=== PATIENT | female | born 1995 | race Caucasian/White ===

== ENCOUNTER 2023-01-22 14:28 | Outpatient (OUT) | payer BC, SELFPAY ==
--- NOTE | 2023-01-22 14:29 | US_ITS ---
[place] [id number] Patient Name: LEENA OCRDERO MRN: [id number] date: 1995 Sex: F Assigned Patient Location: US Current Patient Location: US Accession/Order Number: [id number] Exam Date: 01/22/2023 14:30 Report Date: 01/22/2023 15:40 At the request of: GINNY JAMES Procedure: US OB transvaginal EXAMINATION: US OB transvaginal HISTORY: MISSED MENSES COMPARISON: No relevant comparison available. FINDINGS: GESTATIONAL SAC: Present and normal appearing. YOLK SAC: Present and normal appearing. POLE: Present and normal appearing. CARDIAC: Present. UTERUS: Normal size and appearance. OVARIES: Right: Normal. Left: Normal. CERVIX: 4.8 cm in length and closed. CUL-DE-SAC: Normal. OTHER: Prominent periuterine vessels; nonspecific. AGE BY LMP: 9 weeks 0 days MARIO BY LMP: 08/27/2023 AGE BY US CRL: 9 weeks 1 day MARIO BY US CRL: 08/26/2023 US/US OB transvaginal IMPRESSION: 1. Single live intrauterine . Electronically authenticated by: SAMIR SHANNON Date: 01/22/2023 15:40
== END 2023-01-22 14:29 | disposition home or self-care (01) ==
PROVIDERS: Visit Provider Obstetrics & Gynecology
DX: Z34.91 Encounter for supervision of normal pregnancy, unspecified, first trimester (principal); Z3A.09 9 weeks gestation of pregnancy; N92.6 Irregular menstruation, unspecified
CPT/HCPCS: 76817

== ENCOUNTER 2023-02-20 12:21 | Outpatient (OUT) | payer BC, SELFPAY ==
--- OUTSIDE RECORDS SUMMARY | 2023-02-20 12:26 | XMS_ITS | CCD ---
Author Name Unknown Address [address] [facility] [address] [place] [address] Organization [facility] Care Team Providers Care Quality Control Inspector Name Role Phone ERIKA, DR GROSS Admitting Unavailable ERIKA, DR GROSS Consulting Unavailable MISC, DR LOPES Primary Care Unavailable ERIKA, DR GROSS Attending Unavailable ERIKA, DR GROSS Admitting Unavailable ERIKA, DR GROSS Consulting Unavailable MISC, DR LOPES Primary Care Unavailable ERIKA, DR GROSS Attending Unavailable ERIKA, DR GROSS Consulting Unavailable ERIKA, DR GROSS Attending Unavailable ERIKA, DR GROSS Admitting Unavailable REQUEST, DR ZIMMERMAN LISTED Primary Care Unavaila ble ZIEBFELISHA, DR SAMIR Edgar Consulting Unavailable ERIKA, DR GROSS Attending Unavailable MISC, DR LOPES Primary Care Unavailable ERIKA, DR GROSS Admitting Unavailable ERIKA, DR GROSS Consulting Unavailable ERIKA, DR GROSS Attending Unavailable MISC, DR LOPES Primary Care Unavailable ERIKA, DR GROSS Admitting Unavailable WANA, DR WENDY Christiansen Consulting Unavailable ERIKA, DR GROSS Consulting Unavailable ERIKA, DR GROSS Attending Unavailable ERIKA, DR GROSS Admitting Unavailable MISC, DR LOPES Primary Care Unavailable ERIKA, DR GROSS Consulting Unavailable ERIKA, DR GROSS Admitting Unavailable MISC, DR LOPES Primary Care Unavailable ERIKA, DR GROSS Consulting Unavailable ERIKA, DR GROSS Attending Unavailable ZIEBER, DR SAMIR Edgar Consulting Unavailable ERIKA, DR GROSS Attending Unavailable ERIKA, DR GROSS Admitting Unavailable ERIKA, DR GROSS Consulting Unavailable MISC, DR LOPES Primary Care Unavailable REIKA, DR GROSS Attending Unavailable ERIKA, DR GROSS Admitting Unavailable MISC, DR LOPES Primary Care Unavailable ERIKA, DR GROSS Consulting Unavailable LARA YOON Consulting Unavailable ERIKA, DR GROSS Procedure Practitioner Unavailab kavon REBOLLEDO, DR GROSS Admitting Unavailable MISC, DR LOPES Primary Care Unavailable ERIKA, DR GROSS Consulting Unavailable ERIKA, DR GROSS Attending Unavailable ZIEBER, DR SAMIR Edgar Consulting Unavailable MISC, DR LOPES Primary Care Unavailable KARASIK, DR WHITTEN Attending Unavailable ISABELLAASIK, DR WHITTEN Admitting Unavailable KARASIK, DR WHITTEN Consulting Unavailable ERIKA, DR GROSS Admitting Unavailable MISC, DR LOPES Primary Care Unavailable ERIKA, DR GROSS Consulting Unavailable ERIKA, DR GROSS Attending Unavailable Keith GARCIA Primary Care Physician NONE, XXXX Primary Care Physician Unavailab Ritesh David Attending Unavailable Amado Rordiguez Attending Unavailable Medications Current Medications Medication Drug Class(es) Dates Sig (Normalized) Sig (Original) citalopram 20 mg oral tablet (1 source) Serotonin Reuptake Inhibitor Start: 01-02-2023 citalopram 20 mg Tab Refills(s) 0 Start Date: 01/02/23 Status: Ordered dicyclomine hydrochloride 10 mg oral capsule (1 source) Anticholinergic Start: 01-02-2023 take 2 capsules by mouth four times daily Bentyl 10 mg Cap 20 mg = 2 cap(s), Oral, QID, # 20 cap(s), Refills(s) 0, Pharmacy: [facility]/pharmacy #[id number], 160.1, cm, 01/02/23 9:00:00 EST, Height/Length Dosing, 58.8, kg, 01/02/23 9:00:00 EST, Weight Dosing Start Date: 01/02/23 Status: Ordered ethinyl estradiol 0.02 mg / norethindrone acetate 1 mg oral tablet (1 source) Estrogen Start: 08-14-2020 Microgestin 03/14 20 mcg-1 mg oral tablet Refill(s) 0 Start Date: 08/14/20 Status: Ordered naproxen 500 mg delayed release oral tablet (1 source) Nonsteroidal Anti-inflammatory Drug Start: 06-21-2022 take 1 tablet by mouth twice daily as needed for pain naproxen 500 mg oral enteric coated tablet 500 mg = 1 tab(s), Oral, BID, PRN Pain, # 14 tab(s), Refills(s) 0, [id number] 160, cm, 06/20/22 23:30:00 EDT, Height/Length Dosing, 55, kg, 06/20/22 23:30:00 EDT, Weight Dosing Start Date: 06/21/22 Status: Ordered Zofran ODT 4 mg Tab-Dis (2 sources) Start: 01-02-2023 take 1 tablet by mouth every six hours as needed for nausea Zofran ODT 4 mg Tab-Dis 4 mg = 1 tab(s), Oral, q6hr, PRN Nausea/Vomiting, # 12 tab(s), Refills(s) 0, [id number] 160.1, cm, 01/02/23 9:00:00 EST, Height/Length Dosing, 58.8, kg, 01/02/23 9:00:00 EST, Weight Dosing Start Date: 01/02/23 Status: Ordered Start: 06-21-2022 take 1 tablet by mandy th every eight hours as needed for nausea Zofran ODT 4 mg Tab-Dis 4 mg = 1 tab(s), Oral, q8hr, PRN Nausea/Vomiting, # 16 tab(s), Refills(s) 0, [id number], 160, cm, 06/20/22 23:30:00 EDT, Height/Length Dosing, 55, kg, 06/20/22 23:30:00 EDT, Weight Dosing Start Date: 06/21/22 Status: Ordered Problems Active Problems Problem Classification Problem Date Documented Da te Episodic/Chronic Abdominal pain (2 sources) Abdominal pain; Translations: [Unspecified abdominal pain] Onset: 06-21-2022 Episodic Anxiety disorders (1 source) Anxiety disorder, unspecified; Translations: [ANXIETY DISORDER UNSPECIFIED] Onset: 11-21-2021 Chronic Menstrual disorders (4 sources) Irregular menstruation, unspecified; Translations: [IRREGULAR MENSTRUATION UNSPECIFIED] Onset: 04-05-2021 Chronic Mood disorders (1 source) Major depressive disorder, single episode, unspecified; Translations: [LAURA DEPRESS D/O SINGLE EPIS UNS] Onset: 11-21-2021 Chronic Nausea and vomiting (1 source) Vomiting; Translations: [Vomiting, unspecified] Onset: 01-02-2023 Episodic Other complications of ; puerperium affecting management of mother (1 source) Streptococcus B carrier state complicating childbirth; Translations: [STREP B HESS STATE COMP CHILDBIRTH] Onset: 11-21-2021 Episodic Other complications of ; puerperium affecting management of mother (1 source) Other mental disorders complicating childbirth; Translations: [OTH MENTAL D/O COMP CHILDBIRTH] Onset: 11-21-2021 Episodic Other complications of (4 sources) Maternal care for excessive growth, third trimester, not applicable or unspecified; Translations: [MAT CARE EXCSS FTL GRTH 3RD TRI UNS] Onset: 10-23-2021 Episodic Other gastrointestinal disorders (1 source) Diarrhea; Translations: [Diarrhea, unspecified] Onset: 01-02-2023 Episodic Other and delivery including normal (11 sources) Single live ; Translations: [Encounter for supervision of normal , unspecified, unspecified trimester] Onset: 04-10-2021 Episodic Other screening for suspected conditions (not mental disorders or infectious disease) (13 sources) Encounter for screening for Streptococcus B; Translations: [Encounter for screening for diabetes mellitus] Onset: 05-02-2021 Episodic Residual codes; unclassified (1 source) 39 weeks gestation of ; Translations: [39 WEEKS GESTATION OF ] Onset: 11-21-2021 Episodic Residual codes; unclassified (1 source) 36 weeks gestation of ; Translations: [36 WEEKS GESTATION OF ] Onset: 10-23-2021 Episodic Residual codes; unclassified (1 source) 32 weeks gestation of ; Translations: [32 WEEKS GESTATION OF ] Onset: 09-29-2021 Episodic Screening and history of mental health and substance abuse codes (1 source) Personal history of nicotine dependence; Translations: [PERSONAL HISTORY OF NICOTINE DEPEND] Onset: 11-21-2021 Episodic Substance-related disorders (2 sources) Drug use complicating childbirth; Translations: [Cannabis use, unspecified, uncomplicated] Onset: 11-21-2021 Episodic Unclassified (1 source) CONTACT W/AND (SUSP) EXPOS COVID-19; Translations: [CONTACT W/AND (SUSP) EXPOS COVID-19] Onset: 11-21-2021 Past or Other Problems Problem Classification Problem Date Documented Date Episodic/Chronic Immunizations and screening for infectious disease (5 sources) Encounter for screening for infections with a predominantly sexual mode of transmission; Translations: [Contact with and (suspected) exposure to infections with a predominantly sexual mode of transmission] Onset: 04-30-2021 Episodic Other female genital disorders (4 sources) Other specified noninflammatory disorders of vagina; Translations: [OTH SPEC NONINFLAMMATORY D/O VAGINA] Onset: 07-30-2021 Episodic Residual codes; unclassified (1 source) Less than 8 weeks gestation of ; Translations: [< 8 WEEKS GESTATION ] Onset: 04-10-2021 Episodic Results Test Name Value Interpretation Reference Range Facility Auto Diffon 01-02-2023 Basophils/100 WBC (Bld) 0.2 % Normal 0.0-2.0 [facility] Comment on above: Order Comment: Order Added by Discern Expert. Performed By: #### 2 [id number], [id number], 5545528, 5044735, 7712748, 1725079, 27901967 ####[facility] [address] [place] [address] Basophils/Leukocytes Auto (Bld) [Pure # fraction] 0.0 E9/L Normal 0.0-0.2 [facility] Comment on above: Order Comment: Order Added by Discern Expert. Performed By: #### 2 656668, 55655353, 9479963, 8281352, 8212814, 5365857, 33416497 ####[facility] [address] [place] [address] Eosinophils/100 WBC (Bld) 0.1 % Normal 0.0-8.0 [facility] Comment on above: Order Comment: Order Added by Discern Expert. Performed By: #### 2 297744, 43080541, 8938526, 7057330, 6344977, 5160034, 73321947 ####[facility] [address] [place] [address] Eosinophils/Leukocytes Auto (Bld) [Pure # fraction] 0.0 E9/L Normal 0.0-0.5 [facility] Comment on above: Order Comment: Order Added by Discern Expert. Performed By: #### 2 119086, 37164104, 0963516, 4259483, 7967604, 8150145, 81789100 ####[facility] [address] [place] [address] Lymphocytes/100 WBC (Bld) 8.0 % Low 14.0-50.0 [facility] Comment on above: Order Comment: Order Added by Discern Expert. Performed By: #### 2 616443, 97092914, 1372944, 2991215, 9112318, 5737653, 46593010 ####[facility] [address] [place] [address] Lymphocytes/Leukocytes Auto (Bld) [Pure # fraction] 1.1 E9/L Normal 1.0-4.0 [facility] Comment on above: Order Comment: Order Added by Mendy Expert. Performed By: #### 2 302710, 85399333, 0331351, 4564686, 8406049, 7485946, 41833708 ####[facility] [address] [place] [address] Monocytes/100 WBC (Bld) 2.9 % Low 4.0-14.0 [facility] Comment on above: Order Comment: Order Added by Mendy Expert. Performed By: #### 2 410404, 76848291, 5156229, 9404134, 4807069, 1369243, 25779142 ####[facility] [address] [place] [address] Monocytes/Leukocytes Auto (Bld) [Pure # fraction] 0.4 E9/L Normal 0.2-1.0 [facility] Comment on above: Order Comment: Order Added by Mendy Expert. Performed By: #### 2 246764, 90905997, 9614054, 3849104, 6443528, 9254807, 22375015 ####[facility] [address] [place] [address] Neutrophils/100 WBC (Bld) 88.8 % High 36.0-75.0 [facility] Comment on above: Order Comment: Order Added by Discern Expert. Performed By: #### 2 020351, 94940923, 5121335, 3632835, 4304350, 4753116, 93926983 ####[facility] [address] [place] [address] Neutrophils/Leukocytes Auto (Bld) [Pure # fraction] 12.0 E9/L High 2.0-7.5 [facility] Comment on above: Order Comment: Order Added by Discern Expert. Performed By: #### 2 592495, 02802920, 7045611, 4896463, 7324720, 8946132, 84773202 ####[facility] [address] [place] [address] BMPon 01-02-2023 Creatinine [Mass/Vol] 0.5 mg/dL Normal 0.5-1.3 [facility] Comment on above: Performed By: #### 2 516217, 55719976, 7717010, 6778545, 2235422, 2767906, 71564407 ####[facility] [address] [place] [address] Urea nitrogen [Mass/Vol] 10 mg/dL Normal 5-21 [facility] Comment on above: Performed By: #### 2 782287, 49751834, 1518412, 3115300, 3599590, 0507255, 95743778 ####[facility] [address] [place] [address] Urea nitrogen/Creatinine [Mass ratio] 20 No Units Normal 10-20 [facility] Comment on above: Performed By: #### 2 891188, 82747519, 7793878, 2036273, 5830061, 8050910, 21939464 ####[facility] [address] [place] [address] Anion gap [Moles/Vol] 14 mmol/L Normal 6-16 [facility] Comment on above: Performed By: #### 2 076792, 42619123, 8315319, 0153530, 9765782, 5955469, 34106268 ####[facility] [address] [address] Calcium [Mass/Vol] 8.9 mg/dL Normal 8.9-11.1 [facility] Comment on above: Performed By: #### 2 401155, 40864522, 2110712, 5043949, 7511575, 5842110, 25891426 ####[facility] [address] [address] Chloride [Moles/Vol] 103 mmol/L Normal 101-111 [facility] Comment on above: Performed By: #### 2 920549, 53286946, 5713188, 7719709, 5951478, 3642764, 79584582 ####[facility] [address] [place] [address] CO2 [Moles/Vol] 21 mmol/L Normal 21-31 [facility] Comment on above: Performed By: #### 2 380701, 42765737, 5261553, 0591770, 3623730, 4909535, 71997102 ####[facility] [address] [place] [address] Glucose [Mass/Vol] 119 mg/dL Normal 55-199 [facility] Comment on above: Result Comment: If t his glucose result represents a fasting glucose, interpretation should refer to the following reference range: 55-99 mg/dL Performed By: #### 2 485810, 26089963, 3297054, 5284789, 3875032, 5062053, 53272371 ####[facility] [address] [address] Potassium [Moles/Vol] 3.2 mmol/L Low 3.5-5.3 [facility] Comment on above: Performed By: #### 2 826051, 21392231, 8870590, 5623383, 7843026, 4256794, 70124951 ####[facility] [address] [address] Sodium [Moles/Vol] 135 mmol/L Normal 135-145 [facility] Comment on above: Performed By: #### 2 889086, 24885144, 1890152, 2806402, 6449271, 5312823, 87608859 ####[facility] [address] [place] [address] BhCG Quanton 01-02-2023 [place] [address] m[IU]/mL High 1-3 [facility] Comment on above: Result Comment: GEST ATIONAL AGE HCG RANGE (mIU/mL) NON- <1-3 0.2-1 WEEKS 5-50 1-2 WEEKS 50-500 2-3 WEEKS 100-5,000 3-4 WEEKS 500-10,000 4-5 WEEKS 1,000-50,000 5-6 WEEKS 10,000-100,000 6-8 WEEKS 15,000-200,000 8-12 WEEKS 10,000-100,000 Performed By: #### 2 585373 ####[facility] [address] [place] [place] [address] CBC w/ Auto Diffon Erythrocyte distribution width (RBC) [Ratio] 12.3 % Normal 10.9-14.2 [facility] Comment on above: Performed By: #### 2 506163, 00336241, 4439595, 1759548, 8691414, 7810922, 57957651 ####[facility] [address] [place] [address] Hematocrit (Bld) [Volume fraction] 36.5 % Normal 34.0-46.0 [facility] Comment on above: Performed By: #### 2 840676, 06659442, 7902731, 2790454, 6158377, 5909866, 79743703 ####[facility] [address] [place] [address] Hemoglobin (Bld) [Mass/Vol] 12.4 g/dL Normal 12.0-16.0 [facility] Comment on above: Performed By: #### 2 855326, 81178475, 4166955, 6840923, 1572997, 9032001, 58827332 ####[facility] [address] [place] [address] MCH (RBC) [Entitic mass] 30.1 pg Normal 27.0-34.0 [facility] Comment on above: Performed By: #### 2 503822, 96066666, 6326185, 9561017, 2933148, 7319054, 15774657 ####[facility] [address] [place] [address] MCHC (RBC) [Mass/Vol] 33.9 g/dL Normal 31.4-36.0 [facility] Comment on above: Performed By: #### 2 675746, 56784065, 3449039, 3421702, 2528025, 7531636, 43741494 ####[address] [address] MCV (RBC) [Entitic vol] 88.8 fL Normal 80.0-100.0 [facility] Comment on above: Performed By: #### 2 020647, 06774018, 6005106, 2235465, 3199376, 0840236, 00681578 ####[address] [address] Platelet mean volume (Bld) [Entitic vol] 7.4 fL Normal 6.4-10.8 [facility] Comment on above: Performed By: #### 2 133405, 81811789, 8935570, 3324848, 8938068, 4230021, 40660334 ####[facility] [address] [place] [address] Platelets (Bld) [#/Vol] 283.0 E9/L Normal 150.0-500.0 [facility] Comment on above: Performed By: #### 2 077913, 88436222, 0818828, 2018009, 6592094, 5229293, 56237356 ####[address] [address] RBC (Bld) [#/Vol] 4.1 E12/L Low 4.3-5.9 [facility] Comment on above: Performed By: #### 2 338681, 22840341, 3969420, 4346047, 5383730, 9096423, 35196051 ####[facility] [address] [place] [address] WBC corrected for nucl RBC Auto (Bld) [#/Vol] 13.5 E9/L High 4.0-11.0 [facility] Comment on above: Performed By: #### 2 882633, 54569559, 0883198, 3840843, 8554834, 6586554, 43406788 ####[facility] [address] [place] [address] CHEMISTRYOrdered By: SYSTEM SYSTEM on 01-02-2023 Albumin [Mass/Vol] 4.1 g/dL Normal 3.3 - 5.0 gm/dL [facility] Albumin/Globulin [Mass ratio] 1.2 {ratio} Normal 1.1 - 2.2 [facility] ALP [Catalytic activity/Vol] 57 [iU]/d Normal 21 - 98 Int._Unit/L [facility] ALT No additional P-5'-P [Catalytic activity/Vol] 13 [iU]/d Normal 6 - 46 Int._Unit/L [facility] Anion gap [Moles/Vol] 14 mmol/L Normal 6 - 16 mEq/L [facility] AST [Catalytic activity/Vol] 26 [iU]/d Normal 5 - 43 Int._Unit/L [facility] Bilirubin [Mass/Vol] 1.0 mg/dL Normal 0.0 - 1 .1 mg/dL [facility] Bilirubin.direct [Mass/Vol] 0.2 mg/dL Normal 0.1 - 0.4 mg/dL [facility] Bilirubin.indirect [Mass or moles/Vol] 0.8 mg/dL Normal 0.1 - 0.9 mg/dL [facility] Calcium [Mass/Vol] 8.9 mg/dL Normal 8.9 - 11. 1 mg/dL [facility] Chloride [Moles/Vol] 103 mmol/L Normal 101 - 1 11 mmol/L [facility] CO2 [Moles/Vol] 21 mmol/L Normal 21 - 31 mmol/L [facility] Creatinine [Mass/Vol] 0.5 mg/dL Normal 0.5 - 1.3 mg/dL [facility] GFR/1.73 sq M.predicted among non-blacks MDRD (S/P/Bld) [Vol rate/Area] 133 mL/min/1.73 m2 Normal >=59mL/min/1 .73 m2 [facility] Chem S Comment on above: Interpretive Data: C hronic kidney disease could be indicated at eGFR's of less than 60 mL/min/1.73m2. Kidney failure is indicated at less than 15 mL/min/1.73m2. Globulin (S) [Mass/Vol] 3.5 g/dL Normal 1.4 - 4.0 gm/dL [facility] Glucose [Mass/Vol] 119 mg/dL Normal 55 - 199 mg/dL [facility] Comment on above: Interpretive Data: I f this glucose result represents a fasting glucose, interpretation should refer to the following reference range: 55-99 mg/[place] [address] m[IU]/mL High 1 - 3 mIU/mL [facility] Comment on above: Interpretive Data: G ESTATIONAL AGE HCG RANGE (mIU/mL) NON- <1-3 0.2-1 WEEKS 5-50 1-2 WEEKS 50-500 2-3 WEEKS 100-5,000 3-4 WEEKS 500-10,000 4-5 WEEKS 1,000-50,000 5-6 WEEKS 10,000-100,000 6-8 WEEKS 15,000-200,000 8-12 WEEKS 10,000-100,000 Lipase [Catalytic activity/Vol] 79 U/L High 13 - 58 unit/L [facility] Potassium [Moles/Vol] 3.2 mmol/L Low 3.5 - 5.3 mmol/L [facility] Protein [Mass/Vol] 7.6 g/dL Normal 6.0 - 7.8 gm/dL [facility] Sodium [Moles/Vol] 135 mmol/L Normal 135 - 145 mmol/L [facility] Urea nitrogen [Mass/Vol] 10 mg/dL Normal 5 - 21 mg/dL [facility] nitrogen/Creatinine [Mass ratio] 20 mg/mg Normal 10 - 20 [facility] COAGULATIONOrdered By: Natalia Wang on 01-02-2023 aPTT Coag (PPP) [Time] 29.4 s Normal 25.1 - 36.5 second(s) [facility] Auto Coag Comment on above: Interpretive Data: P arameter 15 days - 4 weeks 1 - 5 months 6 - 11 months 1 - 5 years 6 - 10 years 11 - 17 years PTT Mean: 35.4 (27.6-45.6) Mean: 33.5 (24.8-40.7) Mean: 32.4 (25.1-40.7) Mean: 31.6 (24.0-39.2) Mean: 31.6 (26.9-38.7) Mean: 31.0 (24.6-38.4) Pediatric Reference ranges were obtained from a study by Kyle Siddiqui et al. prepared from 1437 samples obtained at 7 different centers using the same coagulation reagent and instrumentation as [facility]. Currently there are no coagulation studies available worldwide for children to 14 days, and no normal ranges. Heparin therapeutic range (represented by Anti-Factor Xa activity of 0.2 - 0.4 U/mL) corresponds to PTT of 56.6 - 109.0 sec. INR Coag (PPP) [Relative time] 1.1 {INR} Invalid Interpretation Code [facility] Auto Coag Comment on above: Interpretive Data: I NR results are specifically intended to assess patients stabilized on long-term Anticoagulation therapy suggested INR s Less Intensive Anticoagulation 2.0 3.0 Conventional Range 3.0 4.5 PT Coag (PPP) [Time] 12.1 s Normal 9.4 - 1 2.5 second(s) [facility] Auto Coag Comment on above: Interpretive Data: 1 5 days - 4 weeks 1 - 5 months 6 -11 months 1 5 years 6 10 years 11 -17 years Mean: 11.2 (9.5 12.6) Mean: 11.0 (9.7 12.8) Mean: 11.0 (9.8 13.0) Mean: 11.3 (9.9 13.4) Mean: 11.7 (10.0 14.6) Mean: 11.8 (10.0 - 14.1) Pediatric Reference ranges were obtained from a study by Kyle Siddiqui et al. prepared from 1437 samples obtained at 7 different centers using the same coagulation reagent and instrumentation as [facility]. Currently there are no coagulation studies available worldwide for children to 14 days, and no normal ranges. Consent for Treatmenton 12-24 Consent for Treatment [id number] #1.00TIFF Normal [facility] Discharge Instructionson Discharge Instructions [id number]#1.00TIFF Normal [facility] ED Clinical Summaryon 2022 ED Clinical Summary [place] [id number] ED Clinical Summary Person Information Name: LEENA CORDERO Zina/[facility] Age: 27 Years : 1995 Sex: Female Language: Argentine PCP: NONE, XXXX Marital Status: Single Visit Id: Visit Reason: Vomiting; Abdominal pain - ; ABDOMINAL PAIN, LEFT SIDE, VOMITING, DIAREHA Speciality: Acuity: 3 Enc Type: Emergency Med Service: Emergency Arrival: 01/02/2023 08:53:06 Discharge: 01/02/2023 13:45:47 LOS: 000 04:52 Checkin: 01/02/2023 08:53:06 Checkout: 01/02/2023 13:45:47 Dispo Type: Home (Routine DC) EVENTS: Event Name Event Status Request Date/Time Start Date/Time Complete Date/Time Arrive Complete 01/02/2023 08:53:06 01/02/2023 08:53:06 01/02/2023 08:53:06 Document Home Meds Request 01/02/2023 08:53:06 Triage Complete 01/02/2023 08:53:06 01/02/2023 09:00:24 01/02/2023 09:00:24 Bed Assign Complete 01/02/2023 08:55:15 01/02/2023 08:55:15 01/02/2023 08:55:15 Dr Exam Complete 01/02/2023 08:55:15 01/02/2023 08:58:26 01/02/2023 08:58:26 RN Exam Complete 01/02/2023 08:55:15 01/02/2023 09:06:42 01/02/2023 09:06:42 Registration Complete 01/02/2023 08:57:19 01/02/2023 08:57:19 01/02/2023 08:57:19 Reg Complete Request 01/02/2023 08:57:19 Reg Bed Request Complete 01/02/2023 08:57:19 01/02/2023 08:57:19 01/02/2023 08:57:19 Registration Request 01/02/2023 08:58:26 Meds Admin Complete 01/02/2023 09:08:17 01/02/2023 09:30:02 Pending Labs Complete 01/02/2023 09:08:17 01/02/2023 11:13:19 Lab Complete 01/02/2023 09:08:17 01/02/2023 11:13:19 Urine Collect Complete 01/02/2023 09:08:17 01/02/2023 11:13:19 Pending Labs Complete 01/02/2023 09:21:04 01/02/2023 09:21:04 01/02/2023 09:42:58 Lab Complete 01/02/2023 09:21:04 01/02/2023 09:21:04 01/02/2023 09:42:58 Pending Labs Complete 01/02/2023 09:25:31 01/02/2023 09:25:31 01/02/2023 09:25:31 Pending Labs Complete 01/02/2023 09:26:33 01/02/2023 09:26:33 01/02/2023 09:26:43 Lab Complete 01/02/2023 09:26:33 01/02/2023 09:26:33 01/02/2023 09:26:43 US Complete 01/02/2023 10:09:14 01/02/2023 10:46:52 01/02/2023 11:36:24 Meds Admin Complete 01/02/2023 10:12:45 01/02/2023 10:24:51 Meds Admin Complete 01/02/2023 10:16:51 01/02/2023 10:24:52 US Complete 01/02/2023 10:20:20 01/02/2023 10:46:55 01/02/2023 11:36:43 Patient Care Complete 01/02/2023 10:47:32 01/02/2023 10:48:45 Pending Labs Request 01/02/2023 10:47:32 Lab Request 01/02/2023 10:47:32 Urine Collect Request 01/02/2023 10:47:32 US Complete 01/02/2023 11:37:16 01/02/2023 11:37:47 Meds Admin Complete 01/02/2023 11:40:53 01/02/2023 11:49:32 Discharge Complete 01/02/2023 13:28:35 01/02/2023 13:45:55 01/02/2023 13:45:55 Transfer Complete 01/02/2023 13:45:55 01/02/2023 13:45:55 01/02/2023 13:45:55 ADDRESS: [address] [place] [phone] PHYS DOC NOTES: MEDICAL INFORMATION: Prescriptions Given: New Medications [facility] [facility]/pharmacy #[id number], [address] [place], [place] [id number], [phone] dicyclomine (Bentyl 10 mg Cap) 2 Capsules By Mouth 4 times a day. Refills: 0. ondansetron (Zofran ODT 4 mg Tab-Dis) 1 Tablets By Mouth every 6 hours as needed Nausea/Vomiting. Refills: 0. Medications to Continue with No Changes Other Medications citalopram (citalopram 20 mg Tab) PATIENT EDUCATION INFORMATION: Instructions: First Trimester of ; Diarrhea, Adult; Nausea and Vomiting, Adult; Abdominal Pain, Adult Follow up: With: Address: When: Ginny REBOLLEDO [facility], [address] [place] [address] , [place] [address] Business (1) In 3 days 01/05/2023 Comments: Make sure to follow-up with Dr. Rebolledo for your . Follow-up with Dr. Cuellar for the belly pain. Return to the emergency room if the abdominal pain recurs, vomiting recurs, vaginal bleeding or any new symptoms. With: Address: When: Patricia Murrieta In 3 days 01/05/2023 DIAGNOSIS: 1:Abdominal pain; 2:Vomiting and diarrhea; 3:Intrauterine ; Diarrhea, unspecified Normal [facility] ED Note-Physicianon 01-03-20 ED Note-Physician Basic Information Time Seen: Amado Rodriguez M.D. 01/02/2023 08:58 Chief Complaint Patient presens with vomitting and left upper abd pain that started this morning. pt 6 weeks History of Present Illness The patient is a 27-year-old female 6 weeks , A0, who presented to the emergency room with abdominal pain, vomiting and diarrhea. The patient states she woke up this morning with vomiting, diarrhea and abdominal pain. Her diarrhea is loose. Denies any blood with diarrhea. She reports vomiting unable to keep anything down. The patient is complaining of pain and points to the left upper quadrant. She describes the pain as achy/sharp. The patient reports some chills but no fever. She denies any vaginal bleeding or vaginal discharge. The patient denies any other associated symptoms. Review of Systems Additional ROS info: Except as noted in the above Review of Systems and in the History of Present Illness all other systems have been reviewed and are negative or noncontributory. Physical Exam Vitals & Measurements T: 36.6 ?C(Oral) HR: 67(Monitored) RR: 16 BP: 107/81 SpO2: 100% HT: 160.08 cm WT: 58.8 kg BMI: 22.95 General: alert, mild distress Skin: warm, dry Head: no trauma, normocephalic Neck: Trachea midline Eye: normal conjunctiva, sclera clear ENMT: Oral mucosa moist Cardiovascular: regular rate and rhythm Respiratory: Lungs CTA, respirations non labored, breath sounds equal Gastrointestinal: soft, non distended, mild to moderate tenderness in epigastric and left upper quadrant, no guarding, normal bowel sounds Musculoskeletal: normal ROM, no tenderness, normal strength. Extremities: no deformity, no trauma Neurological: Alert and oriented, speech normal, no focal neuro deficits Psychiatric: cooperative, affect appropriate for age Medical Decision Making MEDICAL DECISION MAKING Number and Complexity of Problems Differential Diagnosis: [] [facility] Data External documents reviewed: [] My EKG interpretation: [] My CT interpretation: [] My X-ray interpretation: [] My Ultrasound interpretation: [] Decision rules/scores evaluated: [] Discussed with: [] Treatment and Disposition ED Course: The patient presented with abdominal pain vomiting and diarrhea. She points to the epigastric area and left upper quadrant for the pain. She has mild tenderness in epigastric and left upper quadrant. Abdomen is soft. Does not appear to be surgical. The patient states she is 6 weeks . She has no vaginal bleeding. Beta hCG quant is 35,505 the rest of blood work shows slight leukocytosis. More likely reactive. More likely her vomiting and diarrhea and abdominal pain are due to viral gastroenteritis. Ultrasound of the gallbladder is negative. Pelvic ultrasound shows intrauterine single consistent with 6 weeks and 2 days. heart tone 117 bpm. The patient was given IV fluid antiemetic pain medication and her pain improved. She felt much better and comfortable. She feels comfortable going home. We will discharge patient home follow-up with her primary care and her OB. She is instructed to return to the emergency room if her pain gets worse, vaginal bleeding or any new symptoms. Shared decision making: [] Code status: [] Assessment/Plan 1. Abdominal pain (R10.9: Unspecified abdominal pain) 2. Vomiting and diarrhea (R11.10: Vomiting, unspecified) 3. Intrauterine (Z34.90: Encounter for supervision of normal , unspecified, unspecified trimester) Diarrhea, unspecified (R19.7: Diarrhea, unspecified) Orders: acetaminophen + Generic Diluent 100 mL, 1,000 mg = 100 mL, Soln-IV, IV Piggyback, Once, Stop date 01/02/23 10:12:00 EST, STAT, Start date 01/02/23 10:12:00 EST, 400 mL/hr, Infuse over 15 minute(s) dicyclomine, 20 mg = 2 mL, Injection, IntraMuscular, Once, Stop date 01/02/23 9:08:00 EST, STAT, Start date 01/02/23 9:08:00 EST, 01/02/23 9:08:00 EST dicyclomine, 20 mg = 2 cap(s), Oral, QID, # 20 cap(s), Refills(s) 0, [id number], 160.1, cm, 01/02/23 9:00:00 EST, Height/Length Dosing, 58.8, kg, 01/02/23 9:00:00 EST, Weight Dosing famotidine, 20 mg = 2 mL, Soln-IV, IV Push, Once, Stop date 01/02/23 10:16:00 EST, STAT, Start date 01/02/23 10:16:00 EST, 01/02/23 10:16:00 EST nalbuphine, 5 mg = 0.5 mL, Injection, IV Push, Once, Stop date 01/02/23 11:40:00 EST, STAT, Start date 01/02/23 11:40:00 EST, 01/02/23 11:40:00 EST ondansetron, 4 mg = 2 mL, Injection, IV Push, Once, Stop date 01/02/23 9:08:00 EST, STAT, Start date 01/02/23 9:08:00 EST, 01/02/23 9:08:00 EST ondansetron, 4 mg = 1 tab(s), Oral, q6hr, PRN Nausea/Vomiting, # 12 tab(s), Refills(s) 0, Pharmacy: [facility]/pharmacy #[id number], 160.1, cm, 01/02/23 9:00:00 EST, Height/Length Dosing, 58.8, kg, 01/02/23 9:00:00 EST, Weight Dosing Sodium Chloride 0.9% intravenous solution, 1,000 mL, Soln-IV, IV, Once, Stop date 01/02/23 9:08:00 EST, STAT, Start date 01/02/23 9:08:00 E (more content not included)... [facility] Comment on above: Result Comment: Elec tronically Signed By: Jennifer Lopez, Amado Nixon\.br\Date and Time Signed: 01/02/23 16:52 EST ED Patient Education Noteon 01-02-2023 ED Patient Education Note Gastroenterology Nausea and Vomiting, Adult Nausea is the feeling that you have an upset stomach or that you are about to vomit. As nausea gets worse, it can lead to vomiting. Vomiting is when stomach contents forcefully come out of your mouth as a result of nausea. Vomiting can make you feel weak and cause you to become dehydrated. Dehydration can make you feel tired and thirsty, cause you to have a dry mouth, and decrease how often you urinate. Older adults and people with other diseases or a weak disease-fighting system (immune system) are at higher risk for dehydration. It is important to treat your nausea and vomiting as told by your health care provider. Follow these instructions at home: Watch your symptoms for any changes. Tell your health care provider about them. Eating and drinking ? Take an oral rehydration solution (ORS). This is a drink that is sold at pharmacies and retail stores. ? Drink clear fluids slowly and in small amounts as you are able. Clear fluids include water, ice chips, low-calorie sports drinks, and fruit juice that has water added (diluted fruit juice). ? Eat bland, fowm-pp-vkppkq foods in small amounts as you are able. These foods include bananas, applesauce, rice, lean meats, toast, and crackers. ? Avoid fluids that contain a lot of sugar or caffeine, such as energy drinks, sports drinks, and soda. ? Avoid alcohol. ? Avoid spicy or fatty foods. General instructions ? Take pwee-gzy-jonharj and prescription medicines only as told by your health care provider. ? Drink enough fluid to keep your urine pale yellow. ? Wash your hands often using soap and water for at least 20 seconds. If soap and water are not available, use hand transfer man. ? Make sure that everyone in your household washes their hands well and often. ? Rest at home while you recover. ? Watch your condition for any changes. ? Take slow and deep breaths when you feel nauseous. ? Keep all follow-up visits. This is important. Contact a health care provider if: ? Your symptoms get worse. ? You have new symptoms. ? You have a fever. ? You cannot drink fluids without vomiting. ? Your nausea does not go away after 2 days. ? You feel light-headed or dizzy. ? You have a headache. ? You have muscle cramps. ? You have a rash. ? You have pain while urinating. Get help right away if: ? You have pain in your chest, neck, arm, or jaw. ? You feel extremely weak or you faint. ? You have persistent vomiting. ? You have vomit that is bright red or looks like black coffee grounds. ? You have bloody or black stools (feces) or stools that look like tar. ? You have a severe headache, a stiff neck, or both. ? You have severe pain, cramping, or bloating in your abdomen. ? You have difficulty breathing, or you are breathing very quickly. ? Your heart is beating very quickly. ? Your skin feels cold and clammy. ? You feel confused. ? You have signs of dehydration, such as: ? Dark urine, very little urine, or no urine. ? Cracked lips. ? Dry mouth. ? Sunken eyes. ? Sleepiness. ? Weakness. These symptoms may be an emergency. Get help right away. Call 911. ? Do not wait to see if the symptoms will go away. ? Do not drive yourself to the hospital. Summary ? Nausea is the feeling that you have an upset stomach or that you are about to vomit. As nausea gets worse, it can lead to vomiting. Vomiting can make you feel weak and cause you to become dehydrated. ? Follow instructions from your health care provider about eating and drinking to prevent dehydration. ? Take ethn-rnb-xotfzmk and prescription medicines only as told by your health care provider. ? Contact your health care provider if your symptoms get worse, or you have new symptoms. ? Keep all follow-up visits. This is important. This information is not intended to replace advice given to you by your health care provider. Make sure you discuss any questions you have with your health care provider. Document Revised: 08/16/2021 Document Reviewed: 08/16/2021 [employer] Patient Education ? 2022 [employer] Abdominal Pain, Adult Pain in the abdomen (abdominal pain) can be caused by many things. Often, abdominal pain is not serious and it gets better with no treatment or by being treated at home. However, sometimes abdominal pain is serious. Your health care provider will ask questions about your medical history and do a physical exam to try to determine the cause of your abdominal pain. Follow these instructions at home: Medicines ? Take rdnt-ssh-ijhayvp and prescription medicines only as told by your health care provider. ? Do not take a laxative unless told by your health care provider. General instructions ? Watch your condition for any changes. ? Drink enough fluid to keep your urine pale yellow. ? Keep all follow-up visits as told by your h (more content not included)... Normal [facility] ED Patient Summaryon 023 ED Patient Summary [address] [address] Patient Discharge Instructions Person Information Name: LEENA CORDERO Age: 27 Years Arrival Date: 01/02/2023 08:53:06 Discharge Diagnosis: 1:Abdominal pain; 2:Vomiting and diarrhea; 3:Intrauterine ; Diarrhea, unspecified Primary Care Physician: NONE, XXXX Provider Information Primary Provider: Amado Rodriguez M.D. Advanced Director Of Student Life:None The exam and treatment you received in the Emergency Department were for an urgent problem and are not intended as complete care. It is important that you follow up with a doctor, nurse practitioner, or physician?s licensed physical therapy assistant for ongoing care. If your symptoms become worse or you do not improve as expected and you are unable to reach your usual health care provider, you should return to the Emergency Department. We are available 24 hours a day. LEENA CORDERO has been given the following list of patient education materials, prescriptions and follow-up instructions: Follow-up Instructions: With: Address: When: Ginny REBOLLEDO [facility], [address] [place] [address] [place] [address] [facility] () In 3 days 01/05/2023 Comments: Make sure to follow-up with Dr. Rebolledo for your . Follow-up with Dr. Cuellar for the belly pain. Return to the emergency room if the abdominal pain recurs, vomiting recurs, vaginal bleeding or any new symptoms. With: Address: When: Patricia Murrieta In 3 days 01/05/2023 In the event that this physician does not participate in your insurance network, please consult with your insurance company to find a nearby participating provider. Patient Education Materials: First Trimester of ; Diarrhea, Adult; Nausea and Vomiting, Adult; Abdominal Pain, Adult A MESSAGE TO ALL PATIENTS REGARDING OPIOIDS PRESCRIPTION OPIOIDS: WHAT YOU NEED TO KNOW Prescription opioids can be used to help relieve oltvoxrv-pp-ftvcsp pain and are often prescribed following a surgery or injury, or for certain health conditions. These medications can be an important part of the treatment but also come with serious risks. It is important to work with your healthcare provider to make sure you are getting the safest, most effective care. WHAT ARE THE RISKS AND SIDE EFFECTS OF OPIOID USE? Prescription opioids carry serious risks of addiction and overdose, especially with prolonged use. An opioid overdose, often marked by slowed breathing, can cause sudden . The use of prescription opioids can have a number of side effects as well, even when taken as directed: ? Tolerance?meaning you might need to take more of the medication for the same pain relief ? Physical dependence?meaning you have symptoms of withdrawal when a medication is stopped ? Increased sensitivity to pain ? Constipation ? Nausea, vomiting, and dry mouth ? Sleepiness and dizziness ? Confusion ? Depression ? Low levels of testosterone that can result in lower sex drive, energy, and strength ? Itching and sweating RISKS ARE GREATER WITH: ? History of drug misuse, substance use disorder, or overdose ? Mental health conditions (such as depression or anxiety) ? Sleep apnea ? Older age (65 years and older) ? Avoid alcohol while taking prescription opioids. Also, unless specifically advised by your health care provider, medications to avoid include: ? Benzodiazepines (such as Xanax or Valium) ? Muscle relaxants (such as Soma or Flexeril) ? Hypnotics (such as Ambien or Lunesta) ? Other prescription opioids KNOW YOUR OPTIONS Talk to your health care provider about ways to manage your pain that don?t involve prescription opioids. Some of these options may actually work better and have fewer risks and side effects. Options may include: ? Pain relievers such as acetaminophen, ibuprofen, and naproxen ? Some medication that are also used for depression or seizures ? Physical therapy and exercise ? Cognitive behavioral therapy, a psychological, goal-directed approach, in which patients learn how to modify physical, behavioral, and emotional triggers of pain and stress. IF YOU ARE PRESCRIBED OPIOIDS FOR PAIN: ? Never take opioids in greater amounts or more often than prescribed. ? Follow up with your primary health care provider. o Work together to create a plan on how to manage your pain. o Talk about ways to help manage your pain that don?t involve prescription opioids. o Talk about any and all concerns and side effects. ? Help prevent misuse and abuse o Never sell or share prescription opioids. o Never use another person?s prescription opioids. ? Store prescription opioids in a secure place and out of reach of others (this may include visitors, children, friends, and family). ? Safely dispose of unused prescription opioids: Find your community (more content not included)... Normal [facility] HEMATOLOGYOrdered By: SYSTEM SYSTEM on 01-02-2023 Basophils/100 WBC (Bld) 0.2 % Normal 0.0 - 2.0 % [facility] Basophils/Leukocytes Auto (Bld) [Pure # fraction] 0.0 E9/L Normal 0.0 - 0.2 E9/L [facility] Eosinophils/100 WBC (Bld) 0.1 % Normal 0.0 - 8.0 % [facility] Eosinophils/Leukocytes Auto (Bld) [Pure # fraction] 0.0 E9/L Normal 0.0 - 0.5 E9/L [facility] Lymphocytes/100 WBC (Bld) 8.0 % Low 14.0 - 50.0 % [facility] Lymphocytes/Leukocytes Auto (Bld) [Pure # fraction] 1.1 E9/L Normal 1.0 - 4.0 E9/L [facility] Monocytes/100 WBC (Bld) 2.9 % Low 4.0 - 14.0 % [facility] Monocytes/Leukocytes Auto (Bld) [Pure # fraction] 0.4 E9/L Normal 0.2 - 1.0 E9/L [facility] Neutrophils/100 WBC (Bld) 88.8 % High 36.0 - 75.0 % [facility] Neutrophils/Leukocytes Auto (Bld) [Pure # fraction] 12.0 E9/L High 2.0 - 7.5 E9/L [facility] HEMATOLOGYOrdered By: Porsha Recinos on 01-02-2023 Erythrocyte distribution width (RBC) [Ratio] 12.3 % Normal 10.9 - 14.2 % [facility] Hematocrit (Bld) [Volume fraction] 36.5 % Normal 34.0 - 46.0 % [facility] Hemoglobin (Bld) [Mass/Vol] 12.4 g/dL Normal 12.0 - 16.0 gm/dL [facility] MCH (RBC) [Entitic mass] 30.1 pg Normal 27.0 - 34.0 pg [facility] MCHC (RBC) [Mass/Vol] 33.9 g/dL Normal 31.4 - 36.0 gm/dL [facility] MCV (RBC) [Entitic vol] 88.8 fL Normal 80.0 - 100.0 fL [facility] Platelet mean volume (Bld) [Entitic vol] 7.4 fL Normal 6.4 - 10.8 fL [facility] Platelets (Bld) [#/Vol] 283.0 E9/L Normal 150.0 - 500.0 E9/L [facility] RBC (Bld) [#/Vol] 4.1 E12/L Low 4.3 - 5.9 E12/L [facility] WBC corrected for nucl RBC Auto (Bld) [#/Vol] 13.5 E9/L High 4.0 - 11.0 E9/L [facility] Hep Func Panelon 01-02-2023 Albumin [Mass/Vol] 4.1 g/dL Normal 3.3-5.0 [facility] Comment on above: Performed By: #### 2 [id number], [id number], 0020387, 5524637, 7562137, 4565387, [id number] ####[facility] [address] [place] [address] Albumin/Globulin (S) [Mass conc ratio] 1.2 Normal 1.1-2.2 [facility] Comment on above: Performed By: #### 2 521635, 74861588, 5272779, 3315059, 3769769, 9743473, 72624948 ####[facility] [address] [place] [address] ALP [Catalytic activity/Vol] 57 Int._Unit/L Normal 21-98 [facility] Comment on above: Performed By: #### 2 339949, 35461348, 7733908, 4291569, 3535676, 2496044, 20810484 ####[facility] [address] [place] [id number] ALT No additional P-5'-P [Catalytic activity/Vol] 13 Int._Unit/L Normal 6-46 [facility] Comment on above: Performed By: #### 2 327771, 84682391, 4580788, 0719205, 7375585, 7370258, [id number] ####[place] [address] [place] [id number] AST [Catalytic activity/Vol] 26 Int._Unit/L Normal 5-43 [facility] Comment on above: Performed By: #### 2 769358, 37320467, 7758329, 1885180, 7802279, 8908707, 57793052 ####[place] [id number] Bilirubin [Mass/Vol] 1.0 mg/dL Normal 0.0-1.1 [facility] Comment on above: Performed By: #### 2 328038, 67853917, 6108983, 5345572, 1814832, 1794524, 93313167 ####[place] [address] Bilirubin.direct [Mass/Vol] 0.2 mg/dL Normal 0.1-0.4 [facility] Comment on above: Performed By: #### 2 797803, 46247619, 5195590, 0217193, 1707152, 2405741, 01960068 ####[place] [address] [place] [address] Bilirubin.indirect [Mass or moles/Vol] 0.8 mg/dL Normal 0.1-0.9 [facility] Comment on above: Performed By: #### 2 507837, 11038462, 9046548, 8345460, 6254131, 4120890, 28870929 ####[facility] [address] [place] [address] Globulin (S) [Mass/Vol] 3.5 g/dL Normal 1.4-4.0 [facility] Comment on above: Performed By: #### 2 667734, 54706651, 7750372, 6137126, 9540996, 8751634, 39244634 ####[facility] [address] [place] [address] Protein [Mass/Vol] 7.6 g/dL Normal 6.0-7.8 [facility] Comment on above: Performed By: #### 2 179334, 67878495, 1653082, 7701288, 1782190, 9668598, 56276853 ####[facility] [address] [place] [address] Lipase Levelon 01-02-2023 Lipase [Catalytic activity/Vol] 79 U/L High 13-58 [facility] Comment on above: Performed By: #### 2 840204, 58509168, 1870999, 0254172, 4858795, 1984372, 06587754 ####[facility] [address] [place] [address] PT & PTTon 01-02-2023 aPTT Coag (PPP) [Time] 29.4 second(s) Normal 25.1-36.5 [facility] Comment on above: Result Comment: Para meter 15 days - 4 weeks 1 - 5 months 6 - 11 months 1 - 5 years 6 - 10 years 11 - 17 years PTT Mean: 35.4 (27.6-45.6) Mean: 33.5 (24.8-40.7) Mean: 32.4 (25.1-40.7) Mean: 31.6 (24.0-39.2) Mean: 31.6 (26.9-38.7) Mean: 31.0 (24.6-38.4) Pediatric Reference ranges were obtained from a study by Kyle Siddiqui et al. prepared from 1437 samples obtained at 7 different centers using the same coagulation reagent and instrumentation as [facility]. Currently there are no coagulation studies available worldwide for children to 14 days, and no normal ranges. Heparin therapeutic range (represented by Anti-Factor Xa activity of 0.2 - 0.4 U/mL) corresponds to PTT of 56.6 - 109.0 sec. Performed By: #### 2 356396, 28130637, 9843737, 0720275, 6138249, 4595793, 68738639 ####[facility] [address] [place] [address] INR Coag (PPP) [Relative time] 1.1 {INR} Invalid Interpretation Code [facility] Comment on above: Result Comment: INR results are specifically intended to assess patients stabilized on long-term Anticoagulation therapy suggested INR?s ?Less Intensive Anticoagulation? 2.0 ? 3.0 Conventional Range 3.0 ? 4.5 Performed By: #### 2 910834, 14874911, 9123948, 2964280, 8375937, 3598323, 79175149 ####[facility] [address] [place] [address] PT Coag (PPP) [Time] 12.1 second(s) Normal 9.4-12.5 [facility] Comment on above: Result Comment: 15 d ays - 4 weeks 1 - 5 months 6 -11 months 1 ? 5 years 6 ? 10 years 11 -17 years Mean: 11.2 (9.5 ? 12.6) Mean: 11.0 (9.7 ? 12.8) Mean: 11.0 (9.8 ? 13.0) Mean: 11.3 (9.9 ? 13.4) Mean: 11.7 (10.0 ? 14.6) Mean: 11.8 (10.0 - 14.1) Pediatric Reference ranges were obtained from a study by Kyle Siddiqui et al. prepared from 1437 samples obtained at 7 different centers using the same coagulation reagent and instrumentation as [facility]. Currently there are no coagulation studies available worldwide for children to 14 days, and no normal ranges. Performed By: #### 2 703350, 59428937, 2474397, 9008615, 2732520, 0389810, 11740049 ####[facility] [address] [place] [address] With [facility] 2022 Bacteria LM Ql (Urine sed) TRACE Normal Trace [facility] Comment on above: Performed By: #### 1 [id number] ####[facility] [address] [place] [address] Bilirubin Ql (U) Negative Normal Negative [facility] Comment on above: Performed By: #### 1 0179304 ####[facility] [address] [place] [address] Clarity (U) SL CLOUDY Abnormal Clear [facility] Comment on above: Performed By: #### 1 [id number] ####[facility] [address] [place] [address] Color (U) YELLOW Normal Yellow [facility] Comment on above: Performed By: #### 1 1855137 ####[facility] [address] [place] [address] Epithelial cells.squamous LM.HPF (Urine sed) [#/Area] 9-10 Normal 0-2 [facility] Comment on above: Performed By: #### 1 6740134 ####[facility] [address] [place] [address] Glucose Test strip (U) [Mass/Vol] Negative Normal Negative [facility] Comment on above: Performed By: #### 1 2489151 ####[facility] [address] [place] [address] Hemoglobin Ql (U) Negative Normal Negative [facility] Comment on above: Performed By: #### 1 7136904 ####[facility] [address] [place] [address] Ketones (U) [Mass/Vol] 2+ Abnormal Negative Fi [facility] Comment on above: Performed By: #### 1 [id number] ####[facility] [address] [place] [address] [place].plasma/[place] .RBC (Bld) [Mass ratio] 0-3 Normal 0-3 [facility] Comment on above: Performed By: #### 1 [id number] ####[facility] [address] [place] [address] Mucus Ql (Urine sed) 2+ Normal Fish [facility] Comment on above: Performed By: #### 1 [id number] ####[facility] [address] [place] [address] Nitrite Ql (U) Negative Normal Negative [facility] Comment on above: Performed By: #### 1 [id number] ####[address] [address] pH (U) 8.5 [pH] Invalid Interpretation Code 5.0-9.0 [facility] Comment on above: Performed By: #### 1 [id number] ####[address] [address] Protein (U) [Mass/Vol] Negative Normal Negative [facility] Comment on above: Performed By: #### 1 [id number] ####[address] [address] Specific gravity (U) [Rel density] 1.015 Invalid Interpretation Code 1.005-1.030 [facility] Comment on above: Performed By: #### 1 [id number] ####[address] [address] [place] LM Ql (Urine sed) Present Normal [facility] Comment on above: Performed By: #### 1 [id number] ####[address] [address] Type of Urine collection method Clean Catch Normal [facility] Comment on above: Performed By: #### 1 [id number] ####[address] [address] Urobilinogen Qn (U) 0.2 {Hima'U}/dL Normal 0.0-1.0 [facility] Comment on above: Performed By: #### 1 [id number] ####[facility] [address] [place] [address] WBC Auto Ql (U) Negative Normal Negative [facility] Comment on above: Performed By: #### 1 [id number] ####[facility] [address] [place] [address] WBC LM.HPF (Urine sed) [#/Area] 0-5 Normal 0-5 [facility] Comment on above: Performed By: #### 1 [id number] ####[facility] [address] [place] [address] URINALYSISOrdered By: Cata Wang on 01-02-2023 Bacteria LM Ql (Urine sed) Trace /HPF Normal Trace/HPF [facility] UA Auto SS Bilirubin Ql (U) Negative (01/02/23 10:40 AM) Normal Negative [facility] UA Auto SS Clarity (U) Slightly Cloudy *ABN* (01/02/23 10:40 AM) Invalid Interpretation Code Clear [facility] UA Auto SS Color (U) Yellow (01/02/23 10:40 AM) Normal Yellow [facility] UA Auto SS Epithelial cells.squamous LM.HPF (Urine sed) [#/Area] 9-10 /HPF Normal 0-2/HPF [facility] UA Aut o SS Glucose Test strip (U) [Mass/Vol] Negative (01/02/23 10:40 AM) Normal Negative [facility] UA Auto SS Hemoglobin Ql (U) Negative (01/02/23 10:40 AM) Normal Negative [facility] UA Auto SS Ketones (U) [Mass/Vol] 2+ *ABN* (01/02/23 10:40 AM) Invalid Interpretation Code Negative [facility] UA Auto SS [place].plasma/[place] .RBC (Bld) [Mass ratio] 0-3 /HPF Normal 0-3/HPF [facility] UA Auto SS Mucus Ql (Urine sed) 2+ (01/02/23 10:40 AM) Normal [facility] UA Auto SS Nitrite Ql (U) Negative (01/02/23 10:40 AM) Normal Negative [facility] UA Auto SS pH (U) 8.5 *NA* (01/02/23 10:40 AM) Invalid Interpretation Code 5.0 - 9.0 [facility] UA Auto SS Protein (U) [Mass/Vol] Negative (01/02/23 10:40 AM) Normal Negative [facility] UA Auto SS Specific gravity (U) [Rel density] 1.015 *NA* (01/02/23 10:40 AM) Invalid Interpretation Code 1.005 - 1.030 [facility] UA Auto SS [place] LM Ql (Urine sed) Present (01/02/23 10:40 AM) Normal [facility] UA Auto SS UA Spec Desc Clean Catch (01/02/23 10:40 AM) Normal [facility] UA Auto SS Urobilinogen Qn (U) 0.4668775 {Hima'U}/dL Normal 0.0 - 1.0 EU/dL [facility] UA Auto SS WBC Auto Ql (U) Negative (01/02/23 10:40 AM) Normal Negative [facility] UA Auto SS WBC LM.HPF (Urine sed) [#/Area] 0-5 /HPF Normal 0-5/HPF [facility] UA Auto SS US Gallbladderon 01-02-2023 US Gallbladder Exam Date/Time: 01/02/2023 11:36 EST Reason for Exam: Abdominal pain Report IMPRESSION: Unremarkable ultrasound of the right upper quadrant. EXAMINATION: US Gallbladder HISTORY: Abdominal pain. TECHNIQUE: Sonography of the right upper quadrant was performed. Images were obtained and stored in a permanent archive.\X09\ COMPARISON: CT 06/21/2022. RESULT: Pancreas: Normal sonographic appearance of the visualized portions. Liver: Normal echotexture, echogenicity, surface contour. No focal lesion. Gallbladder: Normal caliber without cholelithiasis, sludge, wall thickening, pericholecystic fluid. Biliary Ducts: No intrahepatic or extrahepatic bile duct dilation. CBD measures 0.3 cm. Right Kidney: Imaged portions unremarkable. Ascites: None. Ordering Provider: Amado Rodriguez FINAL REPORT Dictated: 01/02/2023 11:52 am Jos Lozano MD Signed (Electronic Signature): 01/02/2023 11:52 am Signed by: Jos Lozano MD Transcribed by: JUAN FRANCISCO Technologist: RAMÓN [facility] US 1st Trimesteron 01-02-2023 US 1st Trimester Exam Date/Time: 01/02/2023 11:36 EST Reason for Exam: Abdominal pain;Other (please specify) Report IMPRESSION: EARLY SINGLE LIVE INTRAUTERINE GESTATION. Composite Ultrasound Age: 6 weeks, 2 days CLINICAL HISTORY: Abdominal pain. LMP: 11/20/2022 MARIO from LMP: 08/27/2023 Gestational Age by LMP: 6 weeks, 1 days MARIO from average ultrasound age: 0708/26/2023 Composite Ultrasound Age: 6 weeks, 2 days COMPARISON: None for this gestation. COMMENT: Transabdominal and transvaginal images were obtained. The uterus measurements and an estimated volume are: Uterus Length: 8.2 cm Uterus Width: 6.1 cm Uterus Height: 5.0 cm Uterus Volume: 129.6 cm3 The uterus is otherwise unremarkable. A single gestational sac is present. Yolk sac and small pole within the gestational sac. The crown-rump length and the corresponding gestational age +/- 1 week are: Dumb Hundred Rump Length: 0.5 cm Composite Ultrasound Age: 6 weeks, 2 days MARIO from average ultrasound age: 0708/26/2023 There is no evidence of subchorionic hemorrhage. The heart rate is measured at 117 bpm. The right ovary measurements and estimated volume are: Right Ovary Length: 2.5 cm Right Ovary Width: 2.3 cm Right Ovary Height: 1.9 cm Right Ovary Volume: 5.6 cm3 The left ovary measurements and estimated volume are: Left Ovary Length: 3.3 cm Left Ovary Width: 2.5 cm Report Left Ovary Height: 1.8 cm Left Ovary Volume: 7.7 cm3 Probable corpus luteum on the right, ovaries otherwise unremarkable. There is no free fluid in the cul-de-sac. Ordering Provider: Amado Rodriguez FINAL REPORT Dictated: 01/02/2023 11:47 am Jos Lozano MD Signed (Electronic Signature): 01/02/2023 11:47 am Signed by: Jos Lozano MD Transcribed by: JUAN FRANCISCO Technologist: RAMÓN Technical Comments LMP : 11/20/22 Regular History 3 Para 2 SAB 1 [facility] US Transvaginalon 01-02-2023 US Transvaginal Exam Date/Time: 01/02/2023 11:37 EST Reason for Exam: pain Report Refer to concurrent ultrasound first trimester dictation. Ordering Provider: Amado Rodriguez FINAL REPORT Dictated: 01/02/2023 11:48 am Jos Lozano MD Signed (Electronic Signature): 01/02/2023 11:48 am Signed by: Jos Lozano MD Transcribed by: JUAN FRANCISCO Technologist: RAMÓN [facility] eGFRon 01-02-2023 GFR/1.73 sq M.predicted among non-blacks MDRD (S/P/Bld) [Vol rate/Area] 133 mL/min/1.73 m2 Normal >=59 [facility] Comment on above: Order Comment: Order added by Discern Expert. 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 Kidney failure is indicated at less than 15 mL/min/1.73m2. Performed By: #### 2 [id number], [id number], 8390855, 5678436, 4909871, 6520907, 57844495 ####[facility] [address] [place] [address] Coding Summary.on 06-23-2022 Coding Summary. CD:[id number] Ww+PGhlYWQ+WF8ZRSCnO 51thVOpwF8bR5HAPGtPJ ywgQVBQTElOSyIgbmFtZ I0scNViEFBv IC8+GO6dZXEhRnokrWXg x5F7wTT7N04xvp0rURbp rMD8XWJrYeYqwcyef6wj dMt6EBpkCalyHnPz ZDWtfQ37RFR9nG80Sb57 kVDrtZOub0twjAw3CiEh XLRiKFV5zGzhFIzul0Mm FONoH56mlZObt2Z7 IGNvbGxhcHNlOyBlbXB0 cG5rTGazjmelu5ngpdrm Eqi3vz02bFIiy5I6aFJ9 B6GkveH1YQSjiRSi ByaztHTKyR4iyblja4jt iwioGqSgVMJrSHq7HIm0 QXEceCgiKjOdXB86PLB6 CYMrouVtL2YyEZLw pIgvFzR7e6M0Qg6DR9JQ LhweJ7ZLAAZDUKykwQF+ TB90do03C9YtDwyiUwh7 STDxRES0cXI3qS5w RDUfIWmuc7X1zQA1C8Qd dtMxnn2nk1mwKQGgBEig Q33uqGWla4M8MLBllAX4 IKDgmEgrBeNljK84 Oyc+LZHtsEcsj8QrTdtv f9xgm5glyQm1CxzcXDYg fgFrzZpdQOJ2u5NpEv4w EMMriWX8gUP9lM3q XhJiJoM7MLxbA943SaOa bGEyYjfsF27hR0MdlHQ+ SIXpQsh8XMDezVykXP6h W6GyEYKfryitqAEn xTdfXD9lYEUaraghCYNb lC9pSDFpS9u0AjXpLyK1 RSvsR4VnWAZuncleJk99 sE8rZuHjWwC2ZNuh Q8BfxxO0EZNjpAGaHEfm RUA6U82xl7J6GADuKYTf MHB6hCU7gB6wmEsfvmgj bGVmdDsgdmVydGlj VFbsJTtlX524ABYiaJeg PkNvZGluZyBEYXRlOiAg MDUvMDEvMjAyMzwvdGQ+ UZTpHOS7mDeqOQZz yEWaLEkoSh8xwLslfXey NR3fTHXizpdxPGOdcU1a XNGyqCOwdMdwDQ0mQRKf srnva954WdZlYXI0 SWGlyBWsV1WarL6cSuAa BCKrVKUuW5FenKNkZSjf X968XSvgOpH8KAGkbdLg C8WoDQUjlAbuGjQ9 b9P4Rm6Dl6EofybbY7Pr hEYdNnRkJkncBTp3G7Mi PjwvdHI+WS43PLMlUQ67 LIv2YWX1bBeyOAps MFCbV9NxlV6oMzNwGUAd ZGRkOyc+PHRhYmxlIHdp ZHRoPScxMDAlJyBzdHls IX6bZy0aYVOoIRTm zYckvIRgYgNpf4exDYXs LDctBA2odNcuK4OezKG2 VKYhl5a1Bn55R46cW5Hy dXA+IRNhbPC6tFY6 oC9xFiHqLmM4XMtoM904 UvBzkPUoXapgd8qvd1ny yUa5ZtA0KYHtnoQhhArn NEZ1v7YgHi76Q12e IHdpZHRoPSIxNSUiIHZh jEigry5zeW1bMv9+PGNv sPE1oBA2bC2pMtCfKoY6 UHqpV286ZwQbhYIv Mvitj1dpj0ptpEz8LbDd HSJjafOwgUraZUU8l1Cu Bo34O7OrhZtnv0AlJny1 gb01eXThe1R7xBV1 D6HwNQTugmolxKJdpPhp BZ2uGRSpllisSQWtcL6w YCBtZ7o9XcIjHhE0CDci P3EuxbQ8CWLuuMGd UMBngFXSpF7werxis6av ckoyJlClDAJqTQx5VIi5 PCBlcBshKeHsMMW5ZbU3 ZPO4sHHtmK6uoQgc islwkN5nLej+TLY9zJCe oPMMUK4yBinsfJT+PHRk COS8mGerZDbpJREwlB0x JYKnZ7l4GcJxFiM3 RNftA1PilfL0ODGpbWMl EBZujERHfC3phriky5wi mzruJzJzDSOmWKv3QTi9 LWFsaWduOiBsZWZ0 KpW7VJJ8uDJtwP7meQlj wbfigX4nNpp+QmlydGgg RSO8NHi0J0HaDui2LWAz vGyeGG8znVPjGCzx No5ezCapjErkRN0fEWWr cvwnf178FxEmp9vpHJEm cOVvOKrpAGG1R65wf9W4 TABuOPQaJTD6mEL6 tQ8diVentuemzVTzvRio ifQcbMgiAMbmRRffG497 IKMweVoqKrVsEUa7R2Wz Ccj8AXAanTvzNJ2h iSJoLMkjRx5nzVbpvRoa PV1uAHUkkmuht621ZdCl m2vnDGPjrJEoFTrrQED1 W09rs5P7TPKyQEMm XGJ6uJM6vU5lkHnsdgpd bGVmdDsgdmVydGljYWwt RLbjQ374YNIlmZiwOeKs xUm7U0WlKte2JFSw cKmaHP3blLJvJWviDs7o nEgyvFqcUE5dLRLvpdms s937SlYlk2rrGHLvaNKc ZNegOBO5V25nf2Y5 YBLhCWDwFNV9qSX7pJ8s bGlnbjogbGVmdDsgdmVy sJwrTDwkVUvcM587XLIb cDsnPlBhdGllbnQg BSfdXNz9B2QdInaciEU+ ZZ93CKMbNG98lEHmcKRp l5fuqJl4ZeRsKAMgDJF7 tUqgPFfud5JkIENa X11ibDBuh4R8WBDgeKal kBZbRtMfyGS8mC4kGDcb usqob4svogakOqpuk4mk wq68vZ61I26sSDkw ZHRoPSIzMCUiIHZhbGln wa3adE4uWv6+PGNvbCB3 cML9qO3uIMGhZdQ7DWsn W414JhGcgIFtOdtv y3aun6kzuMo7FrT1KKCe zqPhyWvuKFY4k6AlWs19 M54mLXdgZPIvNLGpWMCy CIJxaQuzce8qsK9v Ii8+YJKfkGP1jKX1jL9w KxKxIvJ9XBhvS200BnCg cCHfDhcqJ09jI9EhyWM+ TWWxBnd4CIDayKmz NS2jaSEmNRkoGo2uCQF7 NkLpDsZjMTtmB8VzDOZu iwjlfyqatYT7FUEmADUf vZ62Mu8bgHoiTLXl aZGRfL5pwswlk6znxsxz NjGmWQZoRFq6BWp4ALEd oVqvTuIeRWA7OjM7DWC5 uHOajQ1hmWpsizdt aS0xK4KzXWEggedsXc64 eA7gJeRgIpB0EWfeRia+ O1CKHOECKYHXBLQBBHUB QH5XLnF7I3KjVyp0 DCQmeHctON0maWFqCKvx Ll1krPkxiBaeAC0vCKDc nahyVXIrbR5uWBHucSVv hOqwNE0qGDAyajnn t124LbReMNB6ZKUotDPn S0XelI0eOfNsIWViMGAe N3ZmtOIdWZqtW298FStr YiH1GQYfnpVnW9Rv MIEizPxwCcM5n4T1Ix8k Wz3iQZ2eBLt6KG87IG63 aEEta4S6tCH4B7KdUEOs tlaaknxhqDK6YYJt LWIecH08kZNcXExdEz5t a9M1i817WDDtVPCxtK93 Sn0wfTeuAICpmAEDoY7z rxcqy5fkjkjgAbSi SIZtDEk4LUl5EPArzRrf GoVcHVA3IsL4VLK2qEYs wY9vpGgptfutxM3uCbk+ FpYfUNPvfuN5O3Vp Lrz2KVAstUesGV1voPAy RZjlHl2zpVooiQnxAB6t ZLSpkenbNXZnjN7kDRXz mIKcxZjpDZ1eNHYo wosbj267UmJjPPW6VVSs kDExJ9KhrL1yAuQlEAXf ZLJqP6ClbXJzHPidE764 RFeqJfJ9UKNddySa D1HvCPDplJbaArX2x4P2 Me5OKH5loZF4H8SdEqx6 INSovZinDR3doJBgJPfl Cy5qiGbezMulCO4m VRBrywulFIEjfU4cYJDd qQFfaJunBH9xGYHxriue r299CaRvRZK4WKNxaMDi B9ZonG8nWwHwDYVq QPJrX5ZgwWGcQPstV742 EMlnVeQ0VKFflqSkJ6Sh KOQmdYahGtV5u0T1Wb7T pPCzJ7PiA6a7E8Zy PjwvdHI+NL65FTEcJV58 aUVbvZBkp7chyEn2RvYi HLDyYGA2fIjeCXnga4Yu PXFoQ15jvBKef4I2 IGNvbGxhcHNlOyBlbXB0 hD2qAZowaklmw1smmdxk Uydvx2cibp45rC06P64c IHdpZHRoPSIzMCUi UWMkgSizey4puX3yBk1+ EAJdqHT9cJN8xJ1jLwJw YtJ6HYsaK410BzHyiVXf Yrvkx9usy9uhjEo9 IjIwJSIgdmFsaWduPSJ0 b9UaEd94D67iXHwpBFKm OQSjVPQgTMPuaRodnw5s qA0wPs6+HK1ry5tz hb53iU97qYM+PHRkIHN0 bBfjZFguKHJbcA7wRTwq VpL6RPAzOxTeqZ18xNNu YYofLy6caSbvlDmd HL8yAZAfhrkpv553RhRw j0iqLSXsaWKmYEnfTCX0 M30ff4T4VRTsNJZuETA4 uCO6bF9hhBesriuo bGVmdDsgdmVydGljYWwt KDibU295OVTkmSldZbKv iLDlJ5rsneTKHO4nEvxx dGQ+KEKdQQX9mHeb SWdtSIOekK2cFGEjA0f8 TeXtUmU8IVcuV9SquiC1 VBXccTJkQMXxrLLMoE0a jbife8hufuvaLwTp BINtROx0RGk0POZavAcm VcMtHTF4SdU9MTB4qEHs yA7ioIbaakeimX5nBtr+ RklOOjwvdGQ+PHRk XJF6pKgfIWesMSUuoL8i ZWNeP6o9KgMjGwD6TPmm C2UotoQ0ZKFepYToKPCc qOPMsW9lddhhu2ph fuhzIhViWRRbCGa0FBh0 ICQmkDqqXxVoBKS2SlS5 NJB9mADgaQ3paYtzxsvn bR7nScb+TVJOOjwv dGQ+YZZkKHS7gEghYGvp HVLaxE4fBXDvT5a1LaTq CeQ1ITgqK6OnpnF1UKAb sJRqDOQweALUvI6l oknod9uxcdocMeOwNUHq LGg9ITe3QHBdeCqpFzTd XPV3TfI4RDS9xYEigM1o zMbmtzlcoK9hDky+ BFD5GKF4UA18TF07X7Nr PjwvdGFibGU+PHRhYmxl IHdpZHRoPScxMDAlJyBz hVjhXW0vEf9cLVMt LWNvbGxh (more content not included)... Normal [facility] Auto Diffon 06-21-2022 Basophils/100 WBC (Bld) 0.7 % Normal 0.0-2.0 [facility] Comment on above: Order Comment: Order Added by Discern Expert. Performed By: #### 2 540873, 6970444, 9005993, 9450042, 87880731, 60174858, 0886174 ####[facility] [address] [place] [address] Basophils/Leukocytes Auto (Bld) [Pure # fraction] 0.2 E9/L Normal 0.0-0.2 [facility] Comment on above: Order Comment: Order Added by Discern Expert. Performed By: #### 2 263341, 6510844, 1888014, 6000634, 23598662, 66884669, 9562269 ####[facility] [address] [place] [address] Eosinophils/100 WBC (Bld) 0.9 % Normal 0.0-8.0 [facility] Comment on above: Order Comment: Order Added by Discern Expert. Performed By: #### 2 109611, 8084779, 3323515, 7520406, 66563245, 02605126, 0571507 ####[address] [address] Eosinophils/Leukocytes Auto (Bld) [Pure # fraction] 0.2 E9/L Normal 0.0-0.5 [facility] Comment on above: Order Comment: Order Added by Discern Expert. Performed By: #### 2 202778, 0157421, 0795772, 0897179, 69011113, 72724853, 6129675 ####[address] [address] Lymphocytes/100 WBC (Bld) 19.5 % Normal 14.0-50.0 [facility] Comment on above: Order Comment: Order Added by Mendy Expert. Performed By: #### 2 483904, 1583659, 4899060, 8958523, 46516911, 78908923, 8791311 ####[address] [address] Lymphocytes/Leukocytes Auto (Bld) [Pure # fraction] 4.2 E9/L High 1.0-4.0 [facility] Comment on above: Order Comment: Order Added by Mendy Expert. Performed By: #### 2 437051, 8119309, 3916932, 4810898, 57207375, 13009335, 1669252 ####[address] [place] [address] Monocytes/100 WBC (Bld) 4.9 % Normal 4.0-14.0 [facility] Comment on above: Order Comment: Order Added by Mendy Expert. Performed By: #### 2 311238, 9195617, 8275599, 2307732, 84284232, 48259817, 6432872 ####[address] [address] Monocytes/Leukocytes Auto (Bld) [Pure # fraction] 1.1 E9/L High 0.2-1.0 [facility] Comment on above: Order Comment: Order Added by Discern Expert. Performed By: #### 2 993920, 4793705, 1441853, 9770098, 60026362, 21959513, 2391449 ####[facility] [address] [place] [address] Neutrophils/100 WBC (Bld) 74.0 % Normal 36.0-75.0 [facility] Comment on above: Order Comment: Order Added by Discern Expert. Performed By: #### 2 715952, 4092310, 7804167, 1777061, 26085314, 53748768, 5899179 ####[address] [place] [address] Neutrophils/Leukocytes Auto (Bld) [Pure # fraction] 15.9 E9/L High 2.0-7.5 [facility] Comment on above: Order Comment: Order Added by Discern Expert. Performed By: #### 2 402770, 3829283, 9441341, 1801973, 74758387, 62032975, 9175146 ####[facility] [address] [place] [address] B hCG Qualon 06-21-2022 Beta hCG Ql Negative Normal [facility] Comment on above: Performed By: #### 2 080251, 1779438, 3699642, 3517851, 17213875, 21798721, 8701124 ####[facility] [address] [place] [address] BMPon 06-21-2022 Creatinine [Mass/Vol] 0.7 mg/dL Normal 0.5-1.3 [facility] Comment on above: Performed By: #### 2 840156, 4661047, 4136714, 6625122, 09475477, 29744592, 7593930 ####[facility] [address] [place] [address] Urea nitrogen [Mass/Vol] 12 mg/dL Normal 5-21 [facility] Comment on above: Performed By: #### 2 961291, 5100630, 6380816, 9400116, 85790601, 94881577, 4091207 ####[facility] [address] [address] Urea nitrogen/Creatinine [Mass ratio] 17 No Units Normal 10-20 [facility] Comment on above: Performed By: #### 2 980732, 1152750, 5198224, 1593211, 68559924, 24030591, 8062652 ####[facility] [address] [address] Anion gap [Moles/Vol] 12 mmol/L Normal 6-16 [facility] Comment on above: Performed By: #### 2 652236, 6402395, 9172787, 8732247, 85382077, 51347093, 9696023 ####[facility] [address] [place] [address] Calcium [Mass/Vol] 8.8 mg/dL Low 8.9-11.1 [facility] Comment on above: Performed By: #### 2 883651, 3419754, 5533823, 0724224, 94547318, 63735205, 3104686 ####[facility] [address] [place] [address] Chloride [Moles/Vol] 105 mmol/L Normal 101-111 [facility] Comment on above: Performed By: #### 2 218507, 9601242, 0714220, 7312480, 59228060, 65297760, 0676716 ####[facility] [address] [address] CO2 [Moles/Vol] 23 mmol/L Normal 21-31 [facility] Comment on above: Performed By: #### 2 410745, 4740941, 3797983, 0410408, 30249820, 34138037, 9801020 ####[facility] [address] [place] [address] Glucose [Mass/Vol] 104 mg/dL Normal 55-199 [facility] Comment on above: Result Comment: If t his glucose result represents a fasting glucose, interpretation should refer to the following reference range: 55-99 mg/dL Performed By: #### 2 636340, 8666256, 1760201, 7358838, 73075129, 56382508, 6486225 ####[facility] [address] [place] [address] Potassium [Moles/Vol] 3.4 mmol/L Low 3.5-5.3 [facility] Comment on above: Performed By: #### 2 314021, 0451324, 7361324, 6879219, 40656670, 82628950, 2618894 ####[facility] [address] [place] [address] Sodium [Moles/Vol] 137 mmol/L Normal 135-145 [facility] Comment on above: Performed By: #### 2 063546, 0423759, 9717315, 6637169, 48524481, 94268016, 4626734 ####[facility] [address] [place] [address] CBC w/ Auto Diffon 3 Erythrocyte distribution width (RBC) [Ratio] 12.3 % Normal 10.9-14.2 [facility] Comment on above: Performed By: #### 2 046502, 7267990, 2168252, 9927310, 00566640, 22645896, 3771448 ####[facility] [address] [place] [address] Hematocrit (Bld) [Volume fraction] 41.0 % Normal 34.0-46.0 [facility] Comment on above: Performed By: #### 2 746426, 2462725, 7007851, 4873712, 21693981, 01093770, 8232813 ####[facility] [address] [place] [address] Hemoglobin (Bld) [Mass/Vol] 13.4 g/dL Normal 12.0-16.0 [facility] Comment on above: Performed By: #### 2 818262, 6232832, 8745236, 5525663, 67057000, 76463994, 2516100 ####[facility] [address] [place] [address] MCH (RBC) [Entitic mass] 28.2 pg Normal 27.0-34.0 [facility] Comment on above: Performed By: #### 2 688520, 5994805, 4245584, 7836698, 77765968, 45513797, 1826802 ####[address] [address] MCHC (RBC) [Mass/Vol] 32.7 g/dL Normal 31.4-36.0 [facility] Comment on above: Performed By: #### 2 120899, 7871138, 3255369, 5853647, 21322959, 75720933, 5024477 ####[address] [address] MCV (RBC) [Entitic vol] 86.3 fL Normal 80.0-100.0 [facility] Comment on above: Performed By: #### 2 393843, 2043305, 7183042, 2194367, 96505294, 55655763, 1958662 ####[address] [address] Platelet mean volume (Bld) [Entitic vol] 7.2 fL Normal 6.4-10.8 [facility] Comment on above: Performed By: #### 2 154021, 6037787, 5099692, 4561069, 60910020, 43363805, 6149492 ####[address] [address] Platelets (Bld) [#/Vol] 414.0 E9/L Normal 150.0-500.0 [facility] Comment on above: Performed By: #### 2 752788, 4921514, 0428840, 1873871, 27773780, 25551852, 3193640 ####[address] [address] RBC (Bld) [#/Vol] 4.8 E12/L Normal 4.3-5.9 [facility] Comment on above: Performed By: #### 2 524808, 6433204, 0937470, 6085395, 04849965, 35677529, 2212684 ####[facility] [address] [place] [address] WBC corrected for nucl RBC Auto (Bld) [#/Vol] 21.6 E9/L High 4.0-11.0 [facility] Comment on above: Result Comment: Slid e reviewed by AD. Performed By: #### 2 671174, 1828873, 5061543, 5423559, 99377616, 83964546, 8481572 ####[facility] [address] [place] [address] CT Abdomen/Pelvis w/ Contras ton 06-21-2022 CT Abdomen/Pelvis w/ Contrast Exam Date/Time: 06/21/2022 00:53 EDT Reason for Exam: Abdominal pain, acute, nonlocalized;Other (please specify) Report IMPRESSION: NO ACUTE OR SIGNIFICANT INTRA-ABDOMINAL PROCESS IDENTIFIED. EXAM: CT Abdomen/Pelvis w/ Contrast DATE: 06/21/2022 CLINICAL HISTORY: Abdominal pain, acute, nonlocalized. COMPARISON: None available. TECHNIQUE: Spiral imaging was obtained of the abdomen and pelvis after the uneventful infusion of approximately 100 mL of Isovue [address] scans at this facility use dose modulation, iterative reconstruction, and/or weight based dosing when appropriate to reduce radiation dose to as low as reasonably achievable. FINDINGS: There is no abnormal bowel dilatation, inflammatory changes, ascites, lymphadenopathy, hernias, or other findings of concern identified. A normal-appearing appendix is tentatively identified. There are no secondary findings to suggest acute appendicitis identified. The liver, gallbladder, spleen, pancreas, adrenal glands, kidneys, great vessels, unopacified bowel loops, uterus, adnexa, urinary bladder, the visualized lung bases and musculoskeletal structures are unremarkable. Ordering Provider: Ritesh Pascal FINAL REPORT Dictated: 06/21/2022 8:59 am Brett Colon MD Signed (Electronic Signature): 06/21/2022 8:59 am Signed by: Brett Colon MD Transcribed by: JUAN FRANCISCO Technologist: JUAN FRANCISCOR Technical Comments GFR (mL/min/1/73m2) age Contrast: Isovue 300 Contrast amount in ml's: 100 Normal [facility] Consent for Treatmenton 05-25 Consent for Treatment [id number] #1.00CD:127 Normal [facility] Discharge Instructionson Discharge Instructions [id number] 0#1.00CD:127 Normal [facility] ED Clinical Summaryon 2022 ED Clinical Summary [place] [id number] ED Clinical Summary [facility]: [facility] Age: 27 Years : 1995 Sex: Female Language: Argentine PCP: Keith GARCIA DO Marital Status: Single Visit Id: Visit Reason: Throat pain - Adult; Vomiting; Diarrhea; Abdominal pain; PAIN RIGHT LOWER ABD Speciality: Acuity: 3 Enc Type: Emergency Med Service: Emergency Arrival: 06/20/2022 23:19:15 Discharge: 06/21/2022 05:06:43 LOS: 000 05:47 Checkin: 06/20/2022 23:19:15 Checkout: 06/21/2022 05:06:43 Dispo Type: Home (Routine DC) EVENTS: Event Name Event Status Request Date/Time Start Date/Time Complete Date/Time Arrive Complete 06/20/2022 23:19:15 06/20/2022 23:19:15 06/20/2022 23:19:15 Document Home Meds Request 06/20/2022 23:19:15 Triage Complete 06/20/2022 23:19:15 06/20/2022 23:30:00 06/20/2022 23:30:00 Bed Assign Complete 06/20/2022 23:24:24 06/20/2022 23:24:24 06/20/2022 23:24:24 Dr Exam Complete 06/20/2022 23:24:24 06/20/2022 23:27:57 06/20/2022 23:27:57 RN Exam Complete 06/20/2022 23:24:24 06/20/2022 23:36:50 06/20/2022 23:36:50 Registration Complete 06/20/2022 23:27:57 06/20/2022 23:29:02 06/20/2022 23:29:02 Reg Complete Request 06/20/2022 23:29:02 Reg Bed Request Complete 06/20/2022 23:29:02 06/20/2022 23:29:02 06/20/2022 23:29:02 Meds Admin Complete 06/20/2022 23:38:59 06/20/2022 23:46:09 Pending Labs Complete 06/20/2022 23:38:59 06/21/2022 02:37:36 Lab Complete 06/20/2022 23:38:59 06/21/2022 02:37:36 Urine Collect Complete 06/20/2022 23:38:59 06/21/2022 02:37:36 Patient Care Complete 06/20/2022 23:38:59 06/20/2022 23:46:28 Pending Labs Complete 06/20/2022 23:45:53 06/20/2022 23:45:53 06/21/2022 00:09:23 Lab Complete 06/20/2022 23:45:53 06/20/2022 23:45:53 06/21/2022 00:09:23 Pending Labs Complete 06/21/2022 00:12:00 06/21/2022 00:12:00 06/21/2022 00:12:09 Lab Complete 06/21/2022 00:12:00 06/21/2022 00:12:00 06/21/2022 00:12:09 Meds Admin Complete 06/21/2022 00:14:41 06/21/2022 00:28:27 CT Complete 06/21/2022 00:14:41 06/21/2022 00:19:38 06/21/2022 00:53:56 Meds Admin Complete 06/21/2022 01:08:50 06/21/2022 01:15:33 US Cancel 06/21/2022 01:10:03 06/21/2022 02:13:12 US Complete 06/21/2022 02:13:11 06/21/2022 02:17:14 06/21/2022 03:07:35 Discharge Complete 06/21/2022 04:46:12 06/21/2022 05:06:52 06/21/2022 05:06:52 Transfer Complete 06/21/2022 05:06:52 06/21/2022 05:06:52 06/21/2022 05:06:52 ADDRESS: [facility] [address] [id number] PHYS DOC NOTES: MEDICAL INFORMATION: Prescriptions Given: New Medications [id number], [address], [place] [id number], [phone] naproxen (naproxen 500 mg oral enteric coated tablet) 1 Tablets By Mouth 2 times a day as needed Pain. Refills: 0. ondansetron (Zofran ODT 4 mg Tab-Dis) 1 Tablets By Mouth every 8 hours as needed Nausea/Vomiting. Refills: 0. PATIENT EDUCATION INFORMATION: Instructions: Abdominal Pain, Adult Follow up: With: Address: When: Keith GARCIA [address] [place] [id number] Business (1) In 3 days 06/24/2022 DIAGNOSIS: Abdominal pain, acute [facility] ED Note-Physicianon 06-22-19 ED Note-Physician Basic Information Time Seen: Ritesh Pascal DO 06/20/2022 23:27 Chief Complaint Pt arrives to ed with c/o right sided lower quadrant pain. Pt also has n,v,d and sore throat. History of Present Illness HPI: Patient is a 27-year-old female who is previously healthy presents the ED for abdominal pain. She states that this for started a few hours ago and has been progressively worsening. The pain is in her right lower abdomen. Pain occasionally radiates into her upper abdomen. She has associated nausea and vomiting. She has also had loose bowel movements today. She denies any fevers but does have some chills. She denies any urinary symptoms. She denies any previous abdominal surgeries and has never had any pain like this before. ROS: Pertinent review of systems conducted and is negative except as noted above. Physical exam: General: Uncomfortable appearing HEENT: Mucous membranes moist Neuro: awake and alert Neck: supple, trachea midline Card: Heart regular rate and rhythm no murmur Resp: Lungs clear to auscultation no wheeze or rhonchi Abd: Soft and nondistended. Right lower quadrant tenderness with voluntary guarding, no rebound Ext: No gross deformity or edema Physical Exam Vitals & Measurements T: 36.8 ?C(Oral) HR: 65(Peripheral) RR: 16 BP: 119/74 SpO2: 100% HT: 160.02 cm WT: 55 kg BMI: 21.48 Medical Decision Making MEDICAL DECISION MAKING Number and Complexity of Problems Differential Diagnosis: [] [facility] Data External documents reviewed: N/A My EKG interpretation: Noted in chart if applicable My CT interpretation: N/A My X-ray interpretation: Noted in chart if applicable My Ultrasound interpretation: N/A Decision rules/scores evaluated: N/A Discussed with: N/A Treatment and Disposition ED Course: Patient is nontoxic-appearing and in no distress. She has significant tenderness of the right lower quadrant but is nonperitoneal. We will obtain a CT of the abdomen pelvis to assess for possible appendicitis or other acute intra-abdominal process. We will give her IV fluids as well as Zofran and Dilaudid. Blood work is markable for a elevated leukocytosis of 21.6. CT of abdomen pelvis shows no acute intra-abdominal or pelvic process. Within normal CT and concern for possible ovarian torsion so we will obtain a pelvic ultrasound to evaluate Ultrasound the pelvis shows no evidence of ovarian torsion. Unremarkable appearance of the uterus. On my reassessment the patient states her pain has completely resolved and she is feeling much better. Her abdomen is now soft and nontender. We discussed the plan of discharge with a prescription for Zofran and naproxen as needed. We discussed the need for close follow-up with her primary care physician as well as return precautions should her symptoms return. Patient states understanding agreement with this plan was discharged stable condition. Shared decision making: As above Code status: N/A Assessment/Plan Abdominal pain, acute (R10.9: Unspecified abdominal pain) Orders: HYDROmorphone, 0.5 mg = 0.5 mL, Injection, IV Push, Once, Stop date 06/21/22 0:14:00 EDT, STAT, Start date 06/21/22 0:14:00 EDT, 06/21/22 0:14:00 EDT ketorolac, 15 mg = 1 mL, Injection, IV Push, Once, Stop date 06/21/22 1:08:00 EDT, STAT, Start date 06/21/22 1:08:00 EDT, 06/21/22 1:08:00 EDT naproxen, 500 mg = 1 tab(s), Oral, BID, PRN Pain, # 14 tab(s), Refills(s) 0, [id number], 160, cm, 06/20/22 23:30:00 EDT, Height/Length Dosing, 55, kg, 06/20/22 23:30:00 EDT, Weight Dosing ondansetron, Injection, Misc, Once, Stop date 06/20/22 23:33:33 EDT, Physician Stop, 06/20/22 23:33:33 EDT ondansetron, 4 mg = 2 mL, Injection, IV Push, Once, Stop date 06/20/22 23:37:00 EDT, Start date 06/20/22 23:37:00 EDT ondansetron, 4 mg = 2 mL, Injection, IV Push, Once, Stop date 06/20/22 23:38:00 EDT, STAT, Start date 06/20/22 23:38:00 EDT, 06/20/22 23:38:00 EDT ondansetron, 4 mg = 1 tab(s), Oral, q8hr, PRN Nausea/Vomiting, # 16 tab(s), Refills(s) 0, Pharmacy: [id number], 160, cm, 06/20/22 23:30:00 EDT, Height/Length Dosing, 55, kg, 06/20/22 23:30:00 EDT, Weight Dosing promethazine, 12.5 mg = 0.5 mL, Injection, IV Push, Once, Stop date 06/21/22 1:08:00 EDT, STAT, Start date 06/21/22 1:08:00 EDT, 06/21/22 1:08:00 EDT Sodium Chloride 0.9% intravenous solution, Soln-IV, Misc, Once, Stop date 06/20/22 23:33:21 EDT, Physician Stop, 06/20/22 23:33:21 EDT Sodium Chloride 0.9% intravenous solution, 1,000 mL, IV Push, Stop date 06/20/22 23:37:00 EDT, Start date 06/20/22 23:37:00 EDT Sodium Chloride 0.9% intravenous solution, 1,000 mL, Soln-IV, IV, Once, Stop date 06/20/22 23:38:00 EDT, STAT, Start date 06/20/22 23:38:00 EDT, Infuse over 61, minute(s) Automated Diff Basic Metabolic Panel Beta hCG Qual CBC w/ Auto Diff CT Abdomen/Pelvis w/ Contrast eGFR Hepatic Function Panel Lipase Level Saline Lock Insert UA With Cult Reflex US Pelvis Non-OB Complete Medications Administered (more content not included)... [facility] Comment on above: Result Comment: Elec tronically Signed By: Ritesh Pascal DO\.br\Date and Time Signed: 06/21/22 04:48 EDT ED Patient Education Noteon 06-21-2022 ED Patient Education Note Gastroenterology Abdominal Pain, Adult Pain in the abdomen (abdominal pain) can be caused by many things. Often, abdominal pain is not serious and it gets better with no treatment or by being treated at home. However, sometimes abdominal pain is serious. Your health care provider will ask questions about your medical history and do a physical exam to try to determine the cause of your abdominal pain. Follow these instructions at home: Medicines ? Take echr-oqn-xqmspll and prescription medicines only as told by your health care provider. ? Do not take a laxative unless told by your health care provider. General instructions ? Watch your condition for any changes. ? Drink enough fluid to keep your urine pale yellow. ? Keep all follow-up visits as told by your health care provider. This is important. Contact a health care provider if: ? Your abdominal pain changes or gets worse. ? You are not hungry or you lose weight without trying. ? You are constipated or have diarrhea for more than 2?3 days. ? You have pain when you urinate or have a bowel movement. ? Your abdominal pain wakes you up at night. ? Your pain gets worse with meals, after eating, or with certain foods. ? You are vomiting and cannot keep anything down. ? You have a fever. ? You have blood in your urine. Get help right away if: ? Your pain does not go away as soon as your health care provider told you to expect. ? You cannot stop vomiting. ? Your pain is only in areas of the abdomen, such as the right side or the left lower portion of the abdomen. Pain on the right side could be caused by appendicitis. ? You have bloody or black stools, or stools that look like tar. ? You have severe pain, cramping, or bloating in your abdomen. ? You have signs of dehydration, such as: ? Dark urine, very little urine, or no urine. ? Cracked lips. ? Dry mouth. ? Sunken eyes. ? Sleepiness. ? Weakness. ? You have trouble breathing or chest pain. Summary ? Often, abdominal pain is not serious and it gets better with no treatment or by being treated at home. However, sometimes abdominal pain is serious. ? Watch your condition for any changes. ? Take zsuy-wto-zchtdhi and prescription medicines only as told by your health care provider. ? Contact a health care provider if your abdominal pain changes or gets worse. ? Get help right away if you have severe pain, cramping, or bloating in your abdomen. This information is not intended to replace advice given to you by your health care provider. Make sure you discuss any questions you have with your health care provider. Document Revised: 03/30/2020 Document Reviewed: 06/20/2019 [employer] Patient Education ? 2022 [employer] [facility] ED Patient Summaryon 023 ED Patient Summary [address] [address] Patient Discharge Instructions Person Information Name: LEENA CORDERO Age: 27 Years Arrival Date: 06/20/2022 23:19:15 Discharge Diagnosis: Abdominal pain, acute Primary Care Physician: Keith GARCIA DO Provider Information Primary Provider: Ritesh Pascal DO Advanced Director Of Student Life:None The exam and treatment you received in the Emergency Department were for an urgent problem and are not intended as complete care. It is important that you follow up with a doctor, nurse practitioner, or physician?s licensed physical therapy assistant for ongoing care. If your symptoms become worse or you do not improve as expected and you are unable to reach your usual health care provider, you should return to the Emergency Department. We are available 24 hours a day. LEENA CORDERO LARRY has been given the following list of patient education materials, prescriptions and follow-up instructions: Follow-up Instructions: With: Address: When: Keith GARCIA [address] [place] [phone] Business (1) In 3 days 06/24/2022 In the event that this physician does not participate in your insurance network, please consult with your insurance company to find a nearby participating provider. Patient Education Materials: Abdominal Pain, Adult A MESSAGE TO ALL PATIENTS REGARDING OPIOIDS PRESCRIPTION OPIOIDS: WHAT YOU NEED TO KNOW Prescription opioids can be used to help relieve phfkxhxv-hl-ijdsam pain and are often prescribed following a surgery or injury, or for certain health conditions. These medications can be an important part of the treatment but also come with serious risks. It is important to work with your healthcare provider to make sure you are getting the safest, most effective care. WHAT ARE THE RISKS AND SIDE EFFECTS OF OPIOID USE? Prescription opioids carry serious risks of addiction and overdose, especially with prolonged use. An opioid overdose, often marked by slowed breathing, can cause sudden . The use of prescription opioids can have a number of side effects as well, even when taken as directed: ? Tolerance?meaning you might need to take more of the medication for the same pain relief ? Physical dependence?meaning you have symptoms of withdrawal when a medication is stopped ? Increased sensitivity to pain ? Constipation ? Nausea, vomiting, and dry mouth ? Sleepiness and dizziness ? Confusion ? Depression ? Low levels of testosterone that can result in lower sex drive, energy, and strength ? Itching and sweating RISKS ARE GREATER WITH: ? History of drug misuse, substance use disorder, or overdose ? Mental health conditions (such as depression or anxiety) ? Sleep apnea ? Older age (65 years and older) ? Avoid alcohol while taking prescription opioids. Also, unless specifically advised by your health care provider, medications to avoid include: ? Benzodiazepines (such as Xanax or Valium) ? Muscle relaxants (such as Soma or Flexeril) ? Hypnotics (such as Ambien or Lunesta) ? Other prescription opioids KNOW YOUR OPTIONS Talk to your health care provider about ways to manage your pain that don?t involve prescription opioids. Some of these options may actually work better and have fewer risks and side effects. Options may include: ? Pain relievers such as acetaminophen, ibuprofen, and naproxen ? Some medication that are also used for depression or seizures ? Physical therapy and exercise ? Cognitive behavioral therapy, a psychological, goal-directed approach, in which patients learn how to modify physical, behavioral, and emotional triggers of pain and stress. IF YOU ARE PRESCRIBED OPIOIDS FOR PAIN: ? Never take opioids in greater amounts or more often than prescribed. ? Follow up with your primary health care provider. o Work together to create a plan on how to manage your pain. o Talk about ways to help manage your pain that don?t involve prescription opioids. o Talk about any and all concerns and side effects. ? Help prevent misuse and abuse o Never sell or share prescription opioids. o Never use another person?s prescription opioids. ? Store prescription opioids in a secure place and out of reach of others (this may include visitors, children, friends, and family). ? Safely dispose of unused prescription opioids: Find your community drug take-back program or your pharmacy mail-back program, or flush them down the toilet, following guidance from the Food and Drug Administration (www.fda.gov/Drugs/R esourcesForYou). ? Visit www.cdc.gov/drugover dose to learn about the risks of opioids abuse and overdose. ? If you believe you may be struggling with addiction, tell your health chiropractic care and ask for guidance or call SAMHSA?S National Helpline at 2-910-874-HELP. v Source: [facility] (more content not included)... [facility] Hep Func Panelon 06-21-2022 Bilirubin.indirect [Mass or moles/Vol] UTC Abnormal 0.1-0.9 [facility] Comment on above: Result Comment: Resu lt verified by Discern Rule. Performed result UTC (Unable to Calculate) was sent as an Alpha code due the inability to calculate a valid numeric value. Performed By: #### 2 [id number], 3633899, 1286546, 4098771, 68037508, 97261539, 8030202 ####[facility] [address] [place] [address] Albumin [Mass/Vol] 4.1 g/dL Normal 3.3-5.0 [facility] Comment on above: Performed By: #### 2 259302, 9346495, 0913186, 6587366, 71632909, 27265573, 7802081 ####[address] [place] [address] Albumin/Globulin (S) [Mass conc ratio] 1.1 Normal 1.1-2.2 [facility] Comment on above: Performed By: #### 2 699849, 1975701, 3357601, 2022330, 85188708, 67055829, 1614427 ####[address] [address] ALP [Catalytic activity/Vol] 86 Int._Unit/L Normal 21-98 [facility] Comment on above: Performed By: #### 2 391894, 2614184, 4169371, 2271700, 45516511, 13339212, 0941068 ####[address] [address] ALT No additional P-5'-P [Catalytic activity/Vol] 16 Int._Unit/L Normal 6-46 [facility] Comment on above: Performed By: #### 2 659382, 9312101, 0776293, 9172899, 89232207, 13792240, 3246081 ####[facility] [address] [place] [address] AST [Catalytic activity/Vol] 22 Int._Unit/L Normal 5-43 [facility] Comment on above: Performed By: #### 2 979148, 6380513, 3426450, 9794740, 49300807, 27603124, 0459719 ####[address] [place] [address] Bilirubin [Mass/Vol] 0.5 mg/dL Normal 0.0-1.1 [facility] Comment on above: Performed By: #### 2 404717, 0864047, 7997234, 0300171, 45541072, 77618125, 8198170 ####[address] [address] Globulin (S) [Mass/Vol] 3.6 g/dL Normal 1.4-4.0 [facility] Comment on above: Performed By: #### 2 353024, 9293054, 7405834, 2140866, 67562636, 15450152, 8798796 ####[address] [address] Protein [Mass/Vol] 7.7 g/dL Normal 6.0-7.8 [facility] Comment on above: Performed By: #### 2 013371, 3730057, 7408947, 2532595, 87615739, 54838175, 7610391 ####[address] [address] Bilirubin.direct [Mass/Vol] mg/dL Normal 0.1-0.4 [facility] Comment on above: Performed By: #### 2 756432, 7031248, 8527019, 8888626, 19454278, 29368268, 6330067 ####[address] [address] Lipase Levelon 06-21-2022 Lipase [Catalytic activity/Vol] 32 U/L Normal 13-58 [facility] Comment on above: Performed By: #### 2 696892, 4628903, 2039174, 5331528, 48381788, 29841942, 5811917 ####[address] [address] RAD - Preliminary Cat Scan R eporton 06-21-2022 RAD - Preliminary Cat Scan Report [id number] 9#[id number]:127 [facility] RAD - Preliminary Cat Scan Report [id number] 5#1.00CD:127 Normal [facility] UA With Cult Reflexon 2022 Bilirubin Ql (U) Negative Normal Negative [facility] Comment on above: Performed By: #### 1 [id number] ####[facility] [address] [place] [address] Clarity (U) CLEAR Normal Clear [facility] Comment on above: Performed By: #### 1 8250905 ####[facility] [address] [place] [address] Color (U) STRAW Invalid Interpretation Code [facility] Comment on above: Performed By: #### 1 0381013 ####[address] [address] Epithelial cells.squamous LM.HPF (Urine sed) [#/Area] 0-2 Normal 0-2 [facility] Comment on above: Performed By: #### 1 6465804 ####[facility] [address] [place] [address] Glucose Test strip (U) [Mass/Vol] Negative Normal Negative [facility] Comment on above: Performed By: #### 1 5345965 ####[facility] [address] [place] [address] Hemoglobin Ql (U) TRACE Abnormal Negative [facility] Comment on above: Performed By: #### 1 3994816 ####[facility] [address] [place] [address] Ketones (U) [Mass/Vol] TRACE Invalid Interpretation Code Negative [facility] Comment on above: Performed By: #### 1 0468276 ####[address] [address] [place].plasma/[place] .RBC (Bld) [Mass ratio] 0-3 Normal 0-3 [facility] Comment on above: Performed By: #### 1 2911293 ####[facility] [address] [place] [address] Nitrite Ql (U) Negative Normal Negative [facility] Comment on above: Performed By: #### 1 9851059 ####[address] [address] pH (U) 8.0 [pH] Invalid Interpretation Code 5.0-9.0 [facility] Comment on above: Performed By: #### 1 9718900 ####[address] [address] Protein (U) [Mass/Vol] Negative Normal Negative [facility] Comment on above: Performed By: #### 1 8467555 ####[address] [address] Specific gravity (U) [Rel density] 1.010 Invalid Interpretation Code 1.005-1.030 [facility] Comment on above: Performed By: #### 1 3169667 ####[address] [address] Type of Urine collection method Clean Catch Normal [facility] Comment on above: Performed By: #### 1 9994286 ####[address] [address] Urobilinogen Qn (U) 0.2 {Hima'U}/dL Normal 0.0-1.0 [facility] Comment on above: Performed By: #### 1 9345454 ####[address] [address] WBC Auto Ql (U) Negative Normal Negative [facility] Comment on above: Performed By: #### 1 1567142 ####[address] [address] WBC LM.HPF (Urine sed) [#/Area] 0-5 Normal 0-5 [facility] Comment on above: Performed By: #### 1 6201212 ####[address] [address] URINALYSISOrdered By: Tom Jon on 06-21-2022 Bilirubin Ql (U) Negative (06/21/22 1:12 AM) Normal Negative [facility] UA Auto SS Clarity (U) Clear (06/21/22 1:12 AM) Normal Clear [facility] UA Auto SS Color (U) STRAW Invalid Interpretation Code [facility] UA Auto SS Epithelial cells.squamous LM.HPF (Urine sed) [#/Area] 0-2 /HPF Normal 0-2/HPF [facility] UA Aut o SS Glucose Test strip (U) [Mass/Vol] Negative (06/21/22 1:12 AM) Normal Negative [facility] UA Auto SS Hemoglobin Ql (U) Trace *ABN* (06/21/22 1:12 AM) Invalid Interpretation Code Negative [facility] UA Auto SS Ketones (U) [Mass/Vol] Trace *NA* (06/21/22 1:12 AM) Invalid Interpretation Code Negative [facility] UA Auto SS [place].plasma/[place] .RBC (Bld) [Mass ratio] 0-3 /HPF Normal 0-3/HPF [facility] UA Auto SS Nitrite Ql (U) Negative (06/21/22 1:12 AM) Normal Negative [facility] UA Auto SS pH (U) 8.0 *NA* (06/21/22 1:12 AM) Invalid Interpretation Code 5.0 - 9.0 [facility] UA Auto SS Protein (U) [Mass/Vol] Negative (06/21/22 1:12 AM) Normal Negative [facility] UA Auto SS Specific gravity (U) [Rel density] 1.010 *NA* (06/21/22 1:12 AM) Invalid Interpretation Code 1.005 - 1.030 [facility] UA Auto SS UA Spec Desc Clean Catch (06/21/22 1:12 AM) Normal [facility] UA Auto SS Urobilinogen Qn (U) 0.3058840 {Hima'U}/dL Normal 0.0 - 1.0 EU/dL [facility] UA Auto SS WBC Auto Ql (U) Negative (06/21/22 1:12 AM) Normal Negative [facility] UA Auto SS WBC LM.HPF (Urine sed) [#/Area] 0-5 /HPF Normal 0-5/HPF [facility] UA Auto SS US Pelvis Non-OB Completeon 06-21-2022 US Pelvis Non-OB Complete Exam Date/Time: 06/21/2022 03:07 EDT Reason for Exam: Torsion Report IMPRESSION: MILD DEBRIS AND RUIZ CATHETER WITHIN THE URINARY BLADDER. OTHERWISE, NEGATIVE ULTRASOUND OF THE PELVIS. EXAM: US Pelvis Non-OB Complete DATE: 06/21/2022 CLINICAL HISTORY: Right lower quadrant/pelvic pain. COMPARISON: CT abdomen and pelvis from earlier 06/21/2022. TECHNIQUE: Transabdominal ultrasound was performed of the pelvis. FINDINGS: A Ruiz catheter in mild debris is noted within the urinary bladder. The uterus is anteverted and mildly anteflexed in position, and otherwise unremarkable in appearance. Both ovaries appear within normal limits for the patient's age group. Equivalent blood flow is noted to both ovaries on Doppler analysis. There is no significant free fluid, abnormal adnexal masses, or other findings of concern identified. The uterine measurements and estimated volume: Uterus Length: 9.2 cm Uterus Width: 6.2 cm Uterus Height: 5.3 cm Uterus Volume: 156.3 cm3 Endometrium Thickness: 0.4 cm The right ovary measurements and estimated volume: Right Ovary Length: 2.8 cm Right Ovary Width: 1.7 cm Right Ovary Height: 2.5 cm Right Ovary Volume: 6.1 cm3 Report The left ovary measurements and an estimated volume are: Left Ovary Length: 2.9 cm Left Ovary Width: 3.1 cm Left Ovary Height: 1.5 cm Left Ovary Volume: 7.2 cm3 Ordering Provider: Ritesh Pascal FINAL REPORT Dictated: 06/21/2022 9:02 am Brett Colon MD Signed (Electronic Signature): 06/21/2022 9:02 am Signed by: Brett Colon MD Transcribed by: JUAN FRANCISCO Technologist: AD Technical Comments Transabdominal Ultrasound Performed Uterus Position Anteverted Normal [facility] eGFRon 06-21-2022 GFR/1.73 sq M.predicted among non-blacks MDRD (S/P/Bld) [Vol rate/Area] 123 mL/min/1.73 m2 Normal >=59 [facility] Comment on above: Order Comment: Order added by Discern Expert. 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 Kidney failure is indicated at less than 15 mL/min/1.73m2. Performed By: #### 2 735876, 0804232, 3752495, 1471467, 44283189, 94579858, 3623230 ####[facility] [address] [place] [address] CHEMISTRYOrdered By: SYSTEM SYSTEM on 06-20-2022 Albumin [Mass/Vol] 4.1 g/dL Normal 3.3 - 5.0 gm/dL [facility] Remisol Albumin/Globulin [Mass ratio] 1.1 {ratio} Normal 1.1 - 2.2 [facility] Remisol ALP [Catalytic activity/Vol] 86 [iU]/d Normal 21 - 98 Int._Unit/L [facility] Remisol ALT No additional P-5'-P [Catalytic activity/Vol] 16 [iU]/d Normal 6 - 46 Int._Unit/L [facility] Remisol Anion gap [Moles/Vol] 12 mmol/L Normal 6 - 16 mEq/L F [facility] Remisol AST [Catalytic activity/Vol] 22 [iU]/d Normal 5 - 43 Int._Unit/L [facility] Remisol Bilirubin [Mass/Vol] 0.5 mg/dL Normal 0.0 - 1 .1 mg/dL [facility] Remisol Bilirubin.direct [Mass/Vol] mg/dL Normal 0.1 - 0.4 mg/dL [facility] Remisol Bilirubin.indirect [Mass or moles/Vol] Unable to Calculate mg/dL Invalid Interpretation Code 0.1 - 0.9 mg/dL [facility] Calcium [Mass/Vol] 8.8 mg/dL Low 8.9 - 11. 1 mg/dL [facility] Chloride [Moles/Vol] 105 mmol/L Normal 101 - 1 11 mmol/L [facility] CO2 [Moles/Vol] 23 mmol/L Normal 21 - 31 mmol/L [facility] Creatinine [Mass/Vol] 0.7 mg/dL Normal 0.5 - 1.3 mg/dL [facility] GFR/1.73 sq M.predicted among non-blacks MDRD (S/P/Bld) [Vol rate/Area] 123 mL/min/1.73 m2 Normal >=59mL/min/1 .73 m2 [facility] S Globulin (S) [Mass/Vol] 3.6 g/dL Normal 1.4 - 4.0 gm/dL [facility] Glucose [Mass/Vol] 104 mg/dL Normal 55 - 199 mg/dL [facility] Lipase [Catalytic activity/Vol] 32 U/L Normal 13 - 58 unit/L [facility] Potassium [Moles/Vol] 3.4 mmol/L Low 3.5 - 5.3 mmol/L [facility] Protein [Mass/Vol] 7.7 g/dL Normal 6.0 - 7.8 gm/dL [facility] Sodium [Moles/Vol] 137 mmol/L Normal 135 - 145 mmol/L [facility] Urea nitrogen [Mass/Vol] 12 mg/dL Normal 5 - 21 mg/dL [facility] Urea nitrogen/Creatinine [Mass ratio] 17 mg/mg Normal 10 - 20 [facility] HEMATOLOGYOrdered By: SYSTEM SYSTEM on 06-20-2022 Basophils/100 WBC (Bld) 0.7 % Normal 0.0 - 2.0 % [facility] Basophils/Leukocytes Auto (Bld) [Pure # fraction] 0.2 E9/L Normal 0.0 - 0.2 E9/L [facility] Eosinophils/100 WBC (Bld) 0.9 % Normal 0.0 - 8.0 % [facility] Eosinophils/Leukocytes Auto (Bld) [Pure # fraction] 0.2 E9/L Normal 0.0 - 0.5 E9/L [facility] Lymphocytes/100 WBC (Bld) 19.5 % Normal 14.0 - 50.0 % [facility] Lymphocytes/Leukocytes Auto (Bld) [Pure # fraction] 4.2 E9/L High 1.0 - 4.0 E9/L [facility] Monocytes/100 WBC (Bld) 4.9 % Normal 4.0 - 14.0 % [facility] Monocytes/Leukocytes Auto (Bld) [Pure # fraction] 1.1 E9/L High 0.2 - 1.0 E9/L [facility] Neutrophils/100 WBC (Bld) 74.0 % Normal 36.0 - 75.0 % [facility] Neutrophils/Leukocytes Auto (Bld) [Pure # fraction] 15.9 E9/L High 2.0 - 7.5 E9/L [facility] HEMATOLOGYOrdered By: Tom Jon on 06-20-2022 Erythrocyte distribution width (RBC) [Ratio] 12.3 % Normal 10.9 - 14.2 % [facility] Hematocrit (Bld) [Volume fraction] 41.0 % Normal 34.0 - 46.0 % [facility] Hemoglobin (Bld) [Mass/Vol] 13.4 g/dL Normal 12.0 - 16.0 gm/dL [facility] MCH (RBC) [Entitic mass] 28.2 pg Normal 27.0 - 34.0 pg [facility] MCHC (RBC) [Mass/Vol] 32.7 g/dL Normal 31.4 - 36.0 gm/dL [facility] MCV (RBC) [Entitic vol] 86.3 fL Normal 80.0 - 100.0 fL [facility] Platelet mean volume (Bld) [Entitic vol] 7.2 fL Normal 6.4 - 10.8 fL [facility] Platelets (Bld) [#/Vol] 414.0 E9/L Normal 150.0 - 500.0 E9/L [facility] RBC (Bld) [#/Vol] 4.8 E12/L Normal 4.3 - 5.9 E12/L [facility] WBC corrected for nucl RBC Auto (Bld) [#/Vol] 21.6 E9/L High 4.0 - 11.0 E9/L [facility] Comment on above: Result Comment: Slid e reviewed by AD. SEROLOGYOrdered By: Allegra Jon on 06-20-2022 Beta hCG Ql Negative (06/20/22 11:40 PM) Normal [facility] Man Sero CANNABINOID (THC) CONFIRMATI ON, URINEon 11-19-2021 Cannabinoid Positive Abnormal [facility] Comment on above: Performed By: #### T HCCONF #### [facility] [address] [address] [address] Nannette Shafer THC GC/MS Conf 629 ng/mL Normal Cutoff=10 Th e [facility] Comment on above: Performed By: #### T HCCONF #### [facility] [address], [place] [address] Dr. Nannette Baker CBC AUTO DIFFon 11-13-2021 BASO # 0.1 103/ul Normal 0.0-0.1 [facility] Comment on above: Performed By: #### C BC #### [facility] [address] [place] [address] Dr. Nannette Baker Basophils/100 WBC (Bld) 0.5 % Normal 0.2-2.0 [facility] Comment on above: Performed By: #### C BC #### [facility] [address] [place] [address] Dr. Nannette Baker EO # 0.2 103/ul Normal 0.0-0.7 [facility] Comment on above: Performed By: #### C BC #### [facility] [address] [place] [address] Dr. Nannette Baker Eosinophils/100 WBC (Bld) 1.2 % Normal 0.9-7.0 [facility] Comment on above: Performed By: #### C BC #### [facility] [address] [place] [address] Dr. Nannette Baker Erythrocyte distribution width (RBC) [Ratio] 12.2 % Normal 11.0-15.0 [facility] Comment on above: Performed By: #### C BC #### [facility] [address] [place] [address] Dr. Nannette Baker Hematocrit (Bld) [Volume fraction] 33.4 % Critically low 36.0-48.0 [facility] Comment on above: Performed By: #### C BC #### [facility] [address] [place] [address] Dr. Nannette Baker Hemoglobin (Bld) [Mass/Vol] 11.5 g/dL Critically low 12.0-16.0 [facility] Comment on above: Performed By: #### C BC #### [facility] [address] [place] [address] Dr. Nannette Baker IG # 0.06 10e3/ul Critically high 0.00-0.03 [facility] Comment on above: Performed By: #### C BC #### [facility] [address] [place] [address] Dr. Nannette Baker IG % 0.5 % Normal 0.0-0.5 [facility] Comment on above: Performed By: #### C BC #### [facility] [address] [place] [address] Dr. Nannette Baker LYMPH # 2.3 103/ul Normal 1.2-3.8 [facility] Comment on above: Performed By: #### C BC #### [facility] [address] [place] [address] Dr. Nannette Baker Lymphocytes/100 WBC (Bld) 17.5 % Critically low 20.5-60.0 [facility] Comment on above: Performed By: #### C BC #### [facility] [address] [place] [address] Dr. Nannette Baker MANUAL DIFF REQ NO Normal [facility] Comment on above: Performed By: #### C BC #### [facility] [address] [place] [address] Dr. Nannette Baker MCH (RBC) [Entitic mass] 31.2 pg Normal 26.7-34.0 [facility] Comment on above: Performed By: #### C BC #### [facility] [address] [place] [address] Dr. Nannette Baker MCHC (RBC) [Mass/Vol] 34.4 g/dL Normal 29.9-35.2 [facility] Comment on above: Performed By: #### C BC #### [facility] [address] [place] [address] Dr. Nannette Baker MCV (RBC) [Entitic vol] 90.5 fL Normal 81.0-99.0 [facility] Comment on above: Performed By: #### C BC #### [facility] [address] [place] [address] Dr. Nannette Baker MONO # 0.8 103/ul Normal 0.3-0.8 [facility] Comment on above: Performed By: #### C BC #### [facility] [address] [place] [address] Dr. Nannette Baker Monocytes/100 WBC (Bld) 6.0 % Normal 1.7-12.0 [facility] Comment on above: Performed By: #### C BC #### [facility] [address] [address] [address] Nannette Baker NEUT # 9.7 103/ul Critically high 1.4-6.5 [facility] Comment on above: Performed By: #### C BC #### [facility] [address] [address] [address] Nannette Baker Neutrophils/100 WBC (Bld) 74.3 % Normal 43.0-75.0 [facility] Comment on above: Performed By: #### C BC #### [facility] [address] [place] [address] Dr. Nannette Baker Platelet mean volume (Bld) [Entitic vol] 9.4 fL Critically low 9.5-13.5 [facility] Comment on above: Performed By: #### C BC #### [facility] [address] [place] [address] Dr. Nannette Baker PLT 247 103/ul Normal 150-450 [facility] Comment on above: Performed By: #### C BC #### [facility] [address] [place] [address] Dr. Nannette Baker RBC 3.69 106/ul Critically low 4.20-5.40 [facility] Comment on above: Performed By: #### C BC #### [facility] [address] [place] [address] Dr. Nannette Baker WBC 13.0 103/ul Critically high 4.0-11.0 [facility] Comment on above: Performed By: #### C BC #### [facility] [address] [place] [address] Dr. Nannette Baker CBC AUTO DIFFon 11-12-2021 BASO # 0.0 103/ul Normal 0.0-0.1 [facility] Comment on above: Performed By: #### T HCCONF #### [facility] [address] [place] [address] Dr. Nannette Baker Basophils/100 WBC (Bld) 0.3 % Normal 0.2-2.0 [facility] Comment on above: Performed By: #### T HCCONF #### [facility] [address] [place] [address] Dr. Nannette Baker EO # 0.1 103/ul Normal 0.0-0.7 [facility] Comment on above: Performed By: #### T HCCONF #### [facility] [address] [place] [address] Dr. Nannette Baker Eosinophils/100 WBC (Bld) 1.2 % Normal 0.9-7.0 [facility] Comment on above: Performed By: #### T HCCONF #### [facility] [address] [place] [address] Dr. Nannette Baker Erythrocyte distribution width (RBC) [Ratio] 12.0 % Normal 11.0-15.0 [facility] Comment on above: Performed By: #### T HCCONF #### [facility] [address] [place] [address] Dr. Nannette Baker Hematocrit (Bld) [Volume fraction] 33.0 % Critically low 36.0-48.0 [facility] Comment on above: Performed By: #### T HCCONF #### [facility] [address] [place] [address] Dr. Nannette Baker Hemoglobin (Bld) [Mass/Vol] 11.1 g/dL Critically low 12.0-16.0 [facility] Comment on above: Performed By: #### T HCCONF #### [facility] [address] [place] [address] Dr. Nannette Baker IG # 0.05 10e3/ul Critically high 0.00-0.03 [facility] Comment on above: Performed By: #### T HCCONF #### [facility] [address] [place] [address] Dr. Nannette Baker IG % 0.5 % Normal 0.0-0.5 [facility] Comment on above: Performed By: #### T HCCONF #### [facility] [address] [place] [address] Dr. Nannette Baker LYMPH # 1.8 103/ul Normal 1.2-3.8 [facility] Comment on above: Performed By: #### T HCCONF #### [facility] [address] [place] [address] Dr. Nannette Baker Lymphocytes/100 WBC (Bld) 16.4 % Critically low 20.5-60.0 [facility] Comment on above: Performed By: #### T HCCONF #### [facility] [address] [place] [address] Dr. Nannette Baker MANUAL DIFF REQ NO Normal [facility] Comment on above: Performed By: #### T HCCONF #### [facility] [address] [place] [address] Dr. Nannette Baker MCH (RBC) [Entitic mass] 30.7 pg Normal 26.7-34.0 [facility] Comment on above: Performed By: #### T HCCONF #### [facility] [address] [place] [address] Dr. Nannette Baker MCHC (RBC) [Mass/Vol] 33.6 g/dL Normal 29.9-35.2 [facility] Comment on above: Performed By: #### T HCCONF #### [facility] [address] [place] [address] Dr. Nannette Baker MCV (RBC) [Entitic vol] 91.4 fL Normal 81.0-99.0 [facility] Comment on above: Performed By: #### T HCCONF #### [facility] [address] [place] [address] Dr. Nannette Baker MONO # 0.6 103/ul Normal 0.3-0.8 [facility] Comment on above: Performed By: #### T HCCONF #### [facility] [address] [place] [address] Dr. Nannette Baker Monocytes/100 WBC (Bld) 5.7 % Normal 1.7-12.0 [facility] Comment on above: Performed By: #### T HCCONF #### [facility] [address] [place] [address] Dr. Nannette Baker NEUT # 8.4 103/ul Critically high 1.4-6.5 [facility] Comment on above: Performed By: #### T HCCONF #### [facility] [address] [place] [address] Dr. Nannette Baker Neutrophils/100 WBC (Bld) 75.9 % Critically high 43.0-75.0 [facility] Comment on above: Performed By: #### T HCCONF #### [facility] [address] [place] [address] Dr. Nannette Baker Platelet mean volume (Bld) [Entitic vol] 9.4 fL Critically low 9.5-13.5 [facility] Comment on above: Performed By: #### T HCCONF #### [facility] [address] [place] [address] Dr. Nannette Baker PLT 230 103/ul Normal 150-450 [facility] Comment on above: Performed By: #### T HCCONF #### [facility] [address] [place] [address] Dr. Nannette Baker RBC 3.61 106/ul Critically low 4.20-5.40 [facility] Comment on above: Performed By: #### T HCCONF #### [facility] [address] [place] [address] Dr. Nnanette Baker WBC 11.1 103/ul Critically high 4.0-11.0 [facility] Comment on above: Performed By: #### T HCCONF #### [facility] [address] [place] [address] Dr. Nannette Baker [facility]on [facility]25 SARS-CoV-2 (COVID-19) RNA CHARLENE+probe Ql (Unsp spec) Not detected Normal NOT DETECTED [facility] Comment on above: Result Comment: When diagnostic testing is negative, the possibility of a false negative should be considered in the context of a patient's recent exposures and the presence of clinical signs and symptoms consistent with SARS-CoV-2. This test is not yet approved or cleared by the [place] FDA. When there are no FDA-approved or cleared tests available, and other criteria are met, FDA can make tests available under an emergency access mechanism called an Emergency Use Authorization (EUA). The EUA for this test is supported by the [employer] of Health and Human Service's declaration that circumstances exist to justify the emergency use of in vitro diagnostics for the detection and/or diagnosis of the virus that causes COVID-19. This EUA will remain in effect for the duration of the COVID-19 declaration justifying emergency of IVDs, unless it is terminated or revoked by the FDA (after which the test may no longer be used). Performed By: #### C VDTBH #### [facility] [address] [place] [address] Dr. Nannette Baker DRUG SCREEN RAPID (URINE)on 11-12-2021 AMP Negative Normal NEGATIVE [facility] Comment on above: Performed By: #### D RUGRPD #### [facility] [address] [place] [address] Dr. Nannette Baker BAR Negative Normal NEGATIVE [facility] Comment on above: Performed By: #### D RUGRPD #### [facility] [address] [place] [address] Dr. Nannette Baker BUP Negative Normal NEGATIVE [facility] Comment on above: Performed By: #### D RUGRPD #### [facility] [address] [place] [address] Dr. Nannette Baker BZO Negative Normal NEGATIVE [facility] Comment on above: Performed By: #### D RUGRPD #### [facility] [address] [place] [address] Dr. Nannette Baker SORAIDA Negative Normal NEGATIVE [facility] Comment on above: Performed By: #### D RUGRPD #### [facility] [address] [place] [address] Dr. Nannette Baker CUT-OFFS SEE BELOW Normal [facility] Comment on above: Result Comment: AMP (Amphetamine): 500ng/mL, BAR (Barbituates): 200 ng/mL, BZO (Benzodiazepines): 150 ng/mL, BUP (Buprenorphine): 10 ng/mL, SORAIDA (Cocaine): 150 ng/mL, mAMP (Methamphetamine): 500 ng/mL, MTD (Methadone): 200 ng/mL, OPI (Opiates): 100 ng/mL, OXY (Oxycodone): 100 ng/mL, PCP (Phencyclidine): 25 ng/mL, PPX (Propoxyphene): 300 ng/mL, THC (Cannabinoids): 50 ng/mL, TCA (Trycyclic Antidepressants): 300 ng/mL Performed By: #### D RUGRPD #### [facility] [address] [place] [address] Dr. Nannette Baker DRUG CUT HEADER DRUG CLASS TEST SYSTEM CUT-OFF CONCENTRATIONS ARE FOLLOWS: Normal [facility] Comment on above: Performed By: #### D RUGRPD #### [facility] [address] [place] [address] Dr. Nannette Baker mAMP Negative Normal NEGATIVE [facility] Comment on above: Performed By: #### D RUGRPD #### [facility] [address] [place] [address] Dr. Nannette Baker MTD Negative Normal NEGATIVE [facility] Comment on above: Performed By: #### D RUGRPD #### [facility] [address] [place] [address] Dr. Nannette Baker OPI Negative Normal NEGATIVE [facility] Comment on above: Performed By: #### D RUGRPD #### [facility] [address] [place] [address] Dr. Nannette Baker OXY Negative Normal NEGATIVE [facility] Comment on above: Performed By: #### D RUGRPD #### [facility] [address] [place] [address] Dr. Nannette Baker PCP Negative Normal NEGATIVE [facility] Comment on above: Performed By: #### D RUGRPD #### [facility] [address] [place] [address] Dr. Nannette Baker PPX Negative Normal NEGATIVE [facility] Comment on above: Performed By: #### D RUGRPD #### [facility] [address] [place] [address] Dr. Nannette Baker TCA Negative Normal NEGATIVE [facility] Comment on above: Performed By: #### D RUGRPD #### [facility] [address] [place] [address] Dr. Nannette Baker THC Positive Abnormal NEGATIVE [facility] Comment on above: Performed By: #### D RUGRPD #### [facility] [address] [place] [address] Dr. Nannette Baker TYPE AND SCREENon 11-12-2021 TYPE AND SCREEN Negative Normal [facility] Comment on above: Performed By: #### T NS #### [facility] [address] [place] [address] Dr. Nannette Baker GROUP B STREP CULTUREon S. agalactiae Ag Ql (Unsp spec) Isolate 1 Streptococcus agalactiae Moderate growth of ORGANISM 1 Streptococcus agalactiae ANTIBIOTIC M.I.C RX STATUS Benzylpenicillin <=0.06 S F Ampicillin <=0.25 S F Cefotaxime <=0.12 S F Ceftriaxone <=0.12 S F Levofloxacin 1 S F Inducible Clindamycin Resistance Neg NEG F Erythromycin 2 R F Clindamycin <=0.25 S F Linezolid <=2 S F Vancomycin 0.5 S F Tetracycline >=16 R F Normal [facility] Comment on above: Performed By: #### C VDTBH #### [facility] [address] [place] [address] Dr. Nannette Baker US PREG GROWTHon 10-22-2021 US PREG GROWTH EXAMINATION: US PREG GROWTH HISTORY: Large for gestation age fetus COMPARISON: Ultrasound growth 09/25/2021 FINDINGS: Heart Rate: 142.0 bpm Number: 1.0 Position: CEPHALIC Amniotic Fluid Volume: 16.2 cm Maximum Vertical Pocket: 4.7 cm BIOMETRY: BPD: 8.9 cm cm; 36 weeks 1 days HC: 32.3 cmcm; 36 weeks 4 days AC: 33.4 cm cm; 37 weeks 2 days FL: 6.9 cm cm; 35 weeks 2 days EFW: 2975.9 grams; 68% FL/AC: 20.6 FL/BPD: 76.8 HC/AC: 1.0 GESTATIONAL AGE: Age by EDC: 36 weeks 0 days MARIO by EDC: 11/19/2021 Age by US: 36 weeks, 2 days MARIO by US: 11/17/2021 IMPRESSION: 1. Single live intrauterine with growth detailed above. Electronically authenticated by: SAMIR SHANNON Date: 2021-10-22 16:21 Normal [facility] US PREG GROWTHon 09-25-2021 US PREG GROWTH EXAMINATION: US PREG GROWTH HISTORY: Large for gestation age fetus COMPARISON: Ultrasound anatomy 07/02/2021 FINDINGS: Heart Rate: 136.0 bpm Number: 1.0 Position: CEPHALIC Amniotic Fluid Volume: 21.1 cm Maximum Vertical Pocket: 7.2 cm BIOMETRY: BPD: 8.1 cm cm; 32 weeks 3 days HC: 30.2 cmcm; 33 weeks 4 days AC: 29.7 cm cm; 33 weeks 5 days FL: 6.4 cm cm; 33 weeks 0 days EFW: 2177.8 grams; 78% FL/AC: 21.5 FL/BPD: 78.9 HC/AC: 1.0 GESTATIONAL AGE: Age by EDC: 32 weeks 1 days MARIO by EDC: 11/19/2021 Age by US: 33 weeks 1 day MARIO by US: 11/12/2021 IMPRESSION: 1. Single live intrauterine with growth detailed above. Electronically authenticated by: SAMIR SHANNON Date: 2021-09-25 16:34 Normal [facility] CBC AUTO DIFFon 08-27-2021 BASO # 0.0 103/ul Normal 0.0-0.1 [facility] Comment on above: Performed By: #### C VDTBH #### [facility] [address] [place] [address] Dr. Nannette Baker Basophils/100 WBC (Bld) 0.3 % Normal 0.2-2.0 [facility] Comment on above: Performed By: #### C VDTBH #### [facility] [address] [place] [address] Dr. Nannette Baker EO # 0.1 103/ul Normal 0.0-0.7 [facility] Comment on above: Performed By: #### C VDTBH #### [facility] [address] [place] [address] Dr. Nannette Baker Eosinophils/100 WBC (Bld) 0.8 % Critically low 0.9-7.0 [facility] Comment on above: Performed By: #### C VDTBH #### [facility] [address] [place] [address] Dr. Nannette Baker Erythrocyte distribution width (RBC) [Ratio] 11.9 % Normal 11.0-15.0 [facility] Comment on above: Performed By: #### C VDTBH #### [facility] [address] [place] [address] Dr. Nannette Baker Hematocrit (Bld) [Volume fraction] 33.3 % Critically low 36.0-48.0 [facility] Comment on above: Performed By: #### C VDTBH #### [facility] [address] [place] [address] Dr. Nannette Baker Hemoglobin (Bld) [Mass/Vol] 11.3 g/dL Critically low 12.0-16.0 [facility] Comment on above: Performed By: #### C VDTBH #### [facility] [address] [place] [address] Dr. Nannette Baker IG # 0.07 10e3/ul Critically high 0.00-0.03 [facility] Comment on above: Performed By: #### C VDTBH #### [facility] [address] [place] [address] Dr. Nannette Baker IG % 0.6 % Critically high 0.0-0.5 [facility] Comment on above: Performed By: #### C VDTBH #### [facility] [address] [place] [address] Dr. Nannette Baker LYMPH # 1.3 103/ul Normal 1.2-3.8 [facility] Comment on above: Performed By: #### C VDTBH #### [facility] [address] [place] [address] Dr. Nannette Baker Lymphocytes/100 WBC (Bld) 10.8 % Critically low 20.5-60.0 [facility] Comment on above: Performed By: #### C VDTBH #### [facility] [address] [place] [address] Dr. Nannette Baker MANUAL DIFF REQ NO Normal [facility] Comment on above: Performed By: #### C VDTBH #### [facility] [address] [place] [address] Dr. Nannette Baker MCH (RBC) [Entitic mass] 32.1 pg Normal 26.7-34.0 [facility] Comment on above: Performed By: #### C VDTBH #### [facility] [address] [place] [address] Dr. Nannette Baker MCHC (RBC) [Mass/Vol] 33.9 g/dL Normal 29.9-35.2 [facility] Comment on above: Performed By: #### C VDTBH #### [facility] [address] [place] [address] Dr. Nannette Baker MCV (RBC) [Entitic vol] 94.6 fL Normal 81.0-99.0 [facility] Comment on above: Performed By: #### C VDTBH #### [facility] [address] [place] [address] Dr. Nannette Baker MONO # 0.5 103/ul Normal 0.3-0.8 [facility] Comment on above: Performed By: #### C VDTBH #### [facility] [address] [place] [address] Dr. Nannette Baker Monocytes/100 WBC (Bld) 4.5 % Normal 1.7-12.0 [facility] Comment on above: Performed By: #### C VDTBH #### [facility] [address] [place] [address] Dr. Nannette Baker NEUT # 10.1 103/ul Critically high 1.4-6.5 [facility] Comment on above: Performed By: #### C VDTBH #### [facility] [address] [place] [address] Dr. Nannette Baker Neutrophils/100 WBC (Bld) 83.0 % Critically high 43.0-75.0 [facility] Comment on above: Performed By: #### C VDTBH #### [facility] [address] [place] [address] Dr. Nannette Baker Platelet mean volume (Bld) [Entitic vol] 9.2 fL Critically low 9.5-13.5 [facility] Comment on above: Performed By: #### C VDTBH #### [facility] [address] [place] [address] Dr. Nannette Baker PLT 233 103/ul Normal 150-450 [facility] Comment on above: Performed By: #### C VDTBH #### [facility] [address] [place] [address] Dr. Nannette Baker RBC 3.52 106/ul Critically low 4.20-5.40 [facility] Comment on above: Performed By: #### C VDTBH #### [facility] [address] [place] [address] Dr. Nannette Baker WBC 12.1 103/ul Critically high 4.0-11.0 [facility] Comment on above: Performed By: #### C VDTBH #### [facility] [address] [place] [address] Dr. Nannette Baker GLUCOSE - 1HRon 08-23-2021 Glucose [Mass/Vol] 104 mg/dL Normal 74-106 [facility] Comment on above: Performed By: #### T HCCONF #### [facility] [address] [place] [address] Dr. Nannette Baker CHLAMYDIA/GONOCOCCUS CHARLENE ( AB/URINE/PAPon 08-02-2021 Chlamydia trachomatis, CHARLENE Negative Normal Negative [facility] Comment on above: Performed By: #### T HCCONF #### [facility] [address] [place] [address] Dr. Nannette Baker Neisseria gonorrhoeae, CHARLENE Negative Normal Negative [facility] Comment on above: Performed By: #### T HCCONF #### [facility] [address] [place] [address] Dr. Nannette Baker VAGINITIS/VAGINOSIS DNA PROB Dipak 08-01-2021 Niesha species Negative Normal Negative [facility] Comment on above: Performed By: #### V AGINT #### [facility] [address] [address] [address] Nannette Baker Gardnerella vaginalis Positive Abnormal Negative [facility] Comment on above: Performed By: #### V AGINT #### [facility] [address] [address] [address] Nannette Baker Trichomonas vaginalis Negative Normal Negative [facility] Comment on above: Performed By: #### V AGINT #### [facility] [address] [address] [address] Nannette Baker AFP MATERNAL FOR SPINA BIFID Aon 07-04-2021 AFP MoM 1.32 Normal [facility] Comment on above: Performed By: #### A FPMAT #### [facility] [address] [address] [address] Nannette Baker AFP Value 83.8 ng/mL Normal [facility] Comment on above: Performed By: #### A FPMAT #### [facility] [address] [address] [address] Nannetet Baker AFP, Serum for Spina Bifida Report Normal [facility] Comment on above: Performed By: #### A FPMAT #### [facility] [address] [address] [address] Nannette Baker Comment Comment Normal [facility] Comment on above: Result Comment: Jamar Muñiz, Ph.D., [facility] Director . References: Available Upon Request. . Multiples Of Median Cutoffs For AFP Elevations Springer 2.5 Black 2.8 IDD 2.0 Twins 4.5 Abbreviation Definitions IDD - Insulin Dep Diabetes OSBR - Open Spina Bifida Risk . For further inquiries contact [employer] [facility] at [phone]. Performed By: #### A FPMAT #### [facility] [address] [address] [address] Nannette Patrick Age Collection Date 20.0 weeks Normal [facility] Comment on above: Performed By: #### A FPMAT #### [facility] [address] [place] [address] Dr. Nannette Baker Gestat, Age Based on MARIO [facility] Comment on above: Result Comment: 10/25 Recalculations are not recommended when gestational dating by LMP and ultrasound are within 10 days. Performed By: #### A FPMAT #### [facility] [address] [address] [address] Nannette Baker Insulin Dep Diabetes No Normal [facility] Comment on above: Performed By: #### A FPMAT #### [facility] [address] [address] [address] Nannette Baker Interpretation Comment Normal [facility] Comment on above: Result Comment: Inte rpretation: Screen Negative . This result is screen negative for OSB. The AFP MoM calculated is based on the gestational age provided. MS-AFP can identify up to 80% of open neural tube defects. Closed neural tube defects and some open defects may not be detected by this test. This test does not screen for Down Syndrome or Trisomy 18. If screening for Down Syndrome or Trisomy 18 is desired, contact [employer] to discuss available options. The [employer] recommends amniocentesis be offered to women age 35 and older. Performed By: #### A FPMAT #### [facility] [address] [place] [address] Dr. Nannette Baker Maternal Age at MARIO 26.[address] [facility] Comment on above: Performed By: #### A FPMAT #### [facility] [address] [address] [address] Nannette Baker Multiple Gestation No Normal [facility] Comment on above: Performed By: #### A FPMAT #### [facility] [address] [address] [address] Nannette Baker OSBR Risk 1 [place] [address] [facility] Comment on above: Performed By: #### A FPMAT #### [facility] [address] [address] [address] Nannette Baker PDF . Normal [facility] Comment on above: Performed By: #### A FPMAT #### [facility] [address] [address] [address] Nannette Baker Race Normal [facility] Comment on above: Performed By: #### A FPMAT #### [facility] [address] [place] [address] Dr. Nannette Baker Test Results: Negative Normal [facility] Comment on above: Performed By: #### A FPMAT #### [facility] [address] [place] [address] Dr. Nannette Baker US PREG ANATOMY SINGLEon US PREG ANATOMY SINGLE EXAMINATION: US P REG ANATOMY SINGLE HISTORY: screening COMPARISON: No relevant comparison available. TECHNIQUE: Transabdominal sonographic examination was performed for obstetrical and evaluation. FINDINGS: Number: 1 Heart Rate: 149.0 bpm H.B. /min Amniotic Fluid Volume: Subjectively normal Placental Location: POSTERIOR with lower margin 5.0 cm from internal os. Cervix Length: 4.2 cm; closed. ANATOMY: Normal Structures -cerebellum, choroid plexus, cisterna magna, lateral cerebral ventricles, orbits, midline falx, hard palate, four-chamber heart, RVOT, LVOT, stomach, kidneys, bladder, umbilical cord insertion into abdomen, three-vessel cord, cervical spine, thoracic spine, lumbar spine, sacral spine, right upper extremity, left upper extremity, right lower extremity, left lower extremity. SUBOPTIMALLY SEEN: None ABNORMALITIES: None BIOMETRY: BPD: 4.7 cm 20 weeks 1 days HC: 18.0 cm 20 weeks 3 days AC: 15.6 cm 20 weeks 5 days FL: 3.4 cm 20 weeks 6 days EFW:371.5 grams; 83% FL/AC: 22.0 FL/BPD: 73.0 HC/AC: 1.2 GESTATIONAL AGE: Age by EDC: 20 weeks 0 days MARIO by EDC: 11/19/2021 Age by current US: 20 weeks 4 days MARIO by current US: 11/15/2021 IMPRESSION: 1. Single live intrauterine with growth detailed above. Electronically authenticated by: SAMIR SHANNON Date: 2021-07-02 12:33 Normal [facility] HEP B SURFACE ANTIGEN SCREEN on 05-02-2021 HBsAg Screen Negative Normal Negative [facility] Comment on above: Performed By: #### H BSANS #### [facility] [address] [place] [address] Dr. Nannette Baker HEPATITIS C VIRUS AB W/ REFL EX QUANTon 05-02-2021 HCV AB <0.1 Normal 0.0-0.9 [facility] Comment on above: Performed By: #### T HCCONF #### [facility] [address] [place] [address] Dr. Nannette Baker Interpretation: Comment Normal [facility] Comment on above: Result Comment: Nega tive Not infected with HCV, unless recent infection is suspected or other evidence exists to indicate HCV infection. Performed By: #### T HCCONF #### [facility] [address] [place] [address] Dr. Nannette Baker HIV 1 AND 2 WITH REFLEXon HIV Screen 4th Generation wRfx Non-Reactive Normal Non Reactive [facility] Comment on above: Result Comment: HIV Negative HIV-1/HIV-2 antibodies and HIV-1 p24 antigen were NOT detected. There is no laboratory evidence of HIV infection. Performed By: #### C VDTBH #### [facility] [address] [place] [address] Dr. Nannette Baker RPR QUANTon 05-02-2021 Rapid Plasma Reagin, Quant Non-Reactive Normal NonRea<1:1 [facility] Comment on above: Performed By: #### C VDTBH #### [facility] [address] [place] [address] Dr. Nannette Baker RUBELLA AB IGGon 05-02-2021 Rubella Antibodies, IgG 2.65 index Normal Immune >0.99 [facility] Comment on above: Result Comment: Non- immune <0.90 Equivocal 0.90 - 0.99 Immune >0.99 Performed By: #### R UBIGG #### [facility] [address] [place] [address] Dr. Nannette Baker CBC AUTO DIFFon 04-30-2021 BASO # 0.1 103/ul Normal 0.0-0.1 [facility] Comment on above: Performed By: #### T HCCONF #### [facility] [address] [place] [address] Dr. Nannette Baker Basophils/100 WBC (Bld) 0.5 % Normal 0.2-2.0 [facility] Comment on above: Performed By: #### T HCCONF #### [facility] [address] [place] [address] Dr. Nannette Baker EO # 0.2 103/ul Normal 0.0-0.7 [facility] Comment on above: Performed By: #### T HCCONF #### [facility] [address] [place] [address] Dr. Nannette Baker Eosinophils/100 WBC (Bld) 1.5 % Normal 0.9-7.0 [facility] Comment on above: Performed By: #### T HCCONF #### [facility] [address] [place] [address] Dr. Nannette Baker Erythrocyte distribution width (RBC) [Ratio] 11.9 % Normal 11.0-15.0 [facility] Comment on above: Performed By: #### T HCCONF #### [facility] [address] [place] [address] Dr. Nannette Baker Hematocrit (Bld) [Volume fraction] 33.9 % Critically low 36.0-48.0 [facility] Comment on above: Performed By: #### T HCCONF #### [facility] [address] [place] [address] Dr. Nannette Baker Hemoglobin (Bld) [Mass/Vol] 11.9 g/dL Critically low 12.0-16.0 [facility] Comment on above: Performed By: #### T HCCONF #### [facility] [address] [place] [address] Dr. Nannette Baker IG # 0.02 10e3/ul Normal 0.00-0.03 [facility] Comment on above: Performed By: #### T HCCONF #### [facility] [address] [place] [address] Dr. Nannette Baker IG % 0.2 % Normal 0.0-0.5 [facility] Comment on above: Performed By: #### T HCCONF #### [facility] [address] [address] [address] Nannette Baker LYMPH # 1.8 103/ul Normal 1.2-3.8 [facility] Comment on above: Performed By: #### T HCCONF #### [facility] [address] [address] [address] Nannette Baker Lymphocytes/100 WBC (Bld) 17.3 % Critically low 20.5-60.0 [facility] Comment on above: Performed By: #### T HCCONF #### [facility] [address] [place] [address] Dr. Nannette Baker MANUAL DIFF REQ NO Normal [facility] Comment on above: Performed By: #### T HCCONF #### [facility] [address] [place] [address] Dr. Nannette Baker MCH (RBC) [Entitic mass] 31.7 pg Normal 26.7-34.0 [facility] Comment on above: Performed By: #### T HCCONF #### [facility] [address] [place] [address] Dr. Nannette Baker MCHC (RBC) [Mass/Vol] 35.1 g/dL Normal 29.9-35.2 [facility] Comment on above: Performed By: #### T HCCONF #### [facility] [address] [place] [address] Dr. Nannette Baker MCV (RBC) [Entitic vol] 90.4 fL Normal 81.0-99.0 [facility] Comment on above: Performed By: #### T HCCONF #### [facility] [address] [place] [address] Dr. Nannette Baker MONO # 0.5 103/ul Normal 0.3-0.8 [facility] Comment on above: Performed By: #### T HCCONF #### [facility] [address] [place] [address] Dr. Nannette Baker Monocytes/100 WBC (Bld) 4.2 % Normal 1.7-12.0 [facility] Comment on above: Performed By: #### T HCCONF #### [facility] [address] [address] [address] Nannette Baker NEUT # 8.1 103/ul Critically high 1.4-6.5 [facility] Comment on above: Performed By: #### T HCCONF #### [facility] [address] [address] [address] Nannette Baker Neutrophils/100 WBC (Bld) 76.3 % Critically high 43.0-75.0 [facility] Comment on above: Performed By: #### T HCCONF #### [facility] [address] [address] [address] Nannette Baker Platelet mean volume (Bld) [Entitic vol] 9.3 fL Critically low 9.5-13.5 [facility] Comment on above: Performed By: #### T HCCONF #### [facility] [address] [address] [address] Nannette Baker PLT 257 103/ul Normal 150-450 [facility] Comment on above: Performed By: #### T HCCONF #### [facility] [address] [address] [address] Nannette Baker RBC 3.75 106/ul Critically low 4.20-5.40 [facility] Comment on above: Performed By: #### T HCCONF #### [facility] [address] [address] [address] Nannette Baker WBC 10.6 103/ul Normal 4.0-11.0 [facility] Comment on above: Performed By: #### T HCCONF #### [facility] [address] [address] [address] Nannette Baker CULTURE URINEon 04-30-2021 CULTURE URINE Culture Observations: LIGHT GROWTH OF MIXED GENITAL RENETTA. NO POTENTIAL PATHOGENS SEEN. Normal [facility] Comment on above: Performed By: #### U RCX #### [facility] [address] [address] [address] Nannette Baker GLYCOHEMOGLOBIN A1Con 2021 ADA RECOMMENDATION ADA THERAPEUTIC TARGET 6.0 - 7.0 ACTION SUGGESTED > 7.0 Normal [facility] Comment on above: Performed By: #### T HCCONF #### [facility] [address] [place] [address] Dr. Nannette Baker Glucose [Mass/Vol] 91 mg/dL Normal [facility] Comment on above: Performed By: #### T HCCONF #### [facility] [address] [place] [address] Dr. Nannette Baker HbA1c (Bld) [Mass fraction] 4.8 % Normal <=6.0 [facility] Comment on above: Performed By: #### T HCCONF #### [facility] [address] [place] [address] Dr. Nannette Baker MANNY BOX TEST PT SEND OUTo n 04-30-2021 SENT TO REF LAB 04/30/2021 Normal [facility] Comment on above: Performed By: #### C VDTBH #### [facility] [address] [place] [address] Dr. Nannette Baker TYPE AND SCREENon 04-30-2021 TYPE AND SCREEN Negative Normal [facility] Comment on above: Performed By: #### C VDTBH #### [facility] [address] [place] [address] Dr. Nannette Baker US PREG TVon 04-05-2021 US PREG TV EXAMINATION: US PREG TV HISTORY: Missed period COMPARISON: No relevant comparison available. FINDINGS: Transvaginal images Springer intrauterine gestation Gestational sac: 2.33 cm, 7 weeks 2 days CRL: 1.24 cm, 7 weeks 3 days Yolk sac: 0.373 cm Heart rate: 145 bpm Cervix: Closed, 5.7 cm The uterus is normal in appearance. Anteverted, anteflexed The right ovary is normal in appearance measuring 2.8 x 1.9 x 2.1 cm. Left ovary measures 3. 0.0 x 2.0 cm. Corpus luteal cyst. Clinical age: 8 weeks 4 days Clinical MARIO: 11/12/2019 Ultrasound age: 7 weeks 3 days Ultrasound MARIO: 11/18/2021 IMPRESSION: Viable springer intrauterine gestation measuring 7 weeks 3 days Electronically authenticated by: WENDY POZO Date: 2021-04-05 09:09 Normal [facility] Vital Signs Date Time Vital Sign Value Performing Clinician Facility 01-02-2023 13:00-0500 Diastolic blood pressure 80 mm[Hg] [facility] 01-02-2023 13:00-0500 Heart rate 60 /min [facility] 01-02-2023 13:00-0500 Respiratory rate 14 /min [facility] 01-02-2023 13:00-0500 Systolic blood pressure 110 mm[Hg] [facility] 01-02-2023 10:19-0500 Diastolic blood pressure 81 mm[Hg] [facility] 01-02-2023 10:19-0500 Heart rate 67 /min [facility] 01-02-2023 10:19-0500 Mean blood pressure 90 mm[Hg] [facility] 01-02-2023 10:19-0500 Respiratory rate 16 /min [facility] 01-02-2023 10:19-0500 SaO2% (BldA) [Mass fraction] 100 % [facility] 01-02-2023 10:19-0500 Systolic blood pressure 107 mm[Hg] [facility] 01-02-2023 08:58-0500 Body temperature 97.88 [degF] [facility] 01-02-2023 08:58-0500 Diastolic blood pressure 77 mm[Hg] [facility] 01-02-2023 08:58-0500 Heart rate 77 /min [facility] 01-02-2023 08:58-0500 Respiratory rate 18 /min [facility] 01-02-2023 08:58-0500 Systolic blood pressure 125 mm[Hg] [facility] 06-21-2022 05:00-0400 Diastolic blood pressure 80 mm[Hg] Ritesh Crain [facility] 06-21-2022 05:00-0400 Heart rate 65 /min Ritesh Naida [facility] 06-21-2022 05:00-0400 Hourly Rounding Ritesh Naida [facility] 06-21-2022 05:00-0400 Promise to Return Ritesh Naida [facility] 06-21-2022 05:00-0400 Respiratory rate 12 /min Ritesh Naida [facility] 06-21-2022 05:00-0400 SaO2% (BldA) [Mass fraction] 99 % Ritesh Naida [facility] 06-21-2022 05:00-0400 Systolic blood pressure 121 mm[Hg] Ritesh Naida [facility] 06-21-2022 04:00-0400 Diastolic blood pressure 79 mm[Hg] Ritesh Naida [facility] 06-21-2022 04:00-0400 Heart rate 67 /min Ritesh Naida [facility] 06-21-2022 04:00-0400 Hourly Rounding Ritesh Naida [facility] 06-21-2022 04:00-0400 Promise to Return Ritesh Naida [facility] 06-21-2022 04:00-0400 Respiratory rate 16 /min Ritesh Naida [facility] 06-21-2022 04:00-0400 SaO2% (BldA) [Mass fraction] 100 % Ritesh Naida [facility] 06-21-2022 04:00-0400 Systolic blood pressure 116 mm[Hg] Ritesh Naida [facility] 06-21-2022 03:00-0400 Diastolic blood pressure 78 mm[Hg] Ritesh Naida [facility] 06-21-2022 03:00-0400 Heart rate 64 /min Ritesh Naida [facility] 06-21-2022 03:00-0400 Hourly Rounding Ritesh Pascal [facility] 06-21-2022 03:00-0400 Promise to Return Ritesh Naida [facility] 06-21-2022 03:00-0400 Systolic blood pressure 118 mm[Hg] Ritesh Naida [facility] 06-20-2022 23:24-0400 Body temperature 98.24 [degF] Ritesh Pascal [facility] 07-04-2021 02:06-0400 Body weight 62.[address] GINNY REBOLLEDO [facility] Comment on above: Performed By: #### AFPMAT #### [facility] [address] [place] [address] Dr. Nannette Baker Encounters Encounter Date Encounter Type Care Provider Facility Start: 01-22-2023 End: 01-22-2023 ambulatory Not Available Start: 01-02-2023 End: 01-02-2023 Emergency department patient visit Amado Westbren Facility:[facility] Start: 01-02-2023 End: 01-02-2023 Emergency department patient visit Amado Westbren [facility] Start: 06-21-2022 End: 06-21-2022 Emergency department patient visit Ritesh Pascal Facility:[facility] Start: 06-20-2022 End: 06-21-2022 Emergency department patient visit Ritesh Pascal [facility] Start: 11-12-2021 End: 11-13-2021 Evaluation and management of inpatient DR GINNY REBOLLEDO Facility:[facility] Start: 10-22-2021 End: 10-22-[address] GINNY REBOLLEDO Facility:[facility] Start: 10-22-2021 End: 10-23-[address] GINNY REBOLLEDO Facility:[facility] Start: 09-25-2021 End: 09-26-[address] GINNY REBOLLEDO Facility:[facility] Start: 08-27-2021 End: 08-28-[address] DOCTOR WOODS Facility:[facility] Start: 08-23-2021 End: 08-24-[address] GINNY REBOLLEDO Facility:[facility] Start: 07-30-2021 End: 07-30-[address] GINNY REBOLLEDO Facility:[facility] Start: 07-02-2021 End: 07-03-[address] GINNY REBOLLEDO Facility:[facility] Start: 07-02-2021 End: 07-03-[address] GINNY REBOLLEDO Facility:[facility] Start: 04-30-2021 End: 05-01-[address] GINNY REBOLLEDO Facility:[facility] Start: 04-05-2021 End: 04-06-[address] GINNY REBOLLEDO Facility:[facility] Procedures Date Procedure Procedure Detail Performing Clinician Start: 11-12-2021 Delivery of Products of Conception, External Approach DR GINNY REBOLLEDO Start: 11-12-2021 Drainage of Amniotic Fluid, Therapeutic from Products of Conception, Via Natural or Artificial Opening DR GINNY REBOLLEDO Start: 11-12-2021 Repair Perineum Skin , External Approach DR GINNY REBOLLEDO None (qualifier value) Ritesh Pascal Immunizations Immunization Date Immunization Notes Care Provider Flavia gilliam 08-11-2016 tetanus toxoid, redu angelica diphtheria toxoid, and acellular pertussis vaccine, adsorbed Ritesh Pascal [facility] Payers Date Payer Category Payer Unknown [id number] 1997 Unknown [id number] 1997 Unknown [id number] 1997 Unknown [id number] 2.16.84 [id number] 1997 Unknown [id number] 2.16.84 [id number] 1997 Unknown [id number] 2.16.84 [id number] 1997 Unknown [id number] 2.16.84 0.1.257519.3.579.2.593 1997 Unknown [id number] 2.16.84 0.1.409088.3.579.2.593 1997 Unknown [id number] 2.16.84 [id number] 1997 Unknown [id number] 2.16.84 0.1.054047.3.579.2.593 1997 Unknown [id number] 2.16.84 0.1.558246.3.579.2.593 1997 Unknown [id number] 2.16.8 [id number] 1997 Unknown [id number] 2.16.8 40.1.889105.3.579.2.727 1997 Unknown [id number] 2.16.840 .[id number] 1959 Self-pay 1959 Unknown [id number] 1959 Unknown [id number] Unknown [id number] 2.16.84 [id number] Social History Date Type Detail Facility Tobacco [facility] Comment on above: Denies. Tobacco smoking status No Smokin g Status Entered [facility] Sex Assigned At Female [facility] Functional Status Date Assessment Result Facility 01-02-2023 Functional Status N/A [facility] 06-20-2022 Functional Status N/A [facility] Hospital Discharge instructions 01-02-2023 Note Date & Type Note Facility 01-02-2023 Hospital Discharg e instructions Patient Education 01/02/2023 13:45:55 First Trimester of First Trimester of The first trimester of starts on the first day of your last menstrual period until the end of week 12. This is months 1 through 3 of . A week after a sperm fertilizes an egg, the egg will implant into the wall of the uterus and begin to develop into a baby. By the end of 12 weeks, all the baby's organs will be formed and the baby will be 2 3 inches in size. Body changes during your first trimester Your body goes through many changes during . The changes vary and generally return to normal after your baby is born. Physical changes You may gain or lose weight. Your breasts may begin to grow larger and become tender. The tissue that surrounds your nipples (areola) may become darker. Dark spots or blotches (chloasma or mask of ) may develop on your face. You may have changes in your hair. These can include thickening or thinning of your hair or changes in texture. Health changes You may feel nauseous, and you may vomit. You may have heartburn. You may develop headaches. You may develop constipation. Your gums may bleed and may be sensitive to brushing and flossing. Other changes You may tire easily. You may urinate more often. Your menstrual periods will stop. You may have a loss of appetite. You may develop cravings for certain kinds of food. You may have changes in your emotions from day to day. You may have more vivid and strange dreams. Follow these instructions at home: Medicines Follow your health care provider's instructions regarding medicine use. Specific medicines may be either safe or unsafe to take during . Do not take any medicines unless told to by your health care provider. Take a vitamin that contains at least 600 micrograms (mcg) of folic acid. Eating and drinking Eat a healthy diet that includes fresh fruits and vegetables, whole grains, good sources of protein such as meat, eggs, or tofu, and low-fat dairy products. Avoid raw meat and unpasteurized juice, milk, and cheese. These carry germs that can harm you and your baby. If you feel nauseous or you vomit: ?Eat 4 or 5 small meals a day instead of 3 large meals. ?Try eating a few soda crackers. ?Drink liquids between meals instead of during meals. You may need to take these actions to prevent or treat constipation: ?Drink enough fluid to keep your urine pale yellow. ?Eat foods that are high in fiber, such as beans, whole grains, and fresh fruits and vegetables. ?Limit foods that are high in fat and processed sugars, such as fried or sweet foods. Activity Exercise only as directed by your health care provider. Most people can continue their usual exercise routine during . Try to exercise for 30 minutes at least 5 days a week. Stop exercising if you develop pain or cramping in the lower abdomen or lower back. Avoid exercising if it is very hot or humid or if you are at high altitude. Avoid heavy lifting. If you choose to, you may have sex unless your health care provider tells you not to. Relieving pain and discomfort Wear a good support bra to relieve breast tenderness. Rest with your legs elevated if you have leg cramps or low back pain. If you develop bulging veins (varicose veins) in your legs: ?Wear support hose as told by your health care provider. ?Elevate your feet for 15 minutes, 3 4 times a day. ?Limit salt in your diet. Safety Wear your seat belt at all times when driving or riding in a car. Talk with your health care provider if someone is verbally or physically abusive to you. Talk with your health care provider if you are feeling sad or have thoughts of hurting yourself. Lifestyle Do not use hot tubs, steam rooms, or saunas. Do not douche. Do not use tampons or scented sanitary pads. Do not use herbal remedies, alcohol, illegal drugs, or medicines that are not approved by your health care provider. Chemicals in these products can harm your baby. Do not use any products that contain nicotine or tobacco, such as cigarettes, e-cigarettes, and chewing tobacco. If you need help quitting, ask your health care provider. Avoid cat litter boxes and soil used by cats. These carry germs that can cause defects in the baby and possibly loss of the unborn baby (fetus) by miscarriage or stillbirth. General instructions During routine visits in the first trimester, your health care provider will do a physical exam, perform necessary tests, and ask you how things are going. Keep all follow-up visits. This is important. Ask for help if you have counseling or nutritional needs during . Your health care provider can offer advice or refer you to specialists for help with various needs. Schedule a dentist appointment. At home, brush your teeth with a soft toothbrush. Floss gently. Write down your questions. Take them to your visits. Where to find more information [place] [employer]: americanpregnancy.org [employer]: acog.org/en/Womens%20Health/Preg petar Office on Women's Health: womenshealth.gov/ Contact a health care provider if you have: Dizziness. A fever. Mild pelvic cramps, pelvic pressure, or nagging pain in the abdominal area. Nausea, vomiting, or diarrhea that lasts for 24 hours or longer. A bad-smelling vaginal discharge. Pain when you urinate. Known exposure to a contagious illness, such as chickenpox, measles, Zika virus, HIV, or hepatitis. Get help right away if you have: Spotting or bleeding from your vagina. Severe abdominal cramping or pain. Shortness of breath or chest pain. Any kind of trauma, such as from a fall or a car crash. New or increased pain, swelling, or redness in an arm or leg. Summary The first trimester of starts on the first day of your last menstrual period until the end of week 12 (months 1 through 3). Eating 4 or 5 small meals a day rather than 3 large meals may help to relieve nausea and vomiting. Do not use any products that contain nicotine or tobacco, such as cigarettes, e-cigarettes, and chewing tobacco. If you need help quitting, ask your health care provider. Keep all follow-up visits. This is important. This information is not intended to replace advice given to you by your health care provider. Make sure you discuss any questions you have with your health care provider. Document Revised: 07/18/2020 Document Reviewed: 05/24/2020 [employer] Patient Education 2022 [employer]. 01/02/2023 13:45:55 Diarrhea, Adult Diarrhea, Adult Diarrhea is frequent loose and watery bowel movements. Diarrhea can make you feel weak and cause you to become dehydrated. Dehydration can make you tired and thirsty, cause you to have a dry mouth, and decrease how often you urinate. Diarrhea typically lasts 2 3 days. However, it can last longer if it is a sign of something more serious. It is important to treat your diarrhea as told by your health care provider. Follow these instructions at home: Eating and drinking Follow these recommendations as told by your health care provider: Take an oral rehydration solution (ORS). This is an ukbj-vnv-fzvmsfo medicine that helps return your body to its normal balance of nutrients and water. It is found at pharmacies and retail stores. Drink plenty of fluids, such as water, ice chips, diluted fruit juice, and low-calorie sports drinks. You can drink milk also, if desired. Avoid drinking fluids that contain a lot of sugar or caffeine, such as energy drinks, sports drinks, and soda. Eat bland, ciso-jb-kkmbcr foods in small amounts as you are able. These foods include bananas, applesauce, rice, lean meats, toast, and crackers. Avoid alcohol. Avoid spicy or fatty foods. Medicines Take alxf-rlq-dhzwoxw and prescription medicines only as told by your health care provider. If you were prescribed an antibiotic medicine, take it as told by your health care provider. Do not stop using the antibiotic even if you start to feel better. General instructions Wash your hands often using soap and water. If soap and water are not available, use a hand transfer man. Others in the household should wash their hands as well. Hands should be washed: ?After using the toilet or changing a diaper. ?Before preparing, cooking, or serving food. ?While caring for a sick person or while visiting someone in a hospital. Drink enough fluid to keep your urine pale yellow. Rest at home while you recover. Watch your condition for any changes. Take a warm bath to relieve any burning or pain from frequent diarrhea episodes. Keep all follow-up visits as told by your health care provider. This is important. Contact a health care provider if: You have a fever. Your diarrhea gets worse. You have new symptoms. You cannot keep fluids down. You feel light-headed or dizzy. You have a headache. You have muscle cramps. Get help right away if: You have chest pain. You feel extremely weak or you faint. You have bloody or black stools or stools that look like tar. You have severe pain, cramping, or bloating in your abdomen. You have trouble breathing or you are breathing very quickly. Your heart is beating very quickly. Your skin feels cold and clammy. You feel confused. You have signs of dehydration, such as: ?Dark urine, very little urine, or no urine. ?Cracked lips. ?Dry mouth. ?Sunken eyes. ?Sleepiness. ?Weakness. Summary Diarrhea is frequent loose and sometimes watery bowel movements. Diarrhea can make you feel weak and cause you to become dehydrated. Drink enough fluids to keep your urine pale yellow. Make sure that you wash your hands after using the toilet. If soap and water are not available, use hand transfer man. Contact a health care provider if your diarrhea gets worse or you have new symptoms. Get help right away if you have signs of dehydration. This information is not intended to replace advice given to you by your health care provider. Make sure you discuss any questions you have with your health care provider. Document Revised: 08/21/2021 Document Reviewed: 08/21/2021 [employer] Patient Education 2022 [employer]. 01/02/2023 13:45:55 Nausea and Vomiting, Adult Nausea and Vomiting, Adult Nausea is the feeling that you have an upset stomach or that you are about to vomit. As nausea gets worse, it can lead to vomiting. Vomiting is when stomach contents forcefully come out of your mouth as a result of nausea. Vomiting can make you feel weak and cause you to become dehydrated. Dehydration can make you feel tired and thirsty, cause you to have a dry mouth, and decrease how often you urinate. Older adults and people with other diseases or a weak disease-fighting system (immune system) are at higher risk for dehydration. It is important to treat your nausea and vomiting as told by your health care provider. Follow these instructions at home: Watch your symptoms for any changes. Tell your health care provider about them. Eating and drinking Take an oral rehydration solution (ORS). This is a drink that is sold at pharmacies and retail stores. Drink clear fluids slowly and in small amounts as you are able. Clear fluids include water, ice chips, low-calorie sports drinks, and fruit juice that has water added (diluted fruit juice). Eat bland, pchw-vd-zuxbyn foods in small amounts as you are able. These foods include bananas, applesauce, rice, lean meats, toast, and crackers. Avoid fluids that contain a lot of sugar or caffeine, such as energy drinks, sports drinks, and soda. Avoid alcohol. Avoid spicy or fatty foods. General instructions Take njtl-bbn-skemogx and prescription medicines only as told by your health care provider. Drink enough fluid to keep your urine pale yellow. Wash your hands often using soap and water for at least 20 seconds. If soap and water are not available, use hand transfer man. Make sure that everyone in your household washes their hands well and often. Rest at home while you recover. Watch your condition for any changes. Take slow and deep breaths when you feel nauseous. Keep all follow-up visits. This is important. Contact a health care provider if: Your symptoms get worse. You have new symptoms. You have a fever. You cannot drink fluids without vomiting. Your nausea does not go away after 2 days. You feel light-headed or dizzy. You have a headache. You have muscle cramps. You have a rash. You have pain while urinating. Get help right away if: You have pain in your chest, neck, arm, or jaw. You feel extremely weak or you faint. You have persistent vomiting. You have vomit that is bright red or looks like black coffee grounds. You have bloody or black stools (feces) or stools that look like tar. You have a severe headache, a stiff neck, or both. You have severe pain, cramping, or bloating in your abdomen. You have difficulty breathing, or you are breathing very quickly. Your heart is beating very quickly. Your skin feels cold and clammy. You feel confused. You have signs of dehydration, such as: ?Dark urine, very little urine, or no urine. ?Cracked lips. ?Dry mouth. ?Sunken eyes. ?Sleepiness. ?Weakness. These symptoms may be an emergency. Get help right away. Call 911. Do not wait to see if the symptoms will go away. Do not drive yourself to the hospital. Summary Nausea is the feeling that you have an upset stomach or that you are about to vomit. As nausea gets worse, it can lead to vomiting. Vomiting can make you feel weak and cause you to become dehydrated. Follow instructions from your health care provider about eating and drinking to prevent dehydration. Take opal-pjc-teyaill and prescription medicines only as told by your health care provider. Contact your health care provider if your symptoms get worse, or you have new symptoms. Keep all follow-up visits. This is important. This information is not intended to replace advice given to you by your health care provider. Make sure you discuss any questions you have with your health care provider. Document Revised: 08/16/2021 Document Reviewed: 08/16/2021 [employer] Patient Education 2022 [employer]. 01/02/2023 13:45:55 Abdominal Pain, Adult Abdominal Pain, Adult Pain in the abdomen (abdominal pain) can be caused by many things. Often, abdominal pain is not serious and it gets better with no treatment or by being treated at home. However, sometimes abdominal pain is serious. Your health care provider will ask questions about your medical history and do a physical exam to try to determine the cause of your abdominal pain. Follow these instructions at home: Medicines Take phma-tug-pbzcugc and prescription medicines only as told by your health care provider. Do not take a laxative unless told by your health care provider. General instructions Watch your condition for any changes. Drink enough fluid to keep your urine pale yellow. Keep all follow-up visits as told by your health care provider. This is important. Contact a health care provider if: Your abdominal pain changes or gets worse. You are not hungry or you lose weight without trying. You are constipated or have diarrhea for more than 2 3 days. You have pain when you urinate or have a bowel movement. Your abdominal pain wakes you up at night. Your pain gets worse with meals, after eating, or with certain foods. You are vomiting and cannot keep anything down. You have a fever. You have blood in your urine. Get help right away if: Your pain does not go away as soon as your health care provider told you to expect. You cannot stop vomiting. Your pain is only in areas of the abdomen, such as the right side or the left lower portion of the abdomen. Pain on the right side could be caused by appendicitis. You have bloody or black stools, or stools that look like tar. You have severe pain, cramping, or bloating in your abdomen. You have signs of dehydration, such as: ?Dark urine, very little urine, or no urine. ?Cracked lips. ?Dry mouth. ?Sunken eyes. ?Sleepiness. ?Weakness. You have trouble breathing or chest pain. Summary Often, abdominal pain is not serious and it gets better with no treatment or by being treated at home. However, sometimes abdominal pain is serious. Watch your condition for any changes. Take pqyo-jkg-byhvvjs and prescription medicines only as told by your health care provider. Contact a health care provider if your abdominal pain changes or gets worse. Get help right away if you have severe pain, cramping, or bloating in your abdomen. This information is not intended to replace advice given to you by your health care provider. Make sure you discuss any questions you have with your health care provider. Document Revised: 03/30/2020 Document Reviewed: 06/20/2019 [employer] Patient Education 2022 [employer] Follow Up Care 01/02/2023 08:54:27 With:Ginny REBOLLEDO Address: [address] [place] [address] [facility] (1) When:01/05/2023 13:27:46 Comments:Make sure to follow-up with Dr. Rebolledo for your . Follow-up with Dr. Cuellar for the belly pain. Return to the emergency room if the abdominal pain recurs, vomiting recurs, vaginal bleeding or any new symptoms. With:Patricia Murrieta Address:Unknown When:01/05/2023 13:27:38 [facility] Evaluation + Plan note 01-02-2023 Note Date & Type Note Facility 01-02-2023 Evaluation + Plan note Extrac jsoe alfredo from: Title:ED Note Author:Amado Rodriguez M.D. te:01/02/23 1. Abdominal pain (R10.9: Un specified abdominal pain) 2. Vomiting and diarrhea (R11.10: Vomiting, unspecified) 3. Intrauterine (Z34.90: Encounter for supervision of normal , unspecified, unspecified trimester) Diarrhea, unspecified (R19.7: Diarrhea, unspecified) Orders: acetaminophen + Generic Diluent 100 mL, 1,000 mg = 100 mL, Soln-IV, IV Piggyback, Once, Stop date 01/02/23 10:12:00 EST, STAT, Start date 01/02/23 10:12:00 EST, 400 mL/hr, Infuse over 15 minute(s) dicyclomine, 20 mg = 2 mL, Injection, IntraMuscular, Once, Stop date 01/02/23 9:08:00 EST, STAT, Start date 01/02/23 9:08:00 EST, 01/02/23 9:08:00 EST dicyclomine, 20 mg = 2 cap(s), Oral, QID, # 20 cap(s), Refills(s) 0, Pharmacy: [facility]/pharmacy #[id number], 160.1, cm, 01/02/23 9:00:00 EST, Height/Length Dosing, 58.8, kg, 01/02/23 9:00:00 EST, Weight Dosing famotidine, 20 mg = 2 mL, Soln-IV, IV Push, Once, Stop date 01/02/23 10:16:00 EST, STAT, Start date 01/02/23 10:16:00 EST, 01/02/23 10:16:00 EST nalbuphine, 5 mg = 0.5 mL, Injection, IV Push, Once, Stop date 01/02/23 11:40:00 EST, STAT, Start date 01/02/23 11:40:00 EST, 01/02/23 11:40:00 EST ondansetron, 4 mg = 2 mL, Injection, IV Push, Once, Stop date 01/02/23 9:08:00 EST, STAT, Start date 01/02/23 9:08:00 EST, 01/02/23 9:08:00 EST ondansetron, 4 mg = 1 tab(s), Oral, q6hr, PRN Nausea/Vomiting, # 12 tab(s), Refills(s) 0, Pharmacy: [facility]/pharmacy #[id number], 160.1, cm, 01/02/23 9:00:00 EST, Height/Length Dosing, 58.8, kg, 01/02/23 9:00:00 EST, Weight Dosing Sodium Chloride 0.9% intravenous solution, 1,000 mL, Soln-IV, IV, Once, Stop date 01/02/23 9:08:00 EST, STAT, Start date 01/02/23 9:08:00 EST, Infuse over 61, minute(s) Automated Diff Basic Metabolic Panel Beta hCG Quantitative CBC w/ Auto Diff eGFR Extra SST Tube Hepatic Function Panel Lipase Level PT & PTT UA With Cult Reflex Urinary Catheter Insertion US Gallbladder US 1st Trimester US Transvaginal [facility] Evaluation + Plan note 06-21-2022 Note Date & Type Note Facility 06-21-2022 Evaluation + Plan note Extrac jose alfredo from: Title:ED Note Author:Ritesh Pascal DO Date :06/21/22 Abdominal pain, acute (R10.9 : Unspecified abdominal pain) Orders: HYDROmorphone, 0.5 mg = 0.5 mL, Injection, IV Push, Once, Stop date 06/21/22 0:14:00 EDT, STAT, Start date 06/21/22 0:14:00 EDT, 06/21/22 0:14:00 EDT ketorolac, 15 mg = 1 mL, Injection, IV Push, Once, Stop date 06/21/22 1:08:00 EDT, STAT, Start date 06/21/22 1:08:00 EDT, 06/21/22 1:08:00 EDT naproxen, 500 mg = 1 tab(s), Oral, BID, PRN Pain, # 14 tab(s), Refills(s) 0, Pharmacy: [facility]/pharmacy #[id number], 160, cm, 06/20/22 23:30:00 EDT, Height/Length Dosing, 55, kg, 06/20/22 23:30:00 EDT, Weight Dosing ondansetron, Injection, Misc, Once, Stop date 06/20/22 23:33:33 EDT, Physician Stop, 06/20/22 23:33:33 EDT ondansetron, 4 mg = 2 mL, Injection, IV Push, Once, Stop date 06/20/22 23:37:00 EDT, Start date 06/20/22 23:37:00 EDT ondansetron, 4 mg = 2 mL, Injection, IV Push, Once, Stop date 06/20/22 23:38:00 EDT, STAT, Start date 06/20/22 23:38:00 EDT, 06/20/22 23:38:00 EDT ondansetron, 4 mg = 1 tab(s), Oral, q8hr, PRN Nausea/Vomiting, # 16 tab(s), Refills(s) 0, Pharmacy: [facility]/pharmacy #[id number], 160, cm, 06/20/22 23:30:00 EDT, Height/Length Dosing, 55, kg, 06/20/22 23:30:00 EDT, Weight Dosing promethazine, 12.5 mg = 0.5 mL, Injection, IV Push, Once, Stop date 06/21/22 1:08:00 EDT, STAT, Start date 06/21/22 1:08:00 EDT, 06/21/22 1:08:00 EDT Sodium Chloride 0.9% intravenous solution, Soln-IV, Misc, Once, Stop date 06/20/22 23:33:21 EDT, Physician Stop, 06/20/22 23:33:21 EDT Sodium Chloride 0.9% intravenous solution, 1,000 mL, IV Push, Stop date 06/20/22 23:37:00 EDT, Start date 06/20/22 23:37:00 EDT Sodium Chloride 0.9% intravenous solution, 1,000 mL, Soln-IV, IV, Once, Stop date 06/20/22 23:38:00 EDT, STAT, Start date 06/20/22 23:38:00 EDT, Infuse over 61, minute(s) Automated Diff Basic Metabolic Panel Beta hCG Qual CBC w/ Auto Diff CT Abdomen/Pelvis w/ Contrast eGFR Hepatic Function Panel Lipase Level Saline Lock Insert UA With Cult Reflex US Pelvis Non-OB Complete [facility] Hospital Discharge instructions 06-21-2022 Note Date & Type Note Facility 06-21-2022 Hospital Discharg e instructions Patient Education 06/21/2022 05:06:52 Abdominal Pain, Adult Abdominal Pain, Adult Pain in the abdomen (abdominal pain) can be caused by many things. Often, abdominal pain is not serious and it gets better with no treatment or by being treated at home. However, sometimes abdominal pain is serious. Your health care provider will ask questions about your medical history and do a physical exam to try to determine the cause of your abdominal pain. Follow these instructions at home: Medicines Take bdhi-arv-qjfadvb and prescription medicines only as told by your health care provider. Do not take a laxative unless told by your health care provider. General instructions Watch your condition for any changes. Drink enough fluid to keep your urine pale yellow. Keep all follow-up visits as told by your health care provider. This is important. Contact a health care provider if: Your abdominal pain changes or gets worse. You are not hungry or you lose weight without trying. You are constipated or have diarrhea for more than 2 3 days. You have pain when you urinate or have a bowel movement. Your abdominal pain wakes you up at night. Your pain gets worse with meals, after eating, or with certain foods. You are vomiting and cannot keep anything down. You have a fever. You have blood in your urine. Get help right away if: Your pain does not go away as soon as your health care provider told you to expect. You cannot stop vomiting. Your pain is only in areas of the abdomen, such as the right side or the left lower portion of the abdomen. Pain on the right side could be caused by appendicitis. You have bloody or black stools, or stools that look like tar. You have severe pain, cramping, or bloating in your abdomen. You have signs of dehydration, such as: ?Dark urine, very little urine, or no urine. ?Cracked lips. ?Dry mouth. ?Sunken eyes. ?Sleepiness. ?Weakness. You have trouble breathing or chest pain. Summary Often, abdominal pain is not serious and it gets better with no treatment or by being treated at home. However, sometimes abdominal pain is serious. Watch your condition for any changes. Take [id number] and prescription medicines only as told by your health care provider. Contact a health care provider if your abdominal pain changes or gets worse. Get help right away if you have severe pain, cramping, or bloating in your abdomen. This information is not intended to replace advice given to you by your health care provider. Make sure you discuss any questions you have with your health care provider. Document Revised: 03/30/2020 Document Reviewed: 06/20/2019 [employer] Patient Education 2022 [employer]. Follow Up Care 06/20/2022 23:21:21 With:Keith GARCIA Address: [address] [place] [phone] (1) When:06/24/2022 [facility] Hospital course Narrative Note Date & Type Note Facility Hospital course Narrative No data available for this section [facility] Progress note Note Date & Type Note Facility Progress note No data available for this section [facility] Summary Purpose Family History No Family History Records Found No data available for this section No Family History Records FoundNo Family History Records Found Advance Directives No Advanced Directives Records FoundNo Advanced Directives Records FoundNo Advanced Directives Records Found Additional Source Comments INFORMATION SOURCE (unrecogn ized section and content) DATE CREATED AUTHOR 11/24/2021 [facility] DATE CREATED AUTHOR AUTHOR'S ORGANIZ ATION 01/04/2023 [facility] DATE CREATED AUTHOR AUTHOR'S ORGANIZ ATION 01/25/2023 [facility] EPIC Patient Care team informatio n (unrecognized section and content) Personnel Name: Keith GARCIA DO Address: Address: [address] [place] [id number] Personnel Name: NONE, XXXX Address: Address: [facility] FOR RECORDS PERTAINING TO PATIENTS WHO ARE OR HAVE BEEN ENROLLED IN A CHEMICAL DEPENDENCY/SUBSTANCEABUSE PROGRAM, SOME INFORMATION MAY BE OMITTED. This clinical summary was aggregated from multiple sources. Caution should be exercised in using it in the provision of clinical care. This summary normalizes information from multiple sources, and as a consequence, information in this document may materially change the coding, format and clinical context of patient data. In addition, data may be omitted in some cases. CLINICAL DECISIONS SHOULD BE BASED ON THE PRIMARY CLINICAL RECORDS. [facility]. provides no warranty or guarantee of the accuracy or completeness of information in this document.
[2023-02-20 12:49] LABS: Basophils Absolute Auto 0.1 10^3/uL (0.0-0.1); Basophils Percent Auto 0.5 % (0.2-2.0); Eosinophils Absolute Auto 0.1 10^3/uL (0.0-0.7); Eosinophils Percent Auto 1.1 % (0.9-7.0); Hemoglobin 11.7 g/dL (12.0-16.0); Immature Granulocytes Abs Auto 0.04 10^3/uL (0.00-0.03); Immature Granulocytes Pct Auto 0.3 % (0.0-0.5); Lymphocytes Absolute Auto 2.2 10^3/uL (1.2-3.8); Lymphocytes Percent Auto 16.8 % (20.5-60.0); Mean Corpuscular HGB Conc 33.4 g/dL (29.9-35.2); Mean Corpuscular Hemoglobin 30.8 pg (26.7-34.0); Mean Corpuscular Volume 92.1 fL (81.0-99.0); Mean Platelet Volume 9.4 fL (9.5-13.5); Monocytes Absolute Auto 0.6 10^3/uL (0.3-0.8); Monocytes Percent Auto 4.4 % (1.7-12.0); Neutrophils Absolute Auto 10.1 10^3/uL (1.4-6.5); Neutrophils Percent Auto 76.9 % (43.0-75.0); Platelet Count 271 10^3/uL (150-450); Red Cell Distribution Width 12.1 % (11.0-15.0); White Blood Count 13.2 10^3/uL (4.0-11.0)
[2023-02-20 13:48] LABS: Estimated Average Glucose 105 mg/dL; Glycohemoglobin A1C 5.3 % (4.5-6.2)
[2023-02-20 13:55] LABS: Thyroid Stimulating Hormone 1.617 uIU/mL (0.358-3.740)
[2023-02-21 08:13] LABS: HBsAg Screen Negative (Negative)
[2023-02-21 09:12] LABS: Rapid Plasma Reagin, Quant Non Reactive titer (NonRea<1:1)
[2023-02-21 11:08] LABS: HCV Ab Non Reactive (Non Reactive); Rubella Antibodies, IgG 2.13 index (Immune >0.99)
[2023-02-25 07:09] LABS: HIV Ab/p24 Ag Screen Non Reactive (Non Reactive)
== END 2023-02-20 12:22 | disposition home or self-care (01) ==
LOC: LAB 12:23
PROVIDERS: Visit Provider Obstetrics & Gynecology
DX: N92.6 Irregular menstruation, unspecified (principal)
CPT/HCPCS: 36415; 83036; 84443; 85025; 86592; 86762; 86803; 86850; 86900; 86901; 87086; 87340; 87389

== ENCOUNTER 2023-03-05 20:58 | Outpatient (REF) | payer BC, SELFPAY ==
--- OUTSIDE RECORDS SUMMARY | 2023-03-05 21:02 | XMS_ITS | CCD ---
Author Name Unknown Address [address] [place] [address] Organization [facility] Care Team Providers Care Warranty Administrator Name Role Phone ERIKA, DR GROSS Admitting [...] Care Unavailable ERIKA, DR GROSS Admitting Unavailable HERMON, DR WENDY Christiansen Consulting Unavailable ERIKA, DR [...] Physician Unavailab Ritesh David Attending Unavailable Amado Rodriguez Attending Unavailable Medications Current Medications Medication Drug [...] QID, # 20 cap(s), Refills(s) 0, Pharmacy: [facility]/pharmacy #[id number], 160.1, cm, 01/02/23 9:00:00 EST, Height/Length [...] Pain, # 14 tab(s), Refills(s) 0, [id number], 160, cm, 06/20/22 23:30:00 EDT, Height/Length Dosing, 55, kg, 06/20/22 23:30:00 EDT, Weight Dosing Start Date: 06/21/22 Status: Ordered Zofran ODT 4 mg Tab-Dis (2 sources) Start: 01-02-2023 take 1 tablet by mouth every six hours as needed for nausea Zofran ODT 4 mg Tab-Dis 4 mg = 1 tab(s), Oral, q6hr, PRN Nausea/Vomiting, # 12 tab(s), Refills(s) 0, [id number], 160.1, cm, 01/02/23 9:00:00 EST, Height/Length Dosing, 58.8, kg, 01/02/23 9:00:00 EST, Weight Dosing Start Date: 01/02/23 Status: Ordered Start: 06-21-2022 take 1 tablet by mandy th every eight hours as needed for nausea Zofran ODT 4 mg Tab-Dis 4 mg = 1 tab(s), Oral, q8hr, PRN Nausea/Vomiting, # 16 tab(s), Refills(s) 0, [id number], 160, cm, 06/20/22 23:30:00 EDT, Height/Length [...] Basophils/100 WBC (Bld) 0.2 % Normal 0.0-2.0 [facility] Comment on above: Order Comment: Order Added by Discern Expert. Performed By: #### 2 953511, 25887940, 1822883, 6031657, 0544112, 6216493, 12032153 ####[facility] [address] [place] [address] Basophils/Leukocytes Auto (Bld) [Pure # fraction] 0.0 E9/L Normal 0.0-0.2 [facility] Comment on above: Order Comment: Order Added by Discern Expert. Performed By: #### 2 311606, 96837707, 5618761, 1448170, 2105349, 8205014, 96149709 ####[facility] [address] [place] [address] Eosinophils/100 WBC (Bld) 0.1 % Normal 0.0-8.0 [facility] Comment on above: Order Comment: Order Added by Discern Expert. Performed By: #### 2 253443, 66154068, 5086655, 0421601, 8998873, 7195515, 37243055 ####[facility] [address] [place] [address] Eosinophils/Leukocytes Auto (Bld) [Pure # fraction] 0.0 E9/L Normal 0.0-0.5 [facility] Comment on above: Order Comment: Order Added by Discern Expert. Performed By: #### 2 147636, 00318346, 3013955, 5689753, 6463049, 0290782, 03027120 ####[facility] [address] [place] [address] Lymphocytes/100 WBC (Bld) 8.0 % Low 14.0-50.0 [facility] Comment on above: Order Comment: Order Added by Discern Expert. Performed By: #### 2 505174, 43059748, 5242255, 2078517, 9467976, 6204388, 63672391 ####[facility] [address] [place] [address] Lymphocytes/Leukocytes Auto (Bld) [Pure # fraction] 1.1 E9/L Normal 1.0-4.0 [facility] Comment on above: Order Comment: Order Added by Mendy Expert. Performed By: #### 2 901947, 27149612, 1229452, 6790914, 7462917, 8663320, 07125148 ####[facility] [address] [place] [address] Monocytes/100 WBC (Bld) 2.9 % Low 4.0-14.0 [facility] Comment on above: Order Comment: Order Added by Mendy Expert. Performed By: #### 2 548702, 83321491, 8759060, 9192744, 1919139, 9271290, 14179879 ####[facility] [address] [place] [address] Monocytes/Leukocytes Auto (Bld) [Pure # fraction] 0.4 E9/L Normal 0.2-1.0 [facility] Comment on above: Order Comment: Order Added by Mendy Expert. Performed By: #### 2 658972, 47104214, 9624324, 1096583, 3950463, 3628521, 69047369 ####[facility] [address] [place] [address] Neutrophils/100 WBC (Bld) 88.8 % High 36.0-75.0 [facility] Comment on above: Order Comment: Order Added by Discern Expert. Performed By: #### 2 925811, 96858504, 2717138, 3579955, 8032544, 3857697, 02134440 ####[facility] [address] [place] [address] Neutrophils/Leukocytes Auto (Bld) [Pure # fraction] 12.0 E9/L High 2.0-7.5 [facility] Comment on above: Order Comment: Order Added by Discern Expert. Performed By: #### 2 370934, 94884191, 3599835, 8480750, 1360929, 2234421, 43890035 ####[facility] [address] [place] [address] BMPon 01-02-2023 Creatinine [Mass/Vol] 0.5 mg/dL Normal 0.5-1.3 [facility] Comment on above: Performed By: #### 2 407872, 51118998, 4427784, 1760255, 5898206, 8693315, 10107738 ####[facility] [address] [place] [address] Urea nitrogen [Mass/Vol] 10 mg/dL Normal 5-21 [facility] Comment on above: Performed By: #### 2 167373, 61012552, 1303151, 4007964, 1611986, 7827856, 57341770 ####[facility] [address] [place] [address] Urea nitrogen/Creatinine [Mass ratio] 20 No Units Normal 10-20 [facility] Comment on above: Performed By: #### 2 363847, 68347328, 6552580, 3141339, 8907181, 0986730, 14077936 ####[facility] [address] [place] [address] Anion gap [Moles/Vol] 14 mmol/L Normal 6-16 [facility] Comment on above: Performed By: #### 2 934171, 61343020, 3065805, 4481272, 4848025, 1450608, 52165686 ####[facility] [address] [place] [address] Calcium [Mass/Vol] 8.9 mg/dL Normal 8.9-11.1 [facility] Comment on above: Performed By: #### 2 887065, 89309185, 6763799, 5049774, 1818800, 9654049, 70778548 ####[facility] [address] [place] [address] Chloride [Moles/Vol] 103 mmol/L Normal 101-111 [facility] Comment on above: Performed By: #### 2 503280, 61290067, 9314924, 9475645, 2726738, 5983694, 15021512 ####[facility] [address] [place] [address] CO2 [Moles/Vol] 21 mmol/L Normal 21-31 [facility] Comment on above: Performed By: #### 2 988731, 83118294, 5816049, 3448621, 5910081, 8134503, 46158916 ####[facility] [address] [place] [address] Glucose [Mass/Vol] 119 mg/dL Normal 55-199 [facility] Comment on above: Result Comment: If t his glucose result represents a fasting glucose, interpretation should refer to the following reference range: 55-99 mg/dL Performed By: #### 2 592755, 27314608, 4491065, 2444758, 1509368, 0690888, 48187981 ####[facility] [address] [place] [address] Potassium [Moles/Vol] 3.2 mmol/L Low 3.5-5.3 [facility] Comment on above: Performed By: #### 2 175394, 67234325, 0254098, 1044485, 0089742, 6385192, 67863386 ####[facility] [address] [place] [address] Sodium [Moles/Vol] 135 mmol/L Normal 135-145 [facility] Comment on above: Performed By: #### 2 778575, 46755128, 7429121, 3060280, 4311722, 1689768, 74417137 ####[facility] [address] [place] [address] BhCG Quanton 01-02-2023 [place] [address] m[IU]/mL High 1-3 [facility] Comment on above: Result Comment: GEST ATIONAL AGE HCG RANGE (mIU/mL) NON- <1-3 0.2-1 WEEKS 5-50 1-2 WEEKS 50-500 2-3 WEEKS 100-5,000 3-4 WEEKS 500-10,000 4-5 WEEKS 1,000-50,000 5-6 WEEKS 10,000-100,000 6-8 WEEKS 15,000-200,000 8-12 WEEKS 10,000-100,000 Performed By: #### 2 948590 ####[facility] [address] [place] [address] CBC w/ Auto Diffon Erythrocyte distribution width (RBC) [Ratio] 12.3 % Normal 10.9-14.2 [facility] Comment on above: Performed By: #### 2 654093, 76882543, 2653866, 3570630, 5489276, 2083150, 36650219 ####[facility] [address] [place] [address] Hematocrit (Bld) [Volume fraction] 36.5 % Normal 34.0-46.0 [facility] Comment on above: Performed By: #### 2 620182, 91841094, 8413602, 0508119, 3011702, 5022709, 30420090 ####[facility] [address] [place] [address] Hemoglobin (Bld) [Mass/Vol] 12.4 g/dL Normal 12.0-16.0 [facility] Comment on above: Performed By: #### 2 709313, 15354744, 6782741, 5073098, 6081110, 4954495, 78003419 ####[facility] [address] [place] [address] MCH (RBC) [Entitic mass] 30.1 pg Normal 27.0-34.0 [facility] Comment on above: Performed By: #### 2 098877, 80483766, 4721574, 2769101, 0277890, 8741959, 04122828 ####[facility] [address] [place] [address] MCHC (RBC) [Mass/Vol] 33.9 g/dL Normal 31.4-36.0 [facility] Comment on above: Performed By: #### 2 208237, 39428993, 7090480, 7078317, 3377959, 9406520, 00863682 ####[address] [address] MCV (RBC) [Entitic vol] 88.8 fL Normal 80.0-100.0 [facility] Comment on above: Performed By: #### 2 155746, 31879022, 7387313, 3563118, 6396359, 5927780, 55602902 ####[address] [address] Platelet mean volume (Bld) [Entitic vol] 7.4 fL Normal 6.4-10.8 [facility] Comment on above: Performed By: #### 2 261246, 50428417, 5547438, 6968107, 1313561, 9622699, 26117768 ####[facility] [address] [place] [address] Platelets (Bld) [#/Vol] 283.0 E9/L Normal 150.0-500.0 [facility] Comment on above: Performed By: #### 2 709771, 62641940, 3357100, 1801954, 7242445, 6040769, 16816456 ####[address] [address] RBC (Bld) [#/Vol] 4.1 E12/L Low 4.3-5.9 [facility] Comment on above: Performed By: #### 2 286843, 34017810, 0214894, 3516871, 2497617, 0285310, 54469042 ####[facility] [address] [place] [address] WBC corrected for nucl RBC Auto (Bld) [#/Vol] 13.5 E9/L High 4.0-11.0 [facility] Comment on above: Performed By: #### 2 314216, 35707514, 0040110, 7807756, 7904515, 8624545, 71825153 ####[facility] [address] [place] [address] CHEMISTRYOrdered By: SYSTEM SYSTEM on 01-02-2023 Albumin [...] 133 mL/min/1.73 m2 Normal >=59mL/min/1 .73 m2 [facility] [place] Comment on above: Interpretive Data: [...] reference range: 55-99 mg/[place] [address] m[IU]/mL High 1 - 3 mIU/mL [facility] [...] mg/dL Normal 5 - 21 mg/dL [facility] Urea nitrogen/Creatinine [Mass ratio] 20 mg/mg Normal 10 - 20 [facility] COAGULATIONOrdered By: Natalia Wang on 01-02-2023 aPTT Coag (PPP) [Time] 29.4 s Normal 25.1 - 36.5 second(s) [facility] Auto Coag Comment on above: Interpretive Data: [...] the same coagulation reagent and instrumentation as [facility]. Currently there are no coagulation studies available worldwide for children to 14 days, and no normal ranges. Heparin therapeutic range (represented by Anti-Factor Xa activity of 0.2 - 0.4 U/mL) corresponds to PTT of 56.6 - 109.0 sec. INR Coag (PPP) [Relative time] 1.1 {INR} Invalid Interpretation Code [facility] Auto Coag Comment on above: Interpretive Data: I NR results are specifically intended to assess patients stabilized on long-term Anticoagulation therapy suggested INR s Less Intensive Anticoagulation 2.0 3.0 Conventional Range 3.0 4.5 PT Coag (PPP) [Time] 12.1 s Normal 9.4 - 1 2.5 second(s) [facility] Auto Coag Comment on above: Interpretive Data: [...] the same coagulation reagent and instrumentation as [facility]. Currently there are no coagulation studies available worldwide for children to 14 days, and no normal ranges. Consent for Treatmenton 12-24 Consent for Treatment [id number] 31 [id number] #1.00TIFF Normal [facility] Discharge Instructionson Discharge Instructions [id number] 6#1.00TIFF Normal [facility] ED Clinical Summaryon 2022 ED Clinical Summary [place] [id number] ED Clinical Summary Person Information Name: LEENA CORDERO [facility] Age: 27 Years : 1995 Sex: Female Language: Irish PCP: NONE, XXXX Marital Status: Single Visit [...] 01/02/2023 13:45:55 01/02/2023 13:45:55 01/02/2023 13:45:55 ADDRESS: [address] [place] [id number] PHYS DOC NOTES: MEDICAL INFORMATION: Prescriptions Given: New Medications [facility]/pharmacy #[id number], [address] [place] [id number], [phone] dicyclomine (Bentyl 10 mg Cap) 2 Capsules [...] Follow up: With: Address: When: Ginny REBOLLEDO [facility], [address] [place] [address] , [place] [address] Business (1) In 3 days [...] and diarrhea; 3:Intrauterine ; Diarrhea, unspecified Normal [facility] ED Note-Physicianon 01-03-20 ED Note-Physician Basic [...] and Complexity of Problems Differential Diagnosis: [] [facility] Data External documents reviewed: [] [...] QID, # 20 cap(s), Refills(s) 0, [id number], 160.1, cm, 01/02/23 9:00:00 EST, Height/Length [...] Nausea/Vomiting, # 12 tab(s), Refills(s) 0, Pharmacy: [facility]/pharmacy #[id number], 160.1, cm, 01/02/23 9:00:00 EST, Height/Length Dosing, 58.8, kg, 01/02/23 9:00:00 EST, Weight Dosing Sodium Chloride 0.9% intravenous solution, 1,000 mL, Soln-IV, IV, Once, Stop date 01/02/23 9:08:00 EST, STAT, Start date 01/02/23 9:08:00 E (more content not included)... Normal [facility] Comment on above: Result Comment: Elec [...] added (diluted fruit juice). ? Eat bland, fswl-wg-jdpoon foods in small amounts as you are able. These foods include bananas, applesauce, rice, lean meats, toast, and crackers. ? Avoid fluids that contain a lot of sugar or caffeine, such as energy drinks, sports drinks, and soda. ? Avoid alcohol. ? Avoid spicy or fatty foods. General instructions ? Take azly-tch-whtehhr and prescription medicines only as told by your health care provider. ? Drink enough fluid to keep your urine pale yellow. ? Wash your hands often using soap and water for at least 20 seconds. If soap and water are not available, use hand range conservationist. ? Make sure that everyone in your [...] and drinking to prevent dehydration. ? Take qwdg-cst-kmazznh and prescription medicines only as told by [...] provider. Document Revised: 08/16/2021 Document Reviewed: 08/16/2021 [employer] Patient Education ? 2022 [employer] Abdominal Pain, Adult Pain in the [...] these instructions at home: Medicines ? Take xfha-obe-bsrqrhu and prescription medicines only as told by your health care provider. ? Do not take a laxative unless told by your health care provider. General instructions ? Watch your condition for any changes. ? Drink enough fluid to keep your urine pale yellow. ? Keep all follow-up visits as told by your h (more content not included)... Normal [facility] ED Patient Summaryon 023 ED Patient Summary [address] [address] Patient Discharge Instructions Person Information Name: LEENA CORDERO Age: 27 Years Arrival Date: 01/02/2023 08:53:06 Discharge Diagnosis: 1:Abdominal pain; 2:Vomiting and diarrhea; 3:Intrauterine ; Diarrhea, unspecified Primary Care Physician: NONE, XXXX Provider Information Primary Provider: Amado Rodriguez M.D. Advanced Test Case Developer:None The exam and treatment you received in the Emergency Department were for an urgent problem and are not intended as complete care. It is important that you follow up with a doctor, nurse practitioner, or physician?s assistant store manager operations for ongoing care. If your symptoms become worse or you do not improve as expected and you are unable to reach your usual health care provider, you should return to the Emergency Department. We are available 24 hours a day. LEENA CORDERO has been given the following list of patient education materials, prescriptions and follow-up instructions: Follow-up Instructions: With: Address: When: Ginny REBOLLEDO [facility], [address] [place] [address] [place] [address] [facility] () In 3 days 01/05/2023 [...] opioids can be used to help relieve jbusxqoc-nh-vlibik pain and are often prescribed following a [...] your community (more content not included)... Normal [facility] HEMATOLOGYOrdered By: SYSTEM SYSTEM on 01-02-2023 [...] 01-02-2023 Albumin [Mass/Vol] 4.1 g/dL Normal 3.3-5.0 [facility] Comment on above: Performed By: #### 2 846235, 30514773, 8165636, 3470838, 3781168, 8164702, 33946731 ####[facility] [address] [place] [address] Albumin/Globulin (S) [Mass conc ratio] 1.2 Normal 1.1-2.2 [facility] Comment on above: Performed By: #### 2 547535, 42355697, 6853774, 2327528, 3505914, 0880940, 58277665 ####[facility] [address] [place] [address] ALP [Catalytic activity/Vol] 57 Int._Unit/L Normal 21-98 [facility] Comment on above: Performed By: #### 2 271490, 86900882, 5420442, 8189419, 6799894, 1128613, 52940042 ####[facility] [address] [place] [address]6457 ALT No additional P-5'-P [Catalytic activity/Vol] 13 Int._Unit/L Normal 6-46 [facility] Comment on above: Performed By: #### 2 217967, 21995183, 4638432, 8702550, 8542913, 9314118, 23075688 ####[place] [address] [place] [address]6457 AST [Catalytic activity/Vol] 26 Int._Unit/L Normal 5-43 [facility] Comment on above: Performed By: #### 2 935257, 16206095, 3267850, 0976104, 7403637, 6165271, 84352278 ####[place] [address]757 Bilirubin [Mass/Vol] 1.0 mg/dL Normal 0.0-1.1 [facility] Comment on above: Performed By: #### 2 869054, 75531099, 4891615, 4440701, 3374468, 8137367, 74722125 ####[place] 0977757 Bilirubin.direct [Mass/Vol] 0.2 mg/dL Normal 0.1-0.4 [facility] Comment on above: Performed By: #### 2 843209, 17293748, 4341500, 2639598, 8376846, 6943156, 25996449 ####[place] [address] [place] [address] Bilirubin.indirect [Mass or moles/Vol] 0.8 mg/dL Normal 0.1-0.9 [facility] Comment on above: Performed By: #### 2 535115, 32946047, 3684444, 4416728, 6850450, 6519403, 43561285 ####[facility] [address] [place] [address] Globulin (S) [Mass/Vol] 3.5 g/dL Normal 1.4-4.0 [facility] Comment on above: Performed By: #### 2 046098, 44331130, 3057816, 1541448, 9365165, 5032340, 43942302 ####[facility] [address] [place] [address] Protein [Mass/Vol] 7.6 g/dL Normal 6.0-7.8 [facility] Comment on above: Performed By: #### 2 396960, 06021615, 3116520, 3745633, 0685489, 9749946, 88756744 ####[facility] [address] [place] [address] Lipase Levelon 01-02-2023 Lipase [Catalytic activity/Vol] 79 U/L High 13-58 [facility] Comment on above: Performed By: #### 2 532361, 42654485, 5889635, 3375250, 7461929, 5723083, 10680684 ####[facility] [address] [place] [address] PT & PTTon 01-02-2023 aPTT Coag (PPP) [Time] 29.4 second(s) Normal 25.1-36.5 [facility] Comment on above: Result Comment: Para [...] the same coagulation reagent and instrumentation as [facility]. Currently there are no coagulation studies available worldwide for children to 14 days, and no normal ranges. Heparin therapeutic range (represented by Anti-Factor Xa activity of 0.2 - 0.4 U/mL) corresponds to PTT of 56.6 - 109.0 sec. Performed By: #### 2 861868, 29617090, 7656117, 9729698, 4576306, 9620691, 11227037 ####[facility] [address] [place] [address] INR Coag (PPP) [Relative time] 1.1 {INR} Invalid Interpretation Code [facility] Comment on above: Result Comment: INR results are specifically intended to assess patients stabilized on long-term Anticoagulation therapy suggested INR?s ?Less Intensive Anticoagulation? 2.0 ? 3.0 Conventional Range 3.0 ? 4.5 Performed By: #### 2 410785, 66442489, 9043330, 3444489, 8169531, 9056332, 98949969 ####[facility] [address] [place] [address] PT Coag (PPP) [Time] 12.1 second(s) Normal 9.4-12.5 [facility] Comment on above: Result Comment: 15 [...] the same coagulation reagent and instrumentation as [facility]. Currently there are no coagulation studies available worldwide for children to 14 days, and no normal ranges. Performed By: #### 2 556585, 01478613, 2371761, 9657735, 9859511, 5684433, 39321478 ####[facility] [address] [place] [address] With [facility] 2022 Bacteria LM Ql (Urine sed) TRACE Normal Trace [facility] Comment on above: Performed By: #### 1 6853723 ####[facility] [address] [place] [address] Bilirubin Ql (U) Negative Normal Negative [facility] Comment on above: Performed By: #### 1 1103507 ####[facility] [address] [place] [address] Clarity (U) SL CLOUDY Abnormal Clear [facility] Comment on above: Performed By: #### 1 4308664 ####[facility] [address] [place] [address] Color (U) YELLOW Normal Yellow [facility] Comment on above: Performed By: #### 1 6789186 ####[facility] [address] [place] [address] Epithelial cells.squamous LM.HPF (Urine sed) [#/Area] 9-10 Normal 0-2 [facility] Comment on above: Performed By: #### 1 8903280 ####[facility] [address] [place] [address] Glucose Test strip (U) [Mass/Vol] Negative Normal Negative [facility] Comment on above: Performed By: #### 1 0919516 ####[facility] [address] [place] [address] Hemoglobin Ql (U) Negative Normal Negative [facility] Comment on above: Performed By: #### 1 8306870 ####[facility] [address] [place] [address] Ketones (U) [Mass/Vol] 2+ Abnormal Negative Fi [facility] Comment on above: Performed By: #### 1 2358292 ####[facility] [address] [place] [address] Smoot.plasma/Smoot .RBC (Bld) [Mass ratio] 0-3 Normal 0-3 [facility] Comment on above: Performed By: #### 1 5864436 ####[facility] [address] [place] [address] Mucus Ql (Urine sed) 2+ Normal Fish [facility] Comment on above: Performed By: #### 1 3391362 ####[facility] [address] [place] [address] Nitrite Ql (U) Negative Normal Negative [place] Comment on above: Performed By: #### 1 4318455 ####[address] [address] pH (U) 8.5 [pH] Invalid Interpretation Code 5.0-9.0 [facility] Comment on above: Performed By: #### 1 4869226 ####[address] [address] Protein (U) [Mass/Vol] Negative Normal Negative [facility] Comment on above: Performed By: #### 1 7702080 ####[address] [address] Specific gravity (U) [Rel density] 1.015 Invalid Interpretation Code 1.005-1.030 [facility] Comment on above: Performed By: #### 1 0777415 ####[address] [address] [place] LM Ql (Urine sed) Present Normal [facility] Comment on above: Performed By: #### 1 0747691 ####[address] [address] Type of Urine collection method Clean Catch Normal [facility] Comment on above: Performed By: #### 1 6270627 ####[address] [address] Urobilinogen Qn (U) 0.2 {Hima'U}/dL Normal 0.0-1.0 [facility] Comment on above: Performed By: #### 1 3062779 ####[facility] [address] [place] [address] WBC Auto Ql (U) Negative Normal Negative [facility] Comment on above: Performed By: #### 1 4704768 ####Vizcarra [facility] [address] [place] [address] WBC LM.HPF (Urine sed) [#/Area] 0-5 Normal 0-5 [facility] Comment on above: Performed By: #### 1 0719398 ####Zackery [facility] [address] [place] [address] URINALYSISOrdered By: Cata Wang on 01-02-2023 Bacteria [...] Interpretation Code Negative [facility] UA Auto SS Smoot.plasma/Smoot .RBC (Bld) [Mass ratio] 0-3 /HPF Normal [...] (Urine sed) Present (01/02/23 10:40 AM) Normal [facility] UA Auto SS UA Spec Desc Clean Catch (01/02/23 10:40 AM) Normal [facility] UA Auto SS Urobilinogen Qn (U) 0.6356633 {Hima'U}/dL Normal 0.0 - 1.0 EU/dL [facility] UA Auto SS WBC Auto Ql (U) Negative (01/02/23 10:40 AM) Normal Negative [facility] [place] Auto SS WBC LM.HPF (Urine sed) [#/Area] 0-5 /HPF Normal 0-5/HPF [facility] [place] Auto SS US Gallbladderon 01-02-2023 US [...] Transcribed by: JUAN FRANCISCO Technologist: RAMÓN Vizcarra [facility] US 1st Trimesteron 01-02-2023 US [...] corresponding gestational age +/- 1 week are: Towanda Rump Length: 0.5 cm Composite Ultrasound Age: [...] Regular History 3 Para 2 SAB 1 [facility] US Transvaginalon 01-02-2023 US Transvaginal Exam Date/Time: 01/02/2023 11:37 EST Reason for Exam: pain Report Refer to concurrent ultrasound first trimester dictation. Ordering Provider: Amado Rodriguez FINAL REPORT Dictated: 01/02/2023 11:48 am Jos Lozano MD Signed (Electronic Signature): 01/02/2023 11:48 am Signed by: Jos Lozano MD Transcribed by: JUAN FRANCISCO Technologist: RAMÓN [facility] eGFRon 01-02-2023 GFR/1.73 sq M.predicted among non-blacks MDRD (S/P/Bld) [Vol rate/Area] 133 mL/min/1.73 m2 Normal >=59 [facility] Comment on above: Order Comment: Order added by Discern Expert. Result Comment: Efficiency Expert saranya kidney disease could be indicated at eGFR's of less than 60 mL/min/1.73m2. Kidney failure is indicated at less than 15 mL/min/1.73m2. Performed By: #### 2 527684, [id number], 4891084, 0096522, 2489481, 4845177, 12293486 ####[facility] [address] [place] [address] Coding Summary.on 06-23-2022 Coding Summary. CD:[id number] Ww+PGhlYWQ+FQ9EZCNzA 36zuMNlbW6bB5THTFoYX ywgQVBQTElOSyIgbmFtZ E5mrQTbGOEn IC8+HB5oDAEoMnzheQPi f8C0lXI4A16tew0jHPpi hFU0YMOqPgXwghzho9ya aRs7UDniNpgePkOd KFEbgP52XCZ5qU69Js77 mAXrlZCfh3wpjOc6OpVv PTYbWVJ9jOfpWFsng8Ob MLDvQ06udAVfe0X3 IGNvbGxhcHNlOyBlbXB0 cC5rLBlkhmrlw0khbsin Rtc9ad98vUDje1J1wGH7 U2UocfI4HSSlxFHx JsacrVTTvV6hczbyd1ho xjunBoKlQHRcLPo0CBh5 EIZbwCggXaQxBO90SXC8 FQLhejTfM7WqYHEl oOmvGoE0a3P4Bq0IP2BK QeyfT5EPNGGIAMtugTE+ UY97ix79P4EcAzhdVgr3 GHSfANY4dXT7zP2u VKMlDEtuc8R9gXW3V9Vc crVvrm9hg6vlNZGsODhg O40ogAMow5J7ULJenSF5 QFIkfUuuLgBnjC60 Oyc+CDZwnItqd1HxPkwt l8gay2rbmEp4DtgcQSGr ymMzsEybTWO3t6CuVv9t SQWpeGI9iNX8pV0t TaNuGpN8UJlgN042IaCd dRKpRdchW81dR1HrcYI+ HPFyXzn8LCXwlKucAT4l W0GvIKUtcsiqzUMg kOieJG7hFKTxgevxNETo bJ6yYQPjL2j2AzCoUnF2 RSjjX2RjNJSroxovJq59 cY5pZfJjFcM3ANak F8QeecF7UHIliIViQEsl EVY8K05gd8M3KIMrAWAv SGD8pFE7tB3cjVzsuuas bGVmdDsgdmVydGlj IIbtUPxpE606YZVysTtf PkNvZGluZyBEYXRlOiAg MDUvMDEvMjAyMzwvdGQ+ UTDpPOZ0yZpfHGRe dJLaTKkkEh2zeRqngYvt IR8nWAObfcqgFXQjnD8l JSLrsDNmkCovGU6lKHVy xkdtl257FkOhUVR1 OBZzgPQwS9DamE1rZaTp ESKcJJBmZ2MgpUUhBPar U628LIbdUmI7JPFksiMq P8SrXWOmoRkwPdF9 b1D8Pr9Hp2MgxrvpX7Fk kQHqXuJxMyhiZJz1Q6Dc PjwvdHI+HQ75VFHsVT94 FVj6LJK8gVzeAQsr LCSpW1AurV1qQwCvMPTx ZGRkOyc+PHRhYmxlIHdp ZHRoPScxMDAlJyBzdHls UA8uRy7nAWFxAXBv rLvqxOGbMdWme1oqTWSp EJugQB2dkFmdU6IecLI0 RTAyw3e4Fu01J03mJ3As dXA+UFWotVE0vOZ1 jX2cVaMeGvN5KKenZ413 CnIydJBcUosue7lwf2do rUh0JcY2JYErhaLjeJja CHV0r4YnZo40M41s IHdpZHRoPSIxNSUiIHZh uGmmop9zwR1xUv9+PGNv fVF7wVA6nU4kIzRbYkN2 LFvwI788LcJaxFZa Cfuqq4xza6aquWi3UtSf TZFhexLxmYakBSQ0i2Me Ph70W9OqvAjdj6RdGaz2 km07zPHnv0V3sRB9 T8RpXIZrgxrehQUnsAwl VN8iWAOmheliCVXmkU1a FIRpE7t1FvGxVfX9OKms L0SoosS5FCUtqIIc NUDhjHGVrR6cyqrqz7om hvziZnGeCJOhURc0XQp6 NKLxmQhuJsKpXAM4AvO2 BFQ3tOAxrP2hqNub cfuagX6xAky+BBW7xFBl eAUPSR7uEyegyRW+PHRk OTE0xFilNVooMKIrxN0c VCKbW5p4CtZqBrO9 WMdiS0ZexnJ3OEDwxBBj PHHxhQFBjP3qifiol1bt wuqyCaGxWITwXUs6TBt7 LWFsaWduOiBsZWZ0 KyR4SCT5hSRslF9qdTww hyfqgL6pIgr+QmlydGgg VSA9OWn6J6DmMty6LHOk uQkdBE0lcOSjENiv Us8xzBztuPsjXV7pIUCs imjtj385WqHlt9mjPTQi dYGcCUiwFMC0F84cd8P1 QNPoPIKqQOX5hEK8 wW7kgSyurtjwuIAptYde elWpbWjuERzkFDbuB228 KPXljYevUcAdUJb6D0Tm Ikz9MQIcfQizYB8i uDHiSDhgHs4lfCpzxFuw BL2pFWGouypeu393HdVw x0lrPTUdtRRcIMclENG7 H33wu3S2IYQmMMVg HRC2xDQ0rS1ozAznmnnz bGVmdDsgdmVydGljYWwt BEatZ375AVGvzWfwZhMq bUb6J8PaIvt7XIUm gVdsPM9zcFHtKNljLd2o zJokeLefGO0nXZUwzmlh q837HsHtv9bkLTUnqJGr DJdzPCV0W08ed5R8 LMNfRMJiYUG2mDU7lZ7x bGlnbjogbGVmdDsgdmVy sWfeVYhtAZkfD271GDQk cDsnPlBhdGllbnQg LTihHOd2Y1KwNxhxdDV+ BM75CAKrUB89qMRepPGe p4pbhHn5RnUoZUPpHBI8 wVqyRSuhq1CyLRDn L69njTUiy2Y7NPNueFev zPQnTiUreWQ4kH2oTFck qrayj5laludlSmshs1gc lr02dV03H03cLBnx ZHRoPSIzMCUiIHZhbGln wz5ktE2vFf0+PGNvbCB3 yJQ4dL4kZYMbAqE3CBxg K231EuXcvIHbKmuq c1oco2jvaDf6FaW0XOYz xbDxfAigVEF4d1NzWh65 F55yBTqpNVIgGIRiMOMc NIUjpBezvt0vtV6q Ii8+PRWstLO2gTI3wQ5x YjEyBvH8ETqfR946OpMj xTYqTqolF87eA7VkaFF+ QLRfTya4MNGvzRdj TM4anWDbCZdrOb0zJEH0 WnDfAxPdRHwjO1ZeRNBp zvehwmkieFT9IXMzPCEj uU39Pu2sxHgyNPIy jDJThO9bjkblr6whywga KvZwUOJkJEp1RCj8WTQe zLbzOiPnWXD3AjO9UJD7 hSDdbT0seXbvgmwv pP3iA3GdKELrhtimEd37 uI9tNxSsJpS6BKekEbq+ S4SEXAWUVVRNDGQAQFHQ IH8IHaB0Y1FvPzp6 NITbrGywPN4tmORlNZnj Lu3coTryaTyiTF1pSYJx llmeHCOfbF2yVLUdhBLk vVzdBN6jWPYyabik s715KaFrEPQ1IZQwuIWc A0SdtG4hIsJpDAAiUNWt M5GdbDNjUMaxG261HNqp AfL5SWFhjaFsM1Ax KPTdbKxhSwA7d3M4Ui6q Lk5pNH8hPFz3XZ77HY24 nQBcu2N0xQI4U0BmCLKi jvkodvxviPJ7OIHr IEQjwG44tEMmKTwvGx3f v3X3y800CJTgKPExtY93 Cg3zeOinRQVdbKIBvJ0e helww1vbnkiaDeHh PQTyQNp5YKs3EAMzsKjn QtVoZBH8KkK5ESE9rDOy aI0knQyqwfwfhQ5xYgx+ PrFvWFMflrK1T9Gh Yab6DEVwxOqmSB1ljLTr KMefPv2jaUrqkKuiTD8z SUVkjdniYOOgeP6bTDPm uTKjxTjaDT4bWYJg djahn962BwRrZSH7WTVa gGHgR4VqyA4aKkSjJHOg EWDfT1MdfYKcWAgjD974 HRxgTiG3WDVnwgFa W9KwDJSntPseAgX2a3W7 Rz1CHX7szHZ4U9LlNcp6 FAHbqVekDQ7uvRYaNGyg Ho3yjPlylQycEK2l BMGgidihRSQxdG0tTPVb rZQjqGzxWM0wCUBfwaic b207VbFxIVU5XIKljFYq O5YrtZ6zNqRiUKUe RKRvB8TilYIiBEwqE933 GMgoCpV7ZRLyctOxG4Ac GXOkzLxwLkT0r5B5Qx1V qPPhB6OyA7n7V1Ek PjwvdHI+ZP86ZCMbUL17 hNGodXOam4zbwQg9NxRt AZTdACM7aFarIJumd8Cy HVZvG08gjUMsy4E2 IGNvbGxhcHNlOyBlbXB0 eD5yQIzytxemo0asvvjx Meeyh9iwrf98mJ47U31k IHdpZHRoPSIzMCUi NFLsqHjihs1jcL7wMf9+ IBCtyDH6yRG2hU5nDsLz DkY0VGfdY523GmHttRLf Rjopp9men3lizYc2 IjIwJSIgdmFsaWduPSJ0 d9LyGj71K31dJDzqWQUu TSQxLZRhFVEirMckyz6k kJ5zUa9+LG2ke3zq ww03vI57eHW+PHRkIHN0 cDoqDPyaDWEghV1zTFdd HhA2WDSaOwYgrA84iJMq GSswJj8puIzpuVfa MT5cLWOddykww397FbBc q3bpRWBayWXeIBqmSWX8 Q24cx6L3IGPpXAKxGQS0 lAB3gU9mlYqufmdw bGVmdDsgdmVydGljYWwt AIebU982OLMtmArpRvBz kKJlX2zwciDJPC2tNoln dGQ+VRUfJYV6cImb YAtmQQTocW1lEAZuB5a4 WaNsZaE1VAbcR3YfggI5 HRNhcZEhPHAogPGAtA5c mthyy5gyybibZuJl FOVlFZm1GJj2NIXdqRzo ArZeQWL4MrC2LTD3bLWg fW5siXuyojzdwN9cRrc+ RklOOjwvdGQ+PHRk VGS8dYpfPTtpPLLdyE0k PJNlX5k0GkAsQqO5TLxe B9XxkyQ4DFQdgNOaBGUh pKDMbE9rcfzlp6yd brayWgJsRRBuBCo7LQf6 DVTapYqfJmTgAXU1UiO4 AGF1nCJprA6jkRdzzqkr jY2uPwc+TVJOOjwv dGQ+JOUzAKI2wFjiUOog YYIbsU0aUBOgN6h1TeKf BmW2OSvhP5NeuvQ3JVUv pDKdNCCrtXGLaN9o gmono5sjltiyNfUgQBPn UJu0GGx1NHLudSfsJyPm ECI3KoJ4HVJ9wTGhgM3w qYyxkqcfzV5nQum+ DEG1ZEB8CS60SZ78E9Cx PjwvdGFibGU+PHRhYmxl IHdpZHRoPScxMDAlJyBz lWwnMB2uDq4fIDQl LWNvbGxh (more content not included)... Normal [facility] Auto Diffon 06-21-2022 Basophils/100 WBC (Bld) 0.7 % Normal 0.0-2.0 [facility] Comment on above: Order Comment: Order Added by Discern Expert. Performed By: #### 2 063227, 1490995, 5568907, 3291575, 73846890, 29949855, 7698691 ####[facility] [address] [place] [address] Basophils/Leukocytes Auto (Bld) [Pure # fraction] 0.2 E9/L Normal 0.0-0.2 [facility] Comment on above: Order Comment: Order Added by Discern Expert. Performed By: #### 2 064726, 0650052, 5993137, 8874581, 60177114, 48639691, 5654953 ####[facility] [address] [place] [address] Eosinophils/100 WBC (Bld) 0.9 % Normal 0.0-8.0 [facility] Comment on above: Order Comment: Order Added by Discern Expert. Performed By: #### 2 576394, 3236456, 4866364, 7852327, 33499109, 18365242, 4024786 ####[address] [address] Eosinophils/Leukocytes Auto (Bld) [Pure # fraction] 0.2 E9/L Normal 0.0-0.5 [facility] Comment on above: Order Comment: Order Added by Discern Expert. Performed By: #### 2 252404, 8116780, 7185484, 4447754, 33036624, 71047626, 5472197 ####[address] [address] Lymphocytes/100 WBC (Bld) 19.5 % Normal 14.0-50.0 [facility] Comment on above: Order Comment: Order Added by Mendy Expert. Performed By: #### 2 101280, 9421754, 4590448, 1525813, 90155675, 52229095, 8147026 ####[address] [address] Lymphocytes/Leukocytes Auto (Bld) [Pure # fraction] 4.2 E9/L High 1.0-4.0 [facility] Comment on above: Order Comment: Order Added by Mendy Expert. Performed By: #### 2 778756, 8873216, 5726483, 3655281, 81085311, 70799318, 4577209 ####[address] [place] [address] Monocytes/100 WBC (Bld) 4.9 % Normal 4.0-14.0 [facility] Comment on above: Order Comment: Order Added by Mendy Expert. Performed By: #### 2 668648, 3731928, 4151410, 0221015, 92319559, 72339107, 2120050 ####[address] [address] Monocytes/Leukocytes Auto (Bld) [Pure # fraction] 1.1 E9/L High 0.2-1.0 [facility] Comment on above: Order Comment: Order Added by Discern Expert. Performed By: #### 2 728679, 7952409, 6261423, 4185549, 46872046, 10113077, 4770449 ####[facility] [address] [place] [address] Neutrophils/100 WBC (Bld) 74.0 % Normal 36.0-75.0 [facility] Comment on above: Order Comment: Order Added by Discern Expert. Performed By: #### 2 037901, 0526569, 1563328, 0958781, 53801489, 08137510, 3158439 ####[address] [place] [address] Neutrophils/Leukocytes Auto (Bld) [Pure # fraction] 15.9 E9/L High 2.0-7.5 [facility] Comment on above: Order Comment: Order Added by Discern Expert. Performed By: #### 2 415794, 5136888, 6139497, 8187304, 84215386, 79411234, 8166682 ####[facility] [address] [place] [address] B hCG Qualon 06-21-2022 Beta hCG Ql Negative Normal [facility] Comment on above: Performed By: #### 2 219239, 7978652, 6397328, 8256130, 97911954, 48316346, 2324888 ####[facility] [address] [place] [address] BMPon 06-21-2022 Creatinine [Mass/Vol] 0.7 mg/dL Normal 0.5-1.3 [facility] Comment on above: Performed By: #### 2 937850, 4730360, 9571279, 5192583, 16844789, 07536021, 7304182 ####[facility] [address] [place] [address] Urea nitrogen [Mass/Vol] 12 mg/dL Normal 5-21 [facility] Comment on above: Performed By: #### 2 942868, 1963013, 7358235, 4734532, 55429729, 00088499, 1698794 ####[facility] [address] [place] [address] Urea nitrogen/Creatinine [Mass ratio] 17 No Units Normal 10-20 [facility] Comment on above: Performed By: #### 2 334962, 9652025, 5257686, 7550229, 53561044, 61438713, 3777980 ####[facility] [address] [place] [address] Anion gap [Moles/Vol] 12 mmol/L Normal 6-16 [facility] Comment on above: Performed By: #### 2 010290, 0965411, 6872555, 5923683, 64665852, 85203854, 5330412 ####[facility] [address] [place] [address] Calcium [Mass/Vol] 8.8 mg/dL Low 8.9-11.1 [facility] Comment on above: Performed By: #### 2 069012, 5831698, 9959815, 5267270, 21178618, 41323627, 5910894 ####[facility] [address] [place] [address] Chloride [Moles/Vol] 105 mmol/L Normal 101-111 [facility] Comment on above: Performed By: #### 2 410666, 6482678, 9485912, 6941151, 59003683, 50281820, 9433462 ####[facility] [address] [place] [address] CO2 [Moles/Vol] 23 mmol/L Normal 21-31 [facility] Comment on above: Performed By: #### 2 035383, 8299205, 6985582, 3818287, 06005732, 85028593, 5545391 ####[facility] [address] [place] [address] Glucose [Mass/Vol] 104 mg/dL Normal 55-199 [facility] Comment on above: Result Comment: If t his glucose result represents a fasting glucose, interpretation should refer to the following reference range: 55-99 mg/dL Performed By: #### 2 751283, 9048763, 2917887, 2519717, 94450023, 08825291, 3141189 ####[facility] [address] [place] [address] Potassium [Moles/Vol] 3.4 mmol/L Low 3.5-5.3 [facility] Comment on above: Performed By: #### 2 416149, 4937722, 5673957, 2765297, 39754170, 95117613, 7224269 ####[facility] [address] [place] [address] Sodium [Moles/Vol] 137 mmol/L Normal 135-145 [facility] Comment on above: Performed By: #### 2 797606, 9922511, 1797031, 7599666, 25031203, 24729148, 8125629 ####[facility] [address] [place] [address] CBC w/ Auto Diffon 3 Erythrocyte distribution width (RBC) [Ratio] 12.3 % Normal 10.9-14.2 [facility] Comment on above: Performed By: #### 2 887540, 1819413, 8527122, 5069790, 89695293, 14650977, 7944397 ####[facility] [address] [place] [address] Hematocrit (Bld) [Volume fraction] 41.0 % Normal 34.0-46.0 [facility] Comment on above: Performed By: #### 2 917727, 0236962, 8978812, 5092439, 26986856, 91432432, 3976857 ####[facility] [address] [place] [address] Hemoglobin (Bld) [Mass/Vol] 13.4 g/dL Normal 12.0-16.0 [facility] Comment on above: Performed By: #### 2 206243, 8663647, 9171430, 3383575, 44174660, 95829882, 1430903 ####[facility] [address] [place] [address] MCH (RBC) [Entitic mass] 28.2 pg Normal 27.0-34.0 [facility] Comment on above: Performed By: #### 2 763842, 3082839, 1969680, 5256657, 89978383, 76128804, 6246406 ####[address] [address] MCHC (RBC) [Mass/Vol] 32.7 g/dL Normal 31.4-36.0 [facility] Comment on above: Performed By: #### 2 161144, 3220352, 9824160, 5467955, 79296423, 34501594, 5598041 ####[address] [address] MCV (RBC) [Entitic vol] 86.3 fL Normal 80.0-100.0 [facility] Comment on above: Performed By: #### 2 049711, 7206377, 8470899, 1748005, 55365155, 44377630, 4968128 ####[address] [address] Platelet mean volume (Bld) [Entitic vol] 7.2 fL Normal 6.4-10.8 [facility] Comment on above: Performed By: #### 2 841181, 8513010, 6545411, 7010007, 77508227, 49780779, 8636127 ####[address] [address] Platelets (Bld) [#/Vol] 414.0 E9/L Normal 150.0-500.0 [facility] Comment on above: Performed By: #### 2 283857, 0928036, 3343527, 3318755, 30189231, 72763128, 5623226 ####[address] [address] RBC (Bld) [#/Vol] 4.8 E12/L Normal 4.3-5.9 [facility] Comment on above: Performed By: #### 2 007093, 1893791, 0990823, 9057562, 86728494, 69160035, 2268769 ####[facility] [address] [place] [address] WBC corrected for nucl RBC Auto (Bld) [#/Vol] 21.6 E9/L High 4.0-11.0 [facility] Comment on above: Result Comment: Slid e reviewed by AD. Performed By: #### 2 970138, 6048767, 3630499, 1086123, 40981945, 64511306, 6192734 ####[facility] [address] [place] [address] CT Abdomen/Pelvis w/ Contras ton 06-21-2022 CT [...] 300 Contrast amount in ml's: 100 Normal [facility] Consent for Treatmenton 05-25 Consent for Treatment [id number] 30 [id number] #1.00CD:127 Normal [facility] Discharge Instructionson Discharge Instructions [id number] 304 [id number] 0#1.00CD:127 Normal [facility] ED Clinical Summaryon 2022 ED Clinical Summary [place] [id number] ED Clinical Summary [facility]: [facility] Age[facility] 27 Years : 1995 Sex: Female Language: Irish PCP: Keith GARCIA DO Marital Status: Single [...] 06/21/2022 05:06:52 06/21/2022 05:06:52 06/21/2022 05:06:52 ADDRESS: [facility] [address] [id number] PHYS DOC NOTES: MEDICAL INFORMATION: Prescriptions Given: New Medications [id number], [address], [place] [id number], [phone] naproxen (naproxen 500 mg oral enteric coated tablet) 1 Tablets By Mouth 2 times a day as needed Pain. Refills: 0. ondansetron (Zofran ODT 4 mg Tab-Dis) 1 Tablets By Mouth every 8 hours as needed Nausea/Vomiting. Refills: 0. PATIENT EDUCATION INFORMATION: Instructions: Abdominal Pain, Adult Follow up: With: Address: When: Keith GARCIA [address] [place] [address] Business (1) In 3 days 06/24/2022 DIAGNOSIS: Abdominal pain, acute Normal [facility] ED Note-Physicianon 06-22-19 ED Note-Physician Basic [...] and Complexity of Problems Differential Diagnosis: [] [facility] Data External documents reviewed: N/A [...] Pain, # 14 tab(s), Refills(s) 0, [id number] 160, cm, 06/20/22 23:30:00 EDT, Height/Length [...] Nausea/Vomiting, # 16 tab(s), Refills(s) 0, Pharmacy: [id number], 160, cm, 06/20/22 23:30:00 EDT, Height/Length [...] Medications Administered (more content not included)... Normal [facility] Comment on above: Result Comment: Elec [...] these instructions at home: Medicines ? Take usqp-crx-cqivkal and prescription medicines only as told by [...] your condition for any changes. ? Take unvt-ege-nvhgstu and prescription medicines only as told by [...] provider. Document Revised: 03/30/2020 Document Reviewed: 06/20/2019 [employer] Patient Education ? 2022 [employer] Normal [facility] ED Patient Summaryon 023 ED Patient Summary [address] [address] Patient Discharge Instructions Person Information Name: LEENA CORDERO Age: 27 Years Arrival Date: 06/20/2022 23:19:15 Discharge Diagnosis: Abdominal pain, acute Primary Care Physician: Keith GARCIA DO Provider Information Primary Provider: Ritesh Pascal DO Advanced Test Case Developer:None The exam and treatment you received in the Emergency Department were for an urgent problem and are not intended as complete care. It is important that you follow up with a doctor, nurse practitioner, or physician?s assistant store manager operations for ongoing care. If your symptoms become [...] When: Keith GARCIA [address] [place] [id number] Business (1) In 3 days 06/24/2022 In the event that this physician does not participate in your insurance network, please consult with your insurance company to find a nearby participating provider. Patient Education Materials: Abdominal Pain, Adult A MESSAGE TO ALL PATIENTS REGARDING OPIOIDS PRESCRIPTION OPIOIDS: WHAT YOU NEED TO KNOW Prescription opioids can be used to help relieve kdnkobpn-go-oncihj pain and are often prescribed following a [...] be struggling with addiction, tell your health daycare teacher and ask for guidance or call SAM[employer]?S National Helpline at 7-448-739-HELP. v Source: [place] [facility] (more content not included)... Normal [facility] Hep Func Panelon 06-21-2022 Bilirubin.indirect [Mass or moles/Vol] UTC Abnormal 0.1-0.9 [facility] Comment on above: Result Comment: Resu lt verified by Discern Rule. Performed result UTC (Unable to Calculate) was sent as an Alpha code due the inability to calculate a valid numeric value. Performed By: #### 2 130747, 0963321, 5055418, 6794378, 85807920, 03080065, 0733151 ####[facility] [address] [place] [address] Albumin [Mass/Vol] 4.1 g/dL Normal 3.3-5.0 [facility] Comment on above: Performed By: #### 2 969382, 1683493, 7509975, 0464642, 27251220, 91251243, 4365529 ####[address] [place] [address] Albumin/Globulin (S) [Mass conc ratio] 1.1 Normal 1.1-2.2 [facility] Comment on above: Performed By: #### 2 742210, 6123453, 4796500, 7868109, 68660678, 17464919, 5285013 ####[address] [address] ALP [Catalytic activity/Vol] 86 Int._Unit/L Normal 21-98 [facility] Comment on above: Performed By: #### 2 309047, 7559436, 6913847, 1657645, 34968429, 60406475, 1655042 ####[address] [address] ALT No additional P-5'-P [Catalytic activity/Vol] 16 Int._Unit/L Normal 6-46 [facility] Comment on above: Performed By: #### 2 379392, 7775511, 5608742, 5035106, 79728859, 19651060, 8258876 ####[facility] [address] [place] [address] AST [Catalytic activity/Vol] 22 Int._Unit/L Normal 5-43 [facility] Comment on above: Performed By: #### 2 157778, 0481345, 9036079, 3219596, 76096235, 43814840, 9853129 ####[address] [place] [address] Bilirubin [Mass/Vol] 0.5 mg/dL Normal 0.0-1.1 [facility] Comment on above: Performed By: #### 2 027953, 2527061, 6216677, 2482336, 00403198, 38343554, 3698989 ####[address] [address] Globulin (S) [Mass/Vol] 3.6 g/dL Normal 1.4-4.0 [facility] Comment on above: Performed By: #### 2 605995, 2505876, 7984501, 6017481, 86713235, 93885768, 8362962 ####[address] [address] Protein [Mass/Vol] 7.7 g/dL Normal 6.0-7.8 [facility] Comment on above: Performed By: #### 2 159067, 5222730, 1433676, 7413452, 81857594, 39565962, 1567152 ####[address] [address] Bilirubin.direct [Mass/Vol] mg/dL Normal 0.1-0.4 [facility] Comment on above: Performed By: #### 2 883203, 5947784, 7726021, 7862223, 61237486, 52537850, 4133590 ####[address] [address] Lipase Levelon 06-21-2022 Lipase [Catalytic activity/Vol] 32 U/L Normal 13-58 [facility] Comment on above: Performed By: #### 2 271571, 8332704, 7773896, 3816213, 09492626, 78595917, 7437694 ####[address] [address] RAD - Preliminary Cat Scan R eporton 06-21-2022 RAD - Preliminary Cat Scan Report [id number] 9#1.00CD:127 Normal [facility] RAD - Preliminary Cat Scan Report [id number] 5#1.00CD:127 Normal [facility] UA With Cult Reflexon 2022 Bilirubin Ql (U) Negative Normal Negative [facility] Comment on above: Performed By: #### 1 [id number] ####[facility] [address] [place] [address] Clarity (U) CLEAR Normal Clear [facility] Comment on above: Performed By: #### 1 [id number] ####[facility] [address] [place] [address] Color (U) STRAW Invalid Interpretation Code [facility] Comment on above: Performed By: #### 1 [id number] ####[address] [address] Epithelial cells.squamous LM.HPF (Urine sed) [#/Area] 0-2 Normal 0-2 [facility] Comment on above: Performed By: #### 1 7866216 ####[facility] [address] [place] [address] Glucose Test strip (U) [Mass/Vol] Negative Normal Negative [facility] Comment on above: Performed By: #### 1 4829325 ####[facility] [address] [place] [address] Hemoglobin Ql (U) TRACE Abnormal Negative [facility] Comment on above: Performed By: #### 1 0464192 ####[facility] [address] [place] [address] Ketones (U) [Mass/Vol] TRACE Invalid Interpretation Code Negative [facility] Comment on above: Performed By: #### 1 [id number] ####[address] [address] Smoot.plasma/Smoot .RBC (Bld) [Mass ratio] 0-3 Normal 0-3 [facility] Comment on above: Performed By: #### 1 1764565 ####[facility] [address] [place] [address] Nitrite Ql (U) Negative Normal Negative [place] Comment on above: Performed By: #### 1 8459569 ####[address] [address] pH (U) 8.0 [pH] Invalid Interpretation Code 5.0-9.0 [facility] Comment on above: Performed By: #### 1 7439040 ####[address] [address] Protein (U) [Mass/Vol] Negative Normal Negative [facility] Comment on above: Performed By: #### 1 1589389 ####[address] [address] Specific gravity (U) [Rel density] 1.010 Invalid Interpretation Code 1.005-1.030 [facility] Comment on above: Performed By: #### 1 8027373 ####[address] [address] Type of Urine collection method Clean Catch Normal [facility] Comment on above: Performed By: #### 1 [id number] ####[address] [address] Urobilinogen Qn (U) 0.2 {Hima'U}/dL Normal 0.0-1.0 [facility] Comment on above: Performed By: #### 1 0149869 ####[address] [address] WBC Auto Ql (U) Negative Normal Negative [facility] Comment on above: Performed By: #### 1 3260009 ####[address] [address] WBC LM.HPF (Urine sed) [#/Area] 0-5 Normal 0-5 [facility] Comment on above: Performed By: #### 1 7029142 ####[address] [address] URINALYSISOrdered By: Tom Jon on 06-21-2022 Bilirubin [...] Interpretation Code Negative [facility] UA Auto SS Smoot.plasma/Smoot .RBC (Bld) [Mass ratio] 0-3 /HPF Normal [...] [facility] UA Auto SS Urobilinogen Qn (U) 0.5215043 {Hima'U}/dL Normal 0.0 - 1.0 EU/dL [facility] [...] Transabdominal Ultrasound Performed Uterus Position Anteverted Normal [facility] eGFRon 06-21-2022 GFR/1.73 sq M.predicted among non-blacks MDRD (S/P/Bld) [Vol rate/Area] 123 mL/min/1.73 m2 Normal >=[facility] Comment on above: Order Comment: Order added by Discern Expert. Result Comment: Efficiency Expert saranya kidney disease could be indicated at eGFR's of less than 60 mL/min/1.73m2. Kidney failure is indicated at less than 15 mL/min/1.73m2. Performed By: #### 2 [id number], [id number], [id number], [id number] ####[facility] [id number] [place] [address] CHEMISTRYOrdered By: SYSTEM SYSTEM on 06-20-2022 Albumin [...] hCG Ql Negative (06/20/22 11:40 PM) Normal [facility] [place] [place] CANNABINOID (THC) CONFIRMATI ON, URINEon 11-19-2021 Cannabinoid Positive Abnormal [facility] Comment on above: Performed By: #### T HCCONF #### [facility] [address] [address] [address] Nannette Shafer THC GC/MS Conf 629 ng/mL Normal Cutoff=10 Th [facility] Comment on above: Performed By: #### T HCCONF #### [facility] [address] [place], [place] [address] Dr. Nannette Baker CBC AUTO DIFFon 11-13-2021 BASO # 0.1 103/ul Normal 0.0-0.1 [facility] Comment on above: Performed By: #### C BC #### [facility] [address] [place] [address] Dr. Nannette Baker Basophils/100 WBC (Bld) 0.5 % Normal 0.2-2.0 [facility] Comment on above: Performed By: #### C BC #### [facility] [address] [place] [address] Dr. Nannette Baker EO # 0.2 103/ul Normal 0.0-0.7 [facility] Comment on above: Performed By: #### C BC #### [facility] [address] [place] [address] Dr. Nannette Baker Eosinophils/100 WBC (Bld) 1.2 % Normal 0.9-7.0 [facility] Comment on above: Performed By: #### C BC #### [facility] [address] [place] [address] Dr. Nannette Baker Erythrocyte distribution width (RBC) [Ratio] 12.2 % Normal 11.0-15.0 [facility] Comment on above: Performed By: #### C BC #### [facility] [address] [place] [address] Dr. Nannette Baker Hematocrit (Bld) [Volume fraction] 33.4 % Critically low 36.0-48.0 [facility] Comment on above: Performed By: #### C BC #### [facility] [address] [place] [address] Dr. Nannette Baker Hemoglobin (Bld) [Mass/Vol] 11.5 g/dL Critically low 12.0-16.0 [facility] Comment on above: Performed By: #### C BC #### [facility] [address] [place] [address] Dr. Nannette Baker IG # 0.06 10e3/ul Critically high 0.00-0.03 [facility] Comment on above: Performed By: #### C BC #### [facility] [address] [place] [address] Dr. Nannette Baker IG % 0.5 % Normal 0.0-0.5 [facility] Comment on above: Performed By: #### C BC #### [facility] [address] [place] [address] Dr. Nannette Baker LYMPH # 2.3 103/ul Normal 1.2-3.8 [facility] Comment on above: Performed By: #### C BC #### [facility] [address] [place] [address] Dr. Nannette Baker Lymphocytes/100 WBC (Bld) 17.5 % Critically low 20.5-60.0 [facility] Comment on above: Performed By: #### C BC #### [facility] [address] [place] [address] Dr. Nannette Baker MANUAL DIFF REQ NO Normal [facility] Comment on above: Performed By: #### C BC #### [facility] [address] [place] [address] Dr. Nannette Baker MCH (RBC) [Entitic mass] 31.2 pg Normal 26.7-34.0 [facility] Comment on above: Performed By: #### C BC #### [facility] [address] [place] [address] Dr. Nannette Baker MCHC (RBC) [Mass/Vol] 34.4 g/dL Normal 29.9-35.2 [facility] Comment on above: Performed By: #### C BC #### [facility] [address] [place] [address] Dr. Nannette Baker MCV (RBC) [Entitic vol] 90.5 fL Normal 81.0-99.0 [facility] Comment on above: Performed By: #### C BC #### [facility] [address] [place] [address] Dr. Nannette Baker MONO # 0.8 103/ul Normal 0.3-0.8 [facility] Comment on above: Performed By: #### C BC #### [facility] [address] [place] [address] Dr. Nannette Baker Monocytes/100 WBC (Bld) 6.0 % Normal 1.7-12.0 [facility] Comment on above: Performed By: #### C BC #### [facility] [address] [address] [address] Nannette Baker NEUT # 9.7 103/ul Critically high 1.4-6.5 [facility] Comment on above: Performed By: #### C BC #### [facility] [address] [address] [address] Nannette Baker Neutrophils/100 WBC (Bld) 74.3 % Normal 43.0-75.0 [facility] Comment on above: Performed By: #### C BC #### [facility] [address] [place] [address] Dr. Nannette Baker Platelet mean volume (Bld) [Entitic vol] 9.4 fL Critically low 9.5-13.5 [facility] Comment on above: Performed By: #### C BC #### [facility] [address] [place] [address] Dr. Nannette Baker PLT 247 103/ul Normal 150-450 [facility] Comment on above: Performed By: #### C BC #### [facility] [address] [place] [address] Dr. Nannette Baker RBC 3.69 106/ul Critically low 4.20-5.40 [facility] Comment on above: Performed By: #### C BC #### [facility] [address] [place] [address] Dr. Nannette Baker WBC 13.0 103/ul Critically high 4.0-11.0 [facility] Comment on above: Performed By: #### C BC #### [facility] [address] [place] [address] Dr. Nannette Baker CBC AUTO DIFFon 11-12-2021 BASO # 0.0 103/ul Normal 0.0-0.1 [facility] Comment on above: Performed By: #### T HCCONF #### [facility] [address] [place] [address] Dr. Nannette Baker Basophils/100 WBC (Bld) 0.3 % Normal 0.2-2.0 [facility] Comment on above: Performed By: #### T HCCONF #### [facility] [address] [place] [address] Dr. Nannette Baker EO # 0.1 103/ul Normal 0.0-0.7 [facility] Comment on above: Performed By: #### T HCCONF #### [facility] [address] [place] [address] Dr. Nannette Baker Eosinophils/100 WBC (Bld) 1.2 % Normal 0.9-7.0 [facility] Comment on above: Performed By: #### T HCCONF #### [facility] [address] [place] [address] Dr. Nannette Baker Erythrocyte distribution width (RBC) [Ratio] 12.0 % Normal 11.0-15.0 [facility] Comment on above: Performed By: #### T HCCONF #### [facility] [address] [place] [address] Dr. Nannette Baker Hematocrit (Bld) [Volume fraction] 33.0 % Critically low 36.0-48.0 [facility] Comment on above: Performed By: #### T HCCONF #### [facility] [address] [place] [address] Dr. Nannette Baker Hemoglobin (Bld) [Mass/Vol] 11.1 g/dL Critically low 12.0-16.0 [facility] Comment on above: Performed By: #### T HCCONF #### [facility] [address] [place] [address] Dr. Nannette Baker IG # 0.05 10e3/ul Critically high 0.00-0.03 [facility] Comment on above: Performed By: #### T HCCONF #### [facility] [address] [place] [address] Dr. Nannette Baker IG % 0.5 % Normal 0.0-0.5 [facility] Comment on above: Performed By: #### T HCCONF #### [facility] [address] [place] [address] Dr. Nannette Baker LYMPH # 1.8 103/ul Normal 1.2-3.8 [facility] Comment on above: Performed By: #### T HCCONF #### [facility] [address] [place] [address] Dr. Nannette Baker Lymphocytes/100 WBC (Bld) 16.4 % Critically low 20.5-60.0 [facility] Comment on above: Performed By: #### T HCCONF #### [facility] [address] [place] [address] Dr. Nannette Baker MANUAL DIFF REQ NO Normal [facility] Comment on above: Performed By: #### T HCCONF #### [facility] [address] [place] [address] Dr. Nannette Baker MCH (RBC) [Entitic mass] 30.7 pg Normal 26.7-34.0 [facility] Comment on above: Performed By: #### T HCCONF #### [facility] [address] [place] [address] Dr. Nannette Baker MCHC (RBC) [Mass/Vol] 33.6 g/dL Normal 29.9-35.2 [facility] Comment on above: Performed By: #### T HCCONF #### [facility] [address] [place] [address] Dr. Nannette Baker MCV (RBC) [Entitic vol] 91.4 fL Normal 81.0-99.0 [facility] Comment on above: Performed By: #### T HCCONF #### [facility] [address] [place] [address] Dr. Nannette Baker MONO # 0.6 103/ul Normal 0.3-0.8 [facility] Comment on above: Performed By: #### T HCCONF #### [facility] [address] [place] [address] Dr. Nannette Baker Monocytes/100 WBC (Bld) 5.7 % Normal 1.7-12.0 [facility] Comment on above: Performed By: #### T HCCONF #### [facility] [address] [place] [address] Dr. Nannette Baker NEUT # 8.4 103/ul Critically high 1.4-6.5 [facility] Comment on above: Performed By: #### T HCCONF #### [facility] [address] [place] [address] Dr. Nannette Baker Neutrophils/100 WBC (Bld) 75.9 % Critically high 43.0-75.0 [facility] Comment on above: Performed By: #### T HCCONF #### [facility] [address] [place] [address] Dr. Nannette Baker Platelet mean volume (Bld) [Entitic vol] 9.4 fL Critically low 9.5-13.5 [facility] Comment on above: Performed By: #### T HCCONF #### [facility] [address] [place] [address] Dr. Nannette Baker PLT 230 103/ul Normal 150-450 [facility] Comment on above: Performed By: #### T HCCONF #### [facility] [address] [place] [address] Dr. Nannette Baker RBC 3.61 106/ul Critically low 4.20-5.40 [facility] Comment on above: Performed By: #### T HCCONF #### [facility] [address] [place] [address] Dr. Nannette Baker WBC 11.1 103/ul Critically high 4.0-11.0 [facility] Comment on above: Performed By: #### T HCCONF #### [facility] [address] [place] [address] Dr. Nannette Baker Cov[facility]-19 PCR [facility]on 10-25 SARS-CoV-2 (COVID-19) RNA CHARLENE+probe Ql (Unsp spec) Not detected Normal NOT DETECTED [facility] Comment on above: Result Comment: When [...] for this test is supported by the [place] of Health and Human Service's declaration that [...] used). Performed By: #### C VDTBH #### [facility] [address] [place] [address] Dr. Nannette Baker DRUG SCREEN RAPID (URINE)on 11-12-2021 AMP Negative Normal NEGATIVE [facility] Comment on above: Performed By: #### D RUGRPD #### [facility] [address] [place] [address] Dr. Nannette Baker BAR Negative Normal NEGATIVE [facility] Comment on above: Performed By: #### D RUGRPD #### [facility] [address] [place] [address] Dr. Nannette Baker BUP Negative Normal NEGATIVE [facility] Comment on above: Performed By: #### D RUGRPD #### [facility] [address] [place] [address] Dr. Nannette Baker BZO Negative Normal NEGATIVE [facility] Comment on above: Performed By: #### D RUGRPD #### [facility] [address] [place] [address] Dr. Nannette Baker SORAIDA Negative Normal NEGATIVE [facility] Comment on above: Performed By: #### D RUGRPD #### [facility] [address] [place] [address] Dr. Nannette Baker CUT-OFFS SEE BELOW Normal [facility] Comment on above: Result Comment: AMP [...] ng/mL Performed By: #### D RUGRPD #### [facility] [address] [place] [address] Dr. Nannette Baker DRUG CUT HEADER DRUG CLASS TEST SYSTEM CUT-OFF CONCENTRATIONS ARE FOLLOWS: Normal [facility] Comment on above: Performed By: #### D RUGRPD #### [facility] [address] [place] [address] Dr. Nannette Baker mAMP Negative Normal NEGATIVE [facility] Comment on above: Performed By: #### D RUGRPD #### [facility] [address] [place] [address] Dr. Nannette Baker MTD Negative Normal NEGATIVE [facility] Comment on above: Performed By: #### D RUGRPD #### [facility] [address] [place] [address] Dr. Nannette Baker OPI Negative Normal NEGATIVE [facility] Comment on above: Performed By: #### D RUGRPD #### [facility] [address] [place] [address] Dr. Nannette Baker OXY Negative Normal NEGATIVE [facility] Comment on above: Performed By: #### D RUGRPD #### [facility] [address] [place] [address] Dr. Nannette Baker PCP Negative Normal NEGATIVE [facility] Comment on above: Performed By: #### D RUGRPD #### [facility] [address] [place] [address] Dr. Nannette Baker PPX Negative Normal NEGATIVE [facility] Comment on above: Performed By: #### D RUGRPD #### [facility] [address] [place] [address] Dr. Nannette Baker TCA Negative Normal NEGATIVE [facility] Comment on above: Performed By: #### D RUGRPD #### [facility] [address] [place] [address] Dr. Nannette Baker THC Positive Abnormal NEGATIVE [facility] Comment on above: Performed By: #### D RUGRPD #### [facility] [address] [place] [address] Dr. Nannette Baker TYPE AND SCREENon 11-12-2021 TYPE AND SCREEN Negative Normal [facility] Comment on above: Performed By: #### T NS #### [facility] [address] [place] [address] Dr. Nannette Baker GROUP B STREP CULTUREon [...] F Tetracycline >=16 R F Normal [facility] Comment on above: Performed By: #### C VDTBH #### [facility] [address] [place] [address] Dr. Nannette Baker US PREG GROWTHon 10-22-2021 [...] SAMIR SHANNON Date: 2021-10-22 16:21 Normal [facility] US PREG GROWTHon 09-25-2021 US PREG [...] SAMIR SHANNON Date: 2021-09-25 16:34 Normal [facility] CBC AUTO DIFFon 08-27-2021 BASO # 0.0 103/ul Normal 0.0-0.1 [facility] Comment on above: Performed By: #### C VDTBH #### [facility] [address] [place] [address] Dr. Nannette Baker Basophils/100 WBC (Bld) 0.3 % Normal 0.2-2.0 [facility] Comment on above: Performed By: #### C VDTBH #### [facility] [address] [place] [address] Dr. Nannette Baker EO # 0.1 103/ul Normal 0.0-0.7 [facility] Comment on above: Performed By: #### C VDTBH #### [facility] [address] [place] [address] Dr. Nannette Baker Eosinophils/100 WBC (Bld) 0.8 % Critically low 0.9-7.0 [facility] Comment on above: Performed By: #### C VDTBH #### [facility] [address] [place] [address] Dr. Nannette Baker Erythrocyte distribution width (RBC) [Ratio] 11.9 % Normal 11.0-15.0 [facility] Comment on above: Performed By: #### C VDTBH #### [facility] [address] [place] [address] Dr. Nannette Baker Hematocrit (Bld) [Volume fraction] 33.3 % Critically low 36.0-48.0 [facility] Comment on above: Performed By: #### C VDTBH #### [facility] [address] [place] [address] Dr. Nannette Baker Hemoglobin (Bld) [Mass/Vol] 11.3 g/dL Critically low 12.0-16.0 [facility] Comment on above: Performed By: #### C VDTBH #### [facility] [address] [place] [address] Dr. Nannette Baker IG # 0.07 10e3/ul Critically high 0.00-0.03 [facility] Comment on above: Performed By: #### C VDTBH #### [facility] [address] [place] [address] Dr. Nannette Baker IG % 0.6 % Critically high 0.0-0.5 [facility] Comment on above: Performed By: #### C VDTBH #### [facility] [address] [place] [address] Dr. Nannette Baker LYMPH # 1.3 103/ul Normal 1.2-3.8 [facility] Comment on above: Performed By: #### C VDTBH #### [facility] [address] [place] [address] Dr. Nannette Baker Lymphocytes/100 WBC (Bld) 10.8 % Critically low 20.5-60.0 [facility] Comment on above: Performed By: #### C VDTBH #### [facility] [address] [place] [address] Dr. Nannette Baker MANUAL DIFF REQ NO Normal [facility] Comment on above: Performed By: #### C VDTBH #### [facility] [address] [place] [address] Dr. Nannette Baker MCH (RBC) [Entitic mass] 32.1 pg Normal 26.7-34.0 [facility] Comment on above: Performed By: #### C VDTBH #### [facility] [address] [place] [address] Dr. Nannette Baker MCHC (RBC) [Mass/Vol] 33.9 g/dL Normal 29.9-35.2 [facility] Comment on above: Performed By: #### C VDTBH #### [facility] [address] [place] [address] Dr. Nannette Baker MCV (RBC) [Entitic vol] 94.6 fL Normal 81.0-99.0 [facility] Comment on above: Performed By: #### C VDTBH #### [facility] [address] [place] [address] Dr. Nannette Baker MONO # 0.5 103/ul Normal 0.3-0.8 [facility] Comment on above: Performed By: #### C VDTBH #### [facility] [address] [place] [address] Dr. Nannette Baker Monocytes/100 WBC (Bld) 4.5 % Normal 1.7-12.0 [facility] Comment on above: Performed By: #### C VDTBH #### [facility] [address] [place] [address] Dr. Nannette Baker NEUT # 10.1 103/ul Critically high 1.4-6.5 [facility] Comment on above: Performed By: #### C VDTBH #### [facility] [address] [place] [address] Dr. Nannette Baker Neutrophils/100 WBC (Bld) 83.0 % Critically high 43.0-75.0 [facility] Comment on above: Performed By: #### C VDTBH #### [facility] [address] [place] [address] Dr. Nannette Baker Platelet mean volume (Bld) [Entitic vol] 9.2 fL Critically low 9.5-13.5 [facility] Comment on above: Performed By: #### C VDTBH #### [facility] [address] [place] [address] Dr. Nannette Baker PLT 233 103/ul Normal 150-450 [facility] Comment on above: Performed By: #### C VDTBH #### [facility] [address] [place] [address] Dr. Nannette Baker RBC 3.52 106/ul Critically low 4.20-5.40 [facility] Comment on above: Performed By: #### C VDTBH #### [facility] [address] [place] [address] Dr. Nannette Baker WBC 12.1 103/ul Critically high 4.0-11.0 [facility] Comment on above: Performed By: #### C VDTBH #### [facility] [address] [place] [address] Dr. Nannette Baker GLUCOSE - 1HRon 08-23-2021 Glucose [Mass/Vol] 104 mg/dL Normal 74-106 [facility] Comment on above: Performed By: #### T HCCONF #### [facility] [address] [place] [address] Dr. Nannette Baker CHLAMYDIA/GONOCOCCUS CHARLENE ( AB/URINE/PAPon 08-02-2021 Chlamydia trachomatis, CHARLENE Negative Normal Negative [facility] Comment on above: Performed By: #### T HCCONF #### [facility] [address] [place] [address] Dr. Nannette Baker Neisseria gonorrhoeae, CHARLENE Negative Normal Negative [facility] Comment on above: Performed By: #### T HCCONF #### [facility] [address] [place] [address] Dr. Nannette Baker VAGINITIS/VAGINOSIS DNA PROB Dipak 08-01-2021 Niesha species Negative Normal Negative [facility] Comment on above: Performed By: #### V AGINT #### [facility] [address] [address] [address] Nannette Baker Gardnerella vaginalis Positive Abnormal Negative [facility] Comment on above: Performed By: #### V AGINT #### [facility] [address] [address] [address] Nannette Baker Trichomonas vaginalis Negative Normal Negative [facility] Comment on above: Performed By: #### V AGINT #### [facility] [address] [address] [address] Nannette Baker AFP MATERNAL FOR SPINA BIFID Aon 07-04-2021 AFP MoM 1.32 Normal [facility] Comment on above: Performed By: #### A FPMAT #### [facility] [address] [address] [address] Nannette Baker AFP Value 83.8 ng/mL Normal [facility] Comment on above: Performed By: #### A FPMAT #### [facility] [address] [address] [address] Nannette Baker AFP, Serum for Spina Bifida Report Normal [facility] Comment on above: Performed By: #### A FPMAT #### [facility] [address] [address] [address] Nannette Baker Comment Comment Normal [facility] Comment on above: Result Comment: Jamar Muñiz, Ph.D., [facility] Director . References: Available Upon Request. . Multiples Of Median Cutoffs For AFP Elevations Springer 2.5 Black 2.8 IDD 2.0 Twins 4.5 Abbreviation Definitions IDD - Insulin Dep Diabetes OSBR - Open Spina Bifida Risk . For further inquiries contact [employer] [facility] at [phone]. Performed By: #### A FPMAT #### [facility] [address] [address] [address] Nannette Patrick Age Collection Date 20.0 weeks Normal [facility] Comment on above: Performed By: #### A FPMAT #### [facility] [address] [place] [address] Dr. Nannette Baker Gestat, Age Based on MARIO [facility] Comment on above: Result Comment: 10/25 Recalculations are not recommended when gestational dating by LMP and ultrasound are within 10 days. Performed By: #### A FPMAT #### [facility] [address] [address] [address] Nannette Baker Insulin Dep Diabetes No Normal [facility] Comment on above: Performed By: #### A FPMAT #### [facility] [address] [address] [address] Nannette Baker Interpretation Comment Normal [facility] Comment on above: Result Comment: Inte rpretation: [...] Customer Services to discuss available options. The [employer] recommends amniocentesis be offered to women age 35 and older. Performed By: #### A FPMAT #### [facility] [address] [place] [address] Dr. Nannette Baker [age] Normal [facility] Comment on above: Performed By: #### A FPMAT #### [facility] [address] [address] [address] Nannette Baker Multiple Gestation No Normal [facility] Comment on above: Performed By: #### A FPMAT #### [facility] [address] [address] [address] Nannette Baker OSBR Risk 1 [place] [address] [facility] Comment on above: Performed By: #### A FPMAT #### [facility] [address] [address] [address] Nannette Baker PDF . Normal [facility] Comment on above: Performed By: #### A FPMAT #### [facility] [address] [address] [address] Nannette Baker Race Normal [facility] Comment on above: Performed By: #### A FPMAT #### [facility] [address] [place] [address] Dr. Nannette Baker Test Results: Negative Normal [facility] Comment on above: Performed By: #### A FPMAT #### [facility] [address] [place] [address] Dr. Nannette Baker US PREG ANATOMY SINGLEon [...] SAMIR SHANNON Date: 2021-07-02 12:33 Normal [facility] HEP B SURFACE ANTIGEN SCREEN on 05-02-2021 HBsAg Screen Negative Normal Negative [facility] Comment on above: Performed By: #### H BSANS #### [facility] [address] [place] [address] Dr. Nannette Baker HEPATITIS C VIRUS AB W/ REFL EX QUANTon 05-02-2021 HCV AB <0.1 Normal 0.0-0.9 [facility] Comment on above: Performed By: #### T HCCONF #### [facility] [address] [place] [address] Dr. Nannette Baker Interpretation: Comment Normal [facility] Comment on above: Result Comment: Nega tive Not infected with HCV, unless recent infection is suspected or other evidence exists to indicate HCV infection. Performed By: #### T HCCONF #### [facility] [address] [place] [address] Dr. Nannette Baker HIV 1 AND 2 WITH REFLEXon HIV Screen 4th Generation wRfx Non-Reactive Normal Non Reactive [facility] Comment on above: Result Comment: HIV Negative HIV-1/HIV-2 antibodies and HIV-1 p24 antigen were NOT detected. There is no laboratory evidence of HIV infection. Performed By: #### C VDTBH #### [facility] [address] [place] [address] Dr. Nannette Baker RPR QUANTon 05-02-2021 Rapid Plasma Reagin, Quant Non-Reactive Normal NonRea<1:1 [facility] Comment on above: Performed By: #### C VDTBH #### [facility] [address] [place] [address] Dr. Nannette Baker RUBELLA AB IGGon 05-02-2021 Rubella Antibodies, IgG 2.65 index Normal Immune >0.99 [facility] Comment on above: Result Comment: Non- immune <0.90 Equivocal 0.90 - 0.99 Immune >0.99 Performed By: #### R UBIGG #### [facility] [address] [place] [address] Dr. Nannette Baker CBC AUTO DIFFon 04-30-2021 BASO # 0.1 103/ul Normal 0.0-0.1 [facility] Comment on above: Performed By: #### T HCCONF #### [facility] [address] [place] [address] Dr. Nannette Baker Basophils/100 WBC (Bld) 0.5 % Normal 0.2-2.0 [facility] Comment on above: Performed By: #### T HCCONF #### [facility] [address] [place] [address] Dr. Nannette Baker EO # 0.2 103/ul Normal 0.0-0.7 [facility] Comment on above: Performed By: #### T HCCONF #### [facility] [address] [place] [address] Dr. Nannette Baker Eosinophils/100 WBC (Bld) 1.5 % Normal 0.9-7.0 [facility] Comment on above: Performed By: #### T HCCONF #### [facility] [address] [place] [address] Dr. Nannette Baker Erythrocyte distribution width (RBC) [Ratio] 11.9 % Normal 11.0-15.0 [facility] Comment on above: Performed By: #### T HCCONF #### [facility] [address] [place] [address] Dr. Nannette Baker Hematocrit (Bld) [Volume fraction] 33.9 % Critically low 36.0-48.0 [facility] Comment on above: Performed By: #### T HCCONF #### [facility] [address] [place] [address] Dr. Nannette Baker Hemoglobin (Bld) [Mass/Vol] 11.9 g/dL Critically low 12.0-16.0 [facility] Comment on above: Performed By: #### T HCCONF #### [facility] [address] [place] [address] Dr. Nannette Baker IG # 0.02 10e3/ul Normal 0.00-0.03 [facility] Comment on above: Performed By: #### T HCCONF #### [facility] [address] [place] [address] Dr. Nannette Baker IG % 0.2 % Normal 0.0-0.5 [facility] Comment on above: Performed By: #### T HCCONF #### [facility] [address] [address] [address] Nannette Baker LYMPH # 1.8 103/ul Normal 1.2-3.8 [facility] Comment on above: Performed By: #### T HCCONF #### [facility] [address] [address] [address] Nannette Baker Lymphocytes/100 WBC (Bld) 17.3 % Critically low 20.5-60.0 [facility] Comment on above: Performed By: #### T HCCONF #### [facility] [address] [place] [address] Dr. Nannette Baker MANUAL DIFF REQ NO Normal [facility] Comment on above: Performed By: #### T HCCONF #### [facility] [address] [place] [address] Dr. Nannette Baker MCH (RBC) [Entitic mass] 31.7 pg Normal 26.7-34.0 [facility] Comment on above: Performed By: #### T HCCONF #### [facility] [address] [place] [address] Dr. Nannette Baker MCHC (RBC) [Mass/Vol] 35.1 g/dL Normal 29.9-35.2 [facility] Comment on above: Performed By: #### T HCCONF #### [facility] [address] [place] [address] Dr. Nannette Baker MCV (RBC) [Entitic vol] 90.4 fL Normal 81.0-99.0 [facility] Comment on above: Performed By: #### T HCCONF #### [facility] [address] [place] [address] Dr. Nannette Baker MONO # 0.5 103/ul Normal 0.3-0.8 [facility] Comment on above: Performed By: #### T HCCONF #### [facility] [address] [place] [address] Dr. Nannette Baker Monocytes/100 WBC (Bld) 4.2 % Normal 1.7-12.0 [facility] Comment on above: Performed By: #### T HCCONF #### [facility] [address] [address] [address] Nannette Baker NEUT # 8.1 103/ul Critically high 1.4-6.5 [facility] Comment on above: Performed By: #### T HCCONF #### [facility] [address] [address] [address] Nannette Baker Neutrophils/100 WBC (Bld) 76.3 % Critically high 43.0-75.0 [facility] Comment on above: Performed By: #### T HCCONF #### [facility] [address] [address] [address] Nannette Baker Platelet mean volume (Bld) [Entitic vol] 9.3 fL Critically low 9.5-13.5 [facility] Comment on above: Performed By: #### T HCCONF #### [facility] [address] [address] [address] Nannette Baker PLT 257 103/ul Normal 150-450 [facility] Comment on above: Performed By: #### T HCCONF #### [facility] [address] [address] [address] Nannette Baker RBC 3.75 106/ul Critically low 4.20-5.40 [facility] Comment on above: Performed By: #### T HCCONF #### [facility] [address] [address] [address] Nannette Baker WBC 10.6 103/ul Normal 4.0-11.0 [facility] Comment on above: Performed By: #### T HCCONF #### [facility] [address] [address] [address] Nannette Baker CULTURE URINEon 04-30-2021 CULTURE URINE Culture Observations: LIGHT GROWTH OF MIXED GENITAL RENETTA. NO POTENTIAL PATHOGENS SEEN. Normal [facility] Comment on above: Performed By: #### U RCX #### [facility] [address] [address] [address] Nnanette Baker GLYCOHEMOGLOBIN A1Con 2021 ADA RECOMMENDATION ADA THERAPEUTIC TARGET 6.0 - 7.0 ACTION SUGGESTED > 7.0 Normal [facility] Comment on above: Performed By: #### T HCCONF #### [facility] [address] [place] [address] Dr. Nannette Baker Glucose [Mass/Vol] 91 mg/dL Normal [facility] Comment on above: Performed By: #### T HCCONF #### [facility] [address] [place] [address] Dr. Nannette Baker HbA1c (Bld) [Mass fraction] 4.8 % Normal <=6.0 [facility] Comment on above: Performed By: #### T HCCONF #### [facility] [address] [place] [address] Dr. Nannette Baker MANNY BOX TEST PT SEND OUTo n 04-30-2021 SENT TO REF LAB 04/30/2021 Normal [facility] Comment on above: Performed By: #### C VDTBH #### [facility] [address] [place] [address] Dr. Nannette Baker TYPE AND SCREENon 04-30-2021 TYPE AND SCREEN Negative Normal [facility] Comment on above: Performed By: #### C VDTBH #### [facility] [address] [place] [address] Dr. Nannette Baker US PREG TVon 04-05-2021 [...] by: WENDY POZO Date: 2021-04-05 09:09 Normal [facility] Vital Signs Date Time Vital Sign Value Performing Clinician Facility 01-02-2023 13:00-0500 Diastolic blood pressure 80 mm[Hg] [facility] 01-02-2023 13:00-0500 Heart rate 60 /min [facility] 01-02-2023 13:00-0500 Respiratory rate 14 /min [facility] 01-02-2023 13:00-0500 Systolic blood pressure 110 mm[Hg] [facility] 01-02-2023 10:19-0500 Diastolic blood pressure 81 mm[Hg] [facility] 01-02-2023 10:19-0500 Heart rate 67 /min [facility] 01-02-2023 10:19-0500 Mean blood pressure 90 mm[Hg] [facility] 01-02-2023 10:19-0500 Respiratory rate 16 /min [facility] 01-02-2023 10:19-0500 SaO2% (BldA) [Mass fraction] 100 % [facility] 01-02-2023 10:19-0500 Systolic blood pressure 107 mm[Hg] [facility] 01-02-2023 08:58-0500 Body temperature 97.88 [degF] [facility] 01-02-2023 08:58-0500 Diastolic blood pressure 77 mm[Hg] [facility] 01-02-2023 08:58-0500 Heart rate 77 /min [facility] 01-02-2023 08:58-0500 Respiratory rate 18 /min [facility] 01-02-2023 08:58-0500 Systolic blood pressure 125 mm[Hg] [facility] 06-21-2022 05:00-0400 Diastolic blood pressure 80 mm[Hg] Ritesh Crain [facility] 06-21-2022 05:00-0400 Heart rate 65 /min Ritesh Naida [facility] 06-21-2022 05:00-0400 Hourly Rounding Ritesh Naida [facility] 06-21-2022 05:00-0400 Promise to Return Ritesh Naida [facility] 06-21-2022 05:00-0400 Respiratory rate 12 /min Ritesh Naida [facility] 06-21-2022 05:00-0400 SaO2% (BldA) [Mass fraction] 99 % Ritesh Naida [facility] 06-21-2022 05:00-0400 Systolic blood pressure 121 mm[Hg] Ritesh Naida [facility] 06-21-2022 04:00-0400 Diastolic blood pressure 79 mm[Hg] Ritesh Naida [facility] 06-21-2022 04:00-0400 Heart rate 67 /min Ritesh Naida [facility] 06-21-2022 04:00-0400 Hourly Rounding Ritesh Naida [facility] 06-21-2022 04:00-0400 Promise to Return Ritesh Naida [facility] 06-21-2022 04:00-0400 Respiratory rate 16 /min Ritesh Naida [facility] 06-21-2022 04:00-0400 SaO2% (BldA) [Mass fraction] 100 % Ritesh Naida [facility] 06-21-2022 04:00-0400 Systolic blood pressure 116 mm[Hg] Ritesh Naida [facility] 06-21-2022 03:00-0400 Diastolic blood pressure 78 mm[Hg] Ritesh Naida [facility] 06-21-2022 03:00-0400 Heart rate 64 /min Ritesh Naida [facility] 06-21-2022 03:00-0400 Hourly Rounding Ritesh Pascal [facility] 06-21-2022 03:00-0400 Promise to Return Ritesh Naida [facility] 06-21-2022 03:00-0400 Systolic blood pressure 118 mm[Hg] Ritesh Naida [facility] 06-20-2022 23:24-0400 Body temperature 98.24 [degF] Ritesh Pascal [facility] 07-04-2021 02:06-0400 Body weight 62.[address] GINNY REBOLLEDO [facility] Comment on above: Performed By: #### AFPMAT #### [facility] [address] [place] [address] Dr. Nannette Baker Encounters Encounter Date Encounter Type Care Provider Facility Start: 01-22-2023 End: 01-22-2023 ambulatory Not Available Start: 01-02-2023 End: 01-02-2023 [place] department [place]ado [place] [place]: 01-02-2023 End: 01-02-2023 Emergency department patient visit Amado Westbren [facility] Start: 06-21-2022 End: 06-21-2022 Emergency department patient [place] Ritesh Pascal [place] [place]: 06-20-2022 End: 06-21-2022 Emergency department patient visit Ritesh Pascal [facility] Start: 11-12-2021 End: 11-13-2021 Evaluation and [...] and acellular pertussis vaccine, adsorbed Ritesh Pascal [facility] Payers Date Payer Category Payer Unknown [id number] 2.16.84 [id number] 1997 Unknown [id number] 2.16.84 [id number] 1997 Unknown [id number] 2.16.84 [id number] 1997 Unknown [id number] 2.16.84 [id number] 1997 Unknown [id number] 2.16.84 [id number] 1997 Unknown [id number] 2.16.84 [id number] 1997 Unknown [id number] 2.16.84 [id number] 1997 Unknown [id number] 2.16.84 [id number] 1997 Unknown [id number] 2.16.84 [id number] 1997 Unknown [id number] 2.16.84 [id number] 1997 Unknown [id number] 2.16.84 [id number] 1997 Unknown [id number] 2.16.8 [id number] 1997 Unknown [id number] 2.16.8 [id number] 1997 Unknown [id number] 2.16.840 .[id number] 1959 Self-pay 1959 Unknown [id number] 1959 Unknown [id number] Unknown [id number] 2.16.84 [id number] Social History Date Type Detail Facility Tobacco [facility] Comment on above: Denies. Tobacco smoking status No Smokin g Status Entered [facility] Sex Assigned At Female [facility] Functional Status Date Assessment Result Facility 01-02-2023 Functional Status N/A [facility] 06-20-2022 Functional Status N/A [facility] Hospital Discharge instructions 01-02-2023 Note Date & [...] your visits. Where to find more information [employer]: [email or web address] [employer]: [email or web address] [...] provider. Document Revised: 07/18/2020 Document Reviewed: 05/24/2020 [employer] Patient Education 2022 [employer]. 01/02/2023 13:45:55 Diarrhea, Adult Diarrhea, Adult Diarrhea [...] oral rehydration solution (ORS). This is an nbri-esn-mrvfotd medicine that helps return your body to [...] drinks, sports drinks, and soda. Eat bland, fejm-mq-ywgheb foods in small amounts as you are able. These foods include bananas, applesauce, rice, lean meats, toast, and crackers. Avoid alcohol. Avoid spicy or fatty foods. Medicines Take pvtu-dks-cgnpniz and prescription medicines only as told by your health care provider. If you were prescribed an antibiotic medicine, take it as told by your health care provider. Do not stop using the antibiotic even if you start to feel better. General instructions Wash your hands often using soap and water. If soap and water are not available, use a hand range conservationist. Others in the household should wash their [...] and water are not available, use hand range conservationist. Contact a health care provider if your diarrhea gets worse or you have new symptoms. Get help right away if you have signs of dehydration. This information is not intended to replace advice given to you by your health care provider. Make sure you discuss any questions you have with your health care provider. Document Revised: 08/21/2021 Document Reviewed: 08/21/2021 [employer] Patient Education 2022 [employer]icket[employer]. 01/02/2023 13:45:55 Nausea and Vomiting, Adult Nausea [...] water added (diluted fruit juice). Eat bland, zcnm-qz-kqwgch foods in small amounts as you are able. These foods include bananas, applesauce, rice, lean meats, toast, and crackers. Avoid fluids that contain a lot of sugar or caffeine, such as energy drinks, sports drinks, and soda. Avoid alcohol. Avoid spicy or fatty foods. General instructions Take pifx-xtr-ipswqot and prescription medicines only as told by your health care provider. Drink enough fluid to keep your urine pale yellow. Wash your hands often using soap and water for at least 20 seconds. If soap and water are not available, use hand range conservationist. Make sure that everyone in your household [...] eating and drinking to prevent dehydration. Take njlu-ahx-myqaxzs and prescription medicines only as told by [...] provider. Document Revised: 08/16/2021 Document Reviewed: 08/16/2021 [employer] Patient Education 2022 Ticket[employer]Event. 01/02/2023 13:45:55 Abdominal Pain, Adult Abdominal Pain, [...] Follow these instructions at home: Medicines Take spql-bpi-zrxkpau and prescription medicines only as told by [...] Watch your condition for any changes. Take mzzw-xpg-sfihniu and prescription medicines only as told by [...] provider. Document Revised: 03/30/2020 Document Reviewed: 06/20/2019 [employer] Patient Education 2022 [employer] Follow Up Care 01/02/2023 08:54:27 With:Ginny REBOLLEDO Address: [address] [place] [address] [facility] (1) When:01/05/2023 13:27:46 Comments:Make sure to follow-up with Dr. Rebolledo for your . Follow-up with Dr. Cuellar for the belly pain. Return to the emergency room if the abdominal pain recurs, vomiting recurs, vaginal bleeding or any new symptoms. With:Patricia Murrieta Address:Unknown When:01/05/2023 13:27:38 [facility] Evaluation + Plan note 01-02-2023 Note Date & Type Note Facility 01-02-2023 Evaluation + Plan note Extrac jose alfredo from: Title:ED Note Author:Amado Rodriguez M.D. [...] QID, # 20 cap(s), Refills(s) 0, Pharmacy: [facility]/pharmacy #[id number], 160.1, cm, 01/02/23 9:00:00 EST, Height/Length [...] Nausea/Vomiting, # 12 tab(s), Refills(s) 0, Pharmacy: [facility]/pharmacy #[id number], 160.1, cm, 01/02/23 9:00:00 EST, Height/Length [...] US Gallbladder US 1st Trimester US Transvaginal [facility] Evaluation + Plan note 06-21-2022 Note [...] Pain, # 14 tab(s), Refills(s) 0, Pharmacy: [facility]/pharmacy #[id number], 160, cm, 06/20/22 23:30:00 EDT, Height/Length [...] Nausea/Vomiting, # 16 tab(s), Refills(s) 0, Pharmacy: [facility]/pharmacy #[id number], 160, cm, 06/20/22 23:30:00 EDT, Height/Length [...] With Cult Reflex US Pelvis Non-OB Complete [facility] Hospital Discharge instructions 06-21-2022 Note Date [...] Follow these instructions at home: Medicines Take duhm-rrt-gjgxrfc and prescription medicines only as told by [...] Watch your condition for any changes. Take gpeb-ygo-ddmwdrb and prescription medicines only as told by [...] provider. Document Revised: 03/30/2020 Document Reviewed: 06/20/2019 [employer] Patient Education 2022 [employer]icket[employer]Event. Follow Up Care 06/20/2022 23:21:21 With:Keith GARCIA Address: [address] [place] [phone] (1) When:06/24/2022 [facility] Hospital course Narrative Note Date & Type Note Facility Hospital course Narrative No data available for this section [facility] Progress note Note Date & Type Note Facility Progress note No data available for this section [facility] Summary Purpose Family History No Family [...] DATE CREATED AUTHOR AUTHOR'S ORGANIZ ATION 01/04/2023 [facility] DATE CREATED AUTHOR AUTHOR'S ORGANIZ ATION 01/25/2023 [facility] EPIC Patient Care team informatio n (unrecognized section and content) Personnel Name: Keith GARCIA DO Address: Address: [address] [place] [id number] Personnel Name: NONE, XXXX Address: Address: [facility] FOR RECORDS PERTAINING TO PATIENTS WHO ARE [...] BE BASED ON THE PRIMARY CLINICAL RECORDS. [facility] [facility]. provides no warranty or guarantee of the accuracy or completeness of information in this document.
[2023-03-10 11:13] LABS: Age Gdln ACOG Testing Note (.); IGP, rfx Aptima HPV ASCU Note (.)
== END 2023-03-05 20:59 | disposition home or self-care (01) ==
LOC: LAB 20:58
PROVIDERS: Visit Provider Obstetrics & Gynecology
DX: Z01.419 Encounter for gynecological examination (general) (routine) without abnormal findings (principal)
CPT/HCPCS: G0145

== ENCOUNTER 2023-04-03 13:52 | Outpatient (OUT) | payer BC, SELFPAY ==
[2023-05-26 13:46] LABS: Results Report
[2023-05-26 13:47] LABS: Insulin Dep Diabetes No
[2023-05-26 13:48] LABS: OSBR Risk 1 IN 10000
== END 2023-04-03 13:53 | disposition home or self-care (01) ==
LOC: LAB 13:53
PROVIDERS: Visit Provider Obstetrics & Gynecology
DX: Z34.92 Encounter for supervision of normal pregnancy, unspecified, second trimester (principal)
CPT/HCPCS: 36415; 82105

== ENCOUNTER 2023-04-09 08:36 | Outpatient (OUT) | payer BC, SELFPAY ==
--- NOTE | 2023-04-09 08:38 | US_ITS ---
[address] [address] Patient Name: LEENA CORDERO MRN: [id number]:[id number] date: 1995 Sex: F Assigned Patient Location: [facility] Current Patient Location: [facility] Accession/Order Number: [id number] Exam Date: 04/09/2023 08:39 Report Date: 04/09/2023 10:23 At the request of: GINNY JAMES Procedure: US OB anatomy EXAMINATION: US OB anatomy, US OB transvaginal HISTORY: ANATOMY COMPARISON: Ultrasound OB transvaginal 01/22/2023 TECHNIQUE: Transabdominal sonographic examination was performed for obstetrical and evaluation. FINDINGS: Number: 1 Heart Rate: 151.0 bpm H.B. /min Amniotic Fluid Volume: Subjectively normal Placental Location: POSTERIOR with lower margin 2.7 cm from os. Cervix Length: 4.6 cm, closed. ANATOMY: Normal Structures -cerebellum, choroid plexus, cisterna magna, lateral cerebral ventricles, orbits, midline falx, hard palate, four-chamber heart, RVOT, LVOT, stomach, kidneys, bladder, umbilical cord insertion into abdomen, three-vessel cord, cervical spine, thoracic spine, lumbar spine, sacral spine, right upper extremity, left upper extremity, right lower extremity, left lower extremity. SUBOPTIMALLY SEEN: None ABNORMALITIES: None BIOMETRY: BPD: 4.2 cm 18 weeks 4 days ; 6% HC: 17.3 cm 19 weeks 6 days; 36% AC: 15.1 cm 20 weeks 2 days; 55% FL: 3.4 cm 20 weeks 5 days ; 67% EFW:347.9 grams; 66% FL/AC: 22.6 FL/BPD: 81.5 HC/AC: 1.2 GESTATIONAL AGE: Age by EDC: 20 weeks 0 days MARIO by EDC: 08/27/2023 Age by current US: 19 weeks 6 days MARIO by current US: 08/28/2023 US/US OB anatomy IMPRESSION: 1. Single live intrauterine with growth detailed above. 2. Low-lying posterior placenta. Electronically authenticated by: SAMIR SHANNON Date: 04/09/2023 10:23
--- NOTE | 2023-04-09 08:38 | US_ITS ---
[address] [address] Patient Name: LEENA CORDERO MRN: [facility]:[id number] date: 1995 Sex: F Assigned Patient Location: [facility] Current Patient Location: [facility] Accession/Order Number: [id number] Exam Date: 04/09/2023 08:39 Report Date: 04/09/2023 10:23 At the request of: GINNY JAMES Procedure: US OB transvaginal EXAMINATION: US OB anatomy, US OB transvaginal HISTORY: ANATOMY COMPARISON: Ultrasound OB transvaginal 01/22/2023 TECHNIQUE: Transabdominal sonographic examination was performed for obstetrical and evaluation. FINDINGS: Number: 1 Heart Rate: 151.0 bpm H.B. /min Amniotic Fluid Volume: Subjectively normal Placental Location: POSTERIOR with lower margin 2.7 cm from os. Cervix Length: 4.6 cm, closed. ANATOMY: Normal Structures -cerebellum, choroid plexus, cisterna magna, lateral cerebral ventricles, orbits, midline falx, hard palate, four-chamber heart, RVOT, LVOT, stomach, kidneys, bladder, umbilical cord insertion into abdomen, three-vessel cord, cervical spine, thoracic spine, lumbar spine, sacral spine, right upper extremity, left upper extremity, right lower extremity, left lower extremity. SUBOPTIMALLY SEEN: None ABNORMALITIES: None BIOMETRY: BPD: 4.2 cm 18 weeks 4 days ; 6% HC: 17.3 cm 19 weeks 6 days; 36% AC: 15.1 cm 20 weeks 2 days; 55% FL: 3.4 cm 20 weeks 5 days ; 67% EFW:347.9 grams; 66% FL/AC: 22.6 FL/BPD: 81.5 HC/AC: 1.2 GESTATIONAL AGE: Age by EDC: 20 weeks 0 days MARIO by EDC: 08/27/2023 Age by current US: 19 weeks 6 days MARIO by current US: 08/28/2023 US/US OB transvaginal IMPRESSION: 1. Single live intrauterine with growth detailed above. 2. Low-lying posterior placenta. Electronically authenticated by: SAMIR SHANNON Date: 04/09/2023 10:23
--- OUTSIDE RECORDS SUMMARY | 2023-04-09 08:43 | XMS_ITS | CCD ---
Author Name Unknown Address [address] [place] [address] Organization [facility] Care Team Providers Care Statement Clerk Name Role Phone ERIKA, DR GROSS Admitting [...] Care Unavailable ERIKA, DR GROSS Admitting Unavailable HENLEY, DR WENDY Christiansen Consulting Unavailable ERIKA, DR [...] Care Unavailable KARASIK, DR WHITTEN Attending Unavailable KARASIK, DR WHITTEN Admitting Unavailable KARASIK, DR WHITTEN Consulting Unavailable ERIKA, DR GROSS Admitting Unavailable MISC, DR LOPES Primary Care Unavailable ERIKA, DR GROSS Consulting Unavailable ERIKA, DR GROSS Attending Unavailable Keith GARCIA Primary Care Physician NONE, XXXX Primary Care Physician Unavailab Ritesh David Attending Unavailable Amado Rodriguez Attending Unavailable GINNY REBOLLEDO Attending Unavailable Medications Current Medications Medication Drug [...] QID, # 20 cap(s), Refills(s) 0, Pharmacy: [facility]/pharmacy #[id number], 160.1, cm, 01/02/23 9:00:00 EST, Height/Length Dosing, 58.8, kg, 01/02/23 9:00:00 EST, Weight Dosing Start Date: 01/02/23 Status: Ordered ethinyl estradiol 0.02 mg / norethindrone acetate 1 mg oral tablet (1 source) Estrogen Start: 08-14-2020 Microgestin / 20 mcg-1 mg oral tablet Refill(s) 0 Start Date: 08/14/20 Status: Ordered naproxen 500 mg delayed release oral tablet (1 source) Nonsteroidal Anti-inflammatory Drug Start: 06-21-2022 take 1 tablet by mouth twice daily as needed for pain naproxen 500 mg oral enteric coated tablet 500 mg = 1 tab(s), Oral, BID, PRN Pain, # 14 tab(s), Refills(s) 0, [id number], 160, cm, 06/20/22 23:30:00 EDT, Height/Length Dosing, 55, kg, 06/20/22 23:30:00 EDT, Weight Dosing Start Date: 06/21/22 Status: Ordered Zofran ODT 4 mg Tab-Dis (2 sources) Start: 01-02-2023 take 1 tablet by mouth every six hours as needed for nausea Zofran ODT 4 mg Tab-Dis 4 mg = 1 tab(s), Oral, q6hr, PRN Nausea/Vomiting, # 12 tab(s), Refills(s) 0, [id number], 160.1, cm, 01/02/23 9:00:00 EST, Height/Length Dosing, 58.8, kg, 01/02/23 9:00:00 EST, Weight Dosing Start Date: 01/02/23 Status: Ordered Start: 06-21-2022 take 1 tablet by mandy th every eight hours as needed for nausea Zofran ODT 4 mg Tab-Dis 4 mg = 1 tab(s), Oral, q8hr, PRN Nausea/Vomiting, # 16 tab(s), Refills(s) 0, [id number], 160, cm, 06/20/22 23:30:00 EDT, Height/Length [...] Basophils/100 WBC (Bld) 0.2 % Normal 0.0-2.0 [facility] Comment on above: Order Comment: Order Added by Discern Expert. Performed By: #### 2 743305, 01599172, 5369931, 5650078, 0985639, 6649546, 73824761 ####[facility] [address] [place] [address] Basophils/Leukocytes Auto (Bld) [Pure # fraction] 0.0 E9/L Normal 0.0-0.2 [facility] Comment on above: Order Comment: Order Added by Discern Expert. Performed By: #### 2 849312, 96090892, 2945767, 0659566, 2192627, 8950255, 84478097 ####[facility] [address] [place] [address] Eosinophils/100 WBC (Bld) 0.1 % Normal 0.0-8.0 [facility] Comment on above: Order Comment: Order Added by Discern Expert. Performed By: #### 2 841140, 67887643, 8139608, 0803043, 9669147, 9625568, 80318356 ####[facility] [address] [place] [address] Eosinophils/Leukocytes Auto (Bld) [Pure # fraction] 0.0 E9/L Normal 0.0-0.5 [facility] Comment on above: Order Comment: Order Added by Mendy Expert. Performed By: #### 2 754258, 77239395, 7024390, 4531025, 9160819, 1075450, 99330670 ####[facility] [address] [place] [address] Lymphocytes/100 WBC (Bld) 8.0 % Low 14.0-50.0 [facility] Comment on above: Order Comment: Order Added by Discern Expert. Performed By: #### 2 396428, 61357437, 1250601, 2836078, 6151743, 5277923, 48717602 ####[facility] [address] [place] [address] Lymphocytes/Leukocytes Auto (Bld) [Pure # fraction] 1.1 E9/L Normal 1.0-4.0 [facility] Comment on above: Order Comment: Order Added by Mendy Expert. Performed By: #### 2 053657, 44513603, 2249005, 2632147, 6798751, 9960130, 69714546 ####[facility] [address] [place] [address] Monocytes/100 WBC (Bld) 2.9 % Low 4.0-14.0 [facility] Comment on above: Order Comment: Order Added by Mendy Expert. Performed By: #### 2 621616, 58742486, 2224771, 8056372, 8418491, 3502898, 59658190 ####[facility] [address] [place] [address] Monocytes/Leukocytes Auto (Bld) [Pure # fraction] 0.4 E9/L Normal 0.2-1.0 [facility] Comment on above: Order Comment: Order Added by Mendy Expert. Performed By: #### 2 039924, 60223034, 1648414, 3645940, 5468470, 6069855, 66838627 ####[facility] [address] [place] [address] Neutrophils/100 WBC (Bld) 88.8 % High 36.0-75.0 [facility] Comment on above: Order Comment: Order Added by Discern Expert. Performed By: #### 2 548662, 28046831, 6191319, 5489877, 9801966, 0401502, 77333627 ####[facility] [address] [place] [address] Neutrophils/Leukocytes Auto (Bld) [Pure # fraction] 12.0 E9/L High 2.0-7.5 [facility] Comment on above: Order Comment: Order Added by Discern Expert. Performed By: #### 2 336357, 99576161, 7683167, 5373402, 9345012, 3016558, 30083440 ####[facility] [address] [place] [address] BMPon 01-02-2023 Creatinine [Mass/Vol] 0.5 mg/dL Normal 0.5-1.3 [facility] Comment on above: Performed By: #### 2 862450, 79747630, 7196147, 1499396, 3372177, 2244681, 26861513 ####[facility] [address] [place] [address] Urea nitrogen [Mass/Vol] 10 mg/dL Normal 5-21 [facility] Comment on above: Performed By: #### 2 238488, 42116497, 2523038, 7081160, 4048359, 6292918, 55520625 ####[facility] [address] [place] [address] Urea nitrogen/Creatinine [Mass ratio] 20 No Units Normal 10-20 [facility] Comment on above: Performed By: #### 2 862844, 12241255, 4809265, 3031101, 7089391, 0859880, 26977224 ####[facility] [address] [place] [address] Anion gap [Moles/Vol] 14 mmol/L Normal 6-16 [facility] Comment on above: Performed By: #### 2 485946, 04542644, 4177278, 3528602, 2188982, 8399231, 23838181 ####[facility] [address] [place] [address] Calcium [Mass/Vol] 8.9 mg/dL Normal 8.9-11.1 [facility] Comment on above: Performed By: #### 2 615342, 89379334, 9064006, 8784822, 5446904, 6771715, 57356171 ####[facility] [address] [place] [address] Chloride [Moles/Vol] 103 mmol/L Normal 101-111 [facility] Comment on above: Performed By: #### 2 888159, 18700015, 7247976, 1438063, 1156313, 6647585, 93673610 ####[facility] [address] [place] [address] CO2 [Moles/Vol] 21 mmol/L Normal 21-31 [facility] Comment on above: Performed By: #### 2 538635, 65933933, 0605242, 6758945, 1091246, 0544306, 90454681 ####[facility] [address] [place] [address] Glucose [Mass/Vol] 119 mg/dL Normal 55-199 [facility] Comment on above: Result Comment: If t his glucose result represents a fasting glucose, interpretation should refer to the following reference range: 55-99 mg/dL Performed By: #### 2 285910, 99680977, 2354447, 4588789, 6443017, 2307301, 60702525 ####[facility] [address] [facility] [place] [address] Potassium [Moles/Vol] 3.2 mmol/L Low 3.5-5.3 [facility] Comment on above: Performed By: #### 2 716811, 27931787, 3635276, 1202381, 9305744, 9079663, 85304035 ####[facility] [address] [place] [address] Sodium [Moles/Vol] 135 mmol/L Normal 135-145 [facility] Comment on above: Performed By: #### 2 551582, 11860054, 3831061, 4613806, 4194220, 6579433, 66118023 ####[facility] [address] [place] [address] BhCG Quanton 01-02-2023 [place] [address] m[IU]/mL High 1-3 [facility] Comment on above: Result Comment: GEST ATIONAL AGE HCG RANGE (mIU/mL) NON- <1-3 0.2-1 WEEKS 5-50 1-2 WEEKS 50-500 2-3 WEEKS 100-5,000 3-4 WEEKS 500-10,000 4-5 WEEKS 1,000-50,000 5-6 WEEKS 10,000-100,000 6-8 WEEKS 15,000-200,000 8-12 WEEKS 10,000-100,000 Performed By: #### 2 808536 ####[facility] [address] [place] [address] CBC w/ Auto Diffon Erythrocyte distribution width (RBC) [Ratio] 12.3 % Normal 10.9-14.2 [facility] Comment on above: Performed By: #### 2 891026, 51784064, 2797799, 7909215, 4198163, 1285612, 97885439 ####[address] [place] [address] Hematocrit (Bld) [Volume fraction] 36.5 % Normal 34.0-46.0 [facility] Comment on above: Performed By: #### 2 843848, 33912040, 4917966, 9705120, 4941237, 4846071, 07789971 ####[facility] [address] [place] [address] Hemoglobin (Bld) [Mass/Vol] 12.4 g/dL Normal 12.0-16.0 [facility] Comment on above: Performed By: #### 2 759122, 02715110, 2241116, 3428673, 2436151, 2376438, 48904353 ####[facility] [address] [place] [address] MCH (RBC) [Entitic mass] 30.1 pg Normal 27.0-34.0 [facility] Comment on above: Performed By: #### 2 491077, 63739209, 6985728, 7198631, 7564790, 5082685, 98356432 ####[address] [address] MCHC (RBC) [Mass/Vol] 33.9 g/dL Normal 31.4-36.0 [facility] Comment on above: Performed By: #### 2 786941, 88562723, 4357919, 5839449, 7482872, 7442073, 43585184 ####[address] [address] MCV (RBC) [Entitic vol] 88.8 fL Normal 80.0-100.0 [facility] Comment on above: Performed By: #### 2 840655, 28929222, 7835083, 5763909, 9300231, 2667975, 64122404 ####[address] [address] Platelet mean volume (Bld) [Entitic vol] 7.4 fL Normal 6.4-10.8 [facility] Comment on above: Performed By: #### 2 940850, 38923811, 4510062, 6992212, 0001304, 7746444, 31760831 ####[address] [address] Platelets (Bld) [#/Vol] 283.0 E9/L Normal 150.0-500.0 [facility] Comment on above: Performed By: #### 2 721761, 80402966, 7562130, 6498668, 7648858, 1038954, 17393893 ####[address] [address] RBC (Bld) [#/Vol] 4.1 E12/L Low 4.3-5.9 [facility] Comment on above: Performed By: #### 2 483634, 21735382, 1683632, 2529271, 9977958, 4784265, 04466048 ####[facility] [address] [place] [address] WBC corrected for nucl RBC Auto (Bld) [#/Vol] 13.5 E9/L High 4.0-11.0 [facility] Comment on above: Performed By: #### 2 038543, 65073327, 2832701, 9206711, 7452922, 1491770, 97007793 ####[facility] [address] [place] [address] CHEMISTRYOrdered By: SYSTEM SYSTEM on 01-02-2023 Albumin [...] mEq/L [facility] AST [Catalytic activity/Vol] 26 [iU]/d Normal [...] 1 11 mmol/L [facility] CO2 [Moles/Vol] 21 mmol/L Normal 21 - 31 mmol/L [facility] Creatinine [Mass/Vol] 0.5 mg/dL Normal 0.5 - 1.3 mg/dL [facility] GFR/1.73 sq M.predicted among non-blacks MDRD (S/P/Bld) [Vol rate/Area] 133 mL/min/1.73 m2 Normal >=59mL/min/1 .73 m2 [facility] Comment on above: Interpretive Data: C hronic kidney disease could be indicated at eGFR's of less than 60 mL/min/1.73m2. Kidney failure is indicated at less than 15 mL/min/1.73m2. Globulin (S) [Mass/Vol] 3.5 g/dL Normal 1.4 - 4.0 gm/dL [facility] Glucose [Mass/Vol] 119 mg/dL Normal 55 - 199 mg/dL [facility] Comment on above: Interpretive Data: I f this glucose result represents a fasting glucose, interpretation should refer to the following reference range: 55-99 mg/[place] [address] m[IU]/mL High 1 - 3 mIU/mL [facility] Comment on above: Interpretive Data: G ESTATIONAL AGE HCG RANGE (mIU/mL) NON- <1-3 0.2-1 WEEKS 5-50 1-2 WEEKS 50-500 2-3 WEEKS 100-5,000 3-4 WEEKS 500-10,000 4-5 WEEKS 1,000-50,000 5-6 WEEKS 10,000-100,000 6-8 WEEKS 15,000-200,000 8-12 WEEKS 10,000-100,000 Lipase [Catalytic activity/Vol] 79 U/L High 13 - 58 unit/L [facility] Potassium [Moles/Vol] 3.2 mmol/L Low 3.5 - 5.3 mmol/L [facility] Protein [Mass/Vol] 7.6 g/dL Normal 6.0 - 7.8 gm/dL [facility] Sodium [Moles/Vol] 135 mmol/L Normal 135 - 145 mmol/L [facility] Urea nitrogen [Mass/Vol] 10 mg/dL Normal 5 - 21 mg/dL [facility] Urea nitrogen/Creatinine [Mass ratio] 20 mg/mg Normal 10 - 20 [facility] COAGULATIONOrdered By: Natalia Wang on 01-02-2023 aPTT Coag (PPP) [Time] 29.4 s Normal 25.1 - 36.5 second(s) [facility] Auto Coag Comment on above: Interpretive Data: P yunior 15 days - 4 weeks 1 - [...] the same coagulation reagent and instrumentation as [facility]. Currently there are no coagulation studies available worldwide for children to 14 days, and no normal ranges. Heparin therapeutic range (represented by Anti-Factor Xa activity of 0.2 - 0.4 U/mL) corresponds to PTT of 56.6 - 109.0 sec. INR Coag (PPP) [Relative time] 1.1 {INR} Invalid Interpretation Code [facility] Auto Coag Comment on above: Interpretive Data: I NR results are specifically intended to assess patients stabilized on long-term Anticoagulation therapy suggested INR s Less Intensive Anticoagulation 2.0 3.0 Conventional Range 3.0 4.5 PT Coag (PPP) [Time] 12.1 s Normal 9.4 - 1 2.5 second(s) [facility] Auto Coag Comment on above: Interpretive Data: [...] the same coagulation reagent and instrumentation as [facility]. Currently there are no coagulation studies available worldwide for children to 14 days, and no normal ranges. Consent for Treatmenton 12-24 Consent for Treatment [id number] #1.00TIFF Normal [facility] Discharge Instructionson Discharge Instructions [id number] 6#1.00TIFF Normal [facility] ED Clinical Summaryon 2022 ED Clinical Summary [place] [id number] ED Clinical Summary Person Information Name: LEENA CORDERO Zina/[facility] Age: 27 Years : 1995 Sex: Female Language: Albanian PCP: NONE, XXXX Marital Status: Single Visit [...] 01/02/2023 13:45:55 01/02/2023 13:45:55 01/02/2023 13:45:55 ADDRESS: [address] [place] [id number] PHYS DOC NOTES: MEDICAL INFORMATION: Prescriptions Given: New Medications [facility]/pharmacy #[id number], [address] [place], [place] [id number], [phone] dicyclomine (Bentyl 10 mg Cap) 2 Capsules [...] Follow up: With: Address: When: Ginny REBOLLEDO [facility], [address] [place] [address] , [place] [address] Business (1) In 3 days 01/05/2023 Comments: Make sure to follow-up with Dr. Rebolledo for your . Follow-up with Dr. Cuellar for the belly pain. Return to the emergency room if the abdominal pain recurs, vomiting recurs, vaginal bleeding or any new symptoms. With: Address: When: Patricia Murrieta In 3 days 01/05/2023 DIAGNOSIS: 1:Abdominal pain; 2:Vomiting and diarrhea; 3:Intrauterine ; Diarrhea, unspecified Normal [facility] ED Note-Physicianon 01-03-20 ED Note-Physician Basic [...] and Complexity of Problems Differential Diagnosis: [] [facility] Data External documents reviewed: [] My EKG [...] QID, # 20 cap(s), Refills(s) 0, Pharmacy: [facility]/pharmacy #[id number], 160.1, cm, 01/02/23 9:00:00 EST, Height/Length [...] Nausea/Vomiting, # 12 tab(s), Refills(s) 0, Pharmacy: [facility]/pharmacy #[id number], 160.1, cm, 01/02/23 9:00:00 EST, Height/Length Dosing, 58.8, kg, 01/02/23 9:00:00 EST, Weight Dosing Sodium Chloride 0.9% intravenous solution, 1,000 mL, Soln-IV, IV, Once, Stop date 01/02/23 9:08:00 EST, STAT, Start date 01/02/23 9:08:00 E (more content not included)... Normal [facility] Comment on above: Result Comment: Elec tronically Signed By: Jennifer Lopez, Amado Nixon\.anita\Date and Time Signed: 01/02/23 16:52 EST ED [...] added (diluted fruit juice). ? Eat bland, qrnx-ja-wxvljj foods in small amounts as you are able. These foods include bananas, applesauce, rice, lean meats, toast, and crackers. ? Avoid fluids that contain a lot of sugar or caffeine, such as energy drinks, sports drinks, and soda. ? Avoid alcohol. ? Avoid spicy or fatty foods. General instructions ? Take qdnh-buz-waeqoer and prescription medicines only as told by your health care provider. ? Drink enough fluid to keep your urine pale yellow. ? Wash your hands often using soap and water for at least 20 seconds. If soap and water are not available, use hand survey project manager. ? Make sure that everyone in your [...] and drinking to prevent dehydration. ? Take mhuw-izz-fjsnspy and prescription medicines only as told by [...] provider. Document Revised: 08/16/2021 Document Reviewed: 08/16/2021 [employer] Patient Education ? 2022 [employer] Abdominal Pain, Adult Pain in the [...] these instructions at home: Medicines ? Take gpda-cyx-zrgmyyz and prescription medicines only as told by your health care provider. ? Do not take a laxative unless told by your health care provider. General instructions ? Watch your condition for any changes. ? Drink enough fluid to keep your urine pale yellow. ? Keep all follow-up visits as told by your h (more content not included)... Normal [facility] ED Patient Summaryon 023 ED Patient Summary [address] [address] Patient Discharge Instructions Person Information Name: LEENA CORDERO Age: 27 Years Arrival Date: 01/02/2023 08:53:06 Discharge Diagnosis: 1:Abdominal pain; 2:Vomiting and diarrhea; 3:Intrauterine ; Diarrhea, unspecified Primary Care Physician: NONE, XXXX Provider Information Primary Provider: Amado Rodriguez M.D. Advanced Bid Writer:None The exam and treatment you received in the Emergency Department were for an urgent problem and are not intended as complete care. It is important that you follow up with a doctor, nurse practitioner, or physician?s child nutrition assistant for ongoing care. If your symptoms [...] Follow-up Instructions: With: Address: When: Ginny REBOLLEDO [facility], [address] [place] [address] [place] [id number] [facility] () In 3 days 01/05/2023 Comments: Make [...] opioids can be used to help relieve okwolekh-bu-jartur pain and are often prescribed following a [...] your community (more content not included)... Normal [facility] HEMATOLOGYOrdered By: SYSTEM SYSTEM on 01-02-2023 [...] 36.5 % Normal 34.0 - 46.0 % [facility] HemeAutoSS Hemoglobin (Bld) [Mass/Vol] 12.4 g/dL Normal [...] 4.1 E12/L Low 4.3 - 5.9 E12/L [facility] HemeAutoSS WBC corrected for nucl RBC Auto (Bld) [#/Vol] 13.5 E9/L High 4.0 - 11.0 E9/L [facility] HemeAutoSS Hep Func Panelon 01-02-2023 Albumin [Mass/Vol] 4.1 g/dL Normal 3.3-5.0 [facility] Comment on above: Performed By: #### 2 926985, 37665316, 3458385, 7479371, 5163249, 6089579, 48279625 ####[facility] [address] [place] [address] Albumin/Globulin (S) [Mass conc ratio] 1.2 Normal 1.1-2.2 [facility] Comment on above: Performed By: #### 2 278987, 60503050, 7827501, 1799617, 2348245, 0754003, 13166625 ####[facility] [address] [place] [address] ALP [Catalytic activity/Vol] 57 Int._Unit/L Normal 21-98 [facility] Comment on above: Performed By: #### 2 216832, 35273708, 5671062, 3847622, 4604867, 4456898, 44892620 ####[facility] [address] [place] [address] ALT No additional P-5'-P [Catalytic activity/Vol] 13 Int._Unit/L Normal 6-46 [facility] Comment on above: Performed By: #### 2 062374, 98395125, 3787398, 9797330, 6449517, 9522254, 64898119 ####[address] [place] [address] AST [Catalytic activity/Vol] 26 Int._Unit/L Normal 5-43 [facility] Comment on above: Performed By: #### 2 335948, 45808725, 4812339, 5700242, 8731636, 1655308, 15228086 ####[place] [address] Bilirubin [Mass/Vol] 1.0 mg/dL Normal 0.0-1.1 [facility] Comment on above: Performed By: #### 2 810756, 30172312, 5747552, 7773190, 6914779, 6807400, 53576082 ####[address] [address] Bilirubin.direct [Mass/Vol] 0.2 mg/dL Normal 0.1-0.4 [facility] Comment on above: Performed By: #### 2 520846, 98443918, 9044912, 4060540, 0123174, 8000132, 91779656 ####[address] [place] [address] Bilirubin.indirect [Mass or moles/Vol] 0.8 mg/dL Normal 0.1-0.9 [facility] Comment on above: Performed By: #### 2 068664, 38485307, 1058652, 3525784, 1883865, 7618711, 29511353 ####[facility] [address] [place] [address] Globulin (S) [Mass/Vol] 3.5 g/dL Normal 1.4-4.0 [facility] Comment on above: Performed By: #### 2 579796, 81407929, 1346384, 8701169, 0319315, 4064882, 98417268 ####[facility] [address] [place] [address] Protein [Mass/Vol] 7.6 g/dL Normal 6.0-7.8 [facility] Comment on above: Performed By: #### 2 171342, 97442313, 8436581, 0930537, 2221933, 4324985, 51118132 ####[facility] [address] [place] [address] Lipase Levelon 01-02-2023 Lipase [Catalytic activity/Vol] 79 U/L High 13-58 [facility] Comment on above: Performed By: #### 2 001950, 15932134, 0707177, 5341199, 4508984, 6532831, 18770566 ####[facility] [address] [place] [address] PT & PTTon 01-02-2023 aPTT Coag (PPP) [Time] 29.4 second(s) Normal 25.1-36.5 [facility] Comment on above: Result Comment: Para [...] the same coagulation reagent and instrumentation as [facility]. Currently there are no coagulation studies available worldwide for children to 14 days, and no normal ranges. Heparin therapeutic range (represented by Anti-Factor Xa activity of 0.2 - 0.4 U/mL) corresponds to PTT of 56.6 - 109.0 sec. Performed By: #### 2 651049, 21000033, 6360780, 3292046, 4965981, 1922952, 06392428 ####[facility] [address] [place] [address] INR Coag (PPP) [Relative time] 1.1 {INR} Invalid Interpretation Code [facility] Comment on above: Result Comment: INR results are specifically intended to assess patients stabilized on long-term Anticoagulation therapy suggested INR?s ?Less Intensive Anticoagulation? 2.0 ? 3.0 Conventional Range 3.0 ? 4.5 Performed By: #### 2 110061, 09210822, 2446542, 0979980, 4598970, 7501927, 38828866 ####[facility] [address] [place] [address] PT Coag (PPP) [Time] 12.1 second(s) Normal 9.4-12.5 [facility] Comment on above: Result Comment: 15 [...] the same coagulation reagent and instrumentation as [facility]. Currently there are no coagulation studies available worldwide for children to 14 days, and no normal ranges. Performed By: #### 2 099118, 78679157, 3149984, 5796486, 1870873, 9814505, 84611536 ####[facility] [address] [place] [address] UA With Cult Reflexon 2022 Bacteria LM Ql (Urine sed) TRACE Normal Trace [facility] Comment on above: Performed By: #### 1 1039168 ####[facility] [address] [place] [address] Bilirubin Ql (U) Negative Normal Negative [facility] Comment on above: Performed By: #### 1 0864222 ####[facility] [address] [place] [address] Clarity (U) SL CLOUDY Abnormal Clear [facility] Comment on above: Performed By: #### 1 5766671 ####[facility] [address] [facility] [place] [address] Color (U) YELLOW Normal Yellow [facility] Comment on above: Performed By: #### 1 3328577 ####[facility] [address] [place] [address] Epithelial cells.squamous LM.HPF (Urine sed) [#/Area] 9-10 Normal 0-2 [facility] Comment on above: Performed By: #### 1 7482882 ####[facility] [address] [place] [address] Glucose Test strip (U) [Mass/Vol] Negative Normal Negative [facility] Comment on above: Performed By: #### 1 2681744 ####[facility] [address] [place] [address] Hemoglobin Ql (U) Negative Normal Negative [facility] Comment on above: Performed By: #### 1 5406684 ####[facility] [address] [place] [address] Ketones (U) [Mass/Vol] 2+ Abnormal Negative Fi [facility] Comment on above: Performed By: #### 1 [id number] ####[facility] [address] [place] [address] Sabula.plasma/Sabula .RBC (Bld) [Mass ratio] 0-3 Normal 0-3 [facility] Comment on above: Performed By: #### 1 [id number] ####[address] [address] Mucus Ql (Urine sed) 2+ Normal [facility] Comment on above: Performed By: #### 1 [id number] ####[address] [address] Nitrite Ql (U) Negative Normal Negative [facility] Comment on above: Performed By: #### 1 1190697 ####[address] [address] pH (U) 8.5 [pH] Invalid Interpretation Code 5.0-9.0 [facility] Comment on above: Performed By: #### 1 [id number] ####[address] [address] Protein (U) [Mass/Vol] Negative Normal Negative [facility] Comment on above: Performed By: #### 1 [id number] ####[address] [address] Specific gravity (U) [Rel density] 1.015 Invalid Interpretation Code 1.005-1.030 [facility] Comment on above: Performed By: #### 1 [id number] ####[address] [address] Spermatozoa LM Ql (Urine sed) Present Normal [facility] Comment on above: Performed By: #### 1 [id number] ####[address] [address] Type of Urine collection method Clean Catch Normal [facility] Comment on above: Performed By: #### 1 [id number] ####[address] [address] Urobilinogen Qn (U) 0.2 {Hima'U}/dL Normal 0.0-1.0 [facility] Comment on above: Performed By: #### 1 8941467 ####[address] [address] WBC Auto Ql (U) Negative Normal Negative [facility] Comment on above: Performed By: #### 1 [id number] ####[facility] [address] [place] [address] WBC LM.HPF (Urine sed) [#/Area] 0-5 Normal 0-5 [facility] Comment on above: Performed By: #### 1 [id number] ####[facility] [address] [place] [address] URINALYSISOrdered By: Cata Wang on 01-02-2023 Bacteria [...] Interpretation Code Negative [facility] UA Auto SS Sabula.plasma/Sabula .RBC (Bld) [Mass ratio] 0-3 /HPF Normal [...] AM) Invalid Interpretation Code 1.005 - 1.030 [facility] UA Auto SS Spermat[place] LM Ql (Urine sed) Present (01/02/23 10:40 AM) Normal [facility] UA Auto SS UA Spec Desc Clean Catch (01/02/23 10:40 AM) Normal [facility] UA Auto SS Urobilinogen Qn (U) 0.1090315 {Hima'U}/dL Normal 0.0 - 1.0 EU/dL [facility] UA Auto SS WBC Auto Ql (U) Negative (01/02/23 10:40 AM) Normal Negative [facility] UA Auto SS WBC LM.HPF (Urine sed) [#/Area] 0-5 /HPF Normal 0-5/HPF [facility] UA Auto SS US Gallbladderon 01-02-2023 US [...] REPORT Dictated: 01/02/2023 11:52 am Jos Lozano MD. Signed (Electronic Signature): 01/02/2023 11:52 am Signed [...] corresponding gestational age +/- 1 week are: [place] Rump Length: 0.5 cm Composite Ultrasound Age: [...] Regular History 3 Para 2 SAB 1 Normal [facility] US Transvaginalon 01-02-2023 US Transvaginal Exam Date/Time: 01/02/2023 11:37 EST Reason for Exam: pain Report Refer to concurrent ultrasound first trimester dictation. Ordering Provider: Amado Rodriguez FINAL REPORT Dictated: 01/02/2023 11:48 am Jos Lozano MD Signed (Electronic Signature): 01/02/2023 11:48 am Signed by: oJs oLzano MD Transcribed by: JUAN FRANCISCO Technologist: RAMÓN Normal [facility] eGFRon 01-02-2023 GFR/1.73 sq M.predicted among non-blacks MDRD (S/P/Bld) [Vol rate/Area] 133 mL/min/1.73 m2 Normal >=59 [facility] Comment on above: Order Comment: Order added by Discern Expert. Result Comment: Tank Tester saranya kidney disease could be indicated at eGFR's of less than 60 mL/min/1.73m2. Kidney failure is indicated at less than 15 mL/min/1.73m2. Performed By: #### 2 [id number], 87075240, 5218125, 2310124, 2944127, 0219367, 89899528 ####[facility] [address] [place] [address] Coding Summary.on 06-23-2022 Coding Summary. CD:[id number] Ww+PGhlYWQ+CI4LAFQdZ 58slSOowI7xS3OCVUcHJ ywgQVBQTElOSyIgbmFtZ U9crGDfQFAr IC8+CY2xOGYsJvffePJg t2X0aJP9D28xgs1uPGxo vUM2PBGcPjAtaxwfj8zy wTt7BPhbPurzSzFu EANlmZ93MPN9mW57Sy80 lYXonMPqi2oehLe6MpMs XPIxVMX3hIsnVQuif2Bh TAJtP39tnERvy8V6 IGNvbGxhcHNlOyBlbXB0 yL7kNWorvdrlk8clqeuv Riw0uy13nEJzs5M8wBZ9 A8ApzmC5KWNxgTJy FyaalLCBrR0xiliwf9le fnqnDnJgTIHtWRs2PYk0 SOLaxJbtLdGxUB42YCA8 SNSpneXgS8QwLHJe mOrjBoE5i0Z5Ye1PR8EQ OlaiN7LIMOCQGCetcAV+ KB30lu32H3NtRffrLsa9 DLSiYRP4rHC8kP6v XDAjRMeze4P0tYW9N1Ve eyLafs4if3njWCNsHNmc L27giZHng3V8XWPnpEX5 ORUotYenOjMyrO84 Oyc+MOXfdJgvg6CeVlcg k8npq1etxMy8ImvyFTHg ccBzbVrxXQS1h2IaNl2a TPIfxWA3kLR4fU8i IfCqVqT2KQycO795EpJe sVVtWyauI64nG2LjwEK+ GOBtTtx9OXJdeYkhHL5p Y8FwAHZgwewbdGFc yJnjUV0dJBFxkqcdKWWa nG7gYHFxK5h7TvLcGvP8 ZBbsS8DzOHZinqbiRc78 tX5yHrTrAhB3HNxu L1JhgkR6WPNstWCkKCtx EML8K90ji1P1EAHfFPTj JNQ5uUJ0cN5wbTlahhky bGVmdDsgdmVydGlj XYdmHCtwC177ZXWzcCgu PkNvZGluZyBEYXRlOiAg MDUvMDEvMjAyMzwvdGQ+ QXXdGUS0mByfLFOs vOYvZKljVi6lzSjdhLpc XO4mJSHlvrwvIEFhmW1l VKTxwVLgfGtdKI2wLGQy ftrvj849OlSwKCX2 VQVhoQAgN8CfoS2vObDb NASvRDQnO8UtjEZoIPhe R801QQzvArK7PCEzapEj V2TpACUljIdeNrX0 w0X4Ai1Fn5KfwowsY5Xx fYRnQqTlCdhaRXe1D8Cy PjwvdHI+XM67UOYkLF62 MZc9EHB9gHknSZnt GSTlV8FonV7tWzShPIBb ZGRkOyc+PHRhYmxlIHdp ZHRoPScxMDAlJyBzdHls JC6lEv1hOWEpJBLw zZgjbKMwKaDed7bvBBHy GBffYC7cyNxcD5LakMM3 XUBie9c1Yo28Z37gB1Gu dXA+FIEscZU8sTV7 tV2cStNoTnK9ONpbT539 GmNdyADeYmjjf8ugd2qy wPb9ZkX5LSMizsGdcNku JEI9c7MgTx72F44l IHdpZHRoPSIxNSUiIHZh zPlgyk5bdV1wKp3+PGNv tRH2iXX9eK7jVjChTaC7 DBldF361NqZprYBl Tqmhb2ktw3wusBs4PoPz QTTkgeFkdKawJMA3g0Pp Id39T1ZqaChsx1ZhXzp3 iw62bUJmq2G6hWR3 B2SoAEMfnfaooTRzjAhw NG6oODMjgvyoVGHjwN9g HKRoP0l4UpFjQjK6DCtt M9NvxiG7BNVyzTMj DQZwfMHOdU6aykmya1kx ghpqXnAeFIVoONq0GKr3 CMLslSrtAeMoXGQ0KzZ7 ZBF1uDCfhV8fmJmj ladhwL5eGlb+AOT2iGBx gTVKOM9uFafqaDJ+PHRk TTU1zWmbZDesAPObwX3r OLEmW3j5MyYzMoI0 GZbqB4HsegQ7XKEtwOGj UJRkaVONbZ9vlzvkw5ek qihuNzNxGBOmDVb1EIy8 LWFsaWduOiBsZWZ0 LrA7BGQ9eHAvdV9jbNtg izogaI8aLdk+QmlydGgg RDQ9OLa5P5AlDwh1MVOh zZxyCI6xvRSnSTkk Cr0wuCeeqYskYS7kNJTg qnxoq183RhNen5ibLETn qUCpXJdzDNV7R85ev2V9 YIYlWRLaJBM5yIM5 wN6vyEprthgdvHLjqHvo ddDidBnjUAqvGRfpK043 VMLgdDubSaKhFMe8O8Kr Hhm2MXFkeYypRC8s mLYiLKazXg8okAvcsUaw FL7tBQEbyghjd715PoVc b6stGMDfcDQmXVanZKT0 B81zy6C2YGLoTVTe AQH8dZT1oN6gfQalylpp bGVmdDsgdmVydGljYWwt VXdaY330AHLnxVsgUsIq yAd9C9DhRra4FGAq uFgbSI2ncHNhGQgpSa5b rUtreNmhHY3vIWUtkfak p433YiRrq8lhCJEzqENi VWeeIAX0L37jc5D6 LUGuVGRgJHX6eTM5wE4q bGlnbjogbGVmdDsgdmVy rOpfIYjkIUarG474WCUj cDsnPlBhdGllbnQg GOedEHh5O9LtVlnsrFZ+ HD64BPQaTP62sTMbyPPe p3husTe9WwWcTWYvNYH7 wEbvEGhrw8FqTKYb O16dkZSvf2X5BKKigUkn sMOuIsVcsBV0oV6kIDvo frjui6rcyityQhgtb4db ii16vN24G48eMFmx ZHRoPSIzMCUiIHZhbGln zd3lnG5jYv8+PGNvbCB3 aAK4mO8eBWSzTxP7OMpj R799LmFdaUJdCimh z4muy4zhgNc8NiI5INAm miPyfFbaPHE2o0GaCd58 U29zHVrpRUOpKAEkSAZv OVXplPonvc1gjM5m Ii8+TYKblRB8hHJ2gV2g MzLqPtX3GAstQ518MuLv xZTpGnikZ18gK2JmpXZ+ HOOiJur6GOUnvZpz BU6mdIXkGUygFb2iHAI8 RjDmRcPnBWhlU6AsVERp lmwmwwdvqWW9ZPNeAVCc nN79Wf7eeShiJYUq kOPHhG6nrsbni2cuihff GnFqRAKwRDf9STc8JVZw uVrrHdVtKTC8PiI5XOG4 tOXvvG2cwZauutql dW1lZ6DbCANnjvxgMt70 bY5lTqJkEdC6JKqjAol+ P5ZXRKKJJINPYQFKPWFW QU1VTlD2E7DvQka9 MLPwkOrqMA9ytLZwKRky Bz2bsSbvsVgsTW8uAGLe txldUPZlcE5qVGMhnOGx zPxxEZ2fEFZsamhh y061XtOyUOP8JEUleYLr Y0OtvO1dTyMwHLTkAVNb Z7RzwKNzKJzkU994YSpk QhJ1DMYvuhTlD9De RAEzyUqqVwC7c2B7Qz0v Ph8wQT6sOMh3XE45GV00 gQZii4O9eEB9V2SlLWZe ecixbxltbAQ3JBHa LCAceU47uCJpXJzhUc3c f4H9x625CMNgQYJnzZ83 Hi0bmRpdTQIxzDYZoE5h zmpvf5lhkwvfJzDo PLIhZPr6JQg4CAXlpFan PdEgYDI3KcE4AKV9jNYl xC5mhLihhqluuD6xYkc+ KcRvFDOgdiT5Y6Nd Ncr9AOVegItdOX5bxDPd RVpoGw7wbHjleJcyDZ2q NMLpylgxDONxcT6oPHSq hPJgaYldOS6tLLBs ixgjg664VvIoRZM0RDAb tEAtG6AkoQ2uGoDcFEXf COVgS8XtdEQoSSwoX233 DTqcYwL7XEUhtpZc O2UvSRAvaXfiTiL0l8F2 Tt1HNM7qjIX7Q7LrNyy6 CACzcLioFQ3xbMGyYEzg No9biUptvIjoGX0e WGZenkqcSDOarX1gVIIv kOFikVjoSY7oPZQkqfsc m710GeQlQXH6XIVoiWDj H6AvbW0bKpSzNIHw ZXTmB0SfzVLqGYtlN803 WLisZoG9KYAmwsEdL6Nz BSCanEuuBtM1j0Q2Go8P cGMbD8PrU6h1U6Ee PjwvdHI+MC91TZVmYO41 gUFkxNXhz4zkdQi1RfJk SSQqWOW1iTzlNNyki9Nb MIThZ34uyBOxa9K3 IGNvbGxhcHNlOyBlbXB0 jI9oQDfvqkfxz4wmrwox Qeeat9zbqb81gR63R27o IHdpZHRoPSIzMCUi FJAlvJfkui0uxM9pNf4+ VEJgyZZ2kZN3aG7jQfSo GhO1DGjlZ488SuDzmQUf Vfdwq8cgs0vulQu7 IjIwJSIgdmFsaWduPSJ0 i5KgUj88O04yKTueUSOn OOKlMTYvBCYmoVclpm0l kR9aBy1+NT5ik7kt rd44eQ92nVR+PHRkIHN0 nAtmNGgjVUKnvR8wGSet ZiC1XHQfZrEhwJ85jWDa PVtfAr0tpMkjqDly MX4mBZOtjgzag649RhSu m7llCPMmwCVnGWdfUEZ8 E80xm3H0LETxHALiYIS5 pDX1aH6qeLmmjbwv bGVmdDsgdmVydGljYWwt WBryU014IODmtUknWmQh iXUtJ9ylerRCYP0aHbfz dGQ+XAXkDJX8vIwu KTryDDEpdA8mXZUoK9l4 YwCyAyF9BOmnY7BuigE1 JDNsdWAfXVYtfZZFhM0m etpox1dyobmsUgKo DRHuQXz6APd1DMVbgBes MxGyRLF5HcT0HZL9kMUi xN2xpVynmypteC3sIex+ RklOOjwvdGQ+PHRk ZYL3nZsgEMuiNNNhgA6v BZSbX4g8SeRvGaN9LZoi U3PgnaY3TSWwgAPdXBVx eVKMbE4oengtv9dx ixnaPvPqHMKtQQd1MZm5 XAUyoFbeTlLhGFI7TqD3 YXZ4dILzvC4ijJpucemx nI6qMap+TVJOOjwv dGQ+XLVpPOE0wLcoHQtk QXPzsD5uSPQdP3v6IzTm VpJ0TXavJ2DgjjE8EEDs gKNlDZXytQKQoL0t agoyb9nwtndkEtJbHZJw PJg3TRu4OSRsqSknAzAi AGB6PxF3YUI3pIVirR8m nDngbvscxI2eDri+ GXH9TFO6PD73BG91Y0Wi PjwvdGFibGU+PHRhYmxl IHdpZHRoPScxMDAlJyBz pYbkHC9rAj3hWFGd LWNvbGxh (more content not included)... Normal [facility] Auto Diffon 06-21-2022 Basophils/100 WBC (Bld) 0.7 % Normal 0.0-2.0 [facility] Comment on above: Order Comment: Order Added by Discern Expert. Performed By: #### 2 862630, 4981258, 3462113, 2633938, 62755425, 54416582, 4190210 ####[facility] [address] [place] [address] Basophils/Leukocytes Auto (Bld) [Pure # fraction] 0.2 E9/L Normal 0.0-0.2 [facility] Comment on above: Order Comment: Order Added by Discern Expert. Performed By: #### 2 306703, 2781268, 8365695, 1467619, 62008748, 90802420, 6848459 ####[facility] [address] [place] [address] Eosinophils/100 WBC (Bld) 0.9 % Normal 0.0-8.0 [facility] Comment on above: Order Comment: Order Added by Mendy Expert. Performed By: #### 2 941584, 1998677, 8894638, 2180668, 28312631, 24242105, 7418818 ####[address] [place] [address] Eosinophils/Leukocytes Auto (Bld) [Pure # fraction] 0.2 E9/L Normal 0.0-0.5 [facility] Comment on above: Order Comment: Order Added by Mendy Expert. Performed By: #### 2 795675, 6974193, 4500434, 4344107, 94940658, 49748310, 6587667 ####[address] [place] [address] Lymphocytes/100 WBC (Bld) 19.5 % Normal 14.0-50.0 [facility] Comment on above: Order Comment: Order Added by Mendy Expert. Performed By: #### 2 395860, 2167200, 5240945, 4268314, 81821137, 16654889, 4525618 ####[address] [address] Lymphocytes/Leukocytes Auto (Bld) [Pure # fraction] 4.2 E9/L High 1.0-4.0 [facility] Comment on above: Order Comment: Order Added by Mendy Expert. Performed By: #### 2 978463, 3420743, 1508842, 4248258, 34623705, 37474774, 8014740 ####[facility] [address] [place] [address] Monocytes/100 WBC (Bld) 4.9 % Normal 4.0-14.0 [facility] Comment on above: Order Comment: Order Added by Mendy Expert. Performed By: #### 2 670143, 0695334, 4154765, 7812578, 46667289, 24535839, 3338746 ####[facility] [address] [place] [address] Monocytes/Leukocytes Auto (Bld) [Pure # fraction] 1.1 E9/L High 0.2-1.0 [facility] Comment on above: Order Comment: Order Added by Discern Expert. Performed By: #### 2 985341, 2003375, 8331242, 3747415, 42943679, 31035167, 3738391 ####[facility] [address] [place] [address] Neutrophils/100 WBC (Bld) 74.0 % Normal 36.0-75.0 [facility] Comment on above: Order Comment: Order Added by Discern Expert. Performed By: #### 2 365444, 5746516, 7456979, 4372314, 70992240, 33239107, 6946963 ####[address] [place] [address] Neutrophils/Leukocytes Auto (Bld) [Pure # fraction] 15.9 E9/L High 2.0-7.5 [facility] Comment on above: Order Comment: Order Added by Discern Expert. Performed By: #### 2 245987, 3583045, 2862318, 1212478, 64417525, 11228071, 6572653 ####[address] [place] [address] B hCG Qualon 06-21-2022 Beta hCG Ql Negative Normal [facility] Comment on above: Performed By: #### 2 373716, 5728664, 2326024, 2508536, 37175486, 83394523, 2073485 ####[facility] [address] [place] [address] BMPon 06-21-2022 Creatinine [Mass/Vol] 0.7 mg/dL Normal 0.5-1.3 [facility] Comment on above: Performed By: #### 2 498571, 8266475, 2184296, 4644719, 77691618, 17997300, 7231085 ####[facility] [address] [place] [address] Urea nitrogen [Mass/Vol] 12 mg/dL Normal 5-21 [facility] Comment on above: Performed By: #### 2 183860, 1016121, 9738364, 9532739, 32827455, 33465153, 0973039 ####[facility] [address] [address] Urea nitrogen/Creatinine [Mass ratio] 17 No Units Normal 10-20 [facility] Comment on above: Performed By: #### 2 294333, 2845238, 1161816, 6738452, 76265337, 53652084, 6751492 ####[facility] [address] [place] [address] Anion gap [Moles/Vol] 12 mmol/L Normal 6-16 [facility] Comment on above: Performed By: #### 2 525023, 4114766, 8439761, 4708430, 15181304, 72542030, 6448434 ####[facility] [address] [place] [address] Calcium [Mass/Vol] 8.8 mg/dL Low 8.9-11.1 [facility] Comment on above: Performed By: #### 2 197885, 9790227, 4265734, 2724884, 24177860, 05345667, 2613774 ####[facility] [address] [place] [address] Chloride [Moles/Vol] 105 mmol/L Normal 101-111 [facility] Comment on above: Performed By: #### 2 077096, 5713300, 0011475, 6390585, 33958801, 66632754, 3276264 ####[facility] [address] [place] [address] CO2 [Moles/Vol] 23 mmol/L Normal 21-31 [facility] Comment on above: Performed By: #### 2 904564, 8980628, 4298803, 0972625, 79710585, 13608903, 7423763 ####[facility] [address] [place] [address] Glucose [Mass/Vol] 104 mg/dL Normal 55-199 [facility] Comment on above: Result Comment: If t his glucose result represents a fasting glucose, interpretation should refer to the following reference range: 55-99 mg/dL Performed By: #### 2 286428, 7840368, 3981687, 8382062, 46682738, 52040489, 2451870 ####[facility] [address] [place] [address] Potassium [Moles/Vol] 3.4 mmol/L Low 3.5-5.3 [facility] Comment on above: Performed By: #### 2 993150, 8601522, 8679988, 1049489, 53411351, 66174244, 5825473 ####[facility] [address] [place] [address] Sodium [Moles/Vol] 137 mmol/L Normal 135-145 [facility] Comment on above: Performed By: #### 2 741430, 6013147, 9707845, 1821217, 95293470, 30038237, 1144982 ####[facility] [address] [place] [address] CBC w/ Auto Diffon 3 Erythrocyte distribution width (RBC) [Ratio] 12.3 % Normal 10.9-14.2 [facility] Comment on above: Performed By: #### 2 071866, 0791900, 2968619, 9992557, 29573045, 08457958, 9182903 ####[facility] [address] [place] [address] Hematocrit (Bld) [Volume fraction] 41.0 % Normal 34.0-46.0 [facility] Comment on above: Performed By: #### 2 747091, 0038850, 4981207, 0520511, 39245951, 23811549, 9206330 ####[facility] [address] [place] [address] Hemoglobin (Bld) [Mass/Vol] 13.4 g/dL Normal 12.0-16.0 [facility] Comment on above: Performed By: #### 2 944553, 9571203, 8757590, 0677815, 13675181, 59667352, 5412943 ####[address] [address] MCH (RBC) [Entitic mass] 28.2 pg Normal 27.0-34.0 [facility] Comment on above: Performed By: #### 2 506790, 7617048, 7352231, 9136260, 85764537, 18053076, 7664088 ####[address] [address] MCHC (RBC) [Mass/Vol] 32.7 g/dL Normal 31.4-36.0 [facility] Comment on above: Performed By: #### 2 432331, 6647599, 7843844, 6606653, 54675442, 28441922, 3503747 ####[address] [address] MCV (RBC) [Entitic vol] 86.3 fL Normal 80.0-100.0 [facility] Comment on above: Performed By: #### 2 251985, 6287446, 6375705, 6106597, 89474648, 47916739, 0289041 ####[address] [address] Platelet mean volume (Bld) [Entitic vol] 7.2 fL Normal 6.4-10.8 [facility] Comment on above: Performed By: #### 2 131147, 8113058, 5114356, 2782836, 05789356, 49020505, 8983312 ####[address] [address] Platelets (Bld) [#/Vol] 414.0 E9/L Normal 150.0-500.0 [facility] Comment on above: Performed By: #### 2 866575, 9138093, 3263527, 9200437, 96523342, 28692548, 2775042 ####[address] [place] [address] RBC (Bld) [#/Vol] 4.8 E12/L Normal 4.3-5.9 [facility] Comment on above: Performed By: #### 2 705152, 5619459, 8690993, 9563295, 53050054, 85956010, 3598034 ####[facility] [address] [place] [address] WBC corrected for nucl RBC Auto (Bld) [#/Vol] 21.6 E9/L High 4.0-11.0 [facility] Comment on above: Result Comment: Slid e reviewed by AD. Performed By: #### 2 462307, 0618483, 0864923, 2710160, 04179607, 31701851, 0092956 ####[address] [place] [address] CT Abdomen/Pelvis w/ Contras ton 06-21-2022 CT [...] Pascal FINAL REPORT Dictated: 06/21/2022 8:59 am Brtet Colon MD Signed (Electronic Signature): 06/21/2022 8:59 am Signed by: Brett Colon MD Transcribed by: JUAN FRANCISCO Technologist: JUAN FRANCISCOR Technical Comments GFR (mL/min/1/73m2) age Contrast: Isovue 300 Contrast amount in ml's: 100 Normal [facility] Consent for Treatmenton 05-25 Consent for Treatment [id number] 30 [id number] #1.00CD:127 Normal [facility] Discharge Instructionson Discharge Instructions [id number] 304 [id number] 0#1.00CD:127 Normal [facility] ED Clinical Summaryon 2022 ED Clinical Summary [place] [id number] ED Clinical Summary [facility] Age: 27 Years : 1995 Sex: Female Language: Albanian PCP: Keith GARCIA DO Marital Status: Single MRN: [id number] Visit Id: Visit Reason: Throat pain - [...] 06/21/2022 05:06:52 06/21/2022 05:06:52 06/21/2022 05:06:52 ADDRESS: [address] [place] [id number] PHYS DOC NOTES: MEDICAL INFORMATION: Prescriptions Given: New Medications [id number], [address] [place], [place] [id number], [phone] naproxen (naproxen 500 mg oral enteric coated tablet) 1 Tablets By Mouth 2 times a day as needed Pain. Refills: 0. ondansetron (Zofran ODT 4 mg Tab-Dis) 1 Tablets By Mouth every 8 hours as needed Nausea/Vomiting. Refills: 0. PATIENT EDUCATION INFORMATION: Instructions: Abdominal Pain, Adult Follow up: With: Address: When: Keith GARCIA [address] [facility] [address] [place], [place] [id number] Business (1) In 3 days 06/24/2022 DIAGNOSIS: Abdominal pain, acute Normal [facility] ED Note-Physicianon 06-22-19 ED Note-Physician Basic [...] and Complexity of Problems Differential Diagnosis: [] [facility] Data External documents reviewed: N/A My EKG [...] Pain, # 14 tab(s), Refills(s) 0, Pharmacy: [facility]/pharmacy #[id number], 160, cm, 06/20/22 23:30:00 EDT, Height/Length [...] Nausea/Vomiting, # 16 tab(s), Refills(s) 0, Pharmacy: [facility]/pharmacy #[id number], 160, cm, 06/20/22 23:30:00 EDT, Height/Length [...] Medications Administered (more content not included)... Normal [facility] Comment on above: Result Comment: Elec [...] these instructions at home: Medicines ? Take xolu-kuh-lnsrcup and prescription medicines only as told by [...] your condition for any changes. ? Take evci-rdh-guaobyw and prescription medicines only as told by [...] provider. Document Revised: 03/30/2020 Document Reviewed: 06/20/2019 [employer] Patient Education ? 2022 [employer] Normal [facility] ED Patient Summaryon 023 ED Patient Summary [address] [address] Patient Discharge Instructions Person Information Name: LEENA CORDERO Age: 27 Years Arrival Date: 06/20/2022 23:19:15 Discharge Diagnosis: Abdominal pain, acute Primary Care Physician: Keith GARCIA DO Provider Information Primary Provider: Ritesh Pascal DO Advanced Bid Writer:None The exam and treatment you received in the Emergency Department were for an urgent problem and are not intended as complete care. It is important that you follow up with a doctor, nurse practitioner, or physician?s child nutrition assistant for ongoing care. If your symptoms [...] Follow-up Instructions: With: Address: When: Keith GARCIA [address] [place] [address] [facility] (1) In 3 days 06/24/2022 In the event that this physician does not participate in your insurance network, please consult with your insurance company to find a nearby participating provider. Patient Education Materials: Abdominal Pain, Adult A MESSAGE TO ALL PATIENTS REGARDING OPIOIDS PRESCRIPTION OPIOIDS: WHAT YOU NEED TO KNOW Prescription opioids can be used to help relieve dnctngty-lg-kxdlwq pain and are often prescribed following a [...] be struggling with addiction, tell your health home child care provider and ask for guidance or call [employer]?S National Helpline at 0-013-977-HELP. v Source: [facility] (more content not included)... Normal [facility] Hep Func Panelon 06-21-2022 Bilirubin.indirect [Mass or moles/Vol] UTC Abnormal 0.1-0.9 [facility] Comment on above: Result Comment: Resu lt verified by [employer]. Performed result UTC (Unable to Calculate) was sent as an Alpha code due the inability to calculate a valid numeric value. Performed By: #### 2 125295, 3257034, 5020251, 1424523, [id number], [id number], [id number] ####[address] [place] [address] Albumin [Mass/Vol] 4.1 g/dL Normal 3.3-5.0 [facility] Comment on above: Performed By: #### 2 902149, 8656426, 5001311, 3209138, 14597217, 28380166, 9572371 ####[address] [address] Albumin/Globulin (S) [Mass conc ratio] 1.1 Normal 1.1-2.2 [facility] Comment on above: Performed By: #### 2 797834, 6478210, 8971146, 9802904, 74165608, 74912146, 2874019 ####[address] [address] ALP [Catalytic activity/Vol] 86 Int._Unit/L Normal 21-98 [facility] Comment on above: Performed By: #### 2 518485, 8204833, 9986066, 3278526, 94570545, 35318708, 6933986 ####[address] [address] ALT No additional P-5'-P [Catalytic activity/Vol] 16 Int._Unit/L Normal 6-46 [facility] Comment on above: Performed By: #### 2 594506, 2947153, 3692119, 9029824, 98989552, 74208785, 3594544 ####[address] [place] [address] AST [Catalytic activity/Vol] 22 Int._Unit/L Normal 5-43 [facility] Comment on above: Performed By: #### 2 365130, 2443217, 3933411, 5902187, 00645037, 84765441, 0437861 ####[address] [address] Bilirubin [Mass/Vol] 0.5 mg/dL Normal 0.0-1.1 [facility] Comment on above: Performed By: #### 2 199274, 9830328, 5753012, 7596626, 15538503, 01218203, 3262125 ####[facility] [address] [place] [address] Globulin (S) [Mass/Vol] 3.6 g/dL Normal 1.4-4.0 [facility] Comment on above: Performed By: #### 2 540394, 9092060, 4925693, 8392794, 96119296, 64215298, 7125892 ####[facility] [address] [place] [address] Protein [Mass/Vol] 7.7 g/dL Normal 6.0-7.8 [facility] Comment on above: Performed By: #### 2 883150, 2076873, 8983274, 4551695, 94808539, 32187554, 7241933 ####[facility] [address] [place] [address] Bilirubin.direct [Mass/Vol] mg/dL Normal 0.1-0.4 [facility] Comment on above: Performed By: #### 2 075078, 3127692, 0032792, 4007786, 45277385, 70715644, 5452338 ####[address] [place] [address] Lipase Levelon 06-21-2022 Lipase [Catalytic activity/Vol] 32 U/L Normal 13-58 [facility] Comment on above: Performed By: #### 2 248220, 7306367, 4048778, 4256413, 19074645, 33274562, 5766179 ####[facility] [address] [place] [address] RAD - Preliminary Cat Scan R eporton 06-21-2022 RAD - Preliminary Cat Scan Report [id number] 9#1.00CD:127 Normal [facility] RAD - Preliminary Cat Scan Report [id number] 5#1.00CD:127 Normal [facility] UA With Cult Reflexon 2022 Bilirubin Ql (U) Negative Normal Negative [facility] Comment on above: Performed By: #### 1 [id number] ####[facility] [address] [place], [place] [id number] Clarity (U) CLEAR Normal Clear [facility] Comment on above: Performed By: #### 1 [id number] ####[facility] [address] [place] [address] Color (U) STRAW Invalid Interpretation Code [facility] Comment on above: Performed By: #### 1 [id number] ####[address] [address] Epithelial cells.squamous LM.HPF (Urine sed) [#/Area] 0-2 Normal 0-2 [facility] Comment on above: Performed By: #### 1 [id number] ####[facility] [address] [place] [address] Glucose Test strip (U) [Mass/Vol] Negative Normal Negative [facility] Comment on above: Performed By: #### 1 [id number] ####[facility] [address] [place] [address] Hemoglobin Ql (U) TRACE Abnormal Negative [facility] Comment on above: Performed By: #### 1 [id number] ####[facility] [address] [place] [address] Ketones (U) [Mass/Vol] TRACE Invalid Interpretation Code Negative [facility] Comment on above: Performed By: #### 1 [id number] ####[facility] [address] [place] [address] Sabula.plasma/Sabula .RBC (Bld) [Mass ratio] 0-3 Normal 0-3 [facility] Comment on above: Performed By: #### 1 [id number] ####[facility] [address] [place] [address] [place] [address] Nitrite Ql (U) Negative Normal Negative [facility] Comment on above: Performed By: #### 1 [id number] ####[address] [address] pH (U) 8.0 [pH] Invalid Interpretation Code 5.0-9.0 [facility] Comment on above: Performed By: #### 1 [id number] ####[address] [address] Protein (U) [Mass/Vol] Negative Normal Negative [facility] Comment on above: Performed By: #### 1 [id number] ####[address] [address] Specific gravity (U) [Rel density] 1.010 Invalid Interpretation Code 1.005-1.030 [facility] Comment on above: Performed By: #### 1 [id number] ####[place] [address] Type of Urine collection method Clean Catch Normal [facility] Comment on above: Performed By: #### 1 [id number] ####[address] [address] Urobilinogen Qn (U) 0.2 {Hima'U}/dL Normal 0.0-1.0 [facility] Comment on above: Performed By: #### 1 [id number] ####[address] [address] WBC Auto Ql (U) Negative Normal Negative [facility] Comment on above: Performed By: #### 1 [id number] ####[address] [address] WBC LM.HPF (Urine sed) [#/Area] 0-5 Normal 0-5 [facility] Comment on above: Performed By: #### 1 [id number] ####[address] [address] URINALYSISOrdered By: Tom Jon on 06-21-2022 Bilirubin [...] Interpretation Code Negative [facility] UA Auto SS Sabula.plasma/Sabula .RBC (Bld) [Mass ratio] 0-3 /HPF Normal [...] [facility] UA Auto SS Urobilinogen Qn (U) 0.7903966 {Hima'U}/dL Normal 0.0 - 1.0 EU/dL [facility] [...] Colon MD Transcribed by: JUAN FRANCISCO Technologist: ASIM Technical Comments Transabdominal Ultrasound Performed Uterus Position Anteverted Normal [facility] eGFRon 06-21-2022 GFR/1.73 sq M.predicted among non-blacks MDRD (S/P/Bld) [Vol rate/Area] 123 mL/min/1.73 m2 Normal >=59 [facility] Comment on above: Order Comment: Order added by Discern Expert. Result Comment: Tank Tester saranya kidney disease could be indicated at eGFR's of less than 60 mL/min/1.73m2. Kidney failure is indicated at less than 15 mL/min/1.73m2. Performed By: #### 2 [id number], [id number], [id number], [id number] ####[facility] [address] [place] [id number] CHEMISTRYOrdered By: SYSTEM SYSTEM on 06-20-2022 Albumin [...] - 7.5 E9/L [facility] HemeAutoSS HEMATOLOGYOrdered By: Alliso n Danay on 06-20-2022 Erythrocyte distribution width (RBC) [Ratio] 12.3 % Normal 10.9 - 14.2 % [facility] HemeAutoSS Hematocrit (Bld) [Volume fraction] 41.0 % Normal 34.0 - 46.0 % [facility] Hemoglobin (Bld) [Mass/Vol] 13.4 g/dL Normal 12.0 - 16.0 gm/dL [facility] HemeAutoSS MCH (RBC) [Entitic mass] 28.2 pg Normal 27.0 - 34.0 pg [facility] HemeAutoSS MCHC (RBC) [Mass/Vol] 32.7 g/dL Normal 31.4 - 36.0 gm/dL [facility] HemeAutoSS MCV (RBC) [Entitic vol] 86.3 fL Normal 80.0 - 100.0 fL [facility]eAutoSS Platelet mean volume (Bld) [Entitic vol] 7.2 fL Normal 6.4 - 10.8 fL [facility] HemeAutoSS Platelets (Bld) [#/Vol] 414.0 E9/L Normal 150.0 - 500.0 E9/L [facility] HemeAutoSS RBC (Bld) [#/Vol] 4.8 E12/L Normal 4.3 - 5.9 E12/L [facility] HemeAutoSS WBC corrected for nucl RBC Auto (Bld) [#/Vol] 21.6 E9/L High 4.0 - 11.0 E9/L [facility]eAuto[facility] Comment on above: Result Comment: Slid e reviewed by AD. SEROLOGYOrdered By: Allegra Jon on 06-20-2022 Beta hCG Ql Negative (06/20/22 11:40 PM) Normal [facility] Man Sero CANNABINOID (THC) CONFIRMATI ON, URINEon 11-19-2021 Cannabinoid Positive Abnormal [facility] Comment on above: Performed By: #### T HCCONF #### [facility] [address] [place] [address] Dr. Nannette Shafer THC GC/MS Conf 629 ng/mL Normal Cutoff=10 Th e [facility] Comment on above: Performed By: #### T HCCONF #### [facility] [address] [place], [place] [address] Dr. Nannette Baker CBC AUTO DIFFon 11-13-2021 BASO # 0.1 103/ul Normal 0.0-0.1 [facility] Comment on above: Performed By: #### C BC #### [facility] [address] [address] [address] Nannette Baker Basophils/100 WBC (Bld) 0.5 % Normal 0.2-2.0 [facility] Comment on above: Performed By: #### C BC #### [facility] [address] [address] [address] Nannette Baker EO # 0.2 103/ul Normal 0.0-0.7 [facility] Comment on above: Performed By: #### C BC #### [facility] [address] [place] [address] Dr. Nannette Baker Eosinophils/100 WBC (Bld) 1.2 % Normal 0.9-7.0 [facility] Comment on above: Performed By: #### C BC #### [facility] [address] [address] [address] Nannette Baker Erythrocyte distribution width (RBC) [Ratio] 12.2 % Normal 11.0-15.0 [facility] Comment on above: Performed By: #### C BC #### [facility] [address] [place] [address] Dr. Nannette Baker Hematocrit (Bld) [Volume fraction] 33.4 % Critically low 36.0-48.0 [facility] Comment on above: Performed By: #### C BC #### [facility] [address] [place] [address] Dr. Nannette Baker Hemoglobin (Bld) [Mass/Vol] 11.5 g/dL Critically low 12.0-16.0 [facility] Comment on above: Performed By: #### C BC #### [facility] [address] [place] [address] Dr. Nannette Baker IG # 0.06 10e3/ul Critically high 0.00-0.03 [facility] Comment on above: Performed By: #### C BC #### [facility] [address] [place] [address] Dr. Nannette Baker IG % 0.5 % Normal 0.0-0.5 [facility] Comment on above: Performed By: #### C BC #### [facility] [address] [place] [address] Dr. Nannette Baker LYMPH # 2.3 103/ul Normal 1.2-3.8 [facility] Comment on above: Performed By: #### C BC #### [facility] [address] [place] [address] Dr. Nannette Baker Lymphocytes/100 WBC (Bld) 17.5 % Critically low 20.5-60.0 [facility] Comment on above: Performed By: #### C BC #### [facility] [address] [place] [address] Dr. Nannette Baker MANUAL DIFF REQ NO Normal [facility] Comment on above: Performed By: #### C BC #### [facility] [address] [place] [address] Dr. Nannette Baker MCH (RBC) [Entitic mass] 31.2 pg Normal 26.7-34.0 [facility] Comment on above: Performed By: #### C BC #### [facility] [address] [place] [address] Dr. Nannette Baker MCHC (RBC) [Mass/Vol] 34.4 g/dL Normal 29.9-35.2 [facility] Comment on above: Performed By: #### C BC #### [facility] [address] [place] [address] Dr. Nannette Baker MCV (RBC) [Entitic vol] 90.5 fL Normal 81.0-99.0 [facility] Comment on above: Performed By: #### C BC #### [facility] [address] [place] [address] Dr. Nannette Baker MONO # 0.8 103/ul Normal 0.3-0.8 [facility] Comment on above: Performed By: #### C BC #### [facility] [address] [place] [address] Dr. Nannette Baker Monocytes/100 WBC (Bld) 6.0 % Normal 1.7-12.0 [facility] Comment on above: Performed By: #### C BC #### [facility] [address] [place] [address] Dr. Nannette Baker NEUT # 9.7 103/ul Critically high 1.4-6.5 [facility] Comment on above: Performed By: #### C BC #### [facility] [address] [place] [address] Dr. Nannette Baker Neutrophils/100 WBC (Bld) 74.3 % Normal 43.0-75.0 [facility] Comment on above: Performed By: #### C BC #### [facility] [address] [place] [address] Dr. Nannette Baker Platelet mean volume (Bld) [Entitic vol] 9.4 fL Critically low 9.5-13.5 [facility] Comment on above: Performed By: #### C BC #### [facility] [address] [place] [address] Dr. Nannette Baker PLT 247 103/ul Normal 150-450 [facility] Comment on above: Performed By: #### C BC #### [facility] [address] [place] [address] Dr. Nannette Baker RBC 3.69 106/ul Critically low 4.20-5.40 [facility] Comment on above: Performed By: #### C BC #### [facility] [address] [place] [address] Dr. Nannette Baker WBC 13.0 103/ul Critically high 4.0-11.0 [facility] Comment on above: Performed By: #### C BC #### [facility] [address] [place] [address] Dr. Nannette Baker CBC AUTO DIFFon 11-12-2021 BASO # 0.0 103/ul Normal 0.0-0.1 [facility] Comment on above: Performed By: #### T HCCONF #### [facility] [address] [place] [address] Dr. Nannette Baker Basophils/100 WBC (Bld) 0.3 % Normal 0.2-2.0 [facility] Comment on above: Performed By: #### T HCCONF #### [facility] [address] [place] [address] Dr. Nannette Baker EO # 0.1 103/ul Normal 0.0-0.7 [facility] Comment on above: Performed By: #### T HCCONF #### [facility] [address] [place] [address] Dr. Nannette Baker Eosinophils/100 WBC (Bld) 1.2 % Normal 0.9-7.0 [facility] Comment on above: Performed By: #### T HCCONF #### [facility] [address] [place] [address] Dr. Nannette Baker Erythrocyte distribution width (RBC) [Ratio] 12.0 % Normal 11.0-15.0 [facility] Comment on above: Performed By: #### T HCCONF #### [facility] [address] [place] [address] Dr. Nannette Baker Hematocrit (Bld) [Volume fraction] 33.0 % Critically low 36.0-48.0 [facility] Comment on above: Performed By: #### T HCCONF #### [facility] [address] [place] [address] Dr. Nannette Baker Hemoglobin (Bld) [Mass/Vol] 11.1 g/dL Critically low 12.0-16.0 [facility] Comment on above: Performed By: #### T HCCONF #### [facility] [address] [place] [address] Dr. Nannette Baker IG # 0.05 10e3/ul Critically high 0.00-0.03 [facility] Comment on above: Performed By: #### T HCCONF #### [facility] [address] [place] [address] Dr. Nannette Baker IG % 0.5 % Normal 0.0-0.5 [facility] Comment on above: Performed By: #### T HCCONF #### [facility] [address] [place] [address] Dr. Nannette Baker LYMPH # 1.8 103/ul Normal 1.2-3.8 [facility] Comment on above: Performed By: #### T HCCONF #### [facility] [address] [place] [address] Dr. Nannette Baker Lymphocytes/100 WBC (Bld) 16.4 % Critically low 20.5-60.0 [facility] Comment on above: Performed By: #### T HCCONF #### [facility] [address] [place] [address] Dr. Nannette Baker MANUAL DIFF REQ NO Normal [facility] Comment on above: Performed By: #### T HCCONF #### [facility] [address] [place] [address] Dr. Nannette Baker MCH (RBC) [Entitic mass] 30.7 pg Normal 26.7-34.0 [facility] Comment on above: Performed By: #### T HCCONF #### [facility] [address] [place] [address] Dr. Nannette Baker MCHC (RBC) [Mass/Vol] 33.6 g/dL Normal 29.9-35.2 [facility] Comment on above: Performed By: #### T HCCONF #### [facility] [address] [place] [address] Dr. Nannette Baker MCV (RBC) [Entitic vol] 91.4 fL Normal 81.0-99.0 [facility] Comment on above: Performed By: #### T HCCONF #### [facility] [address] [place] [address] Dr. Nannette Baker MONO # 0.6 103/ul Normal 0.3-0.8 [facility] Comment on above: Performed By: #### T HCCONF #### [facility] [address] [place] [address] Dr. Nannette Baker Monocytes/100 WBC (Bld) 5.7 % Normal 1.7-12.0 [facility] Comment on above: Performed By: #### T HCCONF #### [facility] [address] [place] [address] Dr. Nannette Baker NEUT # 8.4 103/ul Critically high 1.4-6.5 [facility] Comment on above: Performed By: #### T HCCONF #### [facility] [address] [place] [address] Dr. Nannette Baker Neutrophils/100 WBC (Bld) 75.9 % Critically high 43.0-75.0 [facility] Comment on above: Performed By: #### T HCCONF #### [facility] [address] [place] [address] Dr. Nannette Baker Platelet mean volume (Bld) [Entitic vol] 9.4 fL Critically low 9.5-13.5 [facility] Comment on above: Performed By: #### T HCCONF #### [facility] [address] [place] [address] Dr. Nannette Baker PLT 230 103/ul Normal 150-450 [facility] Comment on above: Performed By: #### T HCCONF #### [facility] [address] [place] [address] Dr. Nannette Baker RBC 3.61 106/ul Critically low 4.20-5.40 [facility] Comment on above: Performed By: #### T HCCONF #### [facility] [address] [place] [address] Dr. Nannette Baker WBC 11.1 103/ul Critically high 4.0-11.0 [facility] Comment on above: Performed By: #### T HCCONF #### [facility] [address] [place] [address] Dr. Nannette Baker Covid-19 PCR ([facility])on 10-25 SARS-CoV-2 (COVID-19) RNA CHARLENE+probe Ql (Unsp spec) Not detected Normal NOT DETECTED [facility] Comment on above: Result Comment: [...] for this test is supported by the [place] of Health and Human Service's declaration that [...] used). Performed By: #### C VDTBH #### [facility] [address] [place] [address] Dr. Nannette Baker DRUG SCREEN RAPID (URINE)on 11-12-2021 AMP Negative Normal NEGATIVE [facility] Comment on above: Performed By: #### D RUGRPD #### [facility] [address] [place] [address] Dr. Nannette Baker BAR Negative Normal NEGATIVE [facility] Comment on above: Performed By: #### D RUGRPD #### [facility] [address] [place] [address] Dr. Nannette Baker BUP Negative Normal NEGATIVE [facility] Comment on above: Performed By: #### D RUGRPD #### [facility] [address] [place] [address] Dr. Nannette Baker BZO Negative Normal NEGATIVE [facility] Comment on above: Performed By: #### D RUGRPD #### [facility] [address] [place] [address] Dr. Nannette Baker SORAIDA Negative Normal NEGATIVE [facility] Comment on above: Performed By: #### D RUGRPD #### [facility] [address] [place] [address] Dr. Nannette Baker CUT-OFFS SEE BELOW Normal [facility] Comment on above: Result Comment: AMP [...] ng/mL Performed By: #### D RUGRPD #### [facility] [address] [place] [address] Dr. Nannette Baker DRUG CUT HEADER DRUG CLASS TEST SYSTEM CUT-OFF CONCENTRATIONS ARE FOLLOWS: Normal [facility] Comment on above: Performed By: #### D RUGRPD #### [facility] [address] [place] [address] Dr. Nannette Baker mAMP Negative Normal NEGATIVE [facility] Comment on above: Performed By: #### D RUGRPD #### [facility] [address] [place] [address] Dr. Nannette Baker MTD Negative Normal NEGATIVE [facility] Comment on above: Performed By: #### D RUGRPD #### [facility] [address] [place] [address] Dr. Nannette Baker OPI Negative Normal NEGATIVE [facility] Comment on above: Performed By: #### D RUGRPD #### [facility] [address] [place] [address] Dr. Nannette Baker OXY Negative Normal NEGATIVE [facility] Comment on above: Performed By: #### D RUGRPD #### [facility] [address] [place] [address] Dr. Nannette Baker PCP Negative Normal NEGATIVE [facility] Comment on above: Performed By: #### D RUGRPD #### [facility] [address] [place] [address] Dr. Nannette Baker PPX Negative Normal NEGATIVE [facility] Comment on above: Performed By: #### D RUGRPD #### [facility] [address] [place] [address] Dr. Nannette Baker TCA Negative Normal NEGATIVE [facility] Comment on above: Performed By: #### D RUGRPD #### [facility] [address] [place] [address] Dr. Nannette Baker THC Positive Abnormal NEGATIVE [facility] Comment on above: Performed By: #### D RUGRPD #### [facility] [address] [place] [address] Dr. Nannette Baker TYPE AND SCREENon 11-12-2021 TYPE AND SCREEN Negative Normal [facility] Comment on above: Performed By: #### T NS #### [facility] [address] [place] [address] Dr. Nannette Baker GROUP B STREP CULTUREon [...] F Tetracycline >=16 R F Normal [facility] Comment on above: Performed By: #### C VDTBH #### [facility] [address] [place] [address] Dr. Nannette Baker US PREG GROWTHon 10-22-2021 [...] SAMIR SHANNON Date: 2021-10-22 16:21 Normal [facility] US PREG GROWTHon 09-25-2021 US [...] SAMIR SHANNON Date: 2021-09-25 16:34 Normal [facility] CBC AUTO DIFFon 08-27-2021 BASO # 0.0 103/ul Normal 0.0-0.1 [facility] Comment on above: Performed By: #### C VDTBH #### [facility] [address] [place] [address] Dr. Nannette Baker Basophils/100 WBC (Bld) 0.3 % Normal 0.2-2.0 [facility] Comment on above: Performed By: #### C VDTBH #### [facility] [address] [place] [address] Dr. Nannette Baker EO # 0.1 103/ul Normal 0.0-0.7 [facility] Comment on above: Performed By: #### C VDTBH #### [facility] [address] [place] [address] Dr. Nannette Baker Eosinophils/100 WBC (Bld) 0.8 % Critically low 0.9-7.0 [facility] Comment on above: Performed By: #### C VDTBH #### [facility] [address] [place] [address] Dr. Nannette Baker Erythrocyte distribution width (RBC) [Ratio] 11.9 % Normal 11.0-15.0 [facility] Comment on above: Performed By: #### C VDTBH #### [facility] [address] [place] [address] Dr. Nannette Baker Hematocrit (Bld) [Volume fraction] 33.3 % Critically low 36.0-48.0 [facility] Comment on above: Performed By: #### C VDTBH #### [facility] [address] [place] [address] Dr. Nannette Baker Hemoglobin (Bld) [Mass/Vol] 11.3 g/dL Critically low 12.0-16.0 [facility] Comment on above: Performed By: #### C VDTBH #### [facility] [address] [place] [address] Dr. Nannette Baker IG # 0.07 10e3/ul Critically high 0.00-0.03 [facility] Comment on above: Performed By: #### C VDTBH #### [facility] [address] [place] [address] Dr. Nannette Baker IG % 0.6 % Critically high 0.0-0.5 [facility] Comment on above: Performed By: #### C VDTBH #### [facility] [address] [place] [address] Dr. Nannette Baker LYMPH # 1.3 103/ul Normal 1.2-3.8 [facility] Comment on above: Performed By: #### C VDTBH #### [facility] [address] [place] [address] Dr. Nannette Baker Lymphocytes/100 WBC (Bld) 10.8 % Critically low 20.5-60.0 [facility] Comment on above: Performed By: #### C VDTBH #### [facility] [address] [place] [address] Dr. Nannette Baker MANUAL DIFF REQ NO Normal [facility] Comment on above: Performed By: #### C VDTBH #### [facility] [address] [place] [address] Dr. Nannette Baker MCH (RBC) [Entitic mass] 32.1 pg Normal 26.7-34.0 [facility] Comment on above: Performed By: #### C VDTBH #### [facility] [address] [place] [address] Dr. Nannette Baker MCHC (RBC) [Mass/Vol] 33.9 g/dL Normal 29.9-35.2 [facility] Comment on above: Performed By: #### C VDTBH #### [facility] [address] [place] [address] Dr. Nannette Baker MCV (RBC) [Entitic vol] 94.6 fL Normal 81.0-99.0 [facility] Comment on above: Performed By: #### C VDTBH #### [facility] [address] [place] [address] Dr. Nannette Baker MONO # 0.5 103/ul Normal 0.3-0.8 [facility] Comment on above: Performed By: #### C VDTBH #### [facility] [address] [place] [address] Dr. Nannette Baker Monocytes/100 WBC (Bld) 4.5 % Normal 1.7-12.0 [facility] Comment on above: Performed By: #### C VDTBH #### [facility] [address] [place] [address] Dr. Nannette Baker NEUT # 10.1 103/ul Critically high 1.4-6.5 [facility] Comment on above: Performed By: #### C VDTBH #### [facility] [address] [place] [address] Dr. Nannette Baker Neutrophils/100 WBC (Bld) 83.0 % Critically high 43.0-75.0 [facility] Comment on above: Performed By: #### C VDTBH #### [facility] [address] [address] [address] Nannette Baker Platelet mean volume (Bld) [Entitic vol] 9.2 fL Critically low 9.5-13.5 [facility] Comment on above: Performed By: #### C VDTBH #### [facility] [address] [place] [address] Dr. Nannette Baker PLT 233 103/ul Normal 150-450 [facility] Comment on above: Performed By: #### C VDTBH #### [facility] [address] [address] [address] Nannette Baker RBC 3.52 106/ul Critically low 4.20-5.40 [facility] Comment on above: Performed By: #### C VDTBH #### [facility] [facility] [address] [place] [address] Dr. Nannette Baker WBC 12.1 103/ul Critically high 4.0-11.0 [facility] Comment on above: Performed By: #### C VDTBH #### [facility] [address] [place] [address] Dr. Nannette Baker GLUCOSE - 1HRon 08-23-2021 Glucose [Mass/Vol] 104 mg/dL Normal 74-106 [facility] Comment on above: Performed By: #### T HCCONF #### [facility] [address] [place] [address] Dr. Nannette Baker CHLAMYDIA/GONOCOCCUS CHARLENE (SW AB/URINE/PAPon 08-02-2021 Chlamydia trachomatis, CHARLENE Negative Normal Negative [facility] Comment on above: Performed By: #### T HCCONF #### [facility] [address] [place] [address] Dr. Nannette Baker Neisseria gonorrhoeae, CHARLENE Negative Normal Negative [facility] Comment on above: Performed By: #### T HCCONF #### [facility] [address] [place] [address] Dr. Nannette Baker VAGINITIS/VAGINOSIS DNA PROB Dipak 08-01-2021 Niesha species Negative Normal Negative [facility] Comment on above: Performed By: #### V AGINT #### [facility] [address] [address] [address] Nannette Baker Gardnerella vaginalis Positive Abnormal Negative [facility] Comment on above: Performed By: #### V AGINT #### [facility] [address] [address] [address] Nannette Baker Trichomonas vaginalis Negative Normal Negative [facility] Comment on above: Performed By: #### V AGINT #### [facility] [address] [address] [address] Nannette Baker AFP MATERNAL FOR SPINA BIFID Aon 07-04-2021 AFP MoM 1.32 Normal [facility] Comment on above: Performed By: #### A FPMAT #### [facility] [address] [address] [address] Nannette Baker AFP Value 83.8 ng/mL Normal [facility] Comment on above: Performed By: #### A FPMAT #### [facility] [address] [address] [address] Nannette Baker AFP, Serum for Spina Bifida Report Normal [facility] Comment on above: Performed By: #### A FPMAT #### [facility] [address] [address] [address] Nannette Baker Comment Comment Normal [facility] Comment on above: Result Comment: Jamar Muñiz, Ph.D., [facility] Director . References: Available Upon Request. . Multiples Of Median Cutoffs For AFP Elevations Springer 2.5 Black 2.8 IDD 2.0 Twins 4.5 Abbreviation Definitions IDD - Insulin Dep Diabetes OSBR - Open Spina Bifida Risk . For further inquiries contact [employer] [facility] at [phone]. Performed By: #### A FPMAT #### [facility] [address] [address] [address] Nannette Baker Gest Age Collection Date 20.0 weeks Normal [facility] Comment on above: Performed By: #### A FPMAT #### [facility] [address] [address] [address] Nannette Baker Gestat, Age Based on MARIO [facility] Comment on above: Result Comment: 10/25 Recalculations are not recommended when gestational dating by LMP and ultrasound are within 10 days. Performed By: #### A FPMAT #### [facility] [address] [place] [address] Dr. Nannette Baker Insulin Dep Diabetes No Normal [facility] Comment on above: Performed By: #### A FPMAT #### [facility] [address] [place] [address] Dr. Nannette Baker Interpretation Comment Normal [facility] Comment on above: Result Comment: Inte [...] Customer Services to discuss available options. The [employer] recommends amniocentesis be offered to women age 35 and older. Performed By: #### A FPMAT #### [facility] [address] [place] [address] Dr. Nannette Baker [age] Normal [facility] Comment on above: Performed By: #### A FPMAT #### [facility] [address] [place] [address] Dr. Nannette Baker Multiple Gestation No Normal [facility] Comment on above: Performed By: #### A FPMAT #### [facility] [address] [place] [address] Dr. Nannette Baker OSBR Risk 1 [place] [address] [facility] Comment on above: Performed By: #### A FPMAT #### [facility] [address] [place] [address] Dr. Nannette Baker PDF . Normal [facility] Comment on above: Performed By: #### A FPMAT #### [facility] [address] [address] [address] Nannette Baker Race Normal [facility] Comment on above: Performed By: #### A FPMAT #### [facility] [address] [address] [address] Nannette Baker Test Results: Negative Normal [facility] Comment on above: Performed By: #### A FPMAT #### [facility] [address] [address] [address] Nannette Baker US PREG ANATOMY SINGLEon [...] SAMIR SHANNON Date: 2021-07-02 12:33 Normal [facility] HEP B SURFACE ANTIGEN SCREEN on 05-02-2021 HBsAg Screen Negative Normal Negative [facility] Comment on above: Performed By: #### H BSANS #### [facility] [address] [place] [address] Dr. Nannette Baker HEPATITIS C VIRUS AB W/ REFL EX QUANTon 05-02-2021 HCV AB <0.1 Normal 0.0-0.9 [facility] Comment on above: Performed By: #### T HCCONF #### [facility] [address] [place] [address] Dr. Nannette Baker Interpretation: Comment Normal [facility] Comment on above: Result Comment: Nega tive Not infected with HCV, unless recent infection is suspected or other evidence exists to indicate HCV infection. Performed By: #### T HCCONF #### [facility] [address] [place] [address] Dr. Nannette Baker HIV 1 AND 2 WITH REFLEXon HIV Screen 4th Generation wRfx Non-Reactive Normal Non Reactive [facility] Comment on above: Result Comment: HIV Negative HIV-1/HIV-2 antibodies and HIV-1 p24 antigen were NOT detected. There is no laboratory evidence of HIV infection. Performed By: #### C VDTBH #### [facility] [address] [place] [address] Dr. Nannette Baker RPR QUANTon 05-02-2021 Rapid Plasma Reagin, Quant Non-Reactive Normal NonRea<1:1 [facility] Comment on above: Performed By: #### C VDTBH #### [facility] [address] [place] [address] Dr. Nannette Baker RUBELLA AB IGGon 05-02-2021 Rubella Antibodies, IgG 2.65 index Normal Immune >0.99 [facility] Comment on above: Result Comment: Non- immune <0.90 Equivocal 0.90 - 0.99 Immune >0.99 Performed By: #### R UBIGG #### [facility] [address] [place] [address] Dr. Nannette Baker CBC AUTO DIFFon 04-30-2021 BASO # 0.1 103/ul Normal 0.0-0.1 [facility] Comment on above: Performed By: #### T HCCONF #### [facility] [address] [place] [address] Dr. Nannette Baker Basophils/100 WBC (Bld) 0.5 % Normal 0.2-2.0 [facility] Comment on above: Performed By: #### T HCCONF #### [facility] [address] [place] [address] Dr. Nannette Baker EO # 0.2 103/ul Normal 0.0-0.7 [facility] Comment on above: Performed By: #### T HCCONF #### [facility] [address] [place] [address] Dr. Nannette Baker Eosinophils/100 WBC (Bld) 1.5 % Normal 0.9-7.0 [facility] Comment on above: Performed By: #### T HCCONF #### [facility] [address] [place] [address] Dr. Nannette Baker Erythrocyte distribution width (RBC) [Ratio] 11.9 % Normal 11.0-15.0 [facility] Comment on above: Performed By: #### T HCCONF #### [facility] [address] [place] [address] Dr. Nannette Baker Hematocrit (Bld) [Volume fraction] 33.9 % Critically low 36.0-48.0 [facility] Comment on above: Performed By: #### T HCCONF #### [facility] [address] [place] [address] Dr. Nannette Baker Hemoglobin (Bld) [Mass/Vol] 11.9 g/dL Critically low 12.0-16.0 [facility] Comment on above: Performed By: #### T HCCONF #### [facility] [address] [place] [address] Dr. Nannette Baker IG # 0.02 10e3/ul Normal 0.00-0.03 [facility] Comment on above: Performed By: #### T HCCONF #### [facility] [address] [place] [address] Dr. Nannette Baker IG % 0.2 % Normal 0.0-0.5 [facility] Comment on above: Performed By: #### T HCCONF #### [facility] [address] [address] [address] Nannette Baker LYMPH # 1.8 103/ul Normal 1.2-3.8 [facility] Comment on above: Performed By: #### T HCCONF #### [facility] [address] [address] [address] Nannette Baker Lymphocytes/100 WBC (Bld) 17.3 % Critically low 20.5-60.0 [facility] Comment on above: Performed By: #### T HCCONF #### [facility] [address] [address] [address] Nannette Baker MANUAL DIFF REQ NO Normal [facility] Comment on above: Performed By: #### T HCCONF #### [facility] [address] [address] [address] Nannette Baker MCH (RBC) [Entitic mass] 31.7 pg Normal 26.7-34.0 [facility] Comment on above: Performed By: #### T HCCONF #### [facility] [address] [address] [address] Nannette Baker MCHC (RBC) [Mass/Vol] 35.1 g/dL Normal 29.9-35.2 [facility] Comment on above: Performed By: #### T HCCONF #### [facility] [address] [address] [address] Nannette Baker MCV (RBC) [Entitic vol] 90.4 fL Normal 81.0-99.0 [facility] Comment on above: Performed By: #### T HCCONF #### [facility] [address] [address] [address] Nannette Baker MONO # 0.5 103/ul Normal 0.3-0.8 [facility] Comment on above: Performed By: #### T HCCONF #### [facility] [address] [address] [address] Nannette Baker Monocytes/100 WBC (Bld) 4.2 % Normal 1.7-12.0 [facility] Comment on above: Performed By: #### T HCCONF #### [facility] [address] [address] [address] Nannette Baker NEUT # 8.1 103/ul Critically high 1.4-6.5 [facility] Comment on above: Performed By: #### T HCCONF #### [facility] [address] [address] [address] Nannette Baker Neutrophils/100 WBC (Bld) 76.3 % Critically high 43.0-75.0 [facility] Comment on above: Performed By: #### T HCCONF #### [facility] [address] [address] [address] Nannette Baker Platelet mean volume (Bld) [Entitic vol] 9.3 fL Critically low 9.5-13.5 [facility] Comment on above: Performed By: #### T HCCONF #### [facility] [address] [place] [address] Dr. Nannette Baker PLT 257 103/ul Normal 150-450 [facility] Comment on above: Performed By: #### T HCCONF #### [facility] [address] [place] [address] Dr. Nannette Baker RBC 3.75 106/ul Critically low 4.20-5.40 [facility] Comment on above: Performed By: #### T HCCONF #### [facility] [address] [place] [address] Dr. Nannette Baker WBC 10.6 103/ul Normal 4.0-11.0 [facility] Comment on above: Performed By: #### T HCCONF #### [facility] [address] [address] [address] Nannette Baker CULTURE URINEon 04-30-2021 CULTURE URINE Culture Observations: LIGHT GROWTH OF MIXED GENITAL RENETTA. NO POTENTIAL PATHOGENS SEEN. Normal [facility] Comment on above: Performed By: #### U RCX #### [facility] [address] [place] [address] Dr. Nannette Baker GLYCOHEMOGLOBIN A1Con 2021 ADA RECOMMENDATION ADA THERAPEUTIC TARGET 6.0 - 7.0 ACTION SUGGESTED > 7.0 Normal [facility] Comment on above: Performed By: #### T HCCONF #### [facility] [address] [place] [address] Dr. Nannette Baker Glucose [Mass/Vol] 91 mg/dL Normal [facility] Comment on above: Performed By: #### T HCCONF #### [facility] [address] [place] [address] Dr. Nannette Baker HbA1c (Bld) [Mass fraction] 4.8 % Normal <=6.0 [facility] Comment on above: Performed By: #### T HCCONF #### [facility] [address] [place] [address] Dr. Nannette Baker MANNY BOX TEST PT SEND OUTo n 04-30-2021 SENT TO REF LAB 04/30/2021 Normal [facility] Comment on above: Performed By: #### C VDTBH #### [facility] [address] [place] [address] Dr. Nannette Baker TYPE AND SCREENon 04-30-2021 TYPE AND SCREEN Negative Normal [facility] Comment on above: Performed By: #### C VDTBH #### [facility] [address] [place] [address] Dr. Nannette Baker US PREG TVon 04-05-2021 [...] by: WENDY POZO Date: 2021-04-05 09:09 Normal [facility] Vital Signs Date Time Vital Sign Value Performing Clinician Facility 01-02-2023 13:00-0500 Diastolic blood pressure 80 mm[Hg] [facility] 01-02-2023 13:00-0500 Heart rate 60 /min [facility] 01-02-2023 13:00-0500 Respiratory rate 14 /min [facility] 01-02-2023 13:00-0500 Systolic blood pressure 110 mm[Hg] [facility] 01-02-2023 10:19-0500 Diastolic blood pressure 81 mm[Hg] [facility] 01-02-2023 10:19-0500 Heart rate 67 /min [facility] 01-02-2023 10:19-0500 Mean blood pressure 90 mm[Hg] [facility] 01-02-2023 10:19-0500 Respiratory rate 16 /min [facility] 01-02-2023 10:19-0500 SaO2% (BldA) [Mass fraction] 100 % [facility] 01-02-2023 10:19-0500 Systolic blood pressure 107 mm[Hg] [facility] 01-02-2023 08:58-0500 Body temperature 97.88 [degF] [facility] 01-02-2023 08:58-0500 Diastolic blood pressure 77 mm[Hg] [facility] 01-02-2023 08:58-0500 Heart rate 77 /min [facility] 01-02-2023 08:58-0500 Respiratory rate 18 /min [facility] 01-02-2023 08:58-0500 Systolic blood pressure 125 mm[Hg] [facility] 06-21-2022 05:00-0400 Diastolic blood pressure 80 mm[Hg] Ritesh Naida [facility] 06-21-2022 05:00-0400 Heart rate 65 /min Ritesh Naida [facility] 06-21-2022 05:00-0400 Hourly Rounding Ritesh Naida [facility] 06-21-2022 05:00-0400 Promise to Return Ritesh Naida [facility] 06-21-2022 05:00-0400 Respiratory rate 12 /min Ritesh Naida [facility] 06-21-2022 05:00-0400 SaO2% (BldA) [Mass fraction] 99 % Ritesh Naida [facility] 06-21-2022 05:00-0400 Systolic blood pressure 121 mm[Hg] Ritesh Naida [facility] 06-21-2022 04:00-0400 Diastolic blood pressure 79 mm[Hg] Ritesh Naida [facility] 06-21-2022 04:00-0400 Heart rate 67 /min Ritesh Naida [facility] 06-21-2022 04:00-0400 Hourly [address] Ritesh Naida [facility] 06-21-2022 04:00-0400 Promise to Return Ritesh Naida [facility] 06-21-2022 04:00-0400 Respiratory rate 16 /min Ritesh Naida [facility] 06-21-2022 04:00-0400 SaO2% (BldA) [Mass fraction] 100 % Ritesh Naida [facility] 06-21-2022 04:00-0400 Systolic blood pressure 116 mm[Hg] Ritesh Niada [facility] 06-21-2022 03:00-0400 Diastolic blood pressure 78 mm[Hg] Ritesh Naida [facility] 06-21-2022 03:00-0400 Heart rate 64 /min Ritesh Naida [facility] 06-21-2022 03:00-0400 Hourly Round[address] Ritesh Naida [facility] 06-21-2022 03:00-0400 Promise to Return Ritesh Naida [facility] 06-21-2022 03:00-0400 Systolic blood pressure 118 mm[Hg] Ritesh Naida [facility] 06-20-2022 23:24-0400 Body temperature 98.24 [degF] Ritesh Naida [facility] 07-04-2021 02:06-0400 Body weight 62.[address] GINNY REBOLLEDO [facility] Comment on above: Performed By: #### AFPMAT #### [facility] [address] [place] [address] Dr. Nannette Baker Encounters Encounter Date Encounter Type Care Provider Facility Start: 03-05-2023 End: 03-05-2023 ambulatory GINNY ERIKA Not Available Start: 01-22-2023 End: 01-22-2023 ambulatory GINNY ERIKA Not Available Start: 01-02-2023 End: 01-02-2023 Emergency department patient visit Yesimary Westbren Facility[facility] Start: 01-02-2023 End: 01-02-2023 [facility] Start: 06-21-2022 End: 06-21-2022 Emergency department patient visit Ritesh Pascal Facility:[facility] Start: 06-20-2022 End: 06-21-2022 Emergency department patient visit Ritesh Pascal [facility] Start: 11-12-2021 End: 11-13-2021 Evaluation and [...] Immunizations Immunization Date Immunization Notes Care Provider [facility] 08-11-2016 tetanus toxoid, redu angelica diphtheria toxoid, and acellular pertussis vaccine, adsorbed Ritesh Pascal [facility] Payers Date Payer Category Payer Unknown [id number] 2.16.84 [id number] 1997 Unknown [id number] 2.16.84 [id number] 1997 Unknown [id number] 2.16.84 [id number] 1997 Unknown [id number] 2.16.84 [id number] 1997 Unknown [id number] 2.16.84 [id number] 1997 Unknown [id number] 2.16.84 [id number] 1997 Unknown [id number] 2.16.84 [id number] 1997 Unknown [id number] 2.16.84 0.1.464535.3.579.2.593 1997 Unknown [id number] 2.16.84 0.1.911907.3.579.2.593 1997 Unknown [id number] 2.16.84 0.1.410301.3.579.2.593 1997 Unknown [id number] 2.16.84 0.1.341177.3.579.2.593 1997 Unknown [id number] 2.16.8 40.1.533611.3.579.2.727 1997 Unknown [id number] 2.16.8 40.1.522053.3.579.2.727 1997 Unknown [id number] 2.16.84 0.1.239726.3.579.2.1259 1997 Unknown [id number] 2.16.840 .[id number] 1959 Self-pay 1959 Unknown [id number] 1959 Unknown [id number] Unknown [id number] 2.16.84 [id number] Social History Date Type Detail Facility Tobacco [facility] Comment on above: Denies. Tobacco smoking status No Smokin g Status Entered [facility] Sex Assigned At Female [facility] Functional Status Date Assessment Result Facility 01-02-2023 Functional Status N/A [facility] 06-20-2022 Functional Status N/A [facility] Hospital Discharge instructions 01-02-2023 Note Date [...] your visits. Where to find more information [employer]: [email or web address] [employer]: [email or web address] [...] provider. Document Revised: 07/18/2020 Document Reviewed: 05/24/2020 [employer] Patient Education 2022 [email or web address] 01/02/2023 13:45:55 Diarrhea, Adult Diarrhea, Adult Diarrhea [...] oral rehydration solution (ORS). This is an edli-kso-yzxmbee medicine that helps return your body to [...] drinks, sports drinks, and soda. Eat bland, mwtd-kr-bpfcwa foods in small amounts as you are able. These foods include bananas, applesauce, rice, lean meats, toast, and crackers. Avoid alcohol. Avoid spicy or fatty foods. Medicines Take tpws-ufz-fhmuxsn and prescription medicines only as told by your health care provider. If you were prescribed an antibiotic medicine, take it as told by your health care provider. Do not stop using the antibiotic even if you start to feel better. General instructions Wash your hands often using soap and water. If soap and water are not available, use a hand survey project manager. Others in the household should wash their [...] and water are not available, use hand survey project manager. Contact a health care provider if your diarrhea gets worse or you have new symptoms. Get help right away if you have signs of dehydration. This information is not intended to replace advice given to you by your health care provider. Make sure you discuss any questions you have with your health care provider. Document Revised: 08/21/2021 Document Reviewed: 08/21/2021 [employer] Patient Education 2022 [email or web address]. 01/02/2023 13:45:55 Nausea and Vomiting, Adult Nausea [...] water added (diluted fruit juice). Eat bland, apdh-us-fnnqwy foods in small amounts as you are able. These foods include bananas, applesauce, rice, lean meats, toast, and crackers. Avoid fluids that contain a lot of sugar or caffeine, such as energy drinks, sports drinks, and soda. Avoid alcohol. Avoid spicy or fatty foods. General instructions Take juln-vow-puazocd and prescription medicines only as told by your health care provider. Drink enough fluid to keep your urine pale yellow. Wash your hands often using soap and water for at least 20 seconds. If soap and water are not available, use hand survey project manager. Make sure that everyone in your household [...] eating and drinking to prevent dehydration. Take czgs-iji-spmeapf and prescription medicines only as told by [...] provider. Document Revised: 08/16/2021 Document Reviewed: 08/16/2021 [employer] Patient Education 2022 [email or web address]. 01/02/2023 13:45:55 Abdominal Pain, Adult Abdominal Pain, [...] Follow these instructions at home: Medicines Take yptd-dxj-rsaulca and prescription medicines only as told by [...] Watch your condition for any changes. Take rcyj-box-sydcqqd and prescription medicines only as told by [...] provider. Document Revised: 03/30/2020 Document Reviewed: 06/20/2019 [employer] Patient Education 2022 [email or web address]. Follow Up Care 01/02/2023 08:54:27 With:Ginny REBOLLEDO Address: [address] [place] [address] [facility] (1) When:01/05/2023 13:27:46 Comments:Make sure to follow-up with Dr. Rebolledo for your . Follow-up with Dr. Cuellar for the belly pain. Return to the emergency room if the abdominal pain recurs, vomiting recurs, vaginal bleeding or any new symptoms. With:Patricia Murrieta Address:Unknown When:01/05/2023 13:27:38 [facility] Evaluation + Plan note 01-02-2023 Note Date & Type Note Facility 01-02-2023 Evaluation + Plan note Extrac jose alfredo from: Title:ED Note Author:Jennifer Lopez, Amado Aguilar te:01/02/23 1. Abdominal pain (R10.9: Un specified [...] QID, # 20 cap(s), Refills(s) 0, Pharmacy: [facility]/pharmacy #[id number], 160.1, cm, 01/02/23 9:00:00 EST, Height/Length [...] Nausea/Vomiting, # 12 tab(s), Refills(s) 0, Pharmacy: [facility]/pharmacy #[id number], 160.1, cm, 01/02/23 9:00:00 EST, Height/Length [...] US Gallbladder US 1st Trimester US Transvaginal [facility] Evaluation + Plan note 06-21-2022 Note [...] Pain, # 14 tab(s), Refills(s) 0, Pharmacy: [facility]/pharmacy #[id number], 160, cm, 06/20/22 23:30:00 EDT, Height/Length [...] Nausea/Vomiting, # 16 tab(s), Refills(s) 0, Pharmacy: [facility]/pharmacy #[id number], 160, cm, 06/20/22 23:30:00 EDT, Height/Length [...] With Cult Reflex US Pelvis Non-OB Complete [facility] Hospital Discharge instructions 06-21-2022 Note Date [...] Follow these instructions at home: Medicines Take euql-frt-igbqfyf and prescription medicines only as told by [...] Watch your condition for any changes. Take wvgw-wtr-gykibyi and prescription medicines only as told by [...] provider. Document Revised: 03/30/2020 Document Reviewed: 06/20/2019 [employer] Patient Education 2022 [email or web address] Follow Up Care 06/20/2022 23:21:21 With:Keith GARCIA Address: [address] [place] [id number] (1) When:06/24/2022 [facility] Hospital course Narrative Note Date & Type Note Facility Hospital course Narrative No data available for this section [facility] Progress note Note Date & Type Note Facility Progress note No data available for this section [facility] Summary Purpose Family History No Family History Records Found No data available for this section No Family History Records FoundNo Family History Records Found Advance Directives No Advanced Directives Records FoundNo Advanced Directives Records FoundNo Advanced Directives Records Found Additional Source Comments INFORMATION SOURCE (unrecogn ized section and content) DATE CREATED AUTHOR 11/24/2021 [facility] DATE CREATED AUTHOR AUTHOR'S ORGANIZ ATION 01/04/2023 [facility] DATE CREATED AUTHOR AUTHOR'S ORGANIZ ATION 03/06/2023 [facility] EPIC Patient Care team informatio n (unrecognized section and content) Personnel Name: Keith GARCIA DO Address: Address: [address] [place] [id number] Personnel Name: NONE, XXXX Address: Address: [facility] FOR RECORDS PERTAINING TO PATIENTS WHO ARE [...] BE BASED ON THE PRIMARY CLINICAL RECORDS. [employer] provides no warranty or guarantee of the accuracy or completeness of information in this document.
== END 2023-04-09 08:37 | disposition home or self-care (01) ==
LOC: NOMS 08:36
PROVIDERS: Visit Provider Obstetrics & Gynecology
DX: Z36.89 Encounter for other specified antenatal screening (principal); Z3A.20 20 weeks gestation of pregnancy; O44.42 Low lying placenta NOS or without hemorrhage, second trimester
CPT/HCPCS: 76805; 76817

== ENCOUNTER 2023-05-11 13:32 | Outpatient (OUT) | payer BC, SELFPAY ==
--- NOTE | 2023-05-11 13:34 | US_ITS ---
[address] [address] Patient Name: LEENA CORDERO MRN: [facility]:[id number] date: 1995 Sex: F Assigned Patient Location: [facility] Current Patient Location: [facility] Accession/Order Number: [id number] Exam Date: 05/11/2023 13:35 Report Date: 05/11/2023 14:15 At the request of: GINNY JAMES Procedure: US OB placenta EXAM: US OB placenta, US OB cervical length HISTORY: LOW LYING PLACENTA COMPARISON: None. TECHNIQUE: Abdominal and transvaginal FINDINGS: The placental edge is 5.5 cm from the internal os Placenta: Posterior. No intraplacental or retroplacental echogenic abnormality position: Cephalic presentation, longitudinal lie Cervix: Closed, 4.2 cm Heart rate: 150 beats minute Clinical age: 24 weeks, 4 days Clinical MARIO: 08/27/2023 US/US OB placenta IMPRESSION: Normal placenta, the placental edge is 5.5 cm from the internal os Closed cervix measuring 4.2 cm in length Electronically authenticated by: WENDY POZO Date: 05/11/2023 14:15
--- NOTE | 2023-05-11 13:34 | US_ITS ---
[address] [address] Patient Name: LEENA CORDERO MRN: [facility]:[id number] date: 1995 Sex: F Assigned Patient Location: [facility] Current Patient Location: [facility] Accession/Order Number: [id number] Exam Date: 05/11/2023 13:35 Report Date: 05/11/2023 14:15 At the request of: GINNY JAMES Procedure: US OB cervical length EXAM: US OB placenta, US OB cervical length HISTORY: LOW LYING PLACENTA COMPARISON: None. TECHNIQUE: Abdominal and transvaginal FINDINGS: The placental edge is 5.5 cm from the internal os Placenta: Posterior. No intraplacental or retroplacental echogenic abnormality position: Cephalic presentation, longitudinal lie Cervix: Closed, 4.2 cm Heart rate: 150 beats minute Clinical age: 24 weeks, 4 days Clinical MARIO: 08/27/2023 US/US OB cervical length IMPRESSION: Normal placenta, the placental edge is 5.5 cm from the internal os Closed cervix measuring 4.2 cm in length Electronically authenticated by: WENDY POZO Date: 05/11/2023 14:15
--- OUTSIDE RECORDS SUMMARY | 2023-05-11 13:43 | XMS_ITS | CCD ---
Author Name Unknown Address [address] [facility] [address] [place] [address] Organization [facility] Care Team Providers Care Head Of Mathematics Name Role Phone KESHA, DR GROSS Admitting Unavailable KESHA, DR GROSS Consulting Unavailable MISC, DR LOPES Primary Care Unavailable KESHA, DR GROSS Attending Unavailable KESHA, DR GROSS Admitting Unavailable KESHA, DR GROSS Consulting Unavailable MISC, DR LOPES Primary Care Unavailable KESHA, DR GROSS Attending Unavailable KESHA, DR GROSS Consulting Unavailable KESHA, DR GROSS Attending Unavailable KESHA, DR GROSS Admitting Unavailable REQUEST, DR ELSIE LISTED Primary Care Unavaila ble ZIEBFELISHA, DR SAMIR Edgar Consulting Unavailable KESHA, DR GROSS Attending Unavailable MISC, DR LOPES Primary Care Unavailable KESHA, DR GROSS Admitting Unavailable KESHA, DR GROSS Consulting Unavailable KESHA, DR GROSS Attending Unavailable MISC, DR LOPES Primary Care Unavailable KESHA, DR GROSS Admitting Unavailable [place], DR WENDY Christiansen Consulting Unavailable KESHA, DR GROSS Consulting Unavailable KESHA, DR GROSS Attending Unavailable KESHA, DR GROSS Admitting Unavailable MISC, DR LOPES Primary Care Unavailable KESHA, DR GROSS Consulting Unavailable KESHA, DR GROSS Admitting Unavailable MISC, DR LOPES Primary Care Unavailable KESHA, DR GROSS Consulting Unavailable KESHA, DR GROSS Attending Unavailable ZIEBER, DR SAMIR Edgar Consulting Unavailable KESHA, DR GROSS Attending Unavailable KESHA, DR GROSS Admitting Unavailable KESHA, DR GROSS Consulting Unavailable MISC, DR LOPES Primary Care Unavailable KESHA, DR GROSS Attending Unavailable KESHA, DR GROSS Admitting Unavailable MISC, DR LOPES Primary Care Unavailable KESHA, DR GROSS Consulting Unavailable LARA YOON Consulting Unavailable KESHA, DR GROSS Procedure Practitioner Unavailab kavon REBOLLEDO, DR GROSS Admitting Unavailable MISC, DR LOPES Primary Care Unavailable KESHA, DR GROSS Consulting Unavailable KESHA, DR GROSS Attending Unavailable ZIEBER, DR SAMIR Edgar Consulting Unavailable MISC, DR LOPES Primary Care Unavailable KARASIK, DR WHITTEN Attending Unavailable KARASIK, DR WHITTEN Admitting Unavailable KARASIK, DR WHITTEN Consulting Unavailable KESHA, DR GROSS Admitting Unavailable MISC, DR LOPES Primary Care Unavailable KESHA, DR GROSS Consulting Unavailable KESHA, DR GROSS Attending Unavailable Keith GARCIA Primary Care Physician NONE, XXXX Primary Care Physician Unavailab Ritesh David Attending Unavailable Amado Rodriguez Attending Unavailable Unavailable Primary Care Provider Unavailabl GINNY Diaz Attending Unavailable GINNY REBOLLEDO Attending Unavailable Medications [...] QID, # 20 cap(s), Refills(s) 0, Pharmacy: [facility]/pharmacy #[id number], 160.1, cm, 01/02/23 9:00:00 EST, Height/Length Dosing, 58.8, kg, 01/02/23 9:00:00 EST, Weight Dosing Start Date: 01/02/23 Status: Ordered ethinyl estradiol 0.02 mg / norethindrone acetate 1 mg oral tablet (1 source) Estrogen Start: 08-14-2020 Microgestin /20 20 mcg-1 mg oral tablet Refill(s) 0 Start Date: 08/14/20 Status: Ordered naproxen 500 mg delayed release oral tablet (1 source) Nonsteroidal Anti-inflammatory Drug Start: 06-21-2022 take 1 tablet by mouth twice daily as needed for pain naproxen 500 mg oral enteric coated tablet 500 mg = 1 tab(s), Oral, BID, PRN Pain, # 14 tab(s), Refills(s) 0, Pharmacy: [facility]/pharmacy #[id number], 160, cm, 06/20/22 23:30:00 EDT, Height/Length Dosing, 55, kg, 06/20/22 23:30:00 EDT, Weight Dosing Start Date: 06/21/22 Status: Ordered ondansetron 4 mg disintegrating oral tablet (2 sources) Serotonin-3 Receptor Antagonist Start: 01-22-2023 take 1 tablet by mouth every six hours as needed for nausea and vomiting ondansetron ODT (Zofran-ODT) 4 MG disintegrating tablet Indications: Nausea TAKE 1 TABLET BY MOUTH EVERY 6 HOURS NEEDED FOR NAUSEA AND VOMITING 20 tablet 3 01/22/2023 Active Zofran ODT 4 mg Tab-Dis (2 sources) Start: 01-02-2023 take 1 tablet by mouth every six hours as needed for nausea Zofran ODT 4 mg Tab-Dis 4 mg = 1 tab(s), Oral, q6hr, PRN Nausea/Vomiting, # 12 tab(s), Refills(s) 0, Pharmacy: [facility]/pharmacy #[id number], 160.1, cm, 01/02/23 9:00:00 EST, Height/Length Dosing, 58.8, kg, 01/02/23 9:00:00 EST, Weight Dosing Start Date: 01/02/23 Status: Ordered Start: 06-21-2022 take 1 tablet by mandy th every eight hours as needed for nausea Zofran ODT 4 mg Tab-Dis 4 mg = 1 tab(s), Oral, q8hr, PRN Nausea/Vomiting, # 16 tab(s), Refills(s) 0, Pharmacy: [facility]/pharmacy #[id number], 160, cm, 06/20/22 23:30:00 EDT, Height/Length [...] 01-02-2023 Episodic Other and delivery including normal (13 sources) Single live ; Translations: [Encounter for supervision of normal , unspecified, unspecified trimester] Onset: 04-10-2021 Episodic Other screening for suspected conditions (not mental disorders or infectious disease) (15 sources) Encounter for screening for Streptococcus B; [...] Test Name Value Interpretation Reference Range Facility Urinalysis macro (dipstick) panel (U)on 04-09-2023 Bilirubin, UA Negative Negative - 4(70) +++ mg/dL [facility] Blood, UA Negative Negative - 50 Luis/mcL [facility] Clarity, UA Clear [facility] Color, UA Yellow [facility] Glucose, UA Negative Negative - 1999(110) ++++ mg/dL [facility] Interpretation and review of laboratory results Normal [facility] Ketones, UA Negative Negative - 160(16) ++++ mg/dL [facility] Leukocytes, UA Negative Negative - 500+++ Telma/mcL [facility] Nitrite, UA Negative Negative - Positive [facility] pH, UA 7.5 5 - 9 [facility] Protein, UA Negative Negative - 2000(20) ++++ mg/dL [facility] Spec Grav, UA 1.025 1 - 1.03 [facility] Urobilinogen, UA 0.2 0.2 - 12 mg/dL [facility] Auto Diffon 01-02-2023 Basophils/100 WBC (Bld) 0.2 % Normal 0.0-2.0 [facility] Comment on above: Order Comment: Order Added by Discern Expert. Performed By: #### 2 305335, [id number], 7301449, 0347214, 8068000, 1955192, 44803996 ####[facility] [address] [place] [address] Basophils/Leukocytes Auto (Bld) [Pure # fraction] 0.0 E9/L Normal 0.0-0.2 [facility] Comment on above: Order Comment: Order Added by Discern Expert. Performed By: #### 2 666849, 76215206, 1356214, 8325971, 1590134, 7585859, 26007183 ####[address] [place] [address] Eosinophils/100 WBC (Bld) 0.1 % Normal 0.0-8.0 [facility] Comment on above: Order Comment: Order Added by Discern Expert. Performed By: #### 2 556421, 95698769, 9206130, 4872114, 0688688, 8439119, 02902653 ####[address] [address] Eosinophils/Leukocytes Auto (Bld) [Pure # fraction] 0.0 E9/L Normal 0.0-0.5 [facility] Comment on above: Order Comment: Order Added by Discern Expert. Performed By: #### 2 148044, 25704346, 2047163, 3636651, 3368984, 4636465, 75965753 ####[facility] [address] [place] [address] Lymphocytes/100 WBC (Bld) 8.0 % Low 14.0-50.0 [facility] Comment on above: Order Comment: Order Added by Discern Expert. Performed By: #### 2 972356, 89733192, 0348465, 6742573, 6896322, 0225453, 32765480 ####[address] [address] Lymphocytes/Leukocytes Auto (Bld) [Pure # fraction] 1.1 E9/L Normal 1.0-4.0 [facility] Comment on above: Order Comment: Order Added by Discern Expert. Performed By: #### 2 547253, 26572223, 5445348, 9510621, 2852655, 4744484, 03040362 ####[address] [place] [address] Monocytes/100 WBC (Bld) 2.9 % Low 4.0-14.0 [facility] Comment on above: Order Comment: Order Added by Discern Expert. Performed By: #### 2 405755, 54861378, 0958162, 2101345, 0917424, 8380391, 66024893 ####[address] [address] Monocytes/Leukocytes Auto (Bld) [Pure # fraction] 0.4 E9/L Normal 0.2-1.0 [facility] Comment on above: Order Comment: Order Added by Discern Expert. Performed By: #### 2 383342, 83241211, 1636211, 7373966, 9948697, 2901883, 80372551 ####[address] [address] Neutrophils/100 WBC (Bld) 88.8 % High 36.0-75.0 [facility] Comment on above: Order Comment: Order Added by Discern Expert. Performed By: #### 2 946851, 18692302, 7521690, 2493229, 1703488, 5035846, 88672801 ####[address] [place] [address] Neutrophils/Leukocytes Auto (Bld) [Pure # fraction] 12.0 E9/L High 2.0-7.5 [facility] Comment on above: Order Comment: Order Added by Discern Expert. Performed By: #### 2 998454, 09156834, 5978787, 3165790, 1365003, 5588600, 60944180 ####[address] [place] [address] BMPon 01-02-2023 Creatinine [Mass/Vol] 0.5 mg/dL Normal 0.5-1.3 [facility] Comment on above: Performed By: #### 2 129908, 70326111, 6795452, 8599015, 4673694, 5795045, 47941419 ####[facility] [address] [place] [address] Urea nitrogen [Mass/Vol] 10 mg/dL Normal 5-21 [facility] Comment on above: Performed By: #### 2 337756, 52538931, 0085331, 5199594, 3842653, 5761219, 03327207 ####[facility] [address] [place] [address] Urea nitrogen/Creatinine [Mass ratio] 20 No Units Normal 10-20 [facility] Comment on above: Performed By: #### 2 994376, 86929274, 1523047, 5679095, 3005597, 0292812, 10546538 ####[facility] [address] [place] [address] Anion gap [Moles/Vol] 14 mmol/L Normal 6-16 [facility] Comment on above: Performed By: #### 2 898059, 62382389, 1519435, 4737006, 6631868, 0788618, 18110185 ####[facility] [address] [place] [address] Calcium [Mass/Vol] 8.9 mg/dL Normal 8.9-11.1 [facility] Comment on above: Performed By: #### 2 035199, 96210821, 7846326, 3652767, 2344667, 9554342, 92448511 ####[facility] [address] [place] [address] Chloride [Moles/Vol] 103 mmol/L Normal 101-111 [facility] Comment on above: Performed By: #### 2 253090, 83815378, 2200613, 4509324, 6253290, 4551801, 62153298 ####[facility] [address] [place] [address] CO2 [Moles/Vol] 21 mmol/L Normal 21-31 [facility] Comment on above: Performed By: #### 2 594604, 11116399, 1698968, 9588147, 5172584, 0981180, 58468077 ####[facility] [address] [place] [address] Glucose [Mass/Vol] 119 mg/dL Normal 55-199 [facility] Comment on above: Result Comment: If t his glucose result represents a fasting glucose, interpretation should refer to the following reference range: 55-99 mg/dL Performed By: #### 2 291514, 12857553, 0660799, 2188202, 6903626, 7016134, 49526914 ####[facility] [address] [place] [address] Potassium [Moles/Vol] 3.2 mmol/L Low 3.5-5.3 [facility] Comment on above: Performed By: #### 2 909183, 82119252, 8952913, 3374919, 7527312, 0967927, 36387839 ####[facility] [address] [place] [address] Sodium [Moles/Vol] 135 mmol/L Normal 135-145 [facility] Comment on above: Performed By: #### 2 877766, 69818329, 0098824, 0947293, 1652419, 1643763, 85817363 ####[facility] [address] [place] [address] BhCG Quanton 01-02-2023 [place] [address] m[IU]/mL High 1-3 [facility] Comment on above: Result Comment: GEST ATIONAL AGE HCG RANGE (mIU/mL) NON- <1-3 0.2-1 WEEKS 5-50 1-2 WEEKS 50-500 2-3 WEEKS 100-5,000 3-4 WEEKS 500-10,000 4-5 WEEKS 1,000-50,000 5-6 WEEKS 10,000-100,000 6-8 WEEKS 15,000-200,000 8-12 WEEKS 10,000-100,000 Performed By: #### 2 709160 ####[facility] [address] [place] [address] CBC w/ Auto Diffon Erythrocyte distribution width (RBC) [Ratio] 12.3 % Normal 10.9-14.2 [facility] Comment on above: Performed By: #### 2 744991, 61966780, 4021055, 6131999, 5431330, 0980642, 22285664 ####[facility] [address] [place] [address] Hematocrit (Bld) [Volume fraction] 36.5 % Normal 34.0-46.0 [facility] Comment on above: Performed By: #### 2 920151, 75224932, 0605998, 2992683, 0821313, 0214906, 56839607 ####[facility] [address] [place] [address] Hemoglobin (Bld) [Mass/Vol] 12.4 g/dL Normal 12.0-16.0 [facility] Comment on above: Performed By: #### 2 105688, 76768881, 7865362, 2166412, 0319330, 6040974, 41743825 ####[facility] [address] [place] [address] MCH (RBC) [Entitic mass] 30.1 pg Normal 27.0-34.0 [facility] Comment on above: Performed By: #### 2 454072, 03652556, 0222892, 3085209, 4801730, 4070558, 94849082 ####[facility] [address] [place] [address] MCHC (RBC) [Mass/Vol] 33.9 g/dL Normal 31.4-36.0 [facility] Comment on above: Performed By: #### 2 102461, 69665996, 4271917, 3588430, 5298500, 7965525, 96885248 ####[address] [place] [address] MCV (RBC) [Entitic vol] 88.8 fL Normal 80.0-100.0 [facility] Comment on above: Performed By: #### 2 578470, 24016583, 9200567, 7203139, 9112114, 1424982, 51365220 ####[address] [address] Platelet mean volume (Bld) [Entitic vol] 7.4 fL Normal 6.4-10.8 [facility] Comment on above: Performed By: #### 2 172516, 89876272, 1954040, 4089600, 5594313, 0297824, 99586841 ####[address] [address] Platelets (Bld) [#/Vol] 283.0 E9/L Normal 150.0-500.0 [facility] Comment on above: Performed By: #### 2 384262, 91359342, 0049114, 4569305, 6181961, 8834459, 35488523 ####[address] [address] RBC (Bld) [#/Vol] 4.1 E12/L Low 4.3-5.9 [facility] Comment on above: Performed By: #### 2 944941, 68674550, 2628631, 0828589, 2257148, 5231457, 01733115 ####[address] [place] [address] WBC corrected for nucl RBC Auto (Bld) [#/Vol] 13.5 E9/L High 4.0-11.0 [facility] Comment on above: Performed By: #### 2 803737, 44993705, 5680242, 7193737, 5781362, 8793848, 20311741 ####[facility] [address] [place] [address] CHEMISTRYOrdered By: SYSTEM SYSTEM on 01-02-2023 Albumin [...] 133 mL/min/1.73 m2 Normal >=59mL/min/1 .73 m2 [facility] Comment on above: Interpretive Data: [...] reference range: 55-99 mg/[place] [address] m[IU]/mL High 1 - 3 mIU/mL [facility] Remisol Comment on above: Interpretive Data: G [...] 10 mg/dL Normal 5 - 21 mg/dL [facility] Urea nitrogen/Creatinine [Mass ratio] 20 mg/mg Normal 10 - 20 [facility] COAGULATIONOrdered By: Natalia Wang on 01-02-2023 aPTT Coag (PPP) [Time] 29.4 s Normal 25.1 - 36.5 second(s) [facility] Auto Coag Comment on above: Interpretive Data: Zachariah mojica 15 days - 4 weeks 1 - 5 months 6 - 11 months 1 - 5 years 6 - 10 years 11 - 17 years PTT Mean: 35.4 (27.6-45.6) Mean: 33.5 (24.8-40.7) Mean: 32.4 (25.1-40.7) Mean: 31.6 (24.0-39.2) Mean: 31.6 (26.9-38.7) Mean: 31.0 (24.6-38.4) Pediatric Reference ranges were obtained from a study by tavo Robledo alBert prepared from 1437 samples obtained at 7 different centers using the same coagulation reagent and instrumentation as [facility]. Currently there are no coagulation studies available worldwide for children to 14 days, and no normal ranges. Heparin therapeutic range (represented by Anti-Factor Xa activity of 0.2 - 0.4 U/mL) corresponds to PTT of 56.6 - 109.0 sec. INR Coag (PPP) [Relative time] 1.1 {INR} Invalid Interpretation Code [facility] Comment on above: Interpretive Data: I NR results are specifically intended to assess patients stabilized on long-term Anticoagulation therapy suggested INR s Less Intensive Anticoagulation 2.0 3.0 Conventional Range 3.0 4.5 PT Coag (PPP) [Time] 12.1 s Normal 9.4 - 1 2.5 second(s) [facility] Comment on above: Interpretive Data: 1 5 days - 4 weeks 1 - 5 months 6 -11 months 1 5 years 6 10 years 11 -17 years Mean: 11.2 (9.5 12.6) Mean: 11.0 (9.7 12.8) Mean: 11.0 (9.8 13.0) Mean: 11.3 (9.9 13.4) Mean: 11.7 (10.0 14.6) Mean: 11.8 (10.0 - 14.1) Pediatric Reference ranges were obtained from a study by tavo Robledo al. prepared from 1437 samples obtained at 7 different centers using the same coagulation reagent and instrumentation as [facility]. Currently there are no coagulation studies available worldwide for children to 14 days, and no normal ranges. Consent for Treatmenton 12-24 Consent for Treatment [id number] #1.00TIFF Normal [facility] Discharge Instructionson Discharge Instructions [id number]#1.00TIFF Normal [facility] ED Clinical Summaryon 2022 ED Clinical Summary [place] [id number] ED Clinical Summary Person Information Name: RUTH CORDERO/Eugenie Age: 27 Years : 1995 Sex: Female Language: Palauan PCP: NONE, XXXX Marital Status: Single Visit [...] 01/02/2023 13:45:55 01/02/2023 13:45:55 01/02/2023 13:45:55 ADDRESS: [address] [place] [place] [id number] PHYS DOC NOTES: MEDICAL INFORMATION: Prescriptions Given: New Medications [id number] [address] [facility] [place], [place] [id number], [phone] dicyclomine (Bentyl 10 mg Cap) 2 Capsules [...] Follow up: With: Address: When: Ginny REBOLLEDO [facility], [address] [place] [address] [place] [address] Business (1) In 3 days 01/05/2023 Comments: Make sure to follow-up with Dr. Rebolledo for your . Follow-up with Dr. Cuellar for the belly pain. Return to the emergency room if the abdominal pain recurs, vomiting recurs, vaginal bleeding or any new symptoms. With: Address: When: Patricia Murrieta In 3 days 01/05/2023 DIAGNOSIS: 1:Abdominal pain; 2:Vomiting and diarrhea; 3:Intrauterine ; Diarrhea, unspecified Normal [facility] ED Note-Physicianon 01-03-20 ED Note-Physician Basic [...] and Complexity of Problems Differential Diagnosis: [] [facility] Data External documents reviewed: [] [...] QID, # 20 cap(s), Refills(s) 0, Pharmacy: [facility]/pharmacy #[id number], 160.1, cm, 01/02/23 9:00:00 EST, Height/Length Dosing, [...] Nausea/Vomiting, # 12 tab(s), Refills(s) 0, Pharmacy: [facility]/pharm[facility] #[id number], 160.1, cm, 01/02/23 9:00:00 EST, Height/Length Dosing, 58.8, kg, 01/02/23 9:00:00 EST, Weight Dosing Sodium Chloride 0.9% intravenous solution, 1,000 mL, Soln-IV, IV, Once, Stop date 01/02/23 9:08:00 EST, STAT, Start date 01/02/23 9:08:00 E (more content not included)... Normal [facility] Comment on above: Result Comment: Elec tronically Signed By: Amado Rodriguez M.D.\.anita\Date and Time Signed: 01/02/23 16:52 EST ED [...] added (diluted fruit juice). ? Eat bland, bdec-zq-kxkfca foods in small amounts as you are able. These foods include bananas, applesauce, rice, lean meats, toast, and crackers. ? Avoid fluids that contain a lot of sugar or caffeine, such as energy drinks, sports drinks, and soda. ? Avoid alcohol. ? Avoid spicy or fatty foods. General instructions ? Take rqdm-ycj-ihxnftb and prescription medicines only as told by your health care provider. ? Drink enough fluid to keep your urine pale yellow. ? Wash your hands often using soap and water for at least 20 seconds. If soap and water are not available, use hand consumer recruiter. ? Make sure that everyone in your [...] and drinking to prevent dehydration. ? Take rydn-ykl-jqsywel and prescription medicines only as told by [...] provider. Document Revised: 08/16/2021 Document Reviewed: 08/16/2021 [employer] Patient Education ? 2022 [employer]. Abdominal Pain, Adult Pain in the abdomen [...] these instructions at home: Medicines ? Take bomx-wng-vnrphxn and prescription medicines only as told by your health care provider. ? Do not take a laxative unless told by your health care provider. General instructions ? Watch your condition for any changes. ? Drink enough fluid to keep your urine pale yellow. ? Keep all follow-up visits as told by your h (more content not included)... Normal [facility] ED Patient Summaryon 023 ED Patient Summary [address] [address] Patient Discharge Instructions Person Information Name: RUTH CORDERO Age: 27 Years Arrival Date: 01/02/2023 08:53:06 Discharge Diagnosis: 1:Abdominal pain; 2:Vomiting and diarrhea; 3:Intrauterine ; Diarrhea, unspecified Primary Care Physician: NONE, XXXX Provider Information Primary Provider: Amado Rodriguez M.D. Advanced Funnel Setter:None The exam and treatment you received in the Emergency Department were for an urgent problem and are not intended as complete care. It is important that you follow up with a doctor, nurse practitioner, or physician?s activity assistant for ongoing care. If your symptoms become worse or you do not improve as expected and you are unable to reach your usual health care provider, you should return to the Emergency Department. We are available 24 hours a day. CORDERORUTH has been given the following list of patient education materials, prescriptions and follow-up instructions: Follow-up Instructions: With: Address: When: Ginny REBOLLEDO [facility], [address] [place] [address] [address] [place], [place] [id number] [facility] () In 3 days 01/05/2023 Comments: [...] opioids can be used to help relieve ntkylzcn-df-xjykvu pain and are often prescribed following a [...] your community (more content not included)... Normal [facility] HEMATOLOGYOrdered By: SYSTEM SYSTEM on 01-02-2023 [...] 283.0 E9/L Normal 150.0 - 500.0 E9/L [facility] HemeAutoSS RBC (Bld) [#/Vol] 4.1 E12/L Low 4.3 - 5.9 E12/L [facility] HemeAutoSS WBC corrected for nucl RBC Auto (Bld) [#/Vol] 13.5 E9/L High 4.0 - 11.0 E9/L [facility] HemeAutoSS Hep Func Panelon 01-02-2023 Albumin [Mass/Vol] 4.1 g/dL Normal 3.3-5.0 [facility] Comment on above: Performed By: #### 2 016410, 18177889, 7534804, 0336065, 3520610, 2292260, 20514448 ####[facility] [address] [place] [address] Albumin/Globulin (S) [Mass conc ratio] 1.2 Normal 1.1-2.2 [facility] Comment on above: Performed By: #### 2 229983, 77847028, 8046535, 6152844, 3452993, 1428122, 44666254 ####[facility] [address] [place] [address] ALP [Catalytic activity/Vol] 57 Int._Unit/L Normal 21-98 [facility] Comment on above: Performed By: #### 2 741948, 92125521, 4020350, 0893955, 7776807, 5926906, 96751052 ####[facility] [address] [place] [address] ALT No additional P-5'-P [Catalytic activity/Vol] 13 Int._Unit/L Normal 6-46 [facility] Comment on above: Performed By: #### 2 985341, 66152136, 9889599, 8677522, 4638875, 5676789, 11539177 ####[facility] [address] [place] [address] AST [Catalytic activity/Vol] 26 Int._Unit/L Normal 5-43 [facility] Comment on above: Performed By: #### 2 064596, 47048507, 3144520, 9159205, 7037222, 4996439, 09247382 ####[facility] [address] [place] [address] Bilirubin [Mass/Vol] 1.0 mg/dL Normal 0.0-1.1 [facility] Comment on above: Performed By: #### 2 178228, 61384988, 2104488, 5492173, 3926879, 8476470, 45884055 ####[facility] [address] [place] [address] Bilirubin.direct [Mass/Vol] 0.2 mg/dL Normal 0.1-0.4 [facility] Comment on above: Performed By: #### 2 455136, 48793721, 4153549, 5749616, 7642543, 6235297, 62376912 ####[place] [address] Bilirubin.indirect [Mass or moles/Vol] 0.8 mg/dL Normal 0.1-0.9 [facility] Comment on above: Performed By: #### 2 240384, 81355828, 2549639, 7565777, 4792157, 9424151, 30949137 ####[facility] [address] [place] [address] Globulin (S) [Mass/Vol] 3.5 g/dL Normal 1.4-4.0 [facility] Comment on above: Performed By: #### 2 027871, 84320239, 8665402, 1123647, 1386426, 0010078, [id number] ####[facility] [address] [place] [address] Protein [Mass/Vol] 7.6 g/dL Normal 6.0-7.8 [facility] Comment on above: Performed By: #### 2 486840, 72137802, 4029236, 1242962, 0261437, 8865374, 97004844 ####[facility] [address] [place] [address] Lipase Levelon 01-02-2023 Lipase [Catalytic activity/Vol] 79 U/L High 13-58 [facility] Comment on above: Performed By: #### 2 218466, 34755218, 0393786, 6748146, 4945218, 4530770, 17266285 ####[facility] [address] [place] [address] PT & PTTon 01-02-2023 aPTT Coag (PPP) [Time] 29.4 second(s) Normal 25.1-36.5 [facility] Comment on above: Result Comment: Para [...] the same coagulation reagent and instrumentation [place] [facility] Currently there are no coagulation studies available worldwide for children to 14 days, and no normal ranges. Heparin therapeutic range (represented by Anti-Factor Xa activity of 0.2 - 0.4 U/mL) corresponds to PTT of 56.6 - 109.0 sec. Performed By: #### 2 962210, 60193606, 9821825, 2612629, 9423656, 0050593, 44615233 ####[facility] [address] [place] [address] INR Coag (PPP) [Relative time] 1.1 {INR} Invalid Interpretation Code [facility] Comment on above: Result Comment: INR results are specifically intended to assess patients stabilized on long-term Anticoagulation therapy suggested INR?s ?Less Intensive Anticoagulation? 2.0 ? 3.0 Conventional Range 3.0 ? 4.5 Performed By: #### 2 779901, 38858953, 4691513, 6524820, 5076902, 2757145, 37785350 ####[facility] [address] [place] [address] PT Coag (PPP) [Time] 12.1 second(s) Normal 9.4-12.5 [facility] Comment on above: Result Comment: 15 [...] ranges were obtained from a study by tavo Robledo al. prepared from 1437 samples obtained at 7 different centers using the same coagulation reagent and instrumentation as [facility]. Currently there are no coagulation studies available worldwide for children to 14 days, and no normal ranges. Performed By: #### 2 070086, 50260140, 9256044, 8793972, 6684433, 5060642, 04692566 ####[facility] [address] [place] [address] UA With Cult Reflexon 2022 Bacteria LM Ql (Urine sed) TRACE Normal Trace [facility] Comment on above: Performed By: #### 1 0683740 ####[facility] [address] [place] [address] Bilirubin Ql (U) Negative Normal Negative [facility] Comment on above: Performed By: #### 1 9905965 ####[facility] [address] [place] [address] Clarity (U) SL CLOUDY Abnormal Clear [facility] Comment on above: Performed By: #### 1 6074916 ####[address] [place] [address] Color (U) YELLOW Normal Yellow [facility] Comment on above: Performed By: #### 1 7517598 ####[facility] [address] [place] [address] Epithelial cells.squamous LM.HPF (Urine sed) [#/Area] 9-10 Normal 0-2 [facility] Comment on above: Performed By: #### 1 1674078 ####[facility] [address] [place] [address] Glucose Test strip (U) [Mass/Vol] Negative Normal Negative [facility] Comment on above: Performed By: #### 1 7277066 ####[facility] [address] [place] [address] Hemoglobin Ql (U) Negative Normal Negative [facility] Comment on above: Performed By: #### 1 4091360 ####[address] [address] Ketones (U) [Mass/Vol] 2+ Abnormal Negative Fi [facility] Comment on above: Performed By: #### 1 1636929 ####[facility] [address] [place] [address] Savoy.plasma/Savoy .RBC (Bld) [Mass ratio] 0-3 Normal 0-3 [facility] Comment on above: Performed By: #### 1 4890965 ####[address] [address] Mucus Ql (Urine sed) 2+ Normal Fish [facility] Comment on above: Performed By: #### 1 3926635 ####[facility] [address] [place] [address] Nitrite Ql (U) Negative Normal Negative [facility] Comment on above: Performed By: #### 1 5200963 ####[address] [place] [address] pH (U) 8.5 [pH] Invalid Interpretation Code 5.0-9.0 [facility] Comment on above: Performed By: #### 1 8607749 ####[place] [address] Protein (U) [Mass/Vol] Negative Normal Negative [facility] Comment on above: Performed By: #### 1 8499065 ####[address] Specific gravity (U) [Rel density] 1.015 Invalid Interpretation Code 1.005-1.030 [facility] Comment on above: Performed By: #### 1 8262114 ####[place] Spermatozoa LM Ql (Urine sed) Present Normal [facility] Comment on above: Performed By: #### 1 4633884 ####[place] [address] Type of Urine collection method Clean Catch Normal [facility] Comment on above: Performed By: #### 1 2244537 ####[place] [address] Urobilinogen Qn (U) 0.2 {Hima'U}/dL Normal 0.0-1.0 [facility] Comment on above: Performed By: #### 1 4792473 ####[place] [address] WBC Auto Ql (U) Negative Normal Negative [facility] Comment on above: Performed By: #### 1 3358761 ####[place] [address] WBC LM.HPF (Urine sed) [#/Area] 0-5 Normal 0-5 [facility] Comment on above: Performed By: #### 1 2537303 ####[place] [address] URINALYSISOrdered By: Cata Wang on 01-02-2023 Bacteria LM Ql (Urine sed) Trace /HPF Normal Trace/HPF [facility] UA Auto SS Bilirubin Ql (U) Negative (01/02/23 10:40 AM) Normal Negative [facility] UA Auto SS Clarity (U) Slightly Cloudy [...] Interpretation Code Negative [facility] UA Auto SS Savoy.plasma/Savoy .RBC (Bld) [Mass ratio] 0-3 /HPF Normal [...] (Urine sed) Present (01/02/23 10:40 AM) Normal [facility] UA Auto SS UA Spec Desc Clean Catch (01/02/23 10:40 AM) Normal [facility] UA Auto SS Urobilinogen Qn (U) 0.8877485 {Hima'U}/dL Normal 0.0 - 1.0 EU/dL [facility] UA Auto SS WBC Auto Ql (U) Negative (01/02/23 10:40 AM) Normal Negative [facility] UA Auto SS WBC LM.HPF (Urine sed) [#/Area] 0-5 /HPF Normal 0-5/HPF [facility] UA Auto SS US Gallbladderon 01-02-2023 US [...] Transcribed by: JUAN FRANCISCO Technologist: RAMÓN Viz[address]ra [facility] US 1st Trimesteron 01-02-2023 US 1st Trimester [...] corresponding gestational age +/- 1 week are: [place] Rump Length: 0.5 cm Composite Ultrasound Age: [...] History 3 Para 2 SAB 1 Normal [facility] US Transvaginalon 01-02-2023 US Transvaginal Exam Date/Time: 01/02/2023 11:37 EST Reason for Exam: pain Report Refer to concurrent ultrasound first trimester dictation. Ordering Provider: Amado Rodriguez FINAL REPORT Dictated: 01/02/2023 11:48 am Jos Lozano MD Signed (Electronic Signature): 01/02/2023 11:48 am Signed by: Jos Lozano MD Transcribed by: JUAN FRANCISCO Technologist: RAMÓN Normal [facility] eGFRon 01-02-2023 GFR/1.73 sq M.predicted among non-blacks MDRD (S/P/Bld) [Vol rate/Area] 133 mL/min/1.73 m2 Normal >=59 [facility] Comment on above: Order Comment: Order added by Discern Expert. Result Comment: Media Production Manager saranya kidney disease could be indicated at eGFR's of less than 60 mL/min/1.73m2. Kidney failure is indicated at less than 15 mL/min/1.73m2. Performed By: #### 2 329923, 43117817, 1088581, 8772600, 3130647, 0882008, 40230868 ####[facility] [address] [place] [address] Coding Summary.on 06-23-2022 Coding Summary. CD:[id number] Ww+PGhlYWQ+VL9ORRMvC 88yiSQxhG5dG6KZAPpUL ywgQVBQTElOSyIgbmFtZ A8eoPDrMLUa IC8+UM3xARVxKkbrgDHo d4E3mFY3I14dhz4bHGjc sBL9LQAdEkYubgoqp1pd vUc0HKzoEcwzKoAb AJYoiA11MYT0dR68Pa76 hZKqeMHoj9sanYp0PyBv GSOeJAF2lEuiGCivl5Vn HLGaF19kkDYjq4G1 IGNvbGxhcHNlOyBlbXB0 nL5gYCremzjjn5ardmkn Oou3rd41mYMzz5B7mQY5 U7SjqdP3ZSLaaRMi PjplxLXWmK4ojtoeq2rs qtopFnBqSBFvIYu0VFf6 YEWsqBvaJrMhDA88FIU7 HRVlqyEqS5IlKAJv aUhmMvM0u7Q1Eb6SZ2DF AhgcL2AWDRMHBPktpRB+ UQ36kj06X7XyJmauOxg3 ZFUyYFY9oGO1jV9x FLBnULqij4U0yRE2J3Gg ixDoch2om2hlBPPzFDyb J21cbYAya2C8UKYczNF9 IAOqjJkrYzGhvZ04 Oyc+SNPlsNwyn3WdBukn z2btl3fxhEw1XssxOYUm wnHwnEljVOX5w6AbMm6d LBFnlGA2fPX0xV4p PjQoZfZ9WJemT697ZrJf pUMbXjlfX54xT0OgzFV+ BQMwBrd7AJOcnFszTI1w C8BzHVNcxijrcPQi tBbvRT0jQIEcfgsiWIZd tX1iVRKxM2w1QeCeLbV8 XKsfC2GmSRBlcvlwSu74 pU8xJlVuPaZ1KEpb M5MbgtE4MSSheKFsWFkb BDK7I81ed7R8MPDpGOUb BXW9bVK1kG5lmNzitjvh bGVmdDsgdmVydGlj BPdoIFueF445AYBtiKyb PkNvZGluZyBEYXRlOiAg MDUvMDEvMjAyMzwvdGQ+ AYAhXQX6iVycSXFy eGJbSDavOj0aeVvxiQmn HR2uILWkrrktZGTjyK3i WCAwaJUvqYduOI5hDHFk lqxhd180AvAbUFJ5 JRGuoKUdP3KvjT5kZyIh ICPkXCGlM7VuxXGnIEzd X777SAnnNdB6PXNhlfHz Z2RuTBPmiTskLdH5 o3Q6Yi2Cp6VoclnxA5Zs iKXwUzRcNdqeTRj6P3Bs PjwvdHI+DC65RJPbMA95 LAr0CHX3rQryODgg LERfX6AmkE1mMdAbCTZf ZGRkOyc+PHRhYmxlIHdp ZHRoPScxMDAlJyBzdHls BQ0fWa4wXEDdOLUv dUrgcHBwCvCic9keWLSa QYayYB1lhIgmB4CocMW5 IQCyd2c8Bh98U28dH9Wz dXA+KUCbzEV0wZF9 aK6pMwRaYaU9LLraA596 NkPofKAeBcnki3zic7hz vKe0YzM9HSIkxeDddKno XMC3u7UuAn32T76k IHdpZHRoPSIxNSUiIHZh eNjecl1rzH6vIq5+PGNv yEI0fQZ5bV3hIbYaBeA1 FCpmD583ZjKpoQSy Qjnyk9pti6vdnRq7WzHw KOUaubYukByaGYD5b7Ks Dn65B0RguDixb6QvNgt9 oo04oONov7K7xSC7 B4TuAFSsxuniaNRflMvq LF1oGVSgskvvDBEzuI4f VLDoA4z4QwBhEdP9THhh E5ZmczS0FCQweZCc TDJmqGKOlM7aqluaw2wp suyqNbPzSYFjCEe1NHo3 PIRscTrwYuUkSZD0MvK1 GXC8gSZdzW5ykZtm smlyzE8nZzr+MML6qGYx zDVFHG4tIrhucUB+PHRk HCA3iJzeSHjkENCwxH8s SUHwW9r0FgZzArD7 WGbsA3KbvzX9EKCylBVi TELkiGBOgV9txutyt0sb mofaJsArGRJgCJg3VCn2 LWFsaWduOiBsZWZ0 GgH0MTC9kIVmqA5zgVro mqcvcG7kWze+QmlydGgg RCA2CVs0B5CvMks1AXSa pGgaOA5ibGBbCCdb Wj7nwPwbnFkjXT9aRRVm ymajw295WcAab3pzMSDd sVPjVFljGNG4Y43te2R1 OKJiUSUlOPG1oUI1 nK0hfJhmrfhicIXazDtn uvNamTmjRUzbSKamT801 TTFqcJcpXuIuEHd6A8Ya Rcs0JMXvdXdsHD6y oLYhSJiiHc1fuWctfUvi RV9qJDBzqtreo648FhGn g8oaRGJfcOTiSWqwVJT7 E78cs2G2LOWcCIJl AMU1rIK0uA9peVfvquvo bGVmdDsgdmVydGljYWwt OAwuR593SXSxzZmvEyOh lEs1L6NeQnp9NRPs yBesIK9tyWBgUUsuSz3a bLhraDliIE1eSDZfcwtg v778StSrq0jcHHVhiEUr OYzqLZO0A01sw3H9 CIBzVRYgNBE4oUL8kL6p bGlnbjogbGVmdDsgdmVy cZfbROnoKAzvT034LOOl cDsnPlBhdGllbnQg EWxmGIi4D4XbCrebpNM+ BH98TENlIS26zDQsiKZh g9zmmSh8HuCsKOTePAA7 cXtdEJxlh4UfCNJe G21dlEMmz2Y7GOUqhEwa cBJnPuVveAT8yU8aINck jrfkc4mbrqirBjxhr8ph bb63lX40C74eLBkx ZHRoPSIzMCUiIHZhbGln fx6gyD2wJv2+PGNvbCB3 iEU2fA8iXFWvEgI5PNhj I012QuQnkSKoDbkz d5aqv8eadNh0LlY7YPXk jzYqjVhaOKV3h4WiHk30 T74oAQrnKSQxXPYfEYIu QKOxoTusez4qbT1e Ii8+VLDklQC9bNB7qF4j NqXxDkM1OJjpO456LxTf hOSeZkxuK43rU4DefVD+ PPOnNni3YVAlwSng EY5ogNUwJEndPy8wQMI5 UgPzRyPpMEerK2AwOAPw avzickfrjPZ0JUKfHBAx oQ88Ee3oqQguWAHb ySRLyC3crkxuy2dxndaw TyXqGJHxYTd1TDh7NCEf dJbvIzPmUHC2IfS9GRK0 nCWrgC0sqDwemszx aL6lE5YoZPVzhhnmNs67 eD7lHeIaEbH3LZnzOqj+ O3GWQWFOIVNQVTTXLOAF BU4CNfO1Y0OoLwo7 AQRcxWqbMJ6kgYDgTWqh Sd4cmPiyxTkfVX4tYKEp vzosYLDjaM8qFJDheCXz gAvaRY0cKRRtylkx u097KbOoJCD1QNFsgTKg D3DcbS5hGjFwOINjHMLp H5FwhXUmTHujW973LTez KaN8WJBgwuHoB9Uu SOEhpTdsKeN5i2D3Rt6p Dw1wFO9fZAb0RM14BG68 aCUnb5K3hJM1X9QnDYLv qorgjtozlAN0OWTc VQLyxS75hNMxIIylZd1w x8X9u651ZKQfDJXqlL54 Nb6lfFzcRCIfwJOYtA6y puszb4evbnjlMzBz HCExFPh8POg8XZYxgCdz MaRlBRB9EgS8URP0vFDw eH5mgEodvhmcnT9pEeq+ DlSvHPPuhvB3S0Cn Cah4WDEpjPawKF4pjCWd ZUghUj7riStjbRgqZF7s XQEshmaxIVUluO4nAVDd eDYxnOrfWR5dKXVj wmxvn741RhYwREX2YTXd nAPbW9QlaE2yTlFsSGJz JEMcL2EkfSJqFCnqH453 TAwfBtX0MRTvmyBh F4KjHJKyoUhfYpM7v7T0 Rj2ONJ4akZI1J0MdNim6 IVCthLomZE9snAFxLWcq Mz4xmFpnvYheKG1h HBOgkheeISObzA1zKDUf nPDfjQxoUI1dJWZvxtlz c496WbVmRIJ0YKMhxNCr L5CkpG4lAtBrQPYp ZFEoR3LwlFWsBYqmS691 QRhuMvT4GNNaakTbQ3Lu FJLhyRsmQkC3u6V8Dz7L fPYkM4DbW8f2S1Ln PjwvdHI+WF42QXDuZT45 sVHxyXYqa1ytrVd6BzRq QBTdBOV4uJjjACeft8Ds FZJtM11agXEtc7T4 IGNvbGxhcHNlOyBlbXB0 tO2nZDyltwyiu1mmackp Wtavl5tkvo39zZ96Q92a IHdpZHRoPSIzMCUi KRLjsHpqkn6rnL5bPw1+ MPQunFA1wYV5rU2tUbLb FvW8VDrgE779KhCjcLQa Aucwb4rfo0qwmJu6 IjIwJSIgdmFsaWduPSJ0 b7AtVo23S61cBHmpYGLl QWUhATEpXEIxdTftyd4z sI8bQc0+ZM1dg0qh ms70aN68yBV+PHRkIHN0 dQnyYYrsUUOxeI4dGZrq JpB7RPJqLhYasM09wPWs EIqzZo7kuCmanIjy UV7dHUNizmsoa424WvLq z9lvIBOfvYRfCHuxLQB9 I18tw8F6OPWqQMSyWKN6 vWD0fB7yeUsunfyj bGVmdDsgdmVydGljYWwt NTxeW559LURoyCvjDfSd mNVoU4zlbeFWZV6jIeqh dGQ+WAIzZSW2fNzs NUwwEWJhcQ2pKPSpD0m4 DpQgAuT9CVsyR1CsosH9 UDBfsRPuPRHwpYBDcF7k rzghf0grseyeSzMg PYDiWMt2EGt3MFZccBiq NjIbJNE2OyZ3OKR4kLZx rD5bcYcetuvhhE5gSpr+ RklOOjwvdGQ+PHRk VRK8wFouYTeuCOHmtZ2d BCNnH7x5EmLjNuF8PBpk F9NrwuC4VRVjzPWyTHFb cGLUzN8ngolak3dw tdivDqKnJWWiZDk6PMh5 JNLgcHrxZzOfJRE7QqQ2 BXM5lBTecR8mhFhjpoxm yA9tDln+TVJOOjwv dGQ+BIHkMJX3tJkgPBcx WROwqG0lOMMcP5b7HsPe YdH3TYmuE7JfbxP9WEPz bOIjPKJymIBLnF4i kzund7chtpdhRhPdUHXy AAj4HWl0ZPDfgCjqBhXd XFH2QsK3WMN5aOJzlV6j eUudesjblR8yCxf+ XHC2BPC8LC91YP66G0Xv PjwvdGFibGU+PHRhYmxl IHdpZHRoPScxMDAlJyBz vQrcOE8vIf0cVERh LWNvbGxh (more content not included)... Normal [facility] Auto Diffon 06-21-2022 Basophils/100 WBC (Bld) 0.7 % Normal 0.0-2.0 [facility] Comment on above: Order Comment: Order Added by Discern Expert. Performed By: #### 2 561430, 6174228, 5084334, 0017318, 50920095, 89773917, 2767733 ####[address] [address] Basophils/Leukocytes Auto (Bld) [Pure # fraction] 0.2 E9/L Normal 0.0-0.2 [facility] Comment on above: Order Comment: Order Added by Discern Expert. Performed By: #### 2 620691, 0749253, 0762490, 1594320, 03929457, 93064618, 4242569 ####[address] [address] Eosinophils/100 WBC (Bld) 0.9 % Normal 0.0-8.0 [facility] Comment on above: Order Comment: Order Added by Discern Expert. Performed By: #### 2 045768, 1794936, 5754338, 4342821, 12297751, 72190240, 6649628 ####[address] [address] Eosinophils/Leukocytes Auto (Bld) [Pure # fraction] 0.2 E9/L Normal 0.0-0.5 [facility] Comment on above: Order Comment: Order Added by Discern Expert. Performed By: #### 2 211334, 9689108, 5412966, 0105801, 12338007, 55629209, 9714663 ####[address] [address] Lymphocytes/100 WBC (Bld) 19.5 % Normal 14.0-50.0 [facility] Comment on above: Order Comment: Order Added by Discern Expert. Performed By: #### 2 330765, 2119031, 4013127, 1099259, 54295396, 17130113, 9793702 ####[address] [address] Lymphocytes/Leukocytes Auto (Bld) [Pure # fraction] 4.2 E9/L High 1.0-4.0 [facility] Comment on above: Order Comment: Order Added by Discern Expert. Performed By: #### 2 662433, 2943294, 1802836, 5294262, 97062482, 75255124, 0733644 ####[address] [address] Monocytes/100 WBC (Bld) 4.9 % Normal 4.0-14.0 [facility] Comment on above: Order Comment: Order Added by Discern Expert. Performed By: #### 2 515977, 8050371, 5105923, 9599544, 65851310, 04646142, 7919032 ####[address] [address] Monocytes/Leukocytes Auto (Bld) [Pure # fraction] 1.1 E9/L High 0.2-1.0 [facility] Comment on above: Order Comment: Order Added by Discern Expert. Performed By: #### 2 772844, 4543296, 7033329, 2959390, 61151794, 54999143, 5288823 ####[address] [address] Neutrophils/100 WBC (Bld) 74.0 % Normal 36.0-75.0 [facility] Comment on above: Order Comment: Order Added by Discern Expert. Performed By: #### 2 400412, 1503710, 6762182, 6222046, 41761868, 09556783, 1905221 ####[facility] [address] [place] [address] Neutrophils/Leukocytes Auto (Bld) [Pure # fraction] 15.9 E9/L High 2.0-7.5 [facility] Comment on above: Order Comment: Order Added by Discern Expert. Performed By: #### 2 005870, 5642575, 7821590, 7018601, 75611137, 94472812, 0751652 ####[facility] [address] [place] [address] B hCG Qualon 06-21-2022 Beta hCG Ql Negative Normal [facility] Comment on above: Performed By: #### 2 345688, 5326189, 6089940, 0611115, 48334426, 43237870, 5337843 ####[facility] [address] [place] [address] BMPon 06-21-2022 Creatinine [Mass/Vol] 0.7 mg/dL Normal 0.5-1.3 [facility] Comment on above: Performed By: #### 2 393598, 2646745, 7338448, 0632446, 65532264, 24557924, 6178821 ####[facility] [address] [place] [address] Urea nitrogen [Mass/Vol] 12 mg/dL Normal 5-21 [facility] Comment on above: Performed By: #### 2 679909, 2861607, 3937738, 9475936, 23909767, 01309212, 9180073 ####[facility] [address] [place] [address] Urea nitrogen/Creatinine [Mass ratio] 17 No Units Normal 10-20 [facility] Comment on above: Performed By: #### 2 278474, 4629919, 8475711, 9086949, 56345697, 87840696, 3093056 ####[facility] [address] [place] [address] Anion gap [Moles/Vol] 12 mmol/L Normal 6-16 [facility] Comment on above: Performed By: #### 2 384225, 5767559, 3287922, 1336607, 51261642, 72405814, 7894573 ####[facility] [address] [address] Calcium [Mass/Vol] 8.8 mg/dL Low 8.9-11.1 [facility] Comment on above: Performed By: #### 2 057849, 7965980, 9605215, 0676710, 81377721, 27139967, 4708111 ####[facility] [address] [place] [address] Chloride [Moles/Vol] 105 mmol/L Normal 101-111 [facility] Comment on above: Performed By: #### 2 669913, 3477811, 3077363, 5786312, 61113198, 70212047, 2142299 ####[facility] [address] [place] [address] CO2 [Moles/Vol] 23 mmol/L Normal 21-31 [facility] Comment on above: Performed By: #### 2 396467, 3642383, 9304789, 8043902, 44753216, 53316985, 5664312 ####[facility] [address] [place] [address] Glucose [Mass/Vol] 104 mg/dL Normal 55-199 [facility] Comment on above: Result Comment: If t his glucose result represents a fasting glucose, interpretation should refer to the following reference range: 55-99 mg/dL Performed By: #### 2 848887, 7185670, 7337050, 0300393, 07889601, 42875048, 7579009 ####[facility] [address] [place] [address] Potassium [Moles/Vol] 3.4 mmol/L Low 3.5-5.3 [facility] Comment on above: Performed By: #### 2 896568, 2290750, 1502656, 6172136, 01730113, 16384989, 9340668 ####[facility] [address] [place] [address] Sodium [Moles/Vol] 137 mmol/L Normal 135-145 [facility] Comment on above: Performed By: #### 2 465359, 1834091, 4204649, 8673140, 87236406, 54959374, 7847606 ####[facility] [address] [place] [address] CBC w/ Auto Diffon 3 Erythrocyte distribution width (RBC) [Ratio] 12.3 % Normal 10.9-14.2 [facility] Comment on above: Performed By: #### 2 362123, 2204309, 6659755, 6768138, 44154766, 33412535, 0211972 ####[facility] [address] [place] [address] Hematocrit (Bld) [Volume fraction] 41.0 % Normal 34.0-46.0 [facility] Comment on above: Performed By: #### 2 607550, 7365600, 7324888, 0297411, 23599007, 32995281, 5268009 ####[facility] [address] [place] [address] Hemoglobin (Bld) [Mass/Vol] 13.4 g/dL Normal 12.0-16.0 [facility] Comment on above: Performed By: #### 2 602567, 2796988, 0150726, 6776381, 52105734, 54857749, 3337041 ####[facility] [address] [place] [address] MCH (RBC) [Entitic mass] 28.2 pg Normal 27.0-34.0 [facility] Comment on above: Performed By: #### 2 639598, 4483884, 9658531, 3796902, 09693928, 98967475, 3486331 ####[facility] [address] [place] [address] MCHC (RBC) [Mass/Vol] 32.7 g/dL Normal 31.4-36.0 [facility] Comment on above: Performed By: #### 2 969077, 4990313, 9250987, 2406740, 50253930, 89088295, 0738895 ####[address] [address] MCV (RBC) [Entitic vol] 86.3 fL Normal 80.0-100.0 [facility] Comment on above: Performed By: #### 2 944589, 3904764, 3664391, 2048312, 72431436, 19017557, 3123150 ####[facility] [address] [place] [address] Platelet mean volume (Bld) [Entitic vol] 7.2 fL Normal 6.4-10.8 [facility] Comment on above: Performed By: #### 2 995090, 3458494, 5579062, 8471448, 02567203, 64484871, 8822789 ####[address] [address] Platelets (Bld) [#/Vol] 414.0 E9/L Normal 150.0-500.0 [facility] Comment on above: Performed By: #### 2 098633, 6547129, 3662075, 7468485, 56619228, 73552494, 8792365 ####[address] [address] RBC (Bld) [#/Vol] 4.8 E12/L Normal 4.3-5.9 [facility] Comment on above: Performed By: #### 2 062827, 6882746, 6463209, 9008566, 27630142, 00035461, 3442137 ####[address] [address] WBC corrected for nucl RBC Auto (Bld) [#/Vol] 21.6 E9/L High 4.0-11.0 [facility] Comment on above: Result Comment: Slid e reviewed by AD. Performed By: #### 2 659889, 9517899, 5138639, 1797793, 49015683, 71955828, 9487100 ####[facility] [address] [place] [address] CT Abdomen/Pelvis w/ Contras ton 06-21-2022 CT [...] Signed by: Brett Colon MD Transcribed by: DP Technologist: DPR Technical Comments GFR (mL/min/1/73m2) age Contrast: Isovue 300 Contrast amount in ml's: 100 Normal [facility] Consent for Treatmenton 05-25 Consent for Treatment [id number] #1.00CD:127 Normal [facility] Discharge Instructionson Discharge Instructions [id number] 0#1.00CD:127 Normal [facility] ED Clinical Summaryon 2022 ED Clinical Summary [address] [address] ED Clinical Summary Person Information Name: RUTH CORDERO/Eugenie Age: 27 Years : 1995 Sex: Female Language: Palauan PCP: Keith GARCIA DO Marital Status: Single [...] 06/21/2022 05:06:52 06/21/2022 05:06:52 06/21/2022 05:06:52 ADDRESS: [address] [facility] [id number] PHYS DOC NOTES: MEDICAL INFORMATION: Prescriptions Given: New Medications [id number], [address] [place] [id number], [phone] naproxen (naproxen 500 mg oral enteric coated tablet) 1 Tablets By Mouth 2 times a day as needed Pain. Refills: 0. ondansetron (Zofran ODT 4 mg Tab-Dis) 1 Tablets By Mouth every 8 hours as needed Nausea/Vomiting. Refills: 0. PATIENT EDUCATION INFORMATION: Instructions: Abdominal Pain, Adult Follow up: With: Address: When: Keith GARCIA [address] [place], [place] [id number] Business (1) In 3 days 06/24/2022 DIAGNOSIS: Abdominal pain, acute Normal [facility] ED Note-Physicianon 06-22-19 ED Note-Physician Basic [...] and Complexity of Problems Differential Diagnosis: [] [facility] Data External documents reviewed: N/A [...] Pain, # 14 tab(s), Refills(s) 0, Pharmacy: [id number], 160, cm, 06/20/22 23:30:00 EDT, Height/Length [...] Nausea/Vomiting, # 16 tab(s), Refills(s) 0, Pharmacy: [facility] #[id number], 160, cm, 06/20/22 23:30:00 EDT, Height/Length [...] Medications Administered (more content not included)... Normal [facility] Comment on above: Result Comment: Elec [...] these instructions at home: Medicines ? Take xhnt-prt-lcbkzvx and prescription medicines only as told by [...] your condition for any changes. ? Take tgea-akh-wylleem and prescription medicines only as told by [...] provider. Document Revised: 03/30/2020 Document Reviewed: 06/20/2019 [employer] Patient Education ? 2022 [employer]. Normal [facility] ED Patient Summaryon 023 ED Patient Summary [address] [address] Patient Discharge Instructions Person Information Name: RUTH CORDERO Age: 27 Years Arrival Date: 06/20/2022 23:19:15 Discharge Diagnosis: Abdominal pain, acute Primary Care Physician: Keith GARCIA DO Provider Information Primary Provider: Ritesh Pascal DO Advanced Funnel Setter:None The exam and treatment you received in the Emergency Department were for an urgent problem and are not intended as complete care. It is important that you follow up with a doctor, nurse practitioner, or physician?s activity assistant for ongoing care. If your symptoms become worse or you do not improve as expected and you are unable to reach your usual health care provider, you should return to the Emergency Department. We are available 24 hours a day. RUTH CORDERO has been given the following list of patient education materials, prescriptions and follow-up instructions: Follow-up Instructions: With: Address: When: Keith GARCIA [address] [facility] [address] [place] [id number] Business (1) In 3 days 06/24/2022 In the event that this physician does not participate in your insurance network, please consult with your insurance company to find a nearby participating provider. Patient Education Materials: Abdominal Pain, Adult A MESSAGE TO ALL PATIENTS REGARDING OPIOIDS PRESCRIPTION OPIOIDS: WHAT YOU NEED TO KNOW Prescription opioids can be used to help relieve qhlgtbka-tm-gneurg pain and are often prescribed following a [...] be struggling with addiction, tell your health vp care management and ask for guidance or call [facility]?S National Helpline at 4-948-947-FHSZ. r Source: [facility] (more content not included)... Normal [facility] Hep Func Panelon 06-21-2022 Bilirubin.indirect [Mass or moles/Vol] UTC Abnormal 0.1-0.9 [facility] Comment on above: Result Comment: Resu lt verified by Discern Rule. Performed result UTC (Unable to Calculate) was sent as an Alpha code due the inability to calculate a valid numeric value. Performed By: #### 2 311219, 1382130, 3210088, 7330478, 12463063, 04568707, 2270729 ####[facility] [address] [place] [address] Albumin [Mass/Vol] 4.1 g/dL Normal 3.3-5.0 [facility] Comment on above: Performed By: #### 2 696159, 5771834, 2884754, 5875918, 38520105, 05732870, 1346597 ####[facility] [address] [place] [address] Albumin/Globulin (S) [Mass conc ratio] 1.1 Normal 1.1-2.2 [facility] Comment on above: Performed By: #### 2 224987, 9743508, 5832593, 8177044, 82546488, 10142380, 9283239 ####[facility] [address] [place] [address] ALP [Catalytic activity/Vol] 86 Int._Unit/L Normal 21-98 [facility] Comment on above: Performed By: #### 2 098224, 3044535, 7346835, 6068555, 64880181, 64249460, 4270717 ####[facility] [address] [place] [address] ALT No additional P-5'-P [Catalytic activity/Vol] 16 Int._Unit/L Normal 6-46 [facility] Comment on above: Performed By: #### 2 027743, 2964620, 0758258, 5679468, 92568805, 21105460, 2231769 ####[address] [address] AST [Catalytic activity/Vol] 22 Int._Unit/L Normal 5-43 [facility] Comment on above: Performed By: #### 2 509942, 4305564, 1552131, 1660543, 08764424, 42770520, 1990268 ####[address] [address] Bilirubin [Mass/Vol] 0.5 mg/dL Normal 0.0-1.1 [facility] Comment on above: Performed By: #### 2 266349, 6531123, 7749918, 5191780, 08710191, 07669454, 0269656 ####[address] [place] [address] Globulin (S) [Mass/Vol] 3.6 g/dL Normal 1.4-4.0 [facility] Comment on above: Performed By: #### 2 561746, 0978343, 7310671, 6079122, 66362855, 34888925, 3886822 ####[address] [place] [address] Protein [Mass/Vol] 7.7 g/dL Normal 6.0-7.8 [facility] Comment on above: Performed By: #### 2 104535, 8362667, 9141711, 6769292, 86460919, 56840357, 7878505 ####[address] [place] [address] Bilirubin.direct [Mass/Vol] mg/dL Normal 0.1-0.4 [facility] Comment on above: Performed By: #### 2 878520, 9201571, 8948501, 6835996, 13605276, 78296631, 9403869 ####[address] [address] Lipase Levelon 06-21-2022 Lipase [Catalytic activity/Vol] 32 U/L Normal 13-58 [facility] Comment on above: Performed By: #### 2 934958, 4697107, 2579316, 4870223, 24716603, 16678676, 6451408 ####[facility] [address] [place] [address] RAD - Preliminary Cat Scan R eporton 06-21-2022 RAD - Preliminary Cat Scan Report [id number]:127 Normal [facility] RAD - Preliminary Cat Scan Report [id number]#[id number]:127 Normal [facility] UA With Cult Reflexon 2022 Bilirubin Ql (U) Negative Normal Negative [facility] Comment on above: Performed By: #### 1 [id number] ####[address] [address] Clarity (U) CLEAR Normal Clear [facility] Comment on above: Performed By: #### 1 8884215 ####[address] [address] Color (U) STRAW Invalid Interpretation Code [facility] Comment on above: Performed By: #### 1 [id number] ####[facility] [address] [place] [address] Epithelial cells.squamous LM.HPF (Urine sed) [#/Area] 0-2 Normal 0-2 [facility] Comment on above: Performed By: #### 1 9310287 ####[facility] [address] [place] [address] Glucose Test strip (U) [Mass/Vol] Negative Normal Negative [facility] Comment on above: Performed By: #### 1 [id number] ####[facility] [address] [place] [address] Hemoglobin Ql (U) TRACE Abnormal Negative [facility] Comment on above: Performed By: #### 1 7746615 ####[address] [address] Ketones (U) [Mass/Vol] TRACE Invalid Interpretation Code Negative [facility] Comment on above: Performed By: #### 1 1336979 ####[facility] [address] [place] [address] Savoy.plasma/Savoy .RBC (Bld) [Mass ratio] 0-3 Normal 0-3 [facility] Comment on above: Performed By: #### 1 8225560 ####[address] [place] [address] Nitrite Ql (U) Negative Normal Negative [facility] Comment on above: Performed By: #### 1 4320244 ####[facility] [address] [place] [address] pH (U) 8.0 [pH] Invalid Interpretation Code 5.0-9.0 [facility] Comment on above: Performed By: #### 1 8662119 ####[address] [address] Protein (U) [Mass/Vol] Negative Normal Negative [facility] Comment on above: Performed By: #### 1 2818174 ####[facility] [address] [place] [address] Specific gravity (U) [Rel density] 1.010 Invalid Interpretation Code 1.005-1.030 [facility] Comment on above: Performed By: #### 1 6969381 ####[place] [address] Type of Urine collection method Clean Catch Normal [facility] Comment on above: Performed By: #### 1 5915757 ####[place] [address] Urobilinogen Qn (U) 0.2 {Hima'U}/dL Normal 0.0-1.0 [facility] Comment on above: Performed By: #### 1 4042429 ####[place] [address] WBC Auto Ql (U) Negative Normal Negative [facility] Comment on above: Performed By: #### 1 2223079 ####[place] [address] WBC LM.HPF (Urine sed) [#/Area] 0-5 Normal 0-5 [facility] Comment on above: Performed By: #### 1 8119921 ####[place] [address] URINALYSISOrdered By: Tom Jon on 06-21-2022 Bilirubin Ql (U) Negative (06/21/22 1:12 AM) Normal Negative [facility] [place] Auto SS Clarity (U) Clear (06/21/22 1:12 AM) Normal Clear [facility] UA Auto SS Color (U) STRAW Invalid Interpretation Code [facility] UA Auto SS Epithelial cells.squamous LM.HPF (Urine sed) [#/Area] 0-2 /HPF Normal 0-2/HPF [facility] Aut o SS Glucose Test strip (U) [Mass/Vol] Negative (06/21/22 1:12 AM) Normal Negative [facility] Auto SS Hemoglobin Ql (U) Trace *ABN* (06/21/22 1:12 AM) Invalid Interpretation Code Negative [facility] Auto SS Ketones (U) [Mass/Vol] Trace *NA* (06/21/22 1:12 AM) Invalid Interpretation Code Negative [facility] UA Auto SS Savoy.plasma/Savoy .RBC (Bld) [Mass ratio] 0-3 /HPF Normal [...] [facility] UA Auto SS Urobilinogen Qn (U) 0.3189492 {Hima'U}/dL Normal 0.0 - 1.0 EU/dL [facility] [...] Transabdominal Ultrasound Performed Uterus Position Anteverted Normal [facility] eGFRon 06-21-2022 GFR/1.73 sq M.predicted among non-blacks MDRD (S/P/Bld) [Vol rate/Area] 123 mL/min/1.73 m2 Normal >=59 [facility] Comment on above: Order Comment: Order added by Discern Expert. Result Comment: Media Production Manager saranya kidney disease could be indicated at eGFR's of less than 60 mL/min/1.73m2. Kidney failure is indicated at less than 15 mL/min/1.73m2. Performed By: #### 2 988070, 8604321, 7321224, 0263602, 43939158, 44740225, 2026036 ####[facility] [address] [place] [address] CHEMISTRYOrdered By: SYSTEM SYSTEM on 06-20-2022 Albumin [...] mEq/L F C Remisol AST [Catalytic activity/Vol] 22 [iU]/d Normal 5 - 43 Int._Unit/L [facility] Remisol Bilirubin [Mass/Vol] 0.5 mg/dL Normal 0.0 - 1 .1 mg/dL [facility] Remisol Bilirubin.direct [Mass/Vol] mg/dL Normal 0.1 - 0.4 mg/dL [facility]isol Bilirubin.indirect [Mass or moles/Vol] Unable to Calculate mg/dL Invalid Interpretation Code 0.1 - 0.9 mg/dL [facility] Calcium [Mass/Vol] 8.8 mg/dL Low 8.9 - 11. 1 mg/dL [facility] Chloride [Moles/Vol] 105 mmol/L Normal 101 - 1 11 mmol/L [facility] CO2 [Moles/Vol] 23 mmol/L Normal 21 - 31 mmol/L [facility] Creatinine [Mass/Vol] 0.7 mg/dL Normal 0.5 - 1.3 mg/dL [facility] GFR/1.73 sq M.predicted among non-blacks MDRD (S/P/Bld) [Vol rate/Area] 123 mL/min/1.73 m2 Normal >=59mL/min/1 .73 m2 [facility] Chem S Globulin (S) [Mass/Vol] 3.6 g/dL Normal 1.4 - 4.0 gm/dL [facility] Glucose [Mass/Vol] 104 mg/dL Normal 55 - 199 mg/dL [facility] Lipase [Catalytic activity/Vol] 32 U/L Normal 13 - 58 unit/L [facility] Potassium [Moles/Vol] 3.4 mmol/L Low 3.5 - 5.3 mmol/L [facility] Protein [Mass/Vol] 7.7 g/dL Normal 6.0 - 7.8 gm/dL [facility] Sodium [Moles/Vol] 137 mmol/L Normal 135 - 145 mmol/L [facility] Urea nitrogen [Mass/Vol] 12 mg/dL Normal 5 - 21 mg/dL [facility] Urea nitrogen/Creatinine [Mass ratio] 17 mg/mg [...] hCG Ql Negative (06/20/22 11:40 PM) Normal [facility] CANNABINOID (THC) CONFIRMATI ON, URINEon 11-19-2021 Cannabinoid Positive Abnormal [facility] Comment on above: Performed By: #### T HCCONF #### [facility] [address] [place] [address] Dr. Nannette Baker Carboxy THC GC/MS Conf 629 ng/mL Normal Cutoff=10 Th e [facility] Comment on above: Performed By: #### T HCCONF #### [facility] [address] [place] [address] Dr. Nannette Baker CBC AUTO DIFFon 11-13-2021 BASO # 0.1 103/ul Normal 0.0-0.1 [facility] Comment on above: Performed By: #### C BC #### [facility] [address] [place] [address] Dr. Nannette Baker Basophils/100 WBC (Bld) 0.5 % Normal 0.2-2.0 [facility] Comment on above: Performed By: #### C BC #### [facility] [address] [place] [address] Dr. Nannette Baker EO # 0.2 103/ul Normal 0.0-0.7 [facility] Comment on above: Performed By: #### C BC #### [facility] [address] [place] [address] Dr. Nannette Baker Eosinophils/100 WBC (Bld) 1.2 % Normal 0.9-7.0 [facility] Comment on above: Performed By: #### C BC #### [facility] [address] [place] [address] Dr. Nannette Baker Erythrocyte distribution width (RBC) [Ratio] 12.2 % Normal 11.0-15.0 [facility] Comment on above: Performed By: #### C BC #### [facility] [address] [place] [address] Dr. Nannette Baker Hematocrit (Bld) [Volume fraction] 33.4 % Critically low 36.0-48.0 [facility] Comment on above: Performed By: #### C BC #### [facility] [address] [place] [address] Dr. Nannette Baker Hemoglobin (Bld) [Mass/Vol] 11.5 g/dL Critically low 12.0-16.0 [facility] Comment on above: Performed By: #### C BC #### [facility] [address] [place] [address] Dr. Nannette Baker IG # 0.06 10e3/ul Critically high 0.00-0.03 [facility] Comment on above: Performed By: #### C BC #### [facility] [address] [place] [address] Dr. Nannette Baker IG % 0.5 % Normal 0.0-0.5 [facility] Comment on above: Performed By: #### C BC #### [facility] [address] [place] [address] Dr. Nannette Baker LYMPH # 2.3 103/ul Normal 1.2-3.8 [facility] Comment on above: Performed By: #### C BC #### [facility] [address] [place] [address] Dr. Nannette Baker Lymphocytes/100 WBC (Bld) 17.5 % Critically low 20.5-60.0 [facility] Comment on above: Performed By: #### C BC #### [facility] [address] [place] [address] Dr. Nannette Baker MANUAL DIFF REQ NO Normal [facility] Comment on above: Performed By: #### C BC #### [facility] [address] [place] [address] Dr. Nannette Baker MCH (RBC) [Entitic mass] 31.2 pg Normal 26.7-34.0 [facility] Comment on above: Performed By: #### C BC #### [facility] [address] [place] [address] Dr. Nannette Baker MCHC (RBC) [Mass/Vol] 34.4 g/dL Normal 29.9-35.2 [facility] Comment on above: Performed By: #### C BC #### [facility] [address] [place] [address] Dr. Nannette Baker MCV (RBC) [Entitic vol] 90.5 fL Normal 81.0-99.0 [facility] Comment on above: Performed By: #### C BC #### [facility] [address] [place] [address] Dr. Nannette Baker MONO # 0.8 103/ul Normal 0.3-0.8 [facility] Comment on above: Performed By: #### C BC #### [facility] [address] [place] [address] Dr. Nannette Baker Monocytes/100 WBC (Bld) 6.0 % Normal 1.7-12.0 [facility] Comment on above: Performed By: #### C BC #### [facility] [address] [place] [address] Dr. Nannette Baker NEUT # 9.7 103/ul Critically high 1.4-6.5 [facility] Comment on above: Performed By: #### C BC #### [facility] [address] [place] [address] Dr. Nannette Baker Neutrophils/100 WBC (Bld) 74.3 % Normal 43.0-75.0 [facility] Comment on above: Performed By: #### C BC #### [facility] [address] [place] [address] Dr. Nannette Baker Platelet mean volume (Bld) [Entitic vol] 9.4 fL Critically low 9.5-13.5 [facility] Comment on above: Performed By: #### C BC #### [facility] [address] [place] [address] Dr. Nannette Baker PLT 247 103/ul Normal 150-450 [facility] Comment on above: Performed By: #### C BC #### [facility] [address] [address] [address] Nannette Baker RBC 3.69 106/ul Critically low 4.20-5.40 [facility] Comment on above: Performed By: #### C BC #### [facility] [address] [place] [address] Dr. Nannette Baker WBC 13.0 103/ul Critically high 4.0-11.[address] [facility] Comment on above: Performed By: #### C BC #### [facility] [address] [place] [address] Dr. Nannette Baker CBC AUTO DIFFon 11-12-2021 BASO # 0.0 103/ul Normal 0.0-0.1 [facility] Comment on above: Performed By: #### T HCCONF #### [facility] [address] [place] [address] Dr. Nannette Baker Basophils/100 WBC (Bld) 0.3 % Normal 0.2-2.0 [facility] Comment on above: Performed By: #### T HCCONF #### [facility] [address] [place] [address] Dr. Nannette Baker EO # 0.1 103/ul Normal 0.0-0.7 [facility] Comment on above: Performed By: #### T HCCONF #### [facility] [address] [place] [address] Dr. Nannette Baker Eosinophils/100 WBC (Bld) 1.2 % Normal 0.9-7.0 [facility] Comment on above: Performed By: #### T HCCONF #### [facility] [address] [address] [address] Nannette Baker Erythrocyte distribution width (RBC) [Ratio] 12.0 % Normal 11.0-15.0 [facility] Comment on above: Performed By: #### T HCCONF #### [facility] [address] [place] [address] Dr. Nannette Baker Hematocrit (Bld) [Volume fraction] 33.0 % Critically low 36.0-48.0 [facility] Comment on above: Performed By: #### T HCCONF #### [facility] [address] [place] [address] Dr. Nannette Baker Hemoglobin (Bld) [Mass/Vol] 11.1 g/dL Critically low 12.0-16.0 [facility] Comment on above: Performed By: #### T HCCONF #### [facility] [address] [place] [address] Dr. Nannette Baker IG # 0.05 10e3/ul Critically high 0.00-0.03 [facility] Comment on above: Performed By: #### T HCCONF #### [facility] [address] [place] [address] Dr. Nannette Baker IG % 0.5 % Normal 0.0-0.5 [facility] Comment on above: Performed By: #### T HCCONF #### [facility] [address] [place] [address] Dr. Nannette Baker LYMPH # 1.8 103/ul Normal 1.2-3.8 [facility] Comment on above: Performed By: #### T HCCONF #### [facility] [address] [place] [address] Dr. Nannette Baker Lymphocytes/100 WBC (Bld) 16.4 % Critically low 20.5-60.0 [facility] Comment on above: Performed By: #### T HCCONF #### [facility] [address] [place] [address] Dr. Nannette Baker MANUAL DIFF REQ NO Normal [facility] Comment on above: Performed By: #### T HCCONF #### [facility] [address] [address] [address] Nannette Baker MCH (RBC) [Entitic mass] 30.7 pg Normal 26.7-34.0 [facility] Comment on above: Performed By: #### T HCCONF #### [facility] [address] [place] [address] Dr. Nannette Baker MCHC (RBC) [Mass/Vol] 33.6 g/dL Normal 29.9-35.2 [facility] Comment on above: Performed By: #### T HCCONF #### [facility] [address] [place] [address] Dr. Nannette Baker MCV (RBC) [Entitic vol] 91.4 fL Normal 81.0-99.0 [facility] Comment on above: Performed By: #### T HCCONF #### [facility] [address] [place] [address] Dr. Nannette Baker MONO # 0.6 103/ul Normal 0.3-0.8 [facility] Comment on above: Performed By: #### T HCCONF #### [facility] [address] [place] [address] Dr. Nannette Baker Monocytes/100 WBC (Bld) 5.7 % Normal 1.7-12.0 [facility] Comment on above: Performed By: #### T HCCONF #### [facility] [address] [place] [address] Dr. Nannette Baker NEUT # 8.4 103/ul Critically high 1.4-6.5 [facility] Comment on above: Performed By: #### T HCCONF #### [facility] [address] [place] [address] Dr. Nannette Baker Neutrophils/100 WBC (Bld) 75.9 % Critically high 43.0-75.0 [facility] Comment on above: Performed By: #### T HCCONF #### [facility] [address] [place] [address] Dr. Nannette Baker Platelet mean volume (Bld) [Entitic vol] 9.4 fL Critically low 9.5-13.5 [facility] Comment on above: Performed By: #### T HCCONF #### [facility] [address] [address] [address] Nannette Baker PLT 230 103/ul Normal 150-450 [facility] Comment on above: Performed By: #### T HCCONF #### [facility] [address] [address] [address] Nannette Baker RBC 3.61 106/ul Critically low 4.20-5.40 [facility] Comment on above: Performed By: #### T HCCONF #### [facility] [address] [address] [address] Nannette Baker WBC 11.1 103/ul Critically high 4.0-11.0 [facility] Comment on above: Performed By: #### T HCCONF #### [facility] [address] [place] [address] Dr. Nannette Baker Covid-19 PCR ([facility])on 10-25 SARS-CoV-2 (COVID-19) RNA CHARLENE+probe Ql (Unsp spec) Not detected Normal NOT DETECTED [facility] Comment on above: Result Comment: [...] for this test is supported by the [place] [employer] and Human Service's declaration that [...] used). Performed By: #### C VDTBH #### [facility] [address] [place] [address] Dr. Nannette Baker DRUG SCREEN RAPID (URINE)on 11-12-2021 AMP Negative Normal NEGATIVE [facility] Comment on above: Performed By: #### D RUGRPD #### [facility] [address] [place] [address] Dr. Nannette Baker BAR Negative Normal NEGATIVE [facility] Comment on above: Performed By: #### D RUGRPD #### [facility] [address] [place] [address] Dr. Nannette Baker BUP Negative Normal NEGATIVE [facility] Comment on above: Performed By: #### D RUGRPD #### [facility] [address] [place] [address] Dr. Nannette Baker BZO Negative Normal NEGATIVE [facility] Comment on above: Performed By: #### D RUGRPD #### [facility] [address] [place] [address] Dr. Nannette Baker SORAIDA Negative Normal NEGATIVE [facility] Comment on above: Performed By: #### D RUGRPD #### [facility] [address] [place] [address] Dr. Nannette Baker CUT-OFFS SEE BELOW Normal [facility] Comment on above: Result Comment: AMP [...] ng/mL Performed By: #### D RUGRPD #### [facility] [address] [place] [address] Dr. Nannette Baker DRUG CUT HEADER DRUG CLASS TEST SYSTEM CUT-OFF CONCENTRATIONS ARE FOLLOWS: Normal [facility] Comment on above: Performed By: #### D RUGRPD #### [facility] [address] [place] [address] Dr. Nannette Baker mAMP Negative Normal NEGATIVE [facility] Comment on above: Performed By: #### D RUGRPD #### [facility] [address] [address] [address] Nannette Baker MTD Negative Normal NEGATIVE [facility] Comment on above: Performed By: #### D RUGRPD #### [facility] [address] [place] [address] Dr. Nannette Baker OPI Negative Normal NEGATIVE [facility] Comment on above: Performed By: #### D RUGRPD #### [facility] [address] [place] [address] Dr. Nannette Baker OXY Negative Normal NEGATIVE [facility] Comment on above: Performed By: #### D RUGRPD #### [facility] [address] [place] [address] Dr. Nannette Baker PCP Negative Normal NEGATIVE [facility] Comment on above: Performed By: #### D RUGRPD #### [facility] [address] [place] [address] Dr. Nannette Baker PPX Negative Normal NEGATIVE [facility] Comment on above: Performed By: #### D RUGRPD #### [facility] [address] [place] [address] Dr. Nannette Baker TCA Negative Normal NEGATIVE [facility] Comment on above: Performed By: #### D RUGRPD #### [facility] [address] [place] [address] Dr. Nannette Baker THC Positive Abnormal NEGATIVE [facility] Comment on above: Performed By: #### D RUGRPD #### [facility] [address] [place] [address] Dr. Nannette Baker TYPE AND SCREENon 11-12-2021 TYPE AND SCREEN Negative Normal [facility] Comment on above: Performed By: #### T NS #### [facility] [address] [place] [address] Dr. Nannette Baker GROUP B STREP CULTUREon [...] S F Tetracycline >=16 R F Normal [facility] Comment on above: Performed By: #### [facility] #### [facility] [facility] [address] [place] [address] Dr. Nannette Baker US PREG GROWTHon 10-22-2021 [...] SAMIR SHANNON Date: 2021-10-22 16:21 Normal [facility] US PREG GROWTHon 09-25-2021 US [...] SAMIR SHANNON Date: 2021-09-25 16:34 Normal [facility] CBC AUTO DIFFon 08-27-2021 BASO # 0.0 103/ul Normal 0.0-0.1 [facility] Comment on above: Performed By: #### C VDTBH #### [facility] [address] [address] [address] Nannette Baker Basophils/100 WBC (Bld) 0.3 % Normal 0.2-2.0 [facility] Comment on above: Performed By: #### C VDTBH #### [facility] [address] [address] [address] Nannette Baker EO # 0.1 103/ul Normal 0.0-0.7 [facility] Comment on above: Performed By: #### C VDTBH #### [facility] [address] [address] [address] Nannette Baker Eosinophils/100 WBC (Bld) 0.8 % Critically low 0.9-7.0 [facility] Comment on above: Performed By: #### C VDTBH #### [facility] [address] [address] [address] Nannette Baker Erythrocyte distribution width (RBC) [Ratio] 11.9 % Normal 11.0-15.0 [facility] Comment on above: Performed By: #### C VDTBH #### [facility] [address] [place] [address] Dr. Nannette Baker Hematocrit (Bld) [Volume fraction] 33.3 % Critically low 36.0-48.0 [facility] Comment on above: Performed By: #### C VDTBH #### [facility] [address] [address] [address] Nannette Baker Hemoglobin (Bld) [Mass/Vol] 11.3 g/dL Critically low 12.0-16.0 [facility] Comment on above: Performed By: #### C VDTBH #### [facility] [address] [place] [address] Dr. Nannette Baker IG # 0.07 10e3/ul Critically high 0.00-0.03 [facility] Comment on above: Performed By: #### C VDTBH #### [facility] [address] [place] [address] Dr. Nannette Baker IG % 0.6 % Critically high 0.0-0.5 [facility] Comment on above: Performed By: #### C VDTBH #### [facility] [address] [place] [address] Dr. Nannette Baker LYMPH # 1.3 103/ul Normal 1.2-3.8 [facility] Comment on above: Performed By: #### C VDTBH #### [facility] [address] [place] [address] Dr. Nannette Baker Lymphocytes/100 WBC (Bld) 10.8 % Critically low 20.5-60.0 [facility] Comment on above: Performed By: #### C VDTBH #### [facility] [address] [place] [address] Dr. Nannette Baker MANUAL DIFF REQ NO Normal [facility] Comment on above: Performed By: #### C VDTBH #### [facility] [address] [place] [address] Dr. Nannette Baker MCH (RBC) [Entitic mass] 32.1 pg Normal 26.7-34.0 [facility] Comment on above: Performed By: #### C VDTBH #### [facility] [address] [place] [address] Dr. Nannette Baker MCHC (RBC) [Mass/Vol] 33.9 g/dL Normal 29.9-35.2 [facility] Comment on above: Performed By: #### C VDTBH #### [facility] [address] [address] [address] Nannette Baker MCV (RBC) [Entitic vol] 94.6 fL Normal 81.0-99.0 [facility] Comment on above: Performed By: #### C VDTBH #### [facility] [address] [address] [address] Nannette Baker MONO # 0.5 103/ul Normal 0.3-0.8 [facility] Comment on above: Performed By: #### C VDTBH #### [facility] [address] [place] [address] Dr. Nannette Baker Monocytes/100 WBC (Bld) 4.5 % Normal 1.7-12.0 [facility] Comment on above: Performed By: #### C VDTBH #### [facility] [address] [place] [address] Dr. Nannette Baker NEUT # 10.1 103/ul Critically high 1.4-6.5 [facility] Comment on above: Performed By: #### C VDTBH #### [facility] [address] [place] [address] Dr. Nannette Baker Neutrophils/100 WBC (Bld) 83.0 % Critically high 43.0-75.0 [facility] Comment on above: Performed By: #### C VDTBH #### [facility] [address] [place] [address] Dr. Nannette Baker Platelet mean volume (Bld) [Entitic vol] 9.2 fL Critically low 9.5-13.5 [facility] Comment on above: Performed By: #### C VDTBH #### [facility] [address] [place] [address] Dr. Nannette Baker PLT 233 103/ul Normal 150-450 [facility] Comment on above: Performed By: #### C VDTBH #### [facility] [address] [place] [address] Dr. Nannette Baker RBC 3.52 106/ul Critically low 4.20-5.40 [facility] Comment on above: Performed By: #### C VDTBH #### [facility] [address] [address] [address] Nannette Baker WBC 12.1 103/ul Critically high 4.0-11.0 [facility] Comment on above: Performed By: #### C VDTBH #### [facility] [address] [place] [address] Dr. Nannette Baker GLUCOSE - 1HRon 08-23-2021 Glucose [Mass/Vol] 104 mg/dL Normal 74-106 [facility] Comment on above: Performed By: #### T HCCONF #### [facility] [address] [place] [address] Dr. Nannette Baker CHLAMYDIA/GONOCOCCUS CHARLENE ( AB/URINE/PAPon 08-02-2021 Chlamydia trachomatis, CHARLENE Negative Normal Negative [facility] Comment on above: Performed By: #### T HCCONF #### [facility] [address] [place] [address] Dr. Nannette Baker Neisseria gonorrhoeae, CHARLENE Negative Normal Negative [facility] Comment on above: Performed By: #### T HCCONF #### [facility] [address] [place] [address] Dr. Nannette Baker VAGINITIS/VAGINOSIS DNA PROB Dipak 08-01-2021 Niesha species Negative Normal Negative [facility] Comment on above: Performed By: #### V AGINT #### [facility] [address] [place] [address] Dr. Nannette Baker Gardnerella vaginalis Positive Abnormal Negative [facility] Comment on above: Performed By: #### V AGINT #### [facility] [address] [place] [address] Dr. Nannette Baker Trichomonas vaginalis Negative Normal Negative [facility] Comment on above: Performed By: #### V AGINT #### [facility] [address] [place] [address] Dr. Nannette Baker AFP MATERNAL FOR SPINA BIFID Aon 07-04-2021 AFP MoM 1.32 Normal [facility] Comment on above: Performed By: #### A FPMAT #### [facility] [address] [address] [address] Nannette Baker AFP Value 83.8 ng/mL Normal [facility] Comment on above: Performed By: #### A FPMAT #### [facility] [address] [place], [place] [address] Dr. Nannette Baker AFP, Serum for Spina Bifida Report Normal [facility] Comment on above: Performed By: #### A FPMAT #### [facility] [address] [address] [address] Nannette Baker Comment Comment Normal [facility] Comment on above: Result Comment: Jamar Muñiz, Ph.D., [facility] Director . References: Available Upon Request. . Multiples Of Median Cutoffs For AFP Elevations Springer 2.5 Black 2.8 IDD 2.0 Twins 4.5 Abbreviation Definitions IDD - Insulin Dep Diabetes OSBR - Open Spina Bifida Risk . For further inquiries contact [employer] at [phone]. Performed By: #### A FPMAT #### [facility] [address] [address] [address] Nannette Patrick Age Collection Date 20.0 weeks [facility] Comment on above: Performed By: #### A FPMAT #### [facility] [address] [address] [address] Nannette Baker Gestat, Age Based on MARIO [facility] Comment on above: Result Comment: 10/25 Recalculations are not recommended when gestational dating by LMP and ultrasound are within 10 days. Performed By: #### A FPMAT #### [facility] [address] [address] [address] Nannette Baker Insulin Dep Diabetes No Normal [facility] Comment on above: Performed By: #### A FPMAT #### [facility] [address] [address] [address] Nannette Baker Interpretation Comment Normal [facility] Comment on above: Result Comment: Inte [...] Customer Services to discuss available options. The [employer] recommends amniocentesis be offered to women age 35 and older. Performed By: #### A FPMAT #### [facility] [address] [place] [address] Dr. Nannette Baker [age] Normal [facility] Comment on above: Performed By: #### A FPMAT #### [facility] [address] [place] [address] Dr. Nannette Baker Multiple Gestation No Normal [facility] Comment on above: Performed By: #### A FPMAT #### [facility] [address] [place] [address] Dr. Nannette Baker OSBR Risk 1 [place] 4529 Normal [facility] Comment on above: Performed By: #### A FPMAT #### [facility] [address] [place] [address] Dr. Nannette Baker PDF . [facility] Comment on above: Performed By: #### A FPMAT #### [facility] [address] [place] [address] Dr. Nannette Baker Race Normal [facility] Comment on above: Performed By: #### A FPMAT #### [facility] [address] [place] [address] Dr. Nannette Baker Test Results: Negative Normal [facility] Comment on above: Performed By: #### A FPMAT #### [facility] [address] [place] [address] Dr. Nannette Baker US PREG ANATOMY SINGLEon [...] SAMIR SHANNON Date: 2021-07-02 12:33 Normal [facility] HEP B SURFACE ANTIGEN SCREEN on 05-02-2021 HBsAg Screen Negative Normal Negative [facility] Comment on above: Performed By: #### H BSANS #### [facility] [address] [place] [address] Dr. Nannette Baker HEPATITIS C VIRUS AB W/ REFL EX QUANTon 05-02-2021 HCV AB <0.1 Normal 0.0-0.9 [facility] Comment on above: Performed By: #### T HCCONF #### [facility] [address] [place] [address] Dr. Nannette Baker Interpretation: Comment Normal [facility] Comment on above: Result Comment: Nega tive Not infected with HCV, unless recent infection is suspected or other evidence exists to indicate HCV infection. Performed By: #### T HCCONF #### [facility] [address] [place] [address] Dr. Nannette Baker HIV 1 AND 2 WITH REFLEXon HIV Screen 4th Generation wRfx Non-Reactive Normal Non Reactive [facility] Comment on above: Result Comment: HIV Negative HIV-1/HIV-2 antibodies and HIV-1 p24 antigen were NOT detected. There is no laboratory evidence of HIV infection. Performed By: #### C VDTBH #### [facility] [address] [place] [address] Dr. Nannette Baker RPR QUANTon 05-02-2021 Rapid Plasma Reagin, Quant Non-Reactive Normal NonRea<1:1 [facility] Comment on above: Performed By: #### C VDTBH #### [facility] [address] [place] [address] Dr. Nannette Baker RUBELLA AB IGGon 05-02-2021 Rubella Antibodies, IgG 2.65 index Normal Immune >0.99 [facility] Comment on above: Result Comment: Non- immune <0.90 Equivocal 0.90 - 0.99 Immune >0.99 Performed By: #### R UBIGG #### [facility] [address] [place] [address] Dr. Nannette Baker CBC AUTO DIFFon 04-30-2021 BASO # 0.1 103/ul Normal 0.0-0.1 [facility] Comment on above: Performed By: #### T HCCONF #### [facility] [address] [place] [address] Dr. Nannette Baker Basophils/100 WBC (Bld) 0.5 % Normal 0.2-2.0 [facility] Comment on above: Performed By: #### T HCCONF #### [facility] [address] [place] [address] Dr. Nannette Baker EO # 0.2 103/ul Normal 0.0-0.7 [facility] Comment on above: Performed By: #### T HCCONF #### [facility] [address] [place] [address] Dr. Nannette Baker Eosinophils/100 WBC (Bld) 1.5 % Normal 0.9-7.0 [facility] Comment on above: Performed By: #### T HCCONF #### [facility] [address] [place] [address] Dr. Nannette Baker Erythrocyte distribution width (RBC) [Ratio] 11.9 % Normal 11.0-15.0 [facility] Comment on above: Performed By: #### T HCCONF #### [facility] [address] [place] [address] Dr. Nannette Baker Hematocrit (Bld) [Volume fraction] 33.9 % Critically low 36.0-48.0 [facility] Comment on above: Performed By: #### T HCCONF #### [facility] [address] [place] [address] Dr. Nannette Baker Hemoglobin (Bld) [Mass/Vol] 11.9 g/dL Critically low 12.0-16.0 [facility] Comment on above: Performed By: #### T HCCONF #### [facility] [address] [place] [address] Dr. Nannette Baker IG # 0.02 10e3/ul Normal 0.00-0.03 [facility] Comment on above: Performed By: #### T HCCONF #### [facility] [address] [place] [address] Dr. Nannette Baker IG % 0.2 % Normal 0.0-0.5 [facility] Comment on above: Performed By: #### T HCCONF #### [facility] [address] [place] [address] Dr. Nannette Baker LYMPH # 1.8 103/ul Normal 1.2-3.8 [facility] Comment on above: Performed By: #### T HCCONF #### [facility] [address] [place] [address] Dr. Nannette Baker Lymphocytes/100 WBC (Bld) 17.3 % Critically low 20.5-60.0 [facility] Comment on above: Performed By: #### T HCCONF #### [facility] [address] [place] [address] Dr. Nannette Baker MANUAL DIFF REQ NO Normal [facility] Comment on above: Performed By: #### T HCCONF #### [facility] [address] [place] [address] Dr. Nannette Baker MCH (RBC) [Entitic mass] 31.7 pg Normal 26.7-34.0 [facility] Comment on above: Performed By: #### T HCCONF #### [facility] [address] [place] [address] Dr. Nannette Baker MCHC (RBC) [Mass/Vol] 35.1 g/dL Normal 29.9-35.2 [facility] Comment on above: Performed By: #### T HCCONF #### [facility] [address] [place] [address] Dr. Nannette Baker MCV (RBC) [Entitic vol] 90.4 fL Normal 81.0-99.0 [facility] Comment on above: Performed By: #### T HCCONF #### [facility] [address] [place] [address] Dr. Nannette Baker MONO # 0.5 103/ul Normal 0.3-0.8 [facility] Comment on above: Performed By: #### T HCCONF #### [facility] [address] [place] [address] Dr. Nannette Baker Monocytes/100 WBC (Bld) 4.2 % Normal 1.7-12.0 [facility] Comment on above: Performed By: #### T HCCONF #### [facility] [address] [place] [address] Dr. Nannette Baker NEUT # 8.1 103/ul Critically high 1.4-6.5 [facility] Comment on above: Performed By: #### T HCCONF #### [facility] [address] [place] [address] Dr. Nannette Baker Neutrophils/100 WBC (Bld) 76.3 % Critically high 43.0-75.0 [facility] Comment on above: Performed By: #### T HCCONF #### [facility] [address] [place] [address] Dr. Nannette Baker Platelet mean volume (Bld) [Entitic vol] 9.3 fL Critically low 9.5-13.5 [facility] Comment on above: Performed By: #### T HCCONF #### [facility] [address] [address] [address] Nannette Baker PLT 257 103/ul Normal 150-450 [facility] Comment on above: Performed By: #### T HCCONF #### [facility] [address] [address] [address] Nannette Baker RBC 3.75 106/ul Critically low 4.20-5.40 [facility] Comment on above: Performed By: #### T HCCONF #### [facility] [address] [address] [address] Nannette Baker WBC 10.6 103/ul Normal 4.0-11.0 [facility] Comment on above: Performed By: #### T HCCONF #### [facility] [address] [place] [address] Dr. Nannette Baker CULTURE URINEon 04-30-2021 CULTURE URINE Culture Observations: LIGHT GROWTH OF MIXED GENITAL RENETTA. NO POTENTIAL PATHOGENS SEEN. Normal [facility] Comment on above: Performed By: #### U RCX #### [facility] [address] [place] [address] Dr. Nannette Baker GLYCOHEMOGLOBIN A1Con 2021 ADA RECOMMENDATION ADA THERAPEUTIC TARGET 6.0 - 7.0 ACTION SUGGESTED > 7.0 Normal [facility] Comment on above: Performed By: #### T HCCONF #### [facility] [address] [place] [address] Dr. Nannette Baker Glucose [Mass/Vol] 91 mg/dL Normal [facility] Comment on above: Performed By: #### T HCCONF #### [facility] [address] [place] [address] Dr. Nannette Baker HbA1c (Bld) [Mass fraction] 4.8 % Normal <=6.0 [facility] Comment on above: Performed By: #### T HCCONF #### [facility] [address] [place] [address] Dr. Nannette Baker MANNY BOX TEST PT SEND OUTo n 04-30-2021 SENT TO REF LAB 04/30/2021 Normal [facility] Comment on above: Performed By: #### C VDTBH #### [facility] [address] [address] [address] Nannette Baker TYPE AND SCREENon 04-30-2021 TYPE AND SCREEN Negative Normal [facility] Comment on above: Performed By: #### C VDTBH #### [facility] [address] [address] [address] Nannette Baker US PREG TVon 04-05-2021 [...] WENDY POZO Date: 2021-04-05 09:09 Normal [facility] Vital Signs Date Time Vital Sign Value Performing Clinician Facility 04-09-2023 10:35-0500 Body mass index (BMI) [Ratio] 25.69 kg/m2 [employer] Work Phone: [facility] 04-09-2023 10:35-0500 Body weight 65.77 kg [employer] Work Phone: [facility] 04-09-2023 10:35-0500 Diastolic blood pressure 60 mm[Hg] [employer] Work Phone: [facility] 04-09-2023 10:35-0500 Systolic blood pressure 104 mm[Hg] Ginny Rebolledo DO Work Phone: [facility] 01-02-2023 13:00-0500 Diastolic blood pressure 80 mm[Hg] [facility] 01-02-2023 13:00-0500 Heart rate 60 /min [facility] 01-02-2023 13:00-0500 Respiratory rate 14 /min [facility] 01-02-2023 13:00-0500 Systolic blood pressure 110 mm[Hg] [facility] 01-02-2023 10:19-0500 Diastolic blood pressure 81 mm[Hg] [facility] 01-02-2023 10:19-0500 Heart rate 67 /min [facility] 01-02-2023 10:19-0500 Mean blood pressure 90 mm[Hg] [facility] 01-02-2023 10:19-0500 Respiratory rate 16 /min [facility] 01-02-2023 10:19-0500 SaO2% (BldA) [Mass fraction] 100 % [facility] 01-02-2023 10:19-0500 Systolic blood pressure 107 mm[Hg] [facility] 01-02-2023 08:58-0500 Body temperature 97.88 [degF] [facility] 01-02-2023 08:58-0500 Diastolic blood pressure 77 mm[Hg] [facility] 01-02-2023 08:58-0500 Heart rate 77 /min [facility] 01-02-2023 08:58-0500 Respiratory rate 18 /min [facility] 01-02-2023 08:58-0500 Systolic blood pressure 125 mm[Hg] [facility] 06-21-2022 05:00-0400 Diastolic blood pressure 80 mm[Hg] Ritesh Naida [facility] 06-21-2022 05:00-0400 Heart rate 65 /min Ritesh Naida [facility] 06-21-2022 05:00-0400 Hourly Rounding Ritesh Naida [facility] 06-21-2022 05:00-0400 Promise to Return Ritesh Naida [facility] 06-21-2022 05:00-0400 Respiratory rate 12 /min Ritesh Naida [facility] 06-21-2022 05:00-0400 SaO2% (BldA) [Mass fraction] 99 % Ritesh Naida [facility] 06-21-2022 05:00-0400 Systolic blood pressure 121 mm[Hg] Ritesh Naida [facility] 06-21-2022 04:00-0400 Diastolic blood pressure 79 mm[Hg] Ritesh Naida [facility] 06-21-2022 04:00-0400 Heart rate 67 /min Ritesh Naida [facility] 06-21-2022 04:00-0400 Hourly Rounding Ritesh Naida [facility] 06-21-2022 04:00-0400 Promise to Return Ritesh Naida [facility] 06-21-2022 04:00-0400 Respiratory rate 16 /min Ritesh Naida [facility] 06-21-2022 04:00-0400 SaO2% (BldA) [Mass fraction] 100 % Ritesh Naida [facility] 06-21-2022 04:00-0400 Systolic blood pressure 116 mm[Hg] Ritesh Naida [facility] 06-21-2022 03:00-0400 Diastolic blood pressure 78 mm[Hg] Ritesh Naida [facility] 06-21-2022 03:00-0400 Heart rate 64 /min Ritesh Naida [facility] 06-21-2022 03:00-0400 Hourly Rounding Ritesh Naida [facility] 06-21-2022 03:00-0400 Promise to Return Ritesh Naida [facility] 06-21-2022 03:00-0400 Systolic blood pressure 118 mm[Hg] Ritesh Naida [facility] 06-20-2022 23:24-0400 Body temperature 98.24 [degF] Ritesh Naida [facility] 07-04-2021 02:06-0400 Body weight 62.[address] GINNY REBOLLEDO [facility] Comment on above: Performed By: #### AFPMAT #### [facility] [address] [place] [address] Dr. Nannette Baker Encounters Encounter Date Encounter Type Care Provider Facility Start: 04-09-2023 End: 04-09-2023 ambulatory GINNY KESHA Not Available Start: 04-09-2023 End: 04-09-2023 flow sheet Ginny Kesha DO Work Phone: [facility] Comment on above: Second trimester pre gnancy; Diabetes mellitus screening Start: 03-05-2023 End: 03-05-2023 ambulatory GINNY KESHA Not Available Start: 01-22-2023 End: 01-22-2023 ambulatory GINNY KESHA Not Available Start: 01-02-2023 End: 01-02-2023 Emergency department patient visit Amado Rodriguez [place]: 01-02-2023 End: 01-02-2023 Emergency department patient visit Amado Rodriguez [facility] Start: 06-21-2022 End: 06-21-2022 Emergency department patient visit Ritesheliud Orosco Naida [place] Start: 06-20-2022 End: 06-21-2022 Emergency department patient visit Ritesh DanielsBert Pascal [facility] Start: 11-12-2021 End: 11-13-2021 Evaluation and management [...] Date Procedure Procedure Detail Performing Clinician Start: 04-09-2023 Urnls dip stick/tabl et rgnt non-auto w/o micrscp Ginny Rebolledo DO Work Phone: Start: 11-12-2021 Delivery of Products of Conception, External Approach DR GINNY REBOLLEDO Start: 11-12-2021 Drainage of Amniotic Fluid, Therapeutic from Products of Conception, Via Natural or Artificial Opening DR GINNY REBOLLEDO Start: 11-12-2021 Repair Perineum Skin , External Approach DR GINNY REBOLLEDO None (qualifier value) Ritesh Pascal Plan of Treatment Date Care Activity Detail Author Start: 05-14-2023 End: 05-14-2023 Patient encounter procedure 05/14/2023 10:30 AM EDT Routine [facility] [address] [place] [address] Lucia No PA [address] [place] [address] [facility] Start: 04-09-2023 End: 04-09-2024 CBC panel - Blood by Automated count CBC Lab Routine Diabetes mellitus screening Expected: 04/09/2023 (Approximate), Expires: 04/09/2024 [facility] Work Phone: Comment on above: Expected: 04/09/2023 (Approximate), Expires: 04/09/2024 Start: 04-09-2023 End: 04-09-2024 Measurement of glucose 1 hour after glucose challenge for glucose tolerance test Glucose tolerance, 1 hour Lab Routine Diabetes mellitus screening Expected: 04/09/2023 (Approximate), Expires: 04/09/2024 [facility] Comment on above: Expected: 04/09/2023 (Approximate), Expires: 04/09/2024 Immunizations Immunization Date Immunization Notes Care Provider Flavia gilliam 08-11-2016 tetanus toxoid, redu angelica diphtheria toxoid, and acellular pertussis vaccine, adsorbed Ritesh Pascal [facility] Payers Date Payer Category Payer Unknown BCBS BCBS xxxxxx [id number] 2018-Present [phone] [address] [place] [address] [id number] 1997 Unknown [id number] 2.16.840.1.156737.3.579.2.593 1997 Unknown [id number] 2.16.840.1.846180.3.579.2.593 1997 Unknown [id number] 2.16.840.1.450133.3.579.2.593 1997 Unknown [id number] 2.16.840.1.458345.3.579.2.593 1997 Unknown [id number] 2.16.840.1.196982.3.579.2.593 1997 Unknown [id number] 2.16.840.1.225064.3.579.2.593 1997 Unknown [id number] 2.16.840.1.097890.3.579.2.593 1997 Unknown [id number] 2.16.840.1.194791.3.579.2.593 1997 Unknown [id number] 2.16.840.1.200564.3.579.2.593 1997 Unknown [id number] 2.16.840.1.054450.3.579.2.593 1997 Unknown [id number] 2.16.840.1.758328.3.579.2.593 1997 Unknown [id number] 2.16.840.1.626264.3.579.2.727 1997 Unknown [id number] 2.16.840.1.952752.3.579.2.727 1997 Unknown [id number] 2.16.840.1.882757.3.579.2.1259 1997 Unknown [id number] 2.16.840.1.984183.3.579.2.1259 1997 Unknown [id number] 2.16.840.1.714728.3.579.2.1259 1959 Self-pay 1959 Unknown [id number] 1959 Unknown [id number] Unknown [id number] 2.16.840.1.691136.3.579.2.593 Social History Date Type Detail Facility Tobacco Never smoker [facility] Comment on above: Denies. Tobacco smoking status No Smoking Status Entered [facility] Start: 02-12-2023 Sex Assigned At Female F [facility] Start: 02-12-2023 Tobacco smoking status NHIS Never smoked tobacco [facility] Start: 02-12-2023 Tobacco use and exposure Smokeless tobacco non-user [facility] Start: 04-09-2023 Alcohol intake Lifetime non-d brandi (finding) [facility] Start: 02-12-2023 History of Social function [facility] Start: 02-12-2023 Alcohol Comment caffeine: coff ee and soda 16 oz [facility] Start: 12-04-2022 [facility] Start: 1995 [facility] Start: 01-21-2023 Gender identity Identifies as female gender (finding) [facility] Functional Status Date Assessment Result Facility 01-02-2023 Functional Status N/A [facility] 06-20-2022 Functional Status N/A [facility] History of Present illness Narrative 04-09-2023 ASHA Redmond - 04/09/2023 9:40 AM EST Note Date & Type Note Facility 04-09-2023 History of Presen t illness Narrative Reason for Appointment: Patient ID: Ruth Cordero is a 27 y.o. female who presents for Routine Visit Patient presents today for Return OB appointment. Current Medications: has a current medication list which includes the following prescription(s): ondansetron odt. Medical History: Active Ambulatory Problems Diagnosis Date Noted No Active Ambulatory Problems Resolved Ambulatory Problems Diagnosis Date Noted No Resolved Ambulatory Problems Past Medical History: Diagnosis Date 2016 Anxiety Impetigo Family History Problem Relation Name Age of Onset Hypertension Father Social History Tobacco Use Smoking status: Never Smokeless tobacco: Never Substance Use Topics Alcohol use: Never Comment: caffeine: coffee and soda 16 oz Drug use: Never History reviewed. No pertinent surgical history. No Known Allergies Review of Systems: Review of Systems Constitutional: Negative. HENT: Negative. Eyes: Negative. Respiratory: Negative. Cardiovascular: Negative. Gastrointestinal: Negative. Musculoskeletal: Negative. Skin: Negative. Neurological: Negative. Psychiatric/Behavioral: Negative. All other systems reviewed and are negative. Hematological: Negative. Endocrine: Negative. Objective Physical Exam Constitutional: Appearance: Normal appearance. She is normal weight. HENT: Head: Normocephalic. Cardiovascular: Rate and Rhythm: Normal rate. Pulses: Normal pulses. Pulmonary: Effort: Pulmonary effort is normal. Breath sounds: Normal breath sounds. Abdominal: Palpations: Abdomen is soft. Musculoskeletal: General: Normal range of motion. Neurological: General: No focal deficit present. Mental Status: She is alert and oriented to person, place, and time. Psychiatric: Mood and Affect: Mood normal. Behavior: Behavior normal. Thought Content: Thought content normal. Judgment: Judgment normal. Vitals and nursing note reviewed. Vitals: Estimated body mass index is 25.69 kg/m as calculated from the following: Height as of 02/25/22: 5' 3 . Weight as of this encounter: 145 lb. BP: 104/60 Patient's last menstrual period was 11/20/2022. Assessment/Plan Encounter Diagnoses Name Primary? Second trimester Diabetes mellitus screening Patient presents today for a routine obstetrics appointment. Patient is currently 20w0d with a Estimated Date of Delivery: 08/27/23. Patient presents today for a routine obstetrics appointment. Patient is currently 20w0d . Patient states she is doing well but has complaints of being tired due to current . Patient has verbalizes frequent movement. labor precautions was discussed/given Follow Up: Patient is to return to office in 4week for routine OB appointment. Documented by ASHA Redmond on behalf of: Ginny Rebolledo DO documented in this encounter [facility] Discharge instructions 01-02-2023 Note Date & [...] your visits. Where to find more information [employer]: americanpregnancy.org [employer]: [email or web address] [...] provider. Document Revised: 07/18/2020 Document Reviewed: 05/24/2020 [employer] Patient Education 2022 [employer]. 01/02/2023 13:45:55 Diarrhea, Adult Diarrhea, Adult Diarrhea [...] oral rehydration solution (ORS). This is an mzrg-gpp-igugzsd medicine that helps return your body to [...] drinks, sports drinks, and soda. Eat bland, yvvk-yk-kglegz foods in small amounts as you are able. These foods include bananas, applesauce, rice, lean meats, toast, and crackers. Avoid alcohol. Avoid spicy or fatty foods. Medicines Take undx-enh-xmaxvca and prescription medicines only as told by your health care provider. If you were prescribed an antibiotic medicine, take it as told by your health care provider. Do not stop using the antibiotic even if you start to feel better. General instructions Wash your hands often using soap and water. If soap and water are not available, use a hand consumer recruiter. Others in the household should wash their [...] and water are not available, use hand consumer recruiter. Contact a health care provider if your diarrhea gets worse or you have new symptoms. Get help right away if you have signs of dehydration. This information is not intended to replace advice given to you by your health care provider. Make sure you discuss any questions you have with your health care provider. Document Revised: 08/21/2021 Document Reviewed: 08/21/2021 [employer] Patient Education 2022 [employer]. 01/02/2023 13:45:55 Nausea and Vomiting, Adult Nausea [...] water added (diluted fruit juice). Eat bland, bpxa-nq-cxexwq foods in small amounts as you are able. These foods include bananas, applesauce, rice, lean meats, toast, and crackers. Avoid fluids that contain a lot of sugar or caffeine, such as energy drinks, sports drinks, and soda. Avoid alcohol. Avoid spicy or fatty foods. General instructions Take lqmd-dkb-tsfavjy and prescription medicines only as told by your health care provider. Drink enough fluid to keep your urine pale yellow. Wash your hands often using soap and water for at least 20 seconds. If soap and water are not available, use hand consumer recruiter. Make sure that everyone in your household [...] eating and drinking to prevent dehydration. Take ahxv-vnf-vfvvfjk and prescription medicines only as told by [...] provider. Document Revised: 08/16/2021 Document Reviewed: 08/16/2021 [employer] Patient Education 2022 [employer]. 01/02/2023 13:45:55 Abdominal Pain, Adult Abdominal Pain, [...] Follow these instructions at home: Medicines Take zjss-cma-rwdinfk and prescription medicines only as told by [...] Watch your condition for any changes. Take ifnf-iwj-vohrdrq and prescription medicines only as told by [...] provider. Document Revised: 03/30/2020 Document Reviewed: 06/20/2019 [employer] Patient Education 2022 [employer]. Follow Up Care 01/02/2023 08:54:27 With:Ginny REBOLLEDO Address: [address] [place] [address] [facility] (1) When:01/05/2023 13:27:46 Comments:Make sure to follow-up with Dr. Rebolledo for your . Follow-up with Dr. Cuellar for the belly pain. Return to the emergency room if the abdominal pain recurs, vomiting recurs, vaginal bleeding or any new symptoms. With:Patricia Murrieta Address:Unknown When:01/05/2023 13:27:38 [facility] Evaluation + Plan note 01-02-2023 Note Date [...] QID, # 20 cap(s), Refills(s) 0, [id number] 160.1, cm, 01/02/23 9:00:00 EST, [...] Nausea/Vomiting, # 12 tab(s), Refills(s) 0, [id number] 160.1, cm, 01/02/23 9:00:00 EST, [...] US Gallbladder US 1st Trimester US Transvaginal [facility] Evaluation + Plan note 06-21-2022 Note Date & Type Note Facility 06-21-2022 Evaluation + Plan note Extrac jose alfredo from: Title:ED Note Author:Jing Pascal DOah Kwesi Date :06/21/22 Abdominal pain, acute (R10.9 : [...] Pain, # 14 tab(s), Refills(s) 0, Pharmacy: [facility]/pharmacy #[id number], 160, cm, 06/20/22 23:30:00 EDT, Height/Length [...] Nausea/Vomiting, # 16 tab(s), Refills(s) 0, Pharmacy: [facility]/pharmacy #[id number], 160, cm, 06/20/22 23:30:00 EDT, Height/Length [...] With Cult Reflex US Pelvis Non-OB Complete [facility] Discharge instructions 06-21-2022 Note Date & [...] Follow these instructions at home: Medicines Take jikv-syf-hbevejk and prescription medicines only as told by [...] Watch your condition for any changes. Take ztpx-lqq-tizppro and prescription medicines only as told by [...] provider. Document Revised: 03/30/2020 Document Reviewed: 06/20/2019 [employer] Patient Education 2022 [employer]. Follow Up Care 06/20/2022 23:21:21 With:Keith GARCIA Address: [address] [place], [place] [id number]- Business (1) When:06/24/2022 [facility] Evaluation note Note Date & Type Note Facility Evaluation note Diagnosis Second trimester state, incidental Diabetes mellitus screening Screening for diabetes mellitus documented in this encounter [facility] course Narrative Note Date & Type Note Facility Hospital course Narrative No data available for this section [facility] Progress note Note Date & Type Note Facility Progress note No data available for this section [facility] Summary Purpose Family History No Family History Records Found No data available for this section No Family History Records FoundNo Family History Records Found Advance Directives No Advanced Directives Records FoundNo Advanced Directives Records FoundNo Advanced Directives Records Found Additional Source Comments INFORMATION SOURCE (unrecogn ized section and content) DATE CREATED AUTHOR 11/24/2021 [facility] DATE CREATED AUTHOR AUTHOR'S ORGANIZ ATION 01/04/2023 Zackery Torres [facility] DATE CREATED AUTHOR AUTHOR'S ORGANIZ ATION 04/11/2023 [facility] EPIC Patient Care team informatio n (unrecognized section and content) Personnel Name: Keith GARCIA DO Address: Address: [address] [facility] [address] [place], [place] [address] Personnel Name: NONE, XXXX Address: [facility] Reason for Visit (unrecogniz ed section and content) Reason Comments Routine Visit FOR RECORDS PERTAINING TO PATIENTS WHO ARE [...] BE BASED ON THE PRIMARY CLINICAL RECORDS. [employer] provides no warranty or guarantee of the accuracy or completeness of information in this document.
== END 2023-05-11 13:33 | disposition home or self-care (01) ==
LOC: NOMS 13:32
PROVIDERS: Visit Provider Obstetrics & Gynecology
DX: O44.40 Low lying placenta NOS or without hemorrhage, unspecified trimester (principal); Z3A.24 24 weeks gestation of pregnancy
CPT/HCPCS: 76815; 76817

== ENCOUNTER 2023-05-22 12:30 | Outpatient (OUT) | payer BC, SELFPAY ==
[2023-05-22 13:44] LABS: Basophils Absolute Auto 0.1 10^3/uL (0.0-0.1); Basophils Percent Auto 0.3 % (0.2-2.0); Eosinophils Absolute Auto 0.2 10^3/uL (0.0-0.7); Eosinophils Percent Auto 1.1 % (0.9-7.0); Hematocrit 32.6 % (36.0-48.0); Hemoglobin 10.7 g/dL (12.0-16.0); Immature Granulocytes Abs Auto 0.12 10^3/uL (0.00-0.03); Immature Granulocytes Pct Auto 0.8 % (0.0-0.5); Lymphocytes Absolute Auto 2.1 10^3/uL (1.2-3.8); Lymphocytes Percent Auto 13.1 % (20.5-60.0); Mean Corpuscular HGB Conc 32.8 g/dL (29.9-35.2); Mean Corpuscular Hemoglobin 31.6 pg (26.7-34.0); Mean Corpuscular Volume 96.2 fL (81.0-99.0); Mean Platelet Volume 9.3 fL (9.5-13.5); Monocytes Absolute Auto 0.9 10^3/uL (0.3-0.8); Monocytes Percent Auto 5.8 % (1.7-12.0); Neutrophils Absolute Auto 12.5 10^3/uL (1.4-6.5); Neutrophils Percent Auto 78.9 % (43.0-75.0); Platelet Count 282 10^3/uL (150-450); Red Blood Count 3.39 10^6/uL (4.20-5.40); Red Cell Distribution Width 11.9 % (11.0-15.0); White Blood Count 15.8 10^3/uL (4.0-11.0)
[2023-05-22 14:13] LABS: Glucose 1 Hour 77 mg/dL (<130)
== END 2023-05-22 12:31 | disposition home or self-care (01) ==
LOC: LAB 12:30
PROVIDERS: Visit Provider Obstetrics & Gynecology
DX: Z13.1 Encounter for screening for diabetes mellitus (principal)
CPT/HCPCS: 36415; 82950; 85025

== ENCOUNTER 2023-07-22 10:09 | Outpatient (OUT) | payer SELFPAY ==
--- NOTE | 2023-07-22 10:10 | US_ITS ---
[address] [address] Patient Name: LEENA CORDERO MRN: [id number] date: 1995 Sex: F Assigned Patient Location: [facility] Current Patient Location: [facility] Accession/Order Number: [id number] Exam Date: 07/22/2023 10:10 Report Date: 07/22/2023 10:50 At the request of: ESTIVEN CESPEDES Procedure: US OB growth EXAMINATION: US OB growth HISTORY: LARGE FOR GESTATIONAL AGE COMPARISON: 04/09/2023 FINDINGS: Heart Rate: 155.0 bpm Amniotic Fluid Volume: 13.8 cm Number: 1.0 Position: Cephalic presentation, longitudinal lie Maximum Vertical Pocket: 5.8 cm cm 3.3 cm cm 1.4 cm cm 3.4 cm cm BIOMETRY: BPD: 8.7 cm cm; 35 weeks 2 days; 63% HC: 31.3 cmcm; 35 weeks 0 days, 20% AC: 34.0 cm cm; 37 weeks 6 days, greater than 97% FL: 6.9 cm cm; 35 weeks 4 days; 62.7 % % EFW: 3016.9 grams, 92%, 6 lbs. 10 oz. FL/AC: 20.4 FL/BPD: 79.5 HC/AC: 0.9 GESTATIONAL AGE: Age by EDC: 34 weeks 6 days MARIO by EDC: 08/27/2023 Age by US: 36 weeks 0 days MARIO by US: 08/19/2023 US/US OB growth IMPRESSION: Abdominal circumference greater than the 97th percentile Estimated weight 92nd percentile Electronically authenticated by: WENDY POZO Date: 07/22/2023 10:50
== END 2023-07-22 10:10 | disposition home or self-care (01) ==
LOC: NOMS 10:09
PROVIDERS: Visit Provider Physician Assistant
DX: O36.63X0 Maternal care for excessive fetal growth, third trimester, not applicable or unspecified (principal); Z3A.36 36 weeks gestation of pregnancy
CPT/HCPCS: 76816

== ENCOUNTER 2023-07-29 19:25 | Outpatient (REF) | payer OTHER, SELFPAY | END 2023-07-29 19:26 | disposition home or self-care (01) | LOC: LAB 19:25 | PROVIDERS: Visit Provider Obstetrics & Gynecology | DX: Z34.93 Encounter for supervision of normal pregnancy, unspecified, third trimester (principal) | CPT/HCPCS: 87081; 87150; 87186 ==

== ENCOUNTER 2023-08-12 18:08 | Inpatient (IN) | payer OTHER, SELFPAY ==
[2023-08-12] VITALS (9 sets, daily range): BP systolic 105–134; BP diastolic 56–81; PULSE 51–96; TEMP 36
--- OUTSIDE RECORDS SUMMARY | 2023-08-12 18:14 | XMS_ITS | CCD ---
Author Organization [facility] Care Team Providers Care Manufacturing Electrician Name Role Phone KESHA, DR GROSS Admitting [...] Care Unavailable KESHA, DR GROSS Admitting Unavailable WEST, DR WENDY Christiansen Consulting Unavailable KESHA, DR [...] Rodriguez Attending Unavailable Unavailable Primary Care Provider UnavailGINNY Matthews Attending Unavailable KESHA, GINNY Attending Unavailable LUCIA CESPEDES Attending Unavailable KESHA, GINNY Attending Unavailable KESHA, GINNY Attending Unavailable LUCIA CESPEDES Attending Unavailable GINNY REBOLLEDO Attending Unavailable KESHA, GINNY Attending Unavailable KESHA, GINNY Attending Unavailable Medications Current Medications Medication Drug [...] QID, # 20 cap(s), Refills(s) 0, Pharmacy: [facility]/pharmacy #[id number], 160.1, cm, 01/02/23 9:00:00 EST, Height/Length Dosing, [...] Pain, # 14 tab(s), Refills(s) 0, [id number] 160, cm, 06/20/22 23:30:00 EDT, Height/Length [...] Nausea/Vomiting, # 12 tab(s), Refills(s) 0, [id number] 160.1, cm, 01/02/23 9:00:00 EST, Height/Length Dosing, 58.8, kg, 01/02/23 9:00:00 EST, Weight Dosing Start Date: 01/02/23 Status: Ordered Start: 06-21-2022 take 1 tablet by mandy th every eight hours as needed for nausea Zofran ODT 4 mg Tab-Dis 4 mg = 1 tab(s), Oral, q8hr, PRN Nausea/Vomiting, # 16 tab(s), Refills(s) 0, Pharmacy: [facility]/pharmacy #[id number], 160, cm, 06/20/22 23:30:00 EDT, Height/Length [...] applicable or unspecified; Translations: [MAT CARE EXCSS FT GR 3RD TRI UNS] Onset: 10-23-2021 Episodic Other [...] UA Negative Negative - 4(70) +++ mg/dL [facility] Blood, UA Negative Negative - 50 Luis/mcL [facility] Clarity, UA Clear [facility] Color, UA Yellow [facility] Glucose, UA Negative Negative - 1999(110) ++++ mg/dL [facility] Interpretation and review of laboratory results Normal [facility] Ketones, UA Negative Negative - 160(16) ++++ mg/dL [facility] Leukocytes, UA Negative Negative - 500+++ Telma/mcL [facility] Nitrite, UA Negative Negative - Positive [facility] pH, UA 7.5 5 - 9 [facility] Protein, UA Negative Negative - 2000(20) ++++ mg/dL [facility] Spec Grav, UA 1.025 1 - 1.03 [facility] Urobilinogen, UA 0.2 0.2 - 12 mg/dL [facility] Auto Diffon 01-02-2023 Basophils/100 WBC (Bld) 0.2 % Normal 0.0-2.0 [facility] Comment on above: Order Comment: Order Added by Discern Expert. Performed By: #### 2 427581, 11287622, 3422608, 9572095, 9484354, 6150079, 07132096 ####[facility] [address] [place] [address] Basophils/Leukocytes Auto (Bld) [Pure # fraction] 0.0 E9/L Normal 0.0-0.2 [facility] Comment on above: Order Comment: Order Added by Mendy Expert. Performed By: #### 2 285752, 56337648, 0234764, 5066106, 1678905, 9465776, 94032502 ####[address] [address] Eosinophils/100 WBC (Bld) 0.1 % Normal 0.0-8.0 [facility] Comment on above: Order Comment: Order Added by Mendy Expert. Performed By: #### 2 415993, 56213715, 0251666, 2780189, 2981745, 1226691, 29733977 ####[address] [place] [address] Eosinophils/Leukocytes Auto (Bld) [Pure # fraction] 0.0 E9/L Normal 0.0-0.5 [facility] Comment on above: Order Comment: Order Added by Discern Expert. Performed By: #### 2 680692, 76338065, 7593037, 6196165, 7906146, 6319604, 56844506 ####[address] [place] [address] Lymphocytes/100 WBC (Bld) 8.0 % Low 14.0-50.0 [facility] Comment on above: Order Comment: Order Added by Mendy Expert. Performed By: #### 2 478214, 72234230, 7414208, 7847868, 1125830, 1879112, 00574791 ####[facility] [address] [place] [address] Lymphocytes/Leukocytes Auto (Bld) [Pure # fraction] 1.1 E9/L Normal 1.0-4.0 [facility] Comment on above: Order Comment: Order Added by Discern Expert. Performed By: #### 2 452336, 89508535, 3497002, 2363440, 3500401, 2232292, 99334014 ####[address] [place] [address] Monocytes/100 WBC (Bld) 2.9 % Low 4.0-14.0 [facility] Comment on above: Order Comment: Order Added by Discern Expert. Performed By: #### 2 083551, 80506550, 9245757, 5584022, 4386520, 4490045, 86271109 ####[address] [address] Monocytes/Leukocytes Auto (Bld) [Pure # fraction] 0.4 E9/L Normal 0.2-1.0 [facility] Comment on above: Order Comment: Order Added by Discern Expert. Performed By: #### 2 384053, 41238413, 8402012, 4802140, 7974497, 8387448, 81869606 ####[address] [place] [address] Neutrophils/100 WBC (Bld) 88.8 % High 36.0-75.0 [facility] Comment on above: Order Comment: Order Added by Discern Expert. Performed By: #### 2 334824, 37489430, 1015174, 4214457, 8020144, 0669082, 84694569 ####[address] [place] [address] Neutrophils/Leukocytes Auto (Bld) [Pure # fraction] 12.0 E9/L High 2.0-7.5 [facility] Comment on above: Order Comment: Order Added by Discern Expert. Performed By: #### 2 875240, 61589180, 9237713, 9228375, 8252558, 1877435, 85903737 ####[facility] [address] [place] [address] BMPon 01-02-2023 Creatinine [Mass/Vol] 0.5 mg/dL Normal 0.5-1.3 [facility] Comment on above: Performed By: #### 2 983785, 28113702, 8227624, 6959351, 2806774, 7198178, 91475900 ####[facility] [address] [place] [address] Urea nitrogen [Mass/Vol] 10 mg/dL Normal 5-21 [facility] Comment on above: Performed By: #### 2 614829, 02455424, 3801350, 1831780, 6646967, 9080719, 74563947 ####[facility] [address] [place] [address] Urea nitrogen/Creatinine [Mass ratio] 20 No Units Normal 10-20 [facility] Comment on above: Performed By: #### 2 930308, 89077873, 3636040, 6610454, 6180863, 5047641, 54342420 ####[facility] [address] [place] [address] Anion gap [Moles/Vol] 14 mmol/L Normal 6-16 [facility] Comment on above: Performed By: #### 2 843705, 33449399, 5726738, 5322374, 8832675, 2015075, 74750024 ####[facility] [address] [place] [address] Calcium [Mass/Vol] 8.9 mg/dL Normal 8.9-11.1 [facility] Comment on above: Performed By: #### 2 476914, 85555487, 3294418, 2669708, 8552558, 5999334, 75173621 ####[facility] [address] [place] [address] Chloride [Moles/Vol] 103 mmol/L Normal 101-111 [facility] Comment on above: Performed By: #### 2 805563, 30952692, 0626124, 0149738, 8765147, 9065253, 73338995 ####[facility] [address] [place] [address] CO2 [Moles/Vol] 21 mmol/L Normal 21-31 [facility] Comment on above: Performed By: #### 2 445100, 40740643, 6101868, 8956709, 2826074, 5351028, 84463818 ####[facility] [address] [place] [address] Glucose [Mass/Vol] 119 mg/dL Normal 55-199 [facility] Comment on above: Result Comment: If t his glucose result represents a fasting glucose, interpretation should refer to the following reference range: 55-99 mg/dL Performed By: #### 2 786163, 20096501, 5026468, 2686194, 3800428, 9795564, 76264815 ####[facility] [address] [place] [address] Potassium [Moles/Vol] 3.2 mmol/L Low 3.5-5.3 [facility] Comment on above: Performed By: #### 2 740702, 76139798, 9440281, 6290511, 3510619, 9328549, 42090808 ####[facility] [address] [place] [address] Sodium [Moles/Vol] 135 mmol/L Normal 135-145 [facility] Comment on above: Performed By: #### 2 767496, 09086760, 6567831, 0841882, 0885330, 1815272, 09093439 ####[facility] [address] [place] [address] BhCG Quanton 01-02-2023 [place] [address] m[IU]/mL High 1-3 [facility] Comment on above: Result Comment: GEST ATIONAL AGE HCG RANGE (mIU/mL) NON- <1-3 0.2-1 WEEKS 5-50 1-2 WEEKS 50-500 2-3 WEEKS 100-5,000 3-4 WEEKS 500-10,000 4-5 WEEKS 1,000-50,000 5-6 WEEKS 10,000-100,000 6-8 WEEKS 15,000-200,000 8-12 WEEKS 10,000-100,000 Performed By: #### 2 260431 ####[facility] [address] [place] [address] CBC w/ Auto Diffon 3 Erythrocyte distribution width (RBC) [Ratio] 12.3 % Normal 10.9-14.2 [facility] Comment on above: Performed By: #### 2 506204, 98118178, 3519344, 6441901, 3914004, 5081709, 28284263 ####[facility] [address] [place] [address] Hematocrit (Bld) [Volume fraction] 36.5 % Normal 34.0-46.0 [facility] Comment on above: Performed By: #### 2 036957, 94899002, 5713385, 3193533, 5482169, 3458962, 35699402 ####[address] [place] [address] Hemoglobin (Bld) [Mass/Vol] 12.4 g/dL Normal 12.0-16.0 [facility] Comment on above: Performed By: #### 2 983532, 24065387, 7744466, 7068661, 9551469, 7054489, 55658667 ####[address] [place] [address] MCH (RBC) [Entitic mass] 30.1 pg Normal 27.0-34.0 [facility] Comment on above: Performed By: #### 2 668063, 01342833, 2976773, 9298715, 4123867, 4188743, 71599674 ####[facility] [address] [place] [address] MCHC (RBC) [Mass/Vol] 33.9 g/dL Normal 31.4-36.0 [facility] Comment on above: Performed By: #### 2 105492, 77211367, 2021917, 7361374, 2629644, 8865395, 50099051 ####[facility] [address] [place] [address] MCV (RBC) [Entitic vol] 88.8 fL Normal 80.0-100.0 [facility] Comment on above: Performed By: #### 2 362494, 54738887, 3255794, 8771719, 1033003, 2149863, 29213142 ####[facility] [address] [place] [address] Platelet mean volume (Bld) [Entitic vol] 7.4 fL Normal 6.4-10.8 [facility] Comment on above: Performed By: #### 2 190085, 59098120, 6199738, 7223129, 7361621, 4132541, 41639126 ####[address] [address] Platelets (Bld) [#/Vol] 283.0 E9/L Normal 150.0-500.0 [facility] Comment on above: Performed By: #### 2 453135, 32659783, 3306076, 0607593, 0591088, 3777828, 40409335 ####[address] [address] RBC (Bld) [#/Vol] 4.1 E12/L Low 4.3-5.9 [facility] Comment on above: Performed By: #### 2 403256, 63239707, 0876311, 7446572, 8481107, 9156644, 08743504 ####[address] [place] [address] WBC corrected for nucl RBC Auto (Bld) [#/Vol] 13.5 E9/L High 4.0-11.0 [facility] Comment on above: Performed By: #### 2 654721, 92324010, 5058259, 3952375, 4297334, 7276317, 69273821 ####[facility] [address] [place] [address] CHEMISTRYOrdered By: SYSTEM SYSTEM on 01-02-2023 Albumin [...] 133 mL/min/1.73 m2 Normal >=59mL/min/1 .73 m2 [facility] Comment on above: Interpretive Data: [...] reference range: 55-99 mg/[place] [address] m[IU]/mL High 1 - 3 mIU/mL [facility] [...] mg/dL [facility] Remisol Urea nitrogen/Creatinine [Mass ratio] 20 mg/mg Normal 10 - 20 [facility] Remisol COAGULATIONOrdered By: Natalia Wang on 01-02-2023 aPTT Coag (PPP) [Time] 29.4 s Normal 25.1 - 36.5 second(s) [facility] Auto Coag Comment on above: Interpretive Data: [...] the same coagulation reagent and instrumentation as [facility]. Currently there are no coagulation studies available worldwide for children to 14 days, and no normal ranges. Heparin therapeutic range (represented by Anti-Factor Xa activity of 0.2 - 0.4 U/mL) corresponds to PTT of 56.6 - 109.0 sec. INR Coag (PPP) [Relative time] 1.1 {INR} Invalid Interpretation Code [facility] Auto Coag Comment on above: Interpretive Data: I NR results are specifically intended to assess patients stabilized on long-term Anticoagulation therapy suggested INR s Less Intensive Anticoagulation 2.0 3.0 Conventional Range 3.0 4.5 PT Coag (PPP) [Time] 12.1 s Normal 9.4 - 1 2.5 second(s) [facility] Auto Coag Comment on above: Interpretive Data: [...] the same coagulation reagent and instrumentation as [facility]. Currently there are no coagulation studies available worldwide for children to 14 days, and no normal ranges. Consent for Treatmenton 12-24 Consent for Treatment [id number] 31 [id number] #1.00TIFF Normal [facility] Discharge Instructionson Discharge Instructions [id number] 6#1.00TIFF Normal [facility] ED Clinical Summaryon 2022 ED Clinical Summary [address] [address] ED Clinical Summary Person Information Name: RUTH CORDERO/[place] Age: 27 Years : 1995 Sex: Female Language: Ugandan PCP: NONE, XXXX Marital Status: Single Visit [...] 01/02/2023 13:45:55 01/02/2023 13:45:55 01/02/2023 13:45:55 ADDRESS: [address] [place] [id number] PHYS DOC NOTES: MEDICAL INFORMATION: Prescriptions Given: New Medications [id number], [address] [place] [id number], [phone] dicyclomine (Bentyl 10 mg Cap) 2 Capsules [...] Follow up: With: Address: When: Ginny REBOLLEDO [facility], [address] [place] [address] [place] [address] Business (1) In 3 days 01/05/2023 Comments: Make sure to follow-up with Dr. Rebolledo for your . Follow-up with Dr. Cuellar for the belly pain. Return to the emergency room if the abdominal pain recurs, vomiting recurs, vaginal bleeding or any new symptoms. With: Address: When: Patricia Murrieta In 3 days 01/05/2023 DIAGNOSIS: 1:Abdominal pain; 2:Vomiting and diarrhea; 3:Intrauterine ; Diarrhea, unspecified Normal [facility] ED Note-Physicianon 01-03-20 ED Note-Physician Basic [...] and Complexity of Problems Differential Diagnosis: [] [facility] Data External documents reviewed: [] [...] QID, # 20 cap(s), Refills(s) 0, Pharmacy: [facility]/pharmacy #[id number], 160.1, cm, 01/02/23 9:00:00 EST, Height/Length Dosing, [...] Nausea/Vomiting, # 12 tab(s), Refills(s) 0, Pharmacy: [facility] #6173, 160.1, cm, 01/02/23 9:00:00 EST, Height/Length Dosing, 58.8, kg, 01/02/23 9:00:00 EST, Weight Dosing Sodium Chloride 0.9% intravenous solution, 1,000 mL, Soln-IV, IV, Once, Stop date 01/02/23 9:08:00 EST, STAT, Start date 01/02/23 9:08:00 E (more content not included)... Normal [facility] Comment on above: Result Comment: Elec [...] added (diluted fruit juice). ? Eat bland, sttj-kh-bjkxau foods in small amounts as you are able. These foods include bananas, applesauce, rice, lean meats, toast, and crackers. ? Avoid fluids that contain a lot of sugar or caffeine, such as energy drinks, sports drinks, and soda. ? Avoid alcohol. ? Avoid spicy or fatty foods. General instructions ? Take yurd-wcc-xvgkmmk and prescription medicines only as told by your health care provider. ? Drink enough fluid to keep your urine pale yellow. ? Wash your hands often using soap and water for at least 20 seconds. If soap and water are not available, use hand product safety specialist. ? Make sure that everyone in your [...] and drinking to prevent dehydration. ? Take udiq-tgb-mjteuod and prescription medicines only as told by [...] provider. Document Revised: 08/16/2021 Document Reviewed: 08/16/2021 [employer] Patient Education ? 2022 [employer]. Abdominal Pain, Adult Pain in the abdomen [...] these instructions at home: Medicines ? Take ofbs-zpt-rbhidzp and prescription medicines only as told by your health care provider. ? Do not take a laxative unless told by your health care provider. General instructions ? Watch your condition for any changes. ? Drink enough fluid to keep your urine pale yellow. ? Keep all follow-up visits as told by your h (more content not included)... Normal [facility] ED Patient Summaryon 023 ED Patient Summary [place] [id number] Patient Discharge Instructions Person Information Name: RUTH CORDERO Age: 27 Years Arrival Date: 01/02/2023 08:53:06 Discharge Diagnosis: 1:Abdominal pain; 2:Vomiting and diarrhea; 3:Intrauterine ; Diarrhea, unspecified Primary Care Physician: NONE, XXXX Provider Information Primary Provider: Amado Rodriguez M.D. Advanced Environmental Science Professor:None The exam and treatment you received in the Emergency Department were for an urgent problem and are not intended as complete care. It is important that you follow up with a doctor, nurse practitioner, or physician?s clinic office assistant for ongoing care. If your symptoms [...] Follow-up Instructions: With: Address: When: Ginny REBOLLEDO [facility], [address] [place] [address] [place] [address] [facility] (1) In 3 days 01/05/2023 Comments: Make [...] opioids can be used to help relieve kihsxddp-hp-scegbv pain and are often prescribed following a [...] your community (more content not included)... Normal [facility] HEMATOLOGYOrdered By: SYSTEM SYSTEM on 01-02-2023 [...] 7.4 fL Normal 6.4 - 10.8 fL [facility] HemeAutoSS Platelets (Bld) [#/Vol] 283.0 E9/L Normal 150.0 - 500.0 E9/L [facility] HemeAutoSS RBC (Bld) [#/Vol] 4.1 E12/L Low 4.3 - 5.9 E12/L [facility] HemeAutoSS WBC corrected for nucl RBC Auto (Bld) [#/Vol] 13.5 E9/L High 4.0 - 11.0 E9/L [facility] HemeAutoSS Hep Func Panelon 01-02-2023 Albumin [Mass/Vol] 4.1 g/dL Normal 3.3-5.0 [facility] Comment on above: Performed By: #### 2 655982, 67979886, 7794720, 0883909, 7822309, 4825403, 08316775 ####[facility] [address] [place] [address] Albumin/Globulin (S) [Mass conc ratio] 1.2 Normal 1.1-2.2 [facility] Comment on above: Performed By: #### 2 003662, 42932021, 4199922, 3281715, 3945547, 2780077, 81860093 ####[facility] [address] [place] [address] ALP [Catalytic activity/Vol] 57 Int._Unit/L Normal 21-98 [facility] Comment on above: Performed By: #### 2 961588, 33952105, 7945165, 1678110, 1598299, 2428766, 17714770 ####[facility] [address] [place] [address] ALT No additional P-5'-P [Catalytic activity/Vol] 13 Int._Unit/L Normal 6-46 [facility] Comment on above: Performed By: #### 2 454311, 33331981, 5735677, 6840633, 1761647, 6431543, 27444377 ####[facility] [address] [place] [address] AST [Catalytic activity/Vol] 26 Int._Unit/L Normal 5-43 [facility] Comment on above: Performed By: #### 2 820001, 17045509, 8335745, 1676018, 4701109, 1084926, 36279457 ####[facility] [address] [place] [address] Bilirubin [Mass/Vol] 1.0 mg/dL Normal 0.0-1.1 [facility] Comment on above: Performed By: #### 2 633150, 10134436, 4252721, 9809683, 2394687, 3484247, 00541598 ####[facility] [address] [place] [address] Bilirubin.direct [Mass/Vol] 0.2 mg/dL Normal 0.1-0.4 [facility] Comment on above: Performed By: #### 2 858241, 21570185, 2192524, 5821422, 5267194, 6097338, 74457860 ####[facility] [address] [place] [address] Bilirubin.indirect [Mass or moles/Vol] 0.8 mg/dL Normal 0.1-0.9 [facility] Comment on above: Performed By: #### 2 138345, 45058600, 3457416, 2457902, 2777489, 8155594, 72944286 ####[facility] [address] [place] [address] Globulin (S) [Mass/Vol] 3.5 g/dL Normal 1.4-4.0 [facility] Comment on above: Performed By: #### 2 543518, 64498714, 0949483, 4062835, 4452593, 0220574, 57308328 ####[facility] [address] [place] [address] Protein [Mass/Vol] 7.6 g/dL Normal 6.0-7.8 [facility] Comment on above: Performed By: #### 2 494684, 22569510, 0488312, 2077899, 8303912, 8462478, 14801433 ####[facility] [address] [place] [address] Lipase Levelon 01-02-2023 Lipase [Catalytic activity/Vol] 79 U/L High 13-58 [facility] Comment on above: Performed By: #### 2 488565, 56415486, 8325425, 8055405, 7989726, 8529991, 19950787 ####[facility] [address] [place] [address] PT & PTTon 01-02-2023 aPTT Coag (PPP) [Time] 29.4 second(s) Normal 25.1-36.5 [facility] Comment on above: Result Comment: Para [...] the same coagulation reagent and instrumentation as [facility]. Currently there are no coagulation studies available worldwide for children to 14 days, and no normal ranges. Heparin therapeutic range (represented by Anti-Factor Xa activity of 0.2 - 0.4 U/mL) corresponds to PTT of 56.6 - 109.0 sec. Performed By: #### 2 515896, 15346326, 7671981, 2868678, 1649095, 1867278, 99625177 ####[facility] [address] [place] [address] INR Coag (PPP) [Relative time] 1.1 {INR} Invalid Interpretation Code [facility] Comment on above: Result Comment: INR results are specifically intended to assess patients stabilized on long-term Anticoagulation therapy suggested INR?s ?Less Intensive Anticoagulation? 2.0 ? 3.0 Conventional Range 3.0 ? 4.5 Performed By: #### 2 651296, 55973102, 0496061, 4113251, 4906213, 7996250, 49576928 ####[facility] [address] [place] [address] PT Coag (PPP) [Time] 12.1 second(s) Normal 9.4-12.5 [facility] Comment on above: Result Comment: 15 [...] the same coagulation reagent and instrumentation as [facility]. Currently there are no coagulation studies available worldwide for children to 14 days, and no normal ranges. Performed By: #### 2 601986, 28856339, 5746295, 1460218, 8075866, 9169203, 80956742 ####[facility] [address] [place] [address] UA With Cult Reflexon 2022 Bacteria LM Ql (Urine sed) TRACE Normal Trace [facility] Comment on above: Performed By: #### 1 0239736 ####[facility] [address] [place] [address] Bilirubin Ql (U) Negative Normal Negative [facility] Comment on above: Performed By: #### 1 3012137 ####[facility] [address] [place] [address] Clarity (U) SL CLOUDY Abnormal Clear [facility] Comment on above: Performed By: #### 1 8169428 ####[address] [address] Color (U) YELLOW Normal Yellow [facility] Comment on above: Performed By: #### 1 2610110 ####[address] [address] Epithelial cells.squamous LM.HPF (Urine sed) [#/Area] 9-10 Normal 0-2 [facility] Comment on above: Performed By: #### 1 7085795 ####[address] [address] Glucose Test strip (U) [Mass/Vol] Negative Normal Negative [facility] Comment on above: Performed By: #### 1 2765926 ####[address] [address] Hemoglobin Ql (U) Negative Normal Negative [facility] Comment on above: Performed By: #### 1 5932825 ####[address] [address] Ketones (U) [Mass/Vol] 2+ Abnormal Negative [facility] Comment on above: Performed By: #### 1 7098883 ####[address] [address] [place].plasma/[place] .RBC (Bld) [Mass ratio] 0-3 Normal 0-3 [facility] Comment on above: Performed By: #### 1 4450782 ####[address] [address] Mucus Ql (Urine sed) 2+ Normal Fish [facility] Comment on above: Performed By: #### 1 5620342 ####[address] [address] Nitrite Ql (U) Negative Normal Negative [facility] Comment on above: Performed By: #### 1 5264437 ####[address] [address] pH (U) 8.5 [pH] Invalid Interpretation Code 5.0-9.0 [facility] Comment on above: Performed By: #### 1 9016688 ####[facility] [address] [place] [address] Protein (U) [Mass/Vol] Negative Normal Negative [facility] Comment on above: Performed By: #### 1 1053772 ####[address] [address] Specific gravity (U) [Rel density] 1.015 Invalid Interpretation Code 1.005-1.030 [facility] Comment on above: Performed By: #### 1 [id number] ####[facility] [address] [place] [address] Spermatozoa LM Ql (Urine sed) Present Normal [facility] Comment on above: Performed By: #### 1 [id number] ####[address] [address] Type of Urine collection method Clean Catch Normal [facility] Comment on above: Performed By: #### 1 [id number] ####[address] [address] Urobilinogen Qn (U) 0.2 {Hima'U}/dL Normal 0.0-1.0 [facility] Comment on above: Performed By: #### 1 [id number] ####[address] [address] WBC Auto Ql (U) Negative Normal Negative [facility] Comment on above: Performed By: #### 1 [id number] ####[address] [address] WBC LM.HPF (Urine sed) [#/Area] 0-5 Normal 0-5 [facility] Comment on above: Performed By: #### 1 [id number] ####[address] [address] URINALYSISOrdered By: Cata Wang on 01-02-2023 Bacteria LM Ql (Urine sed) Trace /HPF Normal Trace/HPF [facility] UA Auto SS Bilirubin Ql (U) Negative [...] Interpretation Code Negative [facility] UA Auto SS [place].plasma/[place] .RBC (Bld) [Mass ratio] 0-3 /HPF Normal [...] [facility] UA Auto SS Urobilinogen Qn (U) 0.9392685 {Hima'U}/dL Normal 0.0 - 1.0 EU/dL [facility] [...] Transcribed by: JUAN FRANCISCO Technologist: RAMÓN [facility] US 1st Trimesteron 01-02-2023 US 1st [...] corresponding gestational age +/- 1 week are: [place] Rump Length: 0.5 cm Composite Ultrasound Age: [...] History 3 Para 2 SAB 1 Normal [facility] US Transvaginalon 01-02-2023 US Transvaginal Exam Date/Time: 01/02/2023 11:37 EST Reason for Exam: pain Report Refer to concurrent ultrasound first trimester dictation. Ordering Provider: Amado Rodriguez FINAL REPORT Dictated: 01/02/2023 11:48 am Jos Lozano MD Signed (Electronic Signature): 01/02/2023 11:48 am Signed by: Jos Lozano MD Transcribed by: JUAN FRANCISCO Technologist: RAMÓN Normal [facility] eGFRon 01-02-2023 GFR/1.73 sq M.predicted among non-blacks MDRD (S/P/Bld) [Vol rate/Area] 133 mL/min/1.73 m2 Normal >=59 [facility] Comment on above: Order Comment: Order added by Discern Expert. Result Comment: Clinical Transplant Coordinator saranya kidney disease could be indicated at eGFR's of less than 60 mL/min/1.73m2. Kidney failure is indicated at less than 15 mL/min/1.73m2. Performed By: #### 2 455458, [id number], 1322696, 5857048, 3405638, 7834115, 60340721 ####[facility] [address] [place] [address] Coding Summary.on 06-23-2022 Coding Summary. CD:[id number] Ww+PGhlYWQ+CE2NWMHbY 94eaPBxeT6kG3TEKSoDL ywgQVBQTElOSyIgbmFtZ N7fqXPdDOGm IC8+AE0tXMIaMbwbwFUf r2E1yOY0L56max0dNGpv xAR7QXNzIsRtehbmd9ms jRw7ERndGileZkQu BBScoS52VIX5iD14Gt58 sWXtkRJyn6jqqNe5PbAj SICfCAD0cKwcRUvpx1Pr CTAsE64qgBCms4N1 IGNvbGxhcHNlOyBlbXB0 jH8lGBcdyyeve0memznc Ood5pi96pXVdm2N1rIR2 E9KalbE9RDNxiXEi OqtukPBHbP6gohqyu4cn idfiBtXnUEGgLFm8MCf4 KRAjqLusRvGeAN88AWR9 IFBcmoKyB3AxIOCs zAymOmM4a4D0Qo0NZ4VM ToryL5ADOSLLUYadgTH+ JR59ct06B2FeOvceWtw4 OQPzANI5sFF2dQ0b MKCcAOgga6L9jTA8Y7Xk gkQpnk6wp5bsQGXlDUdz S43omRHoz8W8UXDzcMH9 TXAqfEmkViWbvE80 Oyc+MAMmmXppv4DoVcac t7wlu3gnmHf6EwmpQVQi miGpaUaiOTN0a4LhXe1u NTWnxBA2iEA3aT0c VlGfRwQ8PZuaR445CuTu rIBqLzwuM73vF7AmnHF+ NLHlYoy3PFExrNxpWX6f U7JrNSSnzbmciRQy kFpoUK0rTNEisvsuGCDl xQ0pSKGzC0x1ZqUqZqI3 GFytT4RfJPVhnkzdVx24 yM0xWiZvBjH9EXac A7KjekP2TTGmeSTaVHwt LMN5L51un2U3SLMvCZXf XEI4wQO2pP1xoZvakpsc bGVmdDsgdmVydGlj RGzoWXruM328RKBkoXcp PkNvZGluZyBEYXRlOiAg MDUvMDEvMjAyMzwvdGQ+ TAUtUVE3hUqcQKIw jKRrBQcjKd7ngYxwqSqb DP9uEBHffdgwBRGkbZ9z PXPwaSRkjGsrQS1qYBJx isglf376BcJjBYY4 ASTnxZIzY5ArrC3sAqZn IVSxKDWxA6YmeBFvQYgi N768CSlpHyG7PCMkxkLd Y3SvMMPeaNuhQbG5 g6A9Ej2Tf7NngbdvS2Ts uKXkHbIoInhvLTu0L2Gq PjwvdHI+PC13IUMzIJ13 KJo5VKQ1kYtgEOia NHSdS4XwgR9rKjPfOOCr ZGRkOyc+PHRhYmxlIHdp ZHRoPScxMDAlJyBzdHls IL8xIt8mOGWuPKNq zDlykFQbIbBov9rzZFOx WNeyFZ0wjYvoO8ZfcVL3 TCWep8v9Jo13S88rD5Zp dXA+NIQagUT0oIZ4 dF9yMmBbNsP3PLjzZ539 TzMteNQwBwpga1gid3zz uTw1PnQ9VHPmiyEozHpv TYT2j6YvTa42K91m IHdpZHRoPSIxNSUiIHZh mZxbgl1ljZ4vIn4+PGNv vSY8fPA0mK5iEnEtNsY1 HHcfG602QgVmwXXb Bjfzs6yvt1eluSh3SgEr ZXXwliVmtOszAFU2c7Ot Uo78V9SjbVlmq5BkDar0 dy13zEAih1M1lLP1 P9AaZSIahvmsaFDvtOvy AN0hVUQdmyawXTHjwP9s MRBkG7r5BuFeIlN6BEzc D4PwftN6TIDltSOm KKOomGKSnA6djjmhn8yp rqkxAnUqTXOpYTn1GGv6 QRScwIvrNcQfOMN1JaF3 ADI1eJKhhD5xtTbr uorcqY3pUed+ANC1uIPx jIYUMQ7qDaiwcAG+PHRk KEL3fHeyWIcxHHAysZ0n DSUcY5b1DgCnFcT8 PVxuE6QsbcW6CZEaaSLj YTIofDOTzD2rrjeof3qi fytaWxRwYWDeCBm6DBk2 LWFsaWduOiBsZWZ0 DdR3LUY4nCBjhD1poMxs jumsyI7qKdy+QmlydGgg NVM8EKa9W0VrYxr3QLCl nBknOS4fwQOaNDan Tb4huLcyyYwyMO3iEERo taqgl548PwItj4aeENLm aKCpTFxjPDV5B32yt0J9 CVXdTEOtYFV6yQE9 yX1tcYleqlrniURdzOnu etUllCbtHAnzUNyoB173 MYTreMicGbWzLIi3Y3Ay Fdh3XFJrlFuhCP4a ySWkTKwyQx0shKooiFxa GO5vYRCgqyfdq638UvIs n7wiBYQcsHOsFEozPAM1 I34gu4J5KXGeQTDd WRO6jEG2rQ6twJjhbhks bGVmdDsgdmVydGljYWwt BXrxZ361HGItgAwdJsTr gYw6Q0VtVji9YYVa qHjjMB5pwKVyXTkrQt8q iLlioPgcFY8mAWFwerrh x388GvEkz8uhUUMejABq KRnsDNO4Y17ox1O6 XKXyBMWuXQY4yVC2xQ6d bGlnbjogbGVmdDsgdmVy rYznHCnkLKtsR606VHFe cDsnPlBhdGllbnQg LBovDAb0E6WvEzldtUK+ SB76CTLjXA20wYOwcTDf u1munLw4EsEdUPCjNAE9 gIspSHofo6BiXKGf P81rdLTxq4W9WNHfvUmq uIXaIbKxgIL2zX9uGVnk nxjtr9ssmnrkHwgyw6ki xc92uU66V23vPPog ZHRoPSIzMCUiIHZhbGln ny6tmK1lJd7+PGNvbCB3 gCA2xH4wARYcMhV7UHql X414KmIlzIKfUixd h3anw0bfzNy4DeG8DRVj onUoeXvkBEA1w5RrIj01 X76mUCgbQQLcCZJvTDVa GCLqsWsrso1ziP6b Ii8+SBWdrTV9qHE7kA2n QkMdEmR3CMhmX051UhTx yNNxRespJ54pJ8OvjJH+ FAKqRdv9RXYlxOyz GH1xjFLoNQaxYt3uZTZ1 CvEpEtAnYZoqK1OtOGCx cmwphrjaoJJ0RSHiDDSj mD25Uj1rmUepNOBw jVQGnD8eqkbzt8wpckur KfLvQSKcUTb7NEs6TWFl uZthPnQtWAL3QvO5SVE5 mUFjqT8wvBsmzyib gI6pI9BlCCMokvcuTo29 sW4mPoLvWuL6MThgCdc+ J9UUIMCWZQBCIRSRVSAV NK7QCzI9O2NfAkr3 AALwlSyzPN8ihHSlNXpn Al4ceAmwkPnaPX7wYQAg hgqsPGDfuZ7rFOSjyMLo tTlrYS7fERNbvztd m496QfBlKCH4EPKiwNGi M3GhsC8hQvJoCKAiQBSg O3KrqDKbCKnzG186ETbd BsK2RUIfyiBoA1Nv YZJfyQkhKgF5l4R0Cm6s Zm1qUK2xODl7IM66IO28 sOSum0Q4hDM0U3QdHSLc crneftmpvKG8KINi ZEXpjI31eLOlLXkoVy2j f0A8u143RTPdDVImdA44 Gl3xwCppPLEogZPSmY6v fbiuk3dnhjdlIfVh PTEpIMk9OSe8GSOnzWwk NaMkVTG3DbB1ZKW9zNHa hX9dfIukvxufhT1bUxe+ LaYkSQQbuiJ8F5Jc Niq6KFPafBywWM2wwOMa UBmoHb1wfWkdlPtvCU3w UVYcslniJMSxiD2iDRVo sYUrqHszBO7lBVYm yvynl873FaOmFWT8RNQe nWCjH8AbcF0kSsOxGWNi OVHyU4RhqBRbBZiyV499 TVuiMpB4MCZeyfVq F0JsFPHbjFnjJlC4z5O9 Uh8TYC2lnNH4W3RrXqn1 PIYzsPbmXW2kgFQbBOxu Kz0dmXqxfDpePA8e RIBrkmaeIYUmfP2uMTPm tKDecKqhFA7sEYBbqkkm n290RyJkNPP6VKAiqXQd E5OgzI2eXpKePUAe UXRaN1WcfZQfPVqrA206 DCnsMeA5ZIBfphUyB5Tu ODGemBtfMmI0h4J4Yi1I qOEzJ1NeI3e1J4Te PjwvdHI+ZA86HLGyEV64 vOMujBKdo6fhdHp3GvWf MCKtPKE4rBftLVnwb7Zw LLEqV73iyNWvm9S7 IGNvbGxhcHNlOyBlbXB0 yB7vUPabuynlp2hziqbb Cuool9yoex75cA37E89i IHdpZHRoPSIzMCUi YYRyzApkuj2gvR4uVx9+ ZSCkhVJ6nMI3oH2lVuYf ZkH7SCuwI783MpRdqQPq Xivag6nmn0jcsEj9 IjIwJSIgdmFsaWduPSJ0 y6CbPo16E41eZUfjQEYx IYBjSMPxTXCtrWrmqd2d fE7hHm1+SM6yp2sf fm84lS15eYL+PHRkIHN0 fOjnGZbdFZFtjB7dTLky VkU9MGKyAtXbmU31hUPx KRdyHi9nrGngbRym ZI7yMIXnmgepo506FwFa t9vlIDGliBZsMApiVQR8 J08ka6N3ZDHlNCOeJPJ3 dMO9xG9qdNllnsuc bGVmdDsgdmVydGljYWwt NMsgW331AATfjEiwBpCg vPNlU4gwgeSRWZ9nGfbp dGQ+RLNyGHL7dRoq LIpfHCIxqE7oVNUcO6y6 SgLnUgY0WMmiW1CdsvZ7 LNBtgJLpKPGhuDORkG4r iehhz2ghtetuVzHs DQNoKCa4QZn3KNJsfLos KiDbGLP9LdR7FDA5hFRh lD4enDxzjdbdtN1lInw+ RklOOjwvdGQ+PHRk SEJ9uFedPIdvHJSkaL5j KZIyE8g7EwUeSbR3UHlf B6IerkL4TCTmfTHeEWDn hQATuT3fhhxrw2dl myawQhSxKKNrJPr5JOz4 DETijGhuGwXjUZV5EbL0 EZS0sTVdeM8soRvmennm tZ4cQil+TVJOOjwv dGQ+ZUYwFCC3aSexRAjb LBCwxL4hIVPiE4v3PjXm AbB8FAyqA2IxcrR3AFDq kILiWCVznWRWdC9w pvgkm4htoldbMaDgDJUh ISf3VPt0TQUbeRgjFtNv ZBA2DuV1BVN7kCUjiH7l zBayxlootZ5iPwl+ QYY6MEI3EK05IA35X3Ez PjwvdGFibGU+PHRhYmxl IHdpZHRoPScxMDAlJyBz bZvcDH1qVn6fATCk LWNvbGxh (more content not included)... Normal [facility] Auto Diffon 06-21-2022 Basophils/100 WBC (Bld) 0.7 % Normal 0.0-2.0 [facility] Comment on above: Order Comment: Order Added by Discern Expert. Performed By: #### 2 982142, 9994511, 1242370, 7132553, 69294143, 84302651, 2161062 ####[address] [address] Basophils/Leukocytes Auto (Bld) [Pure # fraction] 0.2 E9/L Normal 0.0-0.2 [facility] Comment on above: Order Comment: Order Added by Discern Expert. Performed By: #### 2 556997, 4099855, 4750526, 4071328, 22288139, 94876042, 1898714 ####[address] [place] [address] Eosinophils/100 WBC (Bld) 0.9 % Normal 0.0-8.0 [facility] Comment on above: Order Comment: Order Added by Discern Expert. Performed By: #### 2 405716, 5058685, 5237629, 2183023, 32599164, 42170922, 3425522 ####[address] [place] [address] Eosinophils/Leukocytes Auto (Bld) [Pure # fraction] 0.2 E9/L Normal 0.0-0.5 [facility] Comment on above: Order Comment: Order Added by Discern Expert. Performed By: #### 2 646694, 6186397, 5538740, 5768195, 24899377, 88861058, 2840667 ####[address] [place] [address] Lymphocytes/100 WBC (Bld) 19.5 % Normal 14.0-50.0 [facility] Comment on above: Order Comment: Order Added by Discern Expert. Performed By: #### 2 964970, 5719470, 7882058, 6725790, 22199764, 09662704, 1093880 ####[address] [place] [address] Lymphocytes/Leukocytes Auto (Bld) [Pure # fraction] 4.2 E9/L High 1.0-4.0 [facility] Comment on above: Order Comment: Order Added by Discern Expert. Performed By: #### 2 078711, 0321369, 1799434, 5098140, 96147175, 96568073, 0931826 ####[address] [address] Monocytes/100 WBC (Bld) 4.9 % Normal 4.0-14.0 [facility] Comment on above: Order Comment: Order Added by Discern Expert. Performed By: #### 2 828384, 9316888, 9796142, 1053419, 34889503, 37332542, 0412078 ####[address] [address] Monocytes/Leukocytes Auto (Bld) [Pure # fraction] 1.1 E9/L High 0.2-1.0 [facility] Comment on above: Order Comment: Order Added by Discern Expert. Performed By: #### 2 640691, 3447371, 2232746, 2481431, 78686900, 59813060, 0828350 ####[address] [place] [address] Neutrophils/100 WBC (Bld) 74.0 % Normal 36.0-75.0 [facility] Comment on above: Order Comment: Order Added by Discern Expert. Performed By: #### 2 775816, 3727128, 8239460, 0096348, 23723044, 30486050, 2992795 ####[facility] [address] [place] [address] Neutrophils/Leukocytes Auto (Bld) [Pure # fraction] 15.9 E9/L High 2.0-7.5 [facility] Comment on above: Order Comment: Order Added by Discern Expert. Performed By: #### 2 195929, 5551822, 6659074, 3970263, 75247198, 84583876, 9387245 ####[facility] [address] [place] [address] B hCG Qualon 06-21-2022 Beta hCG Ql Negative Normal [facility] Comment on above: Performed By: #### 2 590244, 3903466, 5846535, 6317001, 57756178, 62874049, 7627910 ####[facility] [address] [place] [address] BMPon 06-21-2022 Creatinine [Mass/Vol] 0.7 mg/dL Normal 0.5-1.3 [facility] Comment on above: Performed By: #### 2 448112, 7516410, 2731071, 0574025, 35152033, 47764921, 5877310 ####[facility] [address] [place] [address] Urea nitrogen [Mass/Vol] 12 mg/dL Normal 5-21 [facility] Comment on above: Performed By: #### 2 668258, 8993432, 5594458, 1819234, 45266753, 41690185, 9934901 ####[facility] [address] [place] [address] Urea nitrogen/Creatinine [Mass ratio] 17 No Units Normal 10-20 [facility] Comment on above: Performed By: #### 2 950288, 3367053, 0330550, 9483428, 76170267, 38514329, 5481529 ####[facility] [address] [place] [address] Anion gap [Moles/Vol] 12 mmol/L Normal 6-16 [facility] Comment on above: Performed By: #### 2 099682, 7119242, 6212801, 4838524, 94598943, 84412657, 3450283 ####[facility] [address] [place] [address] Calcium [Mass/Vol] 8.8 mg/dL Low 8.9-11.1 [facility] Comment on above: Performed By: #### 2 943290, 5243875, 4125419, 7668618, 05682724, 25348008, 6013933 ####[facility] [address] [place] [address] Chloride [Moles/Vol] 105 mmol/L Normal 101-111 [facility] Comment on above: Performed By: #### 2 579998, 3735800, 1566467, 3808513, 82254211, 46215484, 7723285 ####[facility] [address] [place] [address] CO2 [Moles/Vol] 23 mmol/L Normal 21-31 [facility] Comment on above: Performed By: #### 2 437229, 3004130, 3605870, 2376112, 43383484, 26331080, 1941037 ####[facility] [address] [place] [address] Glucose [Mass/Vol] 104 mg/dL Normal 55-199 [facility] Comment on above: Result Comment: If t his glucose result represents a fasting glucose, interpretation should refer to the following reference range: 55-99 mg/dL Performed By: #### 2 945887, 3559690, 2904672, 1194034, 10272150, 13469510, 7215896 ####[facility] [address] [place] [address] Potassium [Moles/Vol] 3.4 mmol/L Low 3.5-5.3 [facility] Comment on above: Performed By: #### 2 805246, 7332710, 2940129, 3666032, 34900043, 88256564, 2519208 ####[facility] [address] [place] [address] Sodium [Moles/Vol] 137 mmol/L Normal 135-145 [facility] Comment on above: Performed By: #### 2 697891, 9572279, 5566418, 2737247, 56658907, 06401398, 6221352 ####[address] [address] CBC w/ Auto Diffon 3 Erythrocyte distribution width (RBC) [Ratio] 12.3 % Normal 10.9-14.2 [facility] Comment on above: Performed By: #### 2 314424, 5659191, 8745186, 7115205, 42896861, 77553818, 7433896 ####[address] [address] Hematocrit (Bld) [Volume fraction] 41.0 % Normal 34.0-46.0 [facility] Comment on above: Performed By: #### 2 162762, 9654104, 4692279, 1330619, 99733575, 20587250, 6030679 ####[address] [address] Hemoglobin (Bld) [Mass/Vol] 13.4 g/dL Normal 12.0-16.0 [facility] Comment on above: Performed By: #### 2 164999, 2656430, 3692712, 3244919, 14199716, 92073303, 9509357 ####[address] [address] MCH (RBC) [Entitic mass] 28.2 pg Normal 27.0-34.0 [facility] Comment on above: Performed By: #### 2 896230, 2809212, 0133686, 8943398, 93429022, 58554077, 9355782 ####[address] [address] MCHC (RBC) [Mass/Vol] 32.7 g/dL Normal 31.4-36.0 [facility] Comment on above: Performed By: #### 2 658102, 8130027, 5399335, 5556106, 88779700, 92658120, 7536377 ####[facility] [address] [place] [address] MCV (RBC) [Entitic vol] 86.3 fL Normal 80.0-100.0 [facility] Comment on above: Performed By: #### 2 889417, 4377731, 8634897, 0508888, 54260103, 26193204, 3754626 ####[facility] [address] [place] [address] Platelet mean volume (Bld) [Entitic vol] 7.2 fL Normal 6.4-10.8 [facility] Comment on above: Performed By: #### 2 398784, 7529397, 5262799, 8890206, 72795292, 91336204, 0235355 ####[facility] [address] [place] [address] Platelets (Bld) [#/Vol] 414.0 E9/L Normal 150.0-500.0 [facility] Comment on above: Performed By: #### 2 504850, 4591686, 7096683, 0671566, 14256043, 44563942, 1996881 ####[facility] [address] [place] [address] RBC (Bld) [#/Vol] 4.8 E12/L Normal 4.3-5.9 [facility] Comment on above: Performed By: #### 2 794210, 3021401, 5232322, 2216764, 92262280, 69017570, 6210586 ####[facility] [address] [place] [address] WBC corrected for nucl RBC Auto (Bld) [#/Vol] 21.6 E9/L High 4.0-11.0 [facility] Comment on above: Result Comment: Slid e reviewed by ADBert Performed By: #### 2 740419, 0990776, 0765107, 6624902, 72774914, 52389976, 5341957 ####[facility] [address] [place] [address] CT Abdomen/Pelvis w/ Contras ton 06-21-2022 CT [...] 300 Contrast amount in ml's: 100 Normal [facility] Consent for Treatmenton 05-25 Consent for Treatment [id number] #1.00CD:127 Normal [facility] Discharge Instructionson Discharge Instructions [id number] 304 [id number]#1.00CD:127 Normal [facility] ED Clinical Summaryon 2022 ED Clinical Summary [place] [id number] ED Clinical Summary Person Information Name: RUTH CORDERO/[place] Age: 27 Years : 1995 Sex: Female Language: Ugandan PCP: Keith GARCIA DO Marital Status: Single [...] 06/21/2022 05:06:52 ADDRESS: [address] [facility] [id number] PHYS DOC NOTES: MEDICAL INFORMATION: Prescriptions Given: New Medications [id number], [address] [place] [id number], [phone] naproxen (naproxen 500 mg oral enteric coated tablet) 1 Tablets By Mouth 2 times a day as needed Pain. Refills: 0. ondansetron (Zofran ODT 4 mg Tab-Dis) 1 Tablets By Mouth every 8 hours as needed Nausea/Vomiting. Refills: 0. PATIENT EDUCATION INFORMATION: Instructions: Abdominal Pain, Adult Follow up: With: Address: When: Keith GARCIA [address] [place] [address] Business (1) In 3 days 06/24/2022 DIAGNOSIS: Abdominal pain, acute Normal [facility] ED Note-Physicianon 06-22-19 ED Note-Physician Basic [...] and Complexity of Problems Differential Diagnosis: [] [facility] Data External documents reviewed: N/A [...] Pain, # 14 tab(s), Refills(s) 0, Pharmacy: [id number], 160, cm, 06/20/22 23:30:00 EDT, Height/Length [...] Nausea/Vomiting, # 16 tab(s), Refills(s) 0, Pharmacy: [id number], 160, cm, 06/20/22 23:30:00 EDT, Height/Length [...] Medications Administered (more content not included)... Normal [facility] Comment on above: Result Comment: Elec [...] these instructions at home: Medicines ? Take jcxh-xud-lazfdrm and prescription medicines only as told by [...] your condition for any changes. ? Take zhwh-uut-rrnumcs and prescription medicines only as told by [...] provider. Document Revised: 03/30/2020 Document Reviewed: 06/20/2019 [employer] Patient Education ? 2022 [employer] Normal [facility] ED Patient Summaryon 023 ED Patient Summary [place] [id number] Patient Discharge Instructions Person Information Name: RUTH CORDERO Age: 27 Years Arrival Date: 06/20/2022 23:19:15 Discharge Diagnosis: Abdominal pain, acute Primary Care Physician: Keith GARCIA DO Provider Information Primary Provider: Ritesh Pascal DO Advanced Environmental Science Professor:None The exam and treatment you received in the Emergency Department were for an urgent problem and are not intended as complete care. It is important that you follow up with a doctor, nurse practitioner, or physician?s clinic office assistant for ongoing care. If your symptoms [...] Follow-up Instructions: With: Address: When: Keith GARCIA [address] [place] [address] Business (1) In 3 days 06/24/2022 In the event that this physician does not participate in your insurance network, please consult with your insurance company to find a nearby participating provider. Patient Education Materials: Abdominal Pain, Adult A MESSAGE TO ALL PATIENTS REGARDING OPIOIDS PRESCRIPTION OPIOIDS: WHAT YOU NEED TO KNOW Prescription opioids can be used to help relieve rtwbmyvw-vn-udpqtx pain and are often prescribed following a [...] be struggling with addiction, tell your health career and guidance counselor and ask for guidance or call [facility] National Helpline at 5-136-977-Feed.fm. h Source: [facility] (more content not included)... Normal [facility] Hep Func Panelon 06-21-2022 Bilirubin.indirect [Mass or moles/Vol] UTC Abnormal 0.1-0.9 [facility] Comment on above: Result Comment: Resu lt verified by Discern Rule. Performed result UTC (Unable to Calculate) was sent as an Alpha code due the inability to calculate a valid numeric value. Performed By: #### 2 328174, 9303919, 5787301, 0893432, 48086190, [id number], 4679960 ####[facility] [address] [place] [address] Albumin [Mass/Vol] 4.1 g/dL Normal 3.3-5.0 [facility] Comment on above: Performed By: #### 2 816756, 2812169, 4851824, 3150101, 00961776, 37558626, 6931656 ####[facility] [address] [place] [address] Albumin/Globulin (S) [Mass conc ratio] 1.1 Normal 1.1-2.2 [facility] Comment on above: Performed By: #### 2 939040, 5160666, 3513333, 4555283, 48713940, 38285371, 6632057 ####[facility] [address] [place] [address] ALP [Catalytic activity/Vol] 86 Int._Unit/L Normal 21-98 [facility] Comment on above: Performed By: #### 2 082180, 8745904, 9940235, 0144648, 51894388, 87454926, 2866817 ####[address] [address] ALT No additional P-5'-P [Catalytic activity/Vol] 16 Int._Unit/L Normal 6-46 [facility] Comment on above: Performed By: #### 2 662897, 0235166, 9378218, 1479644, 46578785, 89191434, 9850195 ####[facility] [address] [place] [address] AST [Catalytic activity/Vol] 22 Int._Unit/L Normal 5-43 [facility] Comment on above: Performed By: #### 2 201054, 9538481, 2255486, 1461719, 31443462, 26723873, 7645967 ####[facility] [address] [place] [address] Bilirubin [Mass/Vol] 0.5 mg/dL Normal 0.0-1.1 [facility] Comment on above: Performed By: #### 2 986302, 7204158, 9675451, 6436759, 31562210, 54196733, 0006428 ####[address] [place] [address] Globulin (S) [Mass/Vol] 3.6 g/dL Normal 1.4-4.0 [facility] Comment on above: Performed By: #### 2 141399, 8066094, 8984055, 5400908, 72089510, 69518359, 7912827 ####[facility] [address] [place] [address] Protein [Mass/Vol] 7.7 g/dL Normal 6.0-7.8 [facility] Comment on above: Performed By: #### 2 798546, 2589011, 1007250, 3938874, 83941143, 43019160, 6980212 ####[facility] [address] [place] [address] Bilirubin.direct [Mass/Vol] mg/dL Normal 0.1-0.4 [facility] Comment on above: Performed By: #### 2 763191, 6109668, 6951713, 7637786, 75260485, 99789414, 3660962 ####[address] [address] Lipase Levelon 06-21-2022 Lipase [Catalytic activity/Vol] 32 U/L Normal 13-58 [facility] Comment on above: Performed By: #### 2 599091, 0305428, 6808266, 0689721, 21727878, 03210310, 0510822 ####[address] [address] RAD - Preliminary Cat Scan R eporton 06-21-2022 RAD - Preliminary Cat Scan Report [id number] 9#1.00CD:127 Normal [facility] RAD - Preliminary Cat Scan Report [id number] 5#1.00CD:127 Normal [facility] UA With Cult Reflexon 2022 Bilirubin Ql (U) Negative Normal Negative [facility] Comment on above: Performed By: #### 1 [id number] ####[address] [address] Clarity (U) CLEAR Normal Clear [facility] Comment on above: Performed By: #### 1 [id number] ####[address] [place] [address] Color (U) STRAW Invalid Interpretation Code [facility] Comment on above: Performed By: #### 1 [id number] ####[address] [address] Epithelial cells.squamous LM.HPF (Urine sed) [#/Area] 0-2 Normal 0-2 [facility] Comment on above: Performed By: #### 1 [id number] ####[address] [address] Glucose Test strip (U) [Mass/Vol] Negative Normal Negative [facility] Comment on above: Performed By: #### 1 [id number] ####[address] [address] Hemoglobin Ql (U) TRACE Abnormal Negative [facility] Comment on above: Performed By: #### 1 [id number] ####[address] [address] Ketones (U) [Mass/Vol] TRACE Invalid Interpretation Code Negative [facility] Comment on above: Performed By: #### 1 [id number] ####[address] [address] [place].plasma/[place] .RBC (Bld) [Mass ratio] 0-3 Normal 0-3 [facility] Comment on above: Performed By: #### 1 [id number] ####[address] [address] Nitrite Ql (U) Negative Normal Negative [facility] Comment on above: Performed By: #### 1 [id number] ####[address] [address] pH (U) 8.0 [pH] Invalid Interpretation Code 5.0-9.0 [facility] Comment on above: Performed By: #### 1 [id number] ####[address] [address] Protein (U) [Mass/Vol] Negative Normal Negative [facility] Comment on above: Performed By: #### 1 [id number] ####[facility] [address] [place] [address] Specific gravity (U) [Rel density] 1.010 Invalid Interpretation Code 1.005-1.030 [facility] Comment on above: Performed By: #### 1 [id number] ####[facility] [address] [place] [address] Type of Urine collection method Clean Catch Normal [facility] Comment on above: Performed By: #### 1 [id number] ####[facility] [address] [place] [address] Urobilinogen Qn (U) 0.2 {Hima'U}/dL Normal 0.0-1.0 [facility] Comment on above: Performed By: #### 1 [id number] ####[address] [address] WBC Auto Ql (U) Negative Normal Negative [facility] Comment on above: Performed By: #### 1 [id number] ####[facility] [address] [place] [address] WBC LM.HPF (Urine sed) [#/Area] 0-5 Normal 0-5 [facility] Comment on above: Performed By: #### 1 [id number] ####[address] [address] URINALYSISOrdered By: Tom Jon on 06-21-2022 Bilirubin Ql (U) Negative (06/21/22 1:12 AM) Normal Negative [facility] UA Auto SS Clarity (U) Clear (06/21/22 1:12 AM) Normal Clear [facility] UA Auto SS Color (U) STRAW Invalid Interpretation Code FT UA Auto SS Epithelial cells.squamous LM.HPF (Urine [...] Interpretation Code Negative [facility] UA Auto SS [place].plasma/[place] .RBC (Bld) [Mass ratio] 0-3 /HPF Normal [...] AM) Invalid Interpretation Code 1.005 - 1.030 [facility] UA Auto SS UA Spec Desc Clean Catch (06/21/22 1:12 AM) Normal [facility] UA Auto SS Urobilinogen Qn (U) 0.8323773 {Hima'U}/dL Normal 0.0 - 1.0 EU/dL FT UA Auto SS WBC Auto Ql (U) Negative (06/21/22 1:12 AM) Normal Negative [facility] UA Auto SS WBC LM.HPF (Urine sed) [#/Area] 0-5 /HPF Normal 0-5/HPF [facility] UA Auto SS US Pelvis Non-OB Completeon [...] Transabdominal Ultrasound Performed Uterus Position Anteverted Normal [facility] eGFRon 06-21-2022 GFR/1.73 sq M.predicted among non-blacks MDRD (S/P/Bld) [Vol rate/Area] 123 mL/min/1.73 m2 Normal >=59 [facility] Comment on above: Order Comment: Order added by Discern Expert. Result Comment: Clinical Transplant Coordinator saranya kidney disease could be indicated at eGFR's of less than 60 mL/min/1.73m2. Kidney failure is indicated at less than 15 mL/min/1.73m2. Performed By: #### 2 [id number] ####[facility] [address] [place] [address] CHEMISTRYOrdered By: SYSTEM SYSTEM on 06-20-2022 Albumin [...] 123 mL/min/1.73 m2 Normal >=59mL/min/1 .73 m2 [facility] Chem S Globulin (S) [Mass/Vol] 3.6 g/dL [...] ratio] 17 mg/mg Normal 10 - 20 FT Remisol HEMATOLOGYOrdered By: SYSTEM SYSTEM on 06-20-2022 [...] 19.5 % Normal 14.0 - 50.0 % FT HemeAutoSS Lymphocytes/Leukocytes Auto (Bld) [Pure # fraction] 4.2 E9/L High 1.0 - 4.0 E9/L [facility] HemeAutoSS Monocytes/100 WBC (Bld) 4.9 % Normal 4.0 - 14.0 % [facility] HemeAutoSS Monocytes/Leukocytes Auto (Bld) [Pure # fraction] 1.1 E9/L High 0.2 - 1.0 E9/L [facility] HemeAutoSS Neutrophils/100 WBC (Bld) 74.0 % Normal 36.0 - 75.0 % [facility] HemeAutoSS Neutrophils/Leukocytes Auto (Bld) [Pure # fraction] 15.9 E9/L High 2.0 - 7.5 E9/L FT HemeAutoSS HEMATOLOGYOrdered By: Alliso n Danay on 06-20-2022 Erythrocyte distribution width (RBC) [Ratio] 12.3 % Normal 10.9 - 14.2 % FT HemeAutoSS Hematocrit (Bld) [Volume fraction] 41.0 % Normal 34.0 - 46.0 % FT HemeAutoSS Hemoglobin (Bld) [Mass/Vol] 13.4 g/dL Normal 12.0 - 16.0 gm/dL [facility] HemeAutoSS MCH (RBC) [Entitic mass] 28.2 pg Normal 27.0 - 34.0 pg FT HemeAutoSS MCHC (RBC) [Mass/Vol] 32.7 g/dL Normal [...] hCG Ql Negative (06/20/22 11:40 PM) Normal [facility] Man Sero CANNABINOID (THC) CONFIRMATI ON, URINEon 11-19-2021 Cannabinoid Positive Abnormal [facility] Comment on above: Performed By: #### T HCCONF #### [facility] [address] [address] [address] Nannette Shafer THC GC/MS Conf 629 ng/mL Normal Cutoff=10 [facility] Comment on above: Performed By: #### T HCCONF #### [facility] [address] [address] [address] Nannette Baker CBC AUTO DIFFon 11-13-2021 BASO # 0.1 103/ul Normal 0.0-0.1 [facility] Comment on above: Performed By: #### C BC #### [facility] [address] [address] [address] Nannette Baker Basophils/100 WBC (Bld) 0.5 % Normal 0.2-2.[address] [facility] Comment on above: Performed By: #### C BC #### [facility] [address] [address] [address] Nannette Baker EO # 0.2 103/ul Normal 0.0-0.7 [facility] Comment on above: Performed By: #### C BC #### [facility] [address] [address] [address] Nannette Baker Eosinophils/100 WBC (Bld) 1.2 % Normal 0.9-7.0 [facility] Comment on above: Performed By: #### C BC #### [facility] [address] [place] [address] Dr. Nannette Baker Erythrocyte distribution width (RBC) [Ratio] 12.2 % Normal 11.0-15.0 [facility] Comment on above: Performed By: #### C BC #### [facility] [address] [place] [address] Dr. Nannette Baker Hematocrit (Bld) [Volume fraction] 33.4 % Critically low 36.0-48.0 [facility] Comment on above: Performed By: #### C BC #### [facility] [address] [place] [address] Dr. Nannette Baker Hemoglobin (Bld) [Mass/Vol] 11.5 g/dL Critically low 12.0-16.0 [facility] Comment on above: Performed By: #### C BC #### [facility] [address] [place] [address] Dr. Nannette Baker IG # 0.06 10e3/ul Critically high 0.00-0.03 [facility] Comment on above: Performed By: #### C BC #### [facility] [address] [place] [address] Dr. Nannette Baker IG % 0.5 % Normal 0.0-0.[address] [facility] Comment on above: Performed By: #### C BC #### [facility] [address] [place] [address] Dr. Nannette Baker LYMPH # 2.3 103/ul Normal 1.2-3.[address] [facility] Comment on above: Performed By: #### C BC #### [facility] [address] [place] [address] Dr. Nannette Baker Lymphocytes/100 WBC (Bld) 17.5 % Critically low 20.5-60.0 [facility] Comment on above: Performed By: #### C BC #### [facility] [address] [place] [address] Dr. Nannette Baker MANUAL DIFF REQ NO Normal [facility] Comment on above: Performed By: #### C BC #### [facility] [address] [place] [address] Dr. Nannette Baker MCH (RBC) [Entitic mass] 31.2 pg Normal 26.7-34.0 [facility] Comment on above: Performed By: #### C BC #### [facility] [address] [place] [address] Dr. Nannette Baker MCHC (RBC) [Mass/Vol] 34.4 g/dL Normal 29.9-35.2 [facility] Comment on above: Performed By: #### C BC #### [facility] [address] [place] [address] Dr. Nannette Baker MCV (RBC) [Entitic vol] 90.5 fL Normal 81.0-99.0 [facility] Comment on above: Performed By: #### C BC #### [facility] [address] [place] [address] Dr. Nannette Baker MONO # 0.8 103/ul Normal 0.3-0.8 [facility] Comment on above: Performed By: #### C BC #### [facility] [address] [place] [address] Dr. Nannette Baker Monocytes/100 WBC (Bld) 6.0 % Normal 1.7-12.[address] [facility] Comment on above: Performed By: #### C BC #### [facility] [address] [place] [address] Dr. Nannette Baker NEUT # 9.7 103/ul Critically high 1.4-6.5 [facility] Comment on above: Performed By: #### C BC #### [facility] [address] [place] [address] Dr. Nannette Baker Neutrophils/100 WBC (Bld) 74.3 % Normal 43.0-75.[address] [facility] Comment on above: Performed By: #### C BC #### [facility] [address] [place] [address] Dr. Nannette Baker Platelet mean volume (Bld) [Entitic vol] 9.4 fL Critically low 9.5-13.5 [facility] Comment on above: Performed By: #### C BC #### [facility] [address] [place] [address] Dr. Nannette Baker PLT 247 103/ul Normal 150-[address] [facility] Comment on above: Performed By: #### C BC #### [facility] [address] [place] [address] Dr. Nannette Baker RBC 3.69 106/ul Critically low 4.20-5.40 [facility] Comment on above: Performed By: #### C BC #### [facility] [address] [place] [address] Dr. Nannette Baker WBC 13.0 103/ul Critically high 4.0-11.0 [facility] Comment on above: Performed By: #### C BC #### [facility] [address] [place] [address] Dr. Nannette Baker CBC AUTO DIFFon 11-12-2021 BASO # 0.0 103/ul Normal 0.0-0.1 [facility] Comment on above: Performed By: #### T HCCONF #### [facility] [address] [place] [address] Dr. Nannette Baker Basophils/100 WBC (Bld) 0.3 % Normal 0.2-2.0 [facility] Comment on above: Performed By: #### T HCCONF #### [facility] [address] [place] [address] Dr. Nannette Baker EO # 0.1 103/ul Normal 0.0-0.7 [facility] Comment on above: Performed By: #### T HCCONF #### [facility] [address] [place] [address] Dr. Nannette Baker Eosinophils/100 WBC (Bld) 1.2 % Normal 0.9-7.0 [facility] Comment on above: Performed By: #### T HCCONF #### [facility] [address] [address] [address] Nannette Baker Erythrocyte distribution width (RBC) [Ratio] 12.0 % Normal 11.0-15.0 [facility] Comment on above: Performed By: #### T HCCONF #### [facility] [address] [place] [address] Dr. Nannette Baker Hematocrit (Bld) [Volume fraction] 33.0 % Critically low 36.0-48.0 [facility] Comment on above: Performed By: #### T HCCONF #### [facility] [address] [place] [address] Dr. Nannette Baker Hemoglobin (Bld) [Mass/Vol] 11.1 g/dL Critically low 12.0-16.0 [facility] Comment on above: Performed By: #### T HCCONF #### [facility] [address] [place] [address] Dr. Nannette Baker IG # 0.05 10e3/ul Critically high 0.00-0.03 [facility] Comment on above: Performed By: #### T HCCONF #### [facility] [address] [place] [address] Dr. Nannette Baker IG % 0.5 % Normal 0.0-0.5 [facility] Comment on above: Performed By: #### T HCCONF #### [facility] [address] [place] [address] Dr. Nannette Baker LYMPH # 1.8 103/ul Normal 1.2-3.8 [facility] Comment on above: Performed By: #### T HCCONF #### [facility] [address] [place] [address] Dr. Nannette Baker Lymphocytes/100 WBC (Bld) 16.4 % Critically low 20.5-60.0 [facility] Comment on above: Performed By: #### T HCCONF #### [facility] [address] [place] [address] Dr. Nannette Baker MANUAL DIFF REQ NO Normal [facility] Comment on above: Performed By: #### T HCCONF #### [facility] [address] [place] [address] Dr. Nannette Baker MCH (RBC) [Entitic mass] 30.7 pg Normal 26.7-34.0 [facility] Comment on above: Performed By: #### T HCCONF #### [facility] [address] [place] [address] Dr. Nannette Baker MCHC (RBC) [Mass/Vol] 33.6 g/dL Normal 29.9-35.[address] [facility] Comment on above: Performed By: #### T HCCONF #### [facility] [address] [place] [address] Dr. Nannette Baker MCV (RBC) [Entitic vol] 91.4 fL Normal 81.0-99.0 [facility] Comment on above: Performed By: #### T HCCONF #### [facility] [address] [place] [address] Dr. Nannette Baker MONO # 0.6 103/ul Normal 0.3-0.8 [facility] Comment on above: Performed By: #### T HCCONF #### [facility] [address] [place] [address] Dr. Nannette Baker Monocytes/100 WBC (Bld) 5.7 % Normal 1.7-12.0 [facility] Comment on above: Performed By: #### T HCCONF #### [facility] [address] [place] [address] Dr. Nannette Baker NEUT # 8.4 103/ul Critically high 1.4-6.5 [facility] Comment on above: Performed By: #### T HCCONF #### [facility] [address] [place] [address] Dr. Nannette Baker Neutrophils/100 WBC (Bld) 75.9 % Critically high 43.0-75.0 [facility] Comment on above: Performed By: #### T HCCONF #### [facility] [address] [place] [address] Dr. Nannette Baker Platelet mean volume (Bld) [Entitic vol] 9.4 fL Critically low 9.5-13.[address] [facility] Comment on above: Performed By: #### T HCCONF #### [facility] [address] [place] [address] Dr. Nannette Baker PLT 230 103/ul Normal 150-[address] [facility] Comment on above: Performed By: #### T HCCONF #### [facility] [address] [address] [address] Nannette Baker RBC 3.61 106/ul Critically low 4.20-5.40 [facility] Comment on above: Performed By: #### T HCCONF #### [facility] [address] [place] [address] Dr. Nannette Baker WBC 11.1 103/ul Critically high 4.0-11.0 [facility] Comment on above: Performed By: #### T HCCONF #### [facility] [address] [place] [address] Dr. Nannette Baker Covid-19 PCR ([facility])on 10-25 SARS-CoV-2 (COVID-19) RNA CHARLENE+probe Ql (Unsp spec) Not detected Normal NOT DETECTED [facility] Comment on above: Result Comment: When [...] for this test is supported by the Blue of Health and Human Service's declaration that [...] used). Performed By: #### C VDTBH #### [facility] [address] [address] [address] Nannette Baker DRUG SCREEN RAPID (URINE)on 11-12-2021 AMP Negative Normal NEGATIVE [facility] Comment on above: Performed By: #### D RUGRPD #### [facility] [address] [address] [address] Nannette Baker BAR Negative Normal NEGATIVE [facility] Comment on above: Performed By: #### D RUGRPD #### [facility] [address] [address] [address] Nannette Baker BUP Negative Normal NEGATIVE [facility] Comment on above: Performed By: #### D RUGRPD #### [facility] [address] [place] [address] Dr. Nannette Baker BZO Negative Normal NEGATIVE [facility] Comment on above: Performed By: #### D RUGRPD #### [facility] [address] [place] [address] Dr. Nannette Baker SORAIDA Negative Normal NEGATIVE [facility] Comment on above: Performed By: #### D RUGRPD #### [facility] [address] [address] [address] Nannette Baker CUT-OFFS SEE BELOW Normal [facility] Comment on above: Result Comment: AMP [...] ng/mL Performed By: #### D RUGRPD #### [facility] [address] [place] [address] Dr. Nannette Baker DRUG CUT HEADER DRUG CLASS TEST SYSTEM CUT-OFF CONCENTRATIONS ARE FOLLOWS: Normal [facility] Comment on above: Performed By: #### D RUGRPD #### [facility] [address] [address] [address] Nannette Baker mAMP Negative Normal NEGATIVE [facility] Comment on above: Performed By: #### D RUGRPD #### [facility] [address] [place] [address] Dr. Nannette Baker MTD Negative Normal NEGATIVE [facility] Comment on above: Performed By: #### D RUGRPD #### [facility] [address] [place] [address] Dr. Nannette Baker OPI Negative Normal NEGATIVE [facility] Comment on above: Performed By: #### D RUGRPD #### [facility] [address] [place] [address] Dr. Nannette Baker OXY Negative Normal NEGATIVE [facility] Comment on above: Performed By: #### D RUGRPD #### [facility] [address] [place] [address] Dr. Nannette Baker PCP Negative Normal NEGATIVE [facility] Comment on above: Performed By: #### D RUGRPD #### [facility] [address] [place] [address] Dr. Nannette Baker PPX Negative Normal NEGATIVE [facility] Comment on above: Performed By: #### D RUGRPD #### [facility] [address] [place] [address] Dr. Nannette Baker TCA Negative Normal NEGATIVE [facility] Comment on above: Performed By: #### D RUGRPD #### [facility] [address] [place] [address] Dr. Nannette Baker THC Positive Abnormal NEGATIVE [facility] Comment on above: Performed By: #### D RUGRPD #### [facility] [address] [place] [address] Dr. Nannette Baker TYPE AND SCREENon 11-12-2021 TYPE AND SCREEN Negative Normal [facility] Comment on above: Performed By: #### T NS #### [facility] [address] [place] [address] Dr. Nannette Baker GROUP B STREP CULTUREon 09-0 S. agalactiae Ag Ql (Unsp spec) Isolate [...] S F Tetracycline >=16 R F Normal [facility] Comment on above: Performed By: #### [facility] #### [facility] [address] [place] [address] Dr. Nannette Baker PREG GROWTHon 10-22-2021 US PREG GROWTH EXAMINATION: [...] SAMIR SHANNON Date: 2021-10-22 16:[address] [facility] US PREG GROWTHon 09-25-2021 US PREG [...] SAMIR SHANNON Date: 2021-09-25 16:[address] [facility] CBC AUTO DIFFon 08-27-2021 BASO # 0.0 103/ul Normal 0.0-0.1 [facility] Comment on above: Performed By: #### C VDTBH #### [facility] [address] [address] [address] Nannette Baker Basophils/100 WBC (Bld) 0.3 % Normal 0.2-2.0 [facility] Comment on above: Performed By: #### C VDTBH #### [facility] [address] [address] [address] Nannette Baker EO # 0.1 103/ul Normal 0.0-0.7 [facility] Comment on above: Performed By: #### C VDTBH #### [facility] [address] [address] [address] Nannette Baker Eosinophils/100 WBC (Bld) 0.8 % Critically low 0.9-7.0 [facility] Comment on above: Performed By: #### C VDTBH #### [facility] [address] [address] [address] Nannette Baker Erythrocyte distribution width (RBC) [Ratio] 11.9 % Normal 11.0-15.0 [facility] Comment on above: Performed By: #### C VDTBH #### [facility] [address] [address] [address] Nannette Baker Hematocrit (Bld) [Volume fraction] 33.3 % Critically low 36.0-48.0 [facility] Comment on above: Performed By: #### C VDTBH #### [facility] [address] [place] [address] Dr. Nannette Baker Hemoglobin (Bld) [Mass/Vol] 11.3 g/dL Critically low 12.0-16.0 [facility] Comment on above: Performed By: #### C VDTBH #### [facility] [address] [place] [address] Dr. Nannette Baker IG # 0.07 10e3/ul Critically high 0.00-0.03 [facility] Comment on above: Performed By: #### C VDTBH #### [facility] [address] [place] [address] Dr. Nannette Baker IG % 0.6 % Critically high 0.0-0.5 [facility] Comment on above: Performed By: #### C VDTBH #### [facility] [address] [place] [address] Dr. Nannette Baker LYMPH # 1.3 103/ul Normal 1.2-3.8 [facility] Comment on above: Performed By: #### C VDTBH #### [facility] [address] [place] [address] Dr. Nannette Baker Lymphocytes/100 WBC (Bld) 10.8 % Critically low 20.5-60.0 [facility] Comment on above: Performed By: #### C VDTBH #### [facility] [address] [place] [address] Dr. Nannette Baker MANUAL DIFF REQ NO Normal [facility] Comment on above: Performed By: #### C VDTBH #### [facility] [address] [place] [address] Dr. Nannette Baker MCH (RBC) [Entitic mass] 32.1 pg Normal 26.7-34.0 [facility] Comment on above: Performed By: #### C VDTBH #### [facility] [address] [place] [address] Dr. Nannette Baker MCHC (RBC) [Mass/Vol] 33.9 g/dL Normal 29.9-35.2 [facility] Comment on above: Performed By: #### C VDTBH #### [facility] [address] [place] [address] Dr. Nannette Baker MCV (RBC) [Entitic vol] 94.6 fL Normal 81.0-99.[address] [facility] Comment on above: Performed By: #### C VDTBH #### [facility] [address] [place] [address] Dr. Nannette Baker MONO # 0.5 103/ul Normal 0.3-0.[address] [facility] Comment on above: Performed By: #### C VDTBH #### [facility] [address] [place] [address] Dr. Nannette Baker Monocytes/100 WBC (Bld) 4.5 % Normal 1.7-12.0 [facility] Comment on above: Performed By: #### C VDTBH #### [facility] [address] [place] [address] Dr. Nannette Baker NEUT # 10.1 103/ul Critically high 1.4-6.5 [facility] Comment on above: Performed By: #### C VDTBH #### [facility] [address] [place] [address] Dr. Nannette Baker Neutrophils/100 WBC (Bld) 83.0 % Critically high 43.0-75.0 [facility] Comment on above: Performed By: #### C VDTBH #### [facility] [address] [place] [address] Dr. Nannette Baker Platelet mean volume (Bld) [Entitic vol] 9.2 fL Critically low 9.5-13.[address] [facility] Comment on above: Performed By: #### C VDTBH #### [facility] [address] [place] [address] Dr. Nannette Baker PLT 233 103/ul Normal 150-[address] [facility] Comment on above: Performed By: #### C VDTBH #### [facility] [address] [place] [address] Dr. Nannette Baker RBC 3.52 106/ul Critically low 4.20-5.40 [facility] Comment on above: Performed By: #### C VDTBH #### [facility] [address] [place] [address] Dr. Nannette Baker WBC 12.1 103/ul Critically high 4.0-11.0 [facility] Comment on above: Performed By: #### C VDTBH #### [facility] [address] [place] [address] Dr. Nannette Baker GLUCOSE - 1HRon 08-23-2021 Glucose [Mass/Vol] 104 mg/dL Normal 74-106 [facility] Comment on above: Performed By: #### T HCCONF #### [facility] [address] [place] [address] Dr. Nannette Baker CHLAMYDIA/GONOCOCCUS CHARLENE ( AB/URINE/PAPon 08-02-2021 Chlamydia trachomatis, CHARLENE Negative Normal Negative [facility] Comment on above: Performed By: #### T HCCONF #### [facility] [address] [place] [address] Dr. Nannette Baker Neisseria gonorrhoeae, CHARLENE Negative Normal Negative [facility] Comment on above: Performed By: #### T HCCONF #### [facility] [address] [place] [address] Dr. Nannette Baker VAGINITIS/VAGINOSIS DNA PROB Dipak 08-01-2021 Niesha species Negative Normal Negative [facility] Comment on above: Performed By: #### V AGINT #### [facility] [address] [place] [address] Dr. Nannette Baker Gardnerella vaginalis Positive Abnormal Negative [facility] Comment on above: Performed By: #### V AGINT #### [facility] [address] [place] [address] Dr. Nannette Baker Trichomonas vaginalis Negative Normal Negative [facility] Comment on above: Performed By: #### V AGINT #### [facility] [address] [place] [address] Dr. Nannette Baker AFP MATERNAL FOR SPINA BIFID Aon 07-04-2021 AFP MoM 1.32 Normal [facility] Comment on above: Performed By: #### A FPMAT #### [facility] [address] [address] [address] Nannette Baker AFP Value 83.8 ng/mL Normal [facility] Comment on above: Performed By: #### A FPMAT #### [facility] [id number] Nannette Baker AFP, Serum for Spina Bifida Report Normal [facility] Comment on above: Performed By: #### A FPMAT #### [facility] [address] [address] [address] Nannette Baker Comment Comment Normal [facility] Comment on above: Result Comment: Jamar Muñiz, Ph.D., [facility] Director . References: Available Upon Request. . Multiples Of Median Cutoffs For AFP Elevations Springer 2.5 Black 2.8 IDD 2.0 Twins 4.5 Abbreviation Definitions IDD - Insulin Dep Diabetes OSBR - Open Spina Bifida Risk . For further inquiries contact [employer] at [phone]. Performed By: #### A FPMAT #### [facility] [address] [address] [address] Nannette Patrick Age Collection Date 20.0 weeks [facility] Comment on above: Performed By: #### A FPMAT #### [facility] [id number] Nannette Baker Gestat, Age Based on MARIO [facility] Comment on above: Result Comment: 10/25 Recalculations are not recommended when gestational dating by LMP and ultrasound are within 10 days. Performed By: #### A FPMAT #### [facility] [id number] Nannette Baker Insulin Dep Diabetes No Normal [facility] Comment on above: Performed By: #### A FPMAT #### [facility] [address] [address] [address] Nannette Baker Interpretation Comment Normal [facility] Comment on above: Result Comment: Inte [...] Customer Services to discuss available options. The [employer] recommends amniocentesis be offered to women age 35 and older. Performed By: #### A FPMAT #### [facility] [address] [place] [address] Dr. Nannette Baker [age] Normal [facility] Comment on above: Performed By: #### A FPMAT #### [facility] [address] [place] [address] Dr. Nannette Baker Multiple Gestation No Normal [facility] Comment on above: Performed By: #### A FPMAT #### [facility] [address] [place] [address] Dr. Nannette Baker OSBR Risk 1 IN 4529 Normal [facility] Comment on above: Performed By: #### A FPMAT #### [facility] [address] [place] [address] Dr. Nannette Baker PDF . [facility] Comment on above: Performed By: #### A FPMAT #### [facility] [address] [place] [address] Dr. Nannette Baker Race Normal [facility] Comment on above: Performed By: #### A FPMAT #### [facility] [address] [place] [address] Dr. Nannette Baker Test Results: Negative Normal [facility] Comment on above: Performed By: #### A FPMAT #### [facility] [address] [place] [address] Dr. Nannette Baker US PREG ANATOMY SINGLEon [...] SAMIR SHANNON Date: 2021-07-02 12:[address] [facility] HEP B SURFACE ANTIGEN SCREEN on 05-02-2021 HBsAg Screen Negative Normal Negative [facility] Comment on above: Performed By: #### H BSANS #### [facility] [address] [address] [address] Nannette Baker HEPATITIS C VIRUS AB W/ REFL EX QUANTon 05-02-2021 HCV AB <0.1 Normal 0.0-0.9 [facility] Comment on above: Performed By: #### T HCCONF #### [facility] [address] [address] [address] Nannette Baker Interpretation: Comment Normal [facility] Comment on above: Result Comment: Nega tive Not infected with HCV, unless recent infection is suspected or other evidence exists to indicate HCV infection. Performed By: #### T HCCONF #### [facility] [address] [place] [address] Dr. Nannette Baker HIV 1 AND 2 WITH REFLEXon HIV Screen 4th Generation wRfx Non-Reactive Normal Non Reactive [facility] Comment on above: Result Comment: HIV Negative HIV-1/HIV-2 antibodies and HIV-1 p24 antigen were NOT detected. There is no laboratory evidence of HIV infection. Performed By: #### C VDTBH #### [facility] [address] [place] [address] Dr. Nannette Baker RPR QUANTon 05-02-2021 Rapid Plasma Reagin, Quant Non-Reactive Normal NonRea<1:1 [facility] Comment on above: Performed By: #### C VDTBH #### [facility] [address] [place] [address] Dr. Nannette Baker RUBELLA AB IGGon 05-02-2021 Rubella Antibodies, IgG 2.65 index Normal Immune >0.[address] [facility] Comment on above: Result Comment: Non- immune <0.90 Equivocal 0.90 - 0.99 Immune >0.99 Performed By: #### R UBIGG #### [facility] [address] [place] [address] Dr. Nannette Baker CBC AUTO DIFFon 04-30-2021 BASO # 0.1 103/ul Normal 0.0-0.[address] [facility] Comment on above: Performed By: #### T HCCONF #### [facility] [address] [place] [address] Dr. Nannette Baker Basophils/100 WBC (Bld) 0.5 % Normal 0.2-2.[address] [facility] Comment on above: Performed By: #### T HCCONF #### [facility] [address] [place] [address] Dr. Nannette Baker EO # 0.2 103/ul Normal 0.0-0.[address] [facility] Comment on above: Performed By: #### T HCCONF #### [facility] [address] [place] [address] Dr. Nannette Baker Eosinophils/100 WBC (Bld) 1.5 % Normal 0.9-7.0 [facility] Comment on above: Performed By: #### T HCCONF #### [facility] [address] [place] [address] Dr. Nannette Baker Erythrocyte distribution width (RBC) [Ratio] 11.9 % Normal 11.0-15.0 [facility] Comment on above: Performed By: #### T HCCONF #### [facility] [address] [place] [address] Dr. Nannette Baker Hematocrit (Bld) [Volume fraction] 33.9 % Critically low 36.0-48.0 [facility] Comment on above: Performed By: #### T HCCONF #### [facility] [address] [place] [address] Dr. Nannette Baker Hemoglobin (Bld) [Mass/Vol] 11.9 g/dL Critically low 12.0-16.0 [facility] Comment on above: Performed By: #### T HCCONF #### [facility] [address] [place] [address] Dr. Nannette Baker IG # 0.02 10e3/ul Normal 0.00-0.[address] [facility] Comment on above: Performed By: #### T HCCONF #### [facility] [address] [place] [address] Dr. Nannette Baker IG % 0.2 % Normal 0.0-0.[address] [facility] Comment on above: Performed By: #### T HCCONF #### [facility] [address] [place] [address] Dr. Nannette Baker LYMPH # 1.8 103/ul Normal 1.2-3.[address] [facility] Comment on above: Performed By: #### T HCCONF #### [facility] [address] [place] [address] Dr. Nannette Baekr Lymphocytes/100 WBC (Bld) 17.3 % Critically low 20.5-60.0 [facility] Comment on above: Performed By: #### T HCCONF #### [facility] [address] [place] [address] Dr. Nannette Baker MANUAL DIFF REQ NO Normal [facility] Comment on above: Performed By: #### T HCCONF #### [facility] [address] [place] [address] Dr. Nannette Baker MCH (RBC) [Entitic mass] 31.7 pg Normal 26.7-34.[address] [facility] Comment on above: Performed By: #### T HCCONF #### [facility] [address] [place] [address] Dr. Nannette Baker MCHC (RBC) [Mass/Vol] 35.1 g/dL Normal 29.9-35.[address] [facility] Comment on above: Performed By: #### T HCCONF #### [facility] [address] [place] [address] Dr. Nannette Baker MCV (RBC) [Entitic vol] 90.4 fL Normal 81.0-99.[address] [facility] Comment on above: Performed By: #### T HCCONF #### [facility] [address] [place] [address] Dr. Nannette Baker MONO # 0.5 103/ul Normal 0.3-0.[address] [facility] Comment on above: Performed By: #### T HCCONF #### [facility] [address] [place] [address] Dr. Nannette Baker Monocytes/100 WBC (Bld) 4.2 % Normal 1.7-12.[address] [facility] Comment on above: Performed By: #### T HCCONF #### [facility] [address] [place] [address] Dr. Nannette Baker NEUT # 8.1 103/ul Critically high 1.4-6.5 [facility] Comment on above: Performed By: #### T HCCONF #### [facility] [address] [place] [address] Dr. Nannette Baker Neutrophils/100 WBC (Bld) 76.3 % Critically high 43.0-75.[address] [facility] Comment on above: Performed By: #### T HCCONF #### [facility] [address] [address] [address] Nannette Baker Platelet mean volume (Bld) [Entitic vol] 9.3 fL Critically low 9.5-13.5 [facility] Comment on above: Performed By: #### T HCCONF #### [facility] [address] [address] [address] Nannette Baker PLT 257 103/ul Normal 150-450 [facility] Comment on above: Performed By: #### T HCCONF #### [facility] [address] [address] [address] Nannette Baker RBC 3.75 106/ul Critically low 4.20-5.40 [facility] Comment on above: Performed By: #### T HCCONF #### [facility] [address] [address] [address] Nannette Baker WBC 10.6 103/ul Normal 4.0-11.0 [facility] Comment on above: Performed By: #### T HCCONF #### [facility] [address] [address] [address] Nannette Baker CULTURE URINEon 04-30-2021 CULTURE URINE Culture Observations: LIGHT GROWTH OF MIXED GENITAL RENETTA. NO POTENTIAL PATHOGENS SEEN. Normal [facility] Comment on above: Performed By: #### U RCX #### [facility] [address] [address] [address] Nannette Baker GLYCOHEMOGLOBIN A1Con 2021 ADA RECOMMENDATION ADA THERAPEUTIC TARGET 6.0 - 7.0 ACTION SUGGESTED > 7.0 Normal [facility] Comment on above: Performed By: #### T HCCONF #### [facility] [address] [address] [address] Nannette Baker Glucose [Mass/Vol] 91 mg/dL Normal [facility] Comment on above: Performed By: #### T HCCONF #### [facility] [address] [address] [address] Nannette Baker HbA1c (Bld) [Mass fraction] 4.8 % Normal <=6.0 [facility] Comment on above: Performed By: #### T HCCONF #### [facility] [address] [address] [address] Nannette Baker MANNY BOX TEST PT SEND OUTo n 04-30-2021 SENT TO REF LAB 04/30/2021 Normal [facility] Comment on above: Performed By: #### C VDTBH #### [facility] [address] [address] [address] Nannette Baker TYPE AND SCREENon 04-30-2021 TYPE AND SCREEN Negative Normal [facility] Comment on above: Performed By: #### C VDTBH #### [facility] [address] [address] [address] Nannette Baker US PREG TVon 04-05-2021 [...] by: WENDY POZO Date: 2021-04-05 09:[address] [facility] Vital Signs Date Time Vital Sign Value Performing Clinician Facility 04-09-2023 10:35-0500 Body mass index (BMI) [Ratio] 25.69 kg/m2 [employer] Work Phone: [facility] [employer] 04-09-2023 10:35-0500 Body weight 65.77 kg [employer] Work Phone: [facility] 04-09-2023 10:35-0500 Diastolic blood pressure 60 mm[Hg] Ginny Kesha DO Work Phone: [facility] 04-09-2023 10:35-0500 Systolic blood pressure 104 mm[Hg] Ginny Rebolledo DO Work Phone: [facility] 01-02-2023 13:00-0500 Diastolic blood pressure 80 mm[Hg] [facility] 01-02-2023 13:00-0500 Heart rate 60 /min [facility] 01-02-2023 13:00-0500 Respiratory rate 14 /min [facility] 01-02-2023 13:00-0500 Systolic blood pressure 110 mm[Hg] [facility] 01-02-2023 10:19-0500 Diastolic blood pressure 81 mm[Hg] [facility] 01-02-2023 10:19-0500 Heart rate 67 /min [facility] 01-02-2023 10:19-0500 Mean blood pressure 90 mm[Hg] [facility] 01-02-2023 10:19-0500 Respiratory rate 16 /min [facility] 01-02-2023 10:19-0500 SaO2% (BldA) [Mass fraction] 100 % [facility] 01-02-2023 10:19-0500 Systolic blood pressure 107 mm[Hg] [facility] 01-02-2023 08:58-0500 Body temperature 97.88 [degF] [facility] 01-02-2023 08:58-0500 Diastolic blood pressure 77 mm[Hg] [facility] 01-02-2023 08:58-0500 Heart rate 77 /min [facility] 01-02-2023 08:58-0500 Respiratory rate 18 /min [facility] 01-02-2023 08:58-0500 Systolic blood pressure 125 mm[Hg] [facility] 06-21-2022 05:00-0400 Diastolic blood pressure 80 mm[Hg] Ritesh Naida [facility] 06-21-2022 05:00-0400 Heart rate 65 /min Ritesh Naida [facility] 06-21-2022 05:00-0400 Hourly Rounding Ritesh Naida [facility] 06-21-2022 05:00-0400 Promise to Return Ritesh Naida [facility] 06-21-2022 05:00-0400 Respiratory rate 12 /min Ritesh Naida [facility] 06-21-2022 05:00-0400 SaO2% (BldA) [Mass fraction] 99 % Ritesh Naida [facility] 06-21-2022 05:00-0400 Systolic blood pressure 121 mm[Hg] Ritesh Naida [facility] 06-21-2022 04:00-0400 Diastolic blood pressure 79 mm[Hg] Ritesh Naida [facility] 06-21-2022 04:00-0400 Heart rate 67 /min Ritesh Naida [facility] 06-21-2022 04:00-0400 Hourly Rounding Ritesh Naida [facility] 06-21-2022 04:00-0400 Promise to Return Ritesh Naida [facility] 06-21-2022 04:00-0400 Respiratory rate 16 /min Ritesh Naida [facility] 06-21-2022 04:00-0400 SaO2% (BldA) [Mass fraction] 100 % Ritesh Naida [facility] 06-21-2022 04:00-0400 Systolic blood pressure 116 mm[Hg] Ritesh Naida [facility] 06-21-2022 03:00-0400 Diastolic blood pressure 78 mm[Hg] Ritesh Naida [facility] 06-21-2022 03:00-0400 Heart rate 64 /min Ritesh Naida [facility] 06-21-2022 03:00-0400 Hourly Rounding Ritesh Naida [facility] 06-21-2022 03:00-0400 Promise to Return Ritesh Naida [facility] 06-21-2022 03:00-0400 Systolic blood pressure 118 mm[Hg] Ritesh Naida [facility] 06-20-2022 23:24-0400 Body temperature 98.24 [degF] Ritesh Naida [facility] 07-04-2021 02:06-0400 Body weight 62.[address] GINNY REBOLLEDO [facility] Comment on above: Performed By: #### AFPMAT #### [facility] [address] [place] [address] Dr. Nannette Baker Encounters Encounter Date Encounter Type Care Provider Facility Start: 08-05-2023 End: 08-05-2023 ambulatory GINNY KESHA Not Available Start: 07-29-2023 End: 07-29-2023 ambulatory GINNY KESHA Not Available Start: 07-22-2023 End: 07-22-2023 ambulatory GINNY KESHA Not Available Start: 07-06-2023 End: 07-06-2023 ambulatory LUCIA CESPEDES Not Available Start: 06-22-2023 End: 06-22-2023 ambulatory GINNY KESHA Not Available Start: 06-08-2023 End: 06-08-2023 ambulatory GINNY KESHA Not Available Start: 05-11-2023 End: 05-11-2023 ambulatory LUCIA CESPEDES Not Available Start: 04-09-2023 End: 04-09-2023 ambulatory GINNY FITZGERALDO Not Available Start: 04-09-2023 End: 04-09-2023 flow sheet Ginny Fitzgeraldo DO Work Phone: [facility] Comment on above: Second trimester pre gnancy; Diabetes mellitus screening Start: 03-05-2023 End: 03-05-2023 ambulatory GINNY FITZGERALDO Not Available Start: 01-22-2023 End: 01-22-2023 ambulatory GINNY FITZGERALDO Not Available Start: 01-02-2023 End: 01-02-2023 [facility] Start: 01-02-2023 End: 01-02-2023 Emergency department patient visit [facility] Hussain Jennifer [facility] Start: 06-21-2022 End: 06-21-2022 Emergency department patient visit Ritesh Pascal Facility:[facility] Start: 06-20-2022 End: 06-21-2022 Emergency department patient visit Ritesh Pascal [facility] Start: 11-12-2021 End: 11-13-2021 Evaluation and management [...] encounter procedure 05/14/2023 10:30 AM EDT Routine [facility] [address] [id number] Lucia Cespedes PA [address] [place] [address] [facility] Start: 04-09-2023 End: 04-09-2024 CBC panel - Blood by Automated count CBC Lab Routine Diabetes mellitus screening Expected: 04/09/2023 (Approximate), Expires: 04/09/2024 [facility] Work Phone: Comment on above: Expected: 04/09/2023 (Approximate), Expires: 04/09/2024 Start: 04-09-2023 End: 04-09-2024 Measurement of glucose 1 hour after glucose challenge for glucose tolerance test Glucose tolerance, 1 hour Lab Routine Diabetes mellitus screening Expected: 04/09/2023 (Approximate), Expires: 04/09/2024 [facility] Comment on above: Expected: 04/09/2023 (Approximate), Expires: 04/09/2024 Immunizations Immunization Date Immunization Notes Care Provider Flavia gilliam 08-11-2016 tetanus toxoid, redu angelica diphtheria toxoid, and acellular pertussis vaccine, adsorbed Ritesh Pascal [facility] Payers Date Payer Category Payer Unknown [id number] 2018 Unknown BCBS BCBS xxxxxx [id number] 2018-Present [phone] [address] [place] [address] [id number] 1997 Unknown [id number] [id number]3 1997 Unknown [id number] 2.16.840.1.482499.3.579.2.593 1997 Unknown [id number] 2.16.840.1.040701.3.579.2.593 1997 Unknown [id number] 2.16.840.1.062303.3.579.2.593 1997 Unknown [id number] 2.16.840.1.620626.3.579.2.593 1997 Unknown [id number] 2.16.840.1.808402.3.579.2.593 1997 Unknown [id number] 2.16.840.1.686875.3.579.2.593 1997 Unknown [id number] 2.16.840.1.386471.3.579.2.593 1997 Unknown [id number] 2.16.840.1.884158.3.579.2.593 1997 Unknown [id number] 2.16.840.1.866902.3.579.2.593 1997 Unknown [id number] 2.16.840.1.198768.3.579.2.593 1997 Unknown [id number] 2.16.840.1.524184.3.579.2.727 1997 Unknown [id number] 2.16.840.1.275208.3.579.2.727 1997 Unknown [id number] 2.16.840.1.848846.3.579.2.1259 1997 Unknown [id number] 2.16.840.1.092249.3.579.2.1259 1997 Unknown [id number] 2.16.840.1.596639.3.579.2.9 1997 Unknown [id number] 2.16.840.1.086435.3.579.2.1259 1997 Unknown [id number] 2.16.840.1.546555.3.579.2.1259 1997 Unknown [id number] 2.16.840.1.974261.3.579.2.1259 1997 Unknown [id number] 2.16.840.1.304622.3.579.2.9 1997 Unknown [id number] 2.16.840.1.925407.3.579.2.1259 1997 Unknown [id number] 2.16.840.1.815105.3.579.2.1259 1997 Unknown [id number] 2.16.840.1.619652.3.579.2.1259 1959 Self-pay 1959 Unknown [id number] 1959 Unknown [id number] Unknown [id number] 2.16.840.1.196141.3.579.2.593 Social History Date Type Detail Facility Tobacco Never smoker [facility] Comment on above: Denies. Tobacco smoking status No Smoking Status Entered [facility] Start: 02-12-2023 Sex Assigned At Female F [facility] Start: 02-12-2023 Tobacco smoking status NHIS Never smoked tobacco [facility] Start: 02-12-2023 Tobacco use and exposure Smokeless tobacco non-user [facility] Start: 04-09-2023 Alcohol intake Lifetime non-d brandi (finding) [facility] Start: 02-12-2023 History of Social function [facility] Start: 02-12-2023 Alcohol Comment caffeine: coff ee and soda 16 oz [facility] Start: 12-04-2022 [facility] Start: 1995 Sex Assigned At Female [facility] Start: 01-21-2023 Gender identity Identifies as female gender (finding) [facility] Functional Status Date Assessment Result Facility 01-02-2023 Functional Status N/A [facility] 06-20-2022 Functional Status N/A [facility] History of Present illness Narrative 04-09-2023 ASHA [...] Ginny Rebolledo DO documented in this encounter [facility] Discharge instructions 01-02-2023 Note Date & [...] your visits. Where to find more information [employer]: [email or web address].org [employer]: [email or web address] [...] provider. Document Revised: 07/18/2020 Document Reviewed: 05/24/2020 [employer] Patient Education 2022 [employer]. 01/02/2023 13:45:55 Diarrhea, Adult Diarrhea, Adult Diarrhea [...] oral rehydration solution (ORS). This is an zkkn-phw-veqryub medicine that helps return your body to [...] drinks, sports drinks, and soda. Eat bland, iofo-zu-febzhl foods in small amounts as you are able. These foods include bananas, applesauce, rice, lean meats, toast, and crackers. Avoid alcohol. Avoid spicy or fatty foods. Medicines Take udkq-suj-uioirfl and prescription medicines only as told by your health care provider. If you were prescribed an antibiotic medicine, take it as told by your health care provider. Do not stop using the antibiotic even if you start to feel better. General instructions Wash your hands often using soap and water. If soap and water are not available, use a hand product safety specialist. Others in the household should wash their [...] and water are not available, use hand product safety specialist. Contact a health care provider if your diarrhea gets worse or you have new symptoms. Get help right away if you have signs of dehydration. This information is not intended to replace advice given to you by your health care provider. Make sure you discuss any questions you have with your health care provider. Document Revised: 08/21/2021 Document Reviewed: 08/21/2021 [employer] Systems Patient Education 2022 [employer]. 01/02/2023 13:45:55 Nausea and Vomiting, Adult Nausea [...] water added (diluted fruit juice). Eat bland, dczv-rf-mhikzx foods in small amounts as you are able. These foods include bananas, applesauce, rice, lean meats, toast, and crackers. Avoid fluids that contain a lot of sugar or caffeine, such as energy drinks, sports drinks, and soda. Avoid alcohol. Avoid spicy or fatty foods. General instructions Take ncxj-yef-mumywuf and prescription medicines only as told by your health care provider. Drink enough fluid to keep your urine pale yellow. Wash your hands often using soap and water for at least 20 seconds. If soap and water are not available, use hand product safety specialist. Make sure that everyone in your household [...] eating and drinking to prevent dehydration. Take uyow-agr-hqjumrh and prescription medicines only as told by [...] provider. Document Revised: 08/16/2021 Document Reviewed: 08/16/2021 [employer] Patient Education 2022 [employer]. 01/02/2023 13:45:55 Abdominal Pain, Adult Abdominal Pain, [...] Follow these instructions at home: Medicines Take mkeq-tqv-wlanktq and prescription medicines only as told by [...] Watch your condition for any changes. Take aals-ijx-aqamvor and prescription medicines only as told by [...] provider. Document Revised: 03/30/2020 Document Reviewed: 06/20/2019 [employer] Patient Education 2022 [employer] Follow Up Care 01/02/2023 08:54:27 With:Ginny REBOLLEDO Address: [address] [place] [address] Business (1) When:01/05/2023 13:27:46 Comments:Make sure to follow-up with Dr. Rebolledo for your . Follow-up with Dr. Cuellar for the belly pain. Return to the emergency room if the abdominal pain recurs, vomiting recurs, vaginal bleeding or any new symptoms. With:Patricia Murrieta Address:Unknown When:01/05/2023 13:27:38 [facility] Evaluation + Plan note 01-02-2023 Note Date & Type Note Facility 01-02-2023 Evaluation + Plan note Extrac jose alfredo from: Title:ED Note Author:Jennifer Lopze, Amado Aguilar te:01/02/23 1. Abdominal pain (R10.9: [...] QID, # 20 cap(s), Refills(s) 0, Pharmacy: [facility]/pharmacy #[id number], 160.1, cm, 01/02/23 9:00:00 EST, Height/Length Dosing, [...] Nausea/Vomiting, # 12 tab(s), Refills(s) 0, Pharmacy: [facility]/pharmacy #[id number], 160.1, cm, 01/02/23 9:00:00 EST, Height/Length [...] US Gallbladder US 1st Trimester US Transvaginal [facility] Evaluation + Plan note 06-21-2022 Note Date & Type Note Facility 06-21-2022 Evaluation + Plan note Extrac jose alfredo from: Title:ED Note Author:Ritesh Pascal DO Date :06/21/22 Abdominal pain, acute (R10.9 : Unspecified abdominal pain) Orders: HYDROmorphone, 0.5 mg = 0.5 mL, Injection, IV Push, Once, Stop date 06/21/22 0:14:00 EDT, STAT, Start date 06/21/22 0:14:00 EDT, 04/29/23 0:14:00 EDT ketorolac, 15 mg = 1 mL, Injection, IV Push, Once, Stop date 06/21/22 1:08:00 EDT, STAT, Start date 06/21/22 1:08:00 EDT, 06/21/22 1:08:00 EDT naproxen, 500 mg = 1 tab(s), Oral, BID, PRN Pain, # 14 tab(s), Refills(s) 0, Pharmacy: [facility]/pharmacy #[id number], 160, cm, 06/20/22 23:30:00 EDT, Height/Length [...] Nausea/Vomiting, # 16 tab(s), Refills(s) 0, Pharmacy: [facility]/pharmacy #[id number], 160, cm, 06/20/22 23:30:00 EDT, Height/Length [...] With Cult Reflex US Pelvis Non-OB Complete [facility] Hospital Discharge instructions 06-21-2022 Note Date & [...] Follow these instructions at home: Medicines Take qdgl-ewz-ofktasd and prescription medicines only as told by [...] Watch your condition for any changes. Take hhtm-fdl-uzxhebn and prescription medicines only as told by [...] provider. Document Revised: 03/30/2020 Document Reviewed: 06/20/2019 [employer] Patient Education 2022 [employer]. Follow Up Care 06/20/2022 23:21:21 With:Keith GARCIA Address: [address] [place], [place] [id number]- Business (1) When:06/24/2022 [facility] Evaluation note Note Date & Type Note Facility Evaluation note Diagnosis Second trimester state, incidental Diabetes mellitus screening Screening for diabetes mellitus documented in this encounter [facility] course Narrative Note Date & Type Note Facility Hospital course Narrative No data available for this section [facility] Progress note Note Date & Type Note Facility Progress note No data available for this section [facility] Summary Purpose Family History No Family History Records Found No data available for this section No Family History Records FoundNo Family History Records Found Advance Directives No Advanced Directives Records FoundNo Advanced Directives Records FoundNo Advanced Directives Records Found Additional Source Comments INFORMATION SOURCE (unrecogn ized section and content) DATE CREATED AUTHOR 11/24/2021 [facility] DATE CREATED AUTHOR AUTHOR'S ORGANIZ ATION 01/04/2023 [facility] DATE CREATED AUTHOR AUTHOR'S ORGANIZ ATION 08/06/2023 [facility] EPIC Patient Care team informatio n (unrecognized section and content) Personnel Name: Keith GARCIA DO Address: Address: [address] [place], [place] [address] Personnel Name: NONE, XXXX Address: Address: [facility] Reason for Visit (unrecogniz ed section and [...] BE BASED ON THE PRIMARY CLINICAL RECORDS. [facility] provides no warranty or guarantee of the accuracy or completeness of information in this document.
[2023-08-12] MEDS: 0.9 % SODIUM CHLORIDE 1,000 ML 125 ML IV (18:21)
[2023-08-12] MEDS: AMPICILLIN SODIUM 2,000 MG in 0.9 % SODIUM CHLORIDE 100 ML 200 MG IV (18:28)
[2023-08-12 18:35] LABS: Hemoglobin 10.8 g/dL (12.0-16.0); Mean Corpuscular HGB Conc 33.8 g/dL (29.9-35.2); Mean Corpuscular Hemoglobin 29.2 pg (26.7-34.0); Mean Corpuscular Volume 86.5 fL (81.0-99.0); Mean Platelet Volume 9.8 fL (9.5-13.5); Platelet Count 290 10^3/uL (150-450); Red Cell Distribution Width 12.1 % (11.0-15.0); White Blood Count 15.8 10^3/uL (4.0-11.0)
--- NOTE | 2023-08-12 18:37 | PM.OBPRCVD ---
Procedure Intrapartal events: None Induction method: none Delivery monitor: external FHT and external uterine Route of delivery: L&D Laceration Description: none Estimated blood loss (mL): 200 Anesthesia type: None Disposition: floor Delivery date: 08/12/23 Gender: female presentation: vertex Placental delivery description: Spontaneous cord description: 3 Vessels
[2023-08-12] MEDS: IBUPROFEN 600 MG TABLET PO (19:38)
[2023-08-12] MEDS: OXYTOCIN/0.9 % SODIUM CHLORIDE 20 UNITS/1,000 ML PLAST..BAG 125 UNIT IV (19:44)
[2023-08-12] MEDS: ONDANSETRON 4 MG RAPDIS TABLET SL (21:27)
[2023-08-12 22:17] LABS: Amphetamine Screen Urine NEGATIVE (NEGATIVE); Barbiturates Screen Urine NEGATIVE (NEGATIVE); Benzodiazepines Screen Urine NEGATIVE (NEGATIVE); Buprenorphine Screen Urine NEGATIVE (NEGATIVE); Cannabinoid Screen Urine POSITIVE (NEGATIVE); Cocaine Screen Urine NEGATIVE (NEGATIVE); Methadone Screen Urine NEGATIVE (NEGATIVE); Methamphetamines Screen Urine NEGATIVE (NEGATIVE); Opiate Screen Urine NEGATIVE (NEGATIVE); Oxycodone Screen Urine NEGATIVE (NEGATIVE); Phencyclidine Screen Urine NEGATIVE (NEGATIVE); Tricyclic Antidepressant Urine NEGATIVE (NEGATIVE)
--- NOTE | 2023-08-13 00:24 | PM.OBPN ---
OB - PN: Subj Subjective Patient comments: no complaints and pain well controlled [place] status: doing well Exam Constitutional Vital Signs, click to edit/add: Last Vital Signs Temp 96.8 F L 08/12/23 20:48 Pulse 57 L 08/12/23 20:41 BP 125/59 08/12/23 20:41 Documenting provider has reviewed patient's vital signs: yes Common normals: no apparent distress Respiratory Common normals: normal respiratory effort and clear to auscultation bilaterally Cardio Common normals: regular rate and regular rhythm GI Common normals: Normal to inspection, nondistended, normoactive bowel sounds present Extremity Common normals: no calf tenderness Results Labs Labs: Short CBC 08/12/23 Range/Units 18:25 WBC 15.8 H (4.0-11.0) 10^3/uL Hgb 10.8 L (12.0-16.0) g/dL Hct 32.0 L (36.0-48.0) % Plt Count 290 (150-450) 10^3/uL OB - PN: A/P Plan - Vaginal Delivery day: 1 Plan: routine care, discharge home and follow up 6 weeks Time Spent with Patient Time: Total time spent is greater than 50% in coordination of care (as documented) at patient's floor/unit and/or counseling patient: Total time spent with greater than 50% in coordination of care (as documented) at patient's floor/unit and/or counseling patient: less than 15 minutes
[2023-08-13] MEDS: IBUPROFEN 600 MG TABLET PO ×3 (01:22→20:48)
--- NOTE | 2023-08-13 01:24 | PC.NURSE ---
Pt medicated with Motrin 600mg po for complaints of post delivery pain. Pt attempting to awake baby to feed.
[2023-08-13 02:16] VITALS: BP 124/99; PULSE 50; TEMP 35.9; TEMP 36.6
[2023-08-13 02:19] VITALS: BP 119/71; PULSE 59
[2023-08-13 05:56] LABS: Basophils Absolute Auto 0.1 10^3/uL (0.0-0.1); Basophils Percent Auto 0.4 % (0.2-2.0); Eosinophils Absolute Auto 0.1 10^3/uL (0.0-0.7); Eosinophils Percent Auto 0.8 % (0.9-7.0); Hematocrit 28.8 % (36.0-48.0); Hemoglobin 9.4 g/dL (12.0-16.0); Immature Granulocytes Abs Auto 0.06 10^3/uL (0.00-0.03); Immature Granulocytes Pct Auto 0.4 % (0.0-0.5); Lymphocytes Absolute Auto 1.8 10^3/uL (1.2-3.8); Lymphocytes Percent Auto 12.9 % (20.5-60.0); Mean Corpuscular HGB Conc 32.6 g/dL (29.9-35.2); Mean Corpuscular Hemoglobin 28.9 pg (26.7-34.0); Mean Corpuscular Volume 88.6 fL (81.0-99.0); Mean Platelet Volume 9.6 fL (9.5-13.5); Monocytes Absolute Auto 0.7 10^3/uL (0.3-0.8); Monocytes Percent Auto 5.1 % (1.7-12.0); Neutrophils Absolute Auto 11.5 10^3/uL (1.4-6.5); Neutrophils Percent Auto 80.4 % (43.0-75.0); Platelet Count 219 10^3/uL (150-450); Red Blood Count 3.25 10^6/uL (4.20-5.40); Red Cell Distribution Width 11.9 % (11.0-15.0); White Blood Count 14.3 10^3/uL (4.0-11.0)
[2023-08-13 09:04] VITALS: BP 118/74; PULSE 50; TEMP 36.9
[2023-08-13] MEDS: DOCUSATE SODIUM 100 MG CAPSULE PO ×2 (09:14→20:46)
[2023-08-13] MEDS: ONDANSETRON 4 MG RAPDIS TABLET SL (09:33)
[2023-08-13] MEDS: CITALOPRAM HYDROBROMIDE 20 MG TABLET PO (10:39)
--- NOTE | 2023-08-13 11:08 | SWNOTE1 ---
SW met with pt due to positive drug screen for marijuana. Pt voiced she has everything she needs at home for baby. In the home is her and 2 sons who are 4 and 1. Pt also voiced she has a good support system at home. She is attempting breast feeding, was able to breast feed her one son as well. SW did ask about positive marijuana drug screen. She voiced she was positive for her middle son as well and met with SW. She smoked it due to nausea and to help her sleep. She stated it is always out of reach of the children and they are never around it. She is unsure if she will continue after discharge and does not have her medical marijuana card. Pt voices she is feeling well and baby is doing well. SW spoke to pt about post depression and signs to watch for. At this time no other concerns. SW spoke to nursing and no other concerns, pt is caring for and is appropriate with baby. Report called to [facility] CPS. HIPAA form filled out and sent to
[2023-08-13] MEDS: ACETAMINOPHEN 325 MG TABLET 650 MG PO ×2 (13:09→22:16)
[2023-08-13] MEDS: CYCLOBENZAPRINE HCL 10 MG TABLET 5 MG PO (15:26)
[2023-08-13 15:30] VITALS: BP 112/62; PULSE 46; TEMP 36.7
[2023-08-13 23:54] VITALS: TEMP 36.2
[2023-08-13 23:55] VITALS: BP 135/89; PULSE 57
[2023-08-14] MEDS: IBUPROFEN 600 MG TABLET PO ×3 (03:02→18:31)
[2023-08-14] MEDS: ACETAMINOPHEN 325 MG TABLET 650 MG PO ×2 (04:56→14:07)
--- NOTE | 2023-08-14 07:14 | W.PC.ACHO ---
Registration Status: ADM IN Primary Language: Rwandan Preferred Language: Rwandan Report given at 0710 to Cristy. Active Medications Generic Name Dose Route Start Last Admin Trade Name Freq PRN Reason Stop Dose Admin Acetaminophen 650 mg 08/12/23 18:38 08/14/23 04:56 Acetaminophen 325 Mg Tablet PO 650 mg Q6H PRN Administration Mild Pain Hydrocodone Bitart/Acetaminophen 2 tab 08/13/23 14:59 Hydrocodone/Acet 5-325 Mg Tablet PO Q6H PRN ABDOMINAL PAIN Al Hydroxide/Mg Hydroxide 2,400 mg 08/12/23 18:38 Magnesium Hydroxide 2,400 Mg/10 Ml Oral.Susp PO Q6H PRN Dyspepsia Benzocaine/Menthol 1 applic 08/12/23 18:38 Benzocaine/Menthol 85 Gram [place] Bottle TOPICAL Q2H PRN Pain Carboprost Tromethamine 250 mcg 08/12/23 18:19 Carboprost Tromethamine 250 Mcg/Ml 1 Ml Vial IM 08/14/23 18:20 Q15M PRN Bleeding Celecoxib 20 mg 08/13/23 10:00 08/13/23 10:39 Citalopram Hydrobromide 20 Mg Tablet PO 20 mg QD PAULINA Administration Diphtheria/Pertussis/Tetanus Vacc 0.5 ml 08/14/23 09:00 Adacel Diph,Pertuss(Acell),Tet Vac/Pf 0.5 Ml Adult Syringe IM 08/14/23 09:01 .ONCE ONE Docusate Sodium 100 mg 08/13/23 09:00 08/13/23 20:46 Docusate Sodium 100 Mg Capsule PO 100 mg BID PAULINA Administration Sodium Chloride 1,000 mls @ 125 mls/hr 08/12/23 17:00 08/12/23 18:21 Sodium Chloride 0.9% 1,000 Ml IV 125 mls/hr .Q8H PAULINA Administration Ibuprofen 600 mg 08/12/23 18:38 08/14/23 03:02 Ibuprofen 600 Mg Tablet PO 600 mg Q6H PRN Administration Moderate Pain Measles/Mumps/Rubella Vaccine Live 0.5 ml 08/14/23 09:00 Measles,Mumps,Rubella Vacc/Pf 0.5 Ml Vial SQ 08/14/23 09:01 .ONCE ONE Methylergonovine Maleate 0.2 mg 08/12/23 18:19 Methylergonovine Maleate 0.2 Mg/Ml Ampule IM 08/14/23 18:20 ONCE PRN Uterine Contractility/Contract Methylergonovine Maleate 0.2 mg 08/12/23 18:19 Methylergonovine Maleate 0.2 Mg Tablet PO 08/14/23 18:20 Q4H PRN Uterine Contractility/Contract Misoprostol 600 mcg 08/12/23 18:19 Misoprostol 100 Mcg Tablet PO 08/14/23 18:20 ONCE PRN Uterine Bleeding Misoprostol 800 mcg 08/12/23 18:19 Misoprostol 100 Mcg Tablet SL 08/14/23 18:20 ONCE PRN Uterine Bleeding Misoprostol 1,000 mcg 08/12/23 18:19 Misoprostol 100 Mcg Tablet AK 08/14/23 18:20 ONCE PRN Uterine Bleeding Ondansetron HCl 4 mg 08/12/23 18:19 Ondansetron Pf 4 Mg/2 Ml Vial IV Q6H PRN Nausea And Vomiting Ondansetron HCl 4 mg 08/12/23 18:19 08/13/23 09:33 Ondansetron 4 Mg Rapdis Tablet SL 4 mg Q6H PRN Administration Nausea And Vomiting Oxytocin 10 unit 08/12/23 18:19 Oxytocin 10 Unit/Ml Vial IM 08/14/23 18:20 ONCE PRN hemorrhage Senna 17.2 mg 08/12/23 20:00 Sennosides 8.6 Mg Tablet PO QHS PRN Constipation Simethicone 80 mg 08/12/23 18:38 Simethicone 80 Mg Tab.Chew PO QID PRN Abdominal Distention Temazepam 15 mg 08/12/23 18:38 Temazepam 15 Mg Capsule PO QHS PRN Sleep Witch Viri/Glycerin 1 pad 08/12/23 18:38 Glycerin/Witch Viri Pads TOPICAL Q2H PRN Pain Respiratory Oxygen Delivery Method Room Air Oxygen Delivery Method Room Air Oxygen Delivery Method Room Air Renal Bladder Pattern Continent Bladder Pattern Continent
--- NOTE | 2023-08-14 07:46 | P.OBPN_ITS ---
OB - PN: Subj Subjective Patient comments: no complaints and pain well controlled [place] status: doing well Exam Constitutional Vital Signs, click to edit/add: Last Vital Signs Temp 97.2 F L 08/13/23 23:54 Pulse 57 L 08/13/23 23:55 Resp 16 08/13/23 23:55 BP 135/89 08/13/23 23:55 O2 Del Method Room Air 08/13/23 23:55 Documenting provider has reviewed patient's vital signs: yes Common normals: no apparent distress Respiratory Common normals: normal respiratory effort and clear to auscultation bilaterally Cardio Common normals: regular rate and regular rhythm GI Common normals: Normal to inspection, nondistended, normoactive bowel sounds present Extremity Common normals: no clubbing, cyanosis or edema and no calf tenderness OB - PN: A/P Plan - Vaginal Delivery day: 2 Plan: routine care, discharge home and follow up 6 weeks Time Spent with Patient Time: Total time spent is greater than 50% in coordination of care (as documented) at patient's floor/unit and/or counseling patient: Total time spent with greater than 50% in coordination of care (as documented) at patient's floor/unit and/or counseling patient: less than 15 minutes
[2023-08-14 08:38] VITALS: BP 107/75; PULSE 62; TEMP 36.3
[2023-08-14] MEDS: DOCUSATE SODIUM 100 MG CAPSULE PO (08:44)
[2023-08-14] MEDS: CITALOPRAM HYDROBROMIDE 20 MG TABLET PO (08:44)
== END 2023-08-14 18:53 | disposition home or self-care (01) | DRG 807 ==
PROVIDERS: Admitting Provider Obstetrics & Gynecology; Visit Provider Obstetrics & Gynecology
DX: O99.344 Other mental disorders complicating childbirth (principal); Z37.0 Single live birth; F41.9 Anxiety disorder, unspecified; Z3A.37 37 weeks gestation of pregnancy; Z79.899 Other long term (current) drug therapy; Z23 Encounter for immunization
CPT/HCPCS: 36415; 80307; 85025; 85027; 86850; 86900; 86901; 96374; 96375; J0290; Q0162

== ENCOUNTER 2024-06-14 12:27 | Outpatient (OUT) | payer OTHER, SELFPAY ==
[2024-06-14 12:54] LABS: Basophils Percent Auto 0.5 % (0.2-2.0); Eosinophils Absolute Auto 0.1 10^3/uL (0.0-0.7); Hematocrit 34.5 % (36.0-48.0); Hemoglobin 11.9 g/dL (12.0-16.0); Immature Granulocytes Abs Auto 0.02 10^3/uL (0.00-0.03); Immature Granulocytes Pct Auto 0.2 % (0.0-0.5); Lymphocytes Absolute Auto 1.8 10^3/uL (1.2-3.8); Lymphocytes Percent Auto 21.7 % (20.5-60.0); Mean Corpuscular HGB Conc 34.5 g/dL (29.9-35.2); Mean Corpuscular Hemoglobin 30.4 pg (26.7-34.0); Mean Platelet Volume 9.9 fL (9.5-13.5); Monocytes Absolute Auto 0.4 10^3/uL (0.3-0.8); Monocytes Percent Auto 4.3 % (1.7-12.0); Neutrophils Absolute Auto 6.1 10^3/uL (1.4-6.5); Neutrophils Percent Auto 72.3 % (43.0-75.0); Platelet Count 235 10^3/uL (150-450); Red Blood Count 3.92 10^6/uL (4.20-5.40); Red Cell Distribution Width 11.4 % (11.0-15.0); White Blood Count 8.4 10^3/uL (4.0-11.0)
[2024-06-14 13:07] LABS: Estimated Average Glucose 103 mg/dL; Glycohemoglobin A1C 5.2 % (4.5-6.2)
[2024-06-14 13:39] LABS: Free T4 1.04 ng/dL (0.76-1.46)
[2024-06-14 13:41] LABS: Thyroid Stimulating Hormone 1.318 uIU/mL (0.358-3.740)
[2024-06-14 13:42] LABS: HCG Quantitative <1 mIU/mL
[2024-06-15 04:07] LABS: FSH 9.2 mIU/mL (.); Luteinizing Hormone(LH) 10.3 mIU/mL (.)
[2024-06-20 17:08] LABS: DHEA, Serum 375 ng/dL (31-701)
== END 2024-06-14 12:28 | disposition home or self-care (01) ==
LOC: LAB 12:28
PROVIDERS: Visit Provider Obstetrics & Gynecology
DX: E28.2 Polycystic ovarian syndrome (principal); N92.6 Irregular menstruation, unspecified
CPT/HCPCS: 36415; 82626; 82627; 83001; 83002; 83036; 84439; 84443; 84702; 85025

== ENCOUNTER 2025-01-09 08:26 | Emergency (ER) | payer OTHER, SELFPAY ==
[2025-01-09 08:38] VITALS: BP 120/82; PULSE 70; TEMP 36.6; O2SAT 99; BMI 24.7
[2025-01-09] MEDS: 0.9 % SODIUM CHLORIDE 1,000 ML 1000 ML IV (09:00)
[2025-01-09] MEDS: FAMOTIDINE/PF 20 MG/2 ML VIAL IV (09:00)
--- OUTSIDE RECORDS SUMMARY | 2025-01-09 09:04 | XMS_ITS | CCD ---
Author Organization [facility] Care Team Providers Care Sack Filler Name Role Phone KESHA, DR GROSS Admitting [...] DR ELSIE LISTED Primary Care Unavaila ble ZIEBER, DR SAMIR Edgar Consulting Unavailable KESHA, DR GROSS Attending Unavailable MISC, DR LOPES Primary Care Unavailable KESHA, DR GROSS Admitting Unavailable KESHA, DR GROSS Consulting Unavailable KESHA, DR GROSS Attending Unavailable MISC, DR LOPES Primary Care Unavailable KESHA, DR GROSS Admitting Unavailable PARLIN, DR WENDY Christiansen Consulting Unavailable KESHA, DR [...] Unavailable KESHA, DR GROSS Procedure Practitioner Unavailab le KESHA, DR GROSS Admitting Unavailable MISC, DR [...] Physician NONE, XXXX Primary Care Physician Unavailab le Unavailable Primary Care Provider UnavailAlex Langston Attending Unavailable Alex Correia Attending Unavailable Ritesh Pascal Attending Unavailable Amado Rodriguez Attending Unavailable Yohannes Ramos Admitting Unavailable Yohannes Ramos Attending Unavailable Yohannes Ramos Referring Unavailable Yohannes Ramos Attending Unavailable Myrna Tenorio Primary Care Physician Alex Correia Attending Unavailable Alex Correia Attending Unavailable CLARKE REBOLLEDO Attending Unavailable LUCIA NO Attending Unavailable CLARKE REBOLLEDO Attending Unavailable CLARKE REBOLLEDO Attending Unavailable CLARKE REBOLLEDO Attending Unavailable CLARKE REBOLLEDO Attending Unavailable Medications Current Medications MedicationDrug Class(es)DatesSig (Normalized)Sig (Original)dicyclomine hydrochloride 20 mg oral tablet (4 sources)AnticholinergicStart: 05-06-2024 End: 35-14-4623hsbw 1 tablet by mouth three times dailydicyclomine 20 mg Tab 20 mg = 1 tab(s), Oral, TID, X 7 day(s), # 21 tab(s), Refills(s) 0, Pharmacy: [facility]/pharmacy #[id number], 160, cm, 05/06/24 9:09:00 EDT, Height/Length Dosing, 61, kg, 05/06/24 9:09:00 EDT, Weight Dosing Start Date: 05/06/24 Stop Date: 05/13/24 Status: OrderedStart: 63-06-3538tdzr 2 capsules by mouth four times dailyBentyl 10 mg Cap 20 mg = 2 cap(s), Oral, QID, # 20 cap(s), Refills(s) 0, Pharmacy: [facility]/pharmacy #[id number], 160.1, cm, 01/02/23 9:00:00 EST, Height/Length Dosing, 58.8, kg, 01/02/23 9:00:00 EST, Weight Dosing Start Date: 01/02/23 Status: Ordered doxycycline hyclate 100 mg oral capsule (3 sources)Tetracycline-class DrugStart: 06-14-2024 End: 91-88-9956fgpjpxcttmx (Vibramycin) 100 MG capsule Indications: Cervicitis and endocervicitis Take 1 capsule (100 mg) by mouth in the morning and 1 capsule (100 mg) before bedtime. Do all this for 14 days. Takewith at least 8 ounces (large glass) of water, do not lie down for 30 minutes after. 28 capsule 05/2506/28/2024 Activedrospirenone 3 mg / ethinyl estradiol 0.03 mg oral tablet (4 sources)Progestin, EstrogenStart: 11-18-2023 End: 26-06-5823gaxy 1 tablet by mouth once daily, then take 1 tablet by mouth once dailydrospirenone-ethinyl estradiol (Ocella) 3-0.03 MG tablet Indications: Encounter for female control Take 1 tablet by mouth Daily Take 1 tablet by mouth daily 28 tablet 11 11/18/2023 10/19/2024 Activeethinyl estradiol 0.02 mg / norethindrone acetate 1 mg oral tablet (1 source)EstrogenStart: 20-27-2476Zxrnzqfaful 1/20 20 mcg-1 mg oral tablet Refill(s) 0 Start Date: 08/14/20 Status: Orderednaproxen 500 mg delayed release oral tablet (1 source)Nonsteroidal Anti-inflammatory DrugStart: 23-58-7085jepl 1 tablet by mouth twice daily as needed for painnaproxen 500 mg oral enteric coated tablet 500 mg = 1 tab(s), Oral, BID, PRN Pain, # 14 tab(s), Refills(s) 0, Pharmacy: [facility]/pharmacy #[id number], 160, cm, 06/20/22 23:30:00 EDT, Height/Length Dosing, 55, kg , 06/20/22 23:30:00 EDT, Weight Dosing Start Date: 06/21/22 Status: Ordered norethindrone 0.35 mg oral tablet (6 sources)Start: 10-07-2023 End: 18-74-6072ektu 1 tablet by mouth once dailynorethindrone (Micronor) 0.35 MG tablet Indications: Encounter for female control Take 1 tablet (0.35 mg) by mouth Daily 28 tablet 11 10/07/2023 06/14/2024 Discontinuedomeprazole 20 mg delayed release oral capsule (5 sources)Proton Pump InhibitorStart: 86-14-5974zzpy 1 capsule by mouth once dailyomeprazole 20 mg Cap-DR 20 mg = 1 cap(s), Oral, Daily, # 30 cap(s), Refills(s) 0, Pharmacy: [facility]/pharmacy #[id number], 160, cm, 05/06/24 9:09:00 EDT, Height/Length Dosing, 61, kg, 05/06/24 9:09:00 EDT, Weight Dosing Start Date: 05/06/24 Status: Orderedondansetron 4 mg disintegrating oral tablet (13 sources)Serotonin-3 Receptor AntagonistStart: 01-22-2023 End: 96-09-5165bych 1 tablet by mouth every six hours as needed for nausea and vomitingondansetron ODT (Zofran-ODT) 4 MG disintegrating tablet Indications: Nausea TAKE 1 TABLET BY MOUTH EVERY 6 HOURS NEEDED FOR NAUSEA AND VOMITING 20 tablet 3 01/22/2023 Activepromethazine hydrochloride 12.5 mg oral tablet (5 sources)PhenothiazineStart: 30-62-9894opfv 1 tablet by mouth every eight hours as needed for nauseapromethazine 12.5 mg oral tablet 12.5 mg = 1 tab(s), Oral, q8hr, PRN as needed for nausea/vomiting,second line nausea, # 8 tab(s), Refills(s) 0, Pharmacy: [facility]/pharmacy #[id number], 160, cm, 11/07/23 23:38:00 EDT, Height/Length Dosing, 60, kg, 11/07/23 23:38:00 EDT, Weight Dosing Start Date: 11/08/23 Status: OrderedZofran ODT 4 mg Tab-Dis (12 sources)Start: 55-93-2924nmgv 1 tablet by mouth every eight hours as needed for nauseaZofran ODT 4 mg Tab-Dis 4 mg = 1 tab(s), Oral, q8hr, PRN Nausea/Vomiting, first line nausea, # 16 tab(s), Refills(s) 0, [id number] 160, cm, 11/07/23 23:38:00 EDT, Height/Length Dosing, 60, kg, 11/07/23 23:38:00 EDT, Weight Dosing Start Date: 11/08/23 Status: Ordered Start: 87-19-1318cixj 1 tablet by mouth every six hours as needed for nausea Zofran ODT 4 mg Tab-Dis 4 mg = 1 tab(s), Oral, q6hr, PRN Nausea/Vomiting, # 12 tab(s), Refills(s) 0, [id number] 160.1, cm, 01/02/23 9:00:00 EST, Height/Length Dosing, 58.8, kg, 01/02/23 9:00:00 EST, Weight Dosing Start Date: 01/02/23 Status: OrderedStart: 68-81-5004jokm 1 tablet by mouth every eight hours as needed for nauseaZofran ODT 4 mg Tab-Dis 4 mg = 1 tab(s), Oral, q8hr, PRN Nausea/Vomiting, # 16 tab(s), Refills(s) 0, [id number] 160, cm, 06/20/22 23:30:00 EDT, Height/Length Dosing, 55, kg, 06/20/22 23:30:00 EDT, Weight Dosing Start Date: 06/21/22 Status: Ordered Completed/Discontinued Medications MedicationDrug Class(es)DatesSig (Normalized)Sig (Original)citalopram 20 mg oral tablet (11 sources)Serotonin Reuptake InhibitorStart: 01-02-2023 End: 62-72-9498wuzb 1 tablet by mouth once dailycitalopram (CeleXA) 20 MG tablet Indications: Anxiety with depression Take 1 tablet (20 mg) by mouth Daily 30 tablet 3 07/06/2023 06/21/2024 DiscontinuedPrenatal MV & Min w/FA-DHA ( Adult Gummy/DHA/FA) 0.4-25 MG chewable tablet (4 sources) End: 43-32-0151Djdhdxwl MV & Min w/FA-DHA ( Adult Gummy/DHA/FA) 0.4-25 MG chewable tablet Chew 1 each Daily 06/14/2024 DiscontinuedPrenatal MV & Min w/FA-DHA ( Adult Gummy/DHA/FA) 0.4-25 MG chewable tablet Chew 1 each D aily Active Problems Active Problems Problem ClassificationProblemDateDocumented DateEpisodic/ChronicAbdominal pain (3 sources)Abdominal pain; Translations: [Unspecified abdominal pain]Onset: 09-61-5417KhivdfqoKxjwetk disorders (1 source)Anxiety disorder, unspecified; Translations: [ANXIETY DISORDER UNSPECIFIED]Onset: 76-32-9011PlfifjeAugla and electrolyte disorders (1 source)Hypokalemia; Translations: [Hypokalemia]Onset: 09-36-9168Ekwubcdi Gastritis and duodenitis (1 source)Gastritis; Translations: [Gastritis, unspecified, without bleeding] Onset: 66-94-2571WkqvxfumUfnfcuvvoxtu diseases of female pelvic organs (2 sources)Cervicitis and endocervicitis; Translations: [Inflammatory disease of cervix uteri]57-08-5442OeqiqgoqJfnpzgjlo disorders (6 sources)Irregular menstruation, unspecified; Translations: [Abnormal menstrual cycle]Onset: 79-54-9121AqpujdvGspt disorders (1 source)Major depressive disorder, single episode, unspecified; Translations: [LAURA DEPRESS D/O SINGLE EPIS UNS]Onset: 84-87-0981AmvmsddEkyklv and vomiting (3 sources)Vomiting; Translations: [Vomiting, unspecified]Onset: 01-02-2023 EpisodicOther complications of ; puerperium affecting management of mother (1 source)Streptococcus B carrier state complicating childbirth; Translations: [STREP B HESS STATE COMP CHILDBIRTH]Onset: 66-06-9720WppdqvbkFcxkc complications of ; puerperium affecting management of mother (1 source)Other mental disorders complicating childbirth; Translations: [OTH MENTAL D/O COMP CHILDBIRTH]Onset: 10-28-7474SijxjmlwXoglo complications of (4 sources)Maternal care for excessive growth, third trimester, not applicable or unspecified; Translations: [MAT CARE EXC FT GR 3RD TRI UNS] Onset: 09-35-5307SkjpdepfSswwg connective tissue disease (1 source)Spasm; Translations: [Other muscle spasm]Onset: 56-39-6901Hodanszr Other disorders of stomach and duodenum (1 source)Cyclical vomiting syndrome; Translations: [Cyclical vomiting syndrome unrelated to migraine]Onset: 82-62-6840WebikkinOssdv endocrine disorders (2 sources)Polycystic ovary syndrome; Translations: [Polycystic ovarian syndrome]80-32-9243PwshoeiPmwbc gastrointestinal disorders (1 source)Diarrhea; Translations: [Diarrhea, unspecified]Onset: 01-02-2023 EpisodicOther and delivery including normal (13 sources)Single live ; Translations: [Encounter for supervision of normal , unspecified, unspecified trimester]Onset: 28-96-4076Mxvtdaqb Other screening for suspected conditions (not mental disorders or infectious disease) (15 sources)Encounter for screening for Streptococcus B; Translations: [Encounter for screening for diabetes mellitus]Onset: 76-91-8368FwvyltfnNakgkpra codes; unclassified (1 source)39 weeks gestation of ; Translations: [39 WEEKS GESTATION OF ]Onset: 47-82-4852DdgrgyobPoidjacu codes; unclassified (1 source)36 weeks gestation of ; Translations: [36 WEEKS GESTATION OF ]Onset: 49-79-4541NemfyhfuWqslcosp codes; unclassified (1 source)32 weeks gestation of ; Translations: [32 WEEKS GESTATION OF ]Onset: 50-55-5391GczvsrzbRfnyywpuq and history of mental health and substance abuse codes (1 source)Personal history of nicotine dependence; Translations: [PERSONAL HISTORY OF NICOTINE DEPEND]Onset: 34-16-4233CfygsuneNxcpselyf-related disorders (4 sources)Cannabis dependence; Translations: [Cannabis dependence, uncomplicated]Onset: 999320-13-3361XrdbvslJtmfzzkud-igrrcel disorders (2 sources)Drug use complicating childbirth; Translations: [Cannabis use, unspecified, uncomplicated]Onset: 14-39-6974HdkolcbnQapybepbqhjb (1 source)CONTACT W/AND (SUSP) EXPOS COVID-19; Translations: [CONTACT W/AND (SUSP) EXPOS COVID-19]Onset: 11-21-2021 Past or Other Problems Problem ClassificationProblemDateDocumented DateEpisodic/ChronicImmunizations and screening for infectious disease (5 sources)Encounter for screening for infections with a predominantly sexual mode of transmission; Translations: [Contact with and (suspected) exposure to infections with a predominantly sexual mode of transmission]Onset: 04-30-2021 EpisodicOther female genital disorders (4 sources)Other specified noninflammatory disorders of vagina; Translations: [OTH SPEC NONINFLAMMATORY D/O VAGINA]Onset: 07-73-0252SocbusxoQnkqaqdl codes; unclassified (1 source)Less than 8 weeks gestation of ; Translations: [< 8 WEEKS GESTATION ]Onset: 26-32-8102Ijmxoxxt Results Test NameValueInterpretationReference RangeFacilityUS PELVIC COMPLETE W/ TVon [id number] PELVIC COMPLETE W/ TVEXAM: US PELVIC COMPLETE W/ TV HISTORY: PCOS. Abnormal uterine bleeding. Breakthrough bleeding. LMP 06/13/2024. A1. COMPARISON: None available. TECHNIQUE: Two-dimensional transabdominal grayscale and color Doppler ultrasound imaging of the pelvis was performed. Transvaginal was performed. FINDINGS: UTERUS 8.5 x 3.2 x 6.3 cm The uterus is anteverted in position and demonstrates a heterogeneous echotexture. ENDOMETRIUM 0.9 cm The endometrium demonstrates a normal, homogeneous echotexture. RIGHT OVARY 2.8 x 1.5 x 2.6 cm Ovarian volume: 5.7 mL The right ovary demonstrates a normal echotexture. There is normal color Doppler flow. LEFT OVARY 2.5 x 1.0 x 2.3 cm Ovarian volume: 3.0 mL The left ovary demonstrates a normal echotexture. There is normal color Doppler flow. No fluid is present within the cul-de-sac. IMPRESSION: 1. Heterogeneous uterine echotexture. 2. Normal color Doppler evaluation of the bilateral ovaries. Interpreted by: Electronically signed by APPLE ESCOBAR II, MD, PHD at 03-Jul-2024 08:20:53 PM [facility] TeleradiologyNormalNot AvailableComment on above:Order Comment: US PELVIS-TRANSVAG IF INDICATED Patient's last menstrual period was 06/13/2024.ALL CBC WITH AUTO DIFFon 13-02-2424BSFPRPCOI ABSOLUTE [id number] HealthcareBasophils/100 WBC (Bld)0.5 %0.2 - 2.0 %[facility] CenterEosinophils/100 WBC (Bld)1 %0.9 - 7.0 %[facility] Erythrocyte distribution width (RBC) [Ratio]11.4 %11.0 - 15.0 %[facility] Hematocrit (Bld) [Volume fraction]34.5 %Low36.0 - 48.0 %[facility] Hemoglobin (Bld) [Mass/Vol]11.9 g/dLLow12.0 - 16.0 g/dLResearch Medical CenterIMMATURE GRANULOCYTES ABS AUTO0.02NOCitizens Memorial HealthcareImmature granulocytes/100 WBC (Bld)0.2 % 0.0 - 0.5 %[facility] CenterInterpretation and review of laboratory results AbnormalNOCitizens Memorial HealthcareLYMPHOCYTES ABSOLUTE AUTO1.8[facility] Lymphocytes/100 WBC (Bld)21.7 %20.5 - 60.0 %[facility] CareH (RBC) [Entitic mass]30.4 pg26.7 - 34.0 pgNOCoxHealthHC (RBC) [Mass/Vol]34.5 g/dL29.9 - 35.2 g/dLUniversity of Missouri Health CareV (RBC) [Entitic vol]88 fL81.0 - 99.0 fLResearch Medical CenterMONOCYTES ABSOLUTE AUTO0.4NOCitizens Memorial HealthcareMonocytes/100 WBC (Bld)4.3 % 1.7 - 12.0 %[facility] CenterNEUTROPHILS ABSOLUTE AUTO6.1[facility] Neutrophils/100 WBC (Bld)72.3 %43.0 - 75.0 %[facility] Medical CenterPlatelet mean volume (Bld) [Entitic vol]9.9 fL9.5 - 13.5 fLResearch Medical CenterTB EO #0.1[facility] TBH FSO481NIEK [facility] CenterTB RBC3.92LowNOMS [facility] Medical CenterTB WBC8.4NOCitizens Memorial Healthcare CLINISYNCResearch Medical CenterHCG ( test) Ql (U)on 71-49-6358Qlohyagseuqvah and review of laboratory resultsNormalNOMS HealthcarePreg Test, UrNegative NegativeNOMS HealthcareNOMS HealthcareUrinalysis macro (dipstick) panel (U)on 32-60-8614Uxfdmxxcc, UANegativeNegative - 4(70) +++ mg/dLNOMS HealthcareBlood, UAPositiveNegative - 50 Luis/mcLNOMS HealthcareComment on above:smallClarity, UA ClearNOMS HealthcareColor, UAYellowNOMS HealthcareGlucose, UANegativeNegative - 2000(110) ++++ mg/dLNOMS HealthcareInterpretation and review of laboratory resultsAbnormalNOMS HealthcareKetones, UANegativeNegative - 160(16) ++++ mg/dL NOMS HealthcareLeukocytes, UANegativeNegative - 500+++ Telma/mcLNOMS Healthcare Nitrite, UANegativeNegative - PositiveNOMS HealthcarepH, UA6.55 - 9NOMS HealthcareProtein, UATraceNegative - 2000(20) ++++ mg/dLNOMS HealthcareSpec Grav, UA1.031 - 1.03NOMS HealthcareUrobilinogen, UA0.20.2 - 12 mg/dLNOMS HealthcareNOMS HealthcareB hCG Qualon 96-76-0820Jylc HCG ( test) Ql NegativeNoOhioHealth Arthur G.H. Bing, MD, Cancer CenterComment on above:Performed By: #### [id number] #### Zackery [facility] [address], [place] [address]QMVqm 42-01-7814Uyyzs gap [Moles/Vol]14 mmol/LNormal6-16[facility] SystemComment on above:Performed By: #### [id number] #### Zackery [facility] [address], [place] [address]Clckols [Mass/Vol]9.0 mg/dLNormal8.9-11.1FOhioHealth O'Bleness HospitalComment on above:Performed By: #### [id number] #### Zackery [facility] [address], [place] [address]Edgbviik [Moles/Vol]105 mmol/UTngiiy309-258NqlrekBlanchard Valley Health SystemComment on above:Performed By: #### [id number] #### [facility] [address], [place] [address]UX5 [Moles/Vol]21 mmol/VErmjar39-60QzitonBlanchard Valley Health System Comment on above:Performed By: #### [id number] #### [facility] [address], [place] [address]Nucgqoacsy [Mass/Vol]0.7 mg/dLNormal0.5-1.3FOhioHealth O'Bleness HospitalComment on above:Performed By: #### [id number] #### [facility] [address], [place] [address]Rzxywrp [Mass/Vol]124 mg/vFOaxbuy04-284PsjjagBlanchard Valley Health SystemComment on above:Performed By: #### [id number] #### [facility] [address], [place] [address]Kkfizqzqw [Moles/Vol]3.3 mmol/LLow3.5-5.3FOhioHealth O'Bleness HospitalComment on above:Performed By: #### [id number] #### [facility] [address], [place] [address]Pxvbjt [Moles/Vol]137 mmol/YNtynxa559-751UosfbqBlanchard Valley Health SystemComment on above:Performed By: #### [id number] #### [facility] [address], [place] [address]Fpfn nitrogen [Mass/Vol]10 mg/dLNormal5-21[facility] SystemComment on above:Performed By: #### [id number] #### [facility] [address], [place] [address]Ondf nitrogen/Creatinine [Mass ratio]14 No FhtynTtogbu95-15 [facility] SystemComment on above:Performed By: #### [id number] #### [facility] [address], [place] [address]YCF w/ Auto Diffon 44-20-5144Mlwddodav/100 WBC (Bld)0.6 %Normal 0.0-2.0[facility] SystemComment on above:Performed By: #### [id number] #### [facility] [address] [place] [address]Icrdzxpwu/Leukocytes Auto (Bld) [Pure # fraction]0.1 E9/LNormal 0.0-0.2FOhioHealth O'Bleness HospitalComment on above:Performed By: #### [id number] #### [facility] [address] [place] [address]Yeyzjuleudp (Bld) [#/Vol]0.1 E9/LNormal0.0-0.5FOhioHealth O'Bleness HospitalComment on above:Performed By: #### [id number] #### [facility] [address] [place] [address]Dmhdtljqnkq/100 WBC (Bld)1.0 %Normal0.0-8.0[facility] SystemComment on above:Performed By: #### [id number] #### [facility] [address] [place] [address]Qscixojgffi distribution width (RBC) [Ratio]12.5 %Normal 10.9-14.2FOhioHealth O'Bleness HospitalComment on above:Performed By: #### [id number] #### [facility] [address] [place] [address]Ftezetuido (Bld) [Volume fraction]38.8 %Nlhsin62.0-46.0[facility] SystemComment on above:Performed By: #### [id number] #### [facility] [address] [place] [address]Dsirogyagp (Bld) [Mass/Vol]13.5 g/eQSywwzm46.0-16.0[facility] SystemComment on above:Performed By: #### [id number] #### [facility] [address] [place] [address]Clotgxhyeky (Bld) [#/Vol]1.6 E9/LNormal1.0-4.0[facility] SystemComment on above:Performed By: #### [id number] #### [facility] [address] [place] [address]Fftihfxuucd/100 WBC (Bld)15.5 %Lwrfvs06.0-50.0[facility] SystemComment on above:Performed By: #### [id number] #### [facility] [address] [place] [address]AUO (RBC) [Entitic mass]30.8 asXfdxxv60.0-34.0[facility] SystemComment on above:Performed By: #### [id number] #### [facility] [address] [place] [address]KDGG (RBC) [Mass/Vol]34.9 g/aINaqiml56.4-36.0[facility] SystemComment on above:Performed By: #### [id number] #### [facility] [address] [place] [address]SMQ (RBC) [Entitic vol]88.0 dJRythky46.0-100.0[facility] SystemComment on above:Performed By: #### [id number] #### [facility] [address] [place] [address]Fxszyxali (Bld) [#/Vol]0.4 E9/LNormal0.2-1.0[facility] SystemComment on above:Performed By: #### [id number] #### [facility] [address] [place] [address]Acdqogtweyb (Bld) [#/Vol]8.1 E9/LHigh2.0-7.5FOhioHealth O'Bleness HospitalComment on above:Performed By: #### [id number] #### [facility] [address] [place] [address]Kyevaqaaoct/100 WBC (Bld)79.4 %High36.0-75.0[facility] SystemComment on above:Performed By: #### [id number] #### [facility] [address], [place] [address]Nmzykugk142.0 E9/GAcsxpm074.0-500.0[facility] Comment on above:Performed By: #### [id number] #### [facility] [address], [place] [address]Cxiwtpuf mean volume (Bld) [Entitic vol]7.8 fLNormal6.4-10.8 [facility] SystemComment on above:Performed By: #### [id number] #### [facility] [address], [place] [address]JJO (Bld) [#/Vol]4.4 E12/LNormal4.3-5.9[facility] SystemComment on above:Performed By: #### [id number] #### [facility] [address] [place] [address]QCW corrected for nucl RBC Auto (Bld) [#/Vol]10.1 E9/LNormal 4.0-11.0[facility] SystemComment on above:Performed By: #### [id number] #### [facility] [address], [place] [address]BFNYCINHINlfygqm By: SYSTEM SYSTEM on 78-87-7635Nhhhclw [Mass/Vol]4.2 g/dLNormal3.3 - 5.0 gm/dLRemisol ChemAlbumin/Globulin [Mass ratio] 1.4 {ratio}Normal1.1 - 2.2Remisol ChemALP [Catalytic activity/Vol]51 [iU]/d Olbmcl27 - 98 Int._Unit/LRemisol ChemALT No additional P-5'-P [Catalytic activity/Vol]9 [iU]/dNormal6 - 46 Int._Unit/LRemisol ChemAnion gap [Moles/Vol]14 mmol/LNormal6 - 16 mEq/LRemisol ChemAST [Catalytic activity/Vol]13 [iU]/dNormal 5 - 43 Int._Unit/LRemisol ChemBilirubin [Mass/Vol]0.6 mg/dLNormal0.0 - 1.1 mg/dL Remisol ChemBilirubin.direct [Mass/Vol]0.1 mg/dLNormal0.0 - 0.4 mg/dLRemisol ChemBilirubin.indirect [Mass or moles/Vol]0.5 mg/dLNormal0.1 - 0.9 mg/dLRemisol ChemCalcium [Mass/Vol]9.0 mg/dLNormal8.9 - 11.1 mg/dLRemisol ChemChloride [Moles/Vol]105 mmol/HIxwxzv811 - 111 mmol/LRemisol ChemCO2 [Moles/Vol]21 mmol/L Keaocr80 - 31 mmol/LRemisol ChemCreatinine [Mass/Vol]0.7 mg/dLNormal0.5 - 1.3 mg/dLRemisol UkadqFEA976 mL/min/1.73 l4Kdvtuf>=59mL/min/1.73 t0Zmpadew Chem Globulin (S) [Mass/Vol]3.0 g/dLNormal1.4 - 4.0 gm/dLRemisol ChemGlucose [Mass/Vol]124 mg/bYDshdep57 - 199 mg/dLRemisol ChemLipase [Catalytic activity/Vol]15 U/IRhbitk91 - 58 unit/LRemisol ChemPotassium [Moles/Vol]3.3 mmol/LLow3.5 - 5.3 mmol/LRemisol ChemProtein [Mass/Vol]7.2 g/dLNormal6.0 - 7.8 gm/dLRemisol ChemSodium [Moles/Vol]137 mmol/BPztysh357 - 145 mmol/LRemisol Chem Urea nitrogen [Mass/Vol]10 mg/dLNormal5 - 21 mg/dLRemisol ChemUrea nitrogen/Creatinine [Mass ratio]14 mg/hqAfkbar64 - 20Remisol ChemED Clinical Summaryon [id number] Clinical SummaryED Clinical Summary [address] [address] ED Clinical Summary Person Information Name: RUTH GROSSMAN [facility] Age: 28 Years : 1995 Sex: Female Language: Australian PCP: Myrna Tenorio MD Marital Status: Single Phone: [phone] Visit Id: Visit Reason: Nausea and vomiting; Abdominal pain; ABD PAIN, DIZZY, VOMITING Speciality: Acuity: 3 Enc Type: Emergency Med Service: Emergency Arrival: 05/06/2024 08:51:09 Discharge: 05/06/2024 13:09:20 LOS: 000 04:18 Checkin: 05/06/2024 08:51:09 Checkout: 05/06/2024 13:09:20 Dispo Type: Home (Routine DC) EVENTS: Event Name Event Status Request Date/Time Start Date/Time Complete Date/Time Arrive Complete 05/06/2024 08:51:09 05/06/2024 08:51:09 05/06/2024 08:51:09 Document Home Meds Request 05/06/2024 08:51:09 Triage Complete 05/06/2024 08:51:09 05/06/2024 09:09:26 05/06/2024 09:09:26 Bed Assign Complete 05/06/2024 09:01:30 05/06/2024 09:01:30 05/06/2024 09:01:30 Dr Exam Complete 05/06/2024 09:01:30 05/06/2024 09:04:12 05/06/2024 09:04:12 RN Exam Complete 05/06/2024 09:01:30 05/06/2024 10:25:43 05/06/2024 10:25:43 Registration Complete 05/06/2024 09:04:12 05/06/2024 09:33:47 05/06/2024 09:33:47 Meds Admin Complete 05/06/2024 09:07:45 05/06/2024 09:47:32 Pending Labs Complete 05/06/2024 09:07:45 05/06/2024 10:09:02 Lab Complete 05/06/2024 09:07:45 05/06/2024 09:43:40 Pending Labs Complete 05/06/2024 09:17:04 05/06/2024 09:17:04 05/06/2024 09:43:40 Lab Complete 05/06/2024 09:17:04 05/06/2024 09:17:04 05/06/2024 09:43:40 Pending Labs Complete 05/06/2024 09:29:05 05/06/2024 09:29:05 05/06/2024 09:29:06 Reg Complete Request 05/06/2024 09:33:47 Reg Bed Request Complete 05/06/2024 09:33:47 05/06/2024 09:33:47 05/06/2024 09:33:47 Meds Admin Complete 05/06/2024 10:28:21 05/06/2024 10:38:11 Meds Admin Complete 05/06/2024 12:49:26 05/06/2024 13:03:41 Discharge Complete 05/06/2024 12:53:06 05/06/2024 13:09:28 05/06/2024 13:09:28 Transfer Complete 05/06/2024 13:09:28 05/06/2024 13:09:28 05/06/2024 13:09:28 ADDRESS: [address] [place] [phone] PHYS DOC NOTES: MEDICAL INFORMATION: Prescriptions Given: New Medications [facility]/pharmacy #[id number], [address], [place] [id number], [phone] dicyclomine (dicyclomine 20 mg Tab) 1 Tablets By Mouth 3 times a day for 7 Days. Refills: 0. Medications to Continue Taking That Have Changed [facility]/pharmacy #[id number], [address], [place] [id number], [phone] START: omeprazole (omeprazole 20 mg Cap-DR) 1 Capsules By Mouth every day. Refills: 0. START: ondansetron (ondansetron 4 mg Dis Tab) 1 Tablets By Mouth every 6 hours for 3 Days. Refills:0. Other Medications START: omeprazole (omeprazole 20 mg Cap-DR) 1 Capsules By Mouth every day. Refills: 0. START: ondansetron (Zofran ODT 4 mg Tab-Dis) 1 Tablets By Mouth every 8 hours as needed Nausea/Vomiting. first line nausea. Refills: 0. START: ondansetron (Zofran ODT 4 mg Tab-Dis) 1 Tablets By Mouth every 6 hours as needed Nausea/Vomiting. Refills: 0. Medications to Continue with No Changes Other Medications citalopram (citalopram 20 mg Tab) norethindrone (Incassia 0.35 mg oral tablet) promethazine (promethazine 12.5 mg oral tablet) 1 Tablets By Mouth every 8 hours as needed as needed for nausea/vomiting. second line nausea. Refills: 0. PATIENT EDUCATION INFORMATION: Instructions: Follow up: With: Address: When: Marito Hernandez [address], [address], [facility] [address] [place] [phone] Business (1) In 3 days 05/09/2024 With: Address: When: Myrna Tenorio [address] [place] [address] Business (1) In 3 days DIAGNOSIS: Cyclic vomiting syndromeNormalFisher Mcwilliams Medical CenterED Note-Physicianon [id number] Note-PhysicianED Note-Physician Basic Information Time Seen: Alex Correia DO 05/06/2024 09:04 History of Present Illness 28 female presents emergency department with nausea vomiting patient states this started here over the last 24 hours specifically worse this morning. And abdominal discomfort. Patient has had this inthe past it does sound like she has history of cannabis hyperemesis syndrome. She denies any prior abdominal surgeries she states there is chance of however the completion of her last menstrual cycle was about 3 weeks ago. She reports no urinary symptoms she took no medications prior to arrival. No other aggravating or relieving factors no other associated symptoms no other prior treatments or complaints. Family: Reviewed and noncontributory Social: lives at home Review of systems negative unless otherwise specified in the HPI. Physical Exam General: The patient appears well and in no apparent distress. Patient is resting comfortably on cart. Skin: Warm, dry, no pallor noted. Head: Normocephalic, atraumatic Neck: No JVD Eye: PERRLA, EOMI ENT: Dry mucus membranes Cardiovascular: Regular rate normal peripheral perfusion Respiratory: No respiratory distress no accessory muscle use no obvious audible wheezing Chest Wall: no deformity Musculoskeletal: normal ROM, no deformity, no swelling GI: Soft no obvious distention. No rebound or rigidity. No guarding. No tenderness. Neurological: A&O moves all extremities equal strength and symmetry Psychiatric: Cooperative and appropriate Medical Decision Making Workup in the ER has been reviewed and noted. The patient is found to have relatively benign Workuphere. Patient is feeling better after multiple medications here and given some IV fluid she was able to tolerate p.o. challenge. She did state that she was continuing to have some abdominal cramping therefore was treated with Bentyl ultimately discharged home to follow-up with GI in the outpatient setting. She is discharged home with supportive measures at home as well. Assessment/Plan Cyclic vomiting syndrome (R11.15: Cyclical vomiting syndrome unrelated to migraine) Orders: dicyclomine, 20 mg = 1 tab(s), Oral, TID, X 7 day(s), # 21 tab(s), Refills(s) 0, Pharmacy: [facility]/pharmacy #[id number], 160, cm, 05/06/24 9:09:00 EDT, Height/Length Dosing, 61, kg, 05/06/24 9:09:00 EDT, Weight Dosing dicyclomine, 20 mg = 2 mL, Injection, IntraMuscular, Once, Stop date 05/06/24 12:49:00 EDT, STAT, Start date 05/06/24 12:49:00 EDT, 05/06/24 12:49:00 EDT haloperidol, 2.5 mg = 0.5 mL, Injection, IntraMuscular, Once, Stop date 05/06/24 10:28:00 EDT, STAT, Start date 05/06/24 10:28:00 EDT, 05/06/24 10:28:00 EDT lorazepam, 1 mg = 0.5 mL, Injection, IV Push, Once, Stop date 05/06/24 10:27:00 EDT, STAT, Start date 05/06/24 10:27:00 EDT, 05/06/24 10:27:00 EDT omeprazole, 20 mg = 1 cap(s), Oral, Daily, # 30 cap(s), Refills(s) 0, Pharmacy: [facility]/pharmacy #[id number],160, cm, 05/06/24 9:09:00 EDT, Height/Length Dosing, 61, kg, 05/06/24 9:09:00 EDT, Weight Dosing ondansetron, 4 mg = 1 tab(s), Oral, q6hr, X 3 day(s), # 10 tab(s), Refills(s) 0, Pharmacy: [facility]/pharmacy #[id number], 160, cm, 05/06/24 9:09:00 EDT, Height/Length Dosing, 61, kg, 05/06/24 9:09:00 EDT, Weight Dosing pantoprazole, 40 mg = 10 mL, Injection, IV Push, Once, Stop date 05/06/24 9:07:00 EDT, STAT, Start date 05/06/24 9:07:00 EDT, 05/06/24 9:07:00 EDT promethazine 25 mg + Sodium Chloride 0.9% intravenous solution 50 mL, Injection, IV Piggyback, Once, Stop date 05/06/24 9:07:00 EDT, STAT, Start date 05/06/24 9:07:00 EDT, 153 mL/hr, Infuse over 20 minute(s) Sodium Chloride 0.9% intravenous solution, 1,000 mL, Soln-IV, IV, Once, Stop date 05/06/24 9:07:00 EDT, STAT, Start date 05/06/24 9:07:00 EDT, Infuse over 61, minute(s) Basic Metabolic Panel Beta hCG Qual CBC w/ Auto Diff eGFR Extra Blue Tube Extra SST Tube Hepatic Function Panel Lipase Level UA with Cult Rflx Medications Administered Given Ativan 2 mg/mL Injection, 1 mg, IV Push Haldol 5 mg/mL Injection, 2.5 mg, IntraMuscular NS 1000 ml Bolus, 1000 mL, IV pantoprazole 40 mg IV Inj, 40 mg, IV Push [id number] [F] 25 mg + Sodium Chloride 0.9% IV Sindi 50 mL [F] 50 mL, IV Piggyback Disposition Plan Discharge Prescription List Prescriptions dicyclomine 20 mg Tab, 20 mg= 1 tab(s), Oral, TID omeprazole 20 mg Cap-DR, 20 mg= 1 cap(s), Oral, Daily ondansetron 4 mg Dis Tab, 4 mg= 1 tab(s), Oral, q6hr Follow-up With When Contact Information Marito Hernandez In 3 days 05/09/2024 EDT [address], [address] [phone] Business (1) Additional Instructions: Myrna Tenorio In [address] [place] [address]- Business (1) Additional Instructions: Problem List/Past Medical History Ongoing Tetrahydrocannabinol (THC) dependence Historical No qualifying data Procedure/Surgical History EGD - esophagogastroduodenoscopy (11/26/2023), None. Med (more content not included)...[facility] CenterComment on above:Result Comment: Electronically Signed By: Alex Correia DO\.br\Date and Time Signed: 05/06/24 12:53EDTED Patient Education Noteon [id number] Patient Education NoteED Patient Education NoteNormKindred Healthcare Patient Summaryon [id number] Patient SummaryED Patient Summary [address] [address] Patient Discharge Instructions Person Information Name: RUTH GROSSMAN Age: 28 Years Arrival Date: 05/06/2024 08:51:09 Discharge Diagnosis: Cyclic vomiting syndrome Primary Care Physician: Myrna Tenorio MD Provider Information Primary Provider: Alex Correia DO Advanced Cream Cheese Maker:None The exam and treatment you received in the Emergency Department were for an urgent problem and are not intended as complete care. It is important that you follow up with a doctor, nurse practitioner,or physician???s study assistant for ongoing care. If your symptoms become worse or you do not improve asexpected and you are unable to reach your usual health care provider, you should return to the Emergency Department. We are available 24 hours a day. RUTH GROSSMAN has been given the following list of patient education materials, prescriptions and follow-up instructions: Follow-up Instructions: With: Address: When: Marito Hernandez [address], [address], [facility] [address] [place] [phone] Business (1) In 3 days 05/09/2024 With: Address: When: Myrna Tenorio [address] [place] [address] Business (1) In 3 days In the event that this physician does not participate in your insurance network, please consult with your insurance company to find a nearby participating provider. Patient Education Materials: A MESSAGE TO ALL PATIENTS REGARDING OPIOIDS PRESCRIPTION OPIOIDS: WHAT YOU NEED TO KNOW Prescription opioids can be used to help relieve xmuvvifv-kb-yrdjjt pain and are often prescribed following a [...] as well, even when taken as directed: ??? Tolerance???meaning you might need to take more of the medication for the same pain relief ??? Physical dependence???meaning you have symptoms of withdrawal when a medication is stopped ??? Increased sensitivity to pain ??? Constipation ??? Nausea, vomiting, and dry mouth ??? Sleepiness and dizziness ??? Confusion ??? Depression ??? Low levels of testosterone that can result in lower sex drive, energy, and strength ??? Itching and sweating RISKS ARE GREATER WITH: ??? History of drug misuse, substance use disorder, or overdose ??? Mental health conditions (such as depression or anxiety) ??? Sleep apnea ??? Older age (65 years and older) ??? Avoid alcohol while taking prescription opioids. Also, unless specifically advised by your health care provider, medications to avoid include: ??? Benzodiazepines (such as Xanax or Valium) ??? Muscle relaxants (such as Soma or Flexeril) ??? Hypnotics (such as Ambien or Lunesta) ??? Other prescription opioids KNOW YOUR OPTIONS Talk to your health care provider about ways to manage your pain that don???t involve prescription opioids. Some of these options may actually work better and have fewer risks and side effects. Options may include: ??? Pain relievers such as acetaminophen, ibuprofen, and naproxen ??? Some medication that are also used for depression or seizures ??? Physical therapy and exercise ??? Cognitive behavioral therapy, a psychological, goal-directed approach, in which patients learn how to modify physical, behavioral, and emotional triggers of pain and stress. IF YOU ARE PRESCRIBED OPIOIDS FOR PAIN: ??? Never take opioids in greater amounts or more often than prescribed. ??? Follow up with your primary health care provider. o Work together to create a plan on how to manage your pain. o Talk about ways to help manage your pain that don???t involve prescription opioids. o Talk about any and all concerns and side effects. ??? Help prevent misuse and abuse o Never sell or share prescription opioids. o Never use another person???s prescription opioids. ??? Store prescription opioids in a secure place and out of reach of others (this may include visitors, children, friends, and family). ??? Safely dispose of unused prescription opioids: Find your community drug take-back program or your pharmacy mail-back program, or flush them down the toilet, following guidance from the Food and Drug Administration (www.fda.gov/Drugs/ResourcesForYou). ??? Visit www.cdc.gov/drugoverdose to learn about the risks of opioid (more content not included)...[facility] CenterExsentara careplex hospital Blueon 05-06-2024 Tube Collected PlasmaYesInvalid Interpretation [facility] Comment on above:Performed By: #### [id number] #### [facility] [address] [place] [id number] By: SYSTEM SYSTEM on 15-24-1042Kckkbeley/100 WBC (Bld)0.6 %Normal0.0 - 2.0 %Remisol HemeBasophils/Leukocytes Auto (Bld) [Pure # fraction]0.1 E9/LNormal0.0 - 0.2 E9/LRemisol HemeEosinophils (Bld) [#/Vol]0.1 E9/LNormal0.0 - 0.5 E9/LRemisol HemeEosinophils/100 WBC (Bld)1.0 %Normal0.0 - 8.0 %Remisol HemeErythrocyte distribution width (RBC) [Ratio]12.5 %Fhdjwn95.9 - 14.2 %Remisol HemeHematocrit (Bld) [Volume fraction]38.8 %Mzhkbj70.0 - 46.0 % Remisol HemeHemoglobin (Bld) [Mass/Vol]13.5 g/kTRluaxg30.0 - 16.0 gm/dLRemisol HemeLymphocytes (Bld) [#/Vol]1.6 E9/LNormal1.0 - 4.0 E9/LRemisol Heme Lymphocytes/100 WBC (Bld)15.5 %Qtbqep44.0 - 50.0 %Remisol HemeMCH (RBC) [Entitic mass]30.8 jlFsvjzc04.0 - 34.0 pgRemisol HemeMCHC (RBC) [Mass/Vol]34.9 g/dL Kgppgg91.4 - 36.0 gm/dLRemisol HemeMCV (RBC) [Entitic vol]88.0 lHEwiwtz35.0 - 100.0 fLRemisol HemeMonocytes (Bld) [#/Vol]0.4 E9/LNormal0.2 - 1.0 E9/LRemisol HemeMonocytes/100 WBC (Bld)3.5 %Low4.0 - 14.0 %Remisol HemeNeutrophils (Bld) [#/Vol]8.1 E9/LHigh2.0 - 7.5 E9/LRemisol HemeNeutrophils/100 WBC (Bld)79.4 %High 36.0 - 75.0 %Remisol VdviUtbnosvo727.0 E9/NUdpewt748.0 - 500.0 E9/LRemisol Heme Platelet mean volume (Bld) [Entitic vol]7.8 fLNormal6.4 - 10.8 fLRemisol HemeRBC (Bld) [#/Vol]4.4 E12/LNormal4.3 - 5.9 E12/LRemisol HemeWBC corrected for nucl RBC Auto (Bld) [#/Vol]10.1 E9/LNormal4.0 - 11.0 E9/LRemisol HemeHep Func Panelon 14-78-9980Ncwhtyr [Mass/Vol]4.2 g/dLNormal3.3-5.0[facility] Comment on above:Performed By: #### [id number] #### [facility] [address], [place] [address]Mrllvjg/Globulin (S) [Mass conc ratio]1.7Mkoquz1.1-2.2FOhioHealth O'Bleness HospitalComment on above:Performed By: #### [id number] #### [facility] [address], [place] [address]DQQ [Catalytic activity/Vol]51 Int._Unit/KKgpmhm67-26FqvqxxBlanchard Valley Health SystemComment on above:Performed By: #### [id number] #### [facility] [address] [place] [address]QFF No additional P-5'-P [Catalytic activity/Vol]9 Int._Unit/L Normal6-46[facility] SystemComment on above:Performed By: #### [id number] #### [facility] [address] [place] [id number] [Catalytic activity/Vol]13 Int._Unit/LNormal5-43[facility] SystemComment on above:Performed By: #### [id number] #### [facility] [address], [place] [address]Gglerysvu [Mass/Vol]0.6 mg/dLNormal0.0-1.1FOhioHealth O'Bleness HospitalComment on above:Performed By: #### [id number] #### [facility] [address], [place] [address]Zifciwnkq.direct [Mass/Vol]0.1 mg/dLNormal0.0-0.4FOhioHealth O'Bleness HospitalComment on above:Performed By: #### [id number] #### [facility] [address], [place] [address]Exbytdxgn.indirect [Mass or moles/Vol]0.5 mg/dLNormal0.1-0.9 [facility] SystemComment on above:Performed By: #### [id number] #### [facility] [address], [place] [address]Dmjvijcz (S) [Mass/Vol]3.0 g/dLNormal1.4-4.0[facility] SystemComment on above:Performed By: #### [id number] #### [facility] [address], [place] [address]Rxrhilz [Mass/Vol]7.2 g/dLNormal6.0-7.8[facility] SystemComment on above:Performed By: #### [id number] #### [facility] [address], [place] [address]Nczyyx Levelon 92-40-2015Ugdwyr [Catalytic activity/Vol]15 U/L Wmdqdl30-35UkybqjBlanchard Valley Health SystemComment on above:Performed By: #### [id number] #### [facility] [address], [place] [address]YKFGYCLBMcocimn By: Karely Miller on 75-07-3740Shih HCG ( test) QlNegative (05/06/24 9:11 AM)[facility] SeroUA with Cult Rflxon 02-53-1604Hcgqmklmr Ql (U)NegativeNormalNegativeBlanchard Valley Health SystemComment on above:Performed By: #### [id number] #### [facility] [address], [place] [address]Sxrvwqg (U)ClearNormalClearBlanchard Valley Health SystemComment on above:Performed By: #### [id number] #### [facility] [address], [place] [address]Zsler (U)Light-YellowNormalYellowBlanchard Valley Health System Comment on above:Result Comment: Microscopic readings are only performed on those samples that meet specific criteria set forth by [facility].Performed By: #### [id number] #### [facility] [address], [place] [address]Kxloelk Ql (U)NegativeNormalNegativeBlanchard Valley Health System Comment on above:Performed By: #### [id number] #### [facility] [address] [place] [address]Mpetekpxbw Auto test strip (U) [Mass/Vol]NegativeNormalNegative [facility] SystemComment on above:Performed By: #### [id number] #### [facility] [address] [place] [address]Bmuecgy Auto test strip Ql (U)NegativeNormalNegativeBlanchard Valley Health SystemComment on above:Performed By: #### [id number] #### [facility] [address] [place] [address]Cdaafejry esterase Auto test strip Ql (U)NegativeNormalNegative [facility] SystemComment on above:Performed By: #### [id number] #### [facility] [address] [place] [address]Zdhslya Auto test strip Ql (U)NegativeNormalNegSelect Medical OhioHealth Rehabilitation HospitalComment on above:Performed By: #### [id number] #### [facility] [address] [place] [address]eE (U)8.0 [pH]Invalid Interpretation Code5.0-9.0[facility] SystemComment on above:Performed By: #### [id number] #### [facility] [address] [place] [address]Fbujtiv Ql (U)NegativeNormalNegSelect Medical [facility]Health Rehabilitation Hospital Comment on above:Performed By: #### [id number] #### [facility] [address] [place] [address]Akmnfbnk gravity (U) [Rel density]1.022Invalid Interpretation Code1.005-1.030[facility] SystemComment on above:Performed By: #### [id number] #### [facility] [address] [place] [address]Obbeqczcsaeq (U) [Mass/Vol]NegativeNormalNegativeBlanchard Valley Health SystemComment on above:Performed By: #### [id number] #### [facility] [address] [place] [address]Ygks of Urine collection methodClean CatchNormalBlanchard Valley Health SystemComment on above:Performed By: #### [id number] #### [facility] [address] [place], [place] [address]XXRWESBQCIJlersln By: SYSTEM SYSTEM on 00-63-4650Lasuzvtcg Ql (U)NegativeNormalNegativemg/dLHILLCREST HOS[facility]ITAL [facility] UA Auto SSClarity (U)Clear (05/06/24 9:43 AM)NormalClearFTM UA Auto SSColor (U)Light-Yellow 1 (05/06/24 9:43 AM)NormalYellowHILLCREST HOSPITAL [facility] UA Auto SSComment on above:Interpretive Data: Microscopic readings are only performed on those samples that meet specific criteria set forth by [facility].Glucose Ql (U) NegativeNormalNegativemg/dLFT UA Auto SSHemoglobin Auto test strip (U) [Mass/Vol]NegativeNormalNegativemg/dLHILLCREST HOSPITAL [facility] UA Auto SSKetones Auto test strip Ql (U)NegativeNormalNegativemg/dLFT UA Auto SSLeukocyte esterase Auto test strip Ql (U)NegativeNormalNegativeLeu/uLFT UA Auto SSNitrite Auto test strip Ql (U) NegativeNormalNegativemg/dLHILLCREST HOSPITAL [facility] UA Auto SSpH (U)8.0 *NA* (05/06/24 9:43 AM)Invalid Interpretation Code5.0 - 9.0[facility]A Auto SSProtein Ql (U)NegativeNormalNegativemg/dLHILLCREST HOSPITAL [facility] UA Auto SSSpecific gravity (U) [Rel density] 1.022 *NA* (05/06/24 9:43 AM)Invalid Interpretation Code1.005 - 1.030[facility]A Auto SS Urobilinogen (U) [Mass/Vol]NegativeNormalNegativemg/dLHILLCREST HOSPITAL [facility] UA Auto SSURINALYSIS Ordered By: Alex Correia on 60-33-7352HZ Spec DescClean Catch (05/06/24 9:43 AM)NormalHILLCREST HOSPITAL [facility] UA Auto SS eGFRon 12-22-5828lYJB648 mL/min/1.73 k9Cobxam>=59[facility] SystemComment on above:Performed By: #### [id number] #### [facility] [address], [place] [address]Yxsfzhwh Letteron 12-42-8116Upmjjwmp LetterProvider Letter December 04, 2023 RUTH GROSSMAN [address] [place] [phone] : 1995 Dear Ruth, We have attempted to reach you. Please call our office today to schedule follow up appointment to review EGD results. Sincerely, [facility]/ Dr Ramos NormalMercy Health St. Vincent Medical Centerurgical Pathology Reporton [id number] Pathology Report[address] [place] [address]- Surgical Pathology Report Collected Date/Time: 11/26/2023 12:16 EDT Pathologist: Samuel HUSTON PhD, Nannette Molina Received Date/Time: 11/26/2023 13:54 EDT Rachel HUSTON, Yohannes Ramos MD, Yohannes Pacheco Surgical Pathology Report - 12/03/2023 12:58 EDT - Auth (Verified) Final Diagnosis A: DUODENUM, BIOPSY: - DUODENAL MUCOSA WITHIN NORMAL LIMITS. B: STOMACH, BIOPSY: - GASTRIC ANTRAL MUCOSA WITH MILD CHRONIC INACTIVE GASTRITIS. - NO INTESTINAL METAPLASIA. - NO H. PYLORI MICROORGANISMS IDENTIFIED WITH IMMUNOSTAIN. (Electronic Signature) Nannette Baker MD PhD 12/03/2023 12:58 Clinical Information Left sided abdominal pain, nausea, vomiting Pre-Op Diagnosis: Left sided abdominal pain, nausea, vomiting Procedure: EGD Post-Op Diagnosis: 1. Mild reflux esophagitis 2. Hiatal hernia 3. Mild gastropathy Specimen(s) Received A.Duodenal biopsy B.Gastric biopsy Gross Description A: Received in formalin labeled with patient name, number, and duodenal biopsy are fragments of gaxiola/pink tissue ranging from less than 0.1 cm up to 0.3 cm in greatest dimension. Specimen is entirely submitted in one cassette. B: Received in formalin labeled with patient name, number, and gastric biopsy are five fragments of gaxiola tissue ranging from less than 0.1 cm up to 0.5 cm in greatest dimension. Specimen is entirely submitted in one cassette. (DC) DC:[facility] Microscopic Description The use of one or more reagents in the above tests is regulated as an analyte specific reagent (ASR). The test or tests are ordered following initial H&E microscopic examination. The performance characteristics were determined by the Laboratory [facility]. They have not been cleared or approved by the US Food and Drug Administration. The FDA has determined that such clearance or approval is not necessary. These tests are used for clinical purposes. They should not be regarded as investigational or for research. Appropriate positive and negative controls are performed and are acceptable. [facility] CenterComment on above:Performed By: #### [id number] #### [facility] [address], [place] [address]Xaii OR Intraoperative Recordon [id number] OR Intraoperative RecordMain OR Intraoperative Record IntraOp Document Type FT Summary Primary Physician: Yohannes Ramos MD Finalized Date/Time: 11/30/23 12:05:12 Pt. Name: RUTH GROSSMAN LARRY Hernandez/Sex: 1995 Female Med Rec #: [id number] Physician: Yohannes Ramos MD Financial #: [id number] Pt. Type: O Room/Bed: / Admit/Disch: 11/26/23 11:01:11 - 11/26/23 23:59:59 Institution: Case Times FT Entry 1 Patient Times In Room 11/26/23 12:06:00 Out Room 11/26/23 12:18:00 Procedure Times Start 11/26/23 12:12:00 Stop 11/26/23 12:15:00 Anesthesia Times Start 11/26/23 12:06:00 Stop 11/26/23 12:18:00 Last Modified By: Porsha Mart RN 11/26/23 12:18:46 General Comments: 11/30/23 Chart opened for charge review per Elfego Manriquez RN. [place] Case Attendance FT Entry 1 Entry 2 Entry 3 Case Attendee Fernando CHOWDARY, Alex Smyth, Suly Del Rio [employer]ER, Gwen M Role Performed Anesthesiologist Scrub - Primary Staff - Other Image Editor Time In 11/26/23 12:06:00 11/26/23 12:06:00 11/26/23 12:06:00 Time Out 11/26/23 12:18:00 11/26/23 12:18:00 11/26/23 12:18:00 Procedure EGD(.) EGD(.) EGD(.) Comments Dr. Bianchi supervising help in room Last Modified By: Barron RN, Porsha Mart RN, Porsha Ocampo RN 11/26/23 12:18:47 11/26/23 12:18:47 11/26/23 12:18:47 Entry 4 Entry 5 Case Attendee Rachel HUSTON, Porsha Michel RN Role Performed Surgeon - Primary Distance Education Faculty Liaison - Primary Time In 11/26/23 12:06:00 11/26/23 12:06:00 Time Out 11/26/23 12:18:00 11/26/23 12:18:00 Procedure EGD(.) EGD(.) Comments Last Modified By: Barron SEGURA, Porsha Mart RN, Porsha 11/26/23 12:18:47 11/26/23 12:18:47 Perioperative Protocols FT Pre-Care Text: Implements protective measures prior to operative or invasive procedure, confirms identity before the operative or invasive procedure, verifies operative procedure, surgical site, and laterality Entry 1 Procedure(s) EGD(.) Patient Identity Birthday, ID Band Verified (select at Check, Patient least 2): Participation Consents / H and P Anesthesia Consent, Operative Site N/A Verified H&P, Surgery/Procedure Marking Verified Consent Surgical Site No Laterality Verified n/a Verified Procedure Verified Yes Correct Patient Yes Position Verified Availability Equipment, Medication Prep Dry n/a Verified (If Applicable) PreOp Antibiotic No Time Out Alex Tan, Given Participants Suly Smyth Schafer [employer]ER, Rachel Nelson MD, Barron Ceja RN, Porsha Time Out Complete 11/26/23 12:07:00 Outcomes Met? Yes Last Modified By: Porsha Mart RN 11/26/23 12:11:14 Post-Care Text: The patient is free from signs and symptoms of injury caused by extraneous objects Allergy Information FT Pre-Care Text: Verifies allergies Entry 1 Allergies Reviewed? Yes Allergies Reviewed Self/Patient With Outcomes Met? Yes Last Modified By: Porsha Mart RN 11/26/23 12:11:21 Post-Care Text: The patient received appropriate medication(s) safely administered during the perioperative period Surgical Procedures FT Entry 1 Procedure Description Procedure EGD Modifiers . Surgeon Description EGD with duodenal and gastric biopsies Primary Procedure Yes Primary Surgeon Rachel HUSTON, Yohannes Orozco Start 11/26/23 12:12:00 Stop 11/26/23 12:15:00 Anesthesia Type General Surgical Service Gastroenterology Wound Class 2 - Clean-Contaminated Last Modified By: Porsha Mart RN 11/26/23 12:15:47 General Case Data FT Pre-Care Text: Classifies surgical wound, implements aseptic technique, initiates traffic control Entry 1 Case Information OR ENDO 1 FT Case Level Level 2 Wound Class 2 - Clean-Contaminated Specialty Gastroenterology ASA Class 2 Preop Diagnosis LEFT SIDED ABDOMINAL Postop Same As Preop No PAIN ,NAUSEA AND VOMITING, THC DEPENDENT Postop Diagnosis Esophagitis, hiatal Outcomes Met? Yes hernia, gastropathy Last Modified By: Porsha Mart RN 11/26/23 12:15:57 Post-Care Text: The patient is free from signs and symptoms of infection Skin Assessment (Pre Procedure) FT Pre-Care Text: Implements protective measures to prevent skin/ tissue injury due to thermal or mechanical sources Evaluates for signs and symptoms of physical injury to skin and tissue Entry 1 Skin Integrity Intact, [place], Warm, & Skin Abnormality No Dry Outcomes Met? Yes Last Modified By: Porsha Mart RN 11/26/23 12:13:52 Post-Care Text: The patient is free from signs and symptoms of injury caused by extraneous objects Patient Positioning FT Pre-Care Text: Identifies physical alterations that require additional precautions for procedure-specific positioning, verifies presence of prosthetics or corrective devices, positions the patient, evaluates the patient for signs and symptoms of injury as a result of positioning Entry 1 Procedure EGD(.) Body Position Lateral, right side up Feet Uncross (more content not included)...[facility] Discharge Instructionson [id number] InstructionsDischarge Instructions RUTH GROSSMAN :1995 Visit Date:11/26/2023 Inpatient Discharge Instructions Your Care Team Admitting Physician - Yohannes Ramos MD Referring Physician - Yohannes Ramos MD Reason for Your Visit LEFT SIDED ABDOMINAL PAIN ,NAUSEA AND VOMITING, THC DEPENDENT Your Diagnosis Esophagitis, reflux Gastropathy Hernia, hiatal Tests Performed Pathology Tissue Exam -- Results Pending -- Please visit your patient portal for your results or contact your primary care physician. This Is Your Medications List citalopram (citalopram 20 mg Tab) norethindrone (Incassia 0.35 mg oral tablet) omeprazole (omeprazole 20 mg Cap-DR) ondansetron (Zofran ODT 4 mg Tab-Dis) ondansetron (Zofran ODT 4 mg Tab-Dis) promethazine (promethazine 12.5 mg oral tablet) Procedure History EGD - esophagogastroduodenoscopy (11/26/2023), None. Discharge Vitals Temperature (Temporal Artery) 36.6 ?C Heart Rate (Monitored) 59 Respiratory Rate 20 Blood Pressure 106/64 Height 160 cm Weight 61 kg What to do next Instructions From Your Doctor No qualifying data available. New Follow Up Appointments after Discharge Follow Up with Rachel HUSTON, Yohannes Orozco, [facility], [facility] When: Comments: Office will call Date and Time of Follow-up Appt. Where: [address] [place] [address], [address] [place] [phone] Medications What How Much When Instructions Next Dose Unchanged citalopram (citalopram 20 mg Tab) Unchanged norethindrone (Incassia 0.35 mg oral tablet) See instructions Unchanged omeprazole (omeprazole 20 mg Cap-DR) 1 Capsules By Mouth Every day Unchanged ondansetron (Zofran ODT 4 mg Tab-Dis) 1 Tablets By Mouth Every 8 hours as needed for Nausea/Vomiting first line nausea Unchanged ondansetron (Zofran ODT 4 mg Tab-Dis) 1 Tablets By Mouth Every 6 hours as needed for Nausea/Vomiting Unchanged promethazine (promethazine 12.5 mg oral tablet) 1 Tablets By Mouth Every 8 hours as needed for as needed for nausea/vomiting second line nausea Test Results No qualifying data available. Allergies No Known Allergies Problems Ongoing - Any problem that you are currently receiving treatment for. Tetrahydrocannabinol (THC) dependence Education Materials Hiatal Hernia A hiatal hernia occurs when part of the stomach slides above the muscle that separates the abdomen from the chest (diaphragm). A person can be born with a hiatal hernia (congenital), or it may develop over time. In almost all cases of hiatal hernia, only the top part of the stomach pushes through the diaphragm. Many people have a hiatal hernia with no symptoms. The larger the hernia, the more likely it is that you will have symptoms. In some cases, a hiatal hernia allows stomach acid to flow back into the tube that carries food from your mouth to your stomach (esophagus). This may cause heartburn symptoms. The development of heartburn symptoms may mean that you have a condition called gastroesophageal reflux disease (GERD). What are the causes? This condition is caused by a weakness in the opening (hiatus) where the esophagus passes through the diaphragm to attach to the upper part of the stomach. A person may be born with a weakness in thehiatus, or a weakness can develop over time. What increases the risk? This condition is more likely to develop in: ? Older people. Age is a major risk factor for a hiatal hernia, especially if you are over the age of50. ? women. ? People who are overweight. ? People who have frequent constipation. What are the signs or symptoms? Symptoms of this condition usually develop in the form of GERD symptoms. Symptoms include: ? Heartburn. ? Upset stomach (indigestion). ? Trouble swallowing. ? Coughing or wheezing. Wheezing is making high-pitched whistling sounds when you breathe. ? Sore throat. ? Chest pain. ? Nausea and vomiting. How is this diagnosed? This condition may be diagnosed during testing for GERD. Tests that may be done include: ? X-rays of your stomach or chest. ? An upper gastrointestinal (GI) series. This is an X-ray exam of your GI tract that is taken after you swallow a chalky liquid that shows up clearly on the X-ray. ? Endoscopy. This is a procedure to look into your stomach using a thin, flexible tube that has a tiny camera and light on the end of it. How is this treated? This condition may be treated by: ? Dietary and lifestyle changes to help reduce GERD symptoms. ? Medicines. These may include: ? Rxzm-dqz-gdqoupq antacids. ? Medicines that make your stomach empty more quickly. ? Medicines that block the production of stomach acid (H2 blockers). ? Stronger medicines to reduce stomach acid (proton pump inhibitors). ? Surgery to repair the hernia, if other treatments are not helping. If you have no symptoms, you may not need storm (more content not included)... [facility] CenterComment [facility]:Result Comment: Electronically Signed By: Ros SEGURA, Mónica\.anita\Date and Time Signed: 11/26/23 12:37EDTH&P Updateon 11-26-2023H&P UpdateH&P Update Patient: RUTH GROSSMAN Age: 28 years Sex: Female : 1995 Associated Diagnoses: None Author: Yohannes Ramos MD Preoperative Information Chief compliant/Indication for procedure: abd pain Chief Complaint as above Review of Systems All systems reviewed, negative except as mentioned above Physical Examination Vital Signs (last 24 hrs) Last Charted Temp Temporal 36.6 DegC (NOV 25 11:21) Heart Rate Monitored 64 bpm (NOV 25 11:21) SBP 132 mmHg (NOV 25 11:21) DBP 89 mmHg (NOV 25 11:21) Weight 61 kg (NOV 25 11:21) General: in Nad Abdomen: Soft, NTND Impression and Plan Diagnosis: [facility]d [facility] II Recordon [id number] OR PACU II RecordMain OR PACU II Record PACU Phase II Document Type FT Summary Primary Physician: Yohannes Ramos MD Finalized Date/Time: 11/26/23 13:07:11 Pt. Name: RUTH GROSSMAN /Sex: 1995 Female Med Rec #: [id number] Physician: Yohannes Ramos MD Financial #: [id number] Pt. Type: O Room/Bed: / Admit/Disch: 11/26/23 11:01:11 - Institution: Case Times PACU II FT Pre-Care Text: Identifies barriers to communication and implements measures to provide psychological support and determines knowledge level Develops individualized plan of care, and ensures continuity of care Maintains patient's dignity and privacy, and maintains patient confidentiality Identifies and reports philosophical, cultural, and spiritual beliefs and values Identifies individual values and wishes concerning care administers prescribed antibiotic therapy and immunizing agents as ordered, Evaluates postoperative tissue perfusion Implements thermoregulation measures, and monitors body temperature Evaluates postoperative respiratory statusEvaluates postoperative cardiac status Evaluates postoperative neurological status Assesses pain control, collaborated in initiating patient-controlled analgesia and implements alternative methods of pain control Verifies allergies, administers prescribed medications and solutions, evaluates response to medications Entry 1 In PACU II 11/26/23 12:20:00 Discharge from PACU 11/26/23 12:50:00 II Outcomes Met? Yes Last Modified By: Mónica Sommer RN 11/26/23 12:57:23 Post-Care Text: The patient demonstrates knowledge of the expected response to the operative or invasive procedure The patient's care is consistent with the individualized perioperative plan of care The patient's rightto privacy is maintained The patient's value system, lifestyle, ethnicity, and culture are considered, respected, and incorporated into the perioperative plan of care The patient participates in decisions affecting his or her perioperative plan of care. The patient is free from signs and symptoms of infection The patient has wound/tissue perfusion consistent with or improved from baseline levels established preoperatively The patient is at or returning to normothermia at the conclusion of the immediate postoperative period The patient's respiratory function is consistent with or improved from baseline levels established preoperativelyThe patient's cardiovascular status is consistent with or improved from baseline levels established preoperatively The patient's neurological status is consistent with or improved from baseline levels established preoperatively The patient demonstrates and/or reports adequate pain control throughout the perioperative period The patient received appropriate medication(s), safely administered during the perioperativeperiod Finalized By: Mónica Sommer RN Document Signatures Signed By: Mónica Sommer RN 11/26/23 13:07[facility] Preoperative Recordon [id number] OR Preoperative RecordMain OR Preoperative Record Holding Area Document Type FT Summary Primary Physician: Yohannes Ramos MD Finalized Date/Time: 11/26/23 11:24:42 Pt. Name: RUTH GROSSMAN /Sex: 1995 Female Med Rec #: [id number] Physician: Yohannes Ramos MD Financial #: [id number] Pt. Type: O Room/Bed: / Admit/Disch: 11/26/23 11:01:11 - Institution: Case Times Holding FT Pre-Care Text: Verifies consent for planned procedure, identifies individual values and wishes concerning care, includes family members in perioperative teaching Secures patient's records' belongings, and valuables, maintains patient's dignity and privacy, and maintains patient confidentiality Entry 1 In Holding 11/26/23 11:05:00 Outcomes Met? Yes Last Modified By: Nita Jacques RN 11/26/23 11:23:41 Post-Care Text: The patient participates in decisions affecting his or her perioperative plan of care The patient'sright to privacy is maintained Surgery Checklist FT Entry 1 Patient Birthday, ID Band Procedure History and Physical, Identification: Check, Patient Verification: Surgical Consent, With Participation Patient NPO after Midnight: Yes Results Reviewed n/a Comments: Personal Items None Complaints of Pain: No Comment: Pain Comment: Denies Operative Site n/a Marking: Availability Equipment Verified: Does Patient Smoke No Patient states Yes Comment - Adult Deon- spouse postop adult Supervision supervision available Case Cancelled in No Holding Area see comments below for reason Last Modified By: Nita Jacques RN 11/26/23 11:24:37 Finalized By: Nita Jacques RN Document Signatures Signed By: Nita Jacques RN 11/26/23 11:24[facility] CenterOperative Reporton [id number] ReportOperative Report Patient: RUTH GROSSMAN Age: 28 years Sex: Female : 1995 Associated Diagnoses: None Author: Yohannes Ramos MD Pre-Procedure Procedure Date 11/26/2023 12:17:00 . Procedure Type: Esophagogastroduodenoscopy with biopsy. Procedure provider Performed by Mouchli MD, Mohamad A.. Current history and physical Documented on chart. Informed Consent After discussing the rationale, risks and benefits, and alternatives to this procedure, the patient provided signed consent for the procedure. Pre-procedure diagnosis: anemia. Medications (Selected) Inpatient Medications Ordered Lactated Ringers IV Sindi 1000 mL 1,000 mL: 1,000 mL, IV, 100 mL/hr, Routine, Start date 11/26/23 7:31:00 EDT, 10 hour(s), Total volume (mL): 1,000, 61 kg, 1.65, m2 Sodium Chloride 0.9% IV Sindi 1000 mL 1,000 mL: 1,000 mL, IV, 20 mL/hr, Routine, Start date 11/26/23 7:52:00 EDT, 50 hour(s), Total volume (mL): 1,000, 61 kg, 1.65, m2 Prescriptions Prescribed Zofran ODT 4 mg Tab-Dis: 4 mg = 1 tab(s), Oral, q6hr, PRN Nausea/Vomiting, # 12 tab(s), Refills(s) 0, [id number], 160.1, cm, 01/02/23 9:00:00 EST, Height/Length Dosing, 58.8, kg, 01/02/23 9:00:00 EST, Weight Dosing Zofran ODT 4 mg Tab-Dis: 4 mg = 1 tab(s), Oral, q8hr, PRN Nausea/Vomiting, first line nausea, # 16 tab(s), Refills(s) 0, [id number], 160, cm, 11/07/23 23:38:00 EDT, Height/Length Dosing, 60, kg, 11/07/23 23:38:00 EDT, Weight Dosing omeprazole 20 mg Cap-DR: 20 mg = 1 cap(s), Oral, Daily, # 30 cap(s), Refills(s) 0, Pharmacy: [facility] #[id number], 160, cm, 11/09/23 9:24:00 EDT, Height/Length Dosing, 60, kg, 11/09/23 9:24:00 EDT, Weight Dosing promethazine 12.5 mg oral tablet: 12.5 mg = 1 tab(s), Oral, q8hr, PRN as needed for nausea/vomiting, second line nausea, # 8 tab(s), Refills(s) 0, Pharmacy: [facility]/pharmacy #[id number], 160, cm, 11/07/23 23:38:00 EDT, Height/Length Dosing, 60, kg, 11/07/23 23:38:00 EDT, Weight Dosing Documented Medications Documented Incassia 0.35 mg oral tablet: See Instructions, Refills(s) 0 citalopram 20 mg Tab: Refills(s) 0 Anticoagulant/antiplatelet None. ASA Classification: Class II. . Monitoring: See anesthesia record. . Procedure The procedure was performed in the hospital. See anesthesia record for sedation given during procedure. The patient was positioned starting in the left lateral decubitus position and with safety measures. Endoscope type used was an adult- size, introduced orally, advanced to the 2nd portion of the duodenum. No difficulty was encountered during the procedure. Views were excellent. The patient tolerated the procedure well. Findings 1. Normal esophagus. Z-line at 37 cm. Mild reflux apicitis. Hiatal hernia measuring 3 cm 2. Erythema in the antrum, mild patchy. Otherwise normal stomach. Biopsies of the stomach were taken to rule out H. pylori. 3. Normal duodenum. Images Procedure images: Rec_hd_video___[id number].jpg Rec_hd_video__[id number].jpg Rec_hd_video__[id number].jpg Rec_hd_video__[id number].jpg Rec_hd_video__[id number].jpg Rec_hd_video__[id number].jpg Rec_hd_video__[id number].jpg [id number]_hd_video_[id number].jpg . Post-Procedure Complications: none. Estimated blood loss: minimal. Specimens: sent to pathology. Devices/ implants: none left in place. Impression and Plan mild reflux otherwise Hiatal hernia Mild gastropathy Recommendations: -Resume previous diet -Resume home medications -Try to avoid THC use -Await pathology results, follow in GI clinic in 1-2 after dischargeBarney Children's Medical CenterComment on above:Result Comment: Electronically Signed By: Rachel HUSTON, Yohannes Robins.br\Date and Time Signed: 11/26/2411:19 EDTOther Comment: Missing Attachment - attachment storage system not supported [id number] Can be viewed in source system Missing Attachment - attachment storage system not supported [id number] Can be viewed in source systemMissing Attachment - attachment storage system not supported [id number] Can be viewed in source systemMissing Attachment - attachment storage system not supported [id number] Can be viewed in source systemMissing Attachment - attachment storage system not supported [id number] Can be viewed in source systemMissing Attachment - attachment storage system not supported [id number] Can be viewed in source systemMissing Attachment - attachment storage system not supported [id number] Can be viewed in source systemMissing Attachment - attachment storage system not supported [id number] Can be viewed in source systemC Urineon [id number] identified Cx Nom (U)Microbiology PROCEDURE: Urine Culture [R1] SOURCE: U CleanCatch BODY SITE: COLLECTED DATE/TIME: 11/09/2023 11:26 EDT RECEIVED DATE/TIME: 11/09/2023 14:16 EDT START DATE/TIME: 11/09/2023 14:16 EDT FREE TEXT SOURCE: Alex Correia DO, DO, John FINAL REPORTS Final Report [] Verified Date/Time: 11/11/2023 08:48 EDT 35,000 cfu/ml Streptococcus agalactiae (Group B) Presumptive isolated. Penicillin is the drug of choice for Beta Hemolytic Streptococci Isolates. Routine susceptibility testing on Beta Hemolytic Streptococcus isolates is no longer performed. Susceptibilities will continue to be performed on Isolates from sterile body fluids and serious wound infections. 10,000 cfu/ml Mixed skin contaminants Performing Locations R1: This test was performed at: [facility], [address] [place] [address], [address] , [place], ZmpajqLhjkvaBarney Children's Medical CenterComment on above:Performed By: #### [id number] #### [facility] [address] [place] [id number] Office/Clinic Noteon 11-11-2023 Gastroenterology Office/Clinic NoteGastroenterology Office/Clinic Note Chief Complaint follow up to ER HPI Staff This is a 28 year old female who presents today for a follow up [facility] [place]09[place]23, for complaints of left sided abdominal pain and nausea & vomiting. Denies Blood Thinners. Denies GLP-1 Agonists. Denies any family history of colon cancer/polyps or IBD. Denies Dysphagia, constipation, diarrhea or bloody stools. Denies any previous EGD/Colonoscopy. Abdominal pain: When did you first have this pain: 4th occasion Quality (sharp, dull): Left upper crampy pain with bowel movements, nausea and vomiting. Constant or comes or go: comes and goes. Relation to food: unsure. was smoking dab pen a lot and vape nicotine, unsure if that can have any affect? [facility] [place]23, d/c with omeprazole 40mg, zofran and Bentyl. CT abd/pelv w/ contrast IMPRESSION: NO EVIDENCE OF ACUTE ABDOMINAL OR PELVIC PATHOLOGY. Laboratory Results CBC CMP PT PTT Basophil Absolute: 0.1 E9/L (11/09/23) A/G Ratio: 1.8 (11/09/23) INR: 1.06 (11/08/23) PTT: 33 second(s) (11/08/23) Basophil Auto: 0.6 % (11/09/23) AGAP: 15 mEq/L (11/09/23) PT: 11.9 second(s) (11/08/23) Eos Absolute: 0.1 E9/L (11/09/23) Albumin Lvl: 4.8 gm/dL (11/09/23) Eos Auto: 1.2 % (11/09/23) Alk Phos: 59 Int._Unit/L (11/09/23) Hct: 40.7 % (11/09/23) ALT: 22 Int._Unit/L (11/09/23) HGB: 13.7 gm/dL (11/09/23) AST: 23 Int._Unit/L (11/09/23) Lymph Absolute: 2 E9/L (11/09/23) Bili Total: 1.4 mg/dL High (11/09/23) Lymph Auto: 22.8 % (11/09/23) BUN: 16 mg/dL (11/09/23) MCH: 28.5 pg (11/09/23) BUN/Creat Ratio: 20 (11/09/23) MCHC: 33.7 gm/dL (11/09/23) Calcium Lvl: 9.4 mg/dL (11/09/23) MCV: 84.7 fL (11/09/23) Chloride: 108 mmol/L (11/09/23) [place] Absolute: 0.6 E9/L (11/09/23) CO2: 19 mmol/L Low (11/09/23) [place] Auto: 6.4 % (11/09/23) Creatinine: 0.8 mg/dL (11/09/23) MPV: 8.2 fL (11/09/23) Globulin: 2.7 gm/dL (11/09/23) Neutro Absolute: 6.1 E9/L (11/09/23) Glucose Lvl: 99 mg/dL (11/09/23) Neutro Auto: 69 % (11/09/23) Potassium Lvl: 4 mmol/L (11/09/23) Platelet: 312 E9/L (11/09/23) Sodium Lvl: 138 mmol/L (11/09/23) RBC: 4.8 E12/L (11/09/23) Total Protein: 7.5 gm/dL (11/09/23) RDW: 14.9 % High (11/09/23) WBC: 8.8 E9/L (11/09/23) History of Present Illness I have reviewed HPI staff note, most recent labs and imaging, more than 30 minutes spent reviewing the chart, during encounter, placing orders and counseling the patient. Pt with recurrent N/V comes with pain in the left side constant squeeze relief of the cramping after the vomiting goes for a BM before that was seen in ED and was given PPI and Bentyl Smokes THC for 10 years Review of Systems All systems reviewed, negative except as mentioned above Physical Exam Vitals & Measurements HR: 80(Peripheral) RR: 16 BP: 155/99 HT: 63 in HT: 160 cm WT: 61 kg WT: 134.2 lb BMI: 23.83 General: alert, no acute distress HEENT: atraumatic normocephalic Cardiovascular: regular rate and rhythm, normal peripheral perfusion Respiratory: Lungs CTA, respirations non labored Extremities: no deformity, no trauma Abdomen: Benign, soft, nontender nondistended Assessment/Plan 1. Left sided abdominal pain (R10.9: Unspecified abdominal pain) Ordered: EGD Endoscopy (Hospital Procedure) 2. Nausea and vomiting (R11.2: Nausea with vomiting, unspecified) Ordered: EGD Endoscopy (Hospital Procedure) 3. Tetrahydrocannabinol (THC) dependence (F12.20: Cannabis dependence, uncomplicated) Ordered: EGD Endoscopy (Hospital Procedure) schedule EGD PPI and Bentyl Advised to quit smoking THC Follow-up No qualifying data available Problem List/Past Medical History Ongoing Tetrahydrocannabinol (THC) dependence Historical No qualifying data Procedure/Surgical History None. Medications citalopram 20 mg Tab Incassia 0.35 mg oral tablet, See Instructions omeprazole 20 mg Cap-DR, 20 mg= 1 cap(s), Oral, Daily promethazine 12.5 mg oral tablet, 12.5 mg= 1 tab(s), Oral, q8hr, PRN Zofran ODT 4 mg Tab-Dis, 4 mg= 1 tab(s), Oral, q6hr, PRN Zofran ODT 4 mg Tab-Dis, 4 mg= 1 tab(s), Oral, q8hr, PRN Allergies No Known Allergies Social History Alcohol - Denies Alcohol Use, 04/14/2015 Substance Abuse - Denies Substance Abuse, 04/14/2015 Marijuana, 01/02/2023 Tobacco - Denies Tobacco Use, 04/14/2015 Current vaping or e-cigarette use Smokeless Tobacco Use:., 11/11/2023 Never (less than 100 in lifetime) Tobacco Use:. Never Smokeless Tobacco Use:., 10/13/2019 Never (less than 100 in lifetime) Tobacco Use:. Never Smokeless Tobacco Use:., 08/31/2019 Never (less than 100 in lifetime) Tobacco Use:., 06/28/2018 Family History Alcoholism: Negative: Mother, Father, Sister and Brother. Hypertension: Father. Immunizations Vaccine Date Status Comments influenza virus vaccine, inactivated - Not Given Mickie (more content not included)...[facility] CenterComment on above:Result Comment: Electronically Signed By: Rachel HUSTON, Yohannes Recio\Date and Time Signed: 11/10/2414:07 EDTB hCG Qualon [id number] HCG ( test) QlNegative [facility] CenterComment on above:Performed By: #### [id number] #### [facility] [address], [place] [address]EFNvt 29-11-5404Spisw gap [Moles/Vol]15 mmol/LNormal6-16[facility] SystemComment on above:Performed By: #### [id number] #### [facility] [address], [place] [address]Fbnqayk [Mass/Vol]9.4 mg/dLNormal8.9-11.1FOhioHealth O'Bleness HospitalComment on above:Performed By: #### [id number] #### [facility] [address], [place] [address]Swwxqwfe [Moles/Vol]108 mmol/CSqkuwg589-948FtnxpqBlanchard Valley Health SystemComment on above:Performed By: #### [id number] #### [facility] [address], [place] [address]AK3 [Moles/Vol]19 mmol/JEzv31-78StaxooBlanchard Valley Health System Comment on above:Performed By: #### [id number] #### [facility] [address], [place] [address]Lizzscxcrg [Mass/Vol]0.8 mg/dLNormal0.5-1.3Fisher [facility] Orthopaedic InstituteComment on above:Performed By: #### [id number] #### [facility] [address], [place] [address]Ohsfdjg [Mass/Vol]99 mg/oDTuslba99-899ZwzqvhBlanchard Valley Health SystemComment on above:Performed By: #### [id number] #### [facility] [address], [place] [address]Yjjunzreo [Moles/Vol]4.0 mmol/LNormal3.5-5.3FOhioHealth O'Bleness HospitalComment on above:Performed By: #### [id number] #### [facility] [address], [place] [address]Cpqzmt [Moles/Vol]138 mmol/KHazptk150-777BmzpkqBlanchard Valley Health SystemComment on above:Performed By: #### [id number] #### [facility] [address], [place] [address]Tytl nitrogen [Mass/Vol]16 mg/dLNormal5-21[facility] SystemComment on above:Performed By: #### [id number] #### [facility] [address], [place] [address]Toqk nitrogen/Creatinine [Mass ratio]20 No UrrbhNexiaj85-20 [facility] SystemComment on above:Performed By: #### [id number] #### [facility] [address] [place] [address]SAW w/ Auto Diffon 24-11-4637Tyacahyur/100 WBC (Bld)0.6 %Normal 0.0-2.0[facility] SystemComment on above:Performed By: #### [id number] #### [facility] [address], [place] [address]Qnbwuxuge/Leukocytes Auto (Bld) [Pure # fraction]0.1 E9/LNormal 0.0-0.2FOhioHealth O'Bleness HospitalComment on above:Performed By: #### [id number] #### [facility] [address], [place] [address]Spqljqasjef (Bld) [#/Vol]0.1 E9/LNormal0.0-0.5FOhioHealth O'Bleness HospitalComment on above:Performed By: #### [id number] #### [facility] [address] [place] [address]Gutczrxpabw/100 WBC (Bld)1.2 %Normal0.0-8.0[facility] SystemComment on above:Performed By: #### [id number] #### [facility] [address] [place] [address]Gwlceezasfg distribution width (RBC) [Ratio]14.9 %High10.9-14.2 [facility] SystemComment on above:Performed By: #### [id number] #### [facility] [address] [place] [address]Gwanatluem (Bld) [Volume fraction]40.7 %Rimcxc00.0-46.0[facility] SystemComment on above:Performed By: #### [id number] #### [facility] [address] [place] [address]Mzlqwvofgd (Bld) [Mass/Vol]13.7 g/kSVtvwou25.0-16.0[facility] SystemComment on above:Performed By: #### [id number] #### [facility] [address] [place] [address]Hiypeopntdt (Bld) [#/Vol]2.0 E9/LNormal1.0-4.0[facility] SystemComment on above:Performed By: #### [id number] #### [facility] [address] [place] [address]Itprbkndxmc/100 WBC (Bld)22.8 %Ssrkmi40.0-50.0[facility] SystemComment on above:Performed By: #### [id number] #### [facility] [address] [place] [address]EDX (RBC) [Entitic mass]28.5 goBqvguf99.0-34.0[facility] SystemComment on above:Performed By: #### [id number] #### [facility] [address], [place] [address]ZPIF (RBC) [Mass/Vol]33.7 g/pLWvvlre76.4-36.0[facility] SystemComment on above:Performed By: #### [id number] #### [facility] [address] [place] [address]DFU (RBC) [Entitic vol]84.7 uQDvogny03.0-100.0[facility] SystemComment on above:Performed By: #### [id number] #### [facility] [address] [place] [address]Xqehmtcih (Bld) [#/Vol]0.6 E9/LNormal0.2-1.0[facility] SystemComment on above:Performed By: #### [id number] #### [facility] [address] [place] [address]Ywafybvltmn (Bld) [#/Vol]6.1 E9/LNormal2.0-7.5FOhioHealth O'Bleness HospitalComment on above:Performed By: #### [id number] #### [facility] [address] [place] [address]Xxydzeqgqqf/100 WBC (Bld)69.0 %Oyddzv66.0-75.0[facility] SystemComment on above:Performed By: #### [id number] #### [facility] [address] [place] [address]Peyjduac mean volume (Bld) [Entitic vol]8.2 fLNormal6.4-10.8 [facility] SystemComment on above:Performed By: #### [id number] #### [facility] [address] [place] [address]Ayejdpqdp (Bld) [#/Vol]312.0 E9/EQvsgwf367.0-500.0[facility] SystemComment on above:Performed By: #### [id number] #### [facility] [address] [place] [address]KLM (Bld) [#/Vol]4.8 E12/LNormal4.3-5.9[facility] SystemComment on above:Performed By: #### [id number] #### [facility] [address], [place] [address]THE corrected for nucl RBC Auto (Bld) [#/Vol]8.8 E9/LNormal 4.0-11.0[facility] SystemComment on above:Performed By: #### [id number] #### [facility] [address], [place] [address]JOUDYUCYNDqqasxy By: Ramon Olmstead on 11-09-2023U Amph Scr NEGATIVE 8 (11/09/23 11:26 AM)NormalNEGATIVEFTMC Chem SComment on above:Interpretive Data: Negative Cutoff: <1000 ng/mLU Anamika ScrNEGATIVE 9 (11/09/23 11:26 AM)NormalNEGATIVEFTMC Chem SComment on above:Interpretive Data: Negative Cutoff: <200 ng/mLU Benzodia ScrNEGATIVE 1 (11/09/23 11:26 AM)NormalNEGATIVEFTMC Chem SComment on above:Interpretive Data: Negative Cutoff: <200 ng/mLU Cannab ScrPOSITIVE 6, 7 *ABN* (11/09/23 11:26 AM)Invalid Interpretation CodeNEGATIVEFTMC Chem SComment on above:Result Comment: No confirmation requested by physician Results verified by repeat analysis, Unconfirmed by alternate method. Critical result called to Cherelle Jacques by [email or web address] on 11/09/2023 at 1440 Interpretive Data: Negative Cutoff: <50 ng/mLU Cocaine ScrNEGATIVE 2 (11/09/23 11:26 AM)NormalNEGATIVEFTMC Chem SComment on above:Interpretive Data: Negative Cutoff: <300 ng/mLU FentanylNEGATIVE 10 (11/09/23 11:26 AM)NormalNEGATIVEFTMC Chem SComment on above:Interpretive Data: Negative Cutoff: <5 ng/mL These drug screen results are to be used for medical (i.e., treatment) purposes only. Unconfirmed drug screening results must not be used for non-medical purposes (e.g., employment testing, legal testing).U Opiate ScrNEGATIVE 4 (11/09/23 11:26 AM)NormalNEGATIVEHILLCREST HOSPITAL [facility] Chem SComment on above:Interpretive Data: Negative Cutoff: <300 ng/mLU PCP ScrNEGATIVE 5 (11/09/23 11:26 AM)NormalNEGATIVEHILLCREST HOSPITAL [facility] Chem SComment on above:Interpretive Data: Negative Cutoff: <25 ng/mL These drug screen results are to be used for medical (i.e., treatment) purposes only. Unconfirmed drug screening results must not be used for non-medical purposes (e.g., employment testing, legal testing).CHEMISTRYOrdered By: SYSTEM SYSTEM on 23-21-4493Hjjquqq [Mass/Vol]4.8 g/dLNormal3.3 - 5.0 gm/dLRemisol Chem Albumin/Globulin [Mass ratio]1.8 {ratio}Normal1.1 - 2.2Remisol ChemALP [Catalytic activity/Vol]59 [iU]/pMidnzo47 - 98 Int._Unit/LRemisol ChemALT No additional P-5'-P [Catalytic activity/Vol]22 [iU]/dNormal6 - 46 Int._Unit/L Remisol ChemAnion gap [Moles/Vol]15 mmol/LNormal6 - 16 mEq/LRemisol ChemAST [Catalytic activity/Vol]23 [iU]/dNormal5 - 43 Int._Unit/LRemisol ChemBilirubin [Mass/Vol]1.4 mg/dLHigh0.0 - 1.1 mg/dLRemisol ChemBilirubin.direct [Mass/Vol]0.2 mg/dLNormal0.0 - 0.4 mg/dLRemisol ChemBilirubin.indirect [Mass or moles/Vol]1.2 mg/dLHigh0.1 - 0.9 mg/dLRemisol ChemCalcium [Mass/Vol]9.4 mg/dLNormal8.9 - 11.1 mg/dLRemisol ChemChloride [Moles/Vol]108 mmol/NMnzixz853 - 111 mmol/LRemisol ChemCO2 [Moles/Vol]19 mmol/LLow21 - 31 mmol/LRemisol ChemCreatinine [Mass/Vol] 0.8 mg/dLNormal0.5 - 1.3 mg/dLRemisol PrlhgGBQ764 mL/min/1.73 j8Jzssnh >=59mL/min/1.73 k4Jyymmul ChemGlobulin (S) [Mass/Vol]2.7 g/dLNormal1.4 - 4.0 gm/dLRemisol ChemGlucose [Mass/Vol]99 mg/hZYezwkx83 - 199 mg/dLRemisol Chem Lipase [Catalytic activity/Vol]32 U/OKseqtb08 - 58 unit/LRemisol ChemPotassium [Moles/Vol]4.0 mmol/LNormal3.5 - 5.3 mmol/LRemisol ChemProtein [Mass/Vol]7.5 g/dLNormal6.0 - 7.8 gm/dLRemisol ChemSodium [Moles/Vol]138 mmol/YPtiigy514 - 145 mmol/LRemisol ChemUrea nitrogen [Mass/Vol]16 mg/dLNormal5 - 21 mg/dLRemisol ChemUrea nitrogen/Creatinine [Mass ratio]20 mg/bnKijoor10 - 20Remisol ChemCT Abdomen/Pelvis w/ Contraston [id number] Abdomen/Pelvis w/ ContrastExam Date/Time: 11/09/2023 10:49 EDT Reason for Exam: ABDOMINAL PAIN, ACUTE, NONLOCALIZED;Other (please specify) Report IMPRESSION: NO EVIDENCE OF ACUTE ABDOMINAL OR PELVIC PATHOLOGY. CLINICAL HISTORY: ABDOMINAL PAIN, ACUTE, NONLOCALIZED. COMPARISON: 06/21/2022. COMMENT: Images were obtained following the administration of Intravenous contrast. The liver, spleen, pancreas, gallbladder, and adrenal glands appear normal. There is a 2 mm nonobstructing calculus in the left kidney inferiorly. The kidneys are otherwise normal in appearance. No ureteral calculus is evident. The renal collecting systems are not dilated. There is no retroperitoneal lymphadenopathy. The abdominal aorta is normal. No aneurysm is noted. Evaluation of bowel is limited. The bowel loops are not dilated, and there is no evidence of bowel obstruction. The appendix is normal. Fecal material in the colon limits evaluation. There is no evidence of diverticulitis. No abdominal inflammatory complex nor free air nor free fluid is noted. The patient is 8 weeks and the uterus is unremarkable . There is no pelvic mass nor pelvic lymphadenopathy. The urinary bladder is unremarkable. The visualized bony structures are unremarkable. All CT scans at this facility use dose modulation, iterative reconstruction, and/or weight based dosing when appropriate to reduce radiation dose to as low as reasonably achievable. Unless otherwise stated, incidental findings identified in this report do not require routine follow-up imaging. Ordering Provider: Alex Correia FINAL REPORT Dictated: 11/09/2023 11:06 am Juan Pablo Gonzales M.D. Signed (Electronic Signature): 11/09/2023 11:06 am Signed by: Juan Pablo Gonzales M.D. Transcribed by: JUAN FRANCISCO Technologist: ANA Technical Comments GFR (mL/min/1/73m2) >60 Contrast: Isovue 300 Contrast amount in ml's: 100 Rectal Contrast Given? No Technical Comments Oral contrast amount in ml's: 0NormalFisher [facility] Clinical Summaryon [id number] Clinical SummaryED Clinical Summary [place] [id number] ED Clinical Summary Person Information Name: RUTH GROSSMAN/[facility] Age: 28 Years : 1995 Sex: Female Language: Australian PCP: NONE, XXXX Marital Status: Single Phone: [phone] Visit Id: Visit Reason: Chills; Abdominal pain; Vomiting; Abdomianl cramping Speciality: Acuity: 3 Enc Type: Emergency Med Service: Emergency Arrival: 11/09/2023 09:10:26 Discharge: 11/09/2023 12:58:39 LOS: 000 03:48 Checkin: 11/09/2023 09:10:26 Checkout: 11/09/2023 12:58:39 Dispo Type: Home (Routine DC) EVENTS: Event Name Event Status Request Date/Time Start Date/Time Complete Date/Time Arrive Complete 11/09/2023 09:10:26 11/09/2023 09:10:26 11/09/2023 09:10:26 Document Home Meds Request 11/09/2023 09:10:26 Triage Complete 11/09/2023 09:10:26 11/09/2023 09:24:44 11/09/2023 09:24:44 Bed Assign Complete 11/09/2023 09:14:17 11/09/2023 09:14:17 11/09/2023 09:14:17 Dr Exam Complete 11/09/2023 09:14:17 11/09/2023 09:20:59 11/09/2023 09:20:59 RN Exam Complete 11/09/2023 09:14:17 11/09/2023 10:12:54 11/09/2023 10:12:54 Registration Complete 11/09/2023 09:20:59 11/09/2023 10:04:23 11/09/2023 10:04:23 CT Complete 11/09/2023 09:28:17 11/09/2023 10:17:14 11/09/2023 10:49:23 Meds Admin Complete 11/09/2023 09:28:17 11/09/2023 09:36:29 Pending Labs Complete 11/09/2023 09:28:17 11/09/2023 12:28:26 Lab Complete 11/09/2023 09:28:17 11/09/2023 10:55:28 Pending Labs Complete 11/09/2023 09:44:04 11/09/2023 09:44:04 11/09/2023 10:24:22 Lab Complete 11/09/2023 09:44:04 11/09/2023 09:44:04 11/09/2023 10:24:22 Pending Labs Complete 11/09/2023 09:46:07 11/09/2023 09:46:07 11/09/2023 09:46:07 Reg Complete Request 11/09/2023 10:04:23 Reg Bed Request Complete 11/09/2023 10:04:23 11/09/2023 10:04:23 11/09/2023 10:04:23 Meds Admin Request 11/09/2023 10:28:38 Meds Admin Complete 11/09/2023 11:21:43 11/09/2023 11:28:10 Pending Labs Collected 11/09/2023 12:28:26 11/09/2023 12:28:26 Lab Collected 11/09/2023 12:28:26 11/09/2023 12:28:26 Discharge Complete 11/09/2023 12:43:46 11/09/2023 12:58:45 11/09/2023 12:58:45 Pending Labs Request 11/09/2023 12:44:55 Lab Request 11/09/2023 12:44:55 Urine Collect Request 11/09/2023 12:44:55 Transfer Complete 11/09/2023 12:58:45 11/09/2023 12:58:45 11/09/2023 12:58:45 ADDRESS: [address] [place] [phone] PHYS DOC NOTES: MEDICAL INFORMATION: Prescriptions Given: New Medications [facility]/pharmacy #[id number], [address], [place] [id number], [phone] omeprazole (omeprazole 20 mg Cap-DR) 1 Capsules By Mouth every day. Refills: 0. Medications to Continue Taking That Have Changed [facility]/pharmacy #[id number], [address], [place] [phone], [phone] START: ondansetron (ondansetron 4 mg Dis Tab) 1 Tablets By Mouth every 6 hours for 3 Days. Refills:0. Other Medications START: ondansetron (Zofran ODT 4 mg Tab-Dis) 1 Tablets By Mouth every 6 hours as needed Nausea/Vomiting. Refills: 0. START: ondansetron (Zofran ODT 4 mg Tab-Dis) 1 Tablets By Mouth every 8 hours as needed Nausea/Vomiting. first line nausea. Refills: 0. Medications to Continue with No Changes Other Medications citalopram (citalopram 20 mg Tab) dicyclomine (Bentyl 10 mg Cap) 2 Capsules By Mouth 4 times a day. Refills: 0. promethazine (promethazine 12.5 mg oral tablet) 1 Tablets By Mouth every 8 hours as needed as needed for nausea/vomiting. second line nausea. Refills: 0. PATIENT EDUCATION INFORMATION: Instructions: Follow up: With: Address: When: Marito Dial [facility], [address], [place] [address] [phone] Business (1) In 3 days 11/12/2023 With: Address: When: XXXX NONE , [place] In 3 days DIAGNOSIS: Gastritis; VomitingNormalFisher Brian Medical CenterED Note-Physicianon [id number] Note-PhysicianED Note-Physician Basic Information Time Seen: Alex Correia DO 11/09/2023 09:21 Chief Complaint pt reports being here on thursday with vomiting cramping and hypokalemia. got better and then returned today with worsening pain. History of Present Illness [age] female presents emergency department with abdominal pain. Patient states that she has had this intermittently since Thursday. She describes a left upper quadrant left-sided abdominal pain that she has never had before. She was in the emergency department with some nausea vomiting diagnosed withhypokalemia treated with IV fluids and was discharged home. That point they did an x-ray but no imag ing of the belly. Patient states despite this she has been having this pain on this left upper and left side of the abdomen. She denies any chance of stating that she takes control and just had a baby 2-1/2 months ago. She reports no urinary symptoms she has had nausea vomiting denies any diarrhea or constipation. No other aggravating or relieving factors no other associated symptoms no other prior treatments or complaints. Family: Reviewed and noncontributory Social: lives at home Review of systems negative unless otherwise specified in the HPI. Physical Exam Vitals & Measurements T: 36.9 ?C(Oral) HR: 65(Peripheral) RR: 24 BP: 138/109 SpO2: 98% HT: 160 cm WT: 60 kg BMI: 23.44 General: Patient is holding a bag towards her mouth and is obviously nauseous and in some discomfort and anxious but is nontoxic in appearance Skin: Warm, dry, no pallor noted. Head: Normocephalic, atraumatic Neck: No JVD Eye: PERRLA, EOMI ENT: Moist mucus membranes Cardiovascular: Regular rate normal peripheral perfusion Respiratory: No respiratory distress no accessory muscle use no obvious audible wheezing Chest Wall: no deformity Musculoskeletal: normal ROM, no deformity, no swelling GI: Soft no obvious distention. No rebound or rigidity. No guarding. Generalized abdominal tenderness no focal tenderness to palpation Neurological: A&O moves all extremities equal strength and symmetry Psychiatric: Cooperative and appropriate patient is very anxious Medical Decision Making Workup in the ER has been reviewed and noted. Workup here is essentially benign. CT scan was added this is negative mono testing is negative. Patient is treated with multiple doses of medications including Ativan Zofran Protonix and Bentyl. She is feeling better at this time she is educated on pumping and then dumping her breastmilk as she is currently breast-feeding. She has not yet seen GI she i s very frustrated that she has been here 4 times for this and does not have a definitive diagnosis.Therefore she is discharged on omeprazole and ondansetron follow-up with primary care physician deepthi given referral to GI as the next step in her workup will likely be EGD given the multiple workups without definitive diagnosis. Assessment/Plan Gastritis (K29.70: Gastritis, unspecified, without bleeding) Vomiting (R11.10: Vomiting, unspecified) Orders: dicyclomine, 20 mg = 2 mL, Injection, IntraMuscular, Once, Stop date 11/09/23 11:21:00 EDT, STAT, Start date 11/09/23 11:21:00 EDT, 11/09/23 11:21:00 EDT lorazepam, 1 mg = 0.5 mL, Injection, IV Push, Once, Stop date 11/09/23 9:27:00 EDT, STAT, Start date 11/09/23 9:27:00 EDT, 11/09/23 9:27:00 EDT omeprazole, 20 mg = 1 cap(s), Oral, Daily, # 30 cap(s), Refills(s) 0, Pharmacy: [facility]/pharmacy #[id number],160, cm, 11/09/23 9:24:00 EDT, Height/Length Dosing, 60, kg, 11/09/23 9:24:00 EDT, Weight Dosing ondansetron, 4 mg = 2 mL, Injection, IV Push, Once, Stop date 11/09/23 9:27:00 EDT, STAT, Start date 11/09/23 9:27:00 EDT, 11/09/23 9:27:00 EDT ondansetron, 4 mg = 1 tab(s), Oral, q6hr, X 3 day(s), # 10 tab(s), Refills(s) 0, Pharmacy: [facility]/pharmacy #[id number], 160, cm, 11/09/23 9:24:00 EDT, Height/Length Dosing, 60, kg, 11/09/23 9:24:00 EDT, Weight Dosing ondansetron, 4 mg = 2 mL, Injection, IV Push, Once, Stop date 11/09/23 10:28:00 EDT, STAT, Start date 11/09/23 10:28:00 EDT, 11/09/23 10:28:00 EDT pantoprazole, 40 mg = 10 mL, Injection, IV Push, Once, Stop date 11/09/23 9:27:00 EDT, STAT, Start date 11/09/23 9:27:00 EDT, 11/09/23 9:27:00 EDT promethazine 25 mg + Sodium Chloride 0.9% intravenous solution 50 mL, Injection, IV Piggyback, Once, Stop date 11/09/23 10:28:00 EDT, STAT, Start date 11/09/23 10:28:00 EDT, 153 mL/hr, Infuse over 20minute(s) Sodium Chloride 0.9% intravenous solution, 1,000 mL, Soln-IV, IV, Once, Stop date 11/09/23 9:27:00 EDT, STAT, Start date 11/09/23 9:27:00 EDT, Infuse over 61, minute(s) Sodium Chloride 0.9% intravenous solution 1,000 mL, 1,000 mL, IV, 1,000 mL/hr, STAT, Start date 11/09/23 10:28:00 EDT, 1 hour(s), Total volume (mL): 1,000, 60 kg, 1.63, m2 Basic Metabolic Panel Beta hCG Qual CBC w/ Auto Diff CT Abdomen/Pelvis w/ Contrast Drug Screen Urine eGFR Extra Blue Tube Hepatic Function Panel Lipase Level Mononucleosis Screen UA with Cult Rflx U (more content not included)...[facility]'s Medical CenterComment on above:Result Comment: Electronically Signed By: Alex Correia DO\.br\Date and Time Signed: 11/09/23 12:46EDTED Patient Education Noteon [id number] Patient Education NoteED Patient Education NoteNormKindred Healthcare Patient Summaryon [id number] Patient SummaryED Patient Summary [address] [address] Patient Discharge Instructions Person Information Name: RUTH GROSSMAN Age: 28 Years Arrival Date: 11/09/2023 09:10:26 Discharge Diagnosis: Gastritis; Vomiting Primary Care Physician: NONE, XXXX Provider Information Primary Provider: Alex Correia DO Advanced Cream Cheese Maker:None The exam and treatment you received in the Emergency Department were for an urgent problem and are not intended as complete care. It is important that you follow up with a doctor, nurse practitioner,or physician?s study assistant for ongoing care. If your symptoms become worse or you do not improve as expected and you are unable to reach your usual health care provider, you should return to the Emergency Department. We are available 24 hours a day. RUTH GROSSMAN has been given the following list of patient education materials, prescriptions and follow-up instructions: Follow-up Instructions: With: Address: When: Marito Hernandez [address] [place] [address], [address], [address] [phone] Business (1) In 3 days 11/12/2023 With: Address: When: XXXX [facility] , [place] In 3 days In the event that this physician does not participate in your insurance network, please consult with your insurance company to find a nearby participating provider. Patient Education Materials: A MESSAGE TO ALL PATIENTS REGARDING OPIOIDS PRESCRIPTION OPIOIDS: WHAT YOU NEED TO KNOW Prescription opioids can be used to help relieve hodxsgxu-kh-oxgemg pain and are often prescribed following a [...] and have fewer risks and side effects. Optionsmay include: ? Pain relievers such as acetaminophen, [...] unused prescription opioids: Find your community drug take- back program or yourAccordrmacy mail-back program, or flush them down the toilet, following guidance from the Food and Drug Administration (www.fda.gov/Drugs/ResourcesForYou). ? Visit www.cdc.gov/drugoverdose to learn about the risks of opioids abuse and overdose. ? If you believe you may be struggling with addiction, tell your health care specialist and ask for guidance or call SAMHSA?S National Help (more content not included)...NormalBlanchard Valley Health SystemExtra Blueon [id number] Collected PlasmaYesInvalid Interpretation CodeBlanchard Valley Health SystemComment on above:Performed By: #### [id number] #### Zackery [facility] [address] [place], [place] [address]JHMARUKAFGQsfmepx By: SYSTEM SYSTEM on 10-15-3101Gwcuceuwq/100 WBC (Bld)0.6 %Normal0.0 - 2.0 %Remisol HemeBasophils/Leukocytes Auto (Bld) [Pure # fraction]0.1 E9/LNormal0.0 - 0.2 E9/LRemisol HemeEosinophils (Bld) [#/Vol]0.1 E9/LNormal0.0 - 0.5 E9/LRemisol HemeEosinophils/100 WBC (Bld)1.2 %Normal0.0 - 8.0 %Remisol HemeErythrocyte distribution width (RBC) [Ratio]14.9 %High10.9 - 14.2 %Remisol HemeHematocrit (Bld) [Volume fraction]40.7 %Qxcdfy72.0 - 46.0 % Remisol HemeHemoglobin (Bld) [Mass/Vol]13.7 g/sRPgevff30.0 - 16.0 gm/dLRemisol HemeLymphocytes (Bld) [#/Vol]2.0 E9/LNormal1.0 - 4.0 E9/LRemisol Heme Lymphocytes/100 WBC (Bld)22.8 %Ateyjf93.0 - 50.0 %Remisol HemeMCH (RBC) [Entitic mass]28.5 fvLlcrfe08.0 - 34.0 pgRemisol HemeMCHC (RBC) [Mass/Vol]33.7 g/dL Wedksx35.4 - 36.0 gm/dLRemisol HemeMCV (RBC) [Entitic vol]84.7 wQWujwsw17.0 - 100.0 fLRemisol HemeMonocytes (Bld) [#/Vol]0.6 E9/LNormal0.2 - 1.0 E9/LRemisol HemeMonocytes/100 WBC (Bld)6.4 %Normal4.0 - 14.0 %Remisol HemeNeutrophils (Bld) [#/Vol]6.1 E9/LNormal2.0 - 7.5 E9/LRemisol HemeNeutrophils/100 WBC (Bld)69.0 % Iscpha42.0 - 75.0 %Remisol HemePlatelet mean volume (Bld) [Entitic vol]8.2 fL Normal6.4 - 10.8 fLRemisol HemePlatelets (Bld) [#/Vol]312.0 E9/UXglkcv530.0 - 500.0 E9/LRemisol HemeRBC (Bld) [#/Vol]4.8 E12/LNormal4.3 - 5.9 E12/LRemisol HemeWBC corrected for nucl RBC Auto (Bld) [#/Vol]8.8 E9/LNormal4.0 - 11.0 E9/L Remisol HemeHep Func Panelon 82-04-9933Osjdats [Mass/Vol]4.8 g/dLNormal3.3-5.0 [facility] SystemComment on above:Performed By: #### [id number] #### [facility] [address], [place] [address]Bxgtisd/Globulin (S) [Mass conc ratio]1.0Mjzuli6.1-2.2FOhioHealth O'Bleness HospitalComment on above:Performed By: #### [id number] #### [facility] [address], [place] [address]CTI [Catalytic activity/Vol]59 Int._Unit/PQddybj63-46WxwfosBlanchard Valley Health SystemComment on above:Performed By: #### [id number] #### [facility] [address], [place] [address]HDV No additional P-5'-P [Catalytic activity/Vol]22 Int._Unit/L Normal6-46[facility] SystemComment on above:Performed By: #### [id number] #### [facility] [address], [place] [address]JVP [Catalytic activity/Vol]23 Int._Unit/LNormal5-43[facility] SystemComment on above:Performed By: #### [id number] #### [facility] [address] [place] [address]Wgrlzsryk [Mass/Vol]1.4 mg/dLHigh0.0-1.1FOhioHealth O'Bleness HospitalComment on above:Performed By: #### [id number] #### [facility] [address] [place] [address]Ithiigrdl.direct [Mass/Vol]0.2 mg/dLNormal0.0-0.4FOhioHealth O'Bleness HospitalComment on above:Performed By: #### [id number] #### [facility] [address] [place] [address]Vqpthecrw.indirect [Mass or moles/Vol]1.2 mg/dLHigh0.1-0.9 [facility] SystemComment on above:Performed By: #### [id number] #### [facility] [address] [place] [address]Fpxgzksd (S) [Mass/Vol]2.7 g/dLNormal1.4-4.0[facility] SystemComment on above:Performed By: #### [id number] #### [facility] [address] [place] [address]Rrovkez [Mass/Vol]7.5 g/dLNormal6.0-7.8[facility] SystemComment on above:Performed By: #### [id number] #### [facility] [address] [place] [address]Puqviu Levelon 40-25-4721Dlqzve [Catalytic activity/Vol]32 U/L Iqxgrq72-17QxbxymBlanchard Valley Health SystemComment on above:Performed By: #### [id number] #### [facility] [address] [place] [address]Vdyk Screenon 30-76-2220Rhmwgagjmjn Ab LA Ql (S)NegativeNormal NegativeBlanchard Valley Health SystemComment on above:Performed By: #### [id number] #### Viz[facility] [address], [place] [address]ENAWTJYDQaaxkhk By: Ermelinda Saleh on 13-11-8922Cloy HCG ( test) QlNegative (11/09/23 9:31 AM)NormalHILLCREST [facility] Man SeroSEROLOGYOrdered By: Shahana Barnard on 32-90-5405Msthgacskvs Ab LA Ql (S)Negative (11/09/23 9:31 AM)NormalNegativeHILLCREST HOSPITAL [facility] Man SeroU Drug Screenon 11-09-2023U Amph Scr NegativeNormalNEGATIVEBlanchard Valley Health SystemComment on above:Result Comment: Negative Cutoff: <1000 ng/mLPerformed By: #### [id number] #### [facility] [address] [facility], [place] [address]N Anamika ScrNegativeNormalNEGPremier Health Miami [facility] Hospital Comment on above:Result Comment: Negative Cutoff: <200 ng/mLPerformed By: #### [id number] #### [facility] [address] [facility], [place] [address]T Benzodia ScrNegativeNormalNEGPremier Health Miami [facility] Hospital Comment on above:Result Comment: Negative Cutoff: <200 ng/mLPerformed By: #### [id number] #### [facility] [address] [facility], [place] [address]J Cannab ScrPositiveAbnormalNEGPremier Health [facility] Hospital Comment on above:Result Comment: No confirmation requested by physician Results verified by repeat analysis, Unconfirmed by alternate method. Critical result called to Cherelle Jacques by [email or web address] on 11/09/2023 at 1440 Negative Cutoff: <50 ng/mLPerformed By: #### [id number] #### [facility] [address] [facility], [place] [address]R Cocaine ScrNegativeNormalNEGPremier Health [facility] Comment on above:Result Comment: Negative Cutoff: <300 ng/mLPerformed By: #### [id number] #### [facility] [address] [facility], [place] [address]Q FentanylNegativeNormalNEGATIVEBlanchard Valley Health System Comment on above:Result Comment: Negative Cutoff: <5 ng/mL These drug screen results are to be used for medical (i.e., treatment) purposes only. Unconfirmed drug screening results must not be used for non-medical purposes (e.g., employment testing, legal testing).Performed By: #### [id number] #### [facility] [address], [place] [address]X Opiate ScrNegativeNormalNEGATIVEBlanchard Valley Health System Comment on above:Result Comment: Negative Cutoff: <300 ng/mLPerformed By: #### [id number] #### [facility] [address], [place] [address]U PCP ScrNegativeNormalNEGATIVEBlanchard Valley Health System Comment on above:Result Comment: Negative Cutoff: <25 ng/mL These drug screen results are to be used for medical (i.e., treatment) purposes only. Unconfirmed drug screening results must not be used for non-medical purposes (e.g., employment testing, legal testing).Performed By: #### [id number] #### [facility] [address], [place] [address]XY with Cult Rflxon 25-63-5110Dsiugokmm Ql (U)NegativeNormal NegativeBlanchard Valley Health SystemComment on above:Performed By: #### [id number] #### [facility] [address], [place] [address]Fuqxvci (U)ClearNormalClearBlanchard Valley Health SystemComment on above:Performed By: #### [id number] #### [facility] [address], [place] [address]Eztwo (U)Light-YellowNormalYellowBlanchard Valley Health System Comment on above:Result Comment: Microscopic readings are only performed on those samples that meet specific criteria set forth by [facility].Performed By: #### [id number] #### [facility] [address], [place] [address]Tbookpkslx cells.squamous Auto (Urine sed) [#/Area]5-8Invalid Interpretation CodeBlanchard Valley Health SystemComment on above:Performed By: #### [id number] #### [facility] [address], [place] [address]Etfpuwr Ql (U)[facility]iers HospitalNormalNegSelect Medical [facility] Comment on above:Performed By: #### [id number] #### [facility] [address], [place] [address]Zijfrteent Auto test strip (U) [Mass/Vol]NegativeNormalNegative [facility] SystemComment on above:Performed By: #### [id number] #### [facility] [address], [place] [address]Rspziyk Auto test strip Ql (U)TraceAbnormalNegativeBlanchard Valley Health SystemComment on above:Performed By: #### [id number] #### [facility] [address], [place] [address]Mrskrzfyl esterase Auto test strip Ql (U)75 Telma/uLAbnormal [facility] TriPoint Medical CenterComment on above:Performed By: #### [id number] #### [facility] [address], [place] [address]Kedlb Auto Ql (U)TraceNormalNegSelect Medical [facility] Rehabilitation Hospital Comment on above:Performed By: #### [id number] #### [facility] [address], [place] [address]Qgqpqrm Auto test strip Ql (U)NegativeNormalNegativeBlanchard Valley Health SystemComment on above:Performed By: #### [id number] #### [facility] [address], [place] [address]jB (U)6.5 [pH]Invalid Interpretation Code5.0-9.0[facility] SystemComment on above:Performed By: #### [id number] #### [facility] [address], [place] [address]Qpxieys Ql (U)NegativeNormalNegSelect Medical [facility] Comment on above:Performed By: #### [id number] #### Zackery [facility] [address], [place] [address]Oqbkkjbk gravity (U) [Rel density]1.045Invalid Interpretation Code1.005-1.030[facility] SystemComment on above:Performed By: #### [id number] #### Zackery [facility] [address], [place] [address]Ozobabkyaday (U) [Mass/Vol]NegativeNormalNegativeBlanchard Valley Health SystemComment on above:Performed By: #### [id number] #### [facility] [address], [place] [address]ONB Auto (Urine sed) [#/Area]1-3Mfxbqv8-7Vfnsoj [facility] InstituteComment on above:Performed By: #### [id number] #### [facility] [address] [place] [address]Izjo of Urine collection methodClean CatchNoalBlanchard Valley Health SystemComment on above:Performed By: #### [id number] #### [facility] [address], [place] [address]LROYHHEWZQBimonxj By: SYSTEM SYSTEM on 41-44-8346Ldkbzxpnr Ql (U)NegativeNormalNegativemg/dLHILLCREST HOSPITAL [facility] UA Auto SSClarity (U)Clear (11/09/23 11:26 AM)NormalClearFAMG [facility] UA Auto SSColor (U)Light-Yellow 3 (11/09/23 11:26 AM)NormalYellowHILLCREST HOSPITAL PR[facility] UA Auto SSComment on above:Interpretive Data: Microscopic readings are only performed on those samples that meet specific criteria set forth by [facility].Epithelial cells.squamous Auto (Urine sed) [#/Area]5-8 graded/HPFInvalid Interpretation CodeHILLCREST HOSPITAL [facility] UA Auto SSGlucose Ql (U)NegativeNormalNegativemg/dLHILLCREST HOSPITAL [facility] UA Auto SS Hemoglobin Auto test strip (U) [Mass/Vol]NegativeNormalNegativemg/dLHILLCREST HOSPITAL [facility] UA Auto SSKetones Auto test strip Ql (U)Trace mg/dLInvalid Interpretation Code Negativemg/dLHILLCREST HOSPITAL [facility] UA Auto SSLeukocyte esterase Auto test strip Ql (U)75 Telma/uL Telma/uLInvalid Interpretation CodeNegativeLeu/uLHILLCREST HOSPITAL PRYOR – [facility] UA Auto SSMucus Auto Ql (U) Trace graded/LPFNormalNegativegraded/LPFFTMC UA Auto SSNitrite Auto test strip Ql (U)NegativeNormalNegativemg/dLHILLCREST HOSPITAL [facility] UA Auto SSpH (U)6.5 *NA* (11/09/23 11:26 AM)Invalid Interpretation Code5.0 - 9.0[facility] UA Auto SSProtein Ql (U)NegativeNormalNegativemg/dLHILLCREST HOSPITAL [facility] UA Auto SSSpecific gravity (U) [Rel density] 1.045 *NA* (11/09/23 11:26 AM)Invalid Interpretation Code1.005 - 1.030[facility] UA Auto SS Urobilinogen (U) [Mass/Vol]NegativeNormalNegativemg/dLHILLCREST HOSPITAL [facility] UA Auto SSWBC Auto (Urine sed) [#/Area]0-5 graded/HPFNormal0-5graded/HPFHILLCREST HOSPITAL [facility] UA Auto SSURINALYSIS Ordered By: Alex Correia on 41-80-6863OQ Spec DescClean Catch (11/09/23 11:26 AM)NormalHILLCREST HOSPITAL [facility] UA Auto SS egFRon 70-12-5999oFDE461 mL/min/1.73 y8Znxctx>=59[facility] SystemComment on above:Order Comment: Order added by Discern Expert.Performed By: #### [id number] #### Zackery [facility] [address], [place] [address]QERfi 48-77-2536Zrnmd gap [Moles/Vol]22 mmol/LHigh6-16[facility] SystemComment on above:Performed By: #### [id number] #### Zackery [facility] [address], [place] [address]Cotqdup [Mass/Vol]9.2 mg/dLNormal8.9-11.1Fisher [facility] InstituteComment on above:Performed By: #### [id number] #### [facility] [address], [place] [address]Afxrhzyq [Moles/Vol]104 mmol/ASrucgp106-760SimxoeBlanchard Valley Health SystemComment on above:Performed By: #### [id number] #### [facility] [address], [place] [address]HZ2 [Moles/Vol]15 mmol/NXsq07-74AwwmziBlanchard Valley Health System Comment on above:Performed By: #### [id number] #### [facility] [address], [place] [address]Hmcqudfplw [Mass/Vol]0.7 mg/dLNormal0.5-1.3FOhioHealth O'Bleness HospitalComment on above:Performed By: #### [id number] #### [facility] [address], [place] [address]Xhialcx [Mass/Vol]127 mg/gBLlgnpw72-619OwukjpBlanchard Valley Health SystemComment on above:Performed By: #### [id number] #### [facility] [address], [place] [address]Vomdklwyl [Moles/Vol]2.6 mmol/LAbnormal3.5-5.3FOhioHealth O'Bleness HospitalComment on above:Result Comment: Critical Result Verified by Repeat Analysis Critical Result S_K:2.6 Called to and read back by: PHILIP WALL/FELISHA at: 11/08/2023 00:43:31 by:PIERRE Bazziformed By: #### [id number] #### [facility] [address], [place] [address]Jkcega [Moles/Vol]138 mmol/RGgttck692-126OykbwgBlanchard Valley Health SystemComment on above:Performed By: #### [id number] #### [facility] [address], [place] [address]Fsvi nitrogen [Mass/Vol]14 mg/dLNormal5-21[facility] SystemComment on above:Performed By: #### [id number] #### [facility] [address], [place] [address]Smlv nitrogen/Creatinine [Mass ratio]20 No KuctcAgspyu76-64 [facility] SystemComment on above:Performed By: #### [id number] #### [facility] [address] [place] [address]EOZ w/ Auto Diffon 75-17-4135Dpzabilvt/100 WBC (Bld)0.7 %Normal 0.0-2.0[facility] SystemComment on above:Performed By: #### [id number] #### [facility] [address], [place] [address]Dwiziikrk/Leukocytes Auto (Bld) [Pure # fraction]0.1 E9/LNormal 0.0-0.2FOhioHealth O'Bleness HospitalComment on above:Performed By: #### [id number] #### [facility] [address] [place] [address]Gdiloelgaap (Bld) [#/Vol]0.0 E9/LNormal0.0-0.5FOhioHealth O'Bleness HospitalComment on above:Performed By: #### [id number] #### [facility] [address] [place] [address]Kefjpgwcasg/100 WBC (Bld)0.4 %Normal0.0-8.0[facility] SystemComment on above:Performed By: #### [id number] #### [facility] [address] [place] [address]Kxzfecawvuo distribution width (RBC) [Ratio]14.4 %High10.9-14.2 [facility] SystemComment on above:Performed By: #### [id number] #### [facility] [address], [place] [address]Klsplxdjlj (Bld) [Volume fraction]38.8 %Lllqii09.0-46.0[facility] SystemComment on above:Performed By: #### [id number] #### [facility] [address], [place] [address]Orgdfaouql (Bld) [Mass/Vol]13.1 g/kMYfvdmc08.0-16.0[facility] SystemComment on above:Performed By: #### [id number] #### [employer] [facility] [address] [place] [address]Jqnpgwfzyar (Bld) [#/Vol]1.1 E9/LNormal1.0-4.0[facility] SystemComment on above:Performed By: #### [id number] #### [facility] [address] [place] [address]Nhazllhojzn/100 WBC (Bld)9.7 %Low14.0-50.0[facility] SystemComment on above:Performed By: #### [id number] #### [facility] [address] [place] [address]IWO (RBC) [Entitic mass]28.5 lrIuommt10.0-34.0[facility] SystemComment on above:Performed By: #### [id number] #### [facility] [address] [place] [address]QEWL (RBC) [Mass/Vol]33.9 g/uJZcdmsr41.4-36.0[facility] SystemComment on above:Performed By: #### [id number] #### [facility] [address] [place] [address]WAC (RBC) [Entitic vol]84.2 xABugkkk78.0-100.0[facility] SystemComment on above:Performed By: #### [id number] #### [facility] [address] [place] [address]Wuxxkzqom (Bld) [#/Vol]0.3 E9/LNormal0.2-1.0[facility] SystemComment on above:Performed By: #### [id number] #### [facility] [address] [place] [address]Fvehoiwdivx (Bld) [#/Vol]9.7 E9/LHigh2.0-7.5FOhioHealth O'Bleness HospitalComment on above:Performed By: #### [id number] #### [facility] [address] [place] [address]Wggfxzhsicf/100 WBC (Bld)86.1 %High36.0-75.0[facility] SystemComment on above:Performed By: #### [id number] #### [facility] [address] [place] [address]Nperbtdr mean volume (Bld) [Entitic vol]8.0 fLNormal6.4-10.8 [facility] SystemComment on above:Performed By: #### [id number] #### [facility] [address] [place] [address]Prsxckkkg (Bld) [#/Vol]287.0 E9/LFqcsdv730.0-500.0[facility] SystemComment on above:Performed By: #### [id number] #### [facility] [address] [place] [address]OHD (Bld) [#/Vol]4.6 E12/LNormal4.3-5.9[facility] SystemComment on above:Performed By: #### [id number] #### [facility] [address] [place] [address]AYA corrected for nucl RBC Auto (Bld) [#/Vol]11.3 E9/LHigh 4.0-11.0[facility] SystemComment on above:Performed By: #### [id number] #### [facility] [address] [place] [address]WYKFQYHOATplowax By: SYSTEM SYSTEM on 35-37-3904Yuezvcy [Mass/Vol]4.7 g/dLNormal3.3 - 5.0 gm/dLRemisol ChemAlbumin/Globulin [Mass ratio] 1.6 {ratio}Normal1.1 - 2.2Remisol ChemALP [Catalytic activity/Vol]70 [iU]/d Xbcqwc13 - 98 Int._Unit/LRemisol ChemALT No additional P-5'-P [Catalytic activity/Vol]22 [iU]/dNormal6 - 46 Int._Unit/LRemisol ChemAnion gap [Moles/Vol] 22 mmol/LHigh6 - 16 mEq/LRemisol ChemAST [Catalytic activity/Vol]23 [iU]/dNormal 5 - 43 Int._Unit/LRemisol ChemBilirubin [Mass/Vol]0.9 mg/dLNormal0.0 - 1.1 mg/dL Remisol ChemBilirubin.direct [Mass/Vol]0.1 mg/dLNormal0.0 - 0.4 mg/dLRemisol ChemBilirubin.indirect [Mass or moles/Vol]0.8 mg/dLNormal0.1 - 0.9 mg/dLRemisol ChemCalcium [Mass/Vol]9.2 mg/dLNormal8.9 - 11.1 mg/dLRemisol ChemChloride [Moles/Vol]104 mmol/SPaivov523 - 111 mmol/LRemisol ChemCO2 [Moles/Vol]15 mmol/L Low21 - 31 mmol/LRemisol ChemCreatinine [Mass/Vol]0.7 mg/dLNormal0.5 - 1.3 mg/dL Remisol YjuxlELH094 mL/min/1.73 t9Hspibo>=59mL/min/1.73 e8Jfwezzs ChemGlobulin (S) [Mass/Vol]2.9 g/dLNormal1.4 - 4.0 gm/dLRemisol ChemGlucose [Mass/Vol]127 mg/jTOgexfb08 - 199 mg/dLRemisol ChemLipase [Catalytic activity/Vol]12 U/LLow13 - 58 unit/LRemisol ChemMagnesium [Mass/Vol]1.7 mg/dLNormal1.3 - 2.4 mg/dLRemisol ChemPotassium [Moles/Vol]2.6 mmol/LInvalid Interpretation Code3.5 - 5.3 mmol/L Remisol ChemComment on above:Result Comment: Critical Result Verified by Repeat Analysis Critical Result S_K:2.6 Called to and read back by: PHILIP WALL/FELISHA at: 11/08/2023 00:43:31 by:PIERRE DUFFEYProtein [Mass/Vol]7.6 g/dLNormal6.0 - 7.8 gm/dLRemisol ChemSodium [Moles/Vol]138 mmol/YBbnigm855 - 145 mmol/LRemisol ChemTroponin HS pg/mLLow10.10 - 27.10 pg/mLRemisol ChemComment on above:Interpretive Data: The 95% CI (Confidence Interval) PPV (Positive Predictive Value) for myocardial i nfarction in females is 38 pg/mL, in males 51 pg/mL. The results should be used in conjunction withclinical conditions of myocardial infarction. (Access High Sensitivity Troponin I Instructions For Use, Valentina Laurie, September 2017)Urea nitrogen [Mass/Vol]14 mg/dLNormal5 - 21 mg/dLRemisol ChemUrea nitrogen/Creatinine [Mass ratio]20 mg/reAomrkb27 - 20Remisol ChemCOAGULATION Ordered By: Allegra Jon on 29-42-4488cWDV Coag (PPP) [Time]33.0 uNgepug65.1 - 36.5 second(s)[facility] Auto CoagComment on above:Interpretive Data: Parameter 15 days - 4 weeks 1 - [...] coagulation reagent and instrumentation as [facility]. Currently there are no coagulation studies available worldwide for children to 14 days, andno normal ranges. Heparin therapeutic range (represented by Anti-Factor Xa activity of 0.2 - 0.4 U/mL) corresponds to PTT of 56.6 - 109.0 sec.INR Coag (PPP) [Relative time]1.06 {INR}Invalid Interpretation CodeHILLCREST HOSPITAL PR[facility] Auto CoagComment on above:Interpretive Data: INR results are specifically intended to assess patients stabilized on long-term Anticoagulation therapy suggested INR s Less Intensive Anticoagulation 2.0 3.0 Conventional Range 3.0 4.5PT Coag (PPP) [Time]11.9 sNormal9.4 - 12.5 second(s) [facility] Auto CoagComment on above:Interpretive Data: 15 days - 4 weeks 1 - 5 months 6 -11 months 1-5 years 6-10 years 11 -17 years Mean: 11.2 (9.5-12.6) Mean: 11.0 (9.7-12.8) Mean: 11.0 (9.8-13.0) Mean: 11.3 (9.9-13.4) Mean: 11.7 (10.0-14.6) Mean: 11.8 (10.0 - 14.1) Pediatric Reference ranges were obtained from a study by Kyle Siddiqui et al. prepared from 1437 samples obtained at 7 different centers using the same coagulation reagent and instrumentation as [facility]. Currently there are no coagulation studies available worldwide for children to 14 days, andno normal ranges.ED Clinical Summaryon [id number] Clinical SummaryED Clinical Summary [place] [id number] ED Clinical Summary Person Information Name: RUTH GROSSMAN/[facility] Age: 28 Years : 1995 Sex: Female Language: Australian PCP: NONE, XXXX Marital Status: Single Phone: [phone] Visit Id: Visit Reason: Anxiety; Abdominal pain; Weakness or fatigue; abd pain weakness Speciality: Acuity: 3 Enc Type: Emergency Med Service: Emergency Arrival: 11/07/2023 23:21:05 Discharge: 11/08/2023 06:04:44 LOS: 000 06:43 Checkin: 11/07/2023 23:21:05 Checkout: 11/08/2023 06:04:44 Dispo Type: Home (Routine DC) EVENTS: Event Name Event Status Request Date/Time Start Date/Time Complete Date/Time Arrive Complete 11/07/2023 23:21:05 11/07/2023 23:21:05 11/07/2023 23:21:05 Document Home Meds Request 11/07/2023 23:21:05 Triage Complete 11/07/2023 23:21:05 11/07/2023 23:38:57 11/07/2023 23:38:57 EKG Complete 11/07/2023 23:26:20 11/07/2023 23:54:56 Bed Assign Complete 11/07/2023 23:30:16 11/07/2023 23:30:16 11/07/2023 23:30:16 Dr Exam Complete 11/07/2023 23:30:16 11/07/2023 23:32:14 11/07/2023 23:32:14 RN Exam Complete 11/07/2023 23:30:16 11/08/2023 00:07:54 11/08/2023 00:07:54 Registration Complete 11/07/2023 23:32:14 11/08/2023 00:51:39 11/08/2023 00:51:39 Pending Labs Complete 11/07/2023 23:51:39 11/08/2023 00:43:43 Lab Complete 11/07/2023 23:51:39 11/08/2023 00:43:43 Patient Care Request 11/07/2023 23:51:39 RT Request 11/07/2023 23:51:39 X-Ray Complete 11/07/2023 23:51:39 11/08/2023 00:23:19 11/08/2023 00:37:17 Meds Admin Complete 11/07/2023 23:51:39 11/08/2023 00:02:02 Pending Labs Complete 11/08/2023 00:09:52 11/08/2023 00:09:52 11/08/2023 00:43:43 Lab Complete 11/08/2023 00:09:52 11/08/2023 00:09:52 11/08/2023 00:43:43 Wet Read Request 11/08/2023 00:37:17 Reg Complete Request 11/08/2023 00:51:39 Reg Bed Request Complete 11/08/2023 00:51:39 11/08/2023 00:51:39 11/08/2023 00:51:39 Meds Admin Complete 11/08/2023 00:52:34 11/08/2023 05:54:07 Meds Admin Complete 11/08/2023 00:55:50 11/08/2023 01:09:09 Meds Admin Complete 11/08/2023 01:06:18 11/08/2023 01:20:09 Meds Admin Complete 11/08/2023 02:55:22 11/08/2023 03:08:45 Discharge Complete 11/08/2023 05:15:04 11/08/2023 06:04:48 11/08/2023 06:04:48 Transfer Complete 11/08/2023 06:04:48 11/08/2023 06:04:48 11/08/2023 06:04:48 ADDRESS: [address] [place] [phone] PHYS DOC NOTES: MEDICAL INFORMATION: Prescriptions Given: New Medications [id number], [address] [place], [place] [id number], [phone] promethazine (promethazine 12.5 mg oral tablet) 1 Tablets By Mouth every 8 hours as needed as needed for nausea/vomiting. second line nausea. Refills: 0. Medications to Continue Taking That Have Changed [facility]/pharmacy #[id number], [address] [place], [place] [id number], [phone] START: ondansetron (Zofran ODT 4 mg Tab-Dis) 1 Tablets By Mouth every 8 hours as needed Nausea/Vomiting. first line nausea. Refills: 0. Other Medications START: ondansetron (Zofran ODT 4 mg Tab-Dis) 1 Tablets By Mouth every 6 hours as needed Nausea/Vomiting. Refills: 0. Medications to Continue with No Changes Other Medications citalopram (citalopram 20 mg Tab) dicyclomine (Bentyl 10 mg Cap) 2 Capsules By Mouth 4 times a day. Refills: 0. PATIENT EDUCATION INFORMATION: Instructions: Muscle Cramps and Spasms; Hypokalemia Follow up: With: Address: When: [address] [place] [id number] Business (1) In 3 days 11/11/2023 DIAGNOSIS: Hypokalemia; Muscle spasmNormalFisher Brian Medical CenterED Note-Physicianon [id number] Note-PhysicianED Note-Physician Basic Information Time Seen: Ritesh Pascal DO 11/07/2023 23:32 Chief Complaint Pt. reports weakness and lower abdominal pain started 2 hours ago. Pt. stated im concerned about mastitis . Pt. denies n/v and fever. aox4. Also appears anxious. History of Present Illness HPI: Patient is a 28-year-old female who is previously healthy presents the ED for generalized weakness and muscle cramping. Patient states that this for started 2 hours ago and has been constant since that time. She started having generalized fatigue and feelings of generalized weakness and musclecramping. She states that she also feels lightheaded with this. She denies any nausea or vomiting. She denies any fever or chills. She denies any urinary symptoms. She does state that she is breast-feeding but has not noticed any redness or irritation of her breast. ROS: Pertinent review of systems conducted and is negative except as noted above. Physical exam: General: nontoxic appearing and in no distress HEENT: Mucous membranes moist Neuro: awake and alert Neck: supple, trachea midline Card: Heart regular rate and rhythm no murmur Resp: Lungs clear to auscultation no wheeze or rhonchi Abd: Soft and nondistended. No tenderness to palpation with no rebound or guarding. Ext: No gross deformity or edema Physical Exam Vitals & Measurements T: 36.5 ?C(Oral) HR: 82(Peripheral) RR: 25 BP: 104/65 SpO2: 100% HT: 160 cm WT: 60 kg BMI: 23.44 Medical Decision Making MEDICAL DECISION MAKING Number and Complexity of Problems Differential Diagnosis: [] [facility] Data External documents reviewed: N/A My EKG interpretation: Noted in chart if applicable My CT interpretation: N/A My X-ray interpretation: Noted in chart if applicable My Ultrasound interpretation: N/A Decision rules/scores evaluated: N/A Discussed with: N/A Treatment and Disposition ED Course: Is nontoxic-appearing in no distress. She is anxious and hyperventilating on arrival. She does have some cramping of her muscles and is having a hard time finding a comfortable position. She is also having some nausea now. We will give her IV fluids as well as IV magnesium and hydroxyzine as we obtain a workup. Will also give her Zofran for the nausea. She continued to have the nausea states she was given Phenergan and eventually Reglan and Benadryl. Blood work shows a significant hypokalemia of 2.6. We will start both oral and IV replacement. I did discuss these results with the patient and family at bedside. After the potassium replacement as well as the other medications the patient states she is startingto feel significantly better. We discussed the plan of discharge with a prescription for Zofran andPhenergan as needed. She will continue oral hydration and increase her oral potassium intake. We discussed the need for close follow-up with her primary care physician in the office this week. We discussed return precautions. Patient states understanding agreement this plan was discharged stable condition. Shared decision making: As above Code status: N/A Assessment/Plan Hypokalemia (E87.6: Hypokalemia) Muscle spasm (M62.838: Other muscle spasm) Orders: diphenhydrAMINE, 25 mg = 0.5 mL, Injection, IV Push, Once, Stop date 11/08/23 2:55:00 EDT, STAT, Start date 11/08/23 2:55:00 EDT, 11/08/23 2:55:00 EDT hydrOXYzine, 25 mg = 1 tab(s), Tab, Oral, Once, Stop date 11/07/23 23:51:00 EDT, STAT, Start date 11/07/23 23:51:00 EDT, 11/07/23 23:51:00 EDT Lactated Ringers Injection, 1,000 mL, Soln-IV, IV, Once, Stop date 11/07/23 23:50:00 EDT, STAT, Start date 11/07/23 23:50:00 EDT, mL/hr, Infuse over 61, minute(s) magnesium sulfate + Dextrose 5% in Water intravenous solution 100 mL, 1 gram = 100 mL, Soln-IV, IV Piggyback, Once, Stop date 11/07/23 23:50:00 EDT, STAT, Start date 11/07/23 23:50:00 EDT, 300 mL/hr,Infuse over 20 minute(s), 11/07/23 23:50:00 EDT metoclopramide, 10 mg = 2 mL, Injection, IV Push, Once, Stop date 11/08/23 2:55:00 EDT, STAT, Startdate 11/08/23 2:55:00 EDT, 11/08/23 2:55:00 EDT ondansetron, 4 mg = 2 mL, Injection, IV, Once, Stop date 11/08/23 0:08:00 EDT, Start date 11/08/23 0:08:00 EDT ondansetron, 4 mg = 1 tab(s), Oral, q8hr, PRN Nausea/Vomiting, first line nausea, # 16 tab(s), Refills(s) 0, Pharmacy: [facility]/pharmacy #[id number], 160, cm, 11/07/23 23:38:00 EDT, Height/Length Dosing, 60, kg, 11/07/23 23:38:00 EDT, Weight Dosing orphenadrine, 60 mg = 2 mL, Injection, IV Push, Once, Stop date 11/08/23 0:55:00 EDT, STAT, Start date 11/08/23 0:55:00 EDT, 11/08/23 0:55:00 EDT potassium chloride, 40 mEq = 2 tab(s), Tab-ER, Oral, Once, Stop date 11/08/23 0:52:00 EDT, STAT, Start date 11/08/23 0:52:00 EDT, 11/08/23 0:52:00 EDT potassium chloride + Generic Diluent 100 mL, 20 mEq = 100 mL, IV Piggyback, q2hr for 2 dose(s), Stop date 11/08/23 4:51:00 EDT, STAT, Start date 11/08/23 0:52:00 EDT, 50 mL/hr, Infuse over 2 hour(s),11/08/23 0:52:00 EDT promethazine, 12.5 mg = 1 tab(s), Oral, (more content not included)...Normal [facility] SystemComment on above:Result Comment: Electronically Signed By: Ritesh Pascal DO\.br\Date and Time Signed: 11/08/23 05:16 EDTED Patient Summaryon [id number] Patient SummaryED Patient Summary [address] [address] Patient Discharge Instructions Person Information Name: RUTH GROSSMAN Age: 28 Years Arrival Date: 11/07/2023 23:21:05 Discharge Diagnosis: Hypokalemia; Muscle spasm Primary Care Physician: NONE, XXXX Provider Information Primary Provider: Ritesh Pascal DO Advanced Cream Cheese Maker:None The exam and treatment you received in the Emergency Department were for an urgent problem and are not intended as complete care. It is important that you follow up with a doctor, nurse practitioner,or physician?s study assistant for ongoing care. If your symptoms become worse or you do not improve as expected and you are unable to reach your usual health care provider, you should return to the Emergency Department. We are available 24 hours a day. RUTH GROSSMAN has been given the following list of patient education materials, prescriptions and follow-up instructions: Follow-up Instructions: With: Address: When: Mate[address] [place], [place] [id number] Business (1) In 3 days 11/11/2023 In the event that this physician does not participate in your insurance network, please consult with your insurance company to find a nearby participating provider. Patient Education Materials: Muscle Cramps and Spasms; Hypokalemia A MESSAGE TO ALL PATIENTS REGARDING OPIOIDS PRESCRIPTION OPIOIDS: WHAT YOU NEED TO KNOW Prescription opioids can be used to help relieve zzmgzokr-zm-gndlgd pain and are often prescribed following a [...] and have fewer risks and side effects. Optionsmay include: ? Pain relievers such as acetaminophen, [...] unused prescription opioids: Find your community drug take- back program or yourpharmacy mail-back program, or flush them down the toilet, following guidance from the Food and Drug Administration (www.fda.gov/Drugs/ResourcesForYou). ? Visit www.cdc.gov/drugoverdose to learn about the risks of opioids abuse and overdose. ? If you believe you may be struggling with addiction, tell your health care specialist and ask for guidance or call SAMHSA?S National Helpline at 0-584-9 (more content not included)...[facility] CenterHEMATOLOGYOrdered By: SYSTEM SYSTEM on 54-70-8531Tapfkouit/100 WBC (Bld)0.7 %Normal0.0 - 2.0 % Remisol HemeBasophils/Leukocytes Auto (Bld) [Pure # fraction]0.1 E9/LNormal0.0 - 0.2 E9/LRemisol HemeEosinophils (Bld) [#/Vol]0.0 E9/LNormal0.0 - 0.5 E9/LRemisol HemeEosinophils/100 WBC (Bld)0.4 %Normal0.0 - 8.0 %Remisol HemeErythrocyte distribution width (RBC) [Ratio]14.4 %High10.9 - 14.2 %Remisol HemeHematocrit (Bld) [Volume fraction]38.8 %Nroznw28.0 - 46.0 %Remisol HemeHemoglobin (Bld) [Mass/Vol]13.1 g/xDPmrycm19.0 - 16.0 gm/dLRemisol HemeLymphocytes (Bld) [#/Vol] 1.1 E9/LNormal1.0 - 4.0 E9/LRemisol HemeLymphocytes/100 WBC (Bld)9.7 %Low14.0 - 50.0 %Remisol HemeMCH (RBC) [Entitic mass]28.5 rsPmdqld69.0 - 34.0 pgRemisol HemeMCHC (RBC) [Mass/Vol]33.9 g/vNAtwsto66.4 - 36.0 gm/dLRemisol HemeMCV (RBC) [Entitic vol]84.2 cNEszzau81.0 - 100.0 fLRemisol HemeMonocytes (Bld) [#/Vol]0.3 E9/LNormal0.2 - 1.0 E9/LRemisol HemeMonocytes/100 WBC (Bld)3.1 %Low4.0 - 14.0 % Remisol HemeNeutrophils (Bld) [#/Vol]9.7 E9/LHigh2.0 - 7.5 E9/LRemisol Heme Neutrophils/100 WBC (Bld)86.1 %High36.0 - 75.0 %Remisol HemePlatelet mean volume (Bld) [Entitic vol]8.0 fLNormal6.4 - 10.8 fLRemisol HemePlatelets (Bld) [#/Vol] 287.0 E9/GCwvjcn974.0 - 500.0 E9/LRemisol HemeRBC (Bld) [#/Vol]4.6 E12/LNormal 4.3 - 5.9 E12/LRemisol HemeWBC corrected for nucl RBC Auto (Bld) [#/Vol]11.3 E9/LHigh4.0 - 11.0 E9/LRemisol HemeHep Func Panelon 01-29-9953Ahyajlp [Mass/Vol] 4.7 g/dLNormal3.3-5.0[facility] SystemComment on above:Performed By: #### [id number] #### [facility] [address], [place] [address]Gbgrixq/Globulin (S) [Mass conc ratio]1.5Axitmr9.1-2.2FOhioHealth O'Bleness HospitalComment on above:Performed By: #### [id number] #### [facility] [address], [place] [address]BLC [Catalytic activity/Vol]70 Int._Unit/KOjwaov26-81MqqcgrBlanchard Valley Health SystemComment on above:Performed By: #### [id number] #### [facility] [address], [place] [address]VPD No additional P-5'-P [Catalytic activity/Vol]22 Int._Unit/L Normal6-46[facility] SystemComment on above:Performed By: #### [id number] #### [facility] [address], [place] [address]YTC [Catalytic activity/Vol]23 Int._Unit/LNormal5-43[facility] SystemComment on above:Performed By: #### [id number] #### [facility] [address], [place] [address]Kghudfklu [Mass/Vol]0.9 mg/dLNormal0.0-1.1FOhioHealth O'Bleness HospitalComment on above:Performed By: #### [id number] #### [facility] [address] [place] [address]Jissckswj.direct [Mass/Vol]0.1 mg/dLNormal0.0-0.4FOhioHealth O'Bleness HospitalComment on above:Performed By: #### [id number] #### [facility] [address] [place] [address]Vkmtochdq.indirect [Mass or moles/Vol]0.8 mg/dLNormal0.1-0.9 [facility] SystemComment on above:Performed By: #### [id number] #### [facility] [address] [place] [address]Sgdbonsf (S) [Mass/Vol]2.9 g/dLNormal1.4-4.0[facility] SystemComment on above:Performed By: #### [id number] #### [facility] [address] [place] [address]Xdoabym [Mass/Vol]7.6 g/dLNormal6.0-7.8[facility] SystemComment on above:Performed By: #### [id number] #### [facility] [address] [place] [address]Wcryrn Levelon 31-56-0049Yfgeiw [Catalytic activity/Vol]12 U/L Mha79-21PpjysnBlanchard Valley Health SystemComment on above:Performed By: #### [id number] #### [facility] [address] [place] [address]ZEYCV OTHER TESTSOrdered By: Allegra Jon on 22-74-8801Fwkve COV Int NEG CtlPass (11/08/23 12:12 AM)NormalH[facility] Man SeroRapid COV Int POS CtlPass (11/08/23 12:12 AM)NormalH[facility] Man SeroSARS-CoV+SARS-CoV-2 (COVID-19) Ag IA.rapid Ql (Resp)Not Detected 6 (11/08/23 12:12 AM)NormalNot DetectedHILLCREST HOSPITAL [facility] Man SeroComment on above:Interpretive Data: The BD Veritor System for Rapid Detection of SARS-CoV-2 is a chromatographic digital immunoassay intended for the direct and qualitative detection of SARS-CoV-2 nucleocapsid antigens in nasal swabs from individuals who are suspected of COVID-19 by their healthcare provider withinthe first five days of the onset of symptoms. Negative results should be treated as presumptive, do not rule out SARS-CoV-2 infection and should not be used as the sole basis for treatment or patient management decisions, including infection control decisions. Negative results should be considered in the context of a patient s recent exposures, history and the presence of clinical signs and symptoms consistent with COVID-19, and confirmed with a molecular assay, if necessary, for patient management. For in vitro diagnostic use. In the [place], only for use under an Emergency Use Authorization. In the [place], this test has not been FDA cleared or approved; this test has been authorized by FDA under an EUA for use by authorized laboratories; use by laboratories certified under the CLIA, 42 U.S.C. 263a, that meet requirements to perform moderate, high, or waived complexity tests and at the Point of Care (POC), i.e., in patient care settings operating under a CLIA Certificate of Waiver, Certificate of Compliance, or Certificate of Accreditation. This test has been authorized only for the detection of proteins from SARS-CoV-2, not for any otherviruses or pathogens; and, in the [place], this test is only authorized for the duration of the declaration that circumstances exist justifying the authorization of emergency use of in vitro diagnostics for detection and/or diagnosis of the virus that causes COVID-19 under Section 564(b)(1) of the Act,21 U.S.C. 360bbb-3(b)(1), unless the authorization is terminated or revoked sooner.Magnesiumon 32-46-2306Tizzsskof [Mass/Vol]1.7 mg/dL Normal1.3-2.4Fisher [facility] Orthopaedic InstituteComment on above:Performed By: #### [id number] #### [facility] [address], [place] [address]DF & PTTon 17-19-7464bUFS Coag (PPP) [Time]33.0 second(s)Normal 25.1-36.5FOhioHealth O'Bleness HospitalComment on above:Result Comment: Parameter 15 days - 4 weeks 1 - [...] coagulation reagent and instrumentation as [facility]. Currently there are no coagulation studies available worldwide for children to 14 days, andno normal ranges. Heparin therapeutic range (represented by Anti-Factor Xa activity of 0.2 - 0.4 U/mL) corresponds to PTT of 56.6 - 109.0 sec.Performed By: #### [id number] #### [facility] [address], [place] [address]XPR Coag (PPP) [Relative time]1.06 {INR}Invalid Interpretation CodeDavionSinai Hospital of BaltimoreComment on above:Result Comment: INR results are specifically intended to assess patients stabilized on long-term Anticoagulation therapy suggested INR?s ?Less Intensive Anticoagulation? 2.0 ? 3.0 Conventional Range 3.0 ? 4.5Performed By: #### [id number] #### [facility] [address], [place] [address]CJ Coag (PPP) [Time]11.9 second(s)Normal9.4-12.5FOhioHealth O'Bleness HospitalComment on above:Result Comment: 15 days - 4 weeks 1 - 5 months 6 -11 months 1-5 years 6-10 years 11 -17 years Mean: 11.2 (9.5-12.6) Mean: 11.0 (9.7-12.8) Mean: 11.0 (9.8-13.0) Mean: 11.3 (9.9-13.4) Mean: 11.7 (10.0-14.6) Mean: 11.8 (10.0 - 14.1) Pediatric Reference ranges were obtained from a study by Kyle Siddiqui et al. prepared from 1437 samples obtained at 7 different centers using the same coagulation reagent and instrumentation as [facility]. Currently there are no coagulation studies available worldwide for children to 14 days, andno normal ranges.Performed By: #### [id number] #### [facility] [address], [place] [address]Kfexe COVID Antigen ([facility])on 35-93-4347Ggnzu COV Int NEG Ctl PassNormTuscarawas HospitalComment on above:Performed By: #### [id number] #### [facility] [address], [place] [address]Pdfle COV Int POS CtlPassNormTuscarawas Hospital Comment on above:Performed By: #### [id number] #### [facility] [address], [place] [address]JFDA-DcF+SARS-CoV-2 (COVID-19) Ag IA.rapid Ql (Resp)Not detectedNormalNot DetectedBlanchard Valley Health SystemComment on above:Result Comment: The Distech Controlsitor? System for Rapid Detection of SARS-CoV-2 is a chromatographic digital immunoassay intended for the direct and qualitative detection of SARS-CoV-2 nucleocapsid antigensin nasal swabs from individuals who are suspected of COVID-19 by their healthcare provider within the first five days of the onset of symptoms. Negative results should be treated as presumptive, do not rule out SARS-CoV-2 infection and should not be used as the sole basis for treatment or patient management decisions, including infection control decisions. Negative results should be considered in the context of a patient?s recent exposures, history and the presence of clinical signs and symptoms consistent with COVID-19, and confirmed with a molecular assay, if necessary, for patient management. For in vitro diagnostic use. In the [place], only for use under an Emergency Use Authorization. In the [place], this test has not been FDA cleared or approved; this test has been authorized by FDA under an EUA for use by authorized laboratories; use by laboratories certified under the CLIA, 42 U.S.C. ?263a, that meet requirements to perform moderate, high, or waived complexity tests and at the Point of Care (POC), i.e., in patient care settings operating under a CLIA Certificate of Waiver, Certificate of Compliance, or Certificate of Accreditation. This test has been authorized only for the detection of proteins from SARS-CoV-2, not for any otherviruses or pathogens; and, in the [place], this test is only authorized for the duration of the declaration that circumstances exist justifying the authorization of emergency use of in vitro diagnostics for detection and/or diagnosis of the virus that causes COVID-19 under Section 564(b)(1) of the Act,21 U.S.C. ? 360bbb-3(b)(1), unless the authorization is terminated or revoked sooner.Performed By: #### [id number] #### [facility] [address], [place] [address]Ixbpfkgc 0 Hr.on 79-49-5197Kgyxwbmb HS<2.35Lvz81.10-27.10FishSinai Hospital of BaltimoreComment on above:Result Comment: The 95% CI (Confidence Interval) PPV (Positive Predictive Value) for myocardial infarction in females is 38 pg/mL, in males 51 pg/mL. The results should be used in conjunction with clinical conditions of myocardial infarction. (Access High Sensitivity Troponin I Instructions For Use, Valentina Tyrone, September 2017)Performed By: #### [id number] #### [facility] [address], [place] [address]YB Chest Single Viewon 50-15-1839CC Chest Single ViewExam Date/Time: 11/08/2023 00:37 EDT Reason for Exam: Chest pain Report IMPRESSION: NO RADIOGRAPHIC EVIDENCE OF ACUTE INTRATHORACIC PROCESS. EXAM: XR Chest Single View History: Chest pain Technique: Portable AP view of the chest. Comparison: None available Findings: The cardiomediastinal silhouette is within normal limits. No pneumothorax, pleural effusion, or consolidation. No acute osseous abnormality. Ordering Provider: Ritesh Pascal FINAL REPORT Dictated: 11/08/2023 10:34 am Jhony Leon DO Signed (Electronic Signature): 11/08/2023 10:34 am Signed by: Jhony Leon DO Transcribed by: JUAN FRANCISCO Technologist: REJI Technical Comments Radiation Dose: Ka,r in mGy = 0 DAP = 0NormalBlanchard Valley Health SystemeGFRon 30-21-6677aAOB925 mL/min/1.73 m2 Normal>=59[facility] SystemComment on above:Order Comment: Order added by Discern Expert.Performed By: #### [id number] #### [facility] [address], [place] [address]XD OB GROWTHon 36-70-[place], [place] [address] Ultrasound Report Signed Patient: RUTH GROSSMAN MR#: [id number] : 1995 Acct:[id number] Age/Sex: 28 / F ADM Date: 07/22/23 Loc: [facility] Attending Dr: Lucia No Ordering Physician: Lucia No Date of Service: 07/22/23 Procedure(s): US OB growth Accession Number(s): [id number] cc: Lucia No; Physician,Non-Staff M.DBert [address] [address] Patient Name: RUTH GROSSMAN MRN: [id number] date: 1995 Sex: F Assigned Patient Location: [facility] Current Patient Location: [facility] Accession/Order Number: [id number] Exam Date: 07/22/2023 10:10 Report Date: 07/22/2023 10:50 At the request of: LUCIA NO Procedure: US OB growth EXAMINATION: US OB growth HISTORY: LARGE FOR GESTATIONAL AGE COMPARISON: 04/09/2023 FINDINGS: Heart Rate: 155.0 bpm Amniotic Fluid Volume: 13.8 cm Number: 1.0 Position: Cephalic presentation, longitudinal lie Maximum Vertical Pocket: 5.8 cm cm 3.3 cm cm 1.4 cm cm 3.4 cm cm BIOMETRY: BPD: 8.7 cm cm; 35 weeks 2 days; 63% HC: 31.3 cmcm; 35 weeks 0 days, 20% AC: 34.0 cm cm; 37 weeks 6 days, greater than 97% FL: 6.9 cm cm; 35 weeks 4 days; 62.7 % % EFW: 3016.9 grams, 92%, 6 lbs. 10 oz. FL/AC: 20.4 FL/BPD: 79.5 HC/AC: 0.9 GESTATIONAL AGE: Age by EDC: 34 weeks 6 days MARIO by EDC: 08/27/2023 Age by US: 36 weeks 0 days MARIO by US: 08/19/2023 US/US OB growth IMPRESSION: Abdominal circumference greater than the 97th percentile Estimated weight 92nd percentile Electronically authenticated by: WENDY GALARZA Date: 07/22/2023 10:50 Dictated By: Wendy Galarza M.D. Signed By: 07/22/23 1053 DD/ 105 TD/TT: Telephone Maintainer:KEYANNAHRadiology, Radiologist, - 07/22/2023 [place] [address] Ultrasound Report Signed Patient: RUTH GROSSMAN MR#: [id number] : 1995 Acct:[id number] Age/Sex: 28 / F ADM Date: 07/22/23 [facility]: [facility] Attending Dr: Lucia No Ordering Physician: Lucia No Date of Service: 07/22/23 Procedure(s): US OB growth Accession Number(s): [id number] cc: Lucia No; Physician,Non-Staff MDaniella The [address] [address] Patient Name: RUTH GROSSMAN MRN: [id number] date: 1995 Sex: F Assigned Patient Location: [facility] Current Patient Location: [facility] Accession/Order Number: [id number] Exam Date: 07/22/2023 10:10 Report Date: 07/22/2023 10:50 At the request of: LUCIA NO Procedure: US OB growth EXAMINATION: US OB growth HISTORY: LARGE FOR GESTATIONAL AGE COMPARISON: 04/09/2023 FINDINGS: Heart Rate: 155.0 bpm Amniotic Fluid Volume: 13.8 cm Number: 1.0 Position: Cephalic presentation, longitudinal lie Maximum Vertical Pocket: 5.8 cm cm 3.3 cm cm 1.4 cm cm 3.4 cm cm BIOMETRY: BPD: 8.7 cm cm; 35 weeks 2 days; 63% HC: 31.3 cmcm; 35 weeks 0 days, 20% AC: 34.0 cm cm; 37 weeks 6 days, greater than 97% FL: 6.9 cm cm; 35 weeks 4 days; 62.7 % % EFW: 3016.9 grams, 92%, 6 lbs. 10 oz. FL/AC: 20.4 FL/BPD: 79.5 HC/AC: 0.9 GESTATIONAL AGE: Age by EDC: 34 weeks 6 days MARIO by EDC: 08/27/2023 Age by US: 36 weeks 0 days MARIO by US: 08/19/2023 US/US OB growth IMPRESSION: Abdominal circumference greater than the 97th percentile Estimated weight 92nd percentile Electronically authenticated by: WENDY GALARZA Date: 07/22/2023 10:50 Dictated By: Wendy Galarza M.D. Signed By: 07/22/23 1053 DD/ 1050 TD/TT: Telephone Maintainer: WILBER HealthcareRadiology Study observation (narrative)[facility] BrendanUS OB GROWTHOrdered By: Radiologist Radiology on [id number] Work Phone: no Panel InformationOrdered By: Radiologist Radiology on [id number] Work Phone: no Panel Informationon [id number] Study observation (narrative)NOMJeremiah CardonaUS OB CERVICAL LENGTHon [id number], [place] [address] Ultrasound Report Signed Patient: RUTH GROSSMAN MR#: [id number] : 1995 Acct:[id number] Age/Sex: 27 / F ADM Date: 05/11/23 Loc: [facility] Attending Dr: Clarke Rebolledo D.O. Ordering Physician: Clarke Rebolledo D.O. Date of Service: 05/11/23 Procedure(s): US OB cervical length Accession Number(s): [id number] cc: Clarke Rebolledo D.O.; Physician,Non-Staff John The [address] [id number] Patient Name: RUTH GROSSMAN MRN: [id number] date: 1995 Sex: F Assigned Patient Location: [facility] Current Patient Location: [facility] Accession/Order Number: [id number] Exam Date: 05/11/2023 13:35 Report Date: 05/11/2023 14:15 At the request of: CLARKE REBOLLEDO Procedure: US OB cervical length EXAM: US OB placenta, US OB cervical length HISTORY: LOW LYING PLACENTA COMPARISON: None. TECHNIQUE: Abdominal and transvaginal FINDINGS: The placental edge is 5.5 cm from the internal os Placenta: Posterior. No intraplacental or retroplacental echogenic abnormality position: Cephalic presentation, longitudinal lie Cervix: Closed, 4.2 cm Heart rate: 150 beats minute Clinical age: 24 weeks, 4 days Clinical MARIO: 08/27/2023 US/US OB cervical length IMPRESSION: Normal placenta, the placental edge is 5.5 cm from the internal os Closed cervix measuring 4.2 cm in length Electronically authenticated by: WENDY GALARZA Date: 05/11/2023 14:15 Dictated By: Wendy Galarza M.D. Signed By: 05/11/23 1417 DD/ 1415 TD/TT: Telephone Maintainer:TBHRadiology, Radiologist, - 05/11/2023 The [place] [id number] Ultrasound Report Signed Patient: RUTH GROSSMAN MR#: [id number] : 1995 Acct:[id number] Age/Sex: 27 / F ADM Date: 05/11/23 Loc: NOM[facility] Attending Dr: Clarke Rebolledo D.O. Ordering Physician: Clarke Rebolledo D.O. Date of Service: 05/11/23 Procedure(s): US OB cervical length Accession Number(s): [id number] cc: Clarke Rebolledo D.O.; Physician,Non-Staff John [address] [address] Patient Name: RUTH GROSSMAN MRN: [id number] date: 1995 Sex: F Assigned Patient Location: [facility] Current Patient Location: [facility] Accession/Order Number: [id number] Exam Date: 05/11/2023 13:35 Report Date: 05/11/2023 14:15 At the request of: CLARKE REBOLLEDO Procedure: US OB cervical length EXAM: US OB placenta, US OB cervical length HISTORY: LOW LYING PLACENTA COMPARISON: None. TECHNIQUE: Abdominal and transvaginal FINDINGS: The placental edge is 5.5 cm from the internal os Placenta: Posterior. No intraplacental or retroplacental echogenic abnormality position: Cephalic presentation, longitudinal lie Cervix: Closed, 4.2 cm Heart rate: 150 beats minute Clinical age: 24 weeks, 4 days Clinical MARIO: 08/27/2023 US/US OB cervical length IMPRESSION: Normal placenta, the placental edge is 5.5 cm from the internal os Closed cervix measuring 4.2 cm in length Electronically authenticated by: WENDY GALARZA Date: 05/11/2023 14:15 Dictated By: Wendy Galraza M.D. Signed By: 05/11/23 1417 DD/ 1415 TD/TT: Telephone Maintainer: WILBER Garcia OB PLACENTAon [id number], [place] [address] Ultrasound Report Signed Patient: RUTH GROSSMAN MR#: [id number] : 1995 Acct:[id number] Age/Sex: 27 / F ADM Date: 05/11/23 Loc: [facility] Attending Dr: Clarke Rebolledo D.O. Ordering Physician: Clarke Rebolledo D.O. Date of Service: 05/11/23 Procedure(s): US OB placenta Accession Number(s): [id number] cc: Clarke Rebolledo D.O.; Physician,Non-Staff John [address] [address] Patient Name: RUTH GROSSMAN MRN: [id number] date: 1995 Sex: F Assigned Patient Location: [facility] Current Patient Location: [facility] Accession/Order Number: [id number] Exam Date: 05/11/2023 13:35 Report Date: 05/11/2023 14:15 At the request of: CLARKE REBOLLEDO Procedure: US OB placenta EXAM: US OB placenta, US OB cervical length HISTORY: LOW LYING PLACENTA COMPARISON: None. TECHNIQUE: Abdominal and transvaginal FINDINGS: The placental edge is 5.5 cm from the internal os Placenta: Posterior. No intraplacental or retroplacental echogenic abnormality position: Cephalic presentation, longitudinal lie Cervix: Closed, 4.2 cm Heart rate: 150 beats minute Clinical age: 24 weeks, 4 days Clinical MARIO: 08/27/2023 US/US OB placenta IMPRESSION: Normal placenta, the placental edge is 5.5 cm from the internal os Closed cervix measuring 4.2 cm in length Electronically authenticated by: WENDY GALARZA Date: 05/11/2023 14:15 Dictated By: Wendy Galarza M.D. Signed By: 05/11/23 1417 DD/ 1415 TD/TT: Telephone Maintainer:KEYANNAHRadiology, Radiologist, - 05/11/2023 [place] [address] Ultrasound Report Signed Patient: RUTH GROSSMAN MR#: [id number] : 1995 Acct:[id number] Age/Sex: 27 / F ADM Date: 05/11/23 Loc: [facility] Attending Dr: Clarke Rebolledo D.O. Ordering Physician: Clarke Rebolledo D.O. Date of Service: 05/11/23 Procedure(s): US OB placenta Accession Number(s): [id number] cc: Clarke Rebolledo D.O.; Physician,Non-Staff John The [address] [address] Patient Name: RUTH GROSSMAN MRN: [id number] date: 1995 Sex: F Assigned Patient Location: [facility] Current Patient Location: [facility] Accession/Order Number: [id number] Exam Date: 05/11/2023 13:35 Report Date: 05/11/2023 14:15 At the request of: CLARKE REBOLLEDO Procedure: US OB placenta EXAM: US OB placenta, US OB cervical length HISTORY: LOW LYING PLACENTA COMPARISON: None. TECHNIQUE: Abdominal and transvaginal FINDINGS: The placental edge is 5.5 cm from the internal os Placenta: Posterior. No intraplacental or retroplacental echogenic abnormality position: Cephalic presentation, longitudinal lie Cervix: Closed, 4.2 cm Heart rate: 150 beats minute Clinical age: 24 weeks, 4 days Clinical MARIO: 08/27/2023 US/US OB placenta IMPRESSION: Normal placenta, the placental edge is 5.5 cm from the internal os Closed cervix measuring 4.2 cm in length Electronically authenticated by: WENDY GALARZA Date: 05/11/2023 14:15 Dictated By: Wendy Galarza M.D. Signed By: 05/11/23 1417 DD/ 1415 TD/TT: Telephone Maintainer: WILBER Marcelino Panel InformationOrdered By: Radiologist Radiology on [id number] Work Phone: No Panel Informationon 42-56-1247Hwzjewjud Study observation (narrative)WILBER Garcia OB ANATOMYon 81-57-4030[place], [place] [address] Ultrasound Report Signed Patient: RUTH GROSSMAN MR#: [id number] : 1995 Acct:[id number] Age/Sex: 27 / F ADM Date: 04/09/23 Loc: [facility] Attending Dr: Clarke Rebolledo D.O. Ordering Physician: Clarke Rebolledo D.O. Date of Service: 04/09/23 Procedure(s): US OB anatomy Accession Number(s): [id number] cc: Clarke Rebolledo D.O.; Physician,Non-Staff MDaniella [address] [address] Patient Name: RUTH GROSSMAN MRN: [id number] date: 1995 Sex: F Assigned Patient Location: [facility] Current Patient Location: [facility] Accession/Order Number: [id number] Exam Date: 04/09/2023 08:39 Report Date: 04/09/2023 10:23 At the request of: CLARKE REBOLLEDO Procedure: US OB anatomy EXAMINATION: US OB anatomy, US OB transvaginal HISTORY: ANATOMY COMPARISON: Ultrasound OB transvaginal 01/22/2023 TECHNIQUE: Transabdominal sonographic examination was performed for obstetrical and evaluation. FINDINGS: Number: 1 Heart Rate: 151.0 bpm H.B. /min Amniotic Fluid Volume: Subjectively normal Placental Location: POSTERIOR with lower margin 2.7 cm from os. Cervix Length: 4.6 cm, closed. ANATOMY: Normal Structures -cerebellum, choroid plexus, cisterna magna, lateral cerebral ventricles, orbits, midline falx, hard palate, four-chamber heart, RVOT, LVOT, stomach, kidneys, bladder, umbilical cord insertion into abdomen, three-vessel cord, cervical spine, thoracic spine, lumbar spine, sacral spine, right upper extremity, left upper extremity, right lower extremity, left lower extremity. SUBOPTIMALLY SEEN: None ABNORMALITIES: None BIOMETRY: BPD: 4.2 cm 18 weeks 4 days ; 6% HC: 17.3 cm 19 weeks 6 days; 36% AC: 15.1 cm 20 weeks 2 days; 55% FL: 3.4 cm 20 weeks 5 days ; 67% EFW:347.9 grams; 66% FL/AC: 22.6 FL/BPD: 81.5 HC/AC: 1.2 GESTATIONAL AGE: Age by EDC: 20 weeks 0 days MARIO by EDC: 08/27/2023 Age by current US: 19 weeks 6 days MARIO by current US: 08/28/2023 US/US OB anatomy IMPRESSION: 1. Single live intrauterine with growth detailed above. 2. Low-lying posterior placenta. Electronically authenticated by: SAMIR SHANNON Date: 04/09/2023 10:23 Dictated By: Samir Shannon M.D. Signed By: 04/09/23 1026 DD/ 1023 TD/TT: Telephone Maintainer:JARETHadiology, Radiologist, MD - 04/09/[address] [address] Ultrasound Report Signed Patient: RUTH GROSSMAN MR#: [id number] : 1995 Acct:[id number] Age/Sex: 27 / F ADM Date: 04/09/23 Loc: NOM[facility] Attending Dr: Clarke Rebolledo D.O. Ordering Physician: Clarke Rebolledo D.O. Date of Service: 04/09/23 Procedure(s): US OB anatomy Accession Number(s): [id number] cc: Clarke Rebolledo D.O.; Physician,Non-Staff John The [address] [address] Patient Name: RUTH GROSSMAN MRN: [facility]:[id number] date: 1995 Sex: F Assigned Patient Location: [facility] Current Patient Location: [facility] Accession/Order Number: [id number] Exam Date: 04/09/2023 08:39 Report Date: 04/09/2023 10:23 At the request of: CLARKE REBOLLEDO Procedure: US OB anatomy EXAMINATION: US OB anatomy, US OB transvaginal HISTORY: ANATOMY COMPARISON: Ultrasound OB transvaginal 01/22/2023 TECHNIQUE: Transabdominal sonographic examination was performed for obstetrical and evaluation. FINDINGS: Number: 1 Heart Rate: 151.0 bpm H.B. /min Amniotic Fluid Volume: Subjectively normal Placental Location: POSTERIOR with lower margin 2.7 cm from os. Cervix Length: 4.6 cm, closed. ANATOMY: Normal Structures -cerebellum, choroid plexus, cisterna magna, lateral cerebral ventricles, orbits, midline falx, hard palate, four-chamber heart, RVOT, LVOT, stomach, kidneys, bladder, umbilical cord insertion into abdomen, three-vessel cord, cervical spine, thoracic spine, lumbar spine, sacral spine, right upper extremity, left upper extremity, right lower extremity, left lower extremity. SUBOPTIMALLY SEEN: None ABNORMALITIES: None BIOMETRY: BPD: 4.2 cm 18 weeks 4 days ; 6% HC: 17.3 cm 19 weeks 6 days; 36% AC: 15.1 cm 20 weeks 2 days; 55% FL: 3.4 cm 20 weeks 5 days ; 67% EFW:347.9 grams; 66% FL/AC: 22.6 FL/BPD: 81.5 HC/AC: 1.2 GESTATIONAL AGE: Age by EDC: 20 weeks 0 days MARIO by EDC: 08/27/2023 Age by current US: 19 weeks 6 days MARIO by current US: 08/28/2023 US/US OB anatomy IMPRESSION: 1. Single live intrauterine with growth detailed above. 2. Low-lying posterior placenta. Electronically authenticated by: SAMIR SHANNON Date: 04/09/2023 10:23 Dictated By: Samir Shannon M.D. Signed By: 04/09/23 1026 DD/ 1023 TD/TT: Telephone Maintainer: WILBER Garcia OB TRANSVAGINALon [id number], [place] [address] Ultrasound Report Signed Patient: RUTH GROSSMAN MR#: [id number] : 1995 Acct:[id number] Age/Sex: 27 / F ADM Date: 04/09/23 Loc: [facility] Attending Dr: Clarke Rebolledo D.O. Ordering Physician: Clarke Rebolledo D.O. Date of Service: 04/09/23 Procedure(s): US OB transvaginal Accession Number(s): [id number] cc: Clarke Rebolledo D.O.; Physician,Non-Staff John [address] [address] Patient Name: RUTH GROSSMAN MRN: [id number] date: 1995 Sex: F Assigned Patient Location: [facility] Current Patient Location: [facility] Accession/Order Number: [id number] Exam Date: 04/09/2023 08:39 Report Date: 04/09/2023 10:23 At the request of: CLARKE REBOLLEDO Procedure: US OB transvaginal EXAMINATION: US OB anatomy, US OB transvaginal HISTORY: ANATOMY COMPARISON: Ultrasound OB transvaginal 01/22/2023 TECHNIQUE: Transabdominal sonographic examination was performed for obstetrical and evaluation. FINDINGS: Number: 1 Heart Rate: 151.0 bpm H.B. /min Amniotic Fluid Volume: Subjectively normal Placental Location: POSTERIOR with lower margin 2.7 cm from os. Cervix Length: 4.6 cm, closed. ANATOMY: Normal Structures -cerebellum, choroid plexus, cisterna magna, lateral cerebral ventricles, orbits, midline falx, hard palate, four-chamber heart, RVOT, LVOT, stomach, kidneys, bladder, umbilical cord insertion into abdomen, three-vessel cord, cervical spine, thoracic spine, lumbar spine, sacral spine, right upper extremity, left upper extremity, right lower extremity, left lower extremity. SUBOPTIMALLY SEEN: None ABNORMALITIES: None BIOMETRY: BPD: 4.2 cm 18 weeks 4 days ; 6% HC: 17.3 cm 19 weeks 6 days; 36% AC: 15.1 cm 20 weeks 2 days; 55% FL: 3.4 cm 20 weeks 5 days ; 67% EFW:347.9 grams; 66% FL/AC: 22.6 FL/BPD: 81.5 HC/AC: 1.2 GESTATIONAL AGE: Age by EDC: 20 weeks 0 days MARIO by EDC: 08/27/2023 Age by current US: 19 weeks 6 days MARIO by current US: 08/28/2023 US/US OB transvaginal IMPRESSION: 1. Single live intrauterine with growth detailed above. 2. Low-lying posterior placenta. Electronically authenticated by: SAMIR SHANNON Date: 04/09/2023 10:23 Dictated By: Samir Shannon M.D. Signed By: 04/09/23 1026 DD/ 1023 TD/TT: Telephone Maintainer:JARETHadiology, Radiologist, - 04/29/[address] [address] Ultrasound Report Signed Patient: RUTH GROSSMAN MR#: [id number] : 1995 Acct:[id number] Age/Sex: 27 / F ADM Date: 04/09/23 Loc: [facility] Attending Dr: Clarke Rebolledo D.O. Ordering Physician: Clarke Rebolledo D.O. Date of Service: 04/09/23 Procedure(s): US OB transvaginal Accession Number(s): [id number] cc: Clarke Rebolledo D.O.; Physician,Non-Staff John [place] [id number] Patient Name: RUTH GROSSMAN MRN: [facility]:[id number] date: 1995 Sex: F Assigned Patient Location: [facility] Current Patient Location: [facility] Accession/Order Number: [id number] Exam Date: 04/09/2023 08:39 Report Date: 04/09/2023 10:23 At the request of: CLARKE REBOLLEDO Procedure: US OB transvaginal EXAMINATION: US OB anatomy, US OB transvaginal HISTORY: ANATOMY COMPARISON: Ultrasound OB transvaginal 01/22/2023 TECHNIQUE: Transabdominal sonographic examination was performed for obstetrical and evaluation. FINDINGS: Number: 1 Heart Rate: 151.0 bpm H.B. /min Amniotic Fluid Volume: Subjectively normal Placental Location: POSTERIOR with lower margin 2.7 cm from os. Cervix Length: 4.6 cm, closed. ANATOMY: Normal Structures -cerebellum, choroid plexus, cisterna magna, lateral cerebral ventricles, orbits, midline falx, hard palate, four-chamber heart, RVOT, LVOT, stomach, kidneys, bladder, umbilical cord insertion into abdomen, three-vessel cord, cervical spine, thoracic spine, lumbar spine, sacral spine, right upper extremity, left upper extremity, right lower extremity, left lower extremity. SUBOPTIMALLY SEEN: None ABNORMALITIES: None BIOMETRY: BPD: 4.2 cm 18 weeks 4 days ; 6% HC: 17.3 cm 19 weeks 6 days; 36% AC: 15.1 cm 20 weeks 2 days; 55% FL: 3.4 cm 20 weeks 5 days ; 67% EFW:347.9 grams; 66% FL/AC: 22.6 FL/BPD: 81.5 HC/AC: 1.2 GESTATIONAL AGE: Age by EDC: 20 weeks 0 days MARIO by EDC: 08/27/2023 Age by current US: 19 weeks 6 days MARIO by current US: 08/28/2023 US/US OB transvaginal IMPRESSION: 1. Single live intrauterine with growth detailed above. 2. Low-lying posterior placenta. Electronically authenticated by: SAMIR SHANNON Date: 04/09/2023 10:23 Dictated By: Samir Shannon M.D. Signed By: 04/09/23 1026 DD/ 1023 TD/TT: Telephone Maintainer: WILBER [facility] Medical CenterUrinalysis macro (dipstick) panel (U)on 73-37-5883Qznowhgqy, UA NegativeNegative - 4(70) +++ mg/dLNOMS HealthcareBlood, UANegativeNegative - 50 Luis/mcLNOMS HealthcareClarity, UAClearNOMS HealthcareColor, UAYellowNOMS HealthcareGlucose, UANegativeNegative - 2000(110) ++++ mg/dLNOMS Healthcare Interpretation and review of laboratory resultsNormalNOMS HealthcareKetones, UA NegativeNegative - 160(16) ++++ mg/dLNOMS HealthcareLeukocytes, UANegative Negative - 500+++ Telma/mcLNOMS HealthcareNitrite, UANegativeNegative - Positive NOMS HealthcarepH, UA7.55 - 9NOMS HealthcareProtein, UANegativeNegative - 2000(20) ++++ mg/dLNOMS HealthcareSpec Grav, UA1.0251 - 1.03N[facility] Urobilinogen, UA0.20.2 - 12 mg/dLNOMS HealthcareNOMS HealthcareAuto Diffon 55-77-5811Zsvuvgphx/100 WBC (Bld)0.2 %Normal0.0-2.0[facility] Comment on above:Order Comment: Order Added by Discern Expert.Performed By: #### [id number], 5756565, 6573845, 6641962, 13334155, 5230578, 65910914 #### [facility] [address], [place] [address]Mvozqcuzt/Leukocytes Auto (Bld) [Pure # fraction]0.0 E9/LNormal 0.0-0.2[facility] Healthcare CenterComment on above:Order Comment: Order Added by Mendy Expert.Performed By: #### [id number], 9962693, 8117297, 2367960, 11602488, 1414363, 01767936 #### [facility] [address] [place] [address]Vjcupnbhsqn/100 WBC (Bld)0.1 %Normal0.0-8.0[facility] SystemComment on above:Order Comment: Order Added by Discern Expert.Performed By: #### 1548066, 3205475, 2185864, 0197637, 53445732, 9643215, 08251881 #### [facility] [address] [place] [address]Adkdwogtwax/Leukocytes Auto (Bld) [Pure # fraction]0.0 E9/L Normal0.0-0.5FOhioHealth O'Bleness HospitalComment on above:Order Comment: Order Added by Discern Expert.Performed By: #### 1431872, 9186600, 4350822, 1985572, 59227752, 0232992, 38525683 #### [facility] [address] [place] [address]Pldghcpdlwh/100 WBC (Bld)8.0 %Low14.0-50.0[facility] SystemComment on above:Order Comment: Order Added by Mendy Expert.Performed By: #### 7263777, 0734431, 1903094, 6410355, 39121883, 4565582, 13470541 #### [facility] [address] [place] [address]Tdnzwakcaxs/Leukocytes Auto (Bld) [Pure # fraction]1.1 E9/L Normal1.0-4.0[facility] SystemComment on above:Order Comment: Order Added by Mendy Expert.Performed By: #### 6110077, 4407732, 4653040, 1086220, 47257517, 7881126, 35760713 #### [facility] [address] [place] [address]Xxmnyhwpz/100 WBC (Bld)2.9 %Low4.0-14.0[facility] SystemComment on above:Order Comment: Order Added by Discern Expert.Performed By: #### 3547965, 7283650, 2410865, 0344018, 92092132, 0312438, 90747847 #### [facility] [address], [place] [address]Ajxgodzca/Leukocytes Auto (Bld) [Pure # fraction]0.4 E9/LNormal 0.2-1.0[facility] SystemComment on above:Order Comment: Order Added by Discern Expert.Performed By: #### 7032521, 4630854, 1695873, 4083319, 23379400, 8699126, 10706797 #### [facility] [address] [place] [address]Bnwmjomuvgv/100 WBC (Bld)88.8 %High36.0-75.0[facility] SystemComment on above:Order Comment: Order Added by Discern Expert. Performed By: #### 9599039, 2146349, 1846793, 7770063, 76774306, 0659157, 24522900 #### [facility] [address] [place] [address]Dqbgdetjbjn/Leukocytes Auto (Bld) [Pure # fraction]12.0 E9/L High2.0-7.5FOhioHealth O'Bleness HospitalComment on above:Order Comment: Order Added by Discern Expert.Performed By: #### 2220474, 2091341, 0594257, 6446351, 49060728, 2559246, 91570328 #### [facility] [address] [place] [address]PTCfr 72-18-1797Sxqvemfzih [Mass/Vol]0.5 mg/dLNormal0.5-1.3 [facility] SystemComment on above:Performed By: #### 9020936, 9147661, 6374110, 4144481, 76229880, 3610052, 12460091 #### [facility] [address], [place] [address]Ksxn nitrogen [Mass/Vol]10 mg/dLNormal5-21[facility] SystemComment on above:Performed By: #### 8388819, 0097053, 8567143, 3427547, 43343528, 5037344, 50351863 #### [facility] [address], [place] [address]Pqfo nitrogen/Creatinine [Mass ratio]20 No GehyuVxwniu95-62 [facility] SystemComment on above:Performed By: #### 4398194, 1892873, 6191022, 2165191, 55291908, 2639331, 86548060 #### [facility] [address], [place] [address]Nizfi gap [Moles/Vol]14 mmol/LNormal6-16[facility] SystemComment on above:Performed By: #### 8033946, 7404640, 1159492, 5218221, 23812041, 9477021, 00609393 #### [facility] [address], [place] [address]Hvzwfjh [Mass/Vol]8.9 mg/dLNormal8.9-11.1FOhioHealth O'Bleness HospitalComment on above:Performed By: #### 2366896, 1115765, 7463940, 8422249, 66300846, 8749514, 95135468 #### [facility] [address], [place] [address]Hqsabdfu [Moles/Vol]103 mmol/ZHuxmfg414-384BrjrxlBlanchard Valley Health SystemComment on above:Performed By: #### 5922704, 9297275, 1567779, 3519472, 17984332, 1394028, 06996526 #### [facility] [address], [place] [address]WS3 [Moles/Vol]21 mmol/WFbnord87-65GtorfiBlanchard Valley Health System Comment on above:Performed By: #### 3957009, 7570189, 7792756, 8670775, 68122068, 9270068, 29943859 #### [facility] [address], [place] [address]Ewadlqa [Mass/Vol]119 mg/mJMyvckh08-888BuqveoBlanchard Valley Health SystemComment on above:Result Comment: If this glucose result represents a fasting glucose, interpretation should refer tothe following reference range: 55-99 mg/dLPerformed By: #### 7376017, 1474125, 1697537, 6810214, 33372039, 7471006, 03003089 #### [facility] [address], [place] [address]Mxlmxqfzh [Moles/Vol]3.2 mmol/LLow3.5-5.3FOhioHealth O'Bleness HospitalComment on above:Performed By: #### 5704058, 2093224, 8380275, 5054666, 69512341, 2582577, 84208857 #### [facility] [address], [place] [address]Jxkkvb [Moles/Vol]135 mmol/CNqnpoz202-696VphnqoBlanchard Valley Health SystemComment on above:Performed By: #### 6292662, 1802736, 9143002, 7253510, 03482110, 7555475, 73464856 #### [facility] [address], [place] [address]LiZP Quanton 00-90-0882WTF.beta subunit Zv93926 m[IU]/mLHigh1-3 [facility] SystemComment on above:Result Comment: GESTATIONAL AGE HCG RANGE (mIU/mL) NON- <1-3 0.2-1 WEEKS 5-50 1-2 WEEKS 50-500 2-3 WEEKS 100-5,000 3-4 WEEKS 500-10,000 4-5 WEEKS 1,000-50,000 5-6 WEEKS 10,000-100,000 6-8 WEEKS 15,000-200,000 8-12 WEEKS 10,000-100,000Performed By: #### 5602033 #### [facility] [address], [place] [address]HIN w/ Auto Diffon 07-16-7355Yjegncsghir distribution width (RBC) [Ratio]12.3 %Vitixk23.9-14.2FOhioHealth O'Bleness HospitalComment on above: Performed By: #### 8198127, 9248711, 2984668, 4798367, 44772753, 7776802, 60583675 #### [facility] [address], [place] [address]Ckigwxuhjg (Bld) [Volume fraction]36.5 %Euxvzu69.0-46.0[facility] Health SystemComment on above:Performed By: #### 0571590, 5488322, 4288209, 1531028, 51489749, 4180530, 82303862 #### [facility] [address] [address]Fghjxxgwsa (Bld) [Mass/Vol]12.4 g/hUNuawlx38.0-16.0[facility] SystemComment on above:Performed By: #### [id number], 3062018, 6213655, 1376007, 18313496, 6108003, 95197534 #### [facility] [address], [place] [address]HUH (RBC) [Entitic mass]30.1 ymTwowjz65.0-34.0[facility] Health SystemComment on above:Performed By: #### 8633299, 7540313, 1434059, 1242233, 20864317, 7530870, 26648256 #### [facility] [address], [place] [address]EQHW (RBC) [Mass/Vol]33.9 g/qHXrrnsu15.4-36.0[facility] SystemComment on above:Performed By: #### 4892738, 1584742, 1416515, 1417796, 37818709, 6218543, 47685954 #### [facility] [address], [place] [address]QOD (RBC) [Entitic vol]88.8 dIIkqmdv60.0-100.0[facility] SystemComment on above:Performed By: #### 8534592, 7914029, 4990769, 2293150, 91841336, 6872293, 70413831 #### [facility] [address], [place] [address]Drvqazbr mean volume (Bld) [Entitic vol]7.4 fLNormal6.4-10.8 [facility] SystemComment on above:Performed By: #### 8706114, 5301974, 4122095, 7513995, 57545792, 6447460, 70729471 #### [facility] [address] [place] [address]Ymjqngrpb (Bld) [#/Vol]283.0 E9/XXshwtc696.0-500.0[facility] SystemComment on above:Performed By: #### 6993728, 0378580, 8272766, 3670265, 47603507, 8954008, 30602114 #### [facility] [address] [place] [address]GUJ (Bld) [#/Vol]4.1 E12/LLow4.3-5.9[facility] Comment on above:Performed By: #### 5484223, 4815484, 9850746, 3793851, 07439628, 6477117, 35844840 #### [facility] [address] [place] [address]MWY corrected for nucl RBC Auto (Bld) [#/Vol]13.5 E9/LHigh 4.0-11.0[facility] SystemComment on above:Performed By: #### 3086110, 8995835, 1650804, 8525323, 20561653, 5321340, 95285285 #### [facility] [address] [place] [address]24[address]MOGFPYCMKVqvprxk By: SYSTEM SYSTEM on 57-21-8058Irhsaao [Mass/Vol]4.1 g/dLNormal3.3 - 5.0 gm/dLFTMC RemisolAlbumin/Globulin [Mass ratio] 1.2 {ratio}Normal1.1 - 2.2[facility] RemisolALP [Catalytic activity/Vol]57 [iU]/d Lgixfo82 - 98 Int._Unit/LFTMC RemisolALT No additional P-5'-P [Catalytic activity/Vol]13 [iU]/dNormal6 - 46 Int._Unit/LFTMC RemisolAnion gap [Moles/Vol] 14 mmol/LNormal6 - 16 mEq/LFTMC RemisolAST [Catalytic activity/Vol]26 [iU]/d Normal5 - 43 Int._Unit/LFTMC RemisolBilirubin [Mass/Vol]1.0 mg/dLNormal0.0 - 1.1 mg/dLFTMC RemisolBilirubin.direct [Mass/Vol]0.2 mg/dLNormal0.1 - 0.4 mg/dLFTMC RemisolBilirubin.indirect [Mass or moles/Vol]0.8 mg/dLNormal0.1 - 0.9 mg/dLFTMC RemisolCalcium [Mass/Vol]8.9 mg/dLNormal8.9 - 11.1 mg/dLFTMC RemisolChloride [Moles/Vol]103 mmol/EGlajqd060 - 111 mmol/LFTMC RemisolCO2 [Moles/Vol]21 mmol/L Aujkko24 - 31 mmol/LFTMC RemisolCreatinine [Mass/Vol]0.5 mg/dLNormal0.5 - 1.3 mg/dLFTMC RemisolGFR/1.73 sq M.predicted among non-blacks MDRD (S/P/Bld) [Vol rate/Area]133 mL/min/1.73 z1Usoeqx>=59mL/min/1.73 m2FT[facility] Chem SComment on above: Interpretive Data: Chronic kidney disease could be indicated at eGFR's of less than 60 mL/min/1.73m2. Kidney failure is indicated at less than 15 mL/min/1.73m2.Globulin (S) [Mass/Vol]3.5 g/dLNormal1.4 - 4.0 gm/dLFTMC Remisol Glucose [Mass/Vol]119 mg/aQLlreem84 - 199 mg/dLH[facility]CRE[facility] RemisolComment on above: Interpretive Data: If this glucose result represents a fasting glucose, interpretation should referto the following reference range: 55-99 mg/dLHCG.beta subunit As44665 m[IU]/mLHigh1 - 3 mIU/mLHILLCREST [facility] RemisolComment on above: Interpretive Data: GESTATIONAL AGE HCG RANGE (mIU/mL) NON- <1-3 0.2-1 WEEKS 5-50 1-2 WEEKS 50-500 2-3 WEEKS 100-5,000 3-4 WEEKS 500-10,000 4-5 WEEKS 1,000-50,000 5-6 WEEKS 10,000-100,000 6-8 WEEKS 15,000-200,000 8-12 WEEKS 10,000-100,000Lipase [Catalytic activity/Vol]79 U/LHigh13 - 58 unit/L [facility] RemisolPotassium [Moles/Vol]3.2 mmol/LLow3.5 - 5.3 mmol/LFTMC Remisol Protein [Mass/Vol]7.6 g/dLNormal6.0 - 7.8 gm/dLHILLCREST [facility] RemisolSodium [Moles/Vol]135 mmol/FCqsgft412 - 145 mmol/LFTMC RemisolUrea nitrogen [Mass/Vol]10 mg/dLNormal5 - 21 mg/dLMC RemisolUrea nitrogen/Creatinine [Mass ratio]20 mg/dkBlmvbw53 - 20[facility] RemisolCOAGULATIONOrdered By: Shahana Wang on 03-70-7337aJRR Coag (PPP) [Time]29.4 fEjdbwq10.1 - 36.5 second(s)[facility] Auto CoagComment on above: Interpretive Data: Parameter 15 days - 4 weeks 1 - [...] coagulation reagent and instrumentation as [facility]. Currently there are no coagulation studies available worldwide for children to 14 days, andno normal ranges. Heparin therapeutic range (represented by Anti-Factor Xa activity of 0.2 - 0.4 U/mL) corresponds to PTT of 56.6 - 109.0 sec.INR Coag (PPP) [Relative time]1.1 {INR}Invalid Interpretation CodeHILLCREST HOSPITAL [facility] Auto CoagComment on above:Interpretive Data: INR results are specifically intended to assess patients stabilized on long-term Anticoagulation therapy suggested INR s Less Intensive Anticoagulation 2.0 3.0 Conventional Range 3.0 4.5PT Coag (PPP) [Time]12.1 sNormal9.4 - 12.5 second(s) [facility] Auto CoagComment on above:Interpretive Data: 15 days - 4 weeks 1 - [...] coagulation reagent and instrumentation as [facility]. Currently there are no coagulation studies available worldwide for children to 14 days, andno normal ranges.Consent for Treatmenton [id number] for Treatment [id number] Bay Park HospitalDischarge Instructionson 05-37-8520Nlouvvord Instructions [id number] Health [facility] Township Clinical Summaryon [id number] Clinical Summary [address] [address] ED Clinical Summary Person Information Name: [facility] Age: 27 Years : 1995 Sex: Female Language: Australian PCP: NONE, XXXX Marital Status: Single Visit [...] 01/02/2023 13:45:55 01/02/2023 13:45:55 01/02/2023 13:45:55 ADDRESS: [address] [place] [address] [place] [id number] PHYS DOC NOTES: MEDICAL INFORMATION: Prescriptions Given: New Medications [id number], [address], [place] [id number], [phone] dicyclomine (Bentyl 10 mg Cap) 2 Capsules [...] Pain, Adult Follow up: With: Address: When: Clarke REBOLLEDO [facility], [address] [place] [address] [place], [place] [id number] Business (1) In 3 days 01/05/2023 Comments: Make sure to follow-up with Dr. Rebolledo for your . Follow-up with Dr. Cuellar for the belly pain. Return to the emergency room if the abdominal pain recurs, vomiting recurs, vaginal bleedingor any new symptoms. With: Address: When: Patricia Murri[place] In 3 days 01/05/2023 DIAGNOSIS: 1:Abdominal pain; 2:Vomiting and diarrhea; 3:Intrauterine ; Diarrhea, unspecifiedNormalFisher Brain Medical CenterED Note-Physicianon [id number] Note-PhysicianBasic Information Time Seen: Amado Rodriguez M.D. 01/02/2023 [...] vaginal discharge. The patient denies any other associatedsymptoms. Review of Systems Additional ROS info: Except [...] and Complexity of Problems Differential Diagnosis: [] [facility] Data External documents reviewed: [] [...] patient home follow-up with her primary care andher OB. She is instructed to return to [...] QID, # 20 cap(s), Refills(s) 0, Pharmacy: [id number], 160.1, cm, 01/02/23 9:00:00 EST, Height/Length Dosing, 58.8, kg, 01/02/23 9:00:00 EST, Weight Dosing famotidine, 20 mg = 2 mL, Soln-IV, IV Push, Once, Stop date 01/02/23 10:16:00 EST, STAT, Start date01/02/23 10:16:00 EST, 01/02/23 10:16:00 EST nalbuphine, 5 [...] PRN Nausea/Vomiting, # 12 tab(s), Refills(s) 0, Pharmacy:[facility]/pharmacy #[id number], 160.1, cm, 01/02/23 9:00:00 EST, Height/Length Dosing, 58.8, kg, 01/02/23 9:00:00 EST, Weight Dosing Sodium Chloride 0.9% intravenous solution, 1,000 mL, Soln-IV, IV, Once, Stop date 01/02/23 9:08:00 EST, STAT, Start date 01/02/23 9:08:00 E (more content not included)...[facility] Medical CenterComment on above:Result Comment: Electronically Signed By: Amado Rodriguez M.D.\.anita\Date and Time Signed: 01/03/2316:52 KAILYN Patient Education Noteon [id number] Patient Education Note Gastroenterology Nausea and Vomiting, Adult Nausea is the feeling that you have an upset stomach or that you are about to vomit. As nausea getsworse, it can lead to vomiting. Vomiting is when stomach contents forcefully come out of your mouthas a result of nausea. Vomiting can make [...] added (diluted fruit juice). ? Eat bland, sdhs-ww-uaetqs foods in small amounts as you are able. These foods include bananas, applesauce, rice, lean meats, toast, and crackers. ? Avoid fluids that contain a lot of sugar or caffeine, such as energy drinks, sports drinks, and soda. ? Avoid alcohol. ? Avoid spicy or fatty foods. General instructions ? Take duya-rwi-xtpuinm and prescription medicines only as told by your health care provider. ? Drink enough fluid to keep your urine pale yellow. ? Wash your hands often using soap and water for at least 20 seconds. If soap and water are not available, use hand signal maintainer. ? Make sure that everyone in your [...] and drinking to prevent dehydration. ? Take fszf-quy-tsyiyvd and prescription medicines only as told by [...] provider. Document Revised: 08/16/2021 Document Reviewed: 08/16/2021 [employer] Patient Education ? 2022 [employer]. Abdominal Pain, Adult Pain in the abdomen [...] these instructions at home: Medicines ? Take vjsw-qnq-ocshowg and prescription medicines only as told by your health care provider. ? Do not take a laxative unless told by your health care provider. General instructions ? Watch your condition for any changes. ? Drink enough fluid to keep your urine pale yellow. ? Keep all follow-up visits as told by your h (more content not included)... [facility] Patient Summaryon [id number] Patient Summary [place] [id number] Patient Discharge Instructions Person Information Name: RUTH GROSSMAN Age: 27 Years Arrival Date: 01/02/2023 08:53:06 Discharge Diagnosis: 1:Abdominal pain; 2:Vomiting and diarrhea; 3:Intrauterine ; Diarrhea,unspecified Primary Care Physician: NONE, XXXX Provider Information Primary Provider: Amado Rodriguez M.D. Advanced Cream Cheese Maker:None The exam and treatment you received in the Emergency Department were for an urgent problem and are not intended as complete care. It is important that you follow up with a doctor, nurse practitioner,or physician?s study assistant for ongoing care. If your symptoms become worse or you do not improve as expected and you are unable to reach your usual health care provider, you should return to the Emergency Department. We are available 24 hours a day. RUTH GROSSMAN has been given the following list of patient education materials, prescriptions and follow-up instructions: Follow-up Instructions: With: Address: When: Clarke REBOLLEDO [facility], [address] [place] [address] Darron Sexton [place], [place] [id number] [facility] () In 3 days 01/05/2023 Comments: Make sure to follow-up with Dr. Rebolledo for your . Follow-up with Dr. Cuellar for the belly pain. Return to the emergency room if the abdominal pain recurs, vomiting recurs, vaginal bleedingor any new symptoms. With: Address: When: Patricia [...] opioids can be used to help relieve rxkgnzil-bg-mllctn pain and are often prescribed following a [...] and have fewer risks and side effects. Optionsmay include: ? Pain relievers such as acetaminophen, [...] opioids: Find your community (more content not included)...[facility] Medical CenterHEMATOLOGYOrdered By: SYSTEM SYSTEM on 53-00-9023Mdadkjpfn/100 WBC (Bld)0.2 %Normal0.0 - 2.0 %[facility] HemeAutoSSBasophils/Leukocytes Auto (Bld) [Pure # fraction]0.0 E9/LNormal0.0 - 0.2 E9/LFTMC HemeAutoSSEosinophils/100 WBC (Bld)0.1 %Normal0.0 - 8.0 %[facility] HemeAutoSSEosinophils/Leukocytes Auto (Bld) [Pure # fraction]0.0 E9/LNormal0.0 - 0.5 E9/LFTMC HemeAutoSSLymphocytes/100 WBC (Bld)8.0 %Low14.0 - 50.0 %[facility] HemeAutoSSLymphocytes/Leukocytes Auto (Bld) [Pure # fraction]1.1 E9/LNormal1.0 - 4.0 E9/LFTMC HemeAutoSSMonocytes/100 WBC (Bld)2.9 %Low4.0 - 14.0 %[facility] HemeAutoSSMonocytes/Leukocytes Auto (Bld) [Pure # fraction]0.4 E9/LNormal0.2 - 1.0 E9/LFTMC HemeAutoSSNeutrophils/100 WBC (Bld)88.8 %High36.0 - 75.0 %[facility] HemeAutoSSNeutrophils/Leukocytes Auto (Bld) [Pure # fraction]12.0 E9/LHigh2.0 - 7.5 E9/LFTMC HemeAutoSSHEMATOLOGYOrdered By: Porsha Recinos on 01-02-2023 Erythrocyte distribution width (RBC) [Ratio]12.3 %Ruymop66.9 - 14.2 %[facility] HemeAutoSSHematocrit (Bld) [Volume fraction]36.5 %Ylccpg51.0 - 46.0 %[facility] HemeAutoSSHemoglobin (Bld) [Mass/Vol]12.4 g/vYEetfrc80.0 - 16.0 gm/dLFTMC HemeAutoSSMCH (RBC) [Entitic mass]30.1 qpLktlek37.0 - 34.0 pgFTMC HemeAutoSSMCHC (RBC) [Mass/Vol]33.9 g/kEFrhcqz37.4 - 36.0 gm/dLFTMC HemeAutoSSMCV (RBC) [Entitic vol]88.8 fRGftdjg98.0 - 100.0 [facility] HemeAutoSSPlatelet mean volume (Bld) [Entitic vol]7.4 fLNormal6.4 - 10.8 [facility] HemeAutoSSPlatelets (Bld) [#/Vol]283.0 E9/BCmarwu624.0 - 500.0 /[facility] HemeAutoSSRBC (Bld) [#/Vol]4.1 E12/LLow4.3 - 5.9 E12/[facility] HemeAutoSSWBC corrected for nucl RBC Auto (Bld) [#/Vol]13.5 E9/LHigh4.0 - 11.0 /[facility] HemeAutoSSHep Func Panelon 01-02-2023 Albumin [Mass/Vol]4.1 g/dLNormal3.3-5.0[facility] SystemComment on above:Performed By: #### 6159226, 8657484, 7535817, 7288394, 39444483, 7217442, 54629039 #### [facility] [address], [place] [address]Vvpxvgl/Globulin (S) [Mass conc ratio]1.5Ixujey9.1-2.2FOhioHealth O'Bleness HospitalComment on above:Performed By: #### 9935331, 9504261, 6510830, 6385730, 36480900, 2593746, 78413711 #### [facility] [address], [place] [address]TSG [Catalytic activity/Vol]57 Int._Unit/GHzfvyd25-13KisnvcBlanchard Valley Health SystemComment on above:Performed By: #### 1516947, 1859847, 2707563, 6756857, 64453445, 2858497, 98139099 #### [facility] [address], [place] [address]KYV No additional P-5'-P [Catalytic activity/Vol]13 Int._Unit/L Normal6-46[facility] SystemComment on above:Performed By: #### 9525419, 5347069, 3039429, 7973463, 19828838, 6788737, 56323553 #### [facility] [address] [place] [address]BEO [Catalytic activity/Vol]26 Int._Unit/LNormal5-43[facility] SystemComment on above:Performed By: #### 2500754, 7006012, 1934021, 3920696, 76338312, 6368890, 52977517 #### [facility] [address], [place] [address]Wbabshjmo [Mass/Vol]1.0 mg/dLNormal0.0-1.1FOhioHealth O'Bleness HospitalComment on above:Performed By: #### 6836845, 2724045, 2258524, 3788839, 73368118, 0092200, 16012270 #### [facility] [address] [place] [address]Wkwlwczhl.direct [Mass/Vol]0.2 mg/dLNormal0.1-0.4FOhioHealth O'Bleness HospitalComment on above:Performed By: #### 4087047, 3590672, 2229465, 2468852, 18850658, 0533950, 76146244 #### [facility] [address] [place] [address]Bywraobed.indirect [Mass or moles/Vol]0.8 mg/dLNormal0.1-0.9 [facility] SystemComment on above:Performed By: #### 9980671, 8168876, 4076389, 4397670, 30083245, 7766036, 49332907 #### [facility] [address] [place] [address]Bjabbmae (S) [Mass/Vol]3.5 g/dLNormal1.4-4.0[facility] SystemComment on above:Performed By: #### 2877843, 2434766, 6471178, 4113215, 85934365, 2012955, 93568664 #### [facility] [address] [place] [address] [place] [address]Yxvdexf [Mass/Vol]7.6 g/dLNormal6.0-7.8[facility] SystemComment on above:Performed By: #### 1191234, 1995388, 9733771, 1022158, 24832335, 6536472, 19058131 #### [facility]ackery [facility] [address], [place] [address]Ddyuqd Levelon 03-57-5003Csmpgg [Catalytic activity/Vol]79 U/L Oyor38-79MddtrcBlanchard Valley Health SystemComment on above:Performed By: #### 8189588, 5616487, 6173929, 3150166, 13028345, 1599516, 43313633 #### [facility] [address], [place] [address]IE & PTTon 73-88-7652zLKD Coag (PPP) [Time]29.4 second(s)Normal 25.1-36.5FOhioHealth O'Bleness HospitalComment on above:Result Comment: Parameter 15 days - 4 weeks 1 - [...] coagulation reagent and instrumentation as [facility]. Currently there are no coagulation studies available worldwide for children to 14 days, andno normal ranges. Heparin therapeutic range (represented by Anti-Factor Xa activity of 0.2 - 0.4 U/mL) corresponds to PTT of 56.6 - 109.0 sec.Performed By: #### 0978352, 3799157, 4740980, 9172424, 95528703, 5851265, 38705205 #### [facility]ackery [facility] [address], [place] [address]YCB Coag (PPP) [Relative time]1.1 {INR}Invalid Interpretation CodeBlanchard Valley Health SystemComment on above:Result Comment: INR results are specifically intended to assess patients stabilized on long-term Anticoagulation therapy suggested INR?s ?Less Intensive Anticoagulation? 2.0 ? 3.0 Conventional Range 3.0 ? 4.5Performed By: #### 3989353, 6639529, 8736442, 1387986, 60353225, 2133061, 51996621 #### [facility] [address], [place] [address]UI Coag (PPP) [Time]12.1 second(s)Normal9.4-12.5Fisher [facility] Orthopaedic InstituteComment on above:Result Comment: 15 days - 4 weeks 1 - [...] coagulation reagent and instrumentation as [facility]. Currently there are no coagulation studies available worldwide for children to 14 days, andno normal ranges.Performed By: #### 1449687, 2807435, 9013711, 4163590, 91025445, 1174048, 59864766 #### Vizcarra [facility] [address], [place] [address]VK With Cult Reflexon 25-17-9252Nghbfmlf LM Ql (Urine sed)TRACE NormalTraceBlanchard Valley Health SystemComment on above:Performed By: #### [id number] #### [facility]ackery [facility] [address], [place] [address]Ekqhaxeql Ql (U)NegativeNormalNegativeBlanchard Valley Health SystemComment on above:Performed By: #### [id number] #### [facility]carra [facility] [address], [place] [address]Zqrhpfx (U)SL CLOUDYAbnormalClearFOhioHealth O'Bleness Hospital Comment on above:Performed By: #### [id number] #### [facility] [address], [place] [address]Cejjq (U)YELLOWNormalYellowBlanchard Valley Health SystemComment on above:Performed By: #### [id number] #### [facility] [address], [place] [address]Kiejzatwro cells.squamous LM.HPF (Urine sed) [#/Area]9-10Normal 0-2FOhioHealth O'Bleness HospitalComment on above:Performed By: #### [id number] #### [facility] [address], [place] [address]Pndtfxd Test strip (U) [Mass/Vol]NegativeNormalNegativeBlanchard Valley Health SystemComment on above:Performed By: #### [id number] #### [facility] [address], [place] [address]Kilxgvqcks Ql (U)NegativeNormalNegativeBlanchard Valley Health SystemComment on above:Performed By: #### [id number] #### [facility] [address], [place] [address]Vtvpvsb (U) [Mass/Vol]2+AbnormalNegativeBlanchard Valley Health SystemComment on above:Performed By: #### [id number] #### [facility] [address], [place] [address]Wrsacda.plasma/[place].RBC (Bld) [Mass ratio]1-0Qqovoi1-3RnyyghOhioHealth O'Bleness HospitalComment on above:Performed By: #### [id number] #### [facility] [address], [place] [address]Ievra Ql (Urine sed)2+NormalBlanchard Valley Health SystemComment on above:Performed By: #### [id number] #### [facility] [address], [place] [address]Vupgxao Ql (U)NegativeNormalNegSelect Medical OhioHealth Rehabilitation Hospital Comment on above:Performed By: #### [id number] #### Zackery [facility] [address] [place] [address]oG (U)8.5 [pH]Invalid Interpretation Code5.0-9.0[facility] SystemComment on above:Performed By: #### [id number] #### [facility]izcarra [facility] [address] [place] [address]Uuoxpgo (U) [Mass/Vol]NegativeNormalNegativeBlanchard Valley Health SystemComment on above:Performed By: #### [id number] #### [facility] [address] [place] [address]Ivumaayz gravity (U) [Rel density]1.015Invalid Interpretation Code1.005-1.030[facility] SystemComment on above:Performed By: #### [id number] #### [facility] [address] [place] [address]Onyhmhezpkt LM Ql (Urine sed)PresentBarney Children's Medical CenterComment on above:Performed By: #### [id number] #### [facility] [address] [place] [address]Eibm of Urine collection methodClean CatchBarney Children's Medical CenterComment on above:Performed By: #### [id number] #### [facility] [address] [place] [address]Grmmkezjwafq Qn (U)0.2 {Hima'U}/dLNormal0.0-1.0[facility] SystemComment on above:Performed By: #### [id number] #### [facility] [address] [place] [address]MXA Auto Ql (U)NegativeNormalNegSelect Medical OhioHealth Rehabilitation HospitalComment on above:Performed By: #### [id number] #### [facility] [address] [place] [address]EUN LM.HPF (Urine sed) [#/Area]9-8Wpzylf2-4Hvbjfj [facility] Orthopaedic InstituteComment on above:Performed By: #### [id number] #### Zackery [facility] [address] [place] [address]EFWCRHPUWHVydsuyi By: Shahana Wang on 94-86-8702Xbqsjtbf LM Ql (Urine sed)Trace /HPFNormalTrace/HPFFTMC UA Auto SSBilirubin Ql (U)Negative (01/02/23 10:40 AM)NormalNegativeFT UA Auto SSClarity (U)Slightly Cloudy *ABN* (01/02/23 10:40 AM)Invalid Interpretation CodeClearFTMC UA Auto SSColor (U) Yellow (01/02/23 10:40 AM)NormalYellowFT UA Auto SSEpithelial cells.squamous LM.HPF (Urine sed) [#/Area]9-10 /HPFNormal0-2/HPFFTMC UA Auto SSGlucose Test strip (U) [Mass/Vol]Negative (01/02/23 10:40 AM)NormalNegativeFT UA Auto SSHemoglobin Ql (U)Negative (01/02/23 10:40 AM)NormalNegativeH[facility] UA Auto SSKetones (U) [Mass/Vol]2+ *ABN* (01/02/23 10:40 AM)Invalid Interpretation CodeNegativeFTMC UA Auto SS [place].plasma/[place].RBC (Bld) [Mass ratio]0-3 /HPFNormal0-3/HPFFTMC UA Auto SSMucus Ql (Urine sed)2+ (01/02/23 10:40 AM)NormalFT UA Auto SSNitrite Ql (U)Negative (01/02/23 10:40 AM)NormalNegativeH[facility]CREST [facility] UA Auto SSpH (U)8.5 *NA* (01/02/23 10:40 AM)Invalid Interpretation Code5.0 - 9.0FT UA Auto SSProtein (U) [Mass/Vol]Negative (01/02/23 10:40 AM)NormalNegativeHILLCREST [facility] UA Auto SSSpecific gravity (U) [Rel density]1.015 *NA* (01/02/23 10:40 AM)Invalid Interpretation Code1.005 - 1.030[facility] UA Auto SS S[place] LM Ql (Urine sed)Present (01/02/23 10:40 AM)NormalHILLCREST HOSPITAL [facility] UA Auto SSUA Spec DescClean Catch (01/02/23 10:40 AM)[facility] Auto SSUrobilinogen Qn (U)0.1631383 {Hima'U}/dLNormal0.0 - 1.0 EU/dLHILLCREST [facility] Auto SSWBC Auto Ql (U)Negative (01/02/23 10:40 AM)NormalNegativeHILLCREST [facility] Auto SSWBC LM.HPF (Urine sed) [#/Area] 0-5 /HPFNormal0-5/HPFHILLCREST H[facility] Auto SSUS Gallbladderon [id number] Gallbladder Exam Date/Time: 01/02/2023 11:36 EST Reason [...] Lozano MD Transcribed by: JUAN FRANCISCO Technologist: NoelleSosa [facility] InstituteUS 1st Trimesteron [id number] 1st TrimesterExam Date/Time: 01/02/2023 11:36 EST Reason for Exam: [...] corresponding gestational age +/- 1 week are: [place] Rump Length: 0.5 cm Composite Ultrasound Age: [...] 11/20/22 Regular History 3 Para 2 SAB 1NMar[facility] HospitalUS Transvaginalon [id number] TransvaginalExam Date/Time: 01/02/2023 11:37 EST Reason for Exam: pain Report Refer to concurrent ultrasound first trimester dictation. Ordering Provider: Amado Rodriguez FINAL REPORT Dictated: 01/02/2023 11:48 am Jos Lozano MD Signed (Electronic Signature): 01/02/2023 11:48 am Signed by: Jos Lozano MD Transcribed by: JUAN FRANCISCO Technologist: MerlinBlanchard Valley Health SystemeGFRon [id number]/1.73 sq M.predicted among non-blacks MDRD (S/P/Bld) [Vol rate/Area]133 mL/min/1.73 f2Iyctqd>=59Blanchard Valley Health SystemComment on above:Order Comment: Order added by Discern Expert.Result Comment: Chronic kidney disease could be indicated at eGFR's of less than 60 mL/min/1.73m2. K idney failure is indicated at less than 15 mL/min/1.73m2.Performed By: #### [id number] #### [employer] [facility] [address], [place] [address]PHUWFRPBROWowuxzt By: Allegra Jon on 61-18-8318Vewxbxqbe Ql (U)Negative (06/21/22 1:12 AM)NormalNegativeH[facility] Auto SSClarity (U)Clear (06/21/22 1:12 AM)NormalClearFTMC UA Auto SSColor (U)STRAWInvalid Interpretation CodeFT UA Auto SSEpithelial cells.squamous LM.HPF (Urine sed) [#/Area]0-2 /HPF Normal0-2/HPFFTMC UA Auto SSGlucose Test strip (U) [Mass/Vol]Negative (06/21/22 1:12 AM)NormalNegativeH[facility]CREST [facility] Auto SSHemoglobin Ql (U)Trace *ABN* (06/21/22 1:12 AM)Invalid Interpretation CodeNegativeFT UA Auto SSKetones (U) [Mass/Vol]Trace *NA* (06/21/22 1:12 AM)Invalid Interpretation CodeNegativeHILLCREST [facility] Auto SS [place].plasma/[place].RBC (Bld) [Mass ratio]0-3 /HPFNormal0-3/HPFFTMC UA Auto SSNitrite Ql (U)Negative (06/21/22 1:12 AM)NormalNegativeHILLCREST [facility] Auto SSpH (U)8.0 *NA* (06/21/22 1:12 AM)Invalid Interpretation Code5.0 - 9.0[facility] Auto SSProtein (U) [Mass/Vol]Negative (06/21/22 1:12 AM)NormalNegativeHILLCREST [facility] Auto SSSpecific gravity (U) [Rel density] 1.010 *NA* (06/21/22 1:12 AM)Invalid Interpretation Code1.005 - 1.030[facility] Auto SSUA Spec DescClean Catch (06/21/22 1:12 AM)NormalH[facility] Auto SSUrobilinogen Qn (U)0.3328046 {Hima'U}/dLNormal0.0 - 1.0 EU/dLHILLCREST [facility] Auto SSWBC Auto Ql (U)Negative (06/21/22 1:12 AM)NormalNegativeH[facility]CREST [facility] Auto SSWBC LM.HPF (Urine sed) [#/Area]0-5 /HPFNormal0-5/HPFHILLCREST HOSP[facility] Auto SSCHEMISTRYOrdered By: SYSTEM SYSTEM on 33-08-1753Yhrgbpl [Mass/Vol]4.1 g/dLNormal3.3 - 5.0 gm/dLFTMC Remisol Albumin/Globulin [Mass ratio]1.1 {ratio}Normal1.1 - 2.2[facility] RemisolALP [Catalytic activity/Vol]86 [iU]/lBfqrhg65 - 98 Int._Unit/LFTMC RemisolALT No additional P-5'-P [Catalytic activity/Vol]16 [iU]/dNormal6 - 46 Int._Unit/LFTMC RemisolAnion gap [Moles/Vol]12 mmol/LNormal6 - 16 mEq/LFTMC RemisolAST [Catalytic activity/Vol]22 [iU]/dNormal5 - 43 Int._Unit/LFTMC RemisolBilirubin [Mass/Vol]0.5 mg/dLNormal0.0 - 1.1 mg/dLFTMC RemisolBilirubin.direct [Mass/Vol] mg/dLNormal0.1 - 0.4 mg/dLFTMC RemisolBilirubin.indirect [Mass or moles/Vol] Unable to Calculate mg/dLInvalid Interpretation Code0.1 - 0.9 mg/dLFTMC Remisol Calcium [Mass/Vol]8.8 mg/dLLow8.9 - 11.1 mg/dLFTMC RemisolChloride [Moles/Vol] 105 mmol/SCgxcqy969 - 111 mmol/LFTMC RemisolCO2 [Moles/Vol]23 mmol/FHtjkjp84 - 31 mmol/LFTMC RemisolCreatinine [Mass/Vol]0.7 mg/dLNormal0.5 - 1.3 mg/dLFTMC RemisolGFR/1.73 sq M.predicted among non-blacks MDRD (S/P/Bld) [Vol rate/Area] 123 mL/min/1.73 u4Rgstsz>=59mL/min/1.73 m2FTMC Chem SGlobulin (S) [Mass/Vol]3.6 g/dLNormal1.4 - 4.0 gm/dLFTMC RemisolGlucose [Mass/Vol]104 mg/gHFrliyk26 - 199 mg/dLFTMC RemisolLipase [Catalytic activity/Vol]32 U/WRfktjy92 - 58 unit/LFTMC RemisolPotassium [Moles/Vol]3.4 mmol/LLow3.5 - 5.3 mmol/LFTMC RemisolProtein [Mass/Vol]7.7 g/dLNormal6.0 - 7.8 gm/dLFTMC RemisolSodium [Moles/Vol]137 mmol/L Nsxtec016 - 145 mmol/LFTMC RemisolUrea nitrogen [Mass/Vol]12 mg/dLNormal5 - 21 mg/dLFTMC RemisolUrea nitrogen/Creatinine [Mass ratio]17 mg/ccFozuvo77 - 20FT[facility] RemisolHEMATOLOGYOrdered By: SYSTEM SYSTEM on 66-51-5706Mmemmsldo/100 WBC (Bld) 0.7 %Normal0.0 - 2.0 %[facility] HemeAutoSSBasophils/Leukocytes Auto (Bld) [Pure # fraction]0.2 E9/LNormal0.0 - 0.2 E9/LFTMC HemeAutoSSEosinophils/100 WBC (Bld)0.9 %Normal0.0 - 8.0 %[facility] HemeAutoSSEosinophils/Leukocytes Auto (Bld) [Pure # fraction]0.2 E9/LNormal0.0 - 0.5 E9/LFTMC HemeAutoSSLymphocytes/100 WBC (Bld) 19.5 %Zgajah19.0 - 50.0 %[facility] HemeAutoSSLymphocytes/Leukocytes Auto (Bld) [Pure # fraction]4.2 E9/LHigh1.0 - 4.0 E9/LFTMC HemeAutoSSMonocytes/100 WBC (Bld)4.9 % Normal4.0 - 14.0 %[facility] HemeAutoSSMonocytes/Leukocytes Auto (Bld) [Pure # fraction]1.1 E9/LHigh0.2 - 1.0 E9/LFTMC HemeAutoSSNeutrophils/100 WBC (Bld)74.0 %Qzjiwr91.0 - 75.0 %[facility] HemeAutoSSNeutrophils/Leukocytes Auto (Bld) [Pure # fraction]15.9 E9/LHigh2.0 - 7.5 E9/LFTMC HemeAutoSSHEMATOLOGYOrdered By: Allegra Jon on 79-05-6475Xptrvknntqs distribution width (RBC) [Ratio]12.3 %Tekuag72.9 - 14.2 %[facility] HemeAutoSSHematocrit (Bld) [Volume fraction]41.0 %Jxdyxt09.0 - 46.0 %[facility] HemeAutoSSHemoglobin (Bld) [Mass/Vol]13.4 g/lEYibgtg80.0 - 16.0 gm/dL [facility] HemeAutoSSMCH (RBC) [Entitic mass]28.2 adNsfkpq91.0 - 34.0 pgFTMC HemeAutoSSMCHC (RBC) [Mass/Vol]32.7 g/bWAkhqir65.4 - 36.0 gm/dLFTMC HemeAutoSS MCV (RBC) [Entitic vol]86.3 wRYwjrab80.0 - 100.0 fLFTMC HemeAutoSSPlatelet mean volume (Bld) [Entitic vol]7.2 fLNormal6.4 - 10.8 fLFTMC HemeAutoSSPlatelets (Bld) [#/Vol]414.0 E9/IQeidjo861.0 - 500.0 E9/LFTMC HemeAutoSSRBC (Bld) [#/Vol] 4.8 E12/LNormal4.3 - 5.9 E12/LFTMC HemeAutoSSWBC corrected for nucl RBC Auto (Bld) [#/Vol]21.6 E9/LHigh4.0 - 11.0 E9/LFTMC HemeAutoSSComment on above:Result Comment: Slide reviewed by AD.SEROLOGYOrdered By: Allegra Jon on 06-20-2022 Beta hCG QlNegative (06/20/22 11:40 PM)[facility] SeroCANNABINOID (THC) CONFIRMATION, URINEon 06-00-8282GncfswpbvmjMjoxxyggIaobmewsDyu [facility] CenterComment on above: Performed By: #### THCCONF #### [facility] [address] [place] [address] Dr. Nannette Guzman THC GC/MS Bcuj856 ng/mLNormalCutoff=10The [facility] Medical CenterComment on above:Performed By: #### THCCONF #### [facility] [address] [place] [address] Dr. Nannette London AUTO DIFFon [id number] #0.1 103/ulNormal0.0-0.1City HospitalComment on above:Performed By: #### CBC #### [facility] [address] [place] [address] Dr. Nannette BakerBasophils/100 WBC (Bld)0.5 %Normal0.2-2.0[facility] Comment on above:Performed By: #### CBC #### [facility] [address] [place] [address] Dr. Nannette Figueroa #0.2 103/ulNormal0.0-0.7The [facility] CenterComment on above: Performed By: #### CBC #### [facility] [address] [place] [address] Dr. Nannette Moyaosinophils/100 WBC (Bld)1.2 %Normal0.9-7.0The [facility] Comment on above:Performed By: #### CBC #### [facility] [address] [place], [place] [id number] Dr. Nannette Moyarythrocyte distribution width (RBC) [Ratio]12.2 %Kotnqj61.0-15.0 [facility] Hospitalment on above:Performed By: #### CBC #### [facility] [address] [place] [address] Dr. Nannette BakerHematocrit (Bld) [Volume fraction]33.4 %Critically low36.0-48.0 The [facility] CenterComment on above:Performed By: #### CBC #### [facility] [address] [place] [address] Dr. Nannette BakerHemoglobin (Bld) [Mass/Vol]11.5 g/dLCritically low12.0-16.0[facility] Hospitalment on above:Performed By: #### CBC #### [facility] [address] [place] [address] Dr. Nannette Longoria #0.06 10e3/ulCritically high0.00-0.03The [facility] Comment on above:Performed By: #### CBC #### [facility] [address] [place] [address] Dr. Nannette Longoria %0.5 %Normal0.0-0.5The [facility] on above: Performed By: #### CBC #### [facility] [address] [place] [address] Dr. Nannette VannH #2.3 103/ulNormal1.2-3.8The [facility] Systemment on above:Performed By: #### CBC #### [facility] [address] [place] [address] Dr. Nannette Solorzanomphocytes/100 WBC (Bld)17.5 %Critically low20.5-60.0[facility] Hospitalment on above:Performed By: #### CBC #### [facility] [address] [place] [address] Dr. Nannette AshbyUAL DIFF REQNONormalThe [facility] Medical CenterComment on above: Performed By: #### CBC #### [facility] [address] [address] [address] Nannette Duenas (RBC) [Entitic mass]31.2 iqYmpmqf78.7-34.0The [facility] CenterComment on above:Performed By: #### CBC #### [facility] [address] [place] [address] Dr. Nannette Duenas (RBC) [Mass/Vol]34.4 g/pRFqvefb11.9-35.2The [facility] CenterComment on above:Performed By: #### CBC #### [facility] [address] [place] [address] Dr. Nannette Duenas (RBC) [Entitic vol]90.5 fCDfowgg38.0-99.0The [facility] CenterComment on above:Performed By: #### CBC #### [facility] [address] [place] [address] Dr. Nannette Carrillo #0.8 103/ulNormal0.3-0.8The [facility] CenterComment on above:Performed By: #### CBC #### [facility] [address] [place] [address] Dr. Nannette Bestocytes/100 WBC (Bld)6.0 %Normal1.7-12.0[facility] Comment on above:Performed By: #### CBC #### [facility] [address] [place] [address] Dr. Nannette Franz #9.7 103/ulCritically high1.4-6.5The [facility] Comment on above:Performed By: #### CBC #### [facility] [address] [place] [address] Dr. Nannette Travisutrophils/100 WBC (Bld)74.3 %Yecuuh54.0-75.0The [facility] CenterComment on above:Performed By: #### CBC #### [facility] [address] [place] [address] Dr. Nannette Campbelllet mean volume (Bld) [Entitic vol]9.4 fLCritically low 9.5-13.5The [facility] Medical CenterComment on above:Performed By: #### CBC #### [facility] [address] [address] [address] Nannette BakerPLT247 103/dlXgdzgu315-801Jgk [facility] CenterCommunson medical center on above: Performed By: #### CBC #### [facility] [address] [address] [address] Nannette BakerRBC3.69 106/ulCritically low4.20-5.40The [facility] Medical CenterComment on above:Performed By: #### CBC #### [facility] [address] [place] [address] Dr. Nannette BakerWBC13.0 103/ulCritically high4.0-11.0The [facility] on above:Performed By: #### CBC #### [facility] [address] [place] [address] Dr. Nannette London AUTO DIFFon [id number] #0.0 103/ulNormal0.0-0.1The [facility] CenterComment on above:Performed By: #### THCCONF #### [facility] [address] [place] [address] Dr. Nannette BakerBasophils/100 WBC (Bld)0.3 %Normal0.2-2.0The [facility] Comment on above:Performed By: #### THCCONF #### [facility] [address] [place] [address] Dr. Nannette Figueroa #0.1 103/ulNormal0.0-0.7The [facility] on above: Performed By: #### THCCONF #### [facility] [address] [place] [address] Dr. Nannette Moyaosinophils/100 WBC (Bld)1.2 %Normal0.9-7.0The [facility] Comment on above:Performed By: #### THCCONF #### [facility] [address] [place] [address] Dr. Nannette Moyarythrocyte distribution width (RBC) [Ratio]12.0 %Izbprw27.0-15.0 The [facility] Medical CenterComment on above:Performed By: #### THCCONF #### [facility] [address] [place] [address] Dr. Nannette BakerHematocrit (Bld) [Volume fraction]33.0 %Critically low36.0-48.0 The [facility] HospitalComment on above:Performed By: #### THCCONF #### [facility] [address] [place] [address] Dr. Nannette BakerHemoglobin (Bld) [Mass/Vol]11.1 g/dLCritically low12.0-16.0The [facility] CenterComment on above:Performed By: #### THCCONF #### [facility] [address] [place] [address] Dr. Nannette Longoria #0.05 10e3/ulCritically high0.00-0.03The [facility] Comment on above:Performed By: #### THCCONF #### [facility] [address] [place] [address] Dr. Nannette Longoria %0.5 %Normal0.0-0.5The [facility] Medical CenterComment on above: Performed By: #### THCCONF #### [facility] [address] [place] [address] Dr. Nannette Gregg #1.8 103/ulNormal1.2-3.8The [facility] Medical CenterComment on above:Performed By: #### THCCONF #### [facility] [address] [place] [address] Dr. Nannette Solorzanomphocytes/100 WBC (Bld)16.4 %Critically low20.5-60.0The [facility] CenterComment on above:Performed By: #### THCCONF #### [facility] [address] [place] [address] Dr. Nannette AshbyUAL DIFF REQNONormalThe [facility] Medical CenterComment on above: Performed By: #### THCCONF #### [facility] [address] [place] [address] Dr. Nannette Stone (RBC) [Entitic mass]30.7 lhPmtmvs70.7-34.0The [facility] CenterComment on above:Performed By: #### THCCONF #### [facility] [address] [address] [address] Nannette Duenas (RBC) [Mass/Vol]33.6 g/sSQymero85.9-35.2The [facility] CenterComment on above:Performed By: #### THCCONF #### [facility] [address] [place] [address] Dr. Nannette BakerATOK[facility] (RBC) [Entitic vol]91.4 iWBugzsb77.0-99.0The [facility] CenterComment on above:Performed By: #### THCCONF #### [facility] [address] [place] [address] Dr. Nannette Carrillo #0.6 103/ulNormal0.3-0.8The [facility] CenterComment on above:Performed By: #### THCCONF #### [facility] [address] [address] [address] Nannette Bestocytes/100 WBC (Bld)5.7 %Normal1.7-12.0The [facility] Comment on above:Performed By: #### THCCONF #### [facility] [address] [place] [address] Dr. Nannette Franz #8.4 103/ulCritically high1.4-6.5The [facility] Comment on above:Performed By: #### THCCONF #### [facility] [address] [place] [address] Dr. Nannette Travisutrophils/100 WBC (Bld)75.9 %Critically high43.0-75.0The [facility] CenterComment on above:Performed By: #### THCCONF #### [facility] [address] [place] [address] Dr. Nannette Campbelllet mean volume (Bld) [Entitic vol]9.4 fLCritically low 9.5-13.5The [facility] on above:Performed By: #### THCCONF #### [facility] [address] [address] [address] Nannette BakerPLT230 103/yzTdxskz618-467Tor [facility] on above: Performed By: #### THCCONF #### [facility] [address] [place] [address] Dr. Nannette BakerRBC3.61 106/ulCritically low4.20-5.40The [facility] CenterCommunson medical center on above:Performed By: #### THCCONF #### [facility] [address] [place] [address] Dr. Nannette BakerWBC11.1 103/ulCritically high4.0-11.0The [facility] on above:Performed By: #### THCCONF #### [facility] [address] [place] [address] Dr. Nannette Zuleta-19 PCR (CVDTBH)on 60-97-0619XTWV-CoV-2 (COVID-19) RNA CHARLENE+probe Ql (Unsp spec)Not detectedNormalNOT DETECTEDThe [facility] Comment on above:Result Comment: When diagnostic testing is negative, the [...] for this test is supported by the [place] of Health and Human Service's declaration that circumstances exist to justify the emergency use of in vitro diagnostics for the detection and/or diagnosis of the virus that causes COVID-19. This EUA will remain in effect for the duration of the COVID-19 declaration justifying emergency of IVDs, unless it is terminated or revoked by the FDA (after which the test may no longer be used).Performed By: #### CVDTBH #### [facility] [address] [place] [address] Dr. Nannette Peña SCREEN RAPID (URINE)on [id number]Y [facility] on above:Performed By: #### DRUGRPD #### [facility] [address] [place] [address] Dr. Nannette BakerBARNegativeBellevilleNEGUniversity Hospitals Health System on above: Performed By: #### DRUGRPD #### [facility] [address] [place] [address] Dr. Nannette BakerBUPNegativeNormalNEGMarymount HospitalCommunson medical center on above: Performed By: #### DRUGRPD #### [facility] [address] [place] [address] Dr. Nannette AnayaZONegativeBellevilleNEGMarymount HospitalCommunson medical center on above: Performed By: #### DRUGRPD #### [facility] [address] [place] [address] Dr. Nannette PurvisCNegativeBellevilleNEGMarymount HospitalCommunson medical center on above: Performed By: #### DRUGRPD #### [facility] [address] [place] [address] Dr. Nannette ArnoldMercy Health Willard HospitalCommunson medical center on above: Result Comment: AMP (Amphetamine): 500ng/mL, BAR (Barbituates): 200 ng/mL, BZO (Benzodiazepines): 150 ng/mL, BUP (Buprenorphine): 10 ng/mL, SORAIDA (Cocaine): 150 ng/mL, mAMP (Methamphetamine): 500 ng/mL, MTD (Methadone): 200 ng/mL, OPI (Opiates): 100 ng/mL, OXY (Oxycodone): 100 ng/mL, PCP (Phencyclidine): 25 ng/mL, PPX (Propoxyphene): 300 ng/mL, THC (Cannabinoids): 50 ng/mL, TCA (Trycyclic Antidepressants): 300 ng/mLPerformed By: #### DRUGRPD #### [facility] [address] [place] [address] Dr. Yilan ChangDRUG CUT HEADERDRUG CLASS TEST SYSTEM CUT-OFF CONCENTRATIONS ARE FOLLOWS:NormalThe [facility]ja Medical CenterComment on above:Performed By: #### DRUGRPD #### [facility] [address] [address] [address] Nannette BakermAMPNegativeNormalNEGATIVECity HospitalComment on above: Performed By: #### DRUGRPD #### [facility] [address] [address] [address] Nannette BakerMTDNegativeNormalNEGATIVECity HospitalComment on above: Performed By: #### DRUGRPD #### [facility] [address] [address] [address] Nannette BakerOPINegativeNormalNEGATIVECity HospitalComment on above: Performed By: #### DRUGRPD #### [facility] [address] [place] [address] Dr. Nannette BakerOXYNegativeNormalNEGATIVECity HospitalComment on above: Performed By: #### DRUGRPD #### [facility] [address] [address] [address] Nannette BakerPCPNegativeNormalNEGATIVECity HospitalComment on above: Performed By: #### DRUGRPD #### [facility] [address] [place] [address] Dr. Nannette BakerPPXNegativeNormalNEGATIVECity HospitalComment on above: Performed By: #### DRUGRPD #### [facility] [address] [address] [address] Nannette BakerTCANegativeNormalNEGATIVECity HospitalComment on above: Performed By: #### DRUGRPD #### [facility] [address] [address] [address] Nannette BakerTHCPositiveAbnormalNEGATIVECity HospitalComment on above: Performed By: #### DRUGRPD #### [facility] [address] [address] [address] Nannette BakerTYPE AND SCREENon 07-24-1695JGLI AND SCREENNegativeNormalThe Jeffrey HospitalComment on above:Performed By: #### TNS #### [facility] [address] [place] [address] Dr. Nannette BakerGROUP B STREP CULTUREon 10-26-2021. agalactiae Ag Ql (Unsp spec) Isolate 1 [...] Vancomycin 0.5 S F Tetracycline >=16 R FNormalCity HospitalComment on above:Performed By: #### CVDTBH #### [facility] [address] [place] [address] Dr. Nannette Smith PREG GROWTHon [id number] PREG GROWTHEXAMINATION: US PREG GROWTH HISTORY: Large for gestation [...] Electronically authenticated by: SAMIR SHANNON Date: 2021-10-22 16:21NoK[facility] PREG GROWTHon [id number] PREG GROWTHEXAMINATION: US PREG GROWTH HISTORY: Large for gestation [...] Electronically authenticated by: SAMIR SHANNON Date: 2021-09-25 16:34NormalThMansfield HospitalCBC AUTO DIFFon [id number] #0.0 103/ulNormal0.0-0.1The [facility] Medical CenterComment on above:Performed By: #### CVDTBH #### [facility] [address] [address] [address] Nannette BakerBasophils/100 WBC (Bld)0.3 %Normal0.2-2.0The [facility] Comment on above:Performed By: #### CVDTBH #### [facility] [address] [address] [address] Nannette Figueroa #0.1 103/ulNormal0.0-0.7The [facility] Medical CenterComment on above: Performed By: #### CVDTBH #### [facility] [address] [address] [address] Nannette Moyaosinophils/100 WBC (Bld)0.8 %Critically low0.9-7.0The [facility]als [facility]huja Medical CenterComment on above:Performed By: #### CVDTBH #### [facility] [address] [address] [address] Nannette Moyarythrocyte distribution width (RBC) [Ratio]11.9 %Wxixdg73.0-15.0 City HospitalComment on above:Performed By: #### CVDTBH #### [facility] [address] [place] [address] Dr. Nannette BakerHematocrit (Bld) [Volume fraction]33.3 %Critically low36.0-48.0 The [facility] CenterComment on above:Performed By: #### CVDTBH #### [facility] [address] [place] [address] Dr. Nannette BakerHemoglobin (Bld) [Mass/Vol]11.3 g/dLCritically low12.0-16.0The [facility] CenterComment on above:Performed By: #### CVDTBH #### [facility] [address] [place] [address] Dr. Nannette Longoria #0.07 10e3/ulCritically high0.00-0.03The [facility] Comment on above:Performed By: #### CVDTBH #### [facility] [address] [place] [address] Dr. Nannette Longoria %0.6 %Critically high0.0-0.5The [facility] CenterComment on above:Performed By: #### CVDTBH #### [facility] [address] [place] [address] Dr. Nannette Gregg #1.3 103/ulNormal1.2-3.8The [facility] CenterComment on above:Performed By: #### CVDTBH #### [facility] [address] [place] [address] Dr. Nannette Vannhocytes/100 WBC (Bld)10.8 %Critically low20.5-60.0The [facility] CenterComment on above:Performed By: #### CVDTBH #### [facility] [address] [place] [address] Dr. Nannette AshbyUAL DIFF REQNONormalThe [facility] Medical CenterComment on above: Performed By: #### CVDTBH #### [facility] [address] [place] [address] Dr. Nannette Stone (RBC) [Entitic mass]32.1 zmFulmdy37.7-34.0The [facility] CenterComment on above:Performed By: #### CVDTBH #### [facility] [address] [address] [address] Nannette Duenas (RBC) [Mass/Vol]33.9 g/zEEsqwef96.9-35.2The [facility] CenterComment on above:Performed By: #### CVDTBH #### [facility] [address] [place] [address] Dr. Nannette Duenas (RBC) [Entitic vol]94.6 vEFxitwb30.0-99.0The [facility] CenterComment on above:Performed By: #### CVDTBH #### [facility] [address] [place] [address] Dr. Nannette Carrillo #0.5 103/ulNormal0.3-0.8The [facility] CenterComment on above:Performed By: #### CVDTBH #### [facility] [address] [place] [address] Dr. Nannette Bestocytes/100 WBC (Bld)4.5 %Normal1.7-12.0The [facility] Comment on above:Performed By: #### CVDTBH #### [facility] [address] [place] [address] Dr. Nannette Franz #10.1 103/ulCritically high1.4-6.5The [facility] Comment on above:Performed By: #### CVDTBH #### [facility] [address] [place] [address] Dr. Nannette Travisutrophils/100 WBC (Bld)83.0 %Critically high43.0-75.0The [facility] CenterComment on above:Performed By: #### CVDTBH #### [facility] [address] [place] [address] Dr. Nannette Campbelllet mean volume (Bld) [Entitic vol]9.2 fLCritically low 9.5-13.5The Jeffrey HospitalComment on above:Performed By: #### CVDTBH #### [facility] [address] [place] [address] Dr. Nannette BakerPLT233 103/pjYrmwsf224-196Sgb [facility] CenterComment on above: Performed By: #### CVDTBH #### [facility] [address] [place] [address] Dr. Nannette BakerRBC3.52 106/ulCritically low4.20-5.40The [facility] HospitalComment on above:Performed By: #### CVDTBH #### [facility] [address] [place] [address] Dr. Nannette BakerWBC12.1 103/ulCritically high4.0-11.0The [facility] Medical CenterComment on above:Performed By: #### CVDTBH #### [facility] [address] [place] [address] Dr. Nannette BakerGLUCOSE - 1HRon 08-98-5202Psqioxn [Mass/Vol]104 mg/cOQjdfzc43-389 The [facility] CenterComment on above:Performed By: #### THCCONF #### [facility] [address] [place] [address] Dr. Nannette BakerCHLAMYDIA/GONOCOCCUS CHARLENE (SWAB/URINE/PAPon 01-24-4762Ykahfanlr trachomatis, NAANegativeNormalNegativeThe [facility] Medical CenterComment on above: Performed By: #### THCCONF #### [facility] [address] [place] [address] Dr. Nannette BakerNeisseria gonorrhoeae, NAANegativeNormalNegativeThe [facility] Medical CenterComment on above:Performed By: #### THCCONF #### [facility] [address] [place] [address] Dr. Nannette BakerVAGINITIS/VAGINOSIS DNA PROBEon [id number] speciesNegative NormalNegativeThe [facility]ja Medical CenterComment on above:Performed By: #### VAGINT #### [facility] [address] [place] [address] Dr. Nannette Ramos vaginalisPositiveAbnormalNegativeCity HospitalComment on above:Performed By: #### VAGINT #### [facility] [address] [address] [address] Nannette Simpson vaginalisNegativeBellevilleNegMercy Health Fairfield Hospital Comment on above:Performed By: #### VAGINT #### [facility] [address] [address] [address] Nannette Marina MATERNAL FOR SPINA BIFIDAon 25-15-7964BUX MoM1.32Adams County HospitalComment on above:Performed By: #### AFPMAT #### [facility] [address] [address] [address] Nannette Marina Value83.8 ng/mLNormalCity HospitalComment on above: Performed By: #### AFPMAT #### [facility] [address] [address] [address] Nannette Marina, Serum for Spina BifidaReportAdams County Hospital Comment on above:Performed By: #### AFPMAT #### [facility] [address] [address] [address] Nannette MercadoSelect Medical [facility] Clinic Rehabilitation Hospital, BeachwoodComment on above:Result Comment: Hailee Muñiz, Ph.D., [employer] Director . References: Available Upon Request. . Multiples Of Median Cutoffs For AFP Elevations Springer 2.5 Black 2.8 IDD 2.0 Twins 4.5 Abbreviation Definitions IDD - Insulin Dep Diabetes OSBR - Open Spina Bifida Risk . For further inquiries contact [facility] at [phone].Performed By: #### AFPMAT #### [facility] [address] [address] [address] Nannette Abreu Age Collection Date20.0 weeksAdams County Hospital Comment on above:Performed By: #### AFPMAT #### [facility] [address] [address] [address] Nannette Abreuat, Age Based onEK[facility]tering [facility] on above:Result Comment: 11/19/2021 Recalculations are not recommended when gestational dating by LMP and ultrasound are within 10 days.Performed By: #### AFPMAT #### [facility] [address] [place] [address] Dr. Nannette BakerInsulin Dep DiabetesWilson Memorial HospitalCommunson medical center on above:Performed By: #### AFPMAT #### [facility] [address] [address] [address] Nannette BakerInterpretationComHolzer Hospital on above: Result Comment: Interpretation: Screen Negative . This result is screen [...] Customer Services to discuss available options. The [employer] [place] [employer] recommends amniocentesis be offered to women age 35 and older.Performed By: #### AFPMAT #### [facility] [address] [place] [address] Dr. Nannette Smith Age at EDD24.5 [facility] CenterCommunson medical center on above:Performed By: #### AFPMAT #### [facility] [address] [place] [address] Dr. Nannette Dalton GestationWilson Memorial HospitalCommunson medical center on above: Performed By: #### AFPMAT #### [facility] [address] [place] [address] Dr. Nannette BakerOSBR Risk 1 [id number] County HospitalCommunson medical center on above: Performed By: #### AFPMAT #### [facility] [address] [place] [address] Dr. Nannette Gama.Ad[facility] HospitalCommunson medical center on above:Performed By: #### AFPMAT #### [facility] [address] [place] [address] Dr. Nannette AlbrechtceCaucasianNormalCity HospitalComment on above: Performed By: #### AFPMAT #### [facility] [address] [place] [address] Dr. Nannette BakerTest Results:NegativeNoRegency Hospital Cleveland EastComment on above: Performed By: #### AFPMAT #### [facility] [address] [place] [address] Dr. Nannette BakerUS PREG ANATOMY SINGLEon 66-43-1708IW PREG ANATOMY SINGLE EXAMINATION: US PREG ANATOMY SINGLE HISTORY: screening COMPARISON: No relevant [...] Electronically authenticated by: SAMIR SHANNON Date: 2021-07-02 12:33NoRegency Hospital Cleveland EastHE B SURFACE ANTIGEN SCREENon 25-02-4581HUtBm ScreenNegative NormalNegativeThe [facility] on above:Performed By: #### HBSANS #### [facility] [address] [place] [address] Dr. Nannette TorresTIS C VIRUS AB W/ REFLEX QUANTon [id number] AB<0.1Normal 0.0-0.9The [facility] on above:Performed By: #### THCCONF #### [facility] [address] [place] [address] Dr. Nannette BakerInterpretation:CommentNormalThe [facility] on above:Result Comment: Negative Not infected with HCV, unless recent infection is suspected or other evidence exists to indicate HCV infection.Performed By: #### THCCONF #### [facility] [address] [place] [address] Dr. Nannette BakerHIV 1 AND 2 WITH REFLEXon 08-51-1046DYY Screen 4th Generation wRfxNon-ReactiveNormalNon ReactiveThe [facility] on above:Result Comment: HIV Negative HIV-1/HIV-2 antibodies and HIV-1 p24 antigen were NOT detected. There is no laboratory evidence of HIV infection.Performed By: #### CVDTBH #### [facility] [address] [place] [address] Dr. Nannette BakerRPR QUANTon 22-50-6576Qnofz Plasma Reagin, QuantNon-Reactive NormalNonRea<1:1The [facility] on above:Performed By: #### CVDTBH #### [facility] [address] [place] [address] Dr. Nannette BakerRUBELLA AB IGGon 61-91-3172Nmzkedk Antibodies, IgG2.65 index NormalImmune >0.99The [facility] on above:Result Comment: Non- immune <0.90 Equivocal 0.90 - 0.99 Immune >0.99Performed By: #### RUBIGG #### [facility] [address] [place] [address] Dr. Nannette BakerCBC AUTO DIFFon 64-05-1217YZOY #0.1 103/ulNormal0.0-0.1The [facility] HospitalComment on above:Performed By: #### THCCONF #### [facility] [address] [place] [address] Dr. Nannette BakerBasophils/100 WBC (Bld)0.5 %Normal0.2-2.0The [facility] Comment on above:Performed By: #### THCCONF #### [facility] [address] [place] [address] Dr. Nannette Figueroa #0.2 103/ulNormal0.0-0.7The [facility] CenterComment on above: Performed By: #### THCCONF #### [facility] [address] [place] [address] Dr. Nannette Moyaosinophils/100 WBC (Bld)1.5 %Normal0.9-7.0[facility] Comment on above:Performed By: #### THCCONF #### [facility] [address] [place] [address] Dr. Nannette Moyarythrocyte distribution width (RBC) [Ratio]11.9 %Hmucgs67.0-15.0 City HospitalComment on above:Performed By: #### THCCONF #### [facility] [address] [place] [address] Dr. Nannette BakerHematocrit (Bld) [Volume fraction]33.9 %Critically low36.0-48.0 City HospitalComment on above:Performed By: #### THCCONF #### [facility] [address] [place] [address] Dr. Nannette BakerHemoglobin (Bld) [Mass/Vol]11.9 g/dLCritically low12.0-16.0City HospitalComment on above:Performed By: #### THCCONF #### [facility] [address] [place] [address] Dr. Nannette Longoria #0.02 10e3/ulNormal0.00-0.03The [facility] CenterComment on above:Performed By: #### THCCONF #### [facility] [address] [place] [address] Dr. Nannette Longoria %0.2 %Normal0.0-0.5The [facility] CenterComment on above: Performed By: #### THCCONF #### [facility] [address] [place] [address] Dr. Nannette Gregg #1.8 103/ulNormal1.2-3.8The [facility] CenterComment on above:Performed By: #### THCCONF #### [facility] [address] [place] [address] Dr. Nannette Vannhocytes/100 WBC (Bld)17.3 %Critically low20.5-60.0The [facility] CenterComment on above:Performed By: #### THCCONF #### [facility] [address] [place] [address] Dr. Nannette AshbyUAL DIFF REQNONormalThe [facility] CenterComment on above: Performed By: #### THCCONF #### [facility] [address] [place] [address] Dr. Nannette Duenas (RBC) [Entitic mass]31.7 cpJlxdcd35.7-34.0The [facility] CenterComment on above:Performed By: #### THCCONF #### [facility] [address] [place] [address] Dr. Nannette Duenas (RBC) [Mass/Vol]35.1 g/lYQfqybg79.9-35.2The [facility] CenterCommunson medical center on above:Performed By: #### THCCONF #### [facility] [address] [place] [address] Dr. Nannette Duenas (RBC) [Entitic vol]90.4 tWDmmirb28.0-99.0The [facility] CenterComment on above:Performed By: #### THCCONF #### [facility] [address] [place] [address] Dr. Nannette Carrillo #0.5 103/ulNormal0.3-0.8The [facility] CenterComment on above:Performed By: #### THCCONF #### [facility] [address] [address] [address] Nannette Bestocytes/100 WBC (Bld)4.2 %Normal1.7-12.0The [facility] Comment on above:Performed By: #### THCCONF #### [facility] [address] [place] [address] Dr. Nannette Franz #8.1 103/ulCritically high1.4-6.5The [facility] Comment on above:Performed By: #### THCCONF #### [facility] [address] [place] [address] Dr. Nannette Travisutrophils/100 WBC (Bld)76.3 %Critically high43.0-75.0The [facility] CenterComment on above:Performed By: #### THCCONF #### [facility] [address] [place] [address] Dr. Nannette BakerPlatelet mean volume (Bld) [Entitic vol]9.3 fLCritically low 9.5-13.5The [facility] CenterComment on above:Performed By: #### THCCONF #### [facility] [address] [place] [address] Dr. Nannette BakerPLT257 103/ubNujucd567-971Sag [facility] CenterComment on above: Performed By: #### THCCONF #### [facility] [address] [place] [address] Dr. Nannette BakerRBC3.75 106/ulCritically low4.20-5.40The [facility] CenterComment on above:Performed By: #### THCCONF #### [facility] [address] [place] [address] Dr. Nannette BakerWBC10.6 103/ulNormal4.0-11.0The [facility] CenterComment on above:Performed By: #### THCCONF #### [facility] [address] [place] [address] Dr. Nannette Schaffer URINEon [id number] URINECulture Observations: LIGHT GROWTH OF MIXED GENITAL RENETTA. NO POTENTIAL PATHOGENS SEEN.NormalCity HospitalComment on above:Performed By: #### URCX #### [facility] [address] [place] [address] Dr. Nannette BakerGLYCOHEMOGLOBIN A1Con [id number] RECOMMENDATIONADA THERAPEUTIC TARGET 6.0 - 7.0 ACTION SUGGESTED > 7.0NoRegency Hospital Cleveland EastComment on above:Performed By: #### THCCONF #### [facility] [address] [place] [address] Dr. Nannette BakerGlucose [Mass/Vol]91 mg/dLNoRegency Hospital Cleveland EastComment on above:Performed By: #### THCCONF #### [facility] [address] [place] [address] Dr. Nannette BakerHbA1c (Bld) [Mass fraction]4.8 %Normal<=6.0[facility] Comment on above:Performed By: #### THCCONF #### [facility] [address] [place] [address] Dr. Nannette Ontiveros BOX TEST PT SEND OUTon [id number] TO REF LAB04/30/2021 NormalCity HospitalComment on above:Performed By: #### CVDTBH #### [facility] [address] [place] [address] Dr. Nannette BkaerTYPE AND SCREENon [id number] AND SCREENNegativeNoRegency Hospital Cleveland EastComment on above:Performed By: #### CVDTBH #### [facility] [address] [place] [address] Dr. Nannette BakerUS PREG TVon [id number] PREG TVEXAMINATION: US PREG TV HISTORY: Missed period COMPARISON: [...] weeks 3 days Electronically authenticated by: WENDY GALARZA Date: 2021-04-05 09:09[facility] Vital Signs Date TimeVital SignValuePerforming [id number] 11:50-0400Body mass index (BMI) [Ratio]23.35 kg/a6Igovr [employer] Work Phone: [facility] CenterMtnjhmlxts72-47-6713 11:50-0400Body fpnjit83.78 kgCoreFrengo Phone: [facility] CenterIwfwojefda14-12-8134 11:50-0400Diastolic blood opcdiqcn17 mm[Hg][employer] Work Phone: [facility] CenterVcjhelndjm38-33-2922 11:50-0400Systolic blood pqptvnoz448 mm[Hg][employer] Phone: [facility] CenterFftdveirgd28-19-5727 13:07-0400Diastolic blood vqpcgebt65 mm[Hg]Alex Correia [facility]03-14-2025 13:07-0400Heart rate67 /minAlex Correia [facility]03-14-2025 13:07-0400Mean blood mm[Hg]Alex Correia [facility]03-14-2025 13:07-0400 Respiratory rate18 /minAlex Correia [facility]03-14-2025 13:07-5252ZjU2% (BldA) [Mass fraction]98 %Alex Correia [facility]03-14-2025 13:07-0400 Systolic blood mm[Hg]Alex Correia [address] [place], [place] 2869203-14-2025 12:35-0400 Diastolic blood slerrtae68 mm[Hg]Alex Correia [address] [place], [place] 2869203-14-2025 12:35-0400Heart rate56 /minAlex Correia [address] [place], [place] 2869203-14-2025 12:35-0400Mean blood vjiiphyd178 mm[Hg]Alex Correia [address]03-14-2025 12:35-0400 Respiratory rate18 /minAlex Correia [address] [place], [place] 2869203-14-2025 12:35-4339BaW3% (BldA) [Mass fraction]99 %Alex Correia [address] [place], [place] 2869203-14-2025 12:35-0400 Systolic blood pymxzpqu327 mm[Hg]Alex Correia [address] [place], [place] 2869203-14-2025 12:00-0400Heart rate65 /minAlex Correia [address] [place], [place] 2869203-14-2025 12:00-0400Mean blood mm[Hg]Alex Correia [address] [place], [place] 2869203-14-2025 12:00-3258XeY0% (BldA) [Mass fraction]97 %Alex Correia [address] [place], [place] 2869203-14-2025 12:00-0400 Systolic blood wfcfiwhi123 mm[Hg]Alex Correia [address] [place], [place] 2869203-14-2025 11:32-0400Heart rate71 /minIrishn Masood [address] [place], [place] 2869203-14-2025 11:00-0400Heart rate80 /minJohn Masood [facility]03-14-2025 10:30-0400Heart rate77 /minJohn Masood [facility]03-14-2025 09:08-0400Body osnxfpghqwv95.88 [degF]Alex Correia [facility]10-03-2024 12:43-0400 Diastolic blood tzovvjrw43 mm[Hg]Yohannes Mouchli [facility]10-03-2024 12:43-0400Heart rate58 /minMohamad Mouchli [facility]10-03-2024 12:43-0400Mean blood ebprzanm97 mm[Hg]Brownd Mouchli [facility]10-03-2024 12:43-0400 Respiratory rate17 /minMohamad Mouchli [facility]10-03-2024 12:43-7598PwX0% (BldA) [Mass fraction]100 %Mohamad Mouchli [facility]10-03-2024 12:43-0400 Systolic blood aohcwpmn594 mm[Hg]Mohamad Mouchli [facility]10-03-2024 12:30-0400 Diastolic blood fxebgsbc62 mm[Hg]Mohamad Mouchli [facility]10-03-2024 12:30-0400Heart rate59 /minMohamad Mouchli [facility]10-03-2024 12:30-0400Mean blood bydhcaqe88 mm[Hg]Mohamad Mouchli [address] [place], [place] 8500810-03-2024 12:30-0400 Respiratory rate20 /minMohamad Mouchli [address] [place], [place] 2448310-03-2024 12:30-8690BbF7% (BldA) [Mass fraction]100 %Mohamad Mouchli [address] [place], [place] 2448310-03-2024 12:30-0400 Systolic blood kbrjcdbe834 mm[Hg]Mohamad Mouchli [address] [place], [place] 2448310-03-2024 12:25-0400 Diastolic blood dfqhouck43 mm[Hg]Mohamad Mouchli [address] [place], [place] 2448310-03-2024 12:25-0400Heart rate70 /minMohamad Mouchli [address] [place], [place] 8500810-03-2024 12:25-0400Mean blood bdngionw27 mm[Hg]Mohamad Mouchli [address] [place], [place] 8500810-03-2024 12:25-0400 Respiratory rate23 /minMohamad Mouchli [address] [place], [place] 8500810-03-2024 12:25-6112OsP1% (BldA) [Mass fraction]99 %Mohamad Mouchli [address] [place], [place] 8500810-03-2024 12:25-0400 Systolic blood vdakveut882 mm[Hg]Mohamad Mouchli [address] [place], [place] 8500810-03-2024 12:20-0400Blood Pressure LocationMohamad Mouchli [address] [place], [place] 2448310-03-2024 12:20-0400Body vajnfpnrdqj19.88 [degF]Mohamad Mouchli [address] [place], [place] 2448310-03-2024 12:15-0400 Respiratory rate15 /minMohamad Mouchli [facility]10-03-2024 12:10-0400 Respiratory rate15 /minMohamad Mouchli [address] [place], [place] 8500810-03-2024 11:21-0400Blood Pressure LocationMohamad Mouchli [address] [place], [place] 8500810-03-2024 11:21-0400Body xpinjzkgzrg99.88 [degF]Mohamad Mouchli [address] [place], [place] 8500810-03-2024 11:21-0400 Respiratory rate16 /minMohamad Mouchli [address] [place], [place] 8500809-18-2024 14:55-0400 Diastolic blood smdeghpp90 mm[Hg]Mohamad Mouchli 068-5986Rlkggn-Zxzty[address] [place], [place] 2100509-18-2024 14:55-0400Mean blood cygyxnnq644 mm[Hg]Mohamad Mouchli 720-5483Xkdjpi-Wscon[address] [place] [place], [place] 2100509-18-2024 14:55-0400Systolic blood yhopnefx238 mm[Hg]Mohamad Mouchli [phone]-Gprss[address] [place], [place] 2100509-18-2024 14:49-0400Blood Pressure LocationMohamad Mouchli [phone]-Cfdsc[address] [place], [place] 2100509-18-2024 14:49-0400Diastolic blood myracyef41 mm[Hg]Mohamad Mouchli [phone]-Xeggt[address] [place], [place] 2100509-18-2024 14:49-0400Heart rate80 /minMohamad Mouchli [phone]-Gxbjk[address] [place], [place] 2100509-18-2024 14:49-0400Respiratory rate16 /minMohamad Mouchli [phone]-FkzloScci [facility]09-18-2024 14:49-0400Systolic blood ejwjmxfo539 mm[Hg]Yohannes Ramos [phone]-OphvyScci Hospital [facility]09-16-2024 12:23-0400Diastolic blood tyayjnzs18 mm[Hg]Alex Correia [facility]09-16-2024 12:23-0400Heart rate59 /minJohn Masood [facility]09-16-2024 12:23-0400Mean blood ruivqofb776 mm[Hg]Alex Correia [facility]09-16-2024 12:23-0400 Respiratory rate20 /minJohn Masood [facility]09-16-2024 12:23-0885DtN2% (BldA) [Mass fraction]97 %Alex Correia [facility]09-16-2024 12:23-0400 Systolic blood rlhwzzop518 mm[Hg]Alex Correia [facility]09-16-2024 10:55-0400 Diastolic blood zzgqnlef53 mm[Hg]Alex Correia [facility]09-16-2024 10:55-0400Heart rate59 /minJohn Masood [facility]09-16-2024 10:55-0400Mean blood frtexlvt07 mm[Hg]Alex Correia [facility]09-16-2024 10:55-0400 Respiratory rate20 /minJohn Masood [facility]09-16-2024 10:55-1730RuQ3% (BldA) [Mass fraction]97 %Alex Correia [address] [place], [place] 2869209-16-2024 10:55-0400 Systolic blood owazhiut445 mm[Hg]Alex Correia [address] [place], [place] 2869209-16-2024 09:14-0400Body dgswbibgequ70.42 [degF]Alex Correia [address] [place], [place] 2869209-16-2024 09:14-0400 Diastolic blood ezsrlyis625 mm[Hg]Alex Correia [address]09-16-2024 09:14-0400Heart rate65 /minJoconchita Correia [address]09-16-2024 09:14-0400 Respiratory rate24 /minJoconchita Correia [address]09-16-2024 09:14-3175VeY2% (BldA) [Mass fraction]98 %Alex Correia [address] [place], [place] 2869209-16-2024 09:14-0400 Systolic blood fktojffg659 mm[Hg]Alex Correia [address]09-15-2024 05:49-0400 Diastolic blood phalvwcp918 mm[Hg]Ritesh Pascal [address] [place], [place] 2869209-15-2024 05:49-0400Heart rate68 /minNoah Naida [address] [place], [place] 2869209-15-2024 05:49-0400Mean blood zorejcqb609 mm[Hg]Ritesh Naida [address] [place], [place] 2869209-15-2024 05:49-0400 Respiratory rate29 /minNoah Naida [address] [place], [place] 2869209-15-2024 05:49-9706LbV1% (BldA) [Mass fraction]99 %Ritesh Naida [address] [place], [place] 1031209-15-2024 05:49-0400 Systolic blood xdgnjast391 mm[Hg]Ritesh Naida [address] [place], [place] 1031209-15-2024 04:30-0400Body grnnakymtfm36.88 [degF]Ritesh Naida [address] [place], [place] 1031209-15-2024 04:30-0400 Diastolic blood lnnajzqz95 mm[Hg]Ritesh Naida [address] [place], [place] 1031209-15-2024 04:30-0400Heart rate59 /minNoah Naida [address] [place], [place] 1031209-15-2024 04:30-0400Mean blood kjaqxkto710 mm[Hg]Ritesh Naida [address] [place], [place] 1031209-15-2024 04:30-0400 Respiratory rate49 /minNoah Naida [address] [place], [place] 1031209-15-2024 04:30-4775QmN8% (BldA) [Mass fraction]97 %Ritesh Naida [address] [place], [place] 1031209-15-2024 04:30-0400 Systolic blood xlsdksyl447 mm[Hg]Ritesh Naida [address] [place], [place] 1031209-15-2024 03:00-0400 Diastolic blood kollerip226 mm[Hg]Ritesh Naida [address] [place], [place] 1031209-15-2024 03:00-0400Heart rate71 /minNoah Naida [address] [place], [place] 1031209-15-2024 03:00-0400 Respiratory rate20 /minNoah Naida [address] [place], [place] 2869209-15-2024 03:00-1976QpM8% (BldA) [Mass fraction]98 %Ritesh Naida [facility]09-15-2024 03:00-0400 Systolic blood sqdmbsut867 mm[Hg]Ritesh Naida [facility]09-14-2024 23:35-0400Body radgvxddhgj87.7 [degF]Ritesh Naida [address] [place], [place] 2869209-14-2024 23:35-0400Heart rate82 /minNo Naida [facility]09-14-2024 23:35-0400 Respiratory rate25 /minNoeliud Naida [facility]02-15-2024 10:35-0500Body mass index (BMI) [Ratio]25.69 kg/y6Fsmai Kesha DO Work Phone: [facility] CenterUgwyuqzria13-53-4386 10:35-0500Body gthodn53.77 kgCorey Kesha DO Work Phone: [facility] CenterBerrtjlqpg00-48-8246 10:35-0500Diastolic blood jnhyjogp30 mm[Hg]Clarke Kesha DO Work Phone: [facility] CenterCsordbmroy83-67-8717 10:35-0500Systolic blood gvhmqsuh639 mm[Hg]Clarke Kesha DO Work Phone: [facility] CenterPlhdwyuzyi54-64-1363 13:00-0500Diastolic blood ipefvhfq57 mm[Hg][facility]11-10-2023 13:00-0500Heart rate60 /[facility] 13:00-0500Respiratory rate14 /[facility] 01-02-2023 13:00-0500Systolic blood mm[Hg][facility]11-10-2023 10:19-0500Diastolic blood kveasaos63 mm[Hg][facility]11-10-2023 10:19-0500Heart rate67 /min [facility]11-10-2023 10:19-0500Mean blood wfbhlhvo10 mm[Hg][facility]11-10-2023 10:19-0500Respiratory rate16 /min[facility] 01-02-2023 10:19-4504EkM3% (BldA) [Mass fraction]100 %[facility]11-10-2023 10:19-0500Systolic blood ywyklgkd038 mm[Hg][facility]11-10-2023 08:58-0500Body kexmqupiffk21.88 [degF][facility]11-10-2023 08:58-0500Diastolic blood eazdzkku63 mm[Hg][facility]11-10-2023 08:58-0500Heart rate77 /[facility]11-10-2023 08:58-0500Respiratory rate18 /[facility] 01-02-2023 08:58-0500Systolic blood mm[Hg][facility]04-29-2023 05:00-0400Diastolic blood lorqqyho24 mm[Hg]Ritesh Naida [facility]04-29-2023 05:00-0400Heart rate65 /minNoah Naida [facility]04-29-2023 05:00-0400 Hourly RoundingNoah Naida [facility]04-29-2023 05:00-0400 Promise to ReturnNoah Naida [address] [place], [place] 2869204-29-2023 05:00-0400 Respiratory rate12 /minNoah Naida [address] [place], [place] 2869204-29-2023 05:00-7952YmO3% (BldA) [Mass fraction]99 %Ritesh Naida [address] [place], [place] 2869204-29-2023 05:00-0400 Systolic blood qnqabmzq537 mm[Hg]Ritesh Naida [address] [place], [place] 2869204-29-2023 04:00-0400 Diastolic blood flgsmxul28 mm[Hg]Ritesh Naida [address] [place], [place] 2869204-29-2023 04:00-0400Heart rate67 /minNoah Naida [address] [place], [place] 2869204-29-2023 04:00-0400 Hourly RoundingNoah Naida [address] [place], [place] 2869204-29-2023 04:00-0400 Promise to ReturnNoah Naida [address] [place], [place] 2869204-29-2023 04:00-0400 Respiratory rate16 /minNoah Naida [address] [place], [place] 2869204-29-2023 04:00-5919RlK2% (BldA) [Mass fraction]100 %Ritesh Naida [address] [place], [place] 2869204-29-2023 04:00-0400 Systolic blood ozkngyua421 mm[Hg]Ritesh Naida [address] [place], [place] 2869204-29-2023 03:00-0400 Diastolic blood gxcwlqig98 mm[Hg]Ritesh Naida [address] [place], [place] 2869204-29-2023 03:00-0400Heart rate64 /minNoah Naida [facility]04-29-2023 03:00-0400 Hourly RoundingRitesh Naida [facility]04-29-2023 03:00-0400 Promise to ReturnNoeliud Naida [facility]04-29-2023 03:00-0400 Systolic blood mm[Hg]Ritesh Naida [address] [place], [place] 2869204-28-2023 23:24-0400Body oxqhyquilzr76.24 [degF]Ritesh Naida [address] [place], [place] 2840305-12-2022 02:06-0400Body .1432 kgDR [facility] CampusComment on above:Performed By: #### AFPMAT #### [facility] [address] [place] [address] Dr. Nnanette Baker Encounters Encounter DateEncounter TypeCare ProviderFacilityStart: 06-30-2024 End: 22-25-6957mosojvqhwpDIYOX FAZIONot AvailableStart: 06-14-2024 End: 39-12-5780Ifrgon flowsheetCorey Kesha DO Work Phone: [facility] BCP OBStart: 06-14-2024 End: 65-40-9672Hvnxuj flowsheetCorey Kesha DO Work Phone: [facility] BCP OBStart: 06-14-2024 End: 53-54-6414Eccygbvnz Result EncounterCorey Kesha DO Work Phone: noms External Department UnsolicitedStart: 06-14-2024 End: 68-63-6549nyxqrmrjobNCCDS FAZIONot AvailableStart: 06-14-2024 End: 89-61-2613Atndez outpatient visit 15 minutesCorey Kesha DO Work Phone: noms BCP OBComment on above:Abnormal menstrual cycle; PCOS (polycystic ovarian syndrome); Cervicitis and endocervicitisStart: 05-06-2024 End: 17-83-7586Pkiehcdal department patient visitJoconchita Masood [facility] Start: 11-26-2023 End: 41-16-3038atcrgietjnAnxosor A. MouchliFacility:FTMCStart: 11-26-2023 End: 00-32-1486Yjwkhtm encounter procedureYohannes Ramos [facility] Start: 11-11-2023 End: 60-90-8114pqimyhsjnvDctqyqx A. MouchliFacility:VizcarraSofíaMcwilliams DHStart: 11-11-2023 End: 72-43-6049Yifzfua encounter procedureYohannes Ramos 559-1700Ivnhzg-MdiuiMary [facility] Start: 81-38-3122jcmgyjevueUgkp ParenteFacility:[facility] DHStart: 11-09-2023 End: 04-64-8617Rcminpwqv department patient visitJohn ParenteFacility:[facility] CAMPUStart: 11-07-2023 End: 51-31-0271Mizgwqkbr department patient visitNoeliud PascalFacility:[facility] Start: 10-07-2023 End: 17-45-2740gdidwqozaqQYXYI FAZIONot AvailableStart: 08-05-2023 End: 69-81-8685qsztxmbqeiFETOF FAZIONot AvailableStart: 07-29-2023 End: 76-63-4313hqoxzhookdMXAVP FAZIONot AvailableStart: 07-22-2023 End: 17-48-3005Rjhnlhuti Result EncounterLucia BARRY Work Phone: noms External Department UnsolicitedStart: 07-22-2023 End: 18-58-9835Lsxjjcyce Result EncounterLucia BARRY Work Phone: noms External Department UnsolicitedStart: 07-22-2023 End: 54-44-7542htkukseeybZLXRL FAZIONot AvailableStart: 07-06-2023 End: 95-05-3323cecugiqbztUQX RAMEYNot AvailableStart: 05-11-2023 End: 70-03-8969Iyylfjgwj Result EncounterCorey Kesha DO Work Phone: NOPU External Department UnsolicitedStart: 05-11-2023 End: 25-72-1937Buwgjrkqt Result EncounterCorey Kesha DO Work Phone: NOWR External Department UnsolicitedStart: 04-09-2023 End: 57-58-8311Xustltger Result EncounterCorey Kesha DO Work Phone: NOQG External Department UnsolicitedStart: 04-09-2023 End: 85-82-4864Tlrvbfbjv Result EncounterCorey Kesha DO Work Phone: noms External Department UnsolicitedStart: 04-09-2023 End: 23-16-8076Eaeqkktv flow sheetCorey Kesha DO Work Phone: NORM BCP OBComment on above:Second trimester ; Diabetes mellitus screeningStart: 01-02-2023 End: 73-08-9481Ajauyzuun department patient visitAstrmary Nixon [facility]oOhio [facility] Start: 06-20-2022 End: 06-19-7978Hpzgscjmr department patient visitNoeliud JeremiahBert Pascal [facility] Start: 11-12-2021 End: 89-08-4213Mslvybmvvb and management of inpatientDR CLARKE FAZIOFacility:H1 Start: 10-22-2021 End: 60-62-9870opbcbfhlnlGA CLARKE FAZIOFacility:X2Suuxm: 10-22-2021 End: 76-70-8440pclhddcnylEF CLARKE FAZIOFacility:Z2Jioul: 09-25-2021 End: 85-10-1720yzlfynddakDR CLARKE FAZIOFacility:M5Xwwzi: 08-27-2021 End: 72-59-4136jxumswarfiQV DOCTOR MISCFacility:R2Vhxby: 08-23-2021 End: 09-94-4486fiesquwdihSJ CLARKE FAZIOFacility:R2Jxjzk: 07-30-2021 End: 81-96-6534fuszkhzghkIN CLARKE FAZIOFacility:U9Ralkv: 07-02-2021 End: 45-64-7729rhklomdosfLO CLARKE FAZIOFacility:V6Niysi: 07-02-2021 End: 98-94-1288ffjceticjgJT CLARKE FAZIOFacility:U6Evqwd: 04-30-2021 End: 32-22-0930urngrezdeeHR CLARKE FAZIOFacility:Z8Bmpsg: 04-05-2021 End: 25-08-6633bngeocgyuqFQ CLARKE FAZIOFacility:H1 Procedures DateProcedureProcedure DetailPerforming ClinicianStart: 11-72-8703HZI CBC WITH AUTO DIFFCorey Kesha DO Work Phone: Start: 06-14-2024 End: 36-17-1427Iyksv dip stick/tablet rgnt non-auto w/o micrscpCorey Kesha DO Work Phone: Start: 80-75-8608RsbcgdoqyrefhbgifguaqwmlrwUgdqosd Mouchli Start: 16-89-1505VP OB GROWTHAmy Oneal PA Work Phone: Start: 84-95-6701AP OB CERVICAL LENGTHCorey Kesha DO Work Phone: Start: 90-67-8688NB OB PLACENTACorey Kesha DO Work Phone: Start: 75-81-0720Gzrcg dip stick/tablet rgnt non-auto w/o micrscpCorey Kesha DO Work Phone: Start: 92-88-3224YV OB ANATOMYCorey Kesha DO Work Phone: Start: 94-27-2907VJ OB TRANSVAGINALCorey Kesha DO Work Phone: Start: 22-35-6460Gpntqvmk of Products of Conception, External ApproachDR CLARKE FAZIOStart: 96-23-6214Hvjcpdis of Amniotic Fluid, Therapeutic from Products of Conception, Via Natural or Artificial OpeningDR CLARKE FAZIOStart: 13-52-5451Xodbfw Perineum Skin, External ApproachDR CLARKE FAZIONone (qualifier value)Ritesh Pascal Plan of Treatment DateCare ActivityDetailAuthorStart: 06-30-2024 End: 80-67-1488Dxsqlsttocby / ancillary services caeogbpxdu02/08/2025 9:30 AM EDT Ancillary Procedure [facility] [address] [place] [address] [facility] BCP OBStart: 06-14-2024 End: 91-81-5951BCEVVECW Lab Routine PCOS (polycystic ovarian syndrome) Expected: 06/14/2024 (Approximate), Expires: 06/14/2025[facility] HealthcareComment on above: Expected: 06/14/2024 (Approximate), Expires: 06/14/2025Start: 06-14-2024 End: 91-38-5052GU PelvisUS Pelvis w/ TV Imaging Routine PCOS (polycystic ovarian syndrome) Expected: 06/14/2024, Expires: 06/14/2025N[facility]S HealthcareComment on above:Expected: 06/14/2024, Expires: 06/14/2025Start: 05-14-2023 End: 91-27-8822Mdldtbs encounter lunexpmpq68/21/2024 10:30 AM EDT Routine [facility] [address] [place] [address] Lucia No PA [address] [place] [address] [facility] BCP OBStart: 04-09-2023 End: 12-24-8671PVL panel - Blood by Automated countCBC Lab Routine Diabetes mellitus screening Expected: 04/09/2023 (Approximate), Expires: 04/09/2024[facility] Work Phone: comment on above:Expected: 04/09/2023 (Approximate), Expires: 04/09/2024Start: 04-09-2023 End: 83-93-5994Neloeyedzaz of glucose 1 hour after glucose challenge for glucose tolerance testGlucose tolerance, 1 hour Lab Routine Diabetes mellitus screening Expected: 04/09/2023 (Approximate), Expires: 04/09/2024[facility] HealthcareComment on above:Expected: 04/09/2023 (Approximate), Expires: 04/09/2024BC W Auto Differential panel - BloodCBC and differential Lab Routine PCOS (polycystic ovarian syndrome) Ordered: 06/14/2024[facility]:Ordered: 06/14/20247142JJDE-najzmndDDBC-kpovtfm Lab Routine PCOS (polycystic ovarian syndrome) Ordered: 06/14/2024[facility] CenterComment on above:Ordered: 06/14/2024 Follicle stimulating hormoneFollicle stimulating hormone Lab Routine PCOS (polycystic ovarian syndrome) Ordered: 06/14/2024[facility] CenterComment on above:Ordered: 06/14/2024hCG, quantitative, pregnancyhCG, quantitative, Lab Routine PCOS (polycystic ovarian syndrome) Ordered: 06/14/2024[facility] Work Phone: comment on above:Ordered: 06/14/2024Hemoglobin A1c/Hemoglobin.total in BloodHemoglobin A1c Lab Routine Abnormal menstrual cycle Ordered: 06/14/2024[facility] HealthcareComment on above:Ordered: 06/14/2024 Luteinizing hormoneLuteinizing hormone Lab Routine PCOS (polycystic ovarian syndrome) Ordered: 06/14/2024[facility] HealthcareComment on above:Ordered: 06/14/2024 Thyrotropin [Units/volume] in Serum or PlasmaTSH Lab Routine PCOS (polycystic ovarian syndrome) Ordered: 06/14/2024[facility] CenterComment on above:Ordered: 06/14/2024Thyroxine (T4) free [Mass/volume] in Serum or PlasmaT4, free Lab Routine PCOS (polycystic ovarian syndrome) Ordered: 06/14/2024[facility] Comment on above:Ordered: 06/14/2024 Immunizations Immunization DateImmunizationNotesCare JjbanfrmNjzgaboi19-04-5231omvuyqn toxoid, reduced diphtheria toxoid, and acellular pertussis vaccine, adsorbedNoah Naida [facility]09-16-2016meningococcal ACWY, unspecified formulationMohamad Mouchli 722-7863Fpadjn-MtozyMary [facility] Smctzw24-55-0866 meningococcal ACWY vaccine, unspecified formulationMohamad Mouchli 242-6186Jmvuux-RhvimScci Hospital [facility]08-19-2010 tetanus toxoid, reduced diphtheria toxoid, and acellular pertussis vaccine, adsorbedMohamad Mouchli [phone]-TygvmScci Hospital [facility]ima08-19-2010 varicella virus vaccineMohamad Mouchli 771-9163Twqspl-KsvqpScci Hospital LimaNEGATED: Highlighted row has not occurred!96-78-2320vbowmdaxc virus vaccine, unspecified formulationMohamad Mouchli [phone]-YdzykMary [facility] Payers DatePayer CategoryPayerPolicy [id number] Health InsuranceAMBETTER SAUMYAGEISING[facility] Member Subscriber Plan / Payer (Effective 2023-Present) Name: Ruth Grossman Relation to Subscriber: Self Name: Ruth Grossman Payer ID: Not on file Type: Not on file Address: [address] [id number] Cross Blue ShieldBCBS [id number]hknLGSP BCBS [id number] 2018-Present [phone] [address] [place] [address] 1.2.840.711064.1.13.693.2.7.3.374[id number] 2..1.391914.3.579.2.59396-20-0721Dczdjgr1373519 2..1.577079.3.579.2.28052-25-7540Yvsnmxu3567004 2..1.078637.3.579.2.89126-45-9784Rtuqzwh9504094 2..1.182736.3.579.2.93516-53-5496Kwzwzyz9118640 2.0.1.455395.3.579.2.85306-21-4406Ohqjaqc6551237 2..1.334625.3.579.2.73574-59-0538Jhlspct1342845 2.16.1.231722.3.579.2.42770-85-0338Ilrdrzd5347219 2.0.1.656487.3.579.2.63298-70-1795Engdpgt9978277 2.16840.1.178443.3.579.2.14024-92-7150Vlnlxkg1599547 2.16840.1.779945.3.579.2.57290-51-1979Gpvisdb5973852 2.16840.1.604406.3.579.2.59964-56-2670Sxjgfwu58695249 2.16840.1.434243.3.579.2.60377-98-2583Chevuqs38631577 2.0.1.325380.3.579.2.69685-41-5167Narudnm69869082 2.840.1.811026.3.579.2.09448-76-6305Hmzxqzt65611661 2.840.1.750001.3.579.2.36692-85-9003Njkjfjw39599080 2.840.1.878871.3.579.2.71019-52-0602Woxosoh82829187 2.0.1.246600.3.579.2.06560-46-2874Kcwxbgx38103176 2.840.1.080439.3.579.2.90811-49-2984Otvvkyi89720411 2.0.1.193655.3.579.2.67906-42-0290Wipmisz18337618 2.16840.1.148644.3.579.2.18150-73-6250Rbqhjxp17835685 2.840.1.355527.3.579.2.45451-75-4796Jxumxxa82880107 2.840.1.853480.3.579.2.62233-46-8228Ilrddbz91170098 2.16840.1.077254.3.579.2.68471-00-0875Ywhcxfu03183948 2.16.840.1.880851.3.579.2.92719-99-0189Ljmzpda91418505 2.16.840.1.781873.3.579.2.85172-46-2097Exhepfu4556549 2.16.840.1.682432.3.579.2.442110-85-6827Aovvghm9115863 2.16.840.1.396532.3.579.2.997699-61-7592Mfnlgim4549624 2.16.840.1.458560.3.579.2.493125-93-1944Dvkgcgb5793238 2.16.840.1.384237.3.579.2.640356-50-4220Ijrvphc8358704 2.16.840.1.613386.3.579.2.889434-70-9964Volkosg2128382 2.16.840.1.392514.3.579.2.364208-75-4322Qpfahdw0285595 2.16.840.1.420798.3.579.2.019528-87-9239Sbcp-agi08-04-6311IjpihetVLH721D72667 07-74-3665Noctnve368082892058Kahoyzb3134659 2.16840.1.063851.3.579.2.593 Social History DateTypeDetailFacilityTobaccoNever smokerLakehealth [facility] Medical CenterComment on above:Denies.Tobacco smoking statusNo Smoking Status EnteredSt. Elizabeth Hospitaltart: 02-12-2023 End: 16-01-6901Lue Assigned At BirthFemalTrinity Health System West Campustart: 29-98-7931Gbbusmj smoking status NHISNever smoked tobaccoNOMS HealthcareStart: 02-57-8245Ugciohm use and exposureSmokeless tobacco non-userNOMS Healthcare Start: 04-09-2023 End: 90-11-9758Ybqgzrz intakeLifetime non-drinker (finding)[facility] HealthcareStart: 02-12-2023 End: 68-34-2911Vvijtuj of Social functionMOUNTAIN VIEW HOSPITAL HealthcareStart: 48-47-8860Zhsnbcg Commentcaffeine: coffee and soda 16 ozMOUNTAIN VIEW HOSPITAL HealthcareStart: 22-37-1854Bdldxczma [facility] HealthcareStart: 20-20-3420Szy Assigned At BirthFeSpaulding Rehabilitation Hospital HealthcareStart: 62-06-9036Oyxtqi identityIdentifies as female gender (finding)[facility] Start: 78-96-4242RwqQiyvubUDAZ Healthcare Functional Status TqylFhccgotxueQhpozyJthelmjc01-59-8832Ovxgjtfvtb StatusN/[facility]10-03-2024Functional StatusN/[facility]09-18-2024 Functional StatusN/[facility] Xehpya82-13-2652 Functional StatusN/[facility]09-14-2024Functional StatusN/A [facility]11-10-2023Functional StatusN/[facility]04-28-2023Functional StatusN/[facility] Clinical Notes 06-21-2022 to 06-14-2024 Note Date & SjlxAzlpVxmnxfga69-30-5305 History of Present illness Narrative* Chaya Rivera, DIE ASSEMBLER - 06/14/2024 11:40 AM EDT Reason for Appointment: Patient ID: Ruth Moreno Grossman is a 29 y.o. female who presents for Menstrual Problem Patient presents today for Acute Visit. MEDICATIONS Current Outpatient Medications Medication Instructions citalopram (CELEXA) 20 mg, Oral, Daily drospirenone-ethinyl estradiol (Ocella) 3-0.03 MG tablet 1 tablet, Oral, Daily, Take 1 tablet by mouth daily ondansetron ODT (Zofran-ODT) 4 MG disintegrating tablet TAKE 1 TABLET BY MOUTH EVERY 6 HOURS NEEDED FOR NAUSEA AND VOMITING ALLERGIES No Known Allergies PROBLEMS Active Ambulatory Problems Diagnosis Date Noted No Active Ambulatory Problems Resolved Ambulatory Problems Diagnosis Date Noted No Resolved Ambulatory Problems Past Medical History: Diagnosis Date 2016 Anxiety Impetigo HISTORY PAST MEDICAL HISTORY SOCIAL HISTORY Past Medical History: Diagnosis Date 2016 Anxiety Impetigo Social History Tobacco Use Smoking status: Never Smokeless tobacco: Never Substance Use Topics Alcohol use: Never Comment: caffeine: coffee and soda 16 oz Drug use: Never FAMILY HISTORY Family History Problem Relation Name Age of Onset Hypertension Father SURGICAL HISTORY History reviewed. No pertinent surgical history. REVIEW OF SYSTEMS Review of Systems: Review of Systems Constitutional: Negative. HENT: Negative. Eyes: Negative. Respiratory: Negative. Cardiovascular: Negative. Gastrointestinal: Negative. Genitourinary: Negative. Musculoskeletal: Negative. Skin: Negative. Neurological: Negative. All other systems reviewed and are negative. Hematological: Negative. Endocrine: Negative. Allergic/Immunologic: Negative. OBJECTIVE Objective: Physical Exam Constitutional: Appearance: Normal appearance. She is well-developed. Genitourinary: Vulva normal. Cardiovascular: Rate and Rhythm: Normal rate and regular rhythm. Pulmonary: Effort: Pulmonary effort is normal. Breath sounds: Normal breath sounds. Abdominal: General: Bowel sounds are normal. There is no distension. Palpations: Abdomen is soft. Tenderness: There is no abdominal tenderness. There is no guarding or rebound. Musculoskeletal: General: No swelling. Normal range of motion. Right lower leg: No edema. Left lower leg: No edema. Neurological: Mental Status: She is alert and oriented to person, place, and time. Skin: General: Skin is warm and dry. Psychiatric: Mood and Affect: Mood normal. Behavior: Behavior normal. Vitals and nursing note reviewed. Exam conducted with a nurse staff industrial present. Vitals: Estimated body mass index is 23.35 kg/m as calculated from the following: Height as of 02/25/22: 5' 3 . Weight as of this encounter: 131 lb 12.8 oz. BP: 120/70 Patient's last menstrual period was 06/13/2024. ASSESSMENT & PLAN ICD-10-CM 1. Abnormal menstrual cycle N92.6 POCT , urine manually resulted POCT urinalysis dipstick manually resulted Pt presents with Aub and pelvic pressure , cervicitis noted -rx for doxycycline faxed to pharmacy. Pt given labs and ultrasound orders to have obtained. Documented by Chaya Rivera LPN on behalf of: Clarke Rebolledo DO documented in this encounterResearch Medical [id number] Evaluation + Plan note Extracted from:Title:ED NoteAuthor:Alex Correia DODate:05/06/24 Cyclic vomiting syndrome (R1 1.15: Cyclical vomiting syndrome unrelated to migraine) Orders: dicyclomine, 20 mg = 1 tab(s), Oral, TID, X 7 day(s), # 21 tab(s), Refills(s) 0, Pharmacy: [facility]/pharmacy #[id number], 160, cm, 05/06/24 9:09:00 EDT, Height/Length Dosing, 61, kg, 05/06/24 9:09:00 EDT, Weight Dosing dicyclomine, 20 mg = 2 mL, Injection, IntraMuscular, Once, Stop date 05/06/24 12:49:00 EDT, STAT, Start date 05/06/24 12:49:00 EDT, 05/06/24 12:49:00 EDT haloperidol, 2.5 mg = 0.5 mL, Injection, IntraMuscular, Once, Stop date 05/06/24 10:28:00 EDT, STAT, Start date 05/06/24 10:28:00 EDT, 05/06/24 10:28:00 EDT lorazepam, 1 mg = 0.5 mL, Injection, IV Push, Once, Stop date 05/06/24 10:27:00 EDT, STAT, Start date 05/06/24 10:27:00 EDT, 05/06/24 10:27:00 EDT omeprazole, 20 mg = 1 cap(s), Oral, Daily, # 30 cap(s), Refills(s) 0, Pharmacy: [facility]/pharmacy #[id number],160, cm, 05/06/24 9:09:00 EDT, Height/Length Dosing, 61, kg, 05/06/24 9:09:00 EDT, Weight Dosing ondansetron, 4 mg = 1 tab(s), Oral, q6hr, X 3 day(s), # 10 tab(s), Refills(s) 0, Pharmacy: [facility]/pharmacy #[id number], 160, cm, 05/06/24 9:09:00 EDT, Height/Length Dosing, 61, kg, 05/06/24 9:09:00 EDT, Weight Dosing pantoprazole, 40 mg = 10 mL, Injection, IV Push, Once, Stop date 05/06/24 9:07:00 EDT, STAT, Start date 05/06/24 9:07:00 EDT, 05/06/24 9:07:00 EDT promethazine 25 mg + Sodium Chloride 0.9% intravenous solution 50 mL, Injection, IV Piggyback, Once, Stop date 05/06/24 9:07:00 EDT, STAT, Start date 05/06/24 9:07:00 EDT, 153 mL/hr, Infuse over 20 minute(s) Sodium Chloride 0.9% intravenous solution, 1,000 mL, Soln-IV, IV, Once, Stop date 05/06/24 9:07:00 EDT, STAT, Start date 05/06/24 9:07:00 EDT, Infuse over 61, minute(s) Basic Metabolic Panel Beta hCG Qual CBC w/ Auto Diff eGFR Extra Blue Tube Extra SST Tube Hepatic Function Panel Lipase Level UA with Cult Rflx [facility] 03-14-2025 Hospital Discharge instructions Follow Up Care 05/06/2024 08:52:34 With:Marito Hernandez Address: [address] [facility], [address] [phone] Business (1) When:05/09/2024 12:53:15 With:Myrna Tenorio Address: [address] [facility] [place] [address]- Business (1) When:Within 3 Day(s) [facility] 10-03-2024 NoteProgress Note-Physician Patient: RUTH GROSSMAN Age: 28 years Sex: Female : 1995 Associated Diagnoses: None Author: Apple Bianchi Jr, DO Preoperative Information Anesthesia Preop Info: Time patient last ate or drank 11/26/2023 00:00:00. Anesthesia history: Patient history: None. Family history+: None. Informed consent: Signed by patient. Re-evaluation prior to induction: Initial evaluation reviewed: No significant change. Review of Systems Eye: Negative except as documented in history of present illness. Ear/Nose/Mouth/Throat: Negative except as documented in history of present illness. Respiratory: Negative except as documented in history of present illness. Cardiovascular: Negative except as documented in history of present illness. Musculoskeletal: Negative except as documented in history of present illness. Neurologic: Negative except as documented in history of present illness. Health Status Allergies: Allergic Reactions (Selected) No Known Allergies Problem list: All Problems Tetrahydrocannabinol (THC) dependence / SNOMED CT [id number] / Confirmed Canceled: No Chronic Problems / Cerner NKP Canceled: BMI 25.0-25.9,adult / SNOMED CT [id number] Histories Procedure history: None ([id number]). Social History Social & Psychosocial Habits Alcohol 11/11/2023 Risk Assessment: Denies Alcohol Use Comment: Delfina. - 06/20/2022 23:35 - Veronica Bryan RN Substance Abuse 11/11/2023 Risk Assessment: Denies Substance Abuse Comment: Delfina. - 06/20/2022 23:36 - Veronica Bryan RN 11/11/2023 Type: Marijuana Tobacco 11/11/2023 Risk Assessment: Denies Tobacco Use 11/11/2023 Tobacco Use: Never (less than 100 in l 11/11/2023 Tobacco Use: Never (less than 100 in l Smokeless tobacco use: Never 11/11/2023 Tobacco Use: Never (less than 100 in l Smokeless tobacco use: Never Comment: Delfina. - 06/20/2022 23:35 - Veronica Bryan RN 11/11/2023 Smokeless tobacco use: Current vaping or e-cigar . Physical Examination Airway: Mallampati classification: II (soft palate, fauces, uvula visible). Respiratory: adequate air exchange. Cardiovascular: Regular rhythm. Plan [place] [employer] Anesthesiologists (ASA) physical status classification: Class II. Anesthetic Preoperative Plan: Anesthesia General.[facility] Comment on above:Result Comment: Electronically Signed By: Apple Bianchi Jr, DO\cate\Date and Time Signed: 11/26/23 16:27 [id number] NoteProgress Note-Physician Patient: RUTH GROSSMAN Age: 28 years Sex: Female : 1995 Associated Diagnoses: None Author: Apple Bianchi Jr, DO Postoperative Information Postoperative disposition: Postoperative disposition: To PACU. Optimetrix number: Optimetrix number [id number]. Anesthetic utilized: General. Health Status Allergies: Allergic Reactions (Selected) No Known Allergies Physical Examination Vital Signs 11/26/2023 12:43 EDT Heart Rate Monitored 58 bpm LOW Respiratory Rate Monitored 17 br/min Systolic Blood Pressure 121 mmHg Diastolic Blood Pressure 83 mmHg Mean Arterial Pressure, Cuff 96 mmHg SpO2 100 % 11/26/2023 12:30 EDT Heart Rate Monitored 59 bpm LOW Respiratory Rate Monitored 20 br/min Systolic Blood Pressure 106 mmHg Diastolic Blood Pressure 64 mmHg Mean Arterial Pressure, Cuff 78 mmHg SpO2 100 % 11/26/2023 12:25 EDT Heart Rate Monitored 70 bpm Respiratory Rate Monitored 23 br/min Systolic Blood Pressure 106 mmHg Diastolic Blood Pressure 64 mmHg Mean Arterial Pressure, Cuff 78 mmHg SpO2 99 % 11/26/2023 12:20 EDT Temperature Temporal Artery 36.6 DegC Heart Rate Monitored 79 bpm Respiratory Rate Monitored 21 br/min Systolic Blood Pressure 101 mmHg Diastolic Blood Pressure 68 mmHg Blood Pressure Location Left arm Mean Arterial Pressure, Cuff 79 mmHg SpO2 97 % Pain Assessment: Controlled. General: Awake, Alert, Appropriate. Respiratory: Adequate air exchange. Cardiovascular: Stable, Normal peripheral perfusion. Neurological: Normal sensory function, Normal motor function. Assessment Anesthetic outcome No anesthetic complications noted. Adequate pain relief. able to void without difficulty, able to ambulate with assist, tolerating PO intake, no N/V. Review / Management Condition: Stable. Plan Transfer/Discharge: Transfer/Discharge Discharge when meets criteria ( To home ).[facility] Comment: Electronically Signed By: Apple Bianchi Jr, DO\.br\Date and Time Signed: 11/26/23 16:26 EDT 11-26-2023 Hospital Discharge instructions Patient Education 11/26/2023 12:36:36 Hiatal Hernia Hiatal Hernia A hiatal hernia occurs when part of the stomach slides above the muscle that separates the abdomen from the chest (diaphragm). A person can be born with a hiatal hernia (congenital), or it may develop over time. In almost all cases of hiatal hernia, only the top part of the stomach pushes through the diaphragm. Many people have a hiatal hernia with no symptoms. The larger the hernia, the more likely it is that you will have symptoms. In some cases, a hiatal hernia allows stomach acid to flow back into the tube that carries food from your mouth to your stomach (esophagus). This may cause heartburn symptoms. The development of heartburn symptoms may mean that you have a condition called gastroesophageal reflux disease (GERD). What are the causes? This condition is caused by a weakness in the opening (hiatus) where the esophagus passes through the diaphragm to attach to the upper part of the stomach. A person may be born with a weakness in thehiatus, or a weakness can develop over time. What increases the risk? This condition is more likely to develop in: Older people. Age is a major risk factor for a hiatal hernia, especially if you are over the age of50. women. People who are overweight. People who have frequent constipation. What are the signs or symptoms? Symptoms of this condition usually develop in the form of GERD symptoms. Symptoms include: Heartburn. Upset stomach (indigestion). Trouble swallowing. Coughing or wheezing. Wheezing is making high-pitched whistling sounds when you breathe. Sore throat. Chest pain. Nausea and vomiting. How is this diagnosed? This condition may be diagnosed during testing for GERD. Tests that may be done include: X-rays of your stomach or chest. An upper gastrointestinal (GI) series. This is an X-ray exam of your GI tract that is taken after you swallow a chalky liquid that shows up clearly on the X-ray. Endoscopy. This is a procedure to look into your stomach using a thin, flexible tube that has a tiny camera and light on the end of it. How is this treated? This condition may be treated by: Dietary and lifestyle changes to help reduce GERD symptoms. Medicines. These may include: ?Dzhu-wyz-qsydquv antacids. ?Medicines that make your stomach empty more quickly. ?Medicines that block the production of stomach acid (H2 blockers). ?Stronger medicines to reduce stomach acid (proton pump inhibitors). Surgery to repair the hernia, if other treatments are not helping. If you have no symptoms, you may not need treatment. Follow these instructions at home: Lifestyle and activity Do not use any products that contain nicotine or tobacco. These products include cigarettes, chewing tobacco, and vaping devices, such as e-cigarettes. If you need help quitting, ask your health careprovider. Try to achieve and maintain a healthy body weight. Avoid putting pressure on your abdomen. Anything that puts pressure on your abdomen increases the amount of acid that may be pushed up into your esophagus. ?Avoid bending over, especially after eating. ?Raise the head of your bed by putting blocks under the legs. This keeps your head and esophagus higher than your stomach. ?Do not wear tight clothing around your chest or stomach. ?Try not to strain when having a bowel movement, when urinating, or when lifting heavy objects. Eating and drinking Avoid foods that can worsen GERD symptoms. These may include: ?Fatty foods, like fried foods. ?[place] fruits, like oranges or lemon. ?Other foods and drinks that contain acid, like orange juice or tomatoes. ?Spicy food. ?Chocolate. Eat frequent small meals instead of three large meals a day. This helps prevent your stomach from getting too full. ?Eat slowly. ?Do not lie down right after eating. ?Do not eat 1 2 hours before bed. Do not drink beverages with caffeine. These include cola, coffee, cocoa, and tea. Do not drink alcohol. General instructions Take ojzm-wts-wkjahtf and prescription medicines only as told by your health care provider. Keep all follow-up visits. Your health care provider will want to check that any new prescribed medicines are helping your symptoms. Contact a health care provider if: Your symptoms are not controlled with medicines or lifestyle changes. You are having trouble swallowing. You have coughing or wheezing that will not go away. Your pain is getting worse. Your pain spreads to your arms, neck, jaw, teeth, or back. You feel nauseous or you vomit. Get help right away if: You have shortness of breath. You vomit blood. You have bright red blood in your stools. You have black, tarry stools. These symptoms may be an emergency. Get help right away. Call 911. Do not wait to see if the symptoms will go away. Do not drive yourself to the hospital. Summary A hiatal hernia occurs when part of the stomach slides above the muscle that separates the abdomen from the chest. A person may be born with a weakness in the hiatus, or a weakness can develop over time. Symptoms of a hiatal hernia may include heartburn, trouble swallowing, or sore throat. Management of a hiatal hernia includes eating frequent small meals instead of three large meals a day. Get help right away if you vomit blood, have bright red blood in your stools, or have black, tarry stools. This information is not intended to replace advice given to you by your health care provider. Make sure you discuss any questions you have with your health care provider. Document Revised: 04/08/2022 Document Reviewed: 04/08/2022 [employer] Patient Education 2023 [employer]. Follow Up Care 11/11/2023 15:23:41 With:Rachel HUSTON, Yohannes Orozco [facility], [facility] Address: [address] [place] [address] [address], [address] [place] [address]- [phone] When: Unknown Comments:Office will call Date and Time of Follow-up Appt. [facility] 10-03-2024 Evaluation + Plan noteExtracted from:Title: ANES Post-operative Note---GeneralAuthor:Apple Bianchi Jr, DO ADate:11/26/23 Plan Transfer/Discharge: Transfer/Discharge Discharge when meets criteria ( To home ). Extracted from:Title:ANES Pre-operative Note uthor:Apple Bianchi Jr, DO Date:11/26/23 Plan [place] [employer] Anesthesiologists (ASA) physical status classification: Class II. Anesthetic Preoperative Plan: Anesthesia General.[facility] 10-03-2024 NotePatient Education - Text Gastroenterology Hiatal Hernia A hiatal hernia occurs when part of the stomach slides above the muscle that separates the abdomen from the chest (diaphragm). A person can be born with a hiatal hernia (congenital), or it may develop over time. In almost all cases of hiatal hernia, only the top part of the stomach pushes through the diaphragm. Many people have a hiatal hernia with no symptoms. The larger the hernia, the more likely it is that you will have symptoms. In some cases, a hiatal hernia allows stomach acid to flow back into the tube that carries food from your mouth to your stomach (esophagus). This may cause heartburn symptoms. The development of heartburn symptoms may mean that you have a condition called gastroesophageal reflux disease (GERD). What are the causes? This condition is caused by a weakness in the opening (hiatus) where the esophagus passes through the diaphragm to attach to the upper part of the stomach. A person may be born with a weakness in thehiatus, or a weakness can develop over time. What increases the risk? This condition is more likely to develop in: ? Older people. Age is a major risk factor for a hiatal hernia, especially if you are over the age of 50. ? women. ? People who are overweight. ? People who have frequent constipation. What are the signs or symptoms? Symptoms of this condition usually develop in the form of GERD symptoms. Symptoms include: ? Heartburn. ? Upset stomach (indigestion). ? Trouble swallowing. ? Coughing or wheezing. Wheezing is making high-pitched whistling sounds when you breathe. ? Sore throat. ? Chest pain. ? Nausea and vomiting. How is this diagnosed? This condition may be diagnosed during testing for GERD. Tests that may be done include: ? X-rays of your stomach or chest. ? An upper gastrointestinal (GI) series. This is an X-ray exam of your GI tract that is taken afteryou swallow a chalky liquid that shows up clearly on the X-ray. ? Endoscopy. This is a procedure to look into your stomach using a thin, flexible tube that has a tiny camera and light on the end of it. How is this treated? This condition may be treated by: ? Dietary and lifestyle changes to help reduce GERD symptoms. ? Medicines. These may include: ? Mipd-wmn-lbjxrwl antacids. ? Medicines that make your stomach empty more quickly. ? Medicines that block the production of stomach acid (H2 blockers). ? Stronger medicines to reduce stomach acid (proton pump inhibitors). ? Surgery to repair the hernia, if other treatments are not helping. If you have no symptoms, you may not need treatment. Follow these instructions at home: Lifestyle and activity ? Do not use any products that contain nicotine or tobacco. These products include cigarettes, chewing tobacco, and vaping devices, such as e-cigarettes. If you need help quitting, ask your health care provider. ? Try to achieve and maintain a healthy body weight. ? Avoid putting pressure on your abdomen. Anything that puts pressure on your abdomen increases theamount of acid that may be pushed up into your esophagus. ? Avoid bending over, especially after eating. ? Raise the head of your bed by putting blocks under the legs. This keeps your head and esophagus higher than your stomach. ? Do not wear tight clothing around your chest or stomach. ? Try not to strain when having a bowel movement, when urinating, or when lifting heavy objects. Eating and drinking ? Avoid foods that can worsen GERD symptoms. These may include: ? Fatty foods, like fried foods. ? [place] fruits, like oranges or lemon. ? Other foods and drinks that contain acid, like orange juice or tomatoes. ? Spicy food. ? Chocolate. ? Eat frequent small meals instead of three large meals a day. This helps prevent your stomach fromgetting too full. ? Eat slowly. ? Do not lie down right after eating. ? Do not eat 1?2 hours before bed. ? Do not drink beverages with caffeine. These include cola, coffee, cocoa, and tea. ? Do not drink alcohol. General instructions ? Take gzoh-uqm-jfrrfng and prescription medicines only as told by your health care provider. ? Keep all follow-up visits. Your health care provider will want to check that any new prescribed medicines are helping your symptoms. Contact a health care provider if: ? Your symptoms are not controlled with medicines or lifestyle changes. ? You are having trouble swallowing. ? You have coughing or wheezing that will not go away. ? Your pain is getting worse. ? Your pain spreads to your arms, neck, jaw, teeth, or back. ? You feel nauseous or you vomit. Get help right away if: ? You have shortness of breath. ? You vomit blood. ? You have bright red blood in your stools. ? You have black, tarry stools. These symptoms may be an emergency. Get help right away. Call 911. ? Do not wait to see if the symptoms will go (more content not included)... [facility] Evaluation + Plan noteExtracted from: Title:ED NoteAuthor:Alex Correia DODate:11/09/23 Gastritis (K29.70: Gastritis , unspecified, without bleeding) Vomiting (R11.10: Vomiting, unspecified) Orders: dicyclomine, 20 mg = 2 mL, Injection, IntraMuscular, Once, Stop date 11/09/23 11:21:00 EDT, STAT, Start date 11/09/23 11:21:00 EDT, 11/09/23 11:21:00 EDT lorazepam, 1 mg = 0.5 mL, Injection, IV Push, Once, Stop date 11/09/23 9:27:00 EDT, STAT, Start date 11/09/23 9:27:00 EDT, 11/09/23 9:27:00 EDT omeprazole, 20 mg = 1 cap(s), Oral, Daily, # 30 cap(s), Refills(s) 0, Pharmacy: [facility]/pharmacy #[id number],160, cm, 11/09/23 9:24:00 EDT, Height/Length Dosing, 60, kg, 11/09/23 9:24:00 EDT, Weight Dosing ondansetron, 4 mg = 2 mL, Injection, IV Push, Once, Stop date 11/09/23 9:27:00 EDT, STAT, Start date 11/09/23 9:27:00 EDT, 11/09/23 9:27:00 EDT ondansetron, 4 mg = 1 tab(s), Oral, q6hr, X 3 day(s), # 10 tab(s), Refills(s) 0, Pharmacy: [facility]/pharmacy #[id number], 160, cm, 11/09/23 9:24:00 EDT, Height/Length Dosing, 60, kg, 11/09/23 9:24:00 EDT, Weight Dosing ondansetron, 4 mg = 2 mL, Injection, IV Push, Once, Stop date 11/09/23 10:28:00 EDT, STAT, Start date 11/09/23 10:28:00 EDT, 11/09/23 10:28:00 EDT pantoprazole, 40 mg = 10 mL, Injection, IV Push, Once, Stop date 11/09/23 9:27:00 EDT, STAT, Start date 11/09/23 9:27:00 EDT, 11/09/23 9:27:00 EDT promethazine 25 mg + Sodium Chloride 0.9% intravenous solution 50 mL, Injection, IV Piggyback, Once, Stop date 11/09/23 10:28:00 EDT, STAT, Start date 11/09/23 10:28:00 EDT, 153 mL/hr, Infuse over 20minute(s) Sodium Chloride 0.9% intravenous solution, 1,000 mL, Soln-IV, IV, Once, Stop date 11/09/23 9:27:00 EDT, STAT, Start date 11/09/23 9:27:00 EDT, Infuse over 61, minute(s) Sodium Chloride 0.9% intravenous solution 1,000 mL, 1,000 mL, IV, 1,000 mL/hr, STAT, Start date 11/09/23 10:28:00 EDT, 1 hour(s), Total volume (mL): 1,000, 60 kg, 1.63, m2 Basic Metabolic Panel Beta hCG Qual CBC w/ Auto Diff CT Abdomen/Pelvis w/ Contrast Drug Screen Urine eGFR Extra Blue Tube Hepatic Function Panel Lipase Level Mononucleosis Screen UA with Cult Rflx Urine Culture Future Appointments Appointment Date:11/11/2023 02:45:00 PM Scheduled Provider:Rachel HUSTON, Yohannes Orozco [facility] Type:[facility] Follow Up Diagnostic Tests Pending * Urine Culture 11/09/23 [facility] 09-16-2024 Hospital Discharge instructions Follow Up Care 11/09/2023 09:11:44 With:Marito Hernandez Address: [address] [place] [address] [phone] Business (1) When:11/12/2023 12:44:04 With:XXXX NONE Address: [place] When:Within 3 Day(s) [facility] 09-15-2024 Hospital Discharge instructions Patient Education 11/08/2023 06:04:48 Muscle Cramps and Spasms Muscle Cramps and Spasms Muscle cramps and spasms occur when a muscle or muscles tighten and you have no control over this tightening (involuntary muscle contraction). They are a common problem that can happen in any muscle.The most common place is in the calf muscles of the leg. There are a few ways that muscle cramps and spasms differ: Muscle cramps are painful. They come and go and may last for a few seconds or up to 15 minutes. Muscle cramps are often more forceful and last longer than muscle spasms. Muscle spasms may or may not be painful. They may last just a few seconds or last much longer. Certain conditions, such as diabetes or Parkinson's disease, can make you more likely to have cramps or spasms. But in most cases, cramps and spasms are not caused by other conditions. Common causes include: Overexertion. This is when you do more physical work or exercise than your body is ready for. Overuse from doing the same movements too many times. Staying in one position for too long. Improper preparation, form, or technique when playing a sport or doing an activity. Not enough water or other fluids in your body (dehydration). Other causes may include: Injury. Side effects of some medicines. Too few salts and minerals in your body (electrolytes), such as potassium and calcium. This could happen if you are taking water pills (diuretics) or if you are . In many cases, the cause of muscle cramps or spasms is not known. Follow these instructions at home: Eating and drinking Drink enough fluid to keep your pee (urine) pale yellow. This can help prevent cramps or spasms. Eat a healthy diet that includes a lot of nutrients to help your muscles work. A healthy diet includes fruits and vegetables, lean protein, whole grains, and low-fat or nonfat dairy products. Managing pain and stiffness Try to massage, stretch, and relax the affected muscle. Do this for a few minutes at a time. If told, put ice on the muscles. This may help if you are sore or have pain after a cramp or spasm. ?Put ice in a plastic bag. ?Place a towel between your skin and the bag. ?Leave the ice on for 20 minutes, 2 3 times a day. If told, apply heat to tight or tense muscles as often as told by your health care provider. Use the heat source that your provider recommends, such as a moist heat pack or a heating pad. ?Place a towel between your skin and the heat source. ?Leave the heat on for 20 30 minutes. If your skin turns bright red, remove the ice or heat right away to prevent skin damage. The risk of damage is higher if you cannot feel pain, heat, or cold. Take hot showers or baths to help relax tight muscles. General instructions If you are having cramps often, avoid intense exercise for a few days. Take wksi-cco-azcrhaf and prescription medicines only as told by your provider. Watch for any changes in your symptoms. Contact a health care provider if: Your cramps or spasms get more severe or happen more often. Your cramps or spasms do not get better over time. This information is not intended to replace advice given to you by your health care provider. Make sure you discuss any questions you have with your health care provider. Document Revised: 09/30/2022 Document Reviewed: 09/30/2022 [employer] Patient Education 2023 [employer] 11/08/2023 06:04:48 Hypokalemia Hypokalemia Hypokalemia means that the amount of potassium in the blood is lower than normal. Potassium is a mineral (electrolyte) that helps regulate the amount of fluid in the body. It also stimulates muscle tightening (contraction) and helps nerves work properly. Normally, most of the body's potassium is inside cells, and only a very small amount is in the blood. Because the amount in the blood is so small, minor changes to potassium levels in the blood can be life-threatening. What are the causes? This condition may be caused by: Antibiotic medicine. Diarrhea or vomiting. Taking too much of a medicine that helps you have a bowel movement (laxative)can cause diarrhea and lead to hypokalemia. Chronic kidney disease (CKD). Medicines that help the body get rid of excess fluid (diuretics). Eating disorders, such as anorexia or bulimia. Low magnesium levels in the body. Sweating a lot. What are the signs or symptoms? Symptoms of this condition include: Weakness. Constipation. Fatigue. Muscle cramps. Mental confusion. Skipped heartbeats or irregular heartbeat (palpitations). Tingling or numbness. How is this diagnosed? This condition is diagnosed with a blood test. How is this treated? This condition may be treated by: Taking potassium supplements. Adjusting the medicines that you take. Eating more foods that contain a lot of potassium. If your potassium level is very low, you may need to get potassium through an IV and be monitored in the hospital. Follow these instructions at home: Eating and drinking Eat a healthy diet. A healthy diet includes fresh fruits and vegetables, whole grains, healthy fats, and lean proteins. If told, eat more foods that contain a lot of potassium. These include: ?Nuts, such as peanuts and pistachios. ?Seeds, such as sunflower seeds and pumpkin seeds. ?Peas, lentils, and noland beans. ?Whole grain and bran cereals and breads. ?Fresh fruits and vegetables, such as apricots, avocado, bananas, cantaloupe, kiwi, oranges, tomatoes, asparagus, and potatoes. ?Juices, such as orange, tomato, and prune. ?Lean meats, including fish. ?Milk and milk products, such as yogurt. General instructions Take jxkt-grx-byxwkxe and prescription medicines only as told by your health care provider. This includes vitamins, natural food products, and supplements. Keep all follow-up visits. This is important. Contact a health care provider if: You have weakness that gets worse. You feel your heart pounding or racing. You vomit. You have diarrhea. You have diabetes and you have trouble keeping your blood sugar in your target range. Get help right away if: You have chest pain. You have shortness of breath. You have vomiting or diarrhea that lasts for more than 2 days. You faint. These symptoms may be an emergency. Get help right away. Call 911. Do not wait to see if the symptoms will go away. Do not drive yourself to the hospital. Summary Hypokalemia means that the amount of potassium in the blood is lower than normal. This condition is diagnosed with a blood test. Hypokalemia may be treated by taking potassium supplements, adjusting the medicines that you take, or eating more foods that are high in potassium. If your potassium level is very low, you may need to get potassium through an IV and be monitored in the hospital. This information is not intended to replace advice given to you by your health care provider. Make sure you discuss any questions you have with your health care provider. Document Revised: 10/24/2021 Document Reviewed: 10/24/2021 [employer] Patient Education 2023 [employer]. Follow Up Care 11/07/2023 23:22:28 With:Mateus Rodriguez Address: [place] [address] Business (1) When:11/11/2023 05:15:00 [facility] 09-15-2024 NoteED Patient Education Note Gastroenterology Hypokalemia Hypokalemia means that the amount of potassium in the blood is lower than normal. Potassium is a mineral (electrolyte) that helps regulate the amount of fluid in the body. It also stimulates muscle tightening (contraction) and helps nerves work properly. Normally, most of the body's potassium is inside cells, and only a very small amount is in the blood. Because the amount in the blood is so small, minor changes to potassium levels in the blood can be life-threatening. What are the causes? This condition may be caused by: ? Antibiotic medicine. ? Diarrhea or vomiting. Taking too much of a medicine that helps you have a bowel movement (laxative) can cause diarrhea and lead to hypokalemia. ? Chronic kidney disease (CKD). ? Medicines that help the body get rid of excess fluid (diuretics). ? Eating disorders, such as anorexia or bulimia. ? Low magnesium levels in the body. ? Sweating a lot. What are the signs or symptoms? Symptoms of this condition include: ? Weakness. ? Constipation. ? Fatigue. ? Muscle cramps. ? Mental confusion. ? Skipped heartbeats or irregular heartbeat (palpitations). ? Tingling or numbness. How is this diagnosed? This condition is diagnosed with a blood test. How is this treated? This condition may be treated by: ? Taking potassium supplements. ? Adjusting the medicines that you take. ? Eating more foods that contain a lot of potassium. If your potassium level is very low, you may need to get potassium through an IV and be monitored in the hospital. Follow these instructions at home: Eating and drinking ? Eat a healthy diet. A healthy diet includes fresh fruits and vegetables, whole grains, healthy fats, and lean proteins. ? If told, eat more foods that contain a lot of potassium. These include: ? Nuts, such as peanuts and pistachios. ? Seeds, such as sunflower seeds and pumpkin seeds. ? Peas, lentils, and noland beans. ? Whole grain and bran cereals and breads. ? Fresh fruits and vegetables, such as apricots, avocado, bananas, cantaloupe, kiwi, oranges, tomatoes, asparagus, and potatoes. ? Juices, such as orange, tomato, and prune. ? Lean meats, including fish. ? Milk and milk products, such as yogurt. General instructions ? Take apwi-bax-dszohrm and prescription medicines only as told by your health care provider. This includes vitamins, natural food products, and supplements. ? Keep all follow-up visits. This is important. Contact a health care provider if: ? You have weakness that gets worse. ? You feel your heart pounding or racing. ? You vomit. ? You have diarrhea. ? You have diabetes and you have trouble keeping your blood sugar in your target range. Get help right away if: ? You have chest pain. ? You have shortness of breath. ? You have vomiting or diarrhea that lasts for more than 2 days. ? You faint. These symptoms may be an emergency. Get help right away. Call 911. ? Do not wait to see if the symptoms will go away. ? Do not drive yourself to the hospital. Summary ? Hypokalemia means that the amount of potassium in the blood is lower than normal. ? This condition is diagnosed with a blood test. ? Hypokalemia may be treated by taking potassium supplements, adjusting the medicines that you take, or eating more foods that are high in potassium. ? If your potassium level is very low, you may need to get potassium through an IV and be monitoredin the hospital. This information is not intended to replace advice given to you by your health care provider. Make sure you discuss any questions you have with your health care provider. Document Revised: 10/24/2021 Document Reviewed: 10/24/2021 Elsevier Patient Education ? 2023 [employer] Inc. Orthopedics Muscle Cramps and Spasms Muscle cramps and spasms occur when a muscle or muscles tighten and you have no control over this tightening (involuntary muscle contraction). They are a common problem that can happen in any muscle.The most common place is in the calf muscles of the leg. There are a few ways that muscle cramps and spasms differ: ? Muscle cramps are painful. They come and go and may last for a few seconds or up to 15 minutes. Muscle cramps are often more forceful and last longer than muscle spasms. ? Muscle spasms may or may not be painful. They may last just a few seconds or last much longer. Certain conditions, such as diabetes or Parkinson's disease, can make you more likely to have cramps or spasms. But in most cases, cramps and spasms are not caused by other conditions. Common causes include: ? Overexertion. This is when you do more physical work or exercise than your body is ready for. ? Overuse from doing the same movements too many times. ? Staying in one position for too long. ? Improper preparation, form, or technique when playing a sport or doing an activity. ? Not enough water or (more content not included)...[facility] 11-07-2023 Evaluation + Plan noteExtracted from:Title:ED NoteAuthor:Ritesh Pascal DO.Date:11/07/23 Hypokalemia (E87.6: Hypokale tere) Muscle spasm (M62.838: Other muscle spasm) Orders: diphenhydrAMINE, 25 mg = 0.5 mL, Injection, IV Push, Once, Stop date 11/08/23 2:55:00 EDT, STAT, Start date 11/08/23 2:55:00 EDT, 11/08/23 2:55:00 EDT hydrOXYzine, 25 mg = 1 tab(s), Tab, Oral, Once, Stop date 11/07/23 23:51:00 EDT, STAT, Start date 11/07/23 23:51:00 EDT, 11/07/23 23:51:00 EDT Lactated Ringers Injection, 1,000 mL, Soln-IV, IV, Once, Stop date 11/07/23 23:50:00 EDT, STAT, Start date 11/07/23 23:50:00 EDT, mL/hr, Infuse over 61, minute(s) magnesium sulfate + Dextrose 5% in Water intravenous solution 100 mL, 1 gram = 100 mL, Soln-IV, IV Piggyback, Once, Stop date 11/07/23 23:50:00 EDT, STAT, Start date 11/07/23 23:50:00 EDT, 300 mL/hr,Infuse over 20 minute(s), 11/07/23 23:50:00 EDT metoclopramide, 10 mg = 2 mL, Injection, IV Push, Once, Stop date 11/08/23 2:55:00 EDT, STAT, Startdate 11/08/23 2:55:00 EDT, 11/08/23 2:55:00 EDT ondansetron, 4 mg = 2 mL, Injection, IV, Once, Stop date 11/08/23 0:08:00 EDT, Start date 11/08/23 0:08:00 EDT ondansetron, 4 mg = 1 tab(s), Oral, q8hr, PRN Nausea/Vomiting, first line nausea, # 16 tab(s), Refills(s) 0, Pharmacy: [facility]/pharmacy #[id number], 160, cm, 11/07/23 23:38:00 EDT, Height/Length Dosing, 60, kg, 11/07/23 23:38:00 EDT, Weight Dosing orphenadrine, 60 mg = 2 mL, Injection, IV Push, Once, Stop date 11/08/23 0:55:00 EDT, STAT, Start date 11/08/23 0:55:00 EDT, 11/08/23 0:55:00 EDT potassium chloride, 40 mEq = 2 tab(s), Tab-ER, Oral, Once, Stop date 11/08/23 0:52:00 EDT, STAT, Start date 11/08/23 0:52:00 EDT, 11/08/23 0:52:00 EDT potassium chloride + Generic Diluent 100 mL, 20 mEq = 100 mL, IV Piggyback, q2hr for 2 dose(s), Stop date 11/08/23 4:51:00 EDT, STAT, Start date 11/08/23 0:52:00 EDT, 50 mL/hr, Infuse over 2 hour(s),11/08/23 0:52:00 EDT promethazine, 12.5 mg = 1 tab(s), Oral, q8hr, PRN as needed for nausea/vomiting, second line nausea, # 8 tab(s), Refills(s) 0, Pharmacy: [facility]/pharmacy #[id number], 160, cm, 11/07/23 23:38:00 EDT, Height/Length Dosing, 60, kg, 11/07/23 23:38:00 EDT, Weight Dosing promethazine 12.5 mg + Sodium Chloride 0.9% intravenous solution 50 mL, Injection, IV Piggyback, Once, Stop date 11/08/23 1:06:00 EDT, STAT, Start date 11/08/23 1:06:00 EDT, 151.5 mL/hr, Infuse over 20 minute(s) Basic Metabolic Panel CBC w/ Auto Diff ECG 12 Lead Adult ED Cardiac Monitoring eGFR Hepatic Function Panel Lipase Level Magnesium Level Oxygen Saturation Oxygen Therapy PT & PTT Rapid [place] [place] Saline Lock Insert Troponin 0 Hr. XR Chest Single View [facility] 02-15-2024 History of Present illness Narrative* ASHA Redmond - 04/09/2023 9:40 AM EST Reason for Appointment: Patient ID: Ruth Grossman is a 27 y.o. female who presents [...] Documented by ASHA Redmond on behalf of: Clarke Rebolledo DO documented in this encounterResearch Medical [id number] Hospital Discharge instructions Patient Education 01/02/2023 13:45:55 First Trimester [...] thickening or thinning of your hair or changesin texture. Health changes You may feel nauseous, [...] and vegetables, whole grains, good sources of proteinsuch as meat, eggs, or tofu, and low-fat [...] contain nicotine or tobacco, such as cigarettes, e- cigarettes, and chewing tobacco. If you need help quitting, ask your health care provider. Avoid cat litter boxes and soil used by cats. These carry germs that can cause defects in thebaby and possibly loss of the unborn baby (fetus) by miscarriage or stillbirth. General instructions During routine visits in the first trimester, your health care provider will do a physicalexam, perform necessary tests, and ask you how things are going. Keep all follow-up visits. This isimportant. Ask for help if you have counseling or nutritional needs during . Your health care provider can offer advice or refer you to specialists for help with various needs. Schedule a dentist appointment. At home, brush your teeth with a soft toothbrush. Floss gently. Write down your questions. Take them to your visits. Where to find more information [place]: americanpregnancy.org [place] [employer]: acog.org/en/Womens%20Health/ Office on Women's Health: womenshealth.gov/ Contact a [...] contain nicotine or tobacco, such as cigarettes, e- cigarettes, and chewing tobacco. If you need help quitting, ask your health care provider. Keep all follow-up visits. This is important. This information is not intended to replace advice given to you by your health care provider. Make sure you discuss any questions you have with your health care provider. Document Revised: 07/18/2020 Document Reviewed: 05/24/2020 [employer] Patient Education 2022 [employer]. 01/02/2023 13:45:55 Diarrhea, Adult Diarrhea, Adult Diarrhea [...] oral rehydration solution (ORS). This is an eycz-wug-fqbugdo medicine that helps return your body to its normal balance of nutrients and water. It is found at pharmacies and retail stores. Drink plenty of fluids, such as water, ice chips, diluted fruit juice, and low- calorie sports drinks. You can drink milk also, if desired. Avoid drinking fluids that contain a lot of sugar or caffeine, such as energy drinks, sports drinks, and soda. Eat bland, hemk-rj-uyzmld foods in small amounts as you are able. These foods include bananas, applesauce, rice, lean meats, toast, and crackers. Avoid alcohol. Avoid spicy or fatty foods. Medicines Take tnsp-doj-queutli and prescription medicines only as told by your health care provider. If you were prescribed an antibiotic medicine, take it as told by your health care provider. Do notstop using the antibiotic even if you start to feel better. General instructions Wash your hands often using soap and water. If soap and water are not available, use a hand signal maintainer. Others in the household should wash their [...] If soap and water are not available, usehand signal maintainer. Contact a health care provider if your diarrhea gets worse or you have new symptoms. Get help right away if you have signs of dehydration. This information is not intended to replace advice given to you by your health care provider. Make sure you discuss any questions you have with your health care provider. Document Revised: 08/21/2021 Document Reviewed: 08/21/2021 [employer] Patient Education 2022 [employer]. 01/02/2023 13:45:55 Nausea and Vomiting, Adult Nausea and Vomiting, Adult Nausea is the feeling that you have an upset stomach or that you are about to vomit. As nausea getsworse, it can lead to vomiting. Vomiting is when stomach contents forcefully come out of your mouthas a result of nausea. Vomiting can make [...] water added (diluted fruit juice). Eat bland, cwcr-nh-oxgrzz foods in small amounts as you are able. These foods include bananas, applesauce, rice, lean meats, toast, and crackers. Avoid fluids that contain a lot of sugar or caffeine, such as energy drinks, sports drinks, and soda. Avoid alcohol. Avoid spicy or fatty foods. General instructions Take qsdk-lyu-ftfweyx and prescription medicines only as told by your health care provider. Drink enough fluid to keep your urine pale yellow. Wash your hands often using soap and water for at least 20 seconds. If soap and water are not available, use hand signal maintainer. Make sure that everyone in your household [...] you are about to vomit. As nausea getsworse, it can lead to vomiting. Vomiting can make you feel weak and cause you to become dehydrated. Follow instructions from your health care provider about eating and drinking to prevent dehydration. Take eyqh-alm-fsjcofk and prescription medicines only as told by [...] provider. Document Revised: 08/16/2021 Document Reviewed: 08/16/2021 [employer] Patient Education 2022 [employer]. 01/02/2023 13:45:55 Abdominal Pain, Adult Abdominal Pain, [...] Follow these instructions at home: Medicines Take mqeu-lip-yyutldu and prescription medicines only as told by [...] Watch your condition for any changes. Take myul-uzg-qwpafym and prescription medicines only as told by [...] provider. Document Revised: 03/30/2020 Document Reviewed: 06/20/2019 [employer] Patient Education 2022 [employer]. Follow Up Care 01/02/2023 08:54:27 With:Clarke REBOLLEDO Address: [address] , [place] [address]- Business (1) When:01/05/2023 13:27:46 Comments:Make sure to follow-up with Dr. Rebolledo for your . Follow-up with Dr. Cuellar for the belly pain. Return to the emergency room if the abdominal pain recurs, vomiting recurs, vaginal bleedingor any new symptoms. With:Patricia Murrieta Address:Unknown When:01/05/2023 13:27:38 [facility]11-10-2023 Evaluation + Plan noteExtracted from: Title:ED NoteAuthor:Amado Rodriguez M.D. HDate:01/02/23 1. Abdominal pain (R10.9: Un specified abdominal [...] QID, # 20 cap(s), Refills(s) 0, Pharmacy: [facility]/pharmacy #[id number], 160.1, cm, 01/02/23 9:00:00 EST, Height/Length Dosing, 58.8, kg, 01/02/23 9:00:00 EST, Weight Dosing famotidine, 20 mg = 2 mL, Soln-IV, IV Push, Once, Stop date 01/02/23 10:16:00 EST, STAT, Start date01/02/23 10:16:00 EST, 01/02/23 10:16:00 EST nalbuphine, 5 [...] PRN Nausea/Vomiting, # 12 tab(s), Refills(s) 0, Pharmacy:[facility]/pharmacy #[id number], 160.1, cm, 01/02/23 9:00:00 EST, Height/Length [...] US Gallbladder US 1st Trimester US Transvaginal [facility]04-29-2023 Evaluation + Plan noteExtracted from: Title:ED NoteAuthor:Ritesh Pascal DODate:06/21/22 Abdominal pain, acute (R10.9 : Unspecified abdominal pain) Orders: HYDROmorphone, 0.5 mg = 0.5 mL, Injection, IV Push, Once, Stop date 06/21/22 0:14:00 EDT, STAT, Start date 06/21/22 0:14:00 EDT, 06/21/22 0:14:00 EDT ketorolac, 15 mg = 1 mL, Injection, IV Push, Once, Stop date 06/21/22 1:08:00 EDT, STAT, Start date06/21/22 1:08:00 EDT, 06/21/22 1:08:00 EDT naproxen, 500 mg = 1 tab(s), Oral, BID, PRN Pain, # 14 tab(s), Refills(s) 0, [id number], cm, 06/20/22 23:30:00 EDT, Height/Length Dosing, [...] PRN Nausea/Vomiting, # 16 tab(s), Refills(s) 0, Pharmacy:[facility]/pharmacy #[id number], 160, cm, 06/20/22 23:30:00 EDT, Height/Length Dosing, 55, kg, 06/20/22 23:30:00EDT, Weight Dosing promethazine, 12.5 mg = 0.5 [...] mL, Soln-IV, IV, Once, Stop date 06/20/22 23:38:00EDT, STAT, Start date 06/20/22 23:38:00 EDT, Infuse over 61, minute(s) Automated Diff Basic Metabolic Panel Beta hCG Qual CBC w/ Auto Diff CT Abdomen/Pelvis w/ Contrast eGFR Hepatic Function Panel Lipase Level Saline Lock Insert UA With Cult Reflex US Pelvis Non-OB Complete [facility]04-29-2023 Hospital Discharge instructions Patient Education 06/21/2022 05:06:52 Abdominal Pain, [...] Follow these instructions at home: Medicines Take hxib-wde-uzeyvms and prescription medicines only as told by [...] Watch your condition for any changes. Take eymt-qes-kjbovxc and prescription medicines only as told by [...] provider. Document Revised: 03/30/2020 Document Reviewed: 06/20/2019 [employer] Patient Education 2022 [employer]. Follow Up Care 06/20/2022 23:21:21 With:Keith GARCIA Address: [address] [place] [address] Business (1) When:06/24/2022 [facility] Future Appointments Appointment Date:11/26/2023 12:00:00 PM Scheduled Provider: Location:[facility] Appointment Type:Surgery FT [facility] Evaluation note* Diagnosis Second trimester state, incidental Diabetes mellitus screening Screening for diabetes mellitus documented in this encounter [facility]* Diagnosis Abnormal menstrual cycle PCOS (polycystic ovarian syndrome) Polycystic ovaries Cervicitis and endocervicitis documented in this encounter [facility] Narrative No data available for this section [facility] No data available for this section [facility] Progress note No data available for this section [facility] Summary Purpose Family History No Family History Records Found No data available for this section No Family History Records FoundNo Family History Records FoundNo Family History Records FoundNo Family History Records FoundNo Family History Records FoundNo Family History Records FoundNo Family History Records FoundNo Family History Records FoundNo Family History Records FoundNo Family History Records FoundNo Family History Records FoundNo Family History Records FoundNo Family History Records FoundNo Family History Records FoundNo Family History Records FoundNo Family History Records FoundNo Family History Records FoundNo Family History Records FoundNo Family History Records FoundNo Family History Records Found No data available for this section No Family History Records FoundNo Family History Records Found No data available for this section No data available for this section No data available for this section No data available for this section No Family History Records FoundNo Family History Records FoundNo Family History Records FoundNo Family History Records FoundNo Family History Records FoundNo Family History Records FoundNo Family History Records FoundNo Family History Records FoundNo Family History Records FoundNo Family History Records [...] Records FoundNo Advanced Directives Records FoundNo Advanced Directiv es Records FoundNo Advanced Directives Records FoundNo Advanced Directives Records Found Additional Source Comments INFORMATION SOURCE (unrecogn ized section and content) DATE CREATED AUTHOR 11/24/2021 [facility] DATE CREATED AUTHOR AUTHOR'S ORGANIZ ATION 11/09/2023 [facility] DATE CREATED AUTHOR AUTHOR'S ORGANIZ ATION 11/10/2023 [facility] DATE CREATED AUTHOR AUTHOR'S ORGANIZ ATION 11/11/2023 [facility] DATE CREATED AUTHOR AUTHOR'S ORGANIZ ATION 11/12/2023 [facility] DATE CREATED AUTHOR AUTHOR'S ORGANIZ ATION 11/19/2023 [facility] DATE CREATED AUTHOR AUTHOR'S ORGANIZ ATION 12/01/2023 [facility] DATE CREATED AUTHOR AUTHOR'S ORGANIZ ATION 12/05/2023 [facility] DATE CREATED AUTHOR AUTHOR'S ORGANIZ ATION 12/07/2023 [facility] DATE CREATED AUTHOR AUTHOR'S ORGANIZ ATION 05/09/2024 [facility] DATE CREATED AUTHOR AUTHOR'S ORGANIZ ATION 05/13/2024 [facility] DATE CREATED AUTHOR AUTHOR'S ORGANIZ ATION 07/04/2024 [facility] EPIC Patient Care team informatio n (unrecognized section and content) Personnel Name: JOSE Keith CABRERA Address: Address: [address] [place] [address]- Personnel Name: NONE, XXXX Address: Address: [facility] Personnel Name: NONE, XXXX Address: Address: [facility] Personnel Name: NONE, XXXX Address: Address: [facility] Personnel Name: NONE, XXXX Address: Address: [facility] Personnel Name: NONE, XXXX Address: Address: [facility] Personnel Name: Myrna Tenorio MD Address: Address: [address] [place] [address] [place] [phone] Reason for Visit (unrecogniz ed section and content) ReasonCommentsRoutine VisitReasonCommentsMenstrual Problem FOR RECORDS PERTAINING TO PATIENTS WHO ARE [...] BE BASED ON THE PRIMARY CLINICAL RECORDS. [employer] provides no warranty or guarantee of the accuracy or completeness of information in this document.
[2025-01-09 09:23] LABS: Hematocrit 38.4 % (36.0-48.0); Hemoglobin 13.4 g/dL (12.0-16.0); Immature Granulocytes Abs Auto 0.02 10^3/uL (0.00-0.03); Immature Granulocytes Pct Auto 0.2 % (0.0-0.5); Lymphocytes Absolute Auto 1.3 10^3/uL (1.2-3.8); Mean Corpuscular HGB Conc 34.9 g/dL (29.9-35.2); Mean Corpuscular Hemoglobin 30.9 pg (26.7-34.0); Mean Corpuscular Volume 88.5 fL (81.0-99.0); Platelet Count 280 10^3/uL (150-450); Red Blood Count 4.34 10^6/uL (4.20-5.40); White Blood Count 10.3 10^3/uL (4.0-11.0)
[2025-01-09] MEDS: DICYCLOMINE HCL 20 MG/2 ML VIAL IM (09:30)
[2025-01-09] MEDS: KETOROLAC TROMETHAMINE 30 MG/ML VIAL 15 MG IVP (09:30)
--- NOTE | 2025-01-09 09:37 | ED.NAVMDI1 ---
HPI - Nausea/Vomiting/Diarrhea General Chief complaint: Nausea/Vomiting/Diarrhea Stated complaint: ABDDOMINAL PAIN, VOMITING, DIARRHEA Time Seen by Provider: 01/09/25 08:46 Source: patient and family Mode of arrival: walk-in Limitations: no limitations History of Present Illness HPI Narrative: 29-year-old female presenting to the ER with nausea vomiting and diarrhea that started at 3:30 AM this morning. Patient mentioned that she usually takes citalopram and she stopped taking that for the last 48 hours because she forgot about it for the last 2 days but she started taking it at 9 PM. He before the symptoms started The patient denies any specific abdominal pain although she pointed to the left side mentioned that she had no fever no chills no exposure to anybody with similar symptoms Related Data Home Medications ?Medication ?Instructions ?Recorded ?Confirmed citalopram 20 mg tablet 20 mg PO DAILY 01/09/25 01/09/25 Previous Rx's ?Medication ?Instructions ?Recorded famotidine 20 mg tablet (Pepcid) 20 mg PO BID #20 tabs 01/09/25 promethazine 25 mg tablet 25 mg PO TID PRN nausea and 01/09/25 vomiting #20 tabs Allergies Allergy/AdvReac Type Severity Reaction Status Date / Time No Known Drug Allergies Allergy Verified 01/09/25 08:37 Review of Systems ROS Status of ROS 10 or more systems reviewed and unremarkable except as noted in history and below PFSH PFSH Social History Little interest or pleasure in doing things: not at all Feeling down, depressed, or hopeless: not at all Exam Narrative Exam Narrative: Nurses notes and vital signs reviewed and patient is not hypoxic. General: Well-appearing and some distress due to pain Skin: Warm, dry, no pallor noted. No rash. Head: Normocephalic, atraumatic. Neck: Supple, non-tender. Cardiovascular: Regular Rate and Rhythm without murmur, gallop or rub. Respiratory: No accessory muscle use or respiratory distress. Lungs are clear to auscultation, no wheezing, rales or rhonchi Chest Wall: no tenderness Musculoskeletal: normal ROM, no calf or popliteal tenderness, no lower extremity edema/swelling GI: Abdomen is soft, non-distended. Normal bowel sounds. No masses appreciated. No tenderness to palpation. No rebound, guarding, or rigidity noted. Neurological: A&O x4. No cranial nerve dysfunction observed. Constitutional Vital Signs, click to edit/add: Last Vital Signs Temp 97.8 F 01/09/25 08:38 Pulse 70 01/09/25 08:38 Resp 20 01/09/25 08:38 BP 120/82 01/09/25 08:38 Pulse Ox 99 01/09/25 08:38 O2 Del Method Room Air 01/09/25 08:38 Course Vital Signs Vital signs: Vital Signs Temperature 97.8 F 01/09/25 08:38 Pulse Rate 70 01/09/25 08:38 Respiratory Rate 20 01/09/25 08:38 Blood Pressure 120/82 01/09/25 08:38 Pulse Oximetry 99 01/09/25 08:38 Oxygen Delivery Method Room Air 01/09/25 08:38 Temperature 97.8 F 01/09/25 08:38 Pulse Rate 70 01/09/25 08:38 Respiratory Rate 20 01/09/25 08:38 Blood Pressure 120/82 01/09/25 08:38 Pulse Oximetry 99 01/09/25 08:38 Oxygen Delivery Method Room Air 01/09/25 08:38 MDM - Nausea/Vomiting/Diarrhea MDM Narrative Medical decision making narrative: The patient presentation with nausea vomiting and diarrhea could be secondary to viral gastroenteritis or also could be secondary to withdrawal from SSRI The patient's symptoms are mild her blood workup showed no acute pathology except for some mild hypokalemia of 3.4 The patient provided with 1 L IV fluid her urine showed no UTI The patient initially was not responding to Zofran and Compazine was better after which she was still able to tolerate p.o. She was discharged home with supportive care with Phenergan as well as Pepcid With instruction to come back to the ER in case of any new symptoms or concerns Patient CBC showed no leukocytosis The patient to follow-up with the primary care within 2 to 3 days and to come back to the ER in case of any worsening of the current symptoms or any new symptoms or concerns Lab Data Labs: Lab Results 01/09/25 01/09/25 Range/Units 09:12 10:15 WBC 10.3 (4.0-11.0) 10^3/uL RBC 4.34 (4.20-5.40) 10^6/uL Hgb 13.4 (12.0-16.0) g/dL Hct 38.4 (36.0-48.0) % MCV 88.5 (81.0-99.0) fL MCH 30.9 (26.7-34.0) pg MCHC 34.9 (29.9-35.2) g/dL RDW 11.2 (11.0-15.0) % Plt Count 280 (150-450) 10^3/uL MPV 9.4 L (9.5-13.5) fL Neut % (Auto) 82.6 H (43.0-75.0) % Lymph % (Auto) 12.9 L (20.5-60.0) % Wirt % (Auto) 3.2 (1.7-12.0) % Eos % (Auto) 0.4 L (0.9-7.0) % Baso % (Auto) 0.7 (0.2-2.0) % Neut # (Auto) 8.5 H (1.4-6.5) 10^3/uL Lymph # (Auto) 1.3 (1.2-3.8) 10^3/uL Wirt # (Auto) 0.3 (0.3-0.8) 10^3/uL Eos # (Auto) 0.0 (0.0-0.7) 10^3/uL Baso # (Auto) 0.1 (0.0-0.1) 10^3/uL Abs Immat Gran (auto) 0.02 (0.00-0.03) 10^3/uL Imm/Tot Granulo (auto) 0.2 (0.0-0.5) % Sodium 140 (136-145) mmol/L Potassium 3.4 L (3.5-5.1) mmol/L Chloride 104 (98-107) mmol/L Carbon Dioxide 21.8 (21.0-32.0) mmol/L Anion Gap 17.6 BUN 13.0 (7.0-18.0) mg/dL Creatinine 0.84 (0.55-1.02) mg/dL Est GFR ( Amer) >60 (>=60 mL/min/1.73m^2) Est GFR (Non-Af Amer) >60 (>=60 mL/min/1.73m^2) BUN/Creatinine Ratio 15.5 Glucose 124 H (74-106) mg/dL Calcium 8.9 (8.5-10.1) mg/dL Total Bilirubin 0.5 (0.2-1.0) mg/dL AST 18 (15-37) U/L ALT 16 (14-59) U/L Alkaline Phosphatase 58 (46-116) U/L Total Protein 7.4 (6.4-8.2) g/dL Albumin 3.6 (3.4-5.0) g/dL Globulin 3.8 g/dL Albumin/Globulin Ratio 0.9 Serum HCG, Qual Negative (NEGATIVE) Urine Color Yellow (YELLOW) Urine Clarity Clear (CLEAR) Urine pH >=9.0 A (5.0-9.0) Ur Specific [place] 1.015 (1.005-1.025) Urine Protein Trace (NEG/TRACE) mg/dL Urine Glucose (UA) Negative (NEGATIVE) mg/dL Urine Ketones 15 A (NEGATIVE) mg/dL Urine Occult Blood Moderate A (NEGATIVE) Urine Nitrite Negative (NEGATIVE) Urine Bilirubin Negative (NEGATIVE) Urine Urobilinogen 0.2 (0.2-1.0) EU/dL Ur Leukocyte Esterase Negative (NEGATIVE) Urine RBC 2-5 A (0-2) #/HPF Urine WBC 2-5 A (NONE SEEN) #/HPF Ur Squamous Epith Cells Few A (NONE/RARE) #/LPF Urine Crystals None seen (None Seen) #/HPF Urine Bacteria Trace A (NONE SEEN) #/HPF Urine Casts None seen (NONE SEEN) #/LPF Urine Mucus Trace A (NONE SEEN) Ur Culture Indicated? No Urine Opiates Screen Negative (NEGATIVE) Ur Buprenorphine Scrn Negative (NEGATIVE) Ur Oxycodone Screen Negative (NEGATIVE) Urine Methadone Screen Negative (NEGATIVE) Ur Barbiturates Screen Negative (NEGATIVE) U Tricyclic Antidepress Negative (NEGATIVE) Ur Phencyclidine Scrn Negative (NEGATIVE) Ur Amphetamines Screen Negative (NEGATIVE) U Methamphetamines Scrn Negative (NEGATIVE) U Benzodiazepines Scrn Negative (NEGATIVE) Urine Cocaine Screen Negative (NEGATIVE) U Cannabinoids Screen Positive A (NEGATIVE) Discharge Plan Discharge Chief Complaint: Nausea/Vomiting/Diarrhea Clinical Impression: Gastroenteritis Patient Disposition: Home, Self-Care Time of Disposition Decision: 12:13 Condition: Good Prescriptions / Home Meds: New promethazine 25 mg tablet 25 mg PO TID PRN (Reason: nausea and vomiting) Qty: 20 0RF famotidine [Pepcid] 20 mg tablet 20 mg PO BID Qty: 20 0RF No Action citalopram 20 mg tablet 20 mg PO DAILY Print Language: Romanian Instructions: Gastroenteritis (DC), Acute Nausea and Vomiting (DC) Referrals: Physician,Non-Staff, MD [Primary Care Provider] - 1 week
[2025-01-09 09:39] LABS: Alanine Aminotransferase 16 U/L (14-59); Albumin Globulin Ratio 0.9; Albumin Level 3.6 g/dL (3.4-5.0); Alkaline Phosphatase 58 U/L (46-116); Anion Gap 17.6; Aspartate Amino Transferase 18 U/L (15-37); Blood Urea Nitrogen 13.0 mg/dL (7.0-18.0); Calcium 8.9 mg/dL (8.5-10.1); Carbon Dioxide 21.8 mmol/L (21.0-32.0); Chloride 104 mmol/L (98-107); Estimated GFR (African America >60 (>=60 mL/min/1.73m^2); Estimated GFR (Non-African Ame >60 (>=60 mL/min/1.73m^2); Globulin 3.8 g/dL; Glucose 124 mg/dL (74-106); Potassium 3.4 mmol/L (3.5-5.1); Sodium 140 mmol/L (136-145); Total Protein 7.4 g/dL (6.4-8.2)
[2025-01-09 10:28] LABS: Glucose Urine UA NEGATIVE (NEGATIVE)
[2025-01-09 10:37] LABS: Cast Seen? NONE SEEN #/LPF (NONE SEEN); Crystals Seen? None Seen #/HPF (None Seen); Urine Culture Indicated NO
--- NOTE | 2025-01-09 11:00 | PC.NURSE ---
pt unable to keep down 7-up pop given - informed dr ricardo.
[2025-01-09] MEDS: PROCHLORPERAZINE 10 MG/2 ML VIAL IV (11:23)
[2025-01-09 12:14] LABS: Cannabinoid Screen Urine POSITIVE (NEGATIVE); Methamphetamines Screen Urine NEGATIVE (NEGATIVE); Tricyclic Antidepressant Urine NEGATIVE (NEGATIVE)
== END 2025-01-09 12:25 | disposition home or self-care (01) ==
PROVIDERS: Emergency Provider Emergency Medicine
DX: K52.9 Noninfective gastroenteritis and colitis, unspecified (principal)
CPT/HCPCS: 36415; 80053; 80307; 81001; 84703; 85025; 96361; 96372; 96374; 96375; 99284; J0500; J0780; J1885; J2405; J3490